=== PATIENT | female | born 1970 | race Caucasian/White ===

== ENCOUNTER 2020-08-30 11:08 | Emergency (ER) | payer MEDICAID, SELFPAY ==
[2020-08-30 11:23] VITALS: BP 148/71; PULSE 67; RESP 18; TEMP 36.6; O2SAT 98; BMI 37.1
--- NOTE | 2020-08-30 11:45 | ECG_ITS ---
Test Reason : SYNCOPE Blood Pressure : / mmHG Vent. Rate : 067 BPM Atrial Rate : 067 BPM P-R Int : 164 ms QRS Dur : 100 ms QT Int : 406 ms P-R-T Axes : 042 019 028 degrees QTc Int : 429 ms Normal sinus rhythm Normal ECG When compared with ECG of 26-FEB-2020 19:21, No significant change was found Referred By: Yuko Horan Electronically Signed By:Los Mora
--- NOTE | 2020-08-30 11:46 | CT_ITS ---
EXAMINATION: CT HEAD WITHOUT CONTRAST CT CERVICAL SPINE WITHOUT CONTRAST CLINICAL INFORMATION: Dizziness and syncope on with head injury/headache. COMPARISON: Cervical spine CT 12/26/2016. Head CT 08/24/2016. TECHNIQUE: CT of the head and cervical spine were performed without intravenous contrast. Multiplanar reformats were rendered and reviewed. This CT examination was performed using dose optimization techniques as appropriate, variously including the following: *Automated exposure control *Adjustment of mA and/or kV according to patient size (this includes techniques or standardized protocols for targeted exams where dose is matched to indication/reason for exam; i.e. extremities or head) *Use of iterative reconstruction technique DLP: 734 mGy-cm. FINDINGS: CT head: There is no intracranial hemorrhage, extra-axial collection, mass effect, or territorial infarction. The ventricles are normal in size and configuration without evidence of hydrocephalus. The calvarium is intact without fracture. The visualized paranasal sinuses and mastoid air cells are clear. CT cervical spine: There is reversal of the normal cervical lordosis but no traumatic listhesis is seen. The craniovertebral junction appears intact. There is no evidence of fracture. There is no significant narrowing of the spinal canal. There is advanced right-sided facet arthropathy at C2-C3. The extraspinal soft tissues are within normal limits. No consolidation is seen within the upper lungs. CT/CT cervical spine wo con IMPRESSION: CT head: - No acute intracranial abnormality. CT cervical spine: - No cervical spine fracture or traumatic malalignment. Advanced facet arthropathy on the right at C2-C3.
--- NOTE | 2020-08-30 11:46 | XR_ITS ---
EXAMINATION: XR chest 2V CLINICAL INFORMATION: Reason for Exam dizziness and syncopy on c head injury/GREEN COMPARISON: Prior study 08/24/2016. TECHNIQUE: XR chest 2V Lungs and Tosha: Both lungs are clear. Pleura: Normal. Costophrenic angles are sharp. No pneumothorax. Heart: The heart is normal in size. Mediastinum: The mediastinum is within normal limits.. Bones: Skeletal structures included are normal for patient's age. XR/XR chest 2V IMPRESSION: No radiographic evidence of acute infiltrates or failure.
--- NOTE | 2020-08-30 11:47 | XR_ITS ---
EXAMINATION: XR knee LT 4V CLINICAL INFORMATION: Reason for Exam pt c left knee pain s/p gadolinium without COMPARISON: None available at the time of this dictation. TECHNIQUE: frontal, lateral, tunnel and patella sunrise views FINDINGS: BONES: No fracture or dislocation is present. JOINTS: Narrowing of joint spaces and developed osteophytes from the edges of articular surfaces suggest degenerative osteoarthritis. SOFT TISSUE: Normal XR/XR knee LT 4V IMPRESSION: Mild to moderate degenerative osteoarthritis involving primarily the medial compartment. No joint effusion.
[2020-08-30 11:55] VITALS: BP 138/63; BP 152/78; PULSE 64; PULSE 66
[2020-08-30 11:56] VITALS: BP 133/67; PULSE 74
[2020-08-30 11:57] LABS: Basophils Absolute Auto 0.1 X10*3/uL (0.0-0.2); Basophils Percent Auto 0.8 % (0-2); Eosinophils Absolute Auto 0.4 X10*3/uL (0.0-0.4); Eosinophils Percent Auto 7.1 % (0-4); Hematocrit 41.5 % (37-47); Hemoglobin 13.6 g/dl (12.0-16.0); Imm Gran Abs Auto 0.01 X10*3/uL (0.00-0.03); Imm Gran Pct Auto 0.2 % (0.0-0.4); Lymphocytes Absolute Auto 1.9 X10*3/uL (1.2-4.9); Lymphocytes Percent Auto 32.7 % (20-40); MANUAL DIFF FLAG NO; Mean Corpuscular HGB Conc 32.8 g/dl (31.0-35.0); Mean Corpuscular Hemoglobin 30.9 pg (27.0-33.0); Mean Corpuscular Volume 94.3 fL (80-98); Mean Platelet Volume 9.7 fL (9.4-12.3); Monocytes Absolute Auto 0.5 X10*3/uL (0.1-1.2); Monocytes Percent Auto 7.8 % (2-11); Neutrophils Percent Auto 51.4 % (45-73); Platelet Count 289 X10*3/uL (160-400); Red Cell Distribution Width 12.9 % (11.0-16.0); White Blood Count 5.9 X10*3/uL (4.8-10.8)
[2020-08-30 12:00] VITALS: BP 133/67; PULSE 58; RESP 22; TEMP 36.6; O2SAT 99
[2020-08-30] MEDS: ondansetron HCL 4 MG/2 ML VIAL IVPUSH (12:02)
[2020-08-30] MEDS: 0.9 % Sodium Chloride 1,000 ML 999 ML IVCONT (12:02)
[2020-08-30] MEDS: oxyCODONE HCl Immed Release 5 MG TABLET PO (12:02)
[2020-08-30 12:04] LABS: Prothrombin Time 12.4 SEC (10.8-13.0)
[2020-08-30 12:10] LABS: D Dimer < 200 NG/ML
[2020-08-30 12:29] LABS: Alanine Aminotransferase 10 U/L (0-31); Albumin Level 3.9 g/dL (3.5-5.0); Alkaline Phosphatase 74 U/L (39-117); Anion Gap 11 (12-20); Aspartate Amino Transferase 12 U/L (5-31); Bilirubin Direct 0.2 mg/dL (0.0-0.5); Bilirubin Total 0.7 mg/dL (0.0-1.0); Blood Urea Nitrogen 15 mg/dL (9-16); Calcium 9.3 mg/dL (8.4-10.2); Carbon Dioxide 28 mmol/L (22-29); Chloride 103 mmol/L (96-108); Creatinine Clr Calc Pharmacy 95.5; Estimated Glomerular Filt Rate > 60; Glucose Random 76 mg/dL (60-115); Magnesium 1.7 mg/dL (1.6-2.6); Potassium 4.3 mmol/l (3.3-5.1); Sodium 138 mmol/L (135-145); Total Protein 6.9 g/dL (6.5-8.0)
--- NOTE | 2020-08-30 12:33 | ED.DIZZY ---
HPI - Dizziness General Chief Complaint: Syncope Stated Complaint: WEAKNESS Time Seen by Provider: 08/30/20 11:17 Source: patient Mode of arrival: ambulatory Limitations: no limitations History of Present Illness HPI Narrative: 49yoF c PMHx of anxiety, depression, fibromyalgia, arthritis, chronic back pain, neuropathy and IBS presenting to the ED with complaints of 2 syncopal episodes that occurred on with loss of consciousness and head injury along with injury to left knee. Reports she has had consistent dizziness worse with changing position usually when she stands up and starts to walk since and she has had a headache, neck pain and nausea since as well. Denies any fevers, chills, diaphoresis, chest pain, shortness of breath, focal weakness,, nasal congestion, ear discomfort, change in hearing, ringing in the ears, ear fullness, palpitations, hemoptysis, melena, change in medications, recent illness, recent trauma,, vision changes, difficulty speaking, difficulty swallowing, gait changes, facial numbness or any paresthesias, facial weakness, rectal bleeding or any other symptoms complaints or concerns at this time. Related Data Previous Rx's Medication Instructions Recorded oxycodone-acetaminophen [Percocet] 1 tab PO Q6H PRN #10 tab 08/30/20 Allergies Allergy/AdvReac Type Severity Reaction Status Date / Time amoxicillin [AMOXICILLIN] Allergy Unknown HIVES Unverified 05/29/20 18:05 codeine [Tylenol-Codeine] Allergy Unknown Verified 08/17/19 00:00 compazine Allergy Unknown Unverified 08/17/19 00:00 hydromorphone [From DILAUDID] Allergy Unknown VOMITING,DI Unverified 05/29/20 18:05 ZZY meperidine [Demerol] Allergy Unknown Verified 11/07/12 00:00 acetaminophen AdvReac Unknown VOMITING Unverified 05/29/20 18:05 [From Tylenol-Codeine] From COMPAZINE Allergy Unknown SEIZURE Uncoded 05/29/20 18:05 From DEMEROL Allergy Unknown RASH Uncoded 05/29/20 18:05 tylonol with codene Allergy Unknown Uncoded 11/07/12 00:00 From Tylenol-Codeine AdvReac Unknown VOMITING Uncoded 05/29/20 18:05 Review of Systems Review of Systems: Constitutional : No Fever, No Chills, No Night Sweats, No Fatigue, No Malaise ENT/Mouth : No Ear Pain, No Nasal Congestion, No Sinus Pain, No sore throat, No Rhinorrhea Eyes: No Eye Pain, No Swelling, No Redness, No Foreign Body, No Discharge, No Vision Changes Cardiovascular : No Chest Pain, No SOB, No Dyspnea on Exertion, No Orthopnea, No Palpitations Respiratory : No Cough, No Sputum, No Wheezing, No Dyspnea Gastrointestinal : + Nausea, No Vomiting, No Diarrhea, No Constipation, No abdominal Pain, No Hematochezia, No Melena Genitourinary : No Dysuria, No Urinary Frequency, No Urinary Incontinence, No Urgency, No Flank Pain Musculoskeletal : + joint pain, No Myalgias Skin : No lacerations Neuro : No Numbness, No Paresthesias, + Loss of Consciousness, + Dizziness, + Headache Yes all other systems are reviewed and are negative [facility] Past Medical History Attestation statement: The following information was validated with the patient. Medical History Arthritis delivery delivered Cholecystitis Fibromyalgia Neuropathy Social History Social History Smoking Status: Former smoker Use of substances other than those prescribed or required for medical reasons: No Advance Directives: No Advance Directives Information Provided: Yes Physical Exam Vital Signs: Vital Signs: Last Vital Signs Temp 97.6 F 08/30/20 14:00 Pulse 64 08/30/20 14:00 Resp 14 08/30/20 14:00 BP 125/62 08/30/20 14:00 Pulse Ox 98 08/30/20 14:00 Body Mass Index 37.1 Vital signs have been reviewed as normal and appeared to be correct. Blood pressure normal. Heart rate normal. Respiration rate normal. Temperature normal. Oxygen saturation normal. Appearance: Alert. Oriented X3. No acute distress. Head: Normal external exam. Normocephalic. Atraumatic. Able to rotate head bilaterally. Eyes: PERRLA. EOMI. No nystagmus noted. Conjunctiva and sclera normal. Eyelids normal. Corneal reflex normal. ENT: EAC normal. TM's Normal. Hearing normal. Pharynx normal. Uvula midline. tongue midline. Moist mucous membranes. No trismus noted. No drooling noted. No muffled voice noted. Neck: Normal inspection. Neck supple. FROM. No adenopathy. No meningeal signs. No neck mass noted. CVS: Normal heart rate and rhythm. Heart sound normal. No murmurs noted. Pulses normal throughout. Respiratory: No respiratory distress. Painless inspiration. Breath sounds normal. No wheezes/rales/rhonchi noted. Chest nontender. No accessory muscle usage noted or decreased air movement noted. Abdomen: Soft and nontender. Bowel sounds normal in all 4 quadrants. No distention noted. No organomegaly noted. No visible injury noted. Back: Full range of motion noted. No point tenderness. No step-offs or deformities noted. Patient has full range of motion. No rashes/lesions/induration/fluctuance or signs infection noted. No abrasions/lacerations/ecchymosis noted. Negative straight leg raise bilaterally. Skin: Skin warm and dry. Normal skin color. Normal skin turgor. No rashes/lesions/lacerations noted. Extremities: No lower extremity edema. Extremities exhibit normal range of motion. Left knee with mild soft tissue swelling and ecchymosis noted and tenderness to palpation although has full range of motion otherwise all other Extremities nontender. Able to shrug shoulders bilaterally and keep up against resistance. Neuro: Oriented X 3. No motor deficit. No sensory deficit. Reflexes normal. Moving all extremities. No focal motor deficits. Cranial nerves II-XI intact bilaterally. Facial strength normal. Normal cognition. Speech normal. Gait normal. Strength 5/5 throughout. No pronator drift. No tremor noted. No fasciculations noted. Muscle tone normal throughout. No asterixis noted. Tiifwm-ns-deap test normal. Heel to delacruz test normal. Tandem gait normal. Does not sway with eyes open. Romberg test negative. No rigidity noted. NIHSS score 0. Course Course Course Narrative: 11:46am - 49yoF c PMHx of anxiety, depression, fibromyalgia, arthritis, chronic back pain, neuropathy and IBS presenting to the ED c c/o 2 witnessed syncopal episodes that occurred on c LOC c persistent dizziness worse with walking, headache, neck pain, nausea, generalized weakness and left knee pain. Denies being on any blood thinners. - Concern for CVA vs SAH vs ACS vs Vertigo vs electrolyte abnormality - Plan: Labs, UA, SARS/flu/RSV swab, CT scan of brain/cervical spine, x-ray of left knee, CXR, EKG, Orthostatic vitals. Provide a Liter of IVF's, 5 mg of oxycodone, 4 mg of Zofran and re-evaluate Reevaluation(s) Reevaluation #1: - all labs within normal limits including troponin and a D-dimer. UA within normal limits no evidence of UTI. Chest x-ray within normal limits no acute processes noted. Normal limits no acute processes noted. X-ray of left knee revealed chronic changes no acute processes noted. EKG normal sinus rhythm no acute ischemic changes noted. Orthostatic vitals within normal limits patient denied any dizziness. I offer the patient admission for unknown cause of syncope and she declined at this time reports that she will come back if she starts to feel worse. Reports she feels better after the IV fluids. - will DC home with symptomatic treatment along with instructions return if any new or worsening symptoms to follow-up with PCP. Patient understands agrees the plan. Time: 14:37 [facility] - Dizziness Medical Records Attestation: I reviewed the patient's medical records. Lab Data Attestation: I reviewed the patient's lab results. Result diagrams: 08/30/20 11:49 08/30/20 11:49 Labs: Lab Results 08/30/20 08/30/20 08/30/20 Range/Units 11:49 11:49 11:49 WBC 5.9 (4.8-10.8) X10*3/uL RBC 4.40 (4.20-5.50) X10*6/uL Hgb 13.6 (12.0-16.0) g/dl Hct 41.5 (37-47) % MCV 94.3 (80-98) fL MCH 30.9 (27.0-33.0) pg MCHC 32.8 (31.0-35.0) g/dl RDW 12.9 (11.0-16.0) % Plt Count 289 (160-400) X10*3/uL MPV 9.7 (9.4-12.3) fL Immature Gran % (Auto) 0.2 (0.0-0.4) % Neut % (Auto) 51.4 (45-73) % Lymph % (Auto) 32.7 (20-40) % [place] % (Auto) 7.8 (2-11) % Eos % (Auto) 7.1 H (0-4) % Baso % (Auto) 0.8 (0-2) % Lymph # (Auto) 1.9 (1.2-4.9) X10*3/uL [place] # (Auto) 0.5 (0.1-1.2) X10*3/uL Eos # (Auto) 0.4 (0.0-0.4) X10*3/uL Baso # (Auto) 0.1 (0.0-0.2) X10*3/uL Abs Immat Gran (auto) 0.01 (0.00-0.03) X10*3/uL Absolute Neuts (auto) 3.0 (2.0-8.3) X10*3/uL Absolute Nucleated RBC 0.000 (0.0-0.012) X10*3/uL Nucleated RBC % (auto) 0.0 (0.0-0.2) /100WBC PT 12.4 (10.8-13.0) SEC INR 1.0 (0.9-1.1) D-Dimer < 200 NG/ML Sodium 138 (135-145) mmol/L Potassium 4.3 (3.3-5.1) mmol/l Chloride 103 (96-108) mmol/L Carbon Dioxide 28 (22-29) mmol/L Anion Gap 11 L (12-20) BUN 15 (9-16) mg/dL Creatinine 0.87 (0.5-1.4) mg/dL Estim Creat Clear Calc 95.5 Estimated GFR > 60 Random Glucose 76 (60-115) mg/dL Calcium 9.3 (8.4-10.2) mg/dL Magnesium 1.7 (1.6-2.6) mg/dL Total Bilirubin 0.7 (0.0-1.0) mg/dL Direct Bilirubin 0.2 (0.0-0.5) mg/dL AST 12 (5-31) U/L ALT 10 (0-31) U/L Alkaline Phosphatase 74 (39-117) U/L Troponin I High Sens (<3.5-17.0) ng/L B-Natriuretic Peptide (<100) pg/mL Total Protein 6.9 (6.5-8.0) g/dL Albumin 3.9 (3.5-5.0) g/dL Urine Color Urine Appearance Urine pH (5.0-8.0) Ur Specific [place] (1.005-1.025) Urine Protein (NEG-TRACE) MG/DL Urine Glucose (UA) (NEG) MG/DL Urine Ketones (NEG) MG/DL Urine Blood (NEG) Urine Nitrite (NEG) Ur Leukocyte Esterase (NEG) Urine RBC (0) /HPF Urine WBC (0-4) /HPF Ur Squamous Epith Cells /LPF Urine Bacteria /LPF Urine Opiates Screen (Not Detect) Ur Barbiturates Screen (Not Detect) Ur Phencyclidine Scrn (Not Detect) Ur Amphetamines Screen (Not Detect) U Benzodiazepines Scrn (Not Detect) Urine Cocaine Screen (Not Detect) U Marijuana (THC) Screen (Not Detect) Coronavirus (PCR) (Negative) Influenza Type A (PCR) (Negative) Influenza Type B (PCR) (Negative) RSV RNA Qual (PCR) (Negative) 08/30/20 08/30/20 08/30/20 Range/Units 11:49 11:50 12:23 WBC (4.8-10.8) X10*3/uL RBC (4.20-5.50) X10*6/uL Hgb (12.0-16.0) g/dl Hct (37-47) % MCV (80-98) fL MCH (27.0-33.0) pg MCHC (31.0-35.0) g/dl RDW (11.0-16.0) % Plt Count (160-400) X10*3/uL MPV (9.4-12.3) fL Immature Gran % (Auto) (0.0-0.4) % Neut % (Auto) (45-73) % Lymph % (Auto) (20-40) % [place] % (Auto) (2-11) % Eos % (Auto) (0-4) % Baso % (Auto) (0-2) % Lymph # (Auto) (1.2-4.9) X10*3/uL [place] # (Auto) (0.1-1.2) X10*3/uL Eos # (Auto) (0.0-0.4) X10*3/uL Baso # (Auto) (0.0-0.2) X10*3/uL Abs Immat Gran (auto) (0.00-0.03) X10*3/uL Absolute Neuts (auto) (2.0-8.3) X10*3/uL Absolute Nucleated RBC (0.0-0.012) X10*3/uL Nucleated RBC % (auto) (0.0-0.2) /100WBC PT (10.8-13.0) SEC INR (0.9-1.1) D-Dimer NG/ML Sodium (135-145) mmol/L Potassium (3.3-5.1) mmol/l Chloride (96-108) mmol/L Carbon Dioxide (22-29) mmol/L Anion Gap (12-20) BUN (9-16) mg/dL Creatinine (0.5-1.4) mg/dL Estim Creat Clear Calc Estimated GFR Random Glucose (60-115) mg/dL Calcium (8.4-10.2) mg/dL Magnesium (1.6-2.6) mg/dL Total Bilirubin (0.0-1.0) mg/dL Direct Bilirubin (0.0-0.5) mg/dL AST (5-31) U/L ALT (0-31) U/L Alkaline Phosphatase (39-117) U/L Troponin I High Sens < 3.5 (<3.5-17.0) ng/L B-Natriuretic Peptide 24 (<100) pg/mL Total Protein (6.5-8.0) g/dL Albumin (3.5-5.0) g/dL Urine Color YELLOW Urine Appearance CLEAR Urine pH 5.5 (5.0-8.0) Ur Specific [place] <= 1.005 (1.005-1.025) Urine Protein NEG (NEG-TRACE) MG/DL Urine Glucose (UA) NEG (NEG) MG/DL Urine Ketones NEG (NEG) MG/DL Urine Blood TRACE (NEG) Urine Nitrite NEG (NEG) Ur Leukocyte Esterase NEG (NEG) Urine RBC 0-2 (0) /HPF Urine WBC 0 (0-4) /HPF Ur Squamous Epith Cells TRACE /LPF Urine Bacteria NONE /LPF Urine Opiates Screen (Not Detect) Ur Barbiturates Screen (Not Detect) Ur Phencyclidine Scrn (Not Detect) Ur Amphetamines Screen (Not Detect) U Benzodiazepines Scrn (Not Detect) Urine Cocaine Screen (Not Detect) U Marijuana (THC) Screen (Not Detect) Coronavirus (PCR) NEGATIVE (Negative) Influenza Type A (PCR) NEGATIVE (Negative) Influenza Type B (PCR) NEGATIVE (Negative) RSV RNA Qual (PCR) NEGATIVE (Negative) 08/30/20 Range/Units 12:23 WBC (4.8-10.8) X10*3/uL RBC (4.20-5.50) X10*6/uL Hgb (12.0-16.0) g/dl Hct (37-47) % MCV (80-98) fL MCH (27.0-33.0) pg MCHC (31.0-35.0) g/dl RDW (11.0-16.0) % Plt Count (160-400) X10*3/uL MPV (9.4-12.3) fL Immature Gran % (Auto) (0.0-0.4) % Neut % (Auto) (45-73) % Lymph % (Auto) (20-40) % [place] % (Auto) (2-11) % Eos % (Auto) (0-4) % Baso % (Auto) (0-2) % Lymph # (Auto) (1.2-4.9) X10*3/uL [place] # (Auto) (0.1-1.2) X10*3/uL Eos # (Auto) (0.0-0.4) X10*3/uL Baso # (Auto) (0.0-0.2) X10*3/uL Abs Immat Gran (auto) (0.00-0.03) X10*3/uL Absolute Neuts (auto) (2.0-8.3) X10*3/uL Absolute Nucleated RBC (0.0-0.012) X10*3/uL Nucleated RBC % (auto) (0.0-0.2) /100WBC PT (10.8-13.0) SEC INR (0.9-1.1) D-Dimer NG/ML Sodium (135-145) mmol/L Potassium (3.3-5.1) mmol/l Chloride (96-108) mmol/L Carbon Dioxide (22-29) mmol/L Anion Gap (12-20) BUN (9-16) mg/dL Creatinine (0.5-1.4) mg/dL Estim Creat Clear Calc Estimated GFR Random Glucose (60-115) mg/dL Calcium (8.4-10.2) mg/dL Magnesium (1.6-2.6) mg/dL Total Bilirubin (0.0-1.0) mg/dL Direct Bilirubin (0.0-0.5) mg/dL AST (5-31) U/L ALT (0-31) U/L Alkaline Phosphatase (39-117) U/L Troponin I High Sens (<3.5-17.0) ng/L B-Natriuretic Peptide (<100) pg/mL Total Protein (6.5-8.0) g/dL Albumin (3.5-5.0) g/dL Urine Color Urine Appearance Urine pH (5.0-8.0) Ur Specific [place] (1.005-1.025) Urine Protein (NEG-TRACE) MG/DL Urine Glucose (UA) (NEG) MG/DL Urine Ketones (NEG) MG/DL Urine Blood (NEG) Urine Nitrite (NEG) Ur Leukocyte Esterase (NEG) Urine RBC (0) /HPF Urine WBC (0-4) /HPF Ur Squamous Epith Cells /LPF Urine Bacteria /LPF Urine Opiates Screen Not Detected (Not Detect) Ur Barbiturates Screen Not Detected (Not Detect) Ur Phencyclidine Scrn Not Detected (Not Detect) Ur Amphetamines Screen Not Detected (Not Detect) U Benzodiazepines Scrn Not Detected (Not Detect) Urine Cocaine Screen Not Detected (Not Detect) U Marijuana (THC) Screen POSITIVE H (Not Detect) Coronavirus (PCR) (Negative) Influenza Type A (PCR) (Negative) Influenza Type B (PCR) (Negative) RSV RNA Qual (PCR) (Negative) Imaging Data Chest x-ray: Attestation: I personally reviewed and interpreted this imaging study as follows: Radiologist's impression: IMPRESSION: No radiographic evidence of acute infiltrates or failure. Left knee x-ray: Attestation: I personally reviewed and interpreted this imaging study as follows: Radiologist's impression: IMPRESSION: Mild to moderate degenerative osteoarthritis involving primarily the medial compartment. No joint effusion. CT scan of brain and cervical spine: Attestation: I personally reviewed and interpreted this imaging study as follows: Radiologist's impression: IMPRESSION: CT head: - No acute intracranial abnormality. CT cervical spine: - No cervical spine fracture or traumatic malalignment. Advanced facet arthropathy on the right at C2-C3. ECG Data Attestation: I personally reviewed and interpreted this ECG as follows: ECG interpretation date: 08/30/20 ECG interpretation time: 11:25 Interpretation: Normal sinus rhythm with a ventricular rate of 67 and normal OH interval with normal QRS duration wound normal QT/QTC interval. No acute ischemic changes noted at this time. No prior EKG to compare to at this time. Discharge Plan Discharge Clinical Impression: Syncope, Head injury, Concussion, Left knee sprain Patient Disposition: Home, Self-Care Instructions: Knee Sprain (ED), Syncope (ED), Concussion (ED), Cervical Sprain (ED) Prescriptions: New oxycodone-acetaminophen [Percocet] 5-325 mg tablet 1 tab PO Q6H PRN (Reason: pain) Qty: 10 RF: 0 Referrals: Physician,None [Primary Care Provider] - 2 days (your pcp) Stand Alone Forms: Work/School Release Print Language: Ivorian
[2020-08-30 12:34] LABS: B Type Natriuretic Peptide 24 pg/mL (<100); Troponin-I High Sensitivity < 3.5 ng/L (<3.5-17.0)
[2020-08-30 12:47] LABS: Influenza A PCR NEGATIVE (Negative); Influenza B PCR NEGATIVE (Negative); Resp Syncy Virus RNA Qual PCR NEGATIVE (Negative); SARS COV2 PCR INHOUSE NEGATIVE (Negative)
--- NOTE | 2020-08-30 13:01 | PC.NURSE ---
pt reports feeling a little better after the pain medication, pain at 8/10, but still feeling a little dizzy, ns on the monitor
[2020-08-30 13:03] LABS: Glucose Urine UA NEG (NEG); Leukocyte Esterase Urine NEG (NEG); Nitrite Urine NEG (NEG); PH 5.5 (5.0-8.0); Specific Gravity - Urine <= 1.005 (1.005-1.025); Urine Blood TRACE (NEG); Urine Ketones NEG (NEG); Urine Protein NEG (NEG-TRACE)
[2020-08-30 13:11] LABS: Appearance Urine CLEAR; Color Urine YELLOW
[2020-08-30 13:20] LABS: RBC Urine 0-2 /HPF (0); Squamous Epithelial Cell Urine TRACE /LPF; WBC Urine 0 /HPF (0-4)
[2020-08-30 13:22] LABS: Amphetamine Screen Urine Not Detected (Not Detect); Barbiturates, Urine Not Detected (Not Detect); Benzodiazepines Screen Urine Not Detected (Not Detect); Cannabinoid Screen Urine POSITIVE (Not Detect); Opiate Screen Urine Not Detected (Not Detect); Phencyclidine Screen Urine Not Detected (Not Detect)
[2020-08-30 13:43] LABS: Cocaine Screen Urine Not Detected (Not Detect)
[2020-08-30 14:00] VITALS: BP 125/62; PULSE 64; RESP 14; TEMP 36.4; O2SAT 98
== END 2020-08-30 14:56 | disposition home or self-care (01) ==
PROVIDERS: Physician Assistant Medical; Emergency Provider Emergency Medicine
DX: S06.0X0A Concussion without loss of consciousness, initial encounter (principal); S83.92XA Sprain of unspecified site of left knee, initial encounter; R55 Syncope and collapse; R53.1 Weakness; F41.9 Anxiety disorder, unspecified; W01.0XXA Fall on same level from slipping, tripping and stumbling without subsequent striking against object, initial encounter; Y93.9 Activity, unspecified; Y92.9 Unspecified place or not applicable; Y99.9 Unspecified external cause status; Z79.899 Other long term (current) drug therapy
CPT/HCPCS: 0241U; 36415; 70450; 71046; 72125; 73564; 80048; 80076; 80307; 81001; 81003; 83735; 83880; 84484; 85025; 85379; 85610; 93005; 96361; 96374; 99285; J2405

== ENCOUNTER 2020-10-17 12:57 | Outpatient (REF) | payer OTHER, SELFPAY ==
--- NOTE | ~2020-10-17 | US_ITS ---
EXAMINATION: US VENOUS ULTRASOUND WITH DOPPLER LOWER EXTREMITY, LEFT CLINICAL INFORMATION: Left lower extremity pain. COMPARISON: None TECHNIQUE: Ultrasound of the deep veins is performed from the hip to the calf with compression sonography and color and pulse Doppler assessment. Spectral analysis with color-flow imaging is performed. FINDINGS: There is normal venous compression and respiratory variation and augmented flow. The visualized common femoral vein, superficial femoral vein, profunda femoral vein, popliteal vein, and the trifurcation region shows no evidence of deep venous thrombosis. There is no popliteal cyst. If the patient's symptoms persist, followup ultrasound in 5 days 7 days might be of value to exclude proximal propagation from a non-visualized calf vein. US/US venous duplex LE LT IMPRESSION: No evidence for deep venous thrombosis in the visualized veins of the left lower extremity.
== END 2020-10-17 12:58 | disposition home or self-care (01) ==
LOC: HO.HMGCX 12:57
PROVIDERS: PCP Internal Medicine; Visit Provider Nurse Practitioner Family
DX: M79.662 Pain in left lower leg (principal)
CPT/HCPCS: 93971

== ENCOUNTER 2020-10-24 17:49 | Emergency (ER) | payer OTHER, SELFPAY ==
--- NOTE | ~2020-10-24 | XR_ITS ---
EXAMINATION: XR LUMBOSACRAL SPINE CLINICAL INFORMATION: Pain. Sciatica COMPARISON: 08/24/2016 TECHNIQUE: Three views of the lumbosacral spine. FINDINGS: The vertebral bodies and posterior elements are normal. The disc spaces are preserved and the vertebral alignment is normal. The paraspinal soft tissues are normal. Surgical clips in the right upper quadrant likely from prior cholecystectomy. Pelvic clips noted as well. XR/XR lumbar spine 2-3V IMPRESSION: No acute bony abnormality. Not significantly changed from the prior study.
--- NOTE | ~2020-10-24 | US_ITS ---
EXAMINATION: US VENOUS ULTRASOUND WITH DOPPLER LOWER EXTREMITY, LEFT CLINICAL INFORMATION: Left leg pain and swelling with edema COMPARISON: DVT study 7 days ago on 10/17/2020 TECHNIQUE: Ultrasound of the deep veins is performed from the hip to the calf with compression sonography and color and pulse Doppler assessment. Spectral analysis with color-flow imaging is performed. FINDINGS: There is normal venous compression and respiratory variation and augmented flow. The visualized common femoral vein, superficial femoral vein, profunda femoral vein, popliteal vein, and the trifurcation region shows no evidence of deep venous thrombosis. There is no significant popliteal fossa cyst. The contralateral right common femoral vein appears normal. US/US venous duplex LE LT IMPRESSION: No DVT demonstrated in the left lower extremity.
--- NOTE | ~2020-10-24 | XR_ITS ---
EXAMINATION: LEFT KNEE AND LEFT HIP CLINICAL INFORMATION: Hip and knee pain COMPARISON: Left knee radiographs 08/30/2020 TECHNIQUE: 2 views pelvis with 2 additional views left hip, 4 views left knee FINDINGS: Pelvis and left hip: Surgical clips are present in the pelvis. No bony abnormality is seen. The hip joint appears unremarkable. Left knee: Some mild degenerative changes are present in the left knee with mild narrowing in the medial compartment with some associated osteophyte formation. Narrowing is also present at the patellofemoral compartment with some posterior osteophytes. No joint effusion is seen. There is been no interval change when compared to the prior study. XR/XR knee LT 4V IMPRESSION: Negative radiographs of the left hip Mild degenerative changes in the knee.
--- NOTE | ~2020-10-24 | XR_ITS ---
EXAMINATION: LEFT KNEE AND LEFT HIP CLINICAL INFORMATION: Hip and knee pain COMPARISON: Left knee radiographs 08/30/2020 TECHNIQUE: 2 views pelvis with 2 additional views left hip, 4 views left knee FINDINGS: Pelvis and left hip: Surgical clips are present in the pelvis. No bony abnormality is seen. The hip joint appears unremarkable. Left knee: Some mild degenerative changes are present in the left knee with mild narrowing in the medial compartment with some associated osteophyte formation. Narrowing is also present at the patellofemoral compartment with some posterior osteophytes. No joint effusion is seen. There is been no interval change when compared to the prior study. XR/XR hip LT min 2V IMPRESSION: Negative radiographs of the left hip Mild degenerative changes in the knee.
[2020-10-24 19:11] VITALS: BP 140/77; PULSE 74; RESP 18; TEMP 36.6; O2SAT 100; BMI 43.5
--- NOTE | 2020-10-24 21:54 | ED_ITS ---
HPI - Extremity Injury (Lower) General Chief Complaint: Extremity Injury, Lower Stated Complaint: leg pain Time Seen by Provider: 10/24/20 23:30 Source: patient Mode of arrival: ambulatory Limitations: no limitations History of Present Illness HPI Narrative: 50-year-old female with past medical history of chronic back pain, bulging cervical intervertebral disc disorder, anxiety, fibromyalgia, arthritis, fibromyalgia, IBS presents with several weeks of left knee pain. Her pain progressively increased had seen her primary care several times and given cyclobenzaprine with poor effect. She feels like the knee is swollen, that the leg is tight, and that she is also having a difficult time ambulating. She states her knee gave out twice over the past 24 hours. She does not report any fevers or chills, chest pain or pressure, chest pain on inspiration, palpitations, shortness of breath, abdominal pain, abdominal distention, dysuria, hematuria, weakness, lightheadedness, loss of sensation to the extremities, and indication of cauda equina. MD complaint: knee injury Onset (ago): week(s) (3) Type of Injury: unknown Severity: severe Severity scale (1-10): 10 Relieving factors: nothing Exacerbating factors: weight bearing and movement Associated symptoms: swelling and able to partially bear weight Other symptoms: none Treatments prior to arrival: cold therapy, NSAIDS and other (Elevation, muscle relaxers) Related Data Previous Rx's Medication Instructions Recorded oxycodone-acetaminophen [Percocet] 1 tab PO Q6H PRN #10 tab 08/30/20 cyclobenzaprine 10 mg tablet 10 mg PO BEDTIME PRN #10 tab 10/17/20 lidocaine 5 % topical patch 1 patch TOPICAL DAILY #15 ea 10/17/20 cyclobenzaprine 10 mg tablet 10 mg PO TID PRN #15 tab 10/20/20 tramadol 50 mg PO Q8H PRN #10 tab 10/24/20 tramadol 50 mg PO Q8H PRN #10 tab 10/24/20 Allergies Allergy/AdvReac Type Severity Reaction Status Date / Time amoxicillin [AMOXICILLIN] Allergy Unknown HIVES Verified 10/24/20 19:11 codeine [Tylenol-Codeine] Allergy Unknown Vomiting Verified 10/24/20 19:11 compazine Allergy Unknown Seizure Verified 10/24/20 19:11 hydromorphone [From DILAUDID] Allergy Unknown VOMITING,DI Verified 10/24/20 19:11 ZZY meperidine [Demerol] Allergy Unknown Rash Verified 10/24/20 19:11 Review of Systems Review of Systems: Constitutional: No Fever, No Chills ENT/Mouth: No Ear Pain, No Hoarseness, No sore throat Eyes: No Eye Pain, No Swelling, No Redness, No Foreign Body Cardiovascular: No Chest Pain, No SOB Respiratory: No Cough, No Dyspnea Gastrointestinal: No Nausea, No Vomiting, No Diarrhea, No abdominal Pain Genitourinary: No Dysuria, No Hematuria Musculoskeletal: positive left knee pain and left lower extremity swelling, No Myalgias, No Joint Swelling Skin: No Skin lacerations, No rash Neuro: No Weakness, No Numbness, No Paresthesias, No Loss of Consciousness, No Dizziness, No Headache Psych: No Anxiety/Panic, No Depression Heme/Lymph: no easy bruising, no Lymphadenopathy Endocrine: No Polyuria, No Polydipsia Yes all other systems are reviewed and are negative [facility] Past Medical History Attestation statement: The following information was validated with the patient. Source: old records reviewed Medical History Arthritis delivery delivered Cholecystitis Fibromyalgia Neuropathy Social History Social History Alcohol intake: unknown Smoking Status: Unknown if ever smoked Use of substances other than those prescribed or required for medical reasons: No Advance Directives: No Advance Directives Information Provided: Yes Physical Exam Vital Signs: Vital Signs: Last Vital Signs Temp 997.4 F H 10/24/20 21:58 Pulse 71 10/24/20 21:58 Resp 14 10/24/20 21:58 BP 129/80 10/24/20 21:58 Pulse Ox 100 10/24/20 21:58 Body Mass Index 43.5 Appearance: Alert. Oriented X3. No acute distress. Eyes: Pupils equal, round and reactive to light. ENT: Pharynx normal. Neck: Normal inspection. Neck supple. CVS: Normal heart rate and rhythm. Pulses normal. Respiratory: No respiratory distress. Breath sounds normal. Abdomen: Soft and nontender. Skin: Skin warm and dry. Normal skin color. Normal skin turgor. Extremities: Left lower extremity tender to palpation, no visible difference between size of left and right knee, no erythema or bruising noted. Neuro: No motor deficit. No sensory deficit. Course Course Course Narrative: 50-year-old female with past medical history of chronic back pain, bulging cervical intervertebral disc disorder, anxiety, fibromyalgia, arthritis, fibromyalgia, IBS presents with several weeks of left knee pain. She has been seen several times by her primary care physician, ultrasound study approximately 2 weeks ago was negative for DVT. While I do not appreciate any notable differences in size to bilateral lower extremities, patient is insistent that there is tightness and swelling to the left lower extremity which is greater than the right, new onset of sciatica, and that her knee gives out. Plan is to rule out DVT, will do three view x-rays, as she is complaining of sciatica to the left hip we will order hip x-ray and lumbar spine x-ray. Ultrasound negative for acute findings, x-rays are negative with the exception of finding degenerative joint disease in the left knee. Plan of care is to follow-up with orthopedics. It is noted that she gets regular prescriptions for oxycodone last being in August of 2020 from Orthopedics. At this time we will order tramadol. Patient verbalized understanding of and agrees to plan of care to discharge home. MDM - Extremity Injury (Lower) MDM Narrative Medical decision making narrative: DVT, effusion, arthritis Differential Diagnosis Differential diagnosis: Likely acute internal derangement of knee Medical Records Attestation: I reviewed the patient's medical records. Lab Data Attestation: I reviewed the patient's lab results. Imaging Data Venous US: Attestation: I personally reviewed and interpreted this imaging study as follows: Radiologist's impression: EXAMINATION: US VENOUS ULTRASOUND WITH DOPPLER LOWER EXTREMITY, LEFT CLINICAL INFORMATION: Left leg pain and swelling with edema COMPARISON: DVT study 7 days ago on 10/17/2020 TECHNIQUE: Ultrasound of the deep veins is performed from the hip to the calf with compression sonography and color and pulse Doppler assessment. Spectral analysis with color-flow imaging is performed. FINDINGS: There is normal venous compression and respiratory variation and augmented flow. The visualized common femoral vein, superficial femoral vein, profunda femoral vein, popliteal vein, and the trifurcation region shows no evidence of deep venous thrombosis. There is no significant popliteal fossa cyst. The contralateral right common femoral vein appears normal. US/US venous duplex LE LT IMPRESSION: No DVT demonstrated in the left lower extremity. Knee hip and lumbar spine x-ray: Attestation: I personally reviewed and interpreted this imaging study as follows: Radiologist's impression: TECHNIQUE: Three views of the lumbosacral spine. FINDINGS: The vertebral bodies and posterior elements are normal. The disc spaces are preserved and the vertebral alignment is normal. The paraspinal soft tissues are normal. Surgical clips in the right upper quadrant likely from prior cholecystectomy. Pelvic clips noted as well. XR/XR lumbar spine 2-3V IMPRESSION: No acute bony abnormality. Not significantly changed from the prior study. EXAMINATION: LEFT KNEE AND LEFT HIP CLINICAL INFORMATION: Hip and knee pain COMPARISON: Left knee radiographs 08/30/2020 TECHNIQUE: 2 views pelvis with 2 additional views left hip, 4 views left knee FINDINGS: Pelvis and left hip: Surgical clips are present in the pelvis. No bony abnormality is seen. The hip joint appears unremarkable. Left knee: Some mild degenerative changes are present in the left knee with mild narrowing in the medial compartment with some associated osteophyte formation. Narrowing is also present at the patellofemoral compartment with some posterior osteophytes. No joint effusion is seen. There is been no interval change when compared to the prior study. XR/XR knee LT 4V IMPRESSION: Negative radiographs of the left hip Mild degenerative changes in the knee. Discharge Plan Discharge Clinical Impression: Arthritis, Osteophyte of left knee Patient Disposition: Home, Self-Care Instructions: Arthritis (ED) Additional Instructions: You were evaluated for left knee pain. Venous duplex is negative for DVT, x- rays are negative for fractures or dislocation of the left knee, does show some osteophytes. X-rays of the lumbar spine and hip are negative for acute findings or fractures. You need to follow-up with orthopedics for further evaluation. Please call and make an appointment. We prescribed tramadol for pain management. Tramadol is a narcotic and has high risk for addiction and abuse. The drive or operate machinery while taking this medication. This medication has high risk for falls, delayed reaction time, and constipation. Use MiraLax and or Colace as needed to soften stools. Thank you for choosing this emergency department for evaluation. Please follow-up with primary care physician as needed. Return to the emergency d epartment for any new, concerning, or worsening symptoms. Prescriptions: New tramadol 50 mg tablet 50 mg PO Q8H PRN (Reason: pain) Qty: 10 RF: 0 tramadol 50 mg tablet 50 mg PO Q8H PRN (Reason: pain) Qty: 10 RF: 0 No Action cyclobenzaprine 10 mg tablet 10 mg PO BEDTIME PRN (Reason: muscle spasm) Qty: 10 RF: 0 lidocaine 5 % adhesive patch,medicated 1 patch topical DAILY Qty: 15 RF: 0 oxycodone-acetaminophen [Percocet] 5-325 mg tablet 1 tab PO Q6H PRN (Reason: pain) Qty: 10 RF: 0 cyclobenzaprine 10 mg tablet 10 mg PO TID PRN (Reason: muscle spasm) Qty: 15 RF: 0 Referrals: Red Alva MD [Physician] - 2 days (Left knee osteophytes and degeneration) Interventions: ED Discharge Assessment Last Done: 10/24/20 23:12 Discharge Date/Time: 10/24/20 23:37
[2020-10-24 21:58] VITALS: BP 129/80; PULSE 71; RESP 14; TEMP 536.3; TEMP 997.4; O2SAT 100
[2020-10-24] MEDS: traMADoL HCL 50 MG TABLET PO (23:09)
== END 2020-10-24 23:37 | disposition home or self-care (01) ==
PROVIDERS: Emergency Provider Emergency Medicine; PCP Internal Medicine
DX: M17.12 Unilateral primary osteoarthritis, left knee (principal); M25.762 Osteophyte, left knee; M25.562 Pain in left knee
CPT/HCPCS: 72100; 73502; 73564; 93971; 99284

== ENCOUNTER 2020-10-30 09:39 | Outpatient (RCR) | payer OTHER, SELFPAY ==
--- NOTE | 2020-10-30 19:56 | MHC.PT.EP ---
[facility] [place] [facility] [place] [facility] [place] [facility] [address] Misty Regan [address] [phone] F: [phone] F: [phone] F: [phone] F: [phone] Physical Therapy Plan of Care Date of Evaluation: 10/30/20 Date of Surgery: Diagnosis: Paraspinal muscle spasm. Assessment: Pt is a 50 y/o female referred to PT for eval and treat of paraspinal muscle spasm who presents with signs and Sx consistent with diagnoses as well as pelvic and L LE dysfunction resulting in decreased tolerance and ability for performing HH chores, standing and walking for duration, sitting for long duration, and disturbed sleep secondary to increased LE tissue tension, presence of lumbar paraspinal spasm with deep palpation, decreased posture, gait abnormalities, decreased hip strength and pain. Pt is deemed an appropriate candidate to receive skilled PT in order to address her physical limitations to improve her functional ability. Frequency and Duration: The patient will be seen 2 x / wk x 4 wks. Short Term Goals: in 1 week: initiate HEP with evidence of compliance. In 2 weeks: Assess length and intensity of treatment program after her orthopedic assessment for L knee pain. Nursing Home Goals: In 4 weeks: Pt will be able to tolerate her usual HH chores without limitations d/t back pain. In 4 weeks: I with HEP. Treatment Plan: Modalities to reduce pain, spasms and effusion. Manual therapy to restore motion and function. Therapeutic exercise to improve strength and flexibility. Neuromuscular re-education for posture and balance. Therapeutic activities to return to functional activities of daily living. Electronically signed by: Piyush Guajardo PT. Please sign and return to therapist. Thank you for your referral.
== END 2021-01-01 09:58 | disposition home or self-care (01) ==
LOC: HO.PTCHIC 09:39
PROVIDERS: PCP Internal Medicine; Visit Provider Nurse Practitioner Family
DX: M62.830 Muscle spasm of back (principal)
CPT/HCPCS: 97110; 97162

== ENCOUNTER → 2020-11-04 10:54 | Outpatient (BNVA) | payer OTHER, SELFPAY | PROVIDERS: PCP Internal Medicine; Visit Provider Physician Assistant | DX: Z13.89 Encounter for screening for other disorder (principal) | CPT/HCPCS: 99202 ==

== ENCOUNTER 2020-11-27 09:15 | Outpatient (REF) | payer OTHER, SELFPAY ==
[2020-11-27 11:12] LABS: MANUAL DIFF FLAG NO
[2020-11-27 11:22] LABS: Basophils Percent Auto 0.2 % (0-2); Eosinophils Percent Auto 0.3 % (0-4); Hematocrit 39.1 % (37-47); Imm Gran Abs Auto 0.04 X10*3/uL (0.00-0.03); Imm Gran Pct Auto 0.4 % (0.0-0.4); Lymphocytes Absolute Auto 2.2 X10*3/uL (1.2-4.9); Lymphocytes Percent Auto 19.6 % (20-40); Mean Corpuscular HGB Conc 33.2 g/dl (31.0-35.0); Mean Corpuscular Hemoglobin 31.3 pg (27.0-33.0); Mean Corpuscular Volume 94.2 fL (80-98); Mean Platelet Volume 9.8 fL (9.4-12.3); Monocytes Absolute Auto 0.7 X10*3/uL (0.1-1.2); Monocytes Percent Auto 6.5 % (2-11); Neutrophils Absolute Auto 8.2 X10*3/uL (2.0-8.3); Platelet Count 378 X10*3/uL (160-400); Red Blood Count 4.15 X10*6/uL (4.20-5.50); Red Cell Distribution Width 13.7 % (11.0-16.0); White Blood Count 11.2 X10*3/uL (4.8-10.8)
[2020-11-27 11:41] LABS: Estimated Average Glucose 91 mg/dL; Hemoglobin A1c % 4.8 %
[2020-11-27 11:58] LABS: Alanine Aminotransferase 12 U/L (0-31); Albumin Level 4.4 g/dL (3.5-5.0); Alkaline Phosphatase 79 U/L (39-117); Anion Gap 13 (12-20); Aspartate Amino Transferase 13 U/L (5-31); Bilirubin Total 0.6 mg/dL (0.0-1.0); Blood Urea Nitrogen 21 mg/dL (9-16); Calcium 9.7 mg/dL (8.4-10.2); Carbon Dioxide 26 mmol/L (22-29); Chloride 106 mmol/L (96-108); Cholesterol 226 mg/dL; Estimated Glomerular Filt Rate > 60; Glucose Fasting 87 mg/dL (60-99); HDL Cholesterol 74 mg/dL; LDL Cholesterol Calculated 130 mg/dl; Potassium 4.3 mmol/L (3.3-5.1); Sodium 141 mmol/L (135-145); Total Protein 7.5 g/dL (6.5-8.0); Triglycerides 110 mg/dL
[2020-11-27 12:01] LABS: TSH reflex Free T4 0.68 uIU/mL (0.32-4.0)
== END 2020-11-27 09:16 | disposition home or self-care (01) ==
LOC: HO.HMGCLDS 09:15
PROVIDERS: PCP Internal Medicine; Visit Provider Internal Medicine
DX: E66.01 Morbid (severe) obesity due to excess calories (principal); M62.838 Other muscle spasm; K21.9 Gastro-esophageal reflux disease without esophagitis; M54.5 Low back pain; Z91.09 Other allergy status, other than to drugs and biological substances; M54.16 Radiculopathy, lumbar region
CPT/HCPCS: 36415; 80053; 80061; 83036; 84443; 85025

== ENCOUNTER → 2021-01-01 15:01 | Outpatient (BNVA) | payer OTHER, SELFPAY | PROVIDERS: PCP Internal Medicine; Visit Provider Anesthesiology | DX: M79.7 Fibromyalgia (principal); M17.12 Unilateral primary osteoarthritis, left knee | CPT/HCPCS: 99202 ==

== ENCOUNTER 2021-01-08 09:30 | Outpatient (REF) | payer OTHER, SELFPAY ==
[2021-01-13 15:17] LABS: HPV mRNA E6/E7 rflx Not Detected (Not Detected)
== END 2021-01-08 09:31 | disposition home or self-care (01) ==
LOC: HO.LAB 09:30
PROVIDERS: PCP Internal Medicine; Visit Provider Obstetrics & Gynecology
DX: Z01.419 Encounter for gynecological examination (general) (routine) without abnormal findings (principal); Z11.51 Encounter for screening for human papillomavirus (HPV)
CPT/HCPCS: 87624; 88142

== ENCOUNTER → 2021-02-12 11:37 | Outpatient (BNVA) | payer OTHER, SELFPAY | PROVIDERS: PCP Internal Medicine; Referring Provider Internal Medicine; Visit Provider Nurse Practitioner Family ==

== ENCOUNTER 2021-02-19 07:32 | Outpatient (REF) | payer OTHER, SELFPAY ==
--- NOTE | ~2021-02-19 | MM_ITS ---
EXAMINATION: MM SCREENING DIGITAL BREAST TOMOSYNTHESIS, BILATERAL CLINICAL INFORMATION: Screening. Asymptomatic. The lifetime risk of breast cancer based on the Tyrer-Cuzick Model is 9.3%. COMPARISON: Mammography: June 06, 2017 and studies dating back to October 12, 2012 TECHNIQUE: Digital breast tomosynthesis is performed in both the craniocaudal and mediolateral oblique views along with computer-aided detection (CAD). Synthesized 2D images are generated from the tomosynthesis. FINDINGS: The breasts are almost entirely fatty (ACR BI-RADS breast composition Category a). There are no significant masses, abnormal calcifications, or other abnormalities. MM/MM tomosynthesis screening BI IMPRESSION: There are no significant changes from prior study. ASSESSMENT: BI-RADS 1: Negative RECOMMENDATION: Routine annual mammography screening. This patient's information was entered into a reminder system with a target due date for their next mammogram.
== END 2021-02-19 07:33 | disposition home or self-care (01) ==
LOC: HO.MAMMO 07:32
PROVIDERS: Visit Provider Obstetrics & Gynecology
DX: Z12.31 Encounter for screening mammogram for malignant neoplasm of breast (principal)
CPT/HCPCS: 77063; 77067

== ENCOUNTER 2021-03-23 08:49 | Day surgery (SDC) | payer OTHER, SELFPAY ==
[2021-03-17 14:48] VITALS: BMI 44.6
--- NOTE | 2021-03-20 08:55 | HO.ANESPROP2 ---
HPI - Anesthesia Eval Consult details Narrative: 50yo F for Colonoscopy PMFSH Active Problems Active Problems: All Active Problems (Updated 01/28/21 @ 13:21 by Juliet Torres MD) Encounter for general adult medical examination with abnormal findings (Acute) Well woman exam (Acute) Osteoarthritis of left knee (Acute) Fibromyalgia (Acute) Muscle spasm (Acute) Establishing care with new doctor, encounter for (Acute) Muscle spasms of both lower extremities (Acute) Chronic GERD (Acute) Lumbar pain (Acute) Environmental allergies (Acute) Left lumbar radiculitis (Acute) Morbid obesity (Acute) Degenerative disc disease (Acute) Sciatica (Acute) Osteoarthritis of left knee (Acute) Paraspinal muscle spasm (Acute) Pain of left calf (Acute) IBS (irritable bowel syndrome) (Acute) Depression (Acute) Asthma (Acute) Bulging of cervical intervertebral disc (Acute) Anxiety disorder (Acute) Chronic back pain (Acute) Neuropathy (Acute) Fibromyalgia (Acute) Cholecystitis (Acute) delivery delivered (Acute) Arthritis (Acute) Past Medical History Medical History Anxiety disorder Arthritis Asthma delivery delivered Cholecystitis Chronic back pain Chronic GERD Depression Fibromyalgia IBS (irritable bowel syndrome) Morbid obesity Neuropathy Osteoarthritis of left knee Family History Family History Maternal Grandmother Ovarian ca Surgical History Surgical History H/O knee surgery H/O oophorectomy Hx of section Social History Social History Alcohol intake: current Alcohol intake frequency: a few times a month Alcohol type: beer Patient Tobacco Use Status: Never used Tobacco Use of substances other than those prescribed or required for medical reasons: Yes Are you DNR?: No Advance Directives: No Advance Directives Information Provided: Yes Nutrition Risks: No Nutritional Risk Patient : No Meds Allergies Allergy/AdvReac Type Severity Reaction Status Date / Time amoxicillin [AMOXICILLIN] Allergy Unknown HIVES Verified 02/12/21 11:49 codeine [Tylenol-Codeine] Allergy Unknown Vomiting Verified 02/12/21 11:49 compazine Allergy Unknown Seizure Verified 02/12/21 11:49 hydromorphone [From DILAUDID] Allergy Unknown VOMITING,DI Verified 02/12/21 11:49 ZZY meperidine [Demerol] Allergy Unknown Rash Verified 02/12/21 11:49 Home Medications Medication Instructions Recorded Confirmed Last Taken Type fluticasone propionate INTRANASAL 11/26/20 01/28/21 Unknown History Ca [id number]-inos-silicon PO DAILY 01/28/21 01/28/21 Unknown History rhubarb root extract 4 mg tablet mg PO 02/12/21 Unknown History Exam Exam Date and Time: March 20, 2021 0855 Height,Weight and Vital Signs: Height 5 ft 6 in Weight 125.645 kg Pertinent Lab Results Pertinent Lab Results: Laboratory Tests 11/27/20 11/27/20 09:20 09:20 WBC 11.2 H Hgb 13.0 Hct 39.1 Plt Count 378 D Sodium 141 Potassium 4.3 Chloride 106 Carbon Dioxide 26 BUN 21 H Creatinine 0.91 Narrative Narrative: EKG 08/2020 Vent. Rate : 067 BPM Atrial Rate : 067 BPM P-R Int : 164 ms QRS Dur : 100 ms QT Int : 406 ms P-R-T Axes : 042 019 028 degrees QTc Int : 429 ms Normal sinus rhythm Normal ECG When compared with ECG of 26-FEB-2020 19:21, No significant change was found Assessment and Plan Assessment Anesthesia Assessment: Chart Reviewed
[2021-03-23 09:07] VITALS: BMI 42.9
[2021-03-23 09:22] VITALS: BP 131/61; PULSE 74; RESP 16; TEMP 36.8; O2SAT 96
[2021-03-23] MEDS: Lactated Ringers 1,000 ML 100 ML IVCONT (09:32)
--- NOTE | 2021-03-23 09:50 | HO.ANESPROP2 ---
REPLACED BY [facility] Active Problems Active Problems: All Active Problems (Updated 03/20/21 @ 08:57 by Cecile Jansen) IBS (irritable bowel syndrome) (Acute) Chronic GERD (Acute) Encounter for general adult medical examination with abnormal findings (Acute) Well woman exam (Acute) Osteoarthritis of left knee (Acute) Fibromyalgia (Acute) Muscle spasm (Acute) Establishing care with new doctor, encounter for (Acute) Muscle spasms of both lower extremities (Acute) Lumbar pain (Acute) Environmental allergies (Acute) Left lumbar radiculitis (Acute) Degenerative disc disease (Acute) Sciatica (Acute) Osteoarthritis of left knee (Acute) Paraspinal muscle spasm (Acute) Pain of left calf (Acute) Bulging of cervical intervertebral disc (Acute) Neuropathy (Acute) Fibromyalgia (Acute) Cholecystitis (Acute) delivery delivered (Acute) Arthritis (Acute) Past Medical History Medical History Anxiety disorder Arthritis Asthma delivery delivered Cholecystitis Chronic back pain Chronic GERD Depression Fibromyalgia IBS (irritable bowel syndrome) Morbid obesity Neuropathy Osteoarthritis of left knee Family History Family History Maternal Grandmother Ovarian ca Surgical History Surgical History H/O knee surgery H/O oophorectomy Hx of section Social History Social History Alcohol intake: current Alcohol intake frequency: a few times a month Alcohol type: beer Patient Tobacco Use Status: Never used Tobacco Use of substances other than those prescribed or required for medical reasons: Yes Are you DNR?: No Advance Directives: No Advance Directives Information Provided: Yes Nutrition Risks: No Nutritional Risk Patient : No Meds Allergies Allergy/AdvReac Type Severity Reaction Status Date / Time amoxicillin [AMOXICILLIN] Allergy Unknown HIVES Verified 02/12/21 11:49 codeine [Tylenol-Codeine] Allergy Unknown Vomiting Verified 02/12/21 11:49 compazine Allergy Unknown Seizure Verified 02/12/21 11:49 hydromorphone [From DILAUDID] Allergy Unknown VOMITING,DI Verified 02/12/21 11:49 ZZY meperidine [Demerol] Allergy Unknown Rash Verified 02/12/21 11:49 Active Medications: Current Medications Generic Name Dose Route Start Last Admin Trade Name Freq PRN Reason Stop Dose Admin Albuterol Sulfate 2.5 mg 03/23/21 09:00 Albuterol Sulfate (0.083%) 2.5 Mg/3 Ml Vial.Neb INHALE ONCE PRN Shortness of Breath/Wheezing Lactated Ringer's 1,000 mls @ 100 mls/hr 03/23/21 09:00 03/23/21 09:32 Lr IVCONT 100 mls/hr .Q10H JO Administration Home Medications Medication Instructions Recorded Confirmed Last Taken Type fluticasone propionate INTRANASAL 11/26/20 01/28/21 Unknown History Ca [id number]-inos-silicon PO DAILY 01/28/21 01/28/21 Unknown History rhubarb root extract 4 mg tablet mg PO 02/12/21 Unknown History Exam Exam Date and Time: March 23, 2021 0950 Height,Weight and Vital Signs: Height 5 ft 6 in Weight 120.656 kg Last Vital Signs Temp 98.2 F 03/23/21 09:22 Pulse 74 03/23/21 09:22 Resp 16 03/23/21 09:22 BP 131/61 03/23/21 09:22 Pulse Ox 96 03/23/21 09:22 Airway Mallampati Class: III TM Dist: >3cm Neck ROM: Full Heart: RRRrR Lungs: CTA
--- NOTE | 2021-03-23 09:54 | MHC.SHP ---
Pre-Procedural Eval Section A Date of Service: 03/23/21 The patient is an INPATIENT: No The History & Physical has been completed within 30 days and I have reviewed it.: No Section B Chief Complaint: Screening Details of Present Illness: colon cancer screening Present Medications: see Short Stay Collaborative assessment Medical History: Significant History (Arthritis delivery delivered Cholecystitis Fibromyalgia Fibromyalgia Neuropathy Osteoarthritis of left knee) History of Previous Operations: Relevant previous surgery/procedure and date(s) (H/O knee surgery H/O oophorectomy Hx of section) Allergies: Allergies Allergy/AdvReac Type Severity Reaction Status Date / Time amoxicillin [AMOXICILLIN] Allergy Unknown HIVES Verified 02/12/21 11:49 codeine [Tylenol-Codeine] Allergy Unknown Vomiting Verified 02/12/21 11:49 compazine Allergy Unknown Seizure Verified 02/12/21 11:49 hydromorphone [From DILAUDID] Allergy Unknown VOMITING,DI Verified 02/12/21 11:49 ZZY meperidine [Demerol] Allergy Unknown Rash Verified 02/12/21 11:49 Review of Systems Sugical H&P ROS: Negative: Constitution, Cardiovascular and Respiratory and Yes, Specify: Gastrointestinal (IBS with diarrhea and constipation) Exam Surgical H&P Exam: Normal: Heart, Normal: Lungs, Normal: Extremities and Normal: Abdomen Plan Diagnosis/Plan: Unchanged I have reviewed the history and physical and performed a pertinent physical examination on my patient. No changes have occurred unless specified.
[2021-03-23 10:52] VITALS: BP 133/79; PULSE 81; RESP 16; TEMP 36.1; O2SAT 97
[2021-03-23 11:07] VITALS: BP 141/76; PULSE 71; RESP 16; O2SAT 100
[2021-03-23 11:22] VITALS: BP 135/67; PULSE 70; RESP 16; TEMP 36.2; O2SAT 100
[2021-03-23] MEDS: ondansetron HCL 4 MG/2 ML VIAL IVPUSH (11:22)
--- NOTE | 2021-03-23 14:03 | HO.POSTANES ---
Post Anesthesia Evaluation Post Anesthesia Evaluation Vital Signs: Vital Signs Temp Pulse Resp BP Pulse Ox 03/23/21 11:22 97.2 F 70 16 135/67 100 03/23/21 11:07 71 16 141/76 H 100 03/23/21 10:52 97.0 F 81 16 133/79 97 03/23/21 09:22 98.2 F 74 16 131/61 96 Anesthesia: Monitored Mental Status: Awake Pain Control: Satisfactory Nausea/Vomiting: None Hydration: Adequate Anesthesia-Related Issues: No Anes. Related Issues
--- NOTE | 2021-03-23 17:22 | P.OP_ITS ---
Operative Note Operative Note Date of Service: 03/23/21 Narrative: Pre-op diagnosis: Colon cancer screening, IBS and diarrhea constipation Post-op diagnosis: other (Colon polyps, diverticulosis, hemorrhoids) Procedure: COLONOSCOPY TILL CECUM WITH BIOPSIES AND SNARE POLYPECTOMY Consent: Indications for the procedure and potential complications of bleeding, perforation, reaction to medications and missed diagnosis were discussed with the patient and informed consent was obtained. Instrument: Olympus PCF H 190 L variable stiffness pediatric colonoscope Monitoring: Vital signs and clinical assessment, intermittent blood pressure monitoring, continuous EKG monitoring, Pulse oximetry and Carbon Dioxide monitoring were done throughout the procedure. Colon withdrawl time was 30 minutes. Procedure: The patient was placed in the left lateral decubitis position and pre-procedure medications were administered. After a digital rectal examination of the ano-rectum, the video colonoscope was inserted into the rectum and advanced through the colon to the cecum. The colonoscope was slowly withdrawn in a retrograde panoramic fashion and the colon mucosa was carefully examined including a retroflexed view of the rectum. Findings and interventions are described below. Procedure Difficulty: Without difficulty Findings: Terminal Ileum: Distal 5-6 cm was examined and appeared normal Cecum: Normal Ascending Colon: A 9-10 mm sessile polyp removed with a cold snare Transverse Colon: Normal Descending Colon: Moderate diverticulosis Sigmoid Colon: Two 7-10 mm sessile polyps removed with a cold snare. A 12-15 mm sessile polyp removed with a hot snare. A 2 cms pedunculated polyp at 30 cms removed with a hot snare. Moderate diverticulosis Rectum: Normal Ano-rectum: Moderate internal hemorrhoids and perianal skin tags. Colon preparation: Good after some irrigation Impression and Post Procedure Diagnosis: Colonoscopy Findings: Five medium sized polyps removed Moderate diverticulosis seen in the left colon Moderate hemorrhoids on retroflexed exam. Plan: Await pathology results Patient has an appointment on 04/08/21 in the [facility] with Hallie Bullard FNP-BC. Repeat Colonoscopy interval based on path results - in 2 years if polyps are adenomatous and 10 years if polyps are hyperplastic. Above findings were reviewed with the patient and colon polyps and diverticulosis handouts were given in the discharge area Surgeon: Andrés Anton MD Anesthesia: MAC (Dr Johnson) Was an Small Package And Bundle Sorter Clerk used for this Procedure?: Yes Small Package And Bundle Sorter Clerk: Rene Valadez Estimated blood loss (mL): 0 Pathology: other (A- RANDOM COLON BXS R/O MICROSCOPIC COLITIS B- ASCENDING COLON POLYP C- SIGMOID COLON POLYPS D- SIGMOID COLON POLYP AT 30CM) Condition: stable Disposition: PACU
== END 2021-03-23 11:47 | disposition home or self-care (01) ==
PROVIDERS: PCP Internal Medicine; Visit Provider Internal Medicine Gastroenterology
PROC: 0DJD8ZZ Inspection of Lower Intestinal Tract, Via Natural or Artificial Opening Endoscopic (ICD-10-PCS; CPT 45378; principal; 2021-03-23 10:00)
DX: Z12.11 Encounter for screening for malignant neoplasm of colon (principal); D12.2 Benign neoplasm of ascending colon; D12.5 Benign neoplasm of sigmoid colon; K57.30 Diverticulosis of large intestine without perforation or abscess without bleeding; K64.8 Other hemorrhoids; K64.4 Residual hemorrhoidal skin tags; K21.9 Gastro-esophageal reflux disease without esophagitis; J45.909 Unspecified asthma, uncomplicated; K58.9 Irritable bowel syndrome, unspecified; E66.01 Morbid (severe) obesity due to excess calories; Z68.41 Body mass index [BMI] 40.0-44.9, adult; M79.7 Fibromyalgia; G62.9 Polyneuropathy, unspecified; Z79.899 Other long term (current) drug therapy; Z88.0 Allergy status to penicillin; Z88.8 Allergy status to other drugs, medicaments and biological substances
CPT/HCPCS: 45385; 45380; 88305; J2405

== ENCOUNTER → 2021-04-08 09:24 | Outpatient (BNVA) | payer OTHER, SELFPAY | PROVIDERS: PCP Internal Medicine; Visit Provider Nurse Practitioner Family ==

== ENCOUNTER 2021-05-26 13:28 | Outpatient (REF) | payer OTHER, SELFPAY ==
--- NOTE | ~2021-05-26 | XR_ITS ---
EXAMINATION: XR CERVICAL SPINE CLINICAL INFORMATION: Cervicalgia. COMPARISON: 03/15/2015. TECHNIQUE: Frontal, lateral, both oblique, open mouth and swimmer's view of the cervical spine were obtained. FINDINGS: The heights, alignments of the cervical vertebrae are well-maintained. Intervertebral disc heights are well-maintained. The posterior appendages are intact. No significant foraminal narrowing is noted on either side. The prespinal soft tissues are unremarkable. The C1-C2 alignment is intact. Both lung apices are clear. XR/XR cervical spine min 6V IMPRESSION: Unremarkable radiographic appearance of the cervical spine. No significant change.
== END 2021-05-26 13:29 | disposition home or self-care (01) ==
LOC: HO.XRAY 13:28
PROVIDERS: PCP Internal Medicine; Visit Provider Physician Assistant Medical
DX: M54.2 Cervicalgia (principal)
CPT/HCPCS: 72052

== ENCOUNTER 2021-07-13 13:19 | Emergency (ER) | payer OTHER, SELFPAY ==
--- NOTE | ~2021-07-13 | XR_ITS ---
EXAMINATION: XR LUMBOSACRAL SPINE CLINICAL INFORMATION: Fall with back pain COMPARISON: 10/24/2020 TECHNIQUE: Three views of the lumbosacral spine. FINDINGS: Right upper quadrant surgical clips. No fracture or subluxation. Vertebral body height and alignment maintained. Mild disc space narrowing at L2-L3 and L3-L4. Small multilevel endplate osteophytes throughout. Mild facet arthropathy. The sacroiliac joints are symmetric. The visualized sacrum is intact. XR/XR lumbar spine 2-3V IMPRESSION: No acute abnormality. Mild degenerative changes throughout the lumbar spine.
--- NOTE | ~2021-07-13 | CT_ITS ---
EXAMINATION: NONCONTRAST HEAD CT NONCONTRAST CERVICAL SPINE CT INDICATION INFORMATION: Fall with head injury COMPARISON: 08/30/2020 TECHNIQUE: Separate noncontrast CT examinations of the head and cervical spine were performed. Coronal and sagittal images were created for each examination at the technologist workstation. This CT examination was performed using dose optimization techniques as appropriate, variously including the following: *Automated exposure control *Adjustment of mA and/or kV according to patient size (this includes techniques or standardized protocols for targeted exams where dose is matched to indication/reason for exam; i.e. extremities or head) *Use of iterative reconstruction technique DLP: 1405 mGy-cm FINDINGS: Head: There is no evidence of acute intracranial hemorrhage or territorial infarction. No abnormal mass effect or midline shift is seen. [place] to white matter differentiation is well preserved. No extra-axial fluid collections are identified. No hydrocephalus. No significant volume loss. There is no abnormal attenuation within the brain parenchyma. No acute osseous or soft tissue abnormality. The mastoid air cells and visualized portions of the paranasal sinuses are well aerated. Cervical spine: Straightening of the normal cervical lordosis. There is otherwise anatomic alignment of the vertebral bodies and posterior elements. The atlantoaxial and atlantooccipital articulations are intact. Vertebral body heights are maintained. There is multilevel intervertebral disc space narrowing with endplate osteophyte formation and facet arthropathy. No evidence of acute fracture. No prevertebral soft tissue swelling. Visualized portions of the lung apices are unremarkable. The thyroid gland is unremarkable. CT/CT cervical spine wo con IMPRESSION: 1. No acute intracranial finding. 2. No fracture or malalignment of the cervical spine. Mild degenerative changes.
--- NOTE | ~2021-07-13 | XR_ITS ---
EXAMINATION: XR HIP, RIGHT CLINICAL INFORMATION: Fall with right hip pain COMPARISON: None TECHNIQUE: Two views of the right hip. Frontal view of the pelvis. FINDINGS: No fracture or dislocation. The hips are well aligned. Joint spaces are maintained. The pelvic rim is intact. The sacroiliac joints and pubic symphysis are intact. Radiopaque clips overlie the pelvis. Normal bowel gas pattern. XR/XR hip RT min 2V IMPRESSION: No fracture or malalignment.
--- NOTE | ~2021-07-13 | XR_ITS ---
EXAMINATION: XR ANKLE, LEFT CLINICAL INFORMATION: Fall with ankle pain COMPARISON: None TECHNIQUE: AP, lateral, and mortise views of the left ankle. FINDINGS: No fracture or dislocation. The ankle mortise is congruent. Mild degenerative changes along the ankle mortise with osteophytes noted. No ankle joint effusion. Lateral soft tissue swelling. XR/XR ankle LT 2V IMPRESSION: Lateral soft tissue swelling without acute osseous abnormality.
[2021-07-13 14:49] VITALS: BP 131/92; PULSE 74; RESP 18; TEMP 36.2; O2SAT 100; BMI 41.6
--- NOTE | 2021-07-13 15:51 | ED.FALL ---
HPI - Fall General Chief Complaint: Fall Stated Complaint: fall Time Seen by Provider: 07/13/21 15:49 Source: patient Mode of arrival: ambulatory Limitations: no limitations History of Present Illness HPI Narrative: 50-year-old female came in for evaluation of mechanical fall. fall happened 2 days ago, patient was walking in a dark place and had steps tear that she did not see forward hitting the left ankle, right hip, back pain, neck pain, head pain. Related Data Home Medications Medication Instructions Recorded Confirmed Ca gnbr-Y2-lvyamt-inos-silicon PO DAILY 01/28/21 05/29/21 [Bone Density Calcium + D] rhubarb root extract 4 mg tablet mg PO 02/12/21 05/29/21 (Estroven Complete Menopause Relief) calcium carbonate 500 mg calcium 500 mg PO DAILY 04/16/21 05/29/21 (1,250 mg) tablet (Calcium 500) polyethylene glycol 3350 17 g PO 04/16/21 05/29/21 gram/dose oral powder Previous Rx's Medication Instructions Recorded lidocaine 5 % topical patch 1 patch TOPICAL DAILY 30 Days #30 01/28/21 ea loratadine 10 mg tablet 10 mg PO DAILY 90 Days #90 tab 04/30/21 omeprazole 40 mg capsule,delayed 40 mg PO DAILY 90 Days #90 cap 04/30/21 release duloxetine 30 mg capsule,delayed 30 mg PO DAILY 90 Days #90 cap 05/29/21 release (Cymbalta) fluticasone propionate 50 1 spray INTRANASAL BID 30 Days #16 07/07/21 mcg/actuation nasal g spray,suspension (Flonase Allergy Relief) ibuprofen 600 mg tablet 600 mg PO TID PRN #20 tab 07/13/21 Allergies Allergy/AdvReac Type Severity Reaction Status Date / Time amoxicillin [AMOXICILLIN] Allergy Unknown HIVES Verified 05/29/21 09:28 codeine [Tylenol-Codeine] Allergy Unknown Vomiting Verified 05/29/21 09:28 compazine Allergy Unknown Seizure Verified 05/29/21 09:28 hydromorphone [From DILAUDID] Allergy Unknown VOMITING,DI Verified 05/29/21 09:28 ZZY meperidine [Demerol] Allergy Unknown Rash Verified 05/29/21 09:28 Review of Systems Review of Systems: all other systems are reviewed and are negative Constitutional: Reports as per HPI and Reports no additional constitutional complaints Eyes: Reports as per HPI and Reports no additional eye complaints Reports system reviewed and no additional complaints, except as documented Cardiovascular: Reports as per HPI and Reports no additional cardiovascular complaints Respiratory: Reports as per HPI and Reports no additional respiratory complaints Gastrointestinal: Reports as per HPI and Reports no additional gastrointestinal complaints Genitourinary: Reports no additional female genitourinary complaints Musculoskeletal: Reports no additional musculoskeletal complaints Skin/Breast: Reports system reviewed and no additional complaints, except as docu Psychiatric: Reports no additional psychiatric complaints Endocrine: Reports no additional endocrine complaints Hematologic/Lymphatic: Reports no additional hematologic/lymphatic complaints Allergic/Immunologic: Reports no additional allergic/immunologic complaints Reports system reviewed and no additional complaints, except as documented and Reports Abnormal speech present [facility] Past Medical History Medical History Anxiety disorder Arthritis Asthma delivery delivered Cholecystitis Chronic back pain Chronic GERD Depression Diverticulosis Fibromyalgia IBS (irritable bowel syndrome) Morbid obesity Neuropathy Osteoarthritis of left knee Tubular adenoma Surgical History H/O knee surgery H/O oophorectomy Hx of section Family History Family History Maternal Grandmother Ovarian ca Other Substance use disorder Social History Social History Housing: House Alcohol intake: current Alcohol intake frequency: a few times a month Alcohol type: beer Patient Tobacco Use Status: Former Tobacco user Quit Date: 2019 Tobacco use type: Cigarette Years Smoked: 15 years Advance Directives: No Advance Directives Information Provided: No Patient : No 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al status: unemployed Physical Exam Vital Signs: Vital Signs: Last Vital Signs Temp 97.1 F 07/13/21 14:49 Pulse 74 07/13/21 14:49 Resp 18 07/13/21 14:49 BP 131/92 H 07/13/21 14:49 Pulse Ox 100 07/13/21 14:49 Body Mass Index 41.6 vital signs have been reviewed as appeared to be correct. Blood pressure normal. Heart rate normal. Respiration rate normal. Temperature normal. Oxygen saturation normal. Appearance: Alert. Oriented X3. No acute distress. pain. GCS of 15 Head: Normal external exam. Normocephalic. Atraumatic. No Campbell signs noted. No raccoon eyes noted Eyes: PERRLA. EOMI. Conjunctiva and sclera normal. Eyelids normal. ENT: TM's Normal. Pharynx normal. Uvula midline. Moist mucous membranes. No trismus noted. No drooling noted. No muffled voice noted. Neck: Normal inspection. Neck supple. FROM. No adenopathy. Thyroid Normal. No meningeal signs. No neck mass noted. No midline step-off or deformity. CVS: Normal heart rate and rhythm. Heart sound normal. No murmurs noted. Pulses normal throughout. Respiratory: No respiratory distress. Painless inspiration. Breath sounds normal. No wheezes/rales/rhonchi noted. Chest nontender. No accessory muscle usage noted or decreased air movement noted. Abdomen: Soft and nontender. Bowel sounds normal in all 4 quadrants. No distention noted. No organomegaly noted. No visible injury noted. Back: No CVA tenderness. Full range of motion noted. Midline tenderness, no step-off, no deformity. Skin: Skin warm and dry. Normal skin color. Normal skin turgor. No rashes/lesions/lacerations noted. Extremities: left ankle swelling, ecchymosis, tenderness of the lateral malleolus, we are limited range of motion due to pain, also complaining of right hip tenderness, no deformity, no step-off, full range of motion with pain. Neuro: Oriented X 3. Cranial nerve exam: II-XII are grossly intact No motor deficit. No sensory deficit. Reflexes normal. Course Course Course Narrative: Status post mechanical fall with contusions. No apparent fractures or injuries and negative radiographic study, will reassure use NSAIDs if needed for pain. MDM - Fall Medical Records Attestation: I reviewed the patient's medical records. Lab Data Attestation: I reviewed the patient's lab results. Imaging Data Head/cervical spine CT: Radiologist's impression: 1. No acute intracranial finding. 2. No fracture or malalignment of the cervical spine. Mild degenerative changes. Right hip x-ray: Radiologist's impression: No fracture or malalignment. Lumbar spine x-ray.: Radiologist's impression: No acute abnormality. Mild degenerative change throughout the lumbar spine. Left ankle x-ray: Radiologist's impression: Lateral soft tissue swelling without acute osseous abnormality. Discharge Plan Discharge Clinical Impression: Closed head injury, Cervical sprain, Contusion of left ankle Patient Disposition: Home, Self-Care Instructions: Head Injury (ED), Contusion in Adults (ED) Prescriptions: New ibuprofen 600 mg tablet 600 mg PO TID PRN (Reason: pain) Qty: 20 RF: 0 No Action omeprazole 40 mg capsule,delayed release(DR/EC) 40 mg PO DAILY 90 Days Qty: 90 RF: 0 loratadine 10 mg tablet 10 mg PO DAILY 90 Days Qty: 90 RF: 0 fluticasone propionate [Flonase Allergy Relief] 50 mcg/actuation spray,suspension 1 spray intranasal BID 30 Days Qty: 16 RF: 0 Ca czid-K3-vgmrnv-inos-silicon PO DAILY RF: 0 lidocaine 5 % adhesive patch,medicated 1 patch topical DAILY 30 Days Qty: 30 RF: 0 duloxetine [Cymbalta] 30 mg capsule,delayed release(DR/EC) 30 mg PO DAILY 90 Days Qty: 90 RF: 1 polyethylene glycol 3350 17 gram/dose powder PO RF: 0 calcium carbonate [Calcium 500] 500 mg calcium (1,250 mg) tablet 500 mg PO DAILY RF: 0 Estroven Cmplt Menopause Rlf 4 mg tablet PO RF: 0 Referrals: Juliet oTrres MD [Primary Care Provider] - 2 days Stand Alone Forms: Work/School Release
== END 2021-07-13 17:21 | disposition home or self-care (01) ==
PROVIDERS: Emergency Provider Emergency Medicine; PCP Internal Medicine
DX: S13.4XXA Sprain of ligaments of cervical spine, initial encounter (principal); S90.02XA Contusion of left ankle, initial encounter; S09.90XA Unspecified injury of head, initial encounter; J45.909 Unspecified asthma, uncomplicated; W19.XXXA Unspecified fall, initial encounter; Y93.9 Activity, unspecified; Y92.9 Unspecified place or not applicable; Y99.9 Unspecified external cause status
CPT/HCPCS: 70450; 72100; 72125; 73502; 73600; 99283; 99284

== ENCOUNTER → 2021-07-28 09:31 | Outpatient (BNVA) | payer OTHER, SELFPAY | PROVIDERS: PCP Internal Medicine; Referring Provider Internal Medicine; Visit Provider Nurse Practitioner Family | DX: D12.6 Benign neoplasm of colon, unspecified (principal); K57.90 Diverticulosis of intestine, part unspecified, without perforation or abscess without bleeding; K58.1 Irritable bowel syndrome with constipation; K21.9 Gastro-esophageal reflux disease without esophagitis; E66.01 Morbid (severe) obesity due to excess calories; M79.7 Fibromyalgia; Z68.41 Body mass index [BMI] 40.0-44.9, adult; Z87.891 Personal history of nicotine dependence; Z88.6 Allergy status to analgesic agent; Z88.1 Allergy status to other antibiotic agents; Z88.0 Allergy status to penicillin; Z88.8 Allergy status to other drugs, medicaments and biological substances; Z79.899 Other long term (current) drug therapy | CPT/HCPCS: 99212 ==

== ENCOUNTER 2021-09-13 11:25 | Emergency (ER) | payer OTHER, SELFPAY ==
[2021-09-13 12:16] VITALS: BP 130/80; PULSE 87; RESP 20; TEMP 36.5; O2SAT 100; BMI 40.1
[2021-09-13 12:54] LABS: Appearance Urine CLEAR; Color Urine YELLOW; Glucose Urine UA NEG (NEG); Leukocyte Esterase Urine NEG (NEG); Nitrite Urine NEG (NEG); UACC Culture Trigger NO; Urine Blood TRACE (NEG); Urine Ketones NEG (NEG); Urine Protein NEG (NEG-TRACE)
[2021-09-13 13:09] LABS: WBC Urine 0 /HPF (0-4)
[2021-09-13 13:10] LABS: Bacteria Urine TRACE /LPF; Mucus Urine 2+ /LPF; Squamous Epithelial Cell Urine 2+ /LPF
--- NOTE | 2021-09-13 13:56 | ED_ITS ---
HPI - Female Genitourinary General Chief complaint: Urogenital-Female Stated complaint: ?uti Time Seen by Provider: 09/13/21 13:56 Related Data Home Medications Medication Instructions Recorded Confirmed Ca deof-L5-mwrmak-inos-silicon PO DAILY 01/28/21 07/21/21 [Bone Density Calcium + D] rhubarb root extract 4 mg tablet mg PO 02/12/21 07/21/21 (Estroven Complete Menopause Relief) polyethylene glycol 3350 17 g PO 04/16/21 07/21/21 gram/dose oral powder Previous Rx's Medication Instructions Recorded lidocaine 5 % topical patch 1 patch TOPICAL DAILY 30 Days #30 01/28/21 ea duloxetine 30 mg capsule,delayed 30 mg PO DAILY 90 Days #90 cap 05/29/21 release (Cymbalta) meloxicam 15 mg tablet 15 mg PO DAILY #14 tab 07/17/21 loratadine 10 mg tablet 10 mg PO DAILY 90 Days #90 tab 07/30/21 fluticasone propionate 50 1 spray INTRANASAL BID 30 Days #16 08/05/21 mcg/actuation nasal g spray,suspension (Flonase Allergy Relief) omeprazole 40 mg capsule,delayed 40 mg PO DAILY 90 Days #90 cap 08/05/21 release nitrofurantoin 100 mg PO Q12H 3 Days #6 cap 09/14/21 monohydrate/macrocrystals 100 mg capsule (Macrobid) Allergies Allergy/AdvReac Type Severity Reaction Status Date / Time amoxicillin [AMOXICILLIN] Allergy Unknown HIVES Verified 07/28/21 09:34 codeine [Tylenol-Codeine] Allergy Unknown Vomiting Verified 07/28/21 09:34 compazine Allergy Unknown Seizure Verified 07/28/21 09:34 hydromorphone [From DILAUDID] Allergy Unknown VOMITING,DI Verified 07/28/21 09:34 ZZY meperidine [Demerol] Allergy Unknown Rash Verified 07/28/21 09:34 PMFSH Past Medical History Medical History Anxiety disorder Arthritis Asthma delivery delivered Cholecystitis Chronic back pain Chronic GERD Depression Diverticulosis Fibromyalgia IBS (irritable bowel syndrome) Morbid obesity Neuropathy Osteoarthritis of left knee Tubular adenoma Surgical History H/O knee surgery H/O oophorectomy Hx of section Family History Family History Maternal Grandmother Ovarian ca Other Substance use disorder Social History Social History Housing: House Alcohol intake: current Alcohol intake frequency: a few times a month Alcohol type: beer Patient Tobacco Use Status: Former Tobacco user Quit Date: 2019 Tobacco use type: Cigarette Years Smoked: 15 years 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al status: unemployed Physical Exam Vital Signs: Vital Signs: Last Vital Signs Temp 97.7 F 09/13/21 12:16 Pulse 87 09/13/21 12:16 Resp 20 09/13/21 12:16 BP 130/80 09/13/21 12:16 Pulse Ox 100 09/13/21 12:16 BMI result Body Mass Index 40.1 MDM - Female Genitourinary Lab Data Labs: Lab Results 09/13/21 Range/Units 12:45 Urine Color YELLOW Urine Appearance CLEAR Urine pH 6.0 (5.0-8.0) Ur Specific [place] 1.010 (1.005-1.025) Urine Protein NEG (NEG-TRACE) MG/DL Urine Glucose (UA) NEG (NEG) MG/DL Urine Ketones NEG (NEG) MG/DL Urine Blood TRACE (NEG) Urine Nitrite NEG (NEG) Ur Leukocyte Esterase NEG (NEG) Urine RBC 1-4 (0) /HPF Urine WBC 0 (0-4) /HPF Ur Squamous Epith Cells 2+ /LPF Urine Bacteria TRACE /LPF Urine Mucus 2+ /LPF Discharge Plan Discharge Patient Disposition: Left Without Being Seen Interventions: LWBS Worksheet Last Done: 09/13/21 17:21 Discharge Date/Time: 09/13/21 17:22
== END 2021-09-13 17:22 | disposition left against medical advice (07) ==
PROVIDERS: Emergency Provider Emergency Medicine; PCP Internal Medicine
DX: R68.89 Other general symptoms and signs (principal)
CPT/HCPCS: 81001; 99282; 99283

== ENCOUNTER 2021-10-14 14:45 | Emergency (ER) | payer OTHER, SELFPAY ==
--- NOTE | ~2021-10-14 | XR_ITS ---
EXAMINATION: XR RIBS, RIGHT CLINICAL INFORMATION: Fall COMPARISON: Previous chest x-ray August 2020 TECHNIQUE: 3 views of the right ribs and one view of the chest were obtained. FINDINGS: Lungs are clear. No consolidation, pneumothorax, or pleural effusion. The cardiomediastinal silhouette and pulmonary vasculature are normal. There is a right anterior 10th rib fracture. XR/XR ribs RT min 3V w CXR1V IMPRESSION: No evidence for acute disease in the chest. Right anterior 10th rib fracture.
--- NOTE | ~2021-10-14 | CT_ITS ---
EXAMINATION: CT HEAD WITHOUT CONTRAST CT CERVICAL SPINE WITHOUT CONTRAST CLINICAL INFORMATION: Fall, injury and pain. COMPARISON: CT head and cervical spine dated from 07/13/2021. TECHNIQUE: Contiguous axial imaging was performed from the skull base to vertex without intravenous administration of contrast. Contiguous axial imaging was performed from the upper chest through the skull base without intravenous administration of contrast. Coronal and sagittal reformats were obtained at the acquisition workstation. This CT examination was performed using dose optimization techniques as appropriate, variously including the following: *Automated exposure control *Adjustment of mA and/or kV according to patient size (this includes techniques or standardized protocols for targeted exams where dose is matched to indication/reason for exam; i.e. extremities or head) *Use of iterative reconstruction technique DLP: 753 mGy-cm FINDINGS: Head: There is no evidence of acute intracranial hemorrhage or edematous territorial infarction. There is no abnormal attenuation within the brain parenchyma. Sorensen-white matter differentiation is preserved. The ventricles are normal in size and configuration. No evidence for obstructive hydrocephalus. No abnormal mass effect or midline shift. No extra-axial fluid collections. No acute soft tissue or osseous abnormalities. Mild degenerative changes of the left greater than right temporomandibular joints. The mastoid air cells and paranasal sinuses are clear. Cervical Spine: The atlantooccipital and atlantoaxial articulations remain well aligned. Straightening of the normal cervical lordosis. Otherwise, there is anatomic alignment of the vertebral bodies and posterior elements. No evidence of acute fracture or subluxation. There is mild multilevel cervical spondylosis with more pronounced facet arthropathy on the right at the level of C2-C3. There is no prevertebral soft tissue swelling. The thyroid gland and remaining cervical soft tissues are normal in appearance. The lung apices demonstrate no abnormalities. CT/CT cervical spine wo con IMPRESSION: No acute intracranial pathology. No acute cervical spinal fractures or malalignment.
--- NOTE | ~2021-10-14 | XR_ITS ---
EXAMINATION: XR LUMBOSACRAL SPINE CLINICAL INFORMATION: Fall COMPARISON: Previous x-ray most recent July 2021 TECHNIQUE: Three views of the lumbosacral spine. FINDINGS: There is curvature of the lumbar sacral spine to the left. Bone alignment is otherwise normal. No fracture or dislocation is seen. There is mild degenerative spondylosis at L2-L3 L3-L4 and L4-L5. There is mild degenerative disc disease at L4-L3-L4. There is mild facet arthritis of the lower lumbar spine. XR/XR lumbar spine 2-3V IMPRESSION: No fracture seen. Mild degenerative changes.
[2021-10-14 14:58] VITALS: BP 123/71; PULSE 70; RESP 16; TEMP 36.8; O2SAT 100; BMI 40.3
--- NOTE | 2021-10-14 15:50 | ED_ITS ---
HPI - Fall General Chief Complaint: Back Pain/Injury Stated Complaint: Fall/back pain Time Seen by Provider: 10/14/21 15:34 Source: patient Mode of arrival: ambulatory Limitations: no limitations History of Present Illness HPI Narrative: 51-year-old female with a past medical history of chronic back pain, bulging cervical intervertebral disc disorder, anxiety, fibromyalgia, arthritis, and IBS who is presenting to the ED with complaints of lower back pain and right-sided anterior/lateral ribcage pain after she had a mechanical fall yesterday where she slipped and fell on ice landing on her back and since then she has been having pain to her lower back and right anterior/lateral ribcage. Patient reports that she might have hit her head although she is completely unsure. Although she definitely denies losing consciousness. She denies being on any blood thinners. She reports that she does have some minor neck pain. Otherwise denies any other symptoms complaints or concerns at this time. complaint: fall Onset (ago): day(s) (Yesterday) Fall from: standing Fall witnessed: no Place fall occurred: street Loss of consciousness: none Prolonged down time: no Symptoms prior to fall: other (Rib cage pain and lower back pain) Context: tripped/slipped Location of injury: head, neck, chest (Right-sided ribs) and back Severity: moderate Quality: aching Associated symptoms (after fall): headache, neck pain, chest pain (Rib cage pain no chest pain) and other (Lower back pain) Related Data Home Medications Medication Instructions Recorded Confirmed Ca [id number]-matynn-inos-silicon PO DAILY 01/28/21 07/21/21 [Bone Density Calcium + D] rhubarb root extract 4 mg tablet mg PO 02/12/21 07/21/21 (Estroven Complete Menopause Relief) polyethylene glycol 3350 17 g PO 04/16/21 07/21/21 gram/dose oral powder Previous Rx's Medication Instructions Recorded lidocaine 5 % topical patch 1 patch TOPICAL DAILY 30 Days #30 01/28/21 ea duloxetine 30 mg capsule,delayed 30 mg PO DAILY 90 Days #90 cap 05/29/21 release (Cymbalta) meloxicam 15 mg tablet 15 mg PO DAILY #14 tab 07/17/21 loratadine 10 mg tablet 10 mg PO DAILY 90 Days #90 tab 11/18/21 fluticasone propionate 50 1 spray INTRANASAL BID 30 Days #16 08/05/21 mcg/actuation nasal g spray,suspension (Flonase Allergy Relief) omeprazole 40 mg capsule,delayed 40 mg PO DAILY 90 Days #90 cap 08/05/21 release nitrofurantoin 100 mg PO Q12H 3 Days #6 cap 09/14/21 monohydrate/macrocrystals 100 mg capsule (Macrobid) cyclobenzaprine 10 mg tablet 10 mg PO Q8H PRN #14 tab 10/14/21 naproxen 500 mg tablet 500 mg PO BID PRN #14 tab 10/14/21 oxycodone 5 mg tablet 5 mg PO Q6H PRN #14 tab 10/14/21 Allergies Allergy/AdvReac Type Severity Reaction Status Date / Time amoxicillin Allergy Unknown HIVES Verified 07/28/21 09:34 [AMOXICILLIN] codeine Allergy Unknown Vomiting Verified 07/28/21 09:34 [Tylenol-Codeine] compazine Allergy Unknown Seizure Verified 07/28/21 09:34 hydromorphone [From Allergy Unknown VOMITING,DI Verified 07/28/21 09:34 DILAUDID] ZZY meperidine [Demerol] Allergy Unknown Rash Verified 07/28/21 09:34 Review of Systems Verdana 4l Review of Systems: Verdana 4d Verdana 4d Constitutional : No Fever, No Chills ENT/Mouth : No Ear Pain, No Hoarseness, No sore throat Eyes: No Eye Pain, No Swelling, No Redness, No Foreign Body Cardiovascular : No Chest Pain, No SOB Respiratory : No Cough, No Dyspnea GastrointestinalGastrointestinal : No Nausea, No Vomiting, No Diarrhea, No abdominal Pain Genitourinary : No Dysuria, No Hematuria Musculoskeletal : Positive anterior/lateral right-sided ribcage pain, positive right lower back pain, positive neck pain, No joint pain, No Myalgias, No Joint Swelling Skin : No Skin lacerations, No rash Neuro : Positive head injury, positive intermittent headaches, No Weakness, No Numbness, No Paresthesias, No Loss of Consciousness, No Dizziness Psych : No Anxiety/Panic, No Depression Heme/Lymph: no easy bruising, no Lymphadenopathy Endocrine : No Polyuria, No Polydipsia Yes all other systems are reviewed and are negative [facility] Past Medical History Attestation statement: The following information was validated with the patient. Medical History Anxiety disorder Arthritis Asthma delivery delivered Cholecystitis Chronic back pain Chronic GERD Depression Diverticulosis Fibromyalgia IBS (irritable bowel syndrome) Morbid obesity Neuropathy Osteoarthritis of left knee Tubular adenoma Surgical History H/O knee surgery H/O oophorectomy Hx of section Family History Family History Maternal Grandmother Ovarian ca Other Substance use disorder Social History Social History Housing: House Alcohol intake: current Alcohol intake frequency: a few times a month Alcohol type: beer Patient Tobacco Use Status: Former Tobacco user Quit Date: 2019 Tobacco use type: Cigarette Years Smoked: 15 years Advance Directives: No Advance Directives Information Provided: No Patient : No 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al status: unemployed Physical Exam Verdana 4l Vital Signs: Verdana 4d Verdana 4d Vital Signs: Verdana 4d Verdana 4Bd Last Vital Signs Verdana 4d Ship Cleaner New 4d Ship Cleaner New 4d Temp 98.3 F 10/14/21 14:58 Ship Cleaner New 4d Pulse 70 10/14/21 14:58 Ship Cleaner New 4d Resp 16 10/14/21 14:58 BP 123/71 10/14/21 14:58 Pulse Ox 100 10/14/21 14:58 BMI result Body Mass Index 40.3 vital signs have been reviewed as normal and appeared to be correct. Blood pressure normal. Heart rate normal. Respiration rate normal. Temperature normal. Oxygen saturation normal. Appearance: Alert. Oriented X3. No acute distress. Head: Normal external exam. Normocephalic. Atraumatic. No Campbell signs noted. No raccoon eyes noted Eyes: PERRLA. EOMI. Conjunctiva and sclera normal. Eyelids normal. ENT: EAC normal. TM's Normal. No septal hematoma noted. No hemotympanum noted. Pharynx normal. Uvula midline. Moist mucous membranes. No trismus noted. No drooling noted. No muffled voice noted. Neck: Normal inspection. Neck supple. FROM. No adenopathy. Thyroid Normal. No meningeal signs. No neck mass noted. Patient mild tenderness palpation to bilateral paracervical musculature. No mid cervical tenderness step-offs or deformities noted. No step-offs or deformities noted. Patient neuro intact bilateral and distally on all 4 extremities. Reflexes intact bilaterally and distally and all 4 extremities. No obvious signs of trauma/ecchymosis/abrasions/lacerations or signs infection noted. No rashes noted. CVS: Normal heart rate and rhythm. Heart sound normal. No murmurs noted. Pulses normal throughout. Respiratory: No respiratory distress. Painless inspiration. Breath sounds normal. No wheezes/rales/rhonchi noted. Right lateral anterior lower ribcage pain. Not consistent with flail chest. No ecchymosis/abrasions/lacerations or signs of infection or obvious signs of trauma. Not consistent with flail chest. No crepitus is noted. No accessory muscle usage noted or decreased air movement noted. Abdomen: Soft and nontender. Bowel sounds normal in all 4 quadrants. No distention noted. No organomegaly noted. No visible injury noted. Back: No CVA tenderness. Full range of motion noted. No obvious deformities, or edema. Mild para-spinal muscular tenderness from lumbar region to coccyx. Full ROM in back and lower extremities. 5/5 strength hip extension/flexion, abduction, adduction. Mild Lumbar pain with hip flexion against resistance. Straight leg raise test negative on right; Straight leg raise test negative on left; Reflexes normal ankle and knee bilaterally; EHL motor strength normal bilaterally. No rashes/lesion/induration/fluctuance or signs infection noted. No signs of trauma. Skin: Skin warm and dry. Normal skin color. Normal skin turgor. No rashes/lesions/lacerations noted. Extremities: Extremities exhibit normal range of motion. Extremities nontender. Neuro: Oriented X 3. No motor deficit. No sensory deficit. Reflexes normal. Patient has a normal steady gait. Course Course Course Narrative: 16pm - 51-year-old female with a past medical history of chronic back pain, bulging cervical intervertebral disc disorder, anxiety, fibromyalgia, arthritis, and IBS who is presenting to the ED with complaints of lower back pain and right-sided anterior/lateral ribcage pain after she had a mechanical fall yesterday where she slipped and fell on ice landing on her back and since then she has been having pain to her lower back and right anterior/lateral ribcage. Patient reports that she might have hit her head although she is completely unsure. Although she definitely denies losing consciousness. She denies being on any blood thinners. She reports that she does have some minor neck pain. Otherwise denies any other symptoms complaints or concerns at this time. X-ray of lumbar spine revealed chronic changes no acute processes noted. X-ray of right ribcage revealed a right anterior 10th rib fracture otherwise no other acute processes. Reevaluation(s) Reevaluation #1: - CT scan of brain/cervical spine within normal limits no acute processes will DC home with symptomatic treatment instructions return if any new or worsening symptoms. Patient understands agrees with this plan. Time: 17:14 [facility] - Fall Medical Records Attestation: I reviewed the patient's medical records. Imaging Data CT scan of brain/cervical spine without contrast: Attestation: I personally reviewed and interpreted this imaging study as follows: Radiologist's impression: FINDINGS: Head: There is no evidence of acute intracranial hemorrhage or edematous territorial infarction. There is no abnormal attenuation within the brain parenchyma. Sorensen-white matter differentiation is preserved. The ventricles are normal in size and configuration. No evidence for obstructive hydrocephalus. No abnormal mass effect or midline shift. No extra-axial fluid collections. No acute soft tissue or osseous abnormalities. Mild degenerative changes of the left greater than right temporomandibular joints. The mastoid air cells and paranasal sinuses are clear. Cervical Spine: The atlantooccipital and atlantoaxial articulations remain well aligned. Straightening of the normal cervical lordosis. Otherwise, there is anatomic alignment of the vertebral bodies and posterior elements. No evidence of acute fracture or subluxation. There is mild multilevel cervical spondylosis with more pronounced facet arthropathy on the right at the level of C2-C3. There is no prevertebral soft tissue swelling. The thyroid gland and remaining cervical soft tissues are normal in appearance. The lung apices demonstrate no abnormalities. CT/CT cervical spine wo con IMPRESSION: No acute intracranial pathology. No acute cervical spinal fractures or malalignment. ? Right ribcage and lumbar spine x-rays: Attestation: I personally reviewed and interpreted this imaging study as follows: Radiologist's impression: FINDINGS: Lungs are clear. No consolidation, pneumothorax, or pleural effusion. The cardiomediastinal silhouette and pulmonary vasculature are normal. There is a right anterior 10th rib fracture. XR/XR ribs RT min 3V w CXR1V IMPRESSION: No evidence for acute disease in the chest. Right anterior 10th rib fracture. FINDINGS: There is curvature of the lumbar sacral spine to the left. Bone alignment is otherwise normal. No fracture or dislocation is seen. There is mild degenerative spondylosis at L2-L3 L3-L4 and L4-L5. There is mild degenerative disc disease at L4-L3-L4. There is mild facet arthritis of the lower lumbar spine. XR/XR lumbar spine 2-3V IMPRESSION: No fracture seen. Mild degenerative changes. Discharge Plan Discharge Clinical Impression: Fall, Lumbar spine strain, Fracture of rib, Head injury, Neck muscle strain Patient Disposition: Home, Self-Care Instructions: Rib Fracture (ED), Low Back Strain (ED) Prescriptions: New naproxen 500 mg tablet 500 mg PO BID PRN (Reason: pain) Qty: 14 0RF cyclobenzaprine 10 mg tablet 10 mg PO Q8H PRN (Reason: Muscle spasm) Qty: 14 0RF oxycodone 5 mg tablet 5 mg PO Q6H PRN (Reason: pain) Qty: 14 0RF Rx Instructions: Can be partially filled upon patient request No Action loratadine 10 mg tablet 10 mg PO DAILY 90 Days Qty: 90 0RF omeprazole 40 mg capsule,delayed release(DR/EC) 40 mg PO DAILY 90 Days Qty: 90 0RF fluticasone propionate [Flonase Allergy Relief] 50 mcg/actuation spray,suspension 1 spray intranasal BID 30 Days Qty: 16 2RF Rx Instructions: administer into each nostril nitrofurantoin monohyd/m-cryst [Macrobid] 100 mg capsule 100 mg PO Q12H 3 Days Qty: 6 0RF Rx Instructions: must administer with a meal/food Ca [id number]-wtders-inos-silicon PO DAILY 0RF lidocaine 5 % adhesive patch,medicated 1 patch topical DAILY 30 Days Qty: 30 0RF Rx Instructions: leave on most painful area for up to 12 hrs duloxetine [Cymbalta] 30 mg capsule,delayed release(DR/EC) 30 mg PO DAILY 90 Days Qty: 90 1RF polyethylene glycol 3350 17 gram/dose powder PO 0RF meloxicam 15 mg tablet 15 mg PO DAILY Qty: 14 0RF Estroven Cmplt Menopause Rlf 4 mg tablet PO 0RF Referrals: Juliet Torres MD [Primary Care Provider] - 2 days Stand Alone Forms: Work/School Release Print Language: Icelandic
[2021-10-14 17:15] VITALS: BP 140/67; PULSE 65; RESP 16; O2SAT 99
== END 2021-10-14 17:47 | disposition home or self-care (01) ==
PROVIDERS: Emergency Provider Emergency Medicine Emergency Medical Services; PCP Internal Medicine
DX: S22.32XA Fracture of one rib, left side, initial encounter for closed fracture (principal); S39.012A Strain of muscle, fascia and tendon of lower back, initial encounter; S16.1XXA Strain of muscle, fascia and tendon at neck level, initial encounter; M54.2 Cervicalgia; R07.81 Pleurodynia; W00.0XXA Fall on same level due to ice and snow, initial encounter; Y93.9 Activity, unspecified; Y92.9 Unspecified place or not applicable; Y99.9 Unspecified external cause status; Z79.899 Other long term (current) drug therapy
CPT/HCPCS: 70450; 71101; 72100; 72125; 99284

== ENCOUNTER 2021-11-24 10:28 | Outpatient (REF) | payer OTHER, SELFPAY ==
--- NOTE | ~2021-11-24 | XR_ITS ---
EXAMINATION: XR RIBS, RIGHT CLINICAL INFORMATION: Fracture COMPARISON: None TECHNIQUE: 3 views of the right ribs were obtained. Chest one view FINDINGS: Lungs are clear. No consolidation, pneumothorax, or pleural effusion. The cardiomediastinal silhouette and pulmonary vasculature are normal. Osseous structures are unremarkable. Ribs are intact. No fractures are identified. XR/XR ribs RT min 3V w CXR1V IMPRESSION: Unremarkable chest and right rib exam.
== END 2021-11-24 10:29 | disposition home or self-care (01) ==
LOC: HO.HMGCX 10:28
PROVIDERS: PCP Internal Medicine; Visit Provider Internal Medicine
DX: S22.31XA Fracture of one rib, right side, initial encounter for closed fracture (principal)
CPT/HCPCS: 71101

== ENCOUNTER 2021-11-27 12:58 | Outpatient (REF) | payer OTHER, SELFPAY ==
[2021-11-27 13:35] LABS: Binax Internal Control QC Valid; Binax Now Covid-19 Ag Negative (Negative); Binax Performed by: HO.BONILM
== END 2021-11-27 12:59 | disposition home or self-care (01) ==
LOC: HO.HMGCLDS 12:58
PROVIDERS: Visit Provider Physician Assistant Medical
DX: Z13.89 Encounter for screening for other disorder (principal)

== ENCOUNTER 2021-12-23 10:22 | Outpatient (REF) | payer OTHER, SELFPAY ==
[2021-12-23 12:14] LABS: Erythrocyte Sedimentation Rate 10 MM/HR (0-20)
[2021-12-23 12:36] LABS: Anion Gap 13 (12-20); Blood Urea Nitrogen 16 mg/dL (9-16); Calcium 10.4 mg/dL (8.4-10.2); Carbon Dioxide 25 mmol/L (22-29); Chloride 104 mmol/L (96-108); Estimated Glomerular Filt Rate > 60; Glucose Random 88 mg/dL (60-115); Potassium 4.8 mmol/L (3.3-5.1); Sodium 137 mmol/L (135-145)
[2021-12-23 13:01] LABS: Thyroid Stimulating Hormone 1.22 uIU/mL (0.32-4.0)
== END 2021-12-23 10:23 | disposition home or self-care (01) ==
LOC: HO.LAB 10:22
PROVIDERS: PCP Internal Medicine; Visit Provider Psychiatry & Neurology Neurology
DX: M79.7 Fibromyalgia (principal)
CPT/HCPCS: 36415; 80048; 82550; 84443; 85652

== ENCOUNTER 2022-01-01 13:18 | Outpatient (REF) | payer OTHER, SELFPAY ==
[2022-01-01 13:54] LABS: COVID-19 Test Positive (Negative)
== END 2022-01-01 13:19 | disposition home or self-care (01) ==
LOC: HO.LAB 13:18
PROVIDERS: Visit Provider Internal Medicine
DX: Z20.822 Contact with and (suspected) exposure to COVID-19 (principal)
CPT/HCPCS: 87635; C9803

== ENCOUNTER 2022-01-12 10:18 | Outpatient (REF) | payer OTHER, SELFPAY ==
[2022-01-12 11:52] LABS: Calcium 9.9 mg/dL (8.4-10.2)
== END 2022-01-12 10:19 | disposition home or self-care (01) ==
LOC: HO.HMGCLDS 10:18
PROVIDERS: PCP Internal Medicine; Visit Provider Internal Medicine
DX: E83.52 Hypercalcemia (principal)
CPT/HCPCS: 36415; 82310

== ENCOUNTER 2022-02-12 10:27 | Outpatient (REF) | payer OTHER, SELFPAY ==
--- NOTE | ~2022-02-12 | MM_ITS ---
EXAMINATION: BONE DENSITOMETRY CLINICAL INDICATION: Fracture of rib. COMPARISON: None (current study represents initial baseline exam). TECHNIQUE: Using a [employer] DXA System (software version: 13.1) manufactured by [employer], dual-energy x-ray absorptiometry was performed of the lumbar spine and left hip. The images are of good technical quality. Summary results are attached. FINDINGS: AP SPINE L1-L2 (excluding L3 and L4): The data of L1-L4 has been changed to exclude the L3 and L4 vertebral bodies, because degenerative changes at these levels may cause overestimation of lumbar spine density. BMD 1.011 g/cm2, Z-score -1.9, T-score -1.3, osteopenia. LEFT FEMUR, NECK: BMD 0.952 g/cm2, Z-score -0.5, T-score -0.6, normal. LEFT FEMUR, TOTAL: BMD 1.020 g/cm2, Z-score -0.2, T-score 0.1, normal. IDENTIFIED RISK FACTORS: Menopause, history of fracture (adult), left oophorectomy, recurrent falls. HISTORY OF FRACTURE: Ankle, rib. MEDICATIONS: Multivitamin, vitamin D. MM/XR DEXA axial skeleton IMPRESSION: 1. DIAGNOSIS: Osteopenia based on the lowest T-score value of -1.3 in the lumbar spine applying World Health Organization criteria. 2. 10-YEAR FRACTURE RISK PREDICTION, FRAX: Major osteoporotic fracture (clinical spine, forearm, hip or shoulder) 6.8%. Hip fracture 0.2%. 3. Treatment Recommendations: NOF guidelines recommend consideration for treatment in postmenopausal women and men age 50 and older presenting with the following: -A hip or vertebral (clinical or morphometric) fracture. -T-score less than or equal to -2.5 at the femoral neck or spine after appropriate evaluation to exclude secondary causes. -Low bone mass at the hip or spine and a 10-year fracture probability by FRAX of greater than or equal to 3% for hip fracture or greater than or equal to 20% for major osteoporotic fracture based on the [place] adapted WHO algorithm. 4. Other Recommendations: All treatment decisions require clinical judgment and consideration of individual patient factors, including patient preferences, comorbidities, previous drug use, risk factors not captured in the FRAX model (e.g. frailty, falls, vitamin D deficiency, increased bone turnover, interval significant decline in bone density) and possible under or overestimation of fracture risk by FRAX. Additional medical evaluation for secondary cause of low bone mineral density may be appropriate. FUTURE SCAN RECOMMENDATION: People with diagnosed cases of osteoporosis or at high risk for fracture should have regular bone mineral density tests. For patients eligible for Medicare, routine testing is allowed once every 2 years. The testing frequency can be increased to one year for patients who have rapidly progressing disease, those who are receiving or discontinuing medical therapy to restore bone mass, or have additional risk factors.
== END 2022-02-12 10:28 | disposition home or self-care (01) ==
LOC: HO.MAMMO 10:27
PROVIDERS: PCP Internal Medicine; Visit Provider Internal Medicine
DX: Z13.820 Encounter for screening for osteoporosis (principal); S82.891A Other fracture of right lower leg, initial encounter for closed fracture; S22.31XA Fracture of one rib, right side, initial encounter for closed fracture; Z78.0 Asymptomatic menopausal state
CPT/HCPCS: 77080

== ENCOUNTER 2022-02-22 09:51 | Outpatient (REF) | payer OTHER, SELFPAY ==
--- NOTE | ~2022-02-22 | MM_ITS ---
EXAMINATION: MM SCREENING DIGITAL BREAST TOMOSYNTHESIS, BILATERAL CLINICAL INFORMATION: Screening. Asymptomatic. The lifetime risk of breast cancer based on the Tyrer-Cuzick Model is 8%. COMPARISON: Mammography: 02/19/2021, 06/06/2017 TECHNIQUE: Digital breast tomosynthesis is performed in both the craniocaudal and mediolateral oblique views along with computer-aided detection (CAD). Synthesized 2D images are generated from the tomosynthesis. Additional right cleavage and bilateral MLO views are provided. FINDINGS: There are scattered areas of fibroglandular density (ACR BI-RADS breast composition Category b). Breast tissue composition borders on predominantly fatty. Background stromal and fibroglandular densities and small nodularity are stable. There is no significant mass or architectural abnormality or developing density. No abnormal calcifications. The axilla and skin contours are unremarkable. MM/MM tomosynthesis screening BI IMPRESSION: No mammographic evidence of malignancy. ASSESSMENT: BI-RADS 2: Benign RECOMMENDATION: Routine annual mammography screening. This patient's information was entered into a reminder system with a target due date for their next mammogram.
== END 2022-02-22 09:52 | disposition home or self-care (01) ==
LOC: HO.MAMMO 09:51
PROVIDERS: PCP Internal Medicine; Visit Provider Internal Medicine
DX: Z12.31 Encounter for screening mammogram for malignant neoplasm of breast (principal)
CPT/HCPCS: 77063; 77067

== ENCOUNTER 2022-06-28 13:21 | Outpatient (REF) | payer OTHER, SELFPAY ==
--- NOTE | ~2022-06-28 | XR_ITS ---
EXAMINATION: XR HAND, LEFT CLINICAL INFORMATION: Left hand pain after injury COMPARISON: None TECHNIQUE: PA, lateral, and oblique views of the left hand. FINDINGS: The bones and soft tissues are normal. No fracture. Alignment is anatomic. Joint spaces are maintained. No erosions or soft tissue calcifications. XR/XR hand LT min 3V IMPRESSION: Normal left hand.
--- NOTE | ~2022-06-28 | XR_ITS ---
EXAMINATION: XR KNEE, RIGHT CLINICAL INFORMATION: Sprain of right knee, unspecified site COMPARISON: None TECHNIQUE: Four views of the right knee. FINDINGS: No evidence for acute bony fracture or dislocation. There is mild narrowing in the medial joint space compartment with medial femoral condylar and the low-dose/lateral tibial plateau spurring. No osteochondral lesions. Patellar spurs are observed. Minimal suprapatellar effusion seen. XR/XR knee RT 4V IMPRESSION: No acute fracture or dislocation. Degenerative changes.
== END 2022-06-28 13:22 | disposition home or self-care (01) ==
LOC: HO.HMGCX 13:21
PROVIDERS: PCP Internal Medicine; Visit Provider Internal Medicine
DX: S63.92XA Sprain of unspecified part of left wrist and hand, initial encounter (principal); S83.91XA Sprain of unspecified site of right knee, initial encounter
CPT/HCPCS: 73130; 73564

== ENCOUNTER 2022-06-30 12:05 | Outpatient (REF) | payer OTHER, SELFPAY ==
--- NOTE | ~2022-06-30 | XR_ITS ---
EXAMINATION: XR CERVICAL SPINE CLINICAL INFORMATION: Cervical disc disease with pain. COMPARISON: CT cervical spine 10/14/2021. TECHNIQUE: 3 views of the cervical spine were obtained. FINDINGS: Unchanged mild reversal of the cervical lordosis. No acute compression deformities or subluxation. The atlantooccipital and atlantoaxial articulations are maintained. Mild multilevel disc space narrowing and facet arthropathy leading to mild neural foraminal encroachment on the oblique views at the level of the mid and lower cervical spine. No prevertebral soft tissue thickening. The imaged lung apices are clear. XR/XR cervical spine 4V IMPRESSION: 1. No acute compression deformities or subluxation. 2. Mild cervical spondylosis leading to mild neural foraminal encroachment at the level of the mid and lower cervical spine.
--- NOTE | ~2022-06-30 | XR_ITS ---
EXAMINATION: XR LUMBOSACRAL SPINE CLINICAL INFORMATION: Lumbar radiculopathy. COMPARISON: Radiograph of the lumbar spine dated from 10/14/2021. TECHNIQUE: Three views of the lumbosacral spine. FINDINGS: No evidence of acute compression deformities or malalignment. Similar degree of mild to moderate multilevel lower spondylosis with disc space narrowing and bilateral facet arthropathy, more apparent in the lower lumbar spine. SI joints are symmetric. Pelvic tubal ligation devices are again noted. Right upper quadrant cholecystectomy clips are seen. XR/XR lumbar spine 2-3V IMPRESSION: 1. No acute fractures or malalignment. 2. Mild to moderate lumbar spondylosis, similar to prior.
== END 2022-06-30 12:06 | disposition home or self-care (01) ==
LOC: HO.XRAY 12:05
PROVIDERS: PCP Internal Medicine; Visit Provider Psychiatry & Neurology Neurology
DX: M50.90 Cervical disc disorder, unspecified, unspecified cervical region (principal); M54.16 Radiculopathy, lumbar region
CPT/HCPCS: 72050; 72100

== ENCOUNTER 2022-07-18 13:11 | Emergency (ER) | payer OTHER, SELFPAY ==
--- NOTE | ~2022-07-18 | XR_ITS ---
EXAMINATION: XR RIBS, RIGHT CLINICAL INFORMATION: Rib pain COMPARISON: 07/18/2022 earlier film TECHNIQUE: Single view of the chest and 3 detailed views of the right ribs FINDINGS: Chest film shows no evidence for pneumothorax or effusion. The mediastinal contours are within normal limits. Detailed imaging of the ribs does not demonstrate evidence for fracture. XR/XR ribs RT min 3V w CXR1V IMPRESSION: No fracture is seen. No pneumothorax or effusion.
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
[2022-07-18 13:58] VITALS: BP 135/88; PULSE 93; RESP 18; TEMP 36.7; O2SAT 100; BMI 39.9
[2022-07-18] MEDS: traMADoL HCL 50 MG TABLET PO (17:01)
[2022-07-18] MEDS: Cyclobenzaprine HCl 10 MG TABLET PO (17:01)
[2022-07-18] MEDS: Acetaminophen 325 MG TABLET 975 MG PO (17:02)
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
== END 2022-07-18 18:46 | disposition home or self-care (01) ==
PROVIDERS: Emergency Provider Emergency Medicine; PCP Internal Medicine
DX: S89.91XA Unspecified injury of right lower leg, initial encounter (principal); S93.601A Unspecified sprain of right foot, initial encounter; S90.811A Abrasion, right foot, initial encounter; R51.9 Headache, unspecified; M54.2 Cervicalgia; R07.89 Other chest pain; M25.561 Pain in right knee; M79.641 Pain in right hand; M25.531 Pain in right wrist; V27 Motorcycle rider injured in collision with fixed or stationary object; Y93.9 Activity, unspecified; Y92.410 Unspecified street and highway as the place of occurrence of the external cause; Y99.9 Unspecified external cause status; Z79.899 Other long term (current) drug therapy; Z87.891 Personal history of nicotine dependence
CPT/HCPCS: 71045; 71101; 73110; 73130; 73560; 73590; 73620; 99283

== ENCOUNTER 2022-07-26 07:37 | Outpatient (REF) | payer OTHER, SELFPAY ==
--- NOTE | ~2022-07-26 | XR_ITS ---
EXAMINATION: XR KNEE AP STANDING CLINICAL INFORMATION: Pain COMPARISON: Previous right knee x-ray July 2022 TECHNIQUE: AP bilateral standing view of the knees and sunrise view of the right knee was obtained. FINDINGS: Bone alignment is normal. No fracture or dislocation. Arthritis at the bilateral medial femoral tibial joints with joint space narrowing and osteophyte formation. [place] view of the right knee is normal. Soft tissues are normal. XR/XR knee standing BI IMPRESSION: Bilateral arthritis.
--- NOTE | ~2022-07-26 | XR_ITS ---
EXAMINATION: XR KNEE AP STANDING CLINICAL INFORMATION: Pain COMPARISON: Previous right knee x-ray July 2022 TECHNIQUE: AP bilateral standing view of the knees and sunrise view of the right knee was obtained. FINDINGS: Bone alignment is normal. No fracture or dislocation. Arthritis at the bilateral medial femoral tibial joints with joint space narrowing and osteophyte formation. [place] view of the right knee is normal. Soft tissues are normal. XR/XR knee RT 1V IMPRESSION: Bilateral arthritis.
== END 2022-07-26 07:38 | disposition home or self-care (01) ==
LOC: HO.HOSX 07:37
PROVIDERS: Visit Provider Physician Assistant
DX: M17.11 Unilateral primary osteoarthritis, right knee (principal)
CPT/HCPCS: 20610; 73560; 73565; 99202; 99212; J1040

== ENCOUNTER 2022-10-11 12:29 | Emergency (ER) | payer OTHER, SELFPAY ==
--- NOTE | ~2022-10-11 | XR_ITS ---
EXAMINATION: XR KNEE, RIGHT CLINICAL INFORMATION: Right knee pain status post fall. COMPARISON: None TECHNIQUE: Four views of the right knee. FINDINGS: [id number] tricompartmental degenerative joint changes are seen most pronounced in the medial femoral-tibial and patellofemoral joint spaces. There is no acute fracture or dislocation. There is a trace suprapatellar joint effusion. The soft tissues are unremarkable. XR/XR knee RT 4V IMPRESSION: 1. Mild to moderate tricompartmental degenerative joint changes. No acute fracture. 2. Trace suprapatellar joint effusion.
[2022-10-11 12:56] VITALS: BP 128/76; PULSE 79; RESP 18; TEMP 36.7; O2SAT 96; BMI 40.5
--- NOTE | 2022-10-11 12:57 | ED_ITS ---
HPI - Extremity Injury (Lower) General Chief Complaint: Extremity Injury, Lower <Kaye Barragan NP - Last Filed: 10/11/22 12:58> Stated Complaint: fall r knee inj <Kaye Barragan NP - Last Filed: 10/11/22 12:58> Time Seen by Provider: 10/11/22 14:43 <Kaye Barragan NP - Last Filed: 10/11/22 12:58> Source: patient <ENMANUEL Lombardo - Last Filed: 10/11/22 17:46> Mode of arrival: ambulatory <ENMANUEL Lombardo - Last Filed: 10/11/22 17:46> Limitations: no limitations <ENMANUEL Lombardo Last Filed: 10/11/22 17:46> History of Present Illness HPI Narrative: 52-year-old female presents for fall and complained of right knee pain and decreased mobility due to right knee. Patient states yesterday while at a concert she felt left ankle pain which caused her to lean and fall unto her right knee. Patient denies hitting head or loss of consciousness. <ENMANUEL Lombardo - Last Filed: 10/11/22 17:46> Related Data Home Medications: Previous Rx's Medication Instructions Recorded lidocaine 5 % topical patch 1 patch topical DAILY 30 days #30 10/30/21 ea duloxetine 30 mg capsule,delayed 30 mg PO DAILY 90 days #90 caps 11/20/21 release (Cymbalta) albuterol sulfate 90 mcg/actuation 2 puff inhalation Q6H PRN 11/30/21 aerosol inhaler (ProAir HFA) shortness of breath or wheezing 90 days #8.5 grams cyclobenzaprine 10 mg tablet 10 mg PO BEDTIME #14 tabs 06/28/22 acetaminophen 500 mg tablet 1,000 mg PO QID PRN fever or pain 07/18/22 (Tylenol Extra Strength) #14 tabs cyclobenzaprine 10 mg tablet 10 mg PO Q8H #14 tabs 07/18/22 tramadol 50 mg tablet 50 mg PO Q8H PRN pain #14 tabs 07/18/22 meloxicam 15 mg tablet 15 mg PO DAILY #14 tabs 07/21/22 omeprazole 40 mg capsule,delayed 40 mg PO DAILY 90 days #90 caps 08/03/22 release fluticasone propionate 50 1 spray intranasal BID 30 days #16 10/11/22 mcg/actuation nasal grams spray,suspension (Flonase Allergy Relief) ibuprofen 400 mg tablet 400 mg PO Q6H PRN pain 7 days #28 10/11/22 tabs loratadine 10 mg tablet 10 mg PO DAILY 90 days #90 tabs 10/11/22 prednisone 20 mg tablet 40 mg PO DAILY 5 days #10 tabs 10/11/22 tolterodine 2 mg tablet (Detrol) 2 mg PO .q am 90 days #90 tabs 10/11/22 <Kaye Barragan NP - Last Filed: 10/11/22 12:58> Allergies/Adverse Reactions: Allergies Allergy/AdvReac Type Severity Reaction Status Date / Time amoxicillin [AMOXICILLIN] Allergy Unknown HIVES Verified 08/03/22 12:00 codeine [Tylenol-Codeine] Allergy Unknown Vomiting Verified 08/03/22 12:00 compazine Allergy Unknown Seizure Verified 08/03/22 12:00 hydromorphone [From DILAUDID] Allergy Unknown VOMITING,DI Verified 08/03/22 12:00 ZZY meperidine [Demerol] Allergy Unknown Rash Verified 08/03/22 12:00 naproxen AdvReac Unknown Verified 10/11/22 16:35 <Kaye Barragan NP - Last Filed: 10/11/22 12:58> Review of Systems Review of Systems: RIght knee pain <ENMANUEL Lombardo - Last Filed: 10/11/22 17:46> Yes all other systems are reviewed and are negative <ENMANUEL Lombardo - Last Filed: 10/11/22 17:46> PMFSH Past Medical History Medical History: Medical History Anxiety disorder Arthritis Asthma delivery delivered Cholecystitis Chronic back pain Chronic GERD Depression Diverticulosis Fibromyalgia IBS (irritable bowel syndrome) Morbid obesity Neuropathy Osteoarthritis of left knee Tubular adenoma <Kaye Barragan NP - Last Filed: 10/11/22 12:58> Surgical History: Surgical History H/O knee surgery H/O oophorectomy Hx of section <Kaye Barragan NP - Last Filed: 10/11/22 12:58> Family History Family History: Family History Maternal Grandmother Ovarian ca Other Substance use disorder <Kaye Barragan NP - Last Filed: 10/11/22 12:58> Social History Social History: Social History (Updated 07/26/22 @ 10:52 by JOSE Turcios) Housing: House Alcohol intake: current Alcohol intake frequency: a few times a month Alcohol type: beer Patient Tobacco Use Status: Former Tobacco user Quit Date: 2019 Tobacco use type: Cigarette Years Smoked: 15 years e-Cigarette/Vaping Use: Never Used Advance Directives: Yes Advance Directives Information Provided: Yes Advance Directives on File: No 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al status: unemployed 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 Cognitive needs: No Hearing needs: No Vision needs: No <Kaye Barragan NP - Last Filed: 10/11/22 12:58> Physical Exam Vital Signs: Vital Signs: Last Vital Signs Temp 98.1 F 10/11/22 12:56 Pulse 79 10/11/22 12:56 Resp 18 10/11/22 12:56 BP 128/76 10/11/22 12:56 Pulse Ox 96 10/11/22 12:56 O2 Del Method 10/11/22 12:56 BMI result Body Mass Index 40.5 <Kaye Barragan NP - Last Filed: 10/11/22 12:58> Vital Signs: Last Vital Signs Temp 98.1 F 10/11/22 12:56 Pulse 79 10/11/22 12:56 Resp 18 10/11/22 12:56 BP 128/76 10/11/22 12:56 Pulse Ox 96 10/11/22 12:56 O2 Del Method 10/11/22 12:56 BMI result Body Mass Index 40.5 <ENMANUEL Lombardo - Last Filed: 10/11/22 17:46> Const: General: cooperative, healthy appearing, comfortable, no acute distress, well developed, alert, awake and Physically active <ENMANUEL Lombardo - Last Filed: 10/11/22 17:46> Orientation/consciousness: oriented to place, oriented to time and patient oriented x3 <ENMANUEL Lombardo Last Filed: 10/11/22 17:46> HEENT: Head: Yes normal to inspection, Yes No palpable skull fracture present, Yes normocephalic, Yes atraumatic and No abrasion <ENMANUEL Lombardo Last Filed: 10/11/22 17:46> Ears: hearing grossly normal bilaterally, external ears normal, TM's normal bilaterally, EAC's normal, mastoids normal and no periauricular adenopathy <ENMANUEL Lombardo Last Filed: 10/11/22 17:46> General nose exam: Normal external nose present and Normal nares present <ENMANUEL Lombardo Last Filed: 10/11/22 17:46> Face and sinus: Yes normal facial exam and Yes sinuses nontender <ENMANUEL Lombardo Last Filed: 10/11/22 17:46> Eyes: General: appearance normal, both eyes and all related structures <ENMANUEL Lombarod Last Filed: 10/11/22 17:46> Neck: Neck: Yes normal visual inspection, Yes full ROM, Yes no lymphadenopathy, Yes no meningeal signs, Yes trachea midline, Yes supple, No anterior neck swelling and No tender <ENMANUEL Lombardo Last Filed: 10/11/22 17:46> Chest: Chest palpation & inspection: normal inspection of the chest and normal palpation of entire chest wall <ENMANUEL Lombardo Last Filed: 10/11/22 17:46> Resp: Effort & Inspection: normal respiratory effort and able to speak in complete sentences <ENMANUEL Lombardo Last Filed: 10/11/22 17:46> Auscultation: clear to auscultation bilaterally <ENMANUEL Lombardo Last Filed: 10/11/22 17:46> Cardio: Jugular venous distension: no JVD <ENMANUEL Lombardo Last Filed: 10/11/22 17:46> Heart sounds: S1 normal heart sound present and S2 normal heart sound present <ENMANUEL Lombardo Last Filed: 10/11/22 17:46> GI: Inspection: Yes normal to inspection and No abdominal wall ecchymosis <ENMANUEL Lombardo - Last Filed: 10/11/22 17:46> Palpation (GI): Soft to palpation, not firm, nontender, no guarding and not rigid <ENMANUEL Lombardo - Last Filed: 10/11/22 17:46> : General: No CVA tenderness and Yes no CVA tenderness <ENMANUEL Lombardo - Last Filed: 10/11/22 17:46> Back/Spine/Pelvis: Back: no CVA tenderness, No CVA tenderness and No back tend erness <ENMANUEL Lombadro - Last Filed: 10/11/22 17:46> Skin: General skin exam: no rashes or lesions noted and elasticity normal <ENMANUEL Lombardo - Last Filed: 10/11/22 17:46> Neuro: General: oriented to place, oriented to time, patient oriented x3, tone normal, moves all extremities, Normal light touch and pain sensation, no meningeal signs, no focal motor deficits, CN's II-XI intact bilaterally and normal sensation to monofilament <ENMANUEL Lombardo - Last Filed: 10/11/22 17:46> Extrem: Other: Left lower extremity normal and motor/neuro/vascular exam is intact <ENMANUEL Lombardo - Last Filed: 10/11/22 17:46> General: Yes normal to inspection and Yes full ROM <ENMANUEL Lombardo - Last Filed: 10/11/22 17:46> Knee images: 1. Positive for tenderness on palpation and on range of motion. Slight ecchymosis. Negative for crepitus or deformity. Negative for obvious swelling. Popliteal pulses intact. Motor exam of knee limited due to pain. Pedal pulses intact. Rest of extremity normal 2. Positive for tenderness on palpation and on range of motion. slight ecchymosis. Negative for crepitus or deformity. Negative for obvious swelling. Popliteal pulses intact. Motor exam of knee limited due to pain. Pedal pulses intact. Rest of extremity normal <Kaye Barragan NP - Last Filed: 10/11/22 12:58> Knee images: 1. Positive for tenderness on palpation and on range of motion. Slight ecchymosis. Negative for crepitus or deformity. Negative for obvious swelling. Popliteal pulses intact. Motor exam of knee limited due to pain. Pedal pulses intact. Rest of extremity normal 2. Positive for tenderness on palpation and on range of motion. slight ecchym osis. Negative for crepitus or deformity. Negative for obvious swelling. Popliteal pulses intact. Motor exam of knee limited due to pain. Pedal pulses intact. Rest of extremity normal <ENMANUEL Lombardo - Last Filed: 10/11/22 17:46> Psych: Appearance: grossly normal, well kempt and not disheveled <ENMANUEL Lombardo Last Filed: 10/11/22 17:46> Course Course Course Narrative: This is a rapid medical exam. Deferred additional HPI, ROS, PE to primary provider 52 yo female with history of fibromyalgia, OA, neuropathy here with right knee pain after a slip and fall. WIll check x-rays. VSS <Kaye Barragan NP - Last Filed: 10/11/22 12:58> Reevaluation(s) Reevaluation #1: Left lower extremity negative for any tenderness. Patient informed small fluid any may be due to arthritis or trauma which occurred yesterday which indicates she may need MRI machine is no ligamentous/meniscus tear in her knee. Guy bandage placed on knee with steroids ordered and pain meds. Patient given crutches. <ENMANUEL Lombardo - Last Filed: 10/11/22 17:46> Time: 16:10 <ENMANUEL Lombardo - Last Filed: 10/11/22 17:46> Medications Administered Discontinued Medications Generic Name Dose Route Start Last Admin Trade Name Freq PRN Reason Stop Dose Admin Ibuprofen 800 mg 10/11/22 15:43 10/11/22 15:53 Ibuprofen 800 Mg Tablet PO 10/11/22 15:44 800 mg ONCE ONE Administration <Kaye Barragan NP - Last Filed: 10/11/22 12:58> Medications Administered Discontinued Medications Generic Name Dose Route Start Last Admin Trade Name Freq PRN Reason Stop Dose Admin Ibuprofen 800 mg 10/11/22 15:43 10/11/22 15:53 Ibuprofen 800 Mg Tablet PO 10/11/22 15:44 800 mg ONCE ONE Administration <ENMANUEL Lombardo Last Filed: 10/11/22 17:46> Medical Decision Making Medical Decision Making [facility] Narrative: Right knee pain after fall. X-ray ordered normal. <ENMANUEL Lombardo - Last Filed: 10/11/22 17:46> Differential Diagnosis Differential Diagnoses: The differential diagnosis associated with the presentation includes (Fracture, dislocation) <ENMANUEL Lombardo - Last Filed: 10/11/22 17:46> Radiology Impression Discussion of test interpretation with radiology: I have reviewed the radiologist's reading. <ENMANUEL Lombardo - Last Filed: 10/11/22 17:46> Prescription Management I considered prescription management with: Pain Medication <ENMANUEL Lombardo - Last Filed: 10/11/22 17:46> Discharge Plan Discharge Clinical Impression: Knee sprain, Joint effusion <Kaye Barragan NP - Last Filed: 10/11/22 12:58> Patient Disposition: Home, Self-Care <Kaye Barragan NP - Last Filed: 10/11/22 12:58> Instructions: Knee Sprain (ED), Crutch Instructions (ED), How to Use an Elastic Bandage (ED), Swollen Knee Joint (ED), R.I.C.E. Treatment (ED) <Kaye Barragan NP - Last Filed: 10/11/22 12:58> Additional Instructions: You will be discharged with pain medication and steroids. You need to follow-up with primary care provider and orthopedics to see if he needs MRI to make sure there is no meniscus or ligament injury due to fall. Return to the ED for worsening pain, redness, swelling of lower extremity, bluish discoloration, red streaks, chest pain, shortness of breath, numbness/tingling of lower extremity, or any other concerning symptoms. <Kaye Barragan NP - Last Filed: 10/11/22 12:58> Prescriptions: New prednisone 20 mg tablet 40 mg PO DAILY 5 Days Qty: 10 0RF ibuprofen 400 mg tablet 400 mg PO Q6H PRN (Reason: pain) 7 Days Qty: 28 0RF No Action lidocaine 5 % adhesive patch,medicated 1 patch topical DAILY 30 Days Qty: 30 1RF Rx Instructions: leave on most painful area for up to 12 hrs duloxetine [Cymbalta] 30 mg capsule,delayed release(DR/EC) 30 mg PO DAILY 90 Days Qty: 90 1RF albuterol sulfate [ProAir HFA] 90 mcg/actuation HFA aerosol inhaler 2 puff inhalation Q6H PRN (Reason: shortness of breath or wheezing) 90 Days Qty: 8.5 0RF Rx Instructions: dispense which ever albuterol inhaler is covered under patients insurance omeprazole 40 mg capsule,delayed release(DR/EC) 40 mg PO DAILY 90 Days Qty: 90 0RF fluticasone propionate [Flonase Allergy Relief] 50 mcg/actuation spray,suspension 1 spray intranasal BID 30 Days Qty: 16 2RF Rx Instructions: administer into each nostril loratadine 10 mg tablet 10 mg PO DAILY 90 Days Qty: 90 0RF tolterodine [Detrol] 2 mg tablet 2 mg PO .q am 90 Days Qty: 90 0RF acetaminophen [Tylenol Extra Strength] 500 mg tablet 1,000 mg PO QID PRN (Reason: fever or pain) Qty: 14 0RF cyclobenzaprine 10 mg tablet 10 mg PO Q8H Qty: 14 0RF tramadol 50 mg tablet 50 mg PO Q8H PRN (Reason: pain) Qty: 14 0RF Rx Instructions: May partially fill upon patient request meloxicam 15 mg tablet 15 mg PO DAILY Qty: 14 0RF cyclobenzaprine 10 mg tablet 10 mg PO BEDTIME Qty: 14 0RF <Kaye Barragan NP - Last Filed: 10/11/22 12:58> Referrals: Juliet Torres MD [Primary Care Provider] - (Knee sprain with trace fluid. May need MRI to rule out tear) <Kaye Barragan NP - Last Filed: 10/11/22 12:58> Stand Alone Forms: Work/School Release <Kaye Barragan NP - Last Filed: 10/11/22 12:58> Interventions: ED Discharge Assessment Last Done: 10/11/22 16:36 <Kaye Barragan NP - Last Filed: 10/11/22 12:58> Discharge Date/Time: 10/11/22 16:38 <Kaye Barragan NP - Last Filed: 10/11/22 12:58> Print Language: Bengali <Kaye Barragan NP - Last Filed: 10/11/22 12:58>
[2022-10-11] MEDS: Ibuprofen 800 MG TABLET PO (15:53)
== END 2022-10-11 16:38 | disposition home or self-care (01) ==
PROVIDERS: Emergency Provider Student in an Organized Health Care Education/Training Program; PCP Internal Medicine
DX: S83.91XA Sprain of unspecified site of right knee, initial encounter (principal); X58.XXXA Exposure to other specified factors, initial encounter; Y93.9 Activity, unspecified; Y92.9 Unspecified place or not applicable; Y99.9 Unspecified external cause status
CPT/HCPCS: 73564; 99283

== ENCOUNTER → 2022-10-13 12:48 | Outpatient (BNVA) | payer OTHER, SELFPAY | PROVIDERS: PCP Internal Medicine; Visit Provider Physician Assistant | DX: M23.91 Unspecified internal derangement of right knee (principal); M17.11 Unilateral primary osteoarthritis, right knee | CPT/HCPCS: 99212 ==

== ENCOUNTER 2022-10-20 07:35 | Outpatient (REF) | payer OTHER, SELFPAY ==
--- NOTE | ~2022-10-20 | MR_ITS ---
EXAMINATION: MR KNEE WITHOUT CONTRAST, RIGHT CLINICAL INFORMATION: Primary osteoarthritis. COMPARISON: X-ray 10/11/2022 TECHNIQUE: MRI of the knee without contrast was performed using routine sequences on a high-field scanner. FINDINGS: MENISCI: Medial Meniscus: Complex irregular tearing involving the articular surfaces and free edge in the posterior horn. Underlying degeneration. Mild medial extrusion of the body, with degenerative signal. Lateral Meniscus: Intact LIGAMENTS: Cruciate: ACL is slightly bowed laterally, otherwise intact. Mild T2 signal in the PCL, probably mucoid degeneration. Collateral: There is a lobulated septated right T2/low T1 signal focus, overlying the MCL,at the level of the proximal tibia. This measures 2.9 x 1.4 x 2.6 cm (AP, transverse, craniocaudal). There appears to be extension of this focus along the deep surface of the MCL as well. Imaging findings are nonspecific. Differential consideration include complex ganglion cyst. The MCL otherwise appears intact. LCL complex is intact. EXTENSOR MECHANISM: Intact. Cystic focus overlying the patella measuring 0.5 x 3.6 x 2.9 cm, probable prepatellar bursitis. Anterior subcutaneous tenderness edema otherwise present. ARTICULAR CARTILAGE/BONE: Patellofemoral Compartment: Patchy foci of cartilage heterogeneity and fissuring in the patella. Foci of cartilage thinning and fissuring in the central and lateral trochlea. Marginal osteophytes. Medial Compartment: Marginal osteophytes. Nonuniform cartilage loss, including areas of high-grade/full-thickness cartilage loss in the weightbearing compartment. Subchondral tibial edema. Lateral Compartment: Marginal osteophytes. Mild cartilage thinning in the lateral aspect of the compartment. JOINT FLUID AND BURSAE: Small effusion. MR/MR knee RT wo con IMPRESSION: 1. Complex tear of the posterior horn of the medial meniscus. 2. Mucoid degeneration PCL. 3. Lobulated septated bright T2/low T1 signal focus overlying the MCL, measuring 2.9 x 1.4 x 2.6 cm. Imaging findings are nonspecific. Differential consideration include a complex ganglion cyst. Further characterization with MRI without and with contrast as clinically warranted. 4. Cystic focus overlying the patella measuring 0.5 x 3.6 x 2.9 cm, probable prepatellar bursitis. 5. Moderate patellofemoral and medial compartment arthritis. Mild lateral compartment arthritis. 6. Small effusion.
== END 2022-10-20 07:36 | disposition home or self-care (01) ==
LOC: HO.MRI 07:35
PROVIDERS: Visit Provider Physician Assistant
DX: M17.11 Unilateral primary osteoarthritis, right knee (principal); M23.91 Unspecified internal derangement of right knee
CPT/HCPCS: 73721

== ENCOUNTER → 2022-10-25 12:30 | Outpatient (BNVA) | payer OTHER, SELFPAY | PROVIDERS: PCP Internal Medicine; Visit Provider Orthopaedic Surgery | DX: M17.11 Unilateral primary osteoarthritis, right knee (principal); M23.91 Unspecified internal derangement of right knee | CPT/HCPCS: 99212; J1100 ==

== ENCOUNTER → 2022-11-22 12:33 | Outpatient (BNVA) | payer OTHER, SELFPAY | PROVIDERS: PCP Internal Medicine; Visit Provider Orthopaedic Surgery | DX: S83.411D Sprain of medial collateral ligament of right knee, subsequent encounter (principal); M17.11 Unilateral primary osteoarthritis, right knee; M23.91 Unspecified internal derangement of right knee | CPT/HCPCS: 99212 ==

== ENCOUNTER → 2022-12-20 12:43 | Outpatient (BNVA) | payer OTHER, SELFPAY | PROVIDERS: PCP Internal Medicine; Visit Provider Orthopaedic Surgery | DX: S83.411A Sprain of medial collateral ligament of right knee, initial encounter (principal); M17.11 Unilateral primary osteoarthritis, right knee; M23.91 Unspecified internal derangement of right knee | CPT/HCPCS: 20610; 99212; J1100 ==

== ENCOUNTER 2023-01-05 09:00 | Outpatient (RCR) | payer OTHER, SELFPAY ==
--- NOTE | 2022-11-12 12:43 | MHC.PT.EP ---
[facility] [place] Office [place] Office [place] Office [address] Misty Regan [address] [phone] F: [phone] F: [phone] F: [phone] F: [phone] Physical Therapy Plan of Care Date of Evaluation: Date of Surgery: Diagnosis: internal R knee derangement Assessment: Patient is a 52 year old R handed female who presents with s/s consistent with internal derangement of R knee. She does not work but likes to be active and be able to drive which she hasn't been able to do. Patient past medical history includes obesity, fibromyalgia, and history of OA/cortisone. Current impairments include pain, posture, ROM, strength, balance, activity tolerance and functional mobility. Functional limitations include decreased ability to walk, stand, negotiate stairs, drive and sleep. Patient is motivated with good rehab potential. Skilled PT will address impairments and functional limitations in order to achieve goals. Frequency and Duration: The patient will be seen 2x/week for 5 weeks Short Term Goals: I with HEP - 2 weeks AAROM flexion to 100 - 3 weeks quad set good - 3 weeks Amb with symmetrical gait - 3 weeks Detention Goals: LEFS 40/80 - 5 weeks AAROM flexion and ext 0-120 pain free - 5 weeks Strength 4/5 or better in knee and hip - 5 weeks Able to negotiate stairs with 1 hh assist - 5 weeks Treatment Plan: Modalities to reduce pain, spasms and effusion. Manual therapy to restore motion and function. Therapeutic exercise to improve strength and flexibility. Neuromuscular re-education for posture and balance. Therapeutic activities to return to functional activities of daily living. Electronically signed by: Dwayne Shaikh, PT Please sign and return to therapist. Thank you for your referral.
--- NOTE | 2023-02-21 09:12 | MHC.PT.DC ---
[facility] [place] Office [place] Office [place] Office [address] Misty Regan [address] [phone] F: [phone] F: [phone] F: [phone] F: [phone] Physical Therapy Discharge Report Diagnosis: internal R knee derangement Date of Surgery: Date of Evaluation: 11/12/22 Date of Discharge: 01/12/23 Treatments to Date: 9 Cancellations to Date: No Shows to Date: Discharge Status: Independent with HEP Discharge Summary: Pt elected to stop treatment at this time and discern next best steps. 01/05/23: pt progressing well with skilled PT. good response to stairs. limited currently by L UE paresthesias. 12/31/22: pt returns from trip feeling well without brace. good response to increased walking and weight bearing. we will continue to progress strength, strairs, functional activities as well as ROM. 12/20/22: AAROM flexion to 121 today. improved gait. pt to attempt amb without brace during trip. 12/17/22: improved gait pattern, use of cane PRN. we will continue to progress strength as tolerated. 12/15/22: AAROM flexion to 110. progressing well overall. improved strength and tolerance to ex. 12/08/22: pt progressing with AAROM flexion 107. strength improving as well. 12/03/22: pt has been feeling looser with less pain. improved AAROM. improved gait mechanics. progressed with shuttle today. no adverse reactions. 11/24/22: she had follow up and is going to wait for TKA until after trip to [place]. She will likely return for cortisone before trip. We will continue ROM and strength as tolerated. 11/16/22: pt still with significant pain limiting ability to fully perform each ex. if no progress next visit, we will send a note to ortho and await follow up (Tuesday). Patient is a 52 year old R handed female who presents with s/s consistent with internal derangement of R knee. She does not work but likes to be active and be able to drive which she hasn't been able to do. Patient past medical history includes obesity, fibromyalgia, and history of OA/cortisone. Current impairments include pain, posture, ROM, strength, balance, activity tolerance and functional mobility. Functional limitations include decreased ability to walk, stand, negotiate stairs, drive and sleep. Patient is motivated with good rehab potential. Skilled PT will address impairments and functional limitations in order to achieve goals. Electronically signed by: Dwayne Shaikh, PT Please sign and return to therapist. Thank you for your referral.
== END 2023-02-21 09:13 | disposition home or self-care (01) ==
LOC: HO.PTCHIC 09:00
PROVIDERS: PCP Internal Medicine; Visit Provider Physician Assistant
DX: M23.91 Unspecified internal derangement of right knee (principal)
CPT/HCPCS: 97110; 97163

== ENCOUNTER → 2023-01-06 12:19 | Outpatient (BNVA) | payer OTHER, SELFPAY | PROVIDERS: PCP Internal Medicine; Visit Provider Orthopaedic Surgery | DX: M17.11 Unilateral primary osteoarthritis, right knee (principal); M23.91 Unspecified internal derangement of right knee; S83.411D Sprain of medial collateral ligament of right knee, subsequent encounter | CPT/HCPCS: 99212 ==

== ENCOUNTER 2023-01-11 09:10 | Outpatient (REF) | payer OTHER, SELFPAY ==
[2023-01-11 11:14] LABS: MANUAL DIFF FLAG NO
[2023-01-11 11:37] LABS: Basophils Percent Auto 0.2 % (0-2); Eosinophils Percent Auto 0.1 % (0-4); Hemoglobin 13.2 g/dl (12.0-16.0); Imm Gran Abs Auto 0.03 X10*3/uL (0.00-0.03); Imm Gran Pct Auto 0.3 % (0.0-0.4); Lymphocytes Absolute Auto 2.5 X10*3/uL (1.2-4.9); Lymphocytes Percent Auto 24.9 % (20-40); Mean Corpuscular Hemoglobin 31.4 pg (27.0-33.0); Mean Platelet Volume 10.5 fL (9.4-12.3); Monocytes Absolute Auto 0.6 X10*3/uL (0.1-1.2); Monocytes Percent Auto 6.2 % (2-11); Neutrophils Percent Auto 68.3 % (45-73); Platelet Count 396 X10*3/uL (160-400); Red Blood Count 4.21 X10*6/uL (4.20-5.50); Red Cell Distribution Width 13.2 % (11.0-16.0); White Blood Count 10.2 X10*3/uL (4.8-10.8)
[2023-01-11 11:58] LABS: Alanine Aminotransferase 15 U/L (0-31); Albumin Level 4.2 g/dL (3.5-5.0); Alkaline Phosphatase 84 U/L (39-117); Anion Gap 14 (12-20); Aspartate Amino Transferase 17 U/L (5-31); Bilirubin Total 0.3 mg/dL (0.0-1.0); Blood Urea Nitrogen 17 mg/dL (9-16); Carbon Dioxide 25 mmol/L (22-29); Chloride 104 mmol/L (96-108); Cholesterol 236 mg/dL; Estimated Glomerular Filt Rate > 60; Glucose Fasting 97 mg/dL (60-99); HDL Cholesterol 68 mg/dL; LDL Cholesterol Calculated 144 mg/dl; Sodium 139 mmol/L (135-145); Total Protein 7.2 g/dL (6.5-8.0); Triglycerides 123 mg/dL
[2023-01-11 12:17] LABS: TSH reflex Free T4 1.18 uIU/mL (0.32-4.0)
== END 2023-01-11 09:11 | disposition home or self-care (01) ==
LOC: HO.HMGCLDS 09:10
PROVIDERS: PCP Internal Medicine; Visit Provider Internal Medicine
DX: E66.01 Morbid (severe) obesity due to excess calories (principal); F33.9 Major depressive disorder, recurrent, unspecified; K21.9 Gastro-esophageal reflux disease without esophagitis; K58.9 Irritable bowel syndrome, unspecified; M79.7 Fibromyalgia; N32.81 Overactive bladder; Z91.09 Other allergy status, other than to drugs and biological substances
CPT/HCPCS: 36415; 80053; 80061; 84443; 85025

== ENCOUNTER 2023-03-22 10:18 | Outpatient (AMB) | payer OTHER, SELFPAY ==
--- NOTE | 2023-03-22 10:25 | MHC.PC.OV ---
Vital Signs 03/22/23 10:26 Height 5 ft 6 in Weight 270 lb 8 oz BMI 43.7 BP 124/80 Blood Pressure Location Lt brachial Position Sitting Pulse 99 Pulse Source Pulse Oximeter Pulse Oximetry (%) 98 Oxygen Delivery Method Room Air Intake Visit Reasons: Unilateral primary osteoarthritis of right knee Allergies amoxicillin [AMOXICILLIN] Allergy (Unknown, Verified 03/22/23 10:25) HIVES codeine [Tylenol-Codeine] Allergy (Unknown, Verified 03/22/23 10:25) Vomiting compazine Allergy (Unknown, Verified 03/22/23 10:25) Seizure hydromorphone [From DILAUDID] Allergy (Unknown, Verified 03/22/23 10:25) VOMITING,DIZZY meperidine [Demerol] Allergy (Unknown, Verified 03/22/23 10:25) Rash naproxen Adverse Reaction (Verified 03/22/23 10:25) Unknown Medication List - Last Reconciled 03/22/23 by Juliet Torres MD albuterol sulfate 90 mcg/actuation (ProAir HFA) 2 puffs inhalation Q6H PRN 90 days celecoxib (Celebrex) 200 mg PO BID 30 days duloxetine (Cymbalta) 30 mg PO DAILY 90 days fluticasone propionate 50 mcg/actuation (Flonase Allergy Relief) 1 spray intranasal BID 90 days lidocaine 5% 1 patch topical DAILY 30 days loratadine 10 mg PO DAILY 90 days omeprazole 40 mg PO DAILY 90 days tolterodine (Detrol) 2 mg PO BID 90 days Tobacco use date assessed: 03/22/23 Dental Screening Dental Screen Date: 03/22/23 Did you have a dental visit in the last 12 months?: Yes Did you have a dental problem in the last 6 months where you did not have access to dental care?: No Was dental information given to patient?: No HPI Unilateral primary osteoarthritis of right knee HPI Details Preop evaluation for right knee replacement surgery EKG done today shows normal sinus rhythm 90 beats per minute no acute ST-T findings Labs were done January of this year reviewed, no anemia kidney functions are intact Medication list reviewed Review of system no indication of any infection Limited range of motion of both shoulders chronic limited range of motion of cervical spine also chronic Patient says that she was told it will be under epidural anesthesia. Patient is taking no blood thinners not even aspirin Patient is stable for knee replacement surgery right side. PFSH Medical History Anxiety disorder Arthritis Asthma delivery delivered Cholecystitis Chronic back pain Chronic GERD Depression Diverticulosis Fibromyalgia IBS (irritable bowel syndrome) Morbid obesity Neuropathy Osteoarthritis of left knee Tubular adenoma Surgical History H/O knee surgery H/O oophorectomy Hx of section Family History Maternal Grandmother Ovarian ca Other Substance use disorder Social History Housing: House Alcohol intake: current Alcohol intake frequency: a few times a month Alcohol type: beer Patient Tobacco Use Status: Former Tobacco user Quit Date: 2019 Tobacco use type: Cigarette Years Smoked: 15 years e-Cigarette/Vaping Use: Never Used 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al status: unemployed 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 How often do you have a drink containing alcohol?: Monthly or less 2. How many drinks containing alcohol do you have on a typical day when you are drinking?: 1 or 2 3. How often do you have six or more drinks on one occasion?: Never Total Score: 1 Score Reviewed/Action Taken: Yes Review of Systems Const Denies chills and Denies fever(s) ENT Denies epistaxis and Denies nasal discharge Card Denies chest pain Resp Denies chest congestion, Denies cough and Denies hemoptysis GI Denies diarrhea and Denies nausea Skin/Breast Denies rash Neuro Reports no additional complaints Psych Reports no additional complaints Endo Reports no additional complaints Physical exam (Primary Care) Vital Signs: Last Vital Signs Pulse 99 03/22/23 10:26 BP 124/80 03/22/23 10:26 Pulse Ox 98 03/22/23 10:26 Oxygen Delivery Method Room Air 03/22/23 10:26 BMI result Body Mass Index 43.7 Tobacco/Smoking Status: Tobacco use Status Tobacco use date assessed 03/22/23 03/22/23 10:29 Patient Tobacco Use Status Former Tobacco user 03/22/23 10:29 Tobacco use type Cigarette 03/22/23 10:29 e-Cigarette/Vaping Use Never Used 03/22/23 10:29 Thrive Assessment: Date of Thrive Assessment Date Thrive assessed 05/29/21 03/22/23 10:29 Const General: cooperative, comfortable and no acute distress Orientation/consciousness: patient oriented x3 HENMT Head: Yes normocephalic Eyes General: appearance normal, both eyes and all related structures Neck Other: Limited range of motion in extension Resp Effort & Inspection: normal respiratory effort, no cough and no stridor Cardio Other: Rhythm: regular rhythm Heart sounds: S1 normal heart sound present and S2 normal heart sound present Skin General skin exam: turgor normal Neuro General: patient oriented x3, tone normal and moves all extremities Extrem Other: Limited range of motion of shoulders left more than right Right lower extremity: no edema Left lower extremity: no edema Office Procedures EKG [id number], Complete Assessment and Plan Assessment & Plan (1) Pre-op evaluation: Code(s): Z01.818 - Encounter for other preprocedural examination Plan Preop evaluation for right knee replacement surgery EKG done today shows normal sinus rhythm 90 beats per minute no acute ST-T findings Labs were done January of this year reviewed, no anemia kidney functions are intact Medication list reviewed Review of system no indication of any infection Limited range of motion of both shoulders chronic limited range of motion of cervical spine also chronic Patient says that she was told it will be under epidural anesthesia. Patient is taking no blood thinners not even aspirin Patient is stable for knee replacement surgery right side. Orders: Orders AMB EKG-In Office Today Z01.818 - Encounter for other preprocedural examination Coding Level of Care Code Est Pt Level 4 (96530) Diagnoses Pre-op evaluation Z01.818 CPT Codes EKG - CPT: [id number], Complete ([id number])
[2023-03-22 10:26] VITALS: BP 124/80; PULSE 99; O2SAT 98; BMI 43.7
== END 2023-03-22 12:18 | disposition home or self-care (01) ==
PROVIDERS: Visit Provider Internal Medicine
DX: Z01.818 Encounter for other preprocedural examination (principal)
CPT/HCPCS: 93000; 99214

== ENCOUNTER 2023-03-22 11:06 | Outpatient (REF) | payer OTHER, SELFPAY ==
--- NOTE | ~2023-03-22 | MM_ITS ---
EXAMINATION: MM SCREENING DIGITAL BREAST TOMOSYNTHESIS, BILATERAL CLINICAL INFORMATION: Screening. Asymptomatic. The lifetime risk of breast cancer based on the Tyrer-Cuzick Model is 6.5%. COMPARISON: Mammography: This study is compared with prior exams dating back to 2020. TECHNIQUE: Digital breast tomosynthesis is performed in both the craniocaudal and mediolateral oblique views along with computer-aided detection (CAD). Synthesized 2D images are generated from the tomosynthesis. FINDINGS: The breasts are almost entirely fatty (ACR BI-RADS breast composition Category a). There are no significant masses, abnormal calcifications, or other abnormalities. MM/MM tomosynthesis screening BI IMPRESSION: No mammographic evidence of malignancy. ASSESSMENT: BI-RADS BI-RADS 1 - Negative RECOMMENDATION: Routine annual mammography screening. 1 year F/U This examination should not preclude the clinical evaluation of a suspicious palpable abnormality. This patient's information was entered into a reminder system with a target due date for their next mammogram.
== END 2023-03-22 11:07 | disposition home or self-care (01) ==
LOC: HO.MAMMO 11:06
PROVIDERS: PCP Internal Medicine; Visit Provider Internal Medicine
DX: Z12.31 Encounter for screening mammogram for malignant neoplasm of breast (principal)
CPT/HCPCS: 77063; 77067

== ENCOUNTER → 2023-03-22 11:30 | Outpatient (BNV) | payer OTHER, SELFPAY | PROVIDERS: PCP Internal Medicine; Visit Provider Radiology Diagnostic Radiology | DX: Z12.31 Encounter for screening mammogram for malignant neoplasm of breast (principal) | CPT/HCPCS: 77063; 77067 ==

== ENCOUNTER 2023-03-30 09:04 | Outpatient (AMB) | payer OTHER, SELFPAY ==
[2023-03-30 09:16] VITALS: BP 137/63; PULSE 77; BMI 44.3
--- NOTE | 2023-03-30 09:16 | A.OFFVIS_ITS ---
Intake Vital Signs 03/30/23 09:16 Height 5 ft 6 in Weight 274 lb 11.135 oz BMI 44.3 BP 137/63 Blood Pressure Location Lt brachial Position Sitting Pulse 77 Intake Visit Reasons: 1 year follow up Intake Note: Barbara presents in office as a est.patient for a 1year f/u for IBS PT CC: pt reports having no concerns pt denies any other GI Issues [employer] Officer Required: No Accompanied by: Self / Same As Patient Allergies codeine [Tylenol-Codeine] Allergy (Severe, Verified 04/13/23 06:26) Vomiting compazine Allergy (Severe, Verified 04/13/23 06:26) Seizure hydromorphone [From DILAUDID] Allergy (Severe, Verified 04/13/23 06:26) VOMITING,DIZZY meperidine [Demerol] Allergy (Severe, Verified 04/13/23 06:26) Rash amoxicillin [AMOXICILLIN] Allergy (Intermediate, Verified 04/13/23 06:26) HIVES, THRUSH naproxen Adverse Reaction (Intermediate, Verified 04/13/23 06:26) Family History of Kidney Disease HPI 1 year follow up HPI Details LAST VISIT: IBS (irritable bowel syndrome) IBS under control. Patient change her diet reports that her bowels have been better. Patient is moving her bowels without any issues. No diarrhea or constipation. Patient denies any bloating, abdominal pain or cramping. Chronic GERD Symptoms of acid reflux suppressed with omeprazole. Patient is trying to avoid dietary triggers and late night snacking. Stressed with patient the importance of staying upright for minimal 3 hours after meals. Continue omeprazole for now. I will see patient in 1 year, sooner on as needed basis. Patient is agreeable to this plan and verbalizes understanding of instructions. She was given the opportunity to ask questions all questions answered. TODAY'S VISIT Patient is here today for follow-up. Patient reports refills last time I have seen her she has been doing quite well. Occasional postprandial abdominal bloating. Occasional constipation with no bowel movement sometimes for 2-3 days. He reports occasional acid reflux without dyspepsia, dysphagia or odynophagia. Patient denies melena, hematochezia, unintentional weight loss or ribbon like stools. Patient otherwise reports to be feeling well. ? PFSH Medical History Anxiety disorder Arthritis Asthma delivery delivered Cholecystitis Chronic back pain Chronic GERD Depression Diverticulosis Fibromyalgia IBS (irritable bowel syndrome) Morbid obesity Neuropathy Numbness and tingling in left arm Osteoarthritis of left knee Tubular adenoma Surgical History H/O colonoscopy H/O knee surgery H/O oophorectomy Hx of section Family History Maternal Grandmother Ovarian ca Other Substance use disorder Social History Household Members: Spouse and Children Housing: House Are you a primary childcare teacher to a significant other at home: No Do you presently have visiting nurse or other home services: No Alcohol intake: current Alcohol intake frequency: holidays/special occasions only Alcohol type: beer Patient Tobacco Use Status: Former Tobacco user Quit Date: 2019 Tobacco use type: Cigarette Years Smoked: 15 years e-Cigarette/Vaping Use: Never Used Substance Use Type: Marijuana Advance Directives Date on File: 04/13/23 service: No 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al status: unemployed 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 Cognitive needs: No Hearing needs: No Vision needs: No Female Reproductive History Menstrual Age of Menarche: 12 Review of Systems Const Denies weight gain and Denies weight loss ENT Reports no additional complaints, Denies dysphagia and Denies odynophagia Card Reports no additional complaints Resp Reports no additional complaints GI Denies abdominal pain, Denies belching, Denies melena, Denies bloating, Reports constipation, Denies dysphagia, Denies excessive flatus, Denies dyspepsia, Reports heartburn, Denies diarrhea, Denies loose stools, Denies nausea, Denies odynophagia and Denies vomiting Reports no additional complaints Musc Reports no additional complaints Neuro Reports no additional complaints Psych Reports no additional complaints Endo Reports no additional complaints Physical Exam Vital Signs: Last Vital Signs Pulse 77 03/30/23 09:16 BP 137/63 03/30/23 09:16 BMI result Body Mass Index 44.3 Const General: healthy appearing, no acute distress and well developed Nutritional Appearance: obese Orientation/consciousness: patient oriented x3 HEENT Head: Yes normal to inspection, Yes normocephalic and Yes atraumatic Face and sinus: Yes normal facial exam Mouth: Normal oral and palatal mucosa present Throat: Yes posterior oropharynx normal, Yes tonsils normal and Yes uvula midline Eyes General: appearance normal, both eyes and all related structures Neck Neck: Yes normal visual inspection, Yes full ROM and Yes trachea midline Thyroid: Thyroid normal Resp Effort & Inspection: normal respiratory effort, able to speak in complete [place], no tracheal deviation and symmetric chest movement Auscultation: clear to auscultation bilaterally Cardio Rate: regular rate Heart sounds: S1 normal heart sound present and S2 normal heart sound present GI Inspection: Yes normal to inspection, No distended and Yes obesity Palpation (GI): Soft to palpation, not firm, nontender and No hepatosplenomegaly present Auscultation: normal bowel sounds General: Yes no CVA tenderness Back/Spine/Pelvis Back: no CVA tenderness Skin General skin exam: elasticity normal, turgor normal and dry skin Neuro General: patient oriented x3 Psych Appearance: grossly normal Mental Status: mental status grossly normal Speech and movement: Normal speech and movement present Assessment & Plan Assessment & Plan (1) Chronic GERD: Code(s): K21.9 - Gastro-esophageal reflux disease without esophagitis Plan: Will start patient on pantoprazole. Omeprazole was not very effective. Discussed with patient avoiding dietary triggers and late night snacking. Staying upright for minimum 3 hours after meals discussed with patient. (2) Constipation: Code(s): K59.00 - Constipation, unspecified Qualifiers: Constipation type: slow transit constipation Qualified Code(s): K59.01 - Slow transit constipation Plan: Patient can start taking Senokot and Colace. Patient was also encouraged to increase fluid intake and activity to promote better bowel motility. Patient is agreeable to this plan and verbalizes understanding of instructions. She was given the opportunity to ask questions and all questions answered. Thank you for allowing me to participate in her care Medications: New pantoprazole 20 mg PO DAILY 90 tabs 1RF docusate sodium 100 mg PO BEDTIME 90 caps 3RF K59.00 - Constipation, unspecified sennosides (Natural Senna Laxative) 17.2 mg (2 x 8.6 mg) PO BEDTIME 180 tabs 3RF constipation K59.00 - Constipation, unspecified Discontinued lidocaine 5% leave on most painful area for up to 12 hrs 1 patch topical DAILY 30 days 30 ea 1RF M54.16 - Radiculopathy, lumbar region, M54.5 - Low back pain duloxetine 30 mg PO DAILY 90 days 90 caps 1RF fluticasone propionate 50 mcg/actuation administer into each nostril 1 spray intranasal BID 90 days 16 grams 2RF Coding Level of Care Code Est Pt Level 3 (00406) Diagnoses Chronic GERD K21.9 Constipation K59.01 Constipation type: slow transit constipation Time Spent (min) 30 Comment 20 minutes spent with patient and additional 10 minutes spent reviewing her records
== END 2023-03-30 09:45 | disposition home or self-care (01) ==
PROVIDERS: PCP Internal Medicine; Visit Provider Nurse Practitioner Family
DX: K21.9 Gastro-esophageal reflux disease without esophagitis (principal); K59.01 Slow transit constipation
CPT/HCPCS: 99213

== ENCOUNTER → 2023-03-30 09:04 | Outpatient (BNVA) | payer OTHER, SELFPAY | PROVIDERS: PCP Internal Medicine; Visit Provider Nurse Practitioner Family | DX: K21.9 Gastro-esophageal reflux disease without esophagitis (principal); K59.01 Slow transit constipation | CPT/HCPCS: 99212 ==

== ENCOUNTER 2023-04-07 13:00 | Outpatient (AMB) | payer OTHER, SELFPAY ==
--- NOTE | 2023-04-07 13:02 | A.OFFVIS_ITS ---
Barbara has moderate arthritic changes on xray and cannot complete her ADLs without pain. She has failed NSAIDs and additional conservative treatment. TKA is indicated. Intake Vital Signs 04/07/23 13:05 Height 5 ft 6 in Weight 274 lb BMI 44.2 Intake Visit Reasons: Preop RT TKA 04/13/23 NE Intake Note: Barbara is a 52 year old female who presents today for a follow up of her right knee pre-op visit. Pain management agreement reviewed and signed. Allergies amoxicillin [AMOXICILLIN] Allergy (Unknown, Verified 04/07/23 13:04) HIVES codeine [Tylenol-Codeine] Allergy (Unknown, Verified 04/07/23 13:04) Vomiting compazine Allergy (Unknown, Verified 04/07/23 13:04) Seizure hydromorphone [From DILAUDID] Allergy (Unknown, Verified 04/07/23 13:04) VOMITING,DIZZY meperidine [Demerol] Allergy (Unknown, Verified 04/07/23 13:04) Rash naproxen Adverse Reaction (Verified 04/07/23 13:04) Unknown Medication List - Last Reconciled 04/07/23 by Selene Farris PA-C albuterol sulfate 90 mcg/actuation (ProAir HFA) 2 puffs inhalation Q6H PRN 90 days ascorbic acid (vitamin C) (Vitamin C) 500 mg PO DAILY celecoxib (Celebrex) 200 mg PO BID 30 days docusate sodium 100 mg PO BEDTIME duloxetine (Cymbalta) 60 mg PO DAILY fluticasone propionate 50 mcg/actuation (Flonase Allergy Relief) 2 sprays intranasal DAILY lidocaine 5% 1 patch topical DAILY PRN loratadine 10 mg PO DAILY 90 days multivitamin 1 tab PO DAILY pantoprazole 20 mg PO DAILY sennosides (Natural Senna Laxative) 17.2 mg (2 x 8.6 mg) PO BEDTIME tolterodine (Detrol) 2 mg PO BID 90 days HPI HPI Comments History of Present Illness Details Ms Harris presents to the office today for preop visit. She is scheduled for right total knee arthroplasty with Dr. Alva. She continues to have ongoing pain and difficulty with ambulation in the right knee, which is affecting her quality of life; therefore, she has elected to move forward with surgery. [facility] Medical History Anxiety disorder Arthritis Asthma delivery delivered Cholecystitis Chronic back pain Chronic GERD Depression Diverticulosis Fibromyalgia IBS (irritable bowel syndrome) Morbid obesity Neuropathy Numbness and tingling in left arm Osteoarthritis of left knee Tubular adenoma Surgical History H/O colonoscopy H/O knee surgery H/O oophorectomy Hx of section Family History Maternal Grandmother Ovarian ca Other Substance use disorder Social History Housing: House Are you a primary respiratory care specialist to a significant other at home: No Do you presently have visiting nurse or other home services: No Alcohol intake: current Alcohol intake frequency: holidays/special occasions only Alcohol type: beer Patient Tobacco Use Status: Former Tobacco user Quit Date: 2019 Tobacco use type: Cigarette Years Smoked: 15 years e-Cigarette/Vaping Use: Never Used 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al status: unemployed 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 Cognitive needs: No Hearing needs: No Vision needs: No Female Reproductive History Menstrual Age of Menarche: 12 Review of Systems Const All systems reviewed & are unremarkable except as noted in HPI and below Physical Exam Vital Signs: BMI result Body Mass Index 44.2 Const General: cooperative and no acute distress Orientation/consciousness: patient oriented x3 HEENT Head: Yes normal to inspection, Yes normocephalic and Yes atraumatic Eyes General: appearance normal, both eyes and all related structures Neck Neck: Yes normal visual inspection and Yes no lymphadenopathy Resp Effort & Inspection: normal respiratory effort and able to speak in complete sentences Cardio Rate: regular rate Peripheral pulses: Peripheral pulses 2+ throughout GI Inspection: Yes normal to inspection Palpation (GI): Soft to palpation Skin General skin exam: no rashes or lesions noted Neuro General: patient oriented x3 Extrem Other: Right knee skin intact, no abrasion, erythema or joint effusion. Significant tenderness over the patella along with bruising. She can fully extend the knee but does have pain with flexion. Able to initiate SLR.. Negative steinmans. No ligamentous laxity. NVI. Psych Appearance: grossly normal Mental Status: mental status grossly normal Results Reviewed Results Reviewed: XR knee RT 4V IMPRESSION: 1. Mild to moderate tricompartmental degenerative joint changes. No acute fracture. 2. Trace suprapatellar joint effusion. Assessment & Plan Assessment & Plan (1) Osteoarthritis of right knee: Code(s): M17.11 - Unilateral primary osteoarthritis, right knee Plan: I discussed in detail the procedure and what to expect pre and post operatively. We discussed the risks, benefits and alternatives to the surgery as well as the rehabilitation course. The risks; which include, but are not limited to infection, bleeding, nerve injury, ongoing pain, swelling, and stiffness, perioperative risk of injury to bones and soft tissues, and blood clots. I?ve answered all questions and with their understanding they have consented to move forward with Right total knee arthroplasty with Dr. Alva Codeine is ok, not able to take tolerate Tylenol with codeine No IV dilaudid due to seizure Celebrex and Asa ok to take Medications: Discontinued lidocaine 5% leave on most painful area for up to 12 hrs 1 patch topical DAILY 30 days 30 ea 1RF M54.16 - Radiculopathy, lumbar region, M54.5 - Low back pain duloxetine 30 mg PO DAILY 90 days 90 caps 1RF fluticasone propionate 50 mcg/actuation administer into each nostril 1 spray intranasal BID 90 days 16 grams 2RF Patient Instructions: Scribed for Selene Farris PA-C, by Gage Berman chief medical director, on 04/07/2023 at 1:00 PM EST. I, Selene Farris PA-C, have personally reviewed and agree with the information entered by the scribe. Coding Level of Care Code Est Pt Level 3 (32982) Diagnoses Osteoarthritis of right knee M17.11
[2023-04-07 13:05] VITALS: BMI 44.2
== END 2023-04-07 13:32 | disposition home or self-care (01) ==
PROVIDERS: Visit Provider Physician Assistant
DX: M17.11 Unilateral primary osteoarthritis, right knee (principal)
CPT/HCPCS: 99024

== ENCOUNTER → 2023-04-07 13:00 | Outpatient (BNVA) | payer OTHER, SELFPAY | PROVIDERS: Visit Provider Physician Assistant ==

== ENCOUNTER 2023-04-13 06:01 | Inpatient (IN) | payer OTHER, SELFPAY ==
[2023-04-07 12:14] VITALS: BP 133/82; PULSE 98; RESP 16; O2SAT 96; BMI 43.6
[2023-04-07 14:49] LABS: MRSA Nasal PCR NEGATIVE (Negative); SA Nasal PCR NEGATIVE (Negative)
[2023-04-13] VITALS (13 sets, daily range): BP systolic 101–138; BP diastolic 58–93; PULSE 80–91; RESP 14–18; TEMP 36.1–36.4; O2SAT 95–99; BMI 42.9; BMI 46.0
--- NOTE | ~2023-04-13 | XR_ITS ---
EXAMINATION: XR KNEE, RIGHT CLINICAL INFORMATION: The patient is status post total right knee arthroplasty. COMPARISON: None available. TECHNIQUE: Four views of the right knee. FINDINGS: The patient is status post right knee arthroplasty showing good anatomic alignment and no evidence for hardware malfunction. Mild to moderate intra-articular and anterior subcutaneous air is noted. The osseous structures are intact. Multiple anterior skin gertrudis are noted. XR/XR knee RT 2V IMPRESSION: Post surgical changes. No hardware abnormality. No acute fracture.
--- NOTE | 2023-04-13 06:43 | PC.NURSE ---
Preop Vancomycin dose verified by pharmacy and 2G IV brought down to preop by Davi from pharmacy.
[2023-04-13] MEDS: vancomycin/NS 2,000 MG/500 ML PLAST..BAG 250 MG IV ×2 (07:03→23:24)
[2023-04-13] MEDS: Lactated Ringers 1,000 ML 100 ML IVCONT ×3 (07:10→22:31)
--- NOTE | 2023-04-13 07:20 | P.CONAN_ITS ---
Documented by User: Cecile Jansen NP 04/07/23 12:40 HPI - Anesthesia Eval Consult details Narrative: 52yo F for Right Knee Replacement Total No recent illness No CP/SOB with water aerobics Asthma well controlled. Albuterol last used >1 year ago [facility] Active Problems Active Problems: All Active Problems (Updated 04/07/23 @ 11:58 by Bia Francois RN) Bulging of cervical intervertebral disc (Acute) Pain of left calf (Acute) Paraspinal muscle spasm (Acute) Osteoarthritis of left knee (Acute) Sciatica (Acute) Degenerative disc disease (Acute) Left lumbar radiculitis (Acute) Environmental allergies (Acute) Lumbar pain (Acute) Muscle spasms of both lower extremities (Acute) Establishing care with new doctor, encounter for (Acute) Muscle spasm (Acute) Fibromyalgia (Acute) Well woman exam (Acute) Encounter for general adult medical examination with abnormal findings (Acute) Neck Pain (Acute) Major depression, recurrent (Acute) High ankle sprain of left lower extremity (Acute) Numbness and tingling (Acute) Hospital discharge follow-up (Acute) Fall (Acute) Right buttock pain (Acute) Ecchymosis (Acute) Hospital discharge follow-up (Acute) Closed rib fracture (Acute) Pain management (Acute) Right rib fracture (Acute) Serum calcium elevated (Acute) Fracture of ankle, right, closed (Acute) Screening for alcohol problem (Acute) Radiculitis of left cervical region (Acute) Overactive bladder (Acute) Rash (Acute) Sprain of right knee (Acute) Sprain of left hand (Acute) Chest wall contusion (Acute) Osteoarthritis of right knee (Acute) Hematoma (Acute) Internal derangement of right knee (Acute) Sprain of medial collateral ligament of right knee (Acute) Morbid obesity due to excess calories (Acute) Pre-op evaluation (Acute) Diverticulosis (Acute) Tubular adenoma (Acute) IBS (irritable bowel syndrome) (Acute) Chronic GERD (Acute) Osteoarthritis of left knee (Acute) Neuropathy (Acute) Fibromyalgia (Acute) Cholecystitis (Acute) delivery delivered (Acute) Arthritis (Acute) Past Medical History Medical History Anxiety disorder Arthritis Asthma delivery delivered Cholecystitis Chronic back pain Chronic GERD Depression Diverticulosis Fibromyalgia IBS (irritable bowel syndrome) Morbid obesity Neuropathy Numbness and tingling in left arm Osteoarthritis of left knee Tubular adenoma Family History Family History Maternal Grandmother Ovarian ca Other Substance use disorder Family history of problems with anesthesia: Yes (Sister slow to wake) Surgical History Surgical History H/O colonoscopy H/O knee surgery H/O oophorectomy Hx of section History of Problems with Anesthesia: No Social History Social History Housing: House Are you a primary career development facilitator to a significant other at home: No Do you presently have visiting nurse or other home services: No Alcohol intake: current Alcohol intake frequency: holidays/special occasions only Alcohol type: beer Patient Tobacco Use Status: Former Tobacco user Quit Date: 2019 Tobacco use type: Cigarette Years Smoked: 15 years e-Cigarette/Vaping Use: Never Used Use of substances other than those prescribed or required for medical reasons: Yes Substance Use Frequency: Occasionally Have you been hit, kicked, punched, or otherwise hurt by someone within the past year? 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 Cognitive needs: No Hearing needs: No Vision needs: No Meds Allergies Allergy/AdvReac Type Severity Reaction Status Date / Time codeine [Tylenol-Codeine] Allergy Severe Vomiting Verified 04/13/23 06:26 compazine Allergy Severe Seizure Verified 04/13/23 06:26 hydromorphone [From DILAUDID] Allergy Severe VOMITING,DI Verified 04/13/23 06:26 ZZY meperidine [Demerol] Allergy Severe Rash Verified 04/13/23 06:26 amoxicillin [AMOXICILLIN] Allergy Intermediate HIVES, Verified 04/13/23 06:26 THRUSH naproxen AdvReac Intermediate Family Verified 04/13/23 06:26 History of Kidney Disease Home Medications Medication Instructions Recorded Confirmed Last Taken Type ascorbic acid (vitamin C) 500 mg 500 mg PO DAILY 04/07/23 04/13/23 03/30/23 History tablet (Vitamin C) duloxetine 30 mg capsule,delayed 60 mg PO DAILY 04/07/23 04/13/23 04/12/23 History release (Cymbalta) fluticasone propionate 50 2 spray intranasal DAILY 04/07/23 04/13/23 04/12/23 Hi story mcg/actuation nasal spray,suspension (Flonase Allergy Relief) lidocaine 5 % topical patch 1 patch topical DAILY PRN Pain 04/07/23 04/13/23 03/23/23 History multivitamin 1 tab PO DAILY 04/07/23 04/13/23 03/30/23 History omeprazole 40 mg capsule,delayed 40 mg PO DAILY 04/13/23 04/13/23 04/12/23 History release Exam Exam Date and Time: April 07, 2023 1233 Height,Weight and Vital Signs: Height 5 ft 6 in Weight 122.47 kg Last Vital Signs Pulse 98 04/07/23 12:14 Resp 16 04/07/23 12:14 BP 133/82 04/07/23 12:14 Pulse Ox 96 04/07/23 12:14 O2 Del Method Room Air 04/07/23 12:14 Airway Mallampati Class: II TM Dist: >3cm Neck ROM: Limited (turning to right is painful with pinched nerve) Heart: RRR Lungs: CTAB Assessment and Plan Assessment Anesthesia Assessment: Anesthesia Plan Discussed and PAT Visit Final Anesthetic Review Family History of Problems with Anesthesia: Yes (Sister slow to wake) History of Problems with Anesthesia: No Documented by User: Dian Delvalle DO 04/13/23 08:26 [facility] Past Medical History Medical History Anxiety disorder Arthritis Asthma delivery delivered Cholecystitis Chronic back pain Chronic GERD Depression Diverticulosis Fibromyalgia IBS (irritable bowel syndrome) Morbid obesity Neuropathy Numbness and tingling in left arm Osteoarthritis of left knee Tubular adenoma Family History Family History Maternal Grandmother Ovarian ca Other Substance use disorder Family history of problems with anesthesia: Yes (Sister slow to wake) Surgical History Surgical History H/O colonoscopy H/O knee surgery H/O oophorectomy Hx of section History of Problems with Anesthesia: No Social History Social History Housing: House Are you a primary career development facilitator to a significant other at home: No Do you presently have visiting nurse or other home services: No Alcohol intake: current Alcohol intake frequency: holidays/special occasions only Alcohol type: beer Patient Tobacco Use Status: Former Tobacco user Quit Date: 2019 Tobacco use type: Cigarette Years Smoked: 15 years e-Cigarette/Vaping Use: Never Used Use of substances other than those prescribed or required for medical reasons: Yes Substance Use Frequency: Occasionally Have you been hit, kicked, punched, or otherwise hurt by someone within the past year? 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 Cognitive needs: No Hearing needs: No Vision needs: No Meds Allergies Allergy/AdvReac Type Severity Reaction Status Date / Time codeine [Tylenol-Codeine] Allergy Severe Vomiting Verified 04/13/23 06:26 compazine Allergy Severe Seizure Verified 04/13/23 06:26 hydromorphone [From DILAUDID] Allergy Severe VOMITING,DI Verified 04/13/23 06:26 ZZY meperidine [Demerol] Allergy Severe Rash Verified 04/13/23 06:26 amoxicillin [AMOXICILLIN] Allergy Intermediate HIVES, Verified 04/13/23 06:26 THRUSH naproxen AdvReac Intermediate Family Verified 04/13/23 06:26 History of Kidney Disease Home Medications Medication Instructions Recorded Confirmed Last Taken Type ascorbic acid (vitamin C) 500 mg 500 mg PO DAILY 04/07/23 04/13/23 03/30/23 History tablet (Vitamin C) duloxetine 30 mg capsule,delayed 60 mg PO DAILY 04/07/23 04/13/23 04/12/23 History release (Cymbalta) fluticasone propionate 50 2 spray intranasal DAILY 04/07/23 04/13/23 04/12/23 History mcg/actuation nasal spray,suspension (Flonase Allergy Relief) lidocaine 5 % topical patch 1 patch topical DAILY PRN Pain 04/07/23 04/13/23 03/23/23 History multivitamin 1 tab PO DAILY 04/07/23 04/13/23 03/30/23 History omeprazole 40 mg capsule,delayed 40 mg PO DAILY 04/13/23 04/13/23 04/12/23 History release Exam Exam Date and Time: April 13, 2023 0720 Height,Weight and Vital Signs: Height 5 ft 6 in Weight 122.47 kg Last Vital Signs Pulse 98 04/07/23 12:14 Resp 16 04/07/23 12:14 BP 133/82 04/07/23 12:14 Pulse Ox 96 04/07/23 12:14 O2 Del Method Room Air 04/07/23 12:14 Vital Signs Pulse Rate 98 04/07/23 12:14 Respiratory Rate 16 04/07/23 12:14 Blood Pressure 133/82 04/07/23 12:14 Pulse Oximetry 96 04/07/23 12:14 Oxygen Delivery Method Room Air 04/07/23 12:14 Temperature 97.3 F 04/13/23 06:33 Pulse Rate 91 04/13/23 06:33 Respiratory Rate 16 04/13/23 06:33 Blood Pressure 136/93 H 04/13/23 06:33 Pulse Oximetry 99 04/13/23 06:33 Oxygen Delivery Method Room Air 04/13/23 06:33 Height 5 ft 6 in Weight 120.656 kg Airway Mallampati Class: II TM Dist: >3cm Neck ROM: Limited (turning to right is painful with pinched nerve) Loose/Missing/Broken Teeth: No Heart: S1S2 Assessment and Plan Assessment Anesthesia Assessment: Anesthesia Plan Discussed and Chart Reviewed Final Anesthetic Review Family History of Problems with Anesthesia: Yes (Sister slow to wake) History of Problems with Anesthesia: No NPO: Yes ASA Class: III Final Preanesthetic Review: No Changes in Pt Med Stat, Meds/Allgs Chart Reviewed, Consent Obtained/Reviewed and Anes Risks/Benef Reviewed Patient Risk: Intermediate Procedure Risk: Low Anesthetic Plan Anesthetic Plan: MAC:, Spinal, Regional Block (right saphenous block) and Agree w/ Assess. and Plan Disposition: Standard PACU
--- NOTE | 2023-04-13 07:34 | PHA.MEDREC ---
Pharmacy Consult ? Medication Reconciliation Pharmacy has reviewed the medication reconciliation done by RN.
--- NOTE | 2023-04-13 07:44 | MHC.SHP ---
Pre-Procedural Eval Section A Date of Service: 04/13/23 The patient is an INPATIENT: No Changes since office visit: No Cold of Flu in the past 2 weeks, No New Medical Problems, No Changes in Medication and No Patient answered all questions The History & Physical has been completed within 30 days and I have reviewed it.: Yes Section B Chief Complaint: S/P RTKA Allergies: Allergies Allergy/AdvReac Type Severity Reaction Status Date / Time codeine [Tylenol-Codeine] Allergy Severe Vomiting Verified 04/13/23 06:26 compazine Allergy Severe Seizure Verified 04/13/23 06:26 hydromorphone [From DILAUDID] Allergy Severe VOMITING,DI Verified 04/13/23 06:26 ZZY meperidine [Demerol] Allergy Severe Rash Verified 04/13/23 06:26 amoxicillin [AMOXICILLIN] Allergy Intermediate HIVES, Verified 04/13/23 06:26 THRUSH naproxen AdvReac Intermediate Family Verified 04/13/23 06:26 History of Kidney Disease Plan I have reviewed the history and physical and performed a pertinent physical examination on my patient. No changes have occurred unless specified. Time Spent With Patient Time: Total time managing care of this patient today ____ minutes.
--- NOTE | 2023-04-13 09:13 | PM.OP ---
Brief Operative Note Date of Service: 04/13/23 Pre-op diagnosis: right knee OA Post-op diagnosis: same Procedure: Right TKA Implants: Kelby Triathlon cruciate retaining press fit 12/15/12 Surgeon: Red Alva MD Anesthesia: regional and spinal Was an Production Or Plant Engineer used for this Procedure?: Yes Production Or Plant Engineer: Claudine Aldrich Estimated blood loss (mL): 10 Tourniquet time (min): 57 IV fluids (mL): 800 Pathology: other Condition: stable Disposition: PACU
[2023-04-13] MEDS: 0.9 % Sodium Chloride Flush 3 ML SYRINGE IVFLUSH ×2 (11:50→15:39)
[2023-04-13] MEDS: Omeprazole 40 MG CAPSULE.DR PO (11:52)
[2023-04-13] MEDS: Ascorbic Acid 500 MG TABLET PO (11:52)
[2023-04-13] MEDS: oxyCODONE HCl ER 10 MG TAB.ER.12H PO ×2 (11:52→20:33)
[2023-04-13] MEDS: Loratadine 10 MG TABLET PO (11:52)
[2023-04-13] MEDS: Celecoxib 200 MG CAPSULE PO ×2 (11:52→20:33)
[2023-04-13] MEDS: Multivitamin TABLET 1 TAB PO (11:52)
[2023-04-13] MEDS: DULoxetine HCl 60 MG CAPSULE.DR PO (11:53)
[2023-04-13] MEDS: oxyCODONE HCl Immed Release 5 MG TABLET PO (13:37)
[2023-04-13] MEDS: Ketorolac Tromethamine 15 MG/ML VIAL IVPUSH ×2 (15:35→20:31)
[2023-04-13] MEDS: Acetaminophen 1,000 MG/100 ML PIGGYBACK 400 MG IV ×2 (16:07→22:07)
[2023-04-13] MEDS: oxyCODONE HCl Immed Release 5 MG TABLET 10 MG PO ×2 (18:03→23:24)
[2023-04-13] MEDS: Sennosides 8.6 MG TABLET 17.2 MG PO (20:32)
[2023-04-13] MEDS: Docusate Sodium 100 MG CAPSULE PO (20:33)
[2023-04-14] MEDS: Acetaminophen 325 MG TABLET 650 MG PO (01:40)
[2023-04-14] MEDS: Ketorolac Tromethamine 15 MG/ML VIAL IVPUSH ×4 (02:30→19:21)
[2023-04-14 04:00] VITALS: BP 112/62; PULSE 91; RESP 18; TEMP 35.9; O2SAT 95
[2023-04-14] MEDS: Acetaminophen 1,000 MG/100 ML PIGGYBACK 400 MG IV (04:18)
[2023-04-14] MEDS: Omeprazole 40 MG CAPSULE.DR PO (05:47)
[2023-04-14] MEDS: oxyCODONE HCl Immed Release 5 MG TABLET 10 MG PO ×4 (06:31→22:47)
[2023-04-14 06:44] LABS: MANUAL DIFF FLAG NO
[2023-04-14 06:53] LABS: Basophils Percent Auto 0.4 % (0-2); Eosinophils Absolute Auto 0.2 X10*3/uL (0.0-0.4); Eosinophils Percent Auto 1.9 % (0-4); Hematocrit 30.8 % (37.0-47.0); Hemoglobin 10.2 g/dl (12.0-16.0); Imm Gran Abs Auto 0.03 X10*3/uL (0.00-0.03); Imm Gran Pct Auto 0.4 % (0.0-0.4); Lymphocytes Absolute Auto 1.6 X10*3/uL (1.2-4.9); Lymphocytes Percent Auto 19.6 % (20-40); Mean Corpuscular HGB Conc 33.1 g/dl (31.0-35.0); Mean Corpuscular Hemoglobin 31.7 pg (27.0-33.0); Mean Corpuscular Volume 95.7 fL (80.0-98.0); Mean Platelet Volume 10.3 fL (9.4-12.3); Monocytes Absolute Auto 0.5 X10*3/uL (0.1-1.2); Monocytes Percent Auto 6.6 % (2-11); Neutrophils Absolute Auto 5.7 x10*3/uL (2.0-8.3); Neutrophils Percent Auto 71.1 % (45-73); Platelet Count 241 X10*3/uL (160-400); Red Blood Count 3.22 X10*6/uL (4.20-5.50)
[2023-04-14 07:07] LABS: Anion Gap 14 (12-20); Blood Urea Nitrogen 24 mg/dL (9-16); Calcium 8.8 mg/dL (8.4-10.2); Carbon Dioxide 20 mmol/L (22-29); Chloride 107 mmol/L (96-108); Creatinine Clr Calc Pharmacy 109.2; Estimated Glomerular Filt Rate > 60; Glucose Fasting 93 mg/dL (60-99); Sodium 137 mmol/L (135-145)
[2023-04-14 07:09] VITALS: BP 126/60; PULSE 98; RESP 18; TEMP 36.6; O2SAT 96
[2023-04-14] MEDS: Loratadine 10 MG TABLET PO (07:47)
[2023-04-14] MEDS: Multivitamin TABLET 1 TAB PO (07:47)
[2023-04-14] MEDS: DULoxetine HCl 60 MG CAPSULE.DR PO (07:47)
[2023-04-14] MEDS: Celecoxib 200 MG CAPSULE PO ×2 (07:47→19:23)
[2023-04-14] MEDS: Ascorbic Acid 500 MG TABLET PO (07:48)
[2023-04-14] MEDS: Lactated Ringers 1,000 ML 100 ML IVCONT (07:52)
--- NOTE | 2023-04-14 09:16 | P.PNOP_ITS ---
Subjective Subjective Date of Service: 04/14/23 Interval history: POD 1 s/p rt TKA no overnight events resting in bed denies cp,sob,palptations Physical Exam Vital Signs: Vital Signs: Last Vital Signs Temp 97.9 F 04/14/23 07:09 Pulse 98 04/14/23 07:09 Resp 18 04/14/23 07:09 BP 126/60 04/14/23 07:09 Pulse Ox 96 04/14/23 07:09 O2 Del Method Room Air 04/14/23 07:09 BMI result Body Mass Index 46.0 Const: General: cooperative, healthy appearing and no acute distress Resp: Effort & Inspection: normal respiratory effort and able to speak in complete sentences Cardio: Rate: regular rate Peripheral pulses: Peripheral pulses 2+ throughout GI: Palpation (GI): Soft to palpation Skin: General skin exam: no rashes or lesions noted Extrem: Other: Right knee bandage clean dry and intact. Sherry intact. No erythema or joint effusion. Calf supple nontender. Neurovascularly intact. Procedures Date of Service Date of Service: 04/14/23 Progress Note: A&P Assessment and plan (1) History of total right knee replacement: Status: Acute Assessment and Plan: * Continue pain mgmnt * Begin lovenox for dvt ppx * begin PT for RT TKA * Dispo planning-Pending PT eval, pain mgmnt Time Spent With Patient Time: Total time managing care of this patient today ____ minutes. Quality Stroke Does the patient have a stroke diagnosis?: No VTE Prior VTE?: No VTE Risk Level:: Surgical - very high VTE Device Contraindication: N/A - Device Ordered VTE Drug Contraindication: N/A - Med Ordered
--- NOTE | 2023-04-14 09:37 | MHC.CM.PN ---
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
[2023-04-14] MEDS: Enoxaparin Sodium 40 MG/0.4 ML SYRINGE SUBCUT (09:51)
--- NOTE | 2023-04-14 11:47 | HO.POSTANES ---
Post Anesthesia Evaluation Post Anesthesia Evaluation Date of Service: 04/14/23 Vital Signs: Vital Signs Temp Pulse Resp BP Pulse Ox O2 Del Method 04/14/23 07:09 97.9 F 98 18 126/60 96 Room Air 04/14/23 04:00 96.7 F L 91 18 112/62 95 Room Air Anesthesia: Spinal and Nerve Block Mental Status: Awake Pain Control: Satisfactory Nausea/Vomiting: None Hydration: Adequate Anesthesia-Related Issues: No Anes. Related Issues
--- NOTE | 2023-04-14 12:42 | PM.IMHP ---
History of Present Illness Date of Service: 04/14/23 Chief Complaint: post knee surgery 52 year old female with OA, no chronic med issues and underwent elective knee surgery and is doing well post and look forward to going home later today. Has no acute complaint and pain is controlled Review of Systems Review of Systems: Gen: no fever Resp: no sob, no cough CV: no chest, no HARDIN, no leg edema GI: No n/v, no abd pain Neuro: No confusion PMFSH Medical History Anxiety disorder Arthritis Asthma delivery delivered Cholecystitis Chronic back pain Chronic GERD Depression Diverticulosis Fibromyalgia IBS (irritable bowel syndrome) Morbid obesity Neuropathy Numbness and tingling in left arm Osteoarthritis of left knee Tubular adenoma Family History Maternal Grandmother Ovarian ca Other Substance use disorder Surgical History H/O colonoscopy H/O knee surgery H/O oophorectomy Hx of section Social History Household Members: Spouse and Children Housing: House Are you a primary customer care voice consultant to a significant other at home: No Do you presently have visiting nurse or other home services: No Alcohol intake: current Alcohol intake frequency: holidays/special occasions only Alcohol type: beer Patient Tobacco Use Status: Former Tobacco user Quit Date: 2019 Tobacco use type: Cigarette Years Smoked: 15 years Smoked in Last 30 Days: No e-Cigarette/Vaping Use: Never Used Patient Interested in Nicotine Replacement: No Patient Given Instructions on How to Stop Smoking: No Use of substances other than those prescribed or required for medical reasons: Yes Substance Use Type: Marijuana Substance Use Type Other:: CBD oil Substance Use Frequency: Occasionally Last Used Substance: Just Prior to Admission Currently Displaying Signs/Symptoms of Drug Intoxication Withdrawal: No Any prior treatment program specific to substance use: No Have you been hit, kicked, punched, or otherwise hurt by someone within the past year? If so, by whom?: No Do you feel safe in your current relationship?: Yes Is there a partner from a previous relationship who is making you feel unsafe now?: No Are you made to feel afraid or neglected: No Are you DNR?: No Advance Directives: Yes Advance Directives Information Provided: No Advance Directives on File: Yes Advance Directives Date on File: 04/13/23 Do you have thoughts of harming others: None Do you have a plan to hurt others: No Plan Recently lost weight without trying: No Eating poorly because of decreased appetite: No Nutrition Risks: No Nutritional Risk Patient : No : No Poor oral hygiene: No service: No 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al status: unemployed 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 Cognitive needs: No Hearing needs: No Vision needs: No Meds Allergies Allergy/AdvReac Type Severity Reaction Status Date / Time codeine [Tylenol-Codeine] Allergy Severe Vomiting Verified 04/13/23 06:26 compazine Allergy Severe Seizure Verified 04/13/23 06:26 hydromorphone [From DILAUDID] Allergy Severe VOMITING,DI Verified 04/13/23 06:26 ZZY meperidine [Demerol] Allergy Severe Rash Verified 04/13/23 06:26 amoxicillin [AMOXICILLIN] Allergy Intermediate HIVES, Verified 04/13/23 06:26 THRUSH naproxen AdvReac Intermediate Family Verified 04/13/23 06:26 History of Kidney Disease Active Medications: Current Medications Acetaminophen (Acetaminophen 325 Mg Tablet) 650 mg PO Q6H PRN PRN Reason: Pain, Mild (Pain Scale 1-3) Last Admin: 04/14/23 01:40 Dose: 650 mg Albuterol Sulfate (Albuterol Sulfate 90 Mcg 8 Gm Inhaler) 2 puff INHALE Q6H PRN PRN Reason: shortness of breath or wheezing Ascorbic Acid (Ascorbic Acid 500 Mg Tablet) 500 mg PO DAILY [facility] Last Admin: 04/14/23 07:48 Dose: 500 mg Celecoxib (Celecoxib 200 Mg Capsule) 200 mg PO BID [facility] Last Admin: 04/14/23 07:47 Dose: 200 mg Docusate Sodium (Docusate Sodium 100 Mg Capsule) 100 mg PO BEDTIME [facility] Last Admin: 04/13/23 20:33 Dose: 100 mg Duloxetine HCl (Duloxetine Hcl 60 Mg Capsule.Dr) 60 mg PO DAILY [facility] Last Admin: 04/14/23 07:47 Dose: 60 mg Enoxaparin Sodium (Enoxaparin Sodium 40 Mg/0.4 Ml Syringe) 40 mg SUBCUT Q24H [facility] Last Admin: 04/14/23 09:51 Dose: 40 mg Fluticasone Propionate (Fluticasone Propionate Nasal 16 Gm Bagley) 2 spray NOSTRIL-B DAILY [facility] Last Admin: 04/14/23 10:25 Dose: Not Given Ketorolac Tromethamine (Ketorolac Tromethamine 15 Mg/Ml Vial) 15 mg IVPUSH Q6H [facility] Last Admin: 04/14/23 10:16 Dose: 15 mg Lidocaine (Lidocaine 4 % Patch Adh..Patch) 1 patch TRANSDERMA DAILY PRN PRN Reason: Pain Loratadine (Loratadine 10 Mg Tablet) 10 mg PO DAILY [facility] Last Admin: 04/14/23 07:47 Dose: 10 mg Multivitamins/Vitamin C (Multivitamin Tablet) 1 tab PO DAILY [facility] Last Admin: 04/14/23 07:47 Dose: 1 tab Pat Own Med( Tolterodine [Detrol] 2 Mg Tablet) 1 mg PO BID [facility] Last Admin: 04/14/23 07:48 Dose: 1 mg Omeprazole (Omeprazole 40 Mg Capsule.Dr) 40 mg PO DAILY@0630 [facility] Last Admin: 04/14/23 05:47 Dose: 40 mg Ondansetron HCl (Ondansetron Hcl 4 Mg/2 Ml Vial) 4 mg IVPUSH Q8H PRN PRN Reason: Nausea and Vomiting Oxycodone HCl (Oxycodone Hcl Er 10 Mg Tab.Er.12h) 10 mg PO BID [facility] Last Admin: 04/14/23 09:21 Dose: Not Given Oxycodone HCl (Oxycodone Hcl Immed Release 5 Mg Tablet) 10 mg PO Q4H PRN PRN Reason: Pain, Moderate(Pain Scale 4-6) Last Admin: 04/14/23 11:50 Dose: 10 mg Pharmacy Consult (Consult Rx Vancomycin Dosing) 1 each MISCELLANE DAILY PRN PRN Reason: Consult order Senna (Sennosides 8.6 Mg Tablet) 17.2 mg PO BEDTIME [facility] Last Admin: 04/13/23 20:32 Dose: 17.2 mg Sodium Chloride (0.9 % Sodium Chloride Flush 3 Ml Syringe) 3 ml IVFLUSH QSHIFT [facility] Last Admin: 04/14/23 07:55 Dose: Not Given Home Medications Medication Instructions Recorded Confirmed Last Taken Type ascorbic acid (vitamin C) 500 mg 500 mg PO DAILY 04/07/23 04/13/23 03/30/23 History tablet (Vitamin C) duloxetine 30 mg capsule,delayed 60 mg PO DAILY 04/07/23 04/13/23 04/12/23 History release (Cymbalta) fluticasone propionate 50 2 spray intranasal DAILY 04/07/23 04/13/23 04/12/23 History mcg/actuation nasal spray,suspension (Flonase Allergy Relief) lidocaine 5 % topical patch 1 patch topical DAILY PRN Pain 04/07/23 04/13/23 03/23/23 History multivitamin 1 tab PO DAILY 04/07/23 04/13/23 03/30/23 History omeprazole 40 mg capsule,delayed 40 mg PO DAILY 04/13/23 04/13/23 04/12/23 History release Physical Exam Vital Signs and Narrative: Vital Signs: Last Vital Signs Temp 97.9 F 04/14/23 07:09 Pulse 98 04/14/23 07:09 Resp 18 04/14/23 07:09 BP 126/60 04/14/23 07:09 Pulse Ox 96 04/14/23 07:09 O2 Del Method Room Air 04/14/23 07:09 BMI result Body Mass Index 46.0 Const: Other: General: AO X 3, no acute distress Resp: CTA bilateral CVS: S1,S2,RRR GI: +BS, NT, no distention Skin: No rash, dressing in place Neuro: motor grossly intact Psych: appropriate affect Results Labs 04/14/23 05:43 04/14/23 05:43 Labs: Laboratory Results - last 24 hr 04/14/23 04/14/23 05:43 05:43 MCV 95.7 MCH 31.7 MCHC 33.1 RDW 13.0 Plt Count 241 D MPV 10.3 Immature Gran % (Auto) 0.4 Neut % (Auto) 71.1 Lymph % (Auto) 19.6 L [place] % (Auto) 6.6 Eos % (Auto) 1.9 Baso % (Auto) 0.4 Lymph # (Auto) 1.6 [place] # (Auto) 0.5 Eos # (Auto) 0.2 Baso # (Auto) 0.0 Abs Immat Gran (auto) 0.03 Absolute Neuts (auto) 5.7 Absolute Nucleated RBC 0.000 Nucleated RBC % (auto) 0.0 Anion Gap 14 Estim Creat Clear Calc 109.2 Estimated GFR > 60 Fasting Glucose 93 Calcium 8.8 D Assessment and Plan (1) History of total right knee replacement: Status: Acute Plan 52 year old female with OA, no chronic med issues and underwent elective knee surgery and is doing well post and look forward to going home later today. Has no acute complaint and pain is controlle plan: continue current post op care, given no acute medical issues, i am singing off. Thanks Time Spent With Patient Time: Total time managing care of this patient today ____ minutes. Quality Stroke Does the patient have a stroke diagnosis?: No VTE Prior VTE?: No VTE Risk Level:: Surgical - very high VTE Device Contraindication: N/A - Device Ordered VTE Drug Contraindication: N/A - Med Ordered
--- NOTE | 2023-04-14 12:45 | P.DS_ITS ---
DS: Providers Provider Date of Service: 05/09/23 Date of admission: 04/13/23 06:01 Primary care physician: Juliet Torres MD Consults: 04/13/23 11:24 Consult to Hospitalist Routine Comment: Consulting Provider: Hospitalist Reason For Exam: Routine medical management DS: Diagnosis Discharge Diagnosis (1) History of total right knee replacement: Status: Acute DS: Summary Hospital Course Hospital Course: The patient underwent a successful Right total knee arthroplasty on, was transferred to PACU and then to the floor to recover. During their stay, their vitals were stable, afebrile at 97.8 . Labs were unremarkable, H/H 10.6/31.9 . POD 1 she was started on lovenox for DVT ppx, they also received Physical Therapy services twice a day. Physical therapy should include gait training, ROM to tolerance and quad strength. He is WBAT. Prior to discharge, her dressing was changed, incision clean dry and intact, new Aquacel dressing applied. The Aquacel dressing should remain intact and dry at all times. Any concerns with the dressing, please contact orthopedic office. No showering. The plan is to be discharged home with vna services Time Spent with Patient Time attestation: Total time managing care of this patient today ____ minutes. Discharge coordination time: Greater than 30 minutes Quality: Safe Use of Opioids Does Pt have an Active Cancer Diagnosis on the Problem List?: No Quality: Stroke Does the patient have a stroke diagnosis?: No Physical Exam Vital Signs: Vital Signs: Last Vital Signs Temp 97.9 F 04/14/23 07:09 Pulse 98 04/14/23 07:09 Resp 18 04/14/23 07:09 BP 126/60 04/14/23 07:09 Pulse Ox 96 04/14/23 07:09 O2 Del Method Room Air 04/14/23 07:09 BMI result Body Mass Index 46.0 DS: Data Data Completed and Pending Pending studies at discharge: Pending at discharge 04/13/23 09:10 Surgical [PTH] Routine Labs on day of discharge: Laboratory Results - last 24 hr 04/14/23 04/14/23 05:43 05:43 WBC 8.0 RBC 3.22 L D Hgb 10.2 L D Hct 30.8 L D MCV 95.7 MCH 31.7 MCHC 33.1 RDW 13.0 Plt Count 241 D MPV 10.3 Immature Gran % (Auto) 0.4 Neut % (Auto) 71.1 Lymph % (Auto) 19.6 L [place] % (Auto) 6.6 Eos % (Auto) 1.9 Baso % (Auto) 0.4 Lymph # (Auto) 1.6 [place] # (Auto) 0.5 Eos # (Auto) 0.2 Baso # (Auto) 0.0 Abs Immat Gran (auto) 0.03 Absolute Neuts (auto) 5.7 Absolute Nucleated RBC 0.000 Nucleated RBC % (auto) 0.0 Sodium 137 Potassium 4.0 Chloride 107 Carbon Dioxide 20 L Anion Gap 14 BUN 24 H Creatinine 0.83 Estim Creat Clear Calc 109.2 Estimated GFR > 60 Fasting Glucose 93 Calcium 8.8 D Discharge Plan Discharge Anticipated Discharge Date/Time: 04/15/23 09:34 Patient Disposition: Home Health Service Discharge Diagnosis: rt tka Referrals: Aleta CHAND [Outside] - 1 Week Claudine Aldrich PA-C [Physician Manager [employer]] - 2 Weeks (04/28/23 14:30 [facility] [place] [facility] Claudine Aldrich PA-C) Discharge Medications: New acetaminophen 325 mg Tablet 650 mg PO Q6H PRN (Reason: Pain, Mild (Pain Scale 1-3)) 30 Days Qty: 240 0RF enoxaparin 40 mg/0.4 mL Syringe 40 mg subcut Q24H 42 Days Qty: 16.8 0RF Continued albuterol sulfate [ProAir HFA] 90 mcg/actuation HFA aerosol inhaler 2 puff inhalation Q6H PRN (Reason: shortness of breath or wheezing) 90 Days Qty: 8.5 0RF Rx Instructions: dispense which ever albuterol inhaler is covered under patients insurance celecoxib [Celebrex] 200 mg capsule 200 mg PO BID 30 Days Qty: 60 3RF loratadine 10 mg tablet 10 mg PO DAILY 90 Days Qty: 90 0RF tolterodine [Detrol] 2 mg tablet 2 mg PO BID 90 Days Qty: 180 0RF lidocaine 5 % adhesive patch,medicated 1 patch topical DAILY PRN (Reason: Pain) Rx Instructions: leave on most painful area for up to 12 hrs fluticasone propionate [Flonase Allergy Relief] 50 mcg/actuation spray,suspension 2 spray intranasal DAILY Rx Instructions: administer into each nostril duloxetine [Cymbalta] 30 mg capsule,delayed release(DR/EC) 60 mg PO DAILY multivitamin Tablet 1 tab PO DAILY ascorbic acid (vitamin C) [Vitamin C] 500 mg Tablet 500 mg PO DAILY omeprazole 40 mg capsule,delayed release(DR/EC) 40 mg PO DAILY pantoprazole 20 mg tablet,delayed release (DR/EC) 20 mg PO DAILY Qty: 90 1RF docusate sodium 100 mg capsule 100 mg PO BEDTIME Qty: 90 3RF sennosides [Natural Senna Laxative] 8.6 mg tablet 17.2 mg PO BEDTIME Qty: 180 3RF No Action oxycodone 5 mg tablet 5 mg PO Q8H PRN (Reason: Pain, Moderate(Pain Scale 4-6)) 10 Days Qty: 30 0RF Rx Instructions: Partial Fill upon patient request. Discharge Orders: Discharge Order (Routine); Ordered 04/15/23 Ordered By: Selene Farris Diet: Regular diet Activity on Discharge: Use cane or walker Stand Alone Forms: Patient Portal Discharge page Care Plan Goals: Restore function of joint Health Concerns: none Plan of Treatment: Physical Therapy Pain management DVT prophylaxis Assessment: Physical Therapy for Total knee arthroplasty: WBAT, gait training, ROM 0-12, quad strength * Limit stair climbing * No showering, no tub bath-keep dressing clean, dry and intact * No driving x6 weeks * Continue lovenox once a day x 6 weeks * Follow up with [facility] Orthopedics in 2 weeks: Discharge Date/Time: 04/15/23 12:00
[2023-04-14] MEDS: 0.9 % Sodium Chloride Flush 3 ML SYRINGE IVFLUSH (14:52)
[2023-04-14 15:07] VITALS: BP 130/70; PULSE 86; RESP 18; TEMP 36.8; O2SAT 96
--- NOTE | 2023-04-14 15:57 | MHC.CM.PN ---
PLAN IS HOME TOMORROW (04/15/23) WITH [facility] IS ASKING FOR O.T. TO BE ADDED TO OPEN THE CARE. ORTHO TO BE MADE AWARE.
[2023-04-14] MEDS: Sennosides 8.6 MG TABLET 17.2 MG PO (19:22)
[2023-04-14] MEDS: oxyCODONE HCl ER 10 MG TAB.ER.12H PO (19:22)
[2023-04-14] MEDS: Docusate Sodium 100 MG CAPSULE PO (19:23)
[2023-04-14 19:30] VITALS: BP 127/70; PULSE 91; RESP 18; TEMP 36.6; O2SAT 99
[2023-04-15] MEDS: Acetaminophen 325 MG TABLET 650 MG PO (00:27)
[2023-04-15] MEDS: 0.9 % Sodium Chloride Flush 3 ML SYRINGE IVFLUSH ×2 (00:28→08:29)
[2023-04-15 03:05] VITALS: BP 129/62; PULSE 90; RESP 16; TEMP 36; O2SAT 93
[2023-04-15] MEDS: Ketorolac Tromethamine 15 MG/ML VIAL IVPUSH ×2 (03:06→08:27)
[2023-04-15] MEDS: Omeprazole 40 MG CAPSULE.DR PO (06:00)
[2023-04-15 06:55] LABS: MANUAL DIFF FLAG NO
[2023-04-15 06:58] LABS: Basophils Percent Auto 0.7 % (0-2); Eosinophils Absolute Auto 0.4 X10*3/uL (0.0-0.4); Eosinophils Percent Auto 6.8 % (0-4); Hematocrit 31.9 % (37.0-47.0); Hemoglobin 10.6 g/dl (12.0-16.0); Imm Gran Abs Auto 0.02 X10*3/uL (0.00-0.03); Imm Gran Pct Auto 0.3 % (0.0-0.4); Lymphocytes Absolute Auto 1.5 X10*3/uL (1.2-4.9); Lymphocytes Percent Auto 24.7 % (20-40); Mean Corpuscular HGB Conc 33.2 g/dl (31.0-35.0); Mean Corpuscular Volume 96.4 fL (80.0-98.0); Mean Platelet Volume 9.5 fL (9.4-12.3); Monocytes Absolute Auto 0.4 X10*3/uL (0.1-1.2); Neutrophils Absolute Auto 3.6 x10*3/uL (2.0-8.3); Neutrophils Percent Auto 60.5 % (45-73); Platelet Count 217 X10*3/uL (160-400); Red Blood Count 3.31 X10*6/uL (4.20-5.50); Red Cell Distribution Width 13.2 % (11.0-16.0)
[2023-04-15 07:23] LABS: Anion Gap 12 (12-20); Blood Urea Nitrogen 18 mg/dL (9-16); Calcium 8.9 mg/dL (8.4-10.2); Carbon Dioxide 24 mmol/L (22-29); Chloride 109 mmol/L (96-108); Creatinine Clr Calc Pharmacy 109.2; Estimated Glomerular Filt Rate > 60; Glucose Fasting 86 mg/dL (60-99); Potassium 4.2 mmol/L (3.3-5.1); Sodium 141 mmol/L (135-145)
[2023-04-15 07:29] VITALS: BP 151/76; PULSE 89; RESP 16; TEMP 36.6; O2SAT 95
[2023-04-15] MEDS: Ascorbic Acid 500 MG TABLET PO (08:26)
[2023-04-15] MEDS: oxyCODONE HCl ER 10 MG TAB.ER.12H PO (08:26)
[2023-04-15] MEDS: Multivitamin TABLET 1 TAB PO (08:26)
[2023-04-15] MEDS: DULoxetine HCl 60 MG CAPSULE.DR PO (08:26)
[2023-04-15] MEDS: Loratadine 10 MG TABLET PO (08:26)
[2023-04-15] MEDS: Enoxaparin Sodium 40 MG/0.4 ML SYRINGE SUBCUT (08:26)
[2023-04-15] MEDS: Fluticasone Propionate Nasal 16 GM SPRAY 2 SPRAY NOSTRIL-B (08:27)
[2023-04-15] MEDS: Celecoxib 200 MG CAPSULE PO (08:27)
[2023-04-15 09:25] VITALS: BP 151/76; PULSE 89; O2SAT 95
--- NOTE | 2023-04-15 09:48 | PM.DS ---
DS: Providers Provider Date of Service: 04/15/23 Date of admission: 04/13/23 06:01 Primary care physician: Juliet Torres MD Consults: 04/13/23 11:24 Consult to Hospitalist Routine Comment: Consulting Provider: Hospitalist Reason For Exam: Routine medical management DS: Diagnosis Discharge Diagnosis (1) History of total right knee replacement: Status: Acute DS: Summary Hospital Course Hospital Course: The patient underwent a successful Right total knee arthroplasty on, was transferred to PACU and then to the floor to recover. During their stay, their vitals were stable, afebrile at 97.8 . Labs were unremarkable, H/H 10.6/31.9 . POD 1 she was started on lovenox for DVT ppx, they also received Physical Therapy services twice a day. Physical therapy should include gait training, ROM to tolerance and quad strength. He is WBAT. Prior to discharge, her dressing was changed, incision clean dry and intact, new Aquacel dressing applied. The Aquacel dressing should remain intact and dry at all times. Any concerns with the dressing, please contact orthopedic office. No showering. The plan is to be discharged home with vna services Time Spent with Patient Time attestation: Total time managing care of this patient today ____ minutes. Discharge coordination time: Less than 30 minutes Quality: Safe Use of Opioids Does Pt have an Active Cancer Diagnosis on the Problem List?: No Quality: Stroke Does the patient have a stroke diagnosis?: No Physical Exam Vital Signs: Vital Signs: Last Vital Signs Temp 97.8 F 04/15/23 07:29 Pulse 89 04/15/23 09:25 Resp 16 04/15/23 07:29 BP 151/76 H 04/15/23 09:25 Pulse Ox 95 04/15/23 09:25 O2 Del Method Room Air 04/15/23 07:29 BMI result Body Mass Index 46.0 Const: General: cooperative, healthy appearing and no acute distress Resp: Effort & Inspection: normal respiratory effort and able to speak in complete sentences Cardio: Rate: regular rate Peripheral pulses: Peripheral pulses 2+ throughout GI: Palpation (GI): Soft to palpation Skin: General skin exam: no rashes or lesions noted Extrem: Other: Right knee incision clean dry and intact. Sherry intact. No erythema or joint effusion. Calf supple nontender. Neurovascularly intact. DS: Data Data Completed and Pending Pending studies at discharge: Pending at discharge 04/13/23 09:10 Surgical [PTH] Routine Labs on day of discharge: Laboratory Results - last 24 hr 04/15/23 04/15/23 06:45 06:45 WBC 6.0 RBC 3.31 L Hgb 10.6 L Hct 31.9 L MCV 96.4 MCH 32.0 MCHC 33.2 RDW 13.2 Plt Count 217 MPV 9.5 Immature Gran % (Auto) 0.3 Neut % (Auto) 60.5 Lymph % (Auto) 24.7 [place] % (Auto) 7.0 Eos % (Auto) 6.8 H Baso % (Auto) 0.7 Lymph # (Auto) 1.5 [place] # (Auto) 0.4 Eos # (Auto) 0.4 Baso # (Auto) 0.0 Abs Immat Gran (auto) 0.02 Absolute Neuts (auto) 3.6 Absolute Nucleated RBC 0.000 Nucleated RBC % (auto) 0.0 Sodium 141 Potassium 4.2 Chloride 109 H Carbon Dioxide 24 Anion Gap 12 BUN 18 H Creatinine 0.83 Estim Creat Clear Calc 109.2 Estimated GFR > 60 Fasting Glucose 86 Calcium 8.9 Discharge Plan Discharge Anticipated Discharge Date/Time: 04/15/23 09:34 Patient Disposition: Home Health Service Discharge Diagnosis: rt tka Referrals: Claudine Aldrich PA-C [Physician Improvement Specialist] - 2 Weeks (04/28/23 14:30 [facility] [place] [facility] Claudine Aldrich PA-C) Discharge Medications: New oxycodone 10 mg tablet 10 mg PO Q4H PRN (Reason: Pain, Moderate(Pain Scale 4-6)) 7 Days Qty: 42 0RF Rx Instructions: Partial Fill upon patient request. acetaminophen 325 mg Tablet 650 mg PO Q6H PRN (Reason: Pain, Mild (Pain Scale 1-3)) 30 Days Qty: 240 0RF enoxaparin 40 mg/0.4 mL Syringe 40 mg subcut Q24H 42 Days Qty: 16.8 0RF Continued albuterol sulfate [ProAir HFA] 90 mcg/actuation HFA aerosol inhaler 2 puff inhalation Q6H PRN (Reason: shortness of breath or wheezing) 90 Days Qty: 8.5 0RF Rx Instructions: dispense which ever albuterol inhaler is covered under patients insurance celecoxib [Celebrex] 200 mg capsule 200 mg PO BID 30 Days Qty: 60 3RF loratadine 10 mg tablet 10 mg PO DAILY 90 Days Qty: 90 0RF tolterodine [Detrol] 2 mg tablet 2 mg PO BID 90 Days Qty: 180 0RF lidocaine 5 % adhesive patch,medicated 1 patch topical DAILY PRN (Reason: Pain) Rx Instructions: leave on most painful area for up to 12 hrs fluticasone propionate [Flonase Allergy Relief] 50 mcg/actuation spray,suspension 2 spray intranasal DAILY Rx Instructions: administer into each nostril duloxetine [Cymbalta] 30 mg capsule,delayed release(DR/EC) 60 mg PO DAILY multivitamin Tablet 1 tab PO DAILY ascorbic acid (vitamin C) [Vitamin C] 500 mg Tablet 500 mg PO DAILY omeprazole 40 mg capsule,delayed release(DR/EC) 40 mg PO DAILY pantoprazole 20 mg tablet,delayed release (DR/EC) 20 mg PO DAILY Qty: 90 1RF docusate sodium 100 mg capsule 100 mg PO BEDTIME Qty: 90 3RF sennosides [Natural Senna Laxative] 8.6 mg tablet 17.2 mg PO BEDTIME Qty: 180 3RF Discharge Orders: Discharge Order (Routine); Ordered 04/15/23 Ordered By: Selene Farris Diet: Regular diet Activity on Discharge: Use cane or walker Stand Alone Forms: Patient Portal Discharge page Care Plan Goals: Restore function of joint Health Concerns: none Plan of Treatment: Physical Therapy Pain management DVT prophylaxis Assessment: Physical Therapy for Total knee arthroplasty: WBAT, gait training, ROM 0-12, quad strength Limit stair climbing No showering, no tub bath-keep dressing clean, dry and intact No driving x6 weeks Continue lovenox once a day x 6 weeks Follow up with [facility] [place] [facility] in 2 weeks:
--- NOTE | 2023-04-15 09:50 | W.MHC.F2F ---
Service Date Service Date: 04/15/23 Encounter Date of encounter: 04/15/23 Reasons for Services Signs and symptoms assessed: Right knee pain , swelling, diff with ambulation, weakness. Reason for physical therapy: home safety and mobility, restore joint function, gait/transfer training, ADL training and energy conservation Reason for occupational therapy: home safety and mobility, therapeutic exercises, restore joint function, gait/transfer training, ADL training and energy conservation Homebound: Leaving the home is medically contraindicated at this time without the asist of a device and/or another person due th the listed conditions above and below. Reason homebound: unsteady gait / fall risk, pain with ambulation, poor balance / fall risk and unable to drive Certification: Based on the above findings, I certify that this patient is confined to the home and needs intermittent retirement care, physical therapy and/or speech therapy, or continues to need occupational therapy. The patient is under my care, and I have initiated the establishment of the plan of care. The patient will be followed by a physician who will periodically review the plan of care. Time Spent With Patient Time: Total time managing care of this patient today ____ minutes.
--- NOTE | 2023-04-15 10:48 | MHC.CM.PN ---
HOME TODAY WITH [facility] RN AWARE OF PLAN.
--- NOTE | 2023-04-20 10:34 | P.OP_ITS ---
Operative Note Operative Note Date of Service: 04/13/23 Narrative: Date of Service: 04/13/23 Pre-op diagnosis: right knee OA Post-op diagnosis: same Procedure: Right TKA Implants: Artesian Triathlon cruciate retaining press fit 12/15/12 Surgeon: Red Alva MD Anesthesia: regional and spinal Was an Pay Station Collector used for this Procedure?: Yes Pay Station Collector: Claudine Aldrich Estimated blood loss (mL): 10 Tourniquet time (min): 57 IV fluids (mL): 800 Pathology: other Condition: stable Disposition: PACU Procedure in detail: The patient was brought to the operating room and prepped and draped in standard sterile fashion. A time-out was called to identify proper site proper procedure proper surgeon and IV antibiotics were administered. 1 g of IV tranexamic acid was administered. I began by making a midline incision to the retinaculum and performed a medial parapatellar arthrotomy. The patella was translated laterally and the knee was flexed up. There was medial comaprtment eburnation . I performed a small medial peel and resected the infrapatellar fat pad. Oakwood's line was then used to drill my intramedullary femoral guide and my distal femur cut of 10 mm was made in 5 degrees of valgus while protecting the soft tissues. I then measured a # 4 femur and placed my cutting guide and made my anterior posterior and chamfer cuts in 3deg ER while protecting the soft tissues at all times. Once I was satisfied with my cuts I turned my attention to the tibia. I removed the meniscus medially and laterally and , using an external cutting guide, in line with the tibial crest and the third ray, I made my distal tibial cut in 3 deg slope of while protecting the PCL the posterior soft tissues at all times. An extension block was used to confirm appropriate amount of bony resection. I then sized a #5 tibia and once I was satisfied that there was complete tibial coverage I placed my trial and with the trial femur in place took the knee through range of motion. I was satisfied with the extension and flexion as well as the stability and balance at 0, 30 and 90 degrees. I then turned my attention to the patella where I removed 1 cm from the undersurface of the patella and then trialed a32a patellar button. Again the knee was taken through range of motion I was satisfied with the tracking. I then returned to the femur and drilled my femoral lug holes and prepared the tibia. A femoral bone plug was placed and the knee was irrigated copiously. I then press fit the patella, tibia and femur in standard fashion. I trialed different inserts until I selected a #13 insert. The final insert was placed and a 3 minutes iodine soak with local TXA was performed. A Werewolf cautery wand was used to maintain hemostasis over the capsule and meniscal beds, the gutters and peripatellar soft tissues. The knee was then closed with a running Quill suture, a 3 0 Vicryl and gertrudis on the skin. Patient was then placed in sterile dressing and brought to recovery room in stable condition there were no known complications.
== END 2023-04-15 12:00 | disposition home health service (06) | DRG 326 ==
LOC: HO.SSSA 06:04 → HO.S3 10:38
PROVIDERS: Physician Assistant; Admitting Provider Orthopaedic Surgery; PCP Internal Medicine; Visit Provider Orthopaedic Surgery
PROC: 0SRC0JA Replacement of Right Knee Joint with Synthetic Substitute, Uncemented, Open Approach (ICD-10-PCS; CPT 27447; principal; 2023-04-13 07:30)
DX: M17.11 Unilateral primary osteoarthritis, right knee (principal); G89.18 Other acute postprocedural pain; M79.7 Fibromyalgia; Z87.891 Personal history of nicotine dependence; Z79.899 Other long term (current) drug therapy
CPT/HCPCS: 27447; 36415; 73560; 80048; 85025; 86850; 86900; 86901; 87640; 87641; 88305; 88311; 97110; 97116; 97162; C1776; J0131; J1100; J1650; J1885; J2250; J2371; J2405; J3010; J3370

== ENCOUNTER → 2023-04-13 06:01 | Outpatient (BNV) | payer OTHER, SELFPAY | PROVIDERS: Admitting Provider Orthopaedic Surgery; PCP Internal Medicine; Visit Provider Internal Medicine | DX: Z96.651 Presence of right artificial knee joint (principal); Z47.89 Encounter for other orthopedic aftercare | CPT/HCPCS: 99024; 99212 ==

== ENCOUNTER → 2023-04-13 06:01 | Outpatient (BNV) | payer OTHER, SELFPAY | PROVIDERS: Admitting Provider Orthopaedic Surgery; PCP Internal Medicine; Visit Provider Orthopaedic Surgery | DX: M17.11 Unilateral primary osteoarthritis, right knee (principal) | CPT/HCPCS: 27447; 99231; 99238; G0180 ==

== ENCOUNTER 2023-04-22 12:53 | Outpatient (AMB) | payer OTHER, SELFPAY ==
--- NOTE | 2023-04-22 13:02 | A.OFFVIS_ITS ---
Intake Intake Visit Reasons: OV-Bandage change S/P RTKA DOS 04/23/23 Intake Note: Barbara a 52 year old female who presents today for a post operative bandage change s/p right TKA on 04/13/23. Patient reports bandage is coming off. Allergies codeine [Tylenol-Codeine] Allergy (Severe, Verified 04/22/23 13:03) Vomiting compazine Allergy (Severe, Verified 04/22/23 13:03) Seizure hydromorphone [From DILAUDID] Allergy (Severe, Verified 04/22/23 13:03) VOMITING,DIZZY meperidine [Demerol] Allergy (Severe, Verified 04/22/23 13:03) Rash amoxicillin [AMOXICILLIN] Allergy (Intermediate, Verified 04/22/23 13:03) HIVES, THRUSH naproxen Adverse Reaction (Intermediate, Verified 04/22/23 13:03) Family History of Kidney Disease HPI OV-Bandage change S/P RTKA DOS 04/23/23 HPI Details 52-year-old female who presents in the office today for a bandage change; 9 days status post right total knee arthrplasty, which was performed on 04/13/[address] Alva. The patient reports the bandage is coming off. [facility] Medical History Anxiety disorder Arthritis Asthma delivery delivered Cholecystitis Chronic back pain Chronic GERD Depression Diverticulosis Fibromyalgia IBS (irritable bowel syndrome) Morbid obesity Neuropathy Numbness and tingling in left arm Osteoarthritis of left knee Tubular adenoma Surgical History H/O colonoscopy H/O knee surgery H/O oophorectomy Hx of section Family History (Reviewed 04/07/23 @ 13:05 by Ramonita Palomino [facility]) Maternal Grandmother Ovarian ca Other Substance use disorder Social History Household Members: Spouse and Children Housing: House Are you a primary career services director to a significant other at home: No Do you presently have visiting nurse or other home services: No Alcohol intake: current Alcohol intake frequency: holidays/special occasions only Alcohol type: beer Patient Tobacco Use Status: Former Tobacco user Quit Date: 2019 Tobacco use type: Cigarette Years Smoked: 15 years e-Cigarette/Vaping Use: Never Used Substance Use Type: Marijuana Advance Directives Date on File: 04/13/23 service: No 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al status: unemployed 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 Cognitive needs: No Hearing needs: No Vision needs: No Female Reproductive History Menstrual Age of Menarche: 12 Review of Systems Const All systems reviewed & are unremarkable except as noted in HPI and below Physical Exam Const General: cooperative, healthy appearing and no acute distress Resp Effort & Inspection: normal respiratory effort and able to speak in complete sentences Cardio Rate: regular rate Peripheral pulses: Peripheral pulses 2+ throughout GI Palpation (GI): Soft to palpation Skin Lesions: no lesions Rashes: no rashes Extrem Other: Right knee: Incision site is clean, dry, and intact. No surrounding erythema or drainage. No signs of infection. Sherry intact. NVI. Assessment & Plan Assessment & Plan (1) History of total right knee replacement: Code(s): Z96.651 - Presence of right artificial knee joint Plan Ms. Harris is a 52-year-old female who presents in the office today for a bandage change; 9 days status post right total knee arthrplasty, which was performed on 04/13/[address] Alva. The patient reports the bandage is coming off. Aquacell dressing change was performed while in the office today. She will follow up at her regularly scheduled appointment, or sooner if needed. Medications: Discontinued lidocaine 5% leave on most painful area for up to 12 hrs 1 patch topical DAILY 30 days 30 ea 1RF M54.16 - Radiculopathy, lumbar region, M54.5 - Low back pain duloxetine 30 mg PO DAILY 90 days 90 caps 1RF fluticasone propionate 50 mcg/actuation administer into each nostril 1 spray intranasal BID 90 days 16 grams 2RF Patient Instructions: Scribed for Claudine Aldrich PA-C by Linh Regan medical billing representative, on 04/22/2023 at 12:57 pm, EST. Coding Level of Care Code Global (79873) Diagnoses History of total right knee replacement Z96.651
== END 2023-04-22 14:23 | disposition home or self-care (01) ==
PROVIDERS: PCP Internal Medicine; Visit Provider Physician Assistant
DX: Z96.651 Presence of right artificial knee joint (principal)
CPT/HCPCS: 99024

== ENCOUNTER → 2023-04-22 12:53 | Outpatient (BNVA) | payer OTHER, SELFPAY | PROVIDERS: PCP Internal Medicine; Visit Provider Physician Assistant ==

== ENCOUNTER 2023-04-28 14:14 | Outpatient (AMB) | payer OTHER, SELFPAY ==
--- NOTE | 2023-04-28 14:27 | A.OFFVIS_ITS ---
Intake Intake Visit Reasons: PO- RT TKA 04/13/23 NE Intake Note: Barbara a 52 year old female who presents today for a post operative visit for her right TKA on 04/13/23. States she has stiffness and soreness. Also states yesterday while in P.T she felt a loud pop in knee. States pain worsen at night time. Allergies codeine [Tylenol-Codeine] Allergy (Severe, Verified 04/28/23 14:29) Vomiting compazine Allergy (Severe, Verified 04/28/23 14:29) Seizure hydromorphone [From DILAUDID] Allergy (Severe, Verified 04/28/23 14:29) VOMITING,DIZZY meperidine [Demerol] Allergy (Severe, Verified 04/28/23 14:29) Rash amoxicillin [AMOXICILLIN] Allergy (Intermediate, Verified 04/28/23 14:29) HIVES, THRUSH naproxen Adverse Reaction (Intermediate, Verified 04/28/23 14:29) Family History of Kidney Disease HPI PO- RT TKA 04/13/23 NE HPI Details 52-year-old female who presents in the office today 2 weeks status post right total knee arthroplasty, which was performed on 04/13/[address] Alva. The patient reports stiffness and soreness in the right knee. She claims yesterday at physical therapy she felt a loud pop in the knee. She states she has an increase in pain at night. [facility] Medical History Anxiety disorder Arthritis Asthma delivery delivered Cholecystitis Chronic back pain Chronic GERD Depression Diverticulosis Fibromyalgia IBS (irritable bowel syndrome) Morbid obesity Neuropathy Numbness and tingling in left arm Osteoarthritis of left knee Tubular adenoma Surgical History H/O colonoscopy H/O knee surgery H/O oophorectomy Hx of section Family History Maternal Grandmother Ovarian ca Other Substance use disorder Social History Household Members: Spouse and Children Housing: House Are you a primary career counselor to a significant other at home: No Do you presently have visiting nurse or other home services: No Alcohol intake: current Alcohol intake frequency: holidays/special occasions only Alcohol type: beer Patient Tobacco Use Status: Former Tobacco user Quit Date: 2019 Tobacco use type: Cigarette Years Smoked: 15 years e-Cigarette/Vaping Use: Never Used Substance Use Type: Marijuana Advance Directives Date on File: 04/13/23 service: No 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al status: unemployed 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 Cognitive needs: No Hearing needs: No Vision needs: No Female Reproductive History Menstrual Age of Menarche: 12 Review of Systems Const All systems reviewed & are unremarkable except as noted in HPI and below Physical Exam Const General: cooperative, healthy appearing and no acute distress Resp Effort & Inspection: normal respiratory effort and able to speak in complete sentences Cardio Rate: regular rate Peripheral pulses: Peripheral pulses 2+ throughout GI Palpation (GI): Soft to palpation Skin Lesions: no lesions Rashes: no rashes Extrem Other: Right knee: Incision site is clean, dry, and intact. Harris intact. ROM is 10- 100 degrees. Resolving ecchymosis proximal incision site. No palpable defect in the quad. Able to perform a straight leg raise without difficulty. Assessment & Plan Assessment & Plan (1) History of total right knee replacement: Code(s): Z96.651 - Presence of right artificial knee joint Plan Ms. Harris is a 52-year-old female who presents in the office today 2 weeks status post right total knee arthroplasty, which was performed on 04/13/[address] Alva. The patient reports stiffness and soreness in the right knee. She claims yesterday at physical therapy she felt a loud pop in the knee. She states she has an increase in pain at night. Harris were removed and steri-stripes were applied. Dr. Alva was available to see the patient while in the office today and a collaborative treatment plan was made. The patient reports a ripping sensation when getting off a low seated couch. She will transition to outpatient physical therapy. Follow up will be in [address] Alva in the office. Orders: Orders PT Evaluation and Treatment Today Z96.651 - Presence of right artificial knee joint Medications: Discontinued lidocaine 5% leave on most painful area for up to 12 hrs 1 patch topical DAILY 30 days 30 ea 1RF M54.16 - Radiculopathy, lumbar region, M54.5 - Low back pain duloxetine 30 mg PO DAILY 90 days 90 caps 1RF fluticasone propionate 50 mcg/actuation administer into each nostril 1 spray intranasal BID 90 days 16 grams 2RF Patient Instructions: Scribed for Claudine Aldrich PA-C by Linh Regan medical assisting program director, on 04/28/2023 at 2:16 pm, EST. Coding Level of Care Code Global (10405) Diagnoses History of total right knee replacement Z96.651
== END 2023-04-28 15:46 | disposition home or self-care (01) ==
PROVIDERS: PCP Internal Medicine; Visit Provider Physician Assistant
DX: Z96.651 Presence of right artificial knee joint (principal)
CPT/HCPCS: 99024

== ENCOUNTER → 2023-04-28 14:14 | Outpatient (BNVA) | payer OTHER, SELFPAY | PROVIDERS: PCP Internal Medicine; Visit Provider Physician Assistant | DX: Z96.651 Presence of right artificial knee joint (principal) ==

== ENCOUNTER 2023-05-05 14:20 | Outpatient (AMB) | payer OTHER, SELFPAY ==
--- NOTE | 2023-05-05 14:36 | MHC.OFFVIS ---
Intake Intake Visit Reasons: PO- RT TKA 04/13/23 NE Intake Note: Barbara is a 52 year old female who presents today for a post operative visit s/p right TKA on 04/13/23. Patient reports that she is doing well with no concerns. She just started physical therapy yesterday which is going well. She is requesting refill of her oxycodone Allergies codeine [Tylenol-Codeine] Allergy (Severe, Verified 05/05/23 14:52) Vomiting compazine Allergy (Severe, Verified 05/05/23 14:52) Seizure hydromorphone [From DILAUDID] Allergy (Severe, Verified 05/05/23 14:52) VOMITING,DIZZY meperidine [Demerol] Allergy (Severe, Verified 05/05/23 14:52) Rash amoxicillin [AMOXICILLIN] Allergy (Intermediate, Verified 05/05/23 14:52) HIVES, THRUSH naproxen Adverse Reaction (Intermediate, Verified 05/05/23 14:52) Family History of Kidney Disease HPI PO- RT TKA 04/13/23 NE HPI Details Barbara is a 52 year old woman who presents ~3 weeks S/P right TKA. She was last seen on 04/28/23 with complaints of worsening knee pain after feeling a painful popping sensation in her knee when at PT. She says she is doing well today, and her pain has improved. She has just started outpatient PT yesterday. [facility] Medical History Anxiety disorder Arthritis Asthma delivery delivered Cholecystitis Chronic back pain Chronic GERD Depression Diverticulosis Fibromyalgia IBS (irritable bowel syndrome) Morbid obesity Neuropathy Numbness and tingling in left arm Osteoarthritis of left knee Tubular adenoma Surgical History H/O colonoscopy H/O knee surgery H/O oophorectomy Hx of section Family History Maternal Grandmother Ovarian ca Other Substance use disorder Social History Household Members: Spouse and Children Housing: House Are you a primary restorative care technician to a significant other at home: No Do you presently have visiting nurse or other home services: No Alcohol intake: current Alcohol intake frequency: holidays/special occasions only Alcohol type: beer Patient Tobacco Use Status: Former Tobacco user Quit Date: 2019 Tobacco use type: Cigarette Years Smoked: 15 years e-Cigarette/Vaping Use: Never Used Substance Use Type: Marijuana Advance Directives Date on File: 04/13/23 service: No 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al status: unemployed 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 Cognitive needs: No Hearing needs: No Vision needs: No Female Reproductive History Menstrual Age of Menarche: 12 Review of Systems Const All systems reviewed & are unremarkable except as noted in HPI and below Physical Exam Const General: no acute distress, alert and awake Orientation/consciousness: patient oriented x3 HEENT Head: Yes normocephalic and Yes atraumatic Eyes EOM: EOMs intact bilaterally Resp Effort & Inspection: normal respiratory effort and able to speak in complete sentences Cardio Jugular venous distension: no JVD Skin General skin exam: turgor normal Rashes: no rashes Neuro General: patient oriented x3 Extrem Other: Right Knee: Incision C/D/I Full knee extension No palpable defect Psych Appearance: grossly normal Affect: normal affect Attitude: cooperative Results Reviewed Results Reviewed: I personally reviewed relevant radiographs. Right total knee arthroplasty in expected post operative position with no hardware complications or evidence of loosening Assessment & Plan Assessment & Plan (1) History of total right knee replacement: Code(s): Z96.651 - Presence of right artificial knee joint Plan: This is a 52 year old woman S/P right TKA, DOS: 04/13/23. She says she is doing Better than she was last week, and her pain has improved. She has transitioned to outpatient PT this week. I recommend she continue to work with PT on strengthening & ROM. She will follow up in 6 weeks Plan Scribed for Red Alva MD by Bill Brooks, director of graduate medical education, on 05/05/23 at 3:05 PM, EST. Medications: Discontinued lidocaine 5% leave on most painful area for up to 12 hrs 1 patch topical DAILY 30 days 30 ea 1RF M54.16 - Radiculopathy, lumbar region, M54.5 - Low back pain duloxetine 30 mg PO DAILY 90 days 90 caps 1RF fluticasone propionate 50 mcg/actuation administer into each nostril 1 spray intranasal BID 90 days 16 grams 2RF Coding Level of Care Code Global (90851) Diagnoses History of total right knee replacement Z96.651
== END 2023-05-05 15:11 | disposition home or self-care (01) ==
PROVIDERS: PCP Internal Medicine; Visit Provider Orthopaedic Surgery
DX: Z96.651 Presence of right artificial knee joint (principal)
CPT/HCPCS: 99024

== ENCOUNTER → 2023-05-05 14:20 | Outpatient (BNVA) | payer OTHER, SELFPAY | PROVIDERS: PCP Internal Medicine; Visit Provider Orthopaedic Surgery ==

== ENCOUNTER 2023-05-26 09:42 | Outpatient (AMB) | payer OTHER, SELFPAY ==
--- NOTE | 2023-05-26 09:46 | A.OFFVIS_ITS ---
Intake Intake Visit Reasons: PO- RT TKA 04/13/23 NE Intake Note: anthony is a 52 year old female who presents today for a post operative visit s/p right TKA on 04/13/23. Patient repots that she is doing well. She has improved ROM but still needs to work on strengthening. Allergies codeine [Tylenol-Codeine] Allergy (Severe, Verified 05/26/23 09:47) Vomiting compazine Allergy (Severe, Verified 05/26/23 09:47) Seizure hydromorphone [From DILAUDID] Allergy (Severe, Verified 05/26/23 09:47) VOMITING,DIZZY meperidine [Demerol] Allergy (Severe, Verified 05/26/23 09:47) Rash amoxicillin [AMOXICILLIN] Allergy (Intermediate, Verified 05/26/23 09:47) HIVES, THRUSH naproxen Adverse Reaction (Intermediate, Verified 05/26/23 09:47) Family History of Kidney Disease HPI PO- RT TKA 04/13/23 NE HPI Details 6 weeks s/p right TKA. Doing well. Minim al pain and no complaints. She wants to discuss her left knee. She has tried injection, PT, NSAIDs and activity modification for her left knee. She was seen in our office for both knees and elected to proceed with right TKA first. She states now that her left knee is limiting her ability to engage in daily activities. [facility] Medical History Numbness and tingling in left arm Diverticulosis Tubular adenoma Osteoarthritis of left knee Chronic GERD Morbid obesity IBS (irritable bowel syndrome) Depression Asthma Anxiety disorder Chronic back pain Neuropathy delivery delivered Cholecystitis Fibromyalgia Arthritis Surgical History H/O colonoscopy H/O knee surgery H/O oophorectomy Hx of section Family History Maternal Grandmother Ovarian ca Other Substance use disorder Social History Household Members: Spouse and Children Housing: House Are you a primary landcare officer to a significant other at home: No Do you presently have visiting nurse or other home services: No Alcohol intake: current Alcohol intake frequency: holidays/special occasions only Alcohol type: beer Patient Tobacco Use Status: Former Tobacco user Quit Date: 2019 Tobacco use type: Cigarette Years Smoked: 15 years e-Cigarette/Vaping Use: Never Used Substance Use Type: Marijuana Advance Directives Date on File: 04/13/23 service: No 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al status: unemployed 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 Varus alignement Results Reviewed Results Reviewed: I personally reviewed relevant radiographs. Right total knee arthroplasty in expected post operative position with no hardware complications or evidence of loosening Left knee severe varus pattern OA Assessment & Plan Assessment & Plan (1) History of total right knee replacement: Code(s): Z96.651 - Presence of right artificial knee joint Plan: Doing well Cont activity as tolerated. (2) Osteoarthritis of left knee: Code(s): M17.12 - Unilateral primary osteoarthritis, left knee Plan: Left knee OA that has not responded to conservative measures. Her QOL is diminished and she has tried injections, PT, NSAIDs and activity modification. Her radiographs show severe disease. I recommend left TKA. Her right TKA went well and she understands that the same risks exist. I discussed the risks benefits and alternatives including but not limited to the risk of pain, infection, stiffness, need for further surgery as well as potential medical complications such as blood clots, pulmonary embolism and cardiac complications. SHe will discuss with our navigator. Coding Level of Care Code Est Pt Level 4 (27765) Global (91124) Diagnoses History of total right knee replacement Z96.651 Osteoarthritis of left knee M17.12
== END 2023-05-26 10:00 | disposition home or self-care (01) ==
PROVIDERS: PCP Internal Medicine; Visit Provider Orthopaedic Surgery
DX: Z47.1 Aftercare following joint replacement surgery (principal); Z96.651 Presence of right artificial knee joint; M17.12 Unilateral primary osteoarthritis, left knee
CPT/HCPCS: 99024; 99214

== ENCOUNTER → 2023-05-26 09:42 | Outpatient (BNVA) | payer OTHER, SELFPAY | PROVIDERS: PCP Internal Medicine; Visit Provider Orthopaedic Surgery | DX: Z47.1 Aftercare following joint replacement surgery (principal); M17.12 Unilateral primary osteoarthritis, left knee; Z96.651 Presence of right artificial knee joint | CPT/HCPCS: 99212 ==

== ENCOUNTER 2023-06-24 11:00 | Outpatient (RCR) | payer OTHER, SELFPAY ==
--- NOTE | 2023-05-04 15:12 | MHC.PT.EP ---
[facility] [place] Office [place] Office [place] Office [address] Misty Regan [address] [phone] F: [phone] F: [phone] F: [phone] F: [phone] Physical Therapy Plan of Care Date of Evaluation: Date of Surgery: 04/13/2023 Diagnosis: This is a 52 yo female presenting to skilled PT with a script for R TKA. Assessment: This is a 52 yo female presenting to skilled PT with a script for R TKA. Patient reporting that she had surgery on 04/13/2023 at [facility] ortho. Her original injury occurred on September 2022 when she slipped on water and landed on her knee (she had prehab at this facility prior to surgery as well). She went home after surgery and had home PT for 2 weeks. Patient did well with home PT but did hear a loud pop and had pain at her last PT session when she went from sit<>stand from her sofa. She has seen [facility] ortho since then who thinks that the noise was internal stitches. Her steri strips are no longer present and gertrudis were removed. She is ambulating with a straight cane now (did not use this prior). Her L knee also bothers her and there is a plan for her to undergo L TKR as well. Pain comes and goes. Her pain is located at the medial and lateral joint line, patella, lateral quad and medial lower leg. Assessment reveals pain that ranges from up to a 10/10 at the worst. Patient demos decreased R knee ROM, strength of BLE, increased swelling and impaired gait and balance expected s/p R TKR. She is TTP at the medial and lateral joint line as well as adjacent to incision. Based on functional limitations, impaired QOL and pain tolerance patient is a good candidate for skilled PT 2x/wk for 4wk. Frequency and Duration: The patient will be seen 2x/wk for 4wks Short Term Goals: I in HEP Improve knee AROM by at least 10 degs flexion Tolerate 10 SLR's without cues and without fatigue, using good quad contraction Engine Designer Goals: Normalize gait without AD Demo reciprocal gait on stairs without compensatory movements Normalize knee AROM and strength Improve pain to no more than 3/10 at the worst Treatment Plan: Modalities to reduce pain, spasms and effusion. Manual therapy to restore motion and function. Therapeutic exercise to improve strength and flexibility. Neuromuscular re-education for posture and balance. Therapeutic activities to return to functional activities of daily living. Electronically signed by: Chana King PT Please sign and return to therapist. Thank you for your referral.
--- NOTE | 2023-06-24 11:43 | MHC.PT.DC ---
[facility] [place] Office [place] Office [place] Office [address] Misty Regan [address] [phone] F: [phone] F: [phone] F: [phone] F: [phone] Physical Therapy Discharge Report Diagnosis: This is a 52 yo female presenting to skilled PT with a script for R TKA. Date of Surgery: 04/13/2023 Date of Evaluation: 05/04/23 Date of Discharge: 06/24/23 Treatments to Date: 11 Cancellations to Date: 0 No Shows to Date: 0 Discharge Status: Achieved Goals Improved Function Independent with HEP Discharge Summary: Patient demos 0-126 AROM, grossly 4+/5 hip flexion, IR and ER, 4/5 hip abduction and adduction, 5/5 flexion and extension. She still feels functionally limited on the stairs but is actively working on this throughout her day. Her pain is better managed but can be present at night still. She reports good compliance with HEP and icing. She is I and ready/appropriate for DC. Electronically signed by: Chana King PT Please sign and return to therapist. Thank you for your referral.
== END 2023-06-24 12:43 | disposition home or self-care (01) ==
LOC: HO.PTCHIC 11:00
PROVIDERS: PCP Internal Medicine; Visit Provider Physician Assistant
DX: Z96.651 Presence of right artificial knee joint (principal)
CPT/HCPCS: 97110; 97140; 97162; 97530

== ENCOUNTER 2023-07-29 13:19 | Outpatient (AMB) | payer OTHER, SELFPAY ==
--- NOTE | 2023-07-29 14:12 | AM.OFFWIN_ITS ---
Intake Vital Signs 07/29/23 14:13 Height 5 ft 6 in Weight 285 lb BMI 46.0 BP 140/80 H Blood Pressure Location Rt brachial Position Sitting Pulse 96 Pulse Source Pulse Oximeter Temp 97.8 F Temp Source Temporal Artery Scan Pulse Oximetry (%) 98 Intake Visit Reasons: EST/bumps on top of RT Palm Intake Note: pt is here for c/o bumps on rt palm of hand Patient Tobacco Use Status: Former Tobacco user Quit Date: 2019 Allergies codeine [Tylenol-Codeine] Allergy (Severe, Verified 07/29/23 14:13) Vomiting compazine Allergy (Severe, Verified 07/29/23 14:13) Seizure hydromorphone [From DILAUDID] Allergy (Severe, Verified 07/29/23 14:13) VOMITING,DIZZY meperidine [Demerol] Allergy (Severe, Verified 07/29/23 14:13) Rash amoxicillin [AMOXICILLIN] Allergy (Intermediate, Verified 07/29/23 14:13) HIVES, THRUSH naproxen Adverse Reaction (Intermediate, Verified 07/29/23 14:13) Family History of Kidney Disease HPI HPI Comments History of Present Illness Details This is a 52-year-old female who presents to the office today for sick visit. Patient complaining of a bump on her right palm. She states she noticed this bump a few weeks ago. It has not been growing in size but it has not gone away. [facility] Medical History Numbness and tingling in left arm Diverticulosis Tubular adenoma Osteoarthritis of left knee Chronic GERD Morbid obesity IBS (irritable bowel syndrome) Depression Asthma Anxiety disorder Chronic back pain Neuropathy delivery delivered Cholecystitis Fibromyalgia Arthritis Surgical History H/O colonoscopy H/O knee surgery H/O oophorectomy Hx of section Family History Maternal Grandmother Ovarian ca Other Substance use disorder Social History Household Members: Spouse and Children Housing: House Are you a primary child care lead teacher to a significant other at home: No Do you presently have visiting nurse or other home services: No Alcohol intake: current Alcohol intake frequency: holidays/special occasions only Alcohol type: beer Patient Tobacco Use Status: Former Tobacco user Quit Date: 2019 Tobacco use type: Cigarette Years Smoked: 15 years e-Cigarette/Vaping Use: Never Used Substance Use Type: Marijuana Advance Directives Date on File: 04/13/23 service: No 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al status: unemployed 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 Cognitive needs: No Hearing needs: No Vision needs: No Female Reproductive History Menstrual Age of Menarche: 12 Review of Systems Const All systems reviewed & are unremarkable except as noted in HPI and below Reports no additional complaints Eyes Reports no additional complaints ENT Reports no additional complaints Card Reports no additional complaints Resp Reports no additional complaints GI Reports no additional complaints Reports no additional complaints Musc Reports no additional complaints Skin/Breast Reports system reviewed and no additional complaints, except as documented Neuro Reports no additional complaints Psych Reports no additional complaints Endo Reports no additional complaints Devan/Lymph Reports no additional complaints Aller/Immun Reports no additional complaints Physical Exam Vital Signs: Last Vital Signs Temp 97.8 F 07/29/23 14:13 Pulse 96 07/29/23 14:13 BP 140/80 H 07/29/23 14:13 Pulse Ox 98 07/29/23 14:13 BMI result Body Mass Index 46.0 Const Other: Vital signs reviewed. Constitutional: Non-toxic appearing. No acute distress. Well-developed and well-nourished. HEENT: Normocephalic and atraumatic. Skin: Warm and dry. No rashes or lesions noted. Neck: Full and painless range of motion. No cervical lymphadenopathy. Cardio: Regular rate. No lower extremity edema. No JVD. Pulmonary: No respiratory distress. No accessory muscle usage. Gastrointestinal: Soft, nontender, and nondistended in all 4 quadrants. Musculoskeletal: Normal range of motion in joints throughout the body. Small ganglion cyst noted on the right palm. Neuro: Alert and oriented x4. Cranial nerves 2-12 grossly intact. No focal deficits appreciated. Psych: Normal mood and affect. Assessment & Plan Assessment & Plan (1) Ganglion cyst of flexor tendon sheath of finger of right hand: Code(s): M67.441 - Ganglion, right hand Plan: This is a 52-year-old female presenting to the office complaining of a bump on her right hand. History and physical most consistent with a ganglion cyst of the right hand. Patient was reassured about the benign nature of the ganglion cyst. She was educated that there is not any specific treatment or intervention and she was told that surgical intervention is an option; however, there is a high risk of recurrence. Patient was advised that the cyst may resovle on its own. Patient can follow-up here for persistent or worsening symptoms. Patient verbalized understanding and is agreeable with the plan. Coding Level of Care Code Est Pt Level 3 (88080) Diagnoses Ganglion cyst of flexor tendon sheath of finger of right hand M67.441
[2023-07-29 14:13] VITALS: BP 140/80; PULSE 96; TEMP 36.6; O2SAT 98; BMI 46.0
== END 2023-07-29 14:37 | disposition home or self-care (01) ==
PROVIDERS: PCP Internal Medicine; Visit Provider Physician Assistant Medical
DX: M67.441 Ganglion, right hand (principal)
CPT/HCPCS: 99213

== ENCOUNTER 2023-08-01 11:00 | Outpatient (RCR) | payer OTHER, SELFPAY | END 2023-09-27 08:40 | disposition home or self-care (01) | LOC: HO.PTCHIC 11:00 | PROVIDERS: PCP Internal Medicine; Visit Provider Psychiatry & Neurology Neurology | DX: M54.12 Radiculopathy, cervical region (principal) | CPT/HCPCS: 97110; 97140; 97163 ==

== ENCOUNTER 2023-08-26 13:00 | Outpatient (AMB) | payer OTHER, SELFPAY ==
--- NOTE | 2023-08-26 12:28 | A.OFFPC_ITS ---
Vital Signs 08/26/23 12:29 Height 5 ft 6 in Weight 271 lb BMI 43.7 BP 118/70 Blood Pressure Location Lt brachial Position Sitting Pulse 95 Pulse Source Pulse Oximeter Pulse Oximetry (%) 99 Oxygen Delivery Method Room Air Intake Visit Reasons: Pre-Op LT TKA ~ Intake Note: pt is here today for pre-op TL TKA Allergies codeine [Tylenol-Codeine] Allergy (Severe, Verified 08/26/23 12:58) Vomiting compazine Allergy (Severe, Verified 08/26/23 12:58) Seizure hydromorphone [From DILAUDID] Allergy (Severe, Verified 08/26/23 12:58) VOMITING,DIZZY meperidine [Demerol] Allergy (Severe, Verified 08/26/23 12:58) Rash amoxicillin [AMOXICILLIN] Allergy (Intermediate, Verified 08/26/23 12:58) HIVES, THRUSH naproxen Adverse Reaction (Intermediate, Verified 08/26/23 12:58) Family History of Kidney Disease Medication List - Last Reconciled 08/26/23 by Juliet Torres MD acetaminophen 650 mg (2 x 325 mg) PO Q6H PRN albuterol sulfate 90 mcg/actuation (ProAir HFA) 2 puffs inhalation Q6H PRN 90 days ascorbic acid (vitamin C) (Vitamin C) 500 mg PO DAILY celecoxib 200 mg PO BID docusate sodium 100 mg PO BEDTIME duloxetine (Cymbalta) 60 mg PO DAILY enoxaparin 40 mg (0.4 mL) subcut Q24H 42 days fluticasone propionate 50 mcg/actuation 1 spray intranasal BID lidocaine 5% 1 patch topical DAILY PRN loratadine 10 mg PO DAILY 90 days multivitamin 1 tab PO DAILY omeprazole 40 mg PO DAILY pantoprazole 20 mg PO DAILY sennosides (Natural Senna Laxative) 17.2 mg (2 x 8.6 mg) PO BEDTIME tolterodine (Detrol) 2 mg PO BID 90 days Tobacco use date assessed: 08/26/23 Dental Screening Dental Screen Date: 08/26/23 Did you have a dental visit in the last 12 months?: No Did you have a dental problem in the last 6 months where you did not have access to dental care?: No Was dental information given to patient?: No HPI Pre-Op LT TKA ~ HPI Details Patient is a 52-year-old female is due regular follow-up appointment and Preop evaluation for left knee replacement surgery Patient have a history of depression, fibromyalgia, chronic neck pain, overactive bladder, GERD, allergies, chronic nasal congestion, constipation And morbid obesity. EKG done today shows normal sinus rhythm no acute findings Lab order placed Last set of labs April showed hemoglobin of 10.6 with microcytic indices We will be repeating CBC as well as iron studies Medication list reviewed Patient is stable for left knee replacement surgery provided her hemoglobin has improved Otherwise she will need a close eye on her hemoglobin during and after surgery Limited range of motion of both shoulders which is a chronic problem limited range of motion of cervical spine also chronic Patient says that she was told it will be under epidural anesthesia. Patient is taking no blood thinners not even aspirin PFSH Medical History Numbness and tingling in left arm Diverticulosis Tubular adenoma Osteoarthritis of left knee Chronic GERD Morbid obesity IBS (irritable bowel syndrome) Depression Asthma Anxiety disorder Chronic back pain Neuropathy delivery delivered Cholecystitis Fibromyalgia Arthritis Surgical History H/O colonoscopy H/O knee surgery H/O oophorectomy Hx of section Family History Maternal Grandmother Ovarian ca Other Substance use disorder Social History Household Members: Spouse and Children Housing: House Are you a primary respiratory care specialist to a significant other at home: No Do you presently have visiting nurse or other home services: No Alcohol intake: current Alcohol intake frequency: holidays/special occasions only Alcohol type: beer Patient Tobacco Use Status: Former Tobacco user Quit Date: 2019 Tobacco use type: Cigarette Years Smoked: 15 years e-Cigarette/Vaping Use: Never Used Substance Use Type: Marijuana Advance Directives Date on File: 04/13/23 service: No 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al status: unemployed 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 How often do you have a drink containing alcohol?: Monthly or less 2. How many drinks containing alcohol do you have on a typical day when you are drinking?: 1 or 2 3. How often do you have six or more drinks on one occasion?: Never Total Score: 1 Score Reviewed/Action Taken: Yes Review of Systems Const Denies chills and Denies fever(s) ENT Denies epistaxis and Denies nasal discharge Card Denies chest pain Resp Denies chest congestion, Denies cough and Denies hemoptysis GI Denies diarrhea and Denies nausea Skin/Breast Denies rash Neuro Reports no additional complaints Psych Reports no additional complaints Endo Reports no additional complaints Physical exam (Primary Care) Vital Signs: Last Vital Signs Pulse 95 08/26/23 12:29 BP 118/70 08/26/23 12:29 Pulse Ox 99 08/26/23 12:29 Oxygen Delivery Method Room Air 08/26/23 12:29 BMI result Body Mass Index 43.7 Tobacco/Smoking Status: Tobacco use Status Tobacco use date assessed 08/26/23 08/26/23 12:31 Patient Tobacco Use Status Former Tobacco user 08/26/23 12:31 Tobacco use type Cigarette 08/26/23 12:31 e-Cigarette/Vaping Use Never Used 08/26/23 12:31 Thrive Assessment: Date of Thrive Assessment Date Thrive assessed 04/14/23 08/26/23 12:31 Const General: cooperative, comfortable and no acute distress Orientation/consciousness: patient oriented x3 HENMT Head: Yes normocephalic Eyes General: appearance normal, both eyes and all related structures Neck Other: Limited range of motion in extension Resp Effort & Inspection: normal respiratory effort, no cough and no stridor Cardio Rhythm: regular rhythm Heart sounds: S1 normal heart sound present and S2 normal heart sound present Skin General skin exam: turgor normal Neuro General: patient oriented x3, tone normal and moves all extremities Extrem Other: Limited range of motion of shoulders left more than right Right lower extremity: no edema Left lower extremity: no edema Assessment and Plan Assessment & Plan (1) Pre-op evaluation: Code(s): Z01.818 - Encounter for other preprocedural examination (2) Osteoarthritis of left knee: Code(s): M17.12 - Unilateral primary osteoarthritis, left knee Qualifiers: Osteoarthritis type: primary Qualified Code(s): M17.12 - Unilateral primary osteoarthritis, left knee (3) Major depression, recurrent: Code(s): F33.9 - Major depressive disorder, recurrent, unspecified Qualifiers: Active/Remission status: in full remission Qualified Code(s): F33.42 - Major depressive disorder, recurrent, in full remission (4) Fibromyalgia: Code(s): M79.7 - Fibromyalgia (5) Environmental allergies: Code(s): Z91.09 - Other allergy status, other than to drugs and biological substances (6) Morbid obesity due to excess calories: Code(s): E66.01 - Morbid (severe) obesity due to excess calories (7) Chronic GERD: Code(s): K21.9 - Gastro-esophageal reflux disease without esophagitis (8) Neuropathy: Code(s): G62.9 - Polyneuropathy, unspecified (9) Anemia: Code(s): D64.9 - Anemia, unspecified Qualifiers: Anemia type: iron deficiency Iron deficiency anemia type: other iron deficiency Qualified Code(s): D50.8 - Other iron deficiency anemias (10) Fibromyalgia: Code(s): M79.7 - Fibromyalgia (11) IBS (irritable bowel syndrome): Code(s): K58.9 - Irritable bowel syndrome without diarrhea Qualifiers: Irritable bowel syndrome type: with constipation Qualified Code(s): K58.1 - Irritable bowel syndrome with constipation (12) Overactive bladder: Code(s): N32.81 - Overactive bladder Plan Patient is a 52-year-old female is due regular follow-up appointment and Preop evaluation for left knee replacement surgery Patient have a history of depression, fibromyalgia, chronic neck pain, overactive bladder, GERD, allergies, chronic nasal congestion, constipation And morbid obesity. EKG done today shows normal sinus rhythm no acute findings Lab order placed Last set of labs April showed hemoglobin of 10.6 with microcytic indices We will be repeating CBC as well as iron studies Medication list reviewed Patient is stable for left knee replacement surgery provided her hemoglobin has improved Otherwise she will need a close eye on her hemoglobin during and after surgery Limited range of motion of both shoulders which is a chronic problem limited range of motion of cervical spine also chronic Patient says that she was told it will be under epidural anesthesia. Patient is taking no blood thinners not even aspirin Orders: Orders Comprehensive Met. Panel Today D64.9 - Anemia, unspecified, E66.01 - Morbid (severe) obesity due to excess calories, F33.9 - Major depressive disorder, recurrent, unspecified, G62.9 - Polyneuropathy, unspecified, K21.9 - Gastro- esophageal reflux disease without esophagitis, M17.12 - Unilateral primary osteoarthritis, left knee, M79.7 - Fibromyalgia, Z01.818 - Encounter for other preprocedural examination, Z91.09 - Other allergy status, other than to drugs and biological substances Ferritin Today D64.9 - Anemia, unspecified, E66.01 - Morbid (severe) obesity due to excess calories, F33.9 - Major depressive disorder, recurrent, unspecified, G62.9 - Polyneuropathy, unspecified, K21.9 - Gastro-esophageal reflux disease without esophagitis, M17.12 - Unilateral primary osteoarthritis, left knee, M79.7 - Fibromyalgia, Z01.818 - Encounter for other preprocedural examination, Z91.09 - Other allergy status, other than to drugs and biological substances Vitamin B12 Today D64.9 - Anemia, unspecified, E66.01 - Morbid (severe) obesity due to excess calories, F33.9 - Major depressive disorder, recurrent, unspecified, G62.9 - Polyneuropathy, unspecified, K21.9 - Gastro-esophageal reflux disease without esophagitis, M17.12 - Unilateral primary osteoarthritis, left knee, M79.7 - Fibromyalgia, Z01.818 - Encounter for other preprocedural examination, Z91.09 - Other allergy status, other than to drugs and biological substances Folate Today D64.9 - Anemia, unspecified, E66.01 - Morbid (severe) obesity due to excess calories, F33.9 - Major depressive disorder, recurrent, unspecified, G62.9 - Polyneuropathy, unspecified, K21.9 - Gastro-esophageal reflux disease without esophagitis, M17.12 - Unilateral primary osteoarthritis, left knee, M79.7 - Fibromyalgia, Z01.818 - Encounter for other preprocedural examination, Z91.09 - Other allergy status, other than to drugs and biological substances Complete Blood Count Auto Diff Today D64.9 - Anemia, unspecified, E66.01 - Morbid (severe) obesity due to excess calories, F33.9 - Major depressive disorder, recurrent, unspecified, G62.9 - Polyneuropathy, unspecified, K21.9 - Gastro-esophageal reflux disease without esophagitis, M17.12 - Unilateral primary osteoarthritis, left knee, M79.7 - Fibromyalgia, Z01.818 - Encounter for other preprocedural examination, Z91.09 - Other allergy status, other than to drugs and biological substances IRON PROFILE Today D64.9 - Anemia, unspecified, E66.01 - Morbid (severe) obesity due to excess calories, F33.9 - Major depressive disorder, recurrent, unspecified, G62.9 - Polyneuropathy, unspecified, K21.9 - Gastro-esophageal reflux disease without esophagitis, M17.12 - Unilateral primary osteoarthritis, left knee, M79.7 - Fibromyalgia, Z01.818 - Encounter for other preprocedural examination, Z91.09 - Other allergy status, other than to drugs and biological substances AMB EKG-In Office Today Z13.6 - Encounter for screening for cardiovascular disorders Coding Level of Care Code Est Pt Level 4 (37490) Diagnoses Pre-op evaluation Z01.818 Primary osteoarthritis of left knee M17.12 Osteoarthritis type: primary Recurrent major depressive disorder, in full remission F33.42 Active/Remission status: in full remission Fibromyalgia M79.7 Environmental allergies Z91.09 Morbid obesity due to excess calories E66.01 Chronic GERD K21.9 Neuropathy G62.9 Other iron deficiency anemia D50.8 Anemia type: iron deficiency Iron deficiency anemia type: other iron deficiency Irritable bowel syndrome with constipation K58.1 Irritable bowel syndrome type: with constipation Overactive bladder N32.81
[2023-08-26 12:29] VITALS: BP 118/70; PULSE 95; O2SAT 99; BMI 43.7
--- NOTE | 2023-08-26 13:32 | MHC.PC.OV ---
Vital Signs 08/26/23 12:29 Height 5 ft 6 in Weight 271 lb BMI 43.7 BP 118/70 Blood Pressure Location Lt brachial Position Sitting Pulse 95 Pulse Source Pulse Oximeter Pulse Oximetry (%) 99 Oxygen Delivery Method Room Air Intake Visit Reasons: Pre-Op LT TKA ~ Allergies codeine [Tylenol-Codeine] Allergy (Severe, Verified 08/26/23 12:58) Vomiting compazine Allergy (Severe, Verified 08/26/23 12:58) Seizure hydromorphone [From DILAUDID] Allergy (Severe, Verified 08/26/23 12:58) VOMITING,DIZZY meperidine [Demerol] Allergy (Severe, Verified 08/26/23 12:58) Rash amoxicillin [AMOXICILLIN] Allergy (Intermediate, Verified 08/26/23 12:58) HIVES, THRUSH naproxen Adverse Reaction (Intermediate, Verified 08/26/23 12:58) Family History of Kidney Disease Medication List - Last Reconciled 08/26/23 by Juliet Torres MD acetaminophen 650 mg (2 x 325 mg) PO Q6H PRN albuterol sulfate 90 mcg/actuation (ProAir HFA) 2 puffs inhalation Q6H PRN 90 days ascorbic acid (vitamin C) (Vitamin C) 500 mg PO DAILY celecoxib 200 mg PO BID docusate sodium 100 mg PO BEDTIME duloxetine (Cymbalta) 60 mg PO DAILY enoxaparin 40 mg (0.4 mL) subcut Q24H 42 days fluticasone propionate 50 mcg/actuation 1 spray intranasal BID lidocaine 5% 1 patch topical DAILY PRN loratadine 10 mg PO DAILY 90 days multivitamin 1 tab PO DAILY omeprazole 40 mg PO DAILY pantoprazole 20 mg PO DAILY sennosides (Natural Senna Laxative) 17.2 mg (2 x 8.6 mg) PO BEDTIME tolterodine (Detrol) 2 mg PO BID 90 days Tobacco use date assessed: 08/26/23 [facility] Medical History Numbness and tingling in left arm Diverticulosis Tubular adenoma Osteoarthritis of left knee Chronic GERD Morbid obesity IBS (irritable bowel syndrome) Depression Asthma Anxiety disorder Chronic back pain Neuropathy delivery delivered Cholecystitis Fibromyalgia Arthritis Surgical History H/O colonoscopy H/O knee surgery H/O oophorectomy Hx of section Family History Maternal Grandmother Ovarian ca Other Substance use disorder Social History Household Members: Spouse and Children Housing: House Are you a primary lpn care manager to a significant other at home: No Do you presently have visiting nurse or other home services: No Alcohol intake: current Alcohol intake frequency: holidays/special occasions only Alcohol type: beer Patient Tobacco Use Status: Former Tobacco user Quit Date: 2019 Tobacco use type: Cigarette Years Smoked: 15 years e-Cigarette/Vaping Use: Never Used Substance Use Type: Marijuana Advance Directives Date on File: 04/13/23 service: No 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al status: unemployed 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 1. Little interest or pleasure in doing things: several days 2. Feeling down, depressed, or hopeless: several days 3. Trouble falling or staying asleep, or sleeping too much: nearly every day 4. Feeling tired or having little energy: nearly every day 5. Poor appetite or overeating: several days 6. Feeling bad about yourself - or that you are a failure or have let yourself or your family down: nearly every day 7. Trouble concentrating on things, such as reading the newspaper or watching television: more than half the days 8. Moving or speaking so slowly that other people could have noticed. Or the opposite - being so fidgety or restless that you have been moving around a lot more than usual: not at all 9. Thoughts that you would be better off or of hurting yourself in some way: not at all Total score: 14 35892 - PHQ-9 Billing: Yes Source: Developed by Drs. Joshua Munoz, Claudia Taylor, Kojo Frye and colleagues, with an educational jessica from [email or web address]. Thrive Questionnaire Date Thrive assessed: 12/15/23 I am a: Patient What is your living situation today?: I have a steady place to live Within the past 12 months, did the food you bought not last and you didn't have the money to get more?: Sometimes True Within the past 12 months, did you worry whether your food would run out before you got money to buy more?: Sometimes True Do you have trouble paying for medicines?: No Do you have trouble getting transportation to medical appointments?: No Do you have trouble paying your heating and electricity bill?: Yes Do you have trouble taking care of your child, family member or friend?: Yes Do you have trouble with day-to-day activities such as bathing, preparing meals, shopping, managing finances, etc.?: Yes Are you currently unemployed and looking for a job?: Yes Are you interested in more education?: No AUDIT C Alcohol Use Questionnaire (AUDIT-C) 1. How often do you have a drink containing alcohol?: Monthly or less 2. How many drinks containing alcohol do you have on a typical day when you are drinking?: 1 or 2 3. How often do you have six or more drinks on one occasion?: Never Total Score: 1 Score Reviewed/Action Taken: Yes MIKE-7 AMB Questionnaire MIKE-7 Date MIKE - 7 assessed: 08/26/23 Feeling nervous, anxious, or on edge: 3 = Nearly every day Not being able to stop or control worryin = More than half the days Worrying too much about different things: 2 = More than half the days Trouble relaxin = More than half the days Being so restless that it is hard to sit still: 1 = Several days Becoming easily annoyed or irritable: 3 = Nearly every day Feeling afraid as if something awful might happen: 2 = More than half the days Total MIKE-7 score (0-4 normal; 5-9 mild; 10-14 moderate; 15-21 severe): 15 Source: Developed by Drs. Joshua Munoz, Claudia Taylor, Kojo Frye and colleagues, with an educational jessica from [email or web address]. MIKE-7 Assessment Billing MIKE-7 Assessment Tool: MIKE-7 Assessment 69601 Physical exam (Primary Care) Vital Signs: Last Vital Signs Pulse 95 08/26/23 12:29 BP 118/70 08/26/23 12:29 Pulse Ox 99 08/26/23 12:29 Oxygen Delivery Method Room Air 08/26/23 12:29 BMI result Body Mass Index 43.7 Tobacco/Smoking Status: Tobacco use Status Tobacco use date assessed 08/26/23 08/26/23 13:34 Patient Tobacco Use Status Former Tobacco user 08/26/23 13:34 Tobacco use type Cigarette 08/26/23 13:34 e-Cigarette/Vaping Use Never Used 08/26/23 13:34 PHQ-9: PHQ-9 Score PHQ-9: Total score 14 08/26/23 13:37 Thrive Assessment: Date of Thrive Assessment Date Thrive assessed 08/26/23 08/26/23 13:34 Assessment and Plan Assessment & Plan (1) Pre-op evaluation: Code(s): Z01.818 - Encounter for other preprocedural examination (2) Osteoarthritis of left knee: Code(s): M17.12 - Unilateral primary osteoarthritis, left knee Qualifiers: Osteoarthritis type: primary Qualified Code(s): M17.12 - Unilateral primary osteoarthritis, left knee (3) Major depression, recurrent: Code(s): F33.9 - Major depressive disorder, recurrent, unspecified Qualifiers: Active/Remission status: in full remission Qualified Code(s): F33.42 - Major depressive disorder, recurrent, in full remission (4) Fibromyalgia: Code(s): M79.7 - Fibromyalgia (5) Environmental allergies: Code(s): Z91.09 - Other allergy status, other than to drugs and biological substances (6) Morbid obesity due to excess calories: Code(s): E66.01 - Morbid (severe) obesity due to excess calories (7) Chronic GERD: Code(s): K21.9 - Gastro-esophageal reflux disease without esophagitis (8) Neuropathy: Code(s): G62.9 - Polyneuropathy, unspecified (9) Anemia: Code(s): D64.9 - Anemia, unspecified Qualifiers: Anemia type: iron deficiency Iron deficiency anemia type: other iron deficiency Qualified Code(s): D50.8 - Other iron deficiency anemias (10) IBS (irritable bowel syndrome): Code(s): K58.9 - Irritable bowel syndrome without diarrhea Qualifiers: Irritable bowel syndrome type: with constipation Qualified Code(s): K58.1 - Irritable bowel syndrome with constipation (11) Overactive bladder: Code(s): N32.81 - Overactive bladder Orders: Orders Comprehensive Met. Panel Today D64.9 - Anemia, unspecified, E66.01 - Morbid (severe) obesity due to excess calories, F33.9 - Major depressive disorder, recurrent, unspecified, G62.9 - Polyneuropathy, unspecified, K21.9 - Gastro-esophageal reflux disease without esophagitis, M17.12 - Unilateral primary osteoarthritis, left knee, M79.7 - Fibromyalgia, Z01.818 - Encounter for other preprocedural examination, Z91.09 - Other allergy status, other than to drugs and biological substances Ferritin Today D64.9 - Anemia, unspecified, E66.01 - Morbid (severe) obesity due to excess calories, F33.9 - Major depressive disorder, recurrent, unspecified, G62.9 - Polyneuropathy, unspecified, K21.9 - Gastro-esophageal reflux disease without esophagitis, M17.12 - Unilateral primary osteoarthritis, left knee, M79.7 - Fibromyalgia, Z01.818 - Encounter for other preprocedural examination, Z91.09 - Other allergy status, other than to drugs and biological substances Vitamin B12 Today D64.9 - Anemia, unspecified, E66.01 - Morbid (severe) obesity due to excess calories, F33.9 - Major depressive disorder, recurrent, unspecified, G62.9 - Polyneuropathy, unspecified, K21.9 - Gastro-esophageal reflux disease without esophagitis, M17.12 - Unilateral primary osteoarthritis, left knee, M79.7 - Fibromyalgia, Z01.818 - Encounter for other preprocedural examination, Z91.09 - Other allergy status, other than to drugs and biological substances Folate Today D64.9 - Anemia, unspecified, E66.01 - Morbid (severe) obesity due to excess calories, F33.9 - Major depressive disorder, recurrent, unspecified, G62.9 - Polyneuropathy, unspecified, K21.9 - Gastro-esophageal reflux disease without esophagitis, M17.12 - Unilateral primary osteoarthritis, left knee, M79.7 - Fibromyalgia, Z01.818 - Encounter for other preprocedural examination, Z91.09 - Other allergy status, other than to drugs and biological substances Complete Blood Count Auto Diff Today D64.9 - Anemia, unspecified, E66.01 - Morbid (severe) obesity due to excess calories, F33.9 - Major depressive disorder, recurrent, unspecified, G62.9 - Polyneuropathy, unspecified, K21.9 - Gastro-esophageal reflux disease without esophagitis, M17.12 - Unilateral primary osteoarthritis, left knee, M79.7 - Fibromyalgia, Z01.818 - Encounter for other preprocedural examination, Z91.09 - Other allergy status, other than to drugs and biological substances IRON PROFILE Today D64.9 - Anemia, unspecified, E66.01 - Morbid (severe) obesity due to excess calories, F33.9 - Major depressive disorder, recurrent, unspecified, G62.9 - Polyneuropathy, unspecified, K21.9 - Gastro-esophageal reflux disease without esophagitis, M17.12 - Unilateral primary osteoarthritis, left knee, M79.7 - Fibromyalgia, Z01.818 - Encounter for other preprocedural examination, Z91.09 - Other allergy status, other than to drugs and biological substances AMB EKG-In Office Today Z13.6 - Encounter for screening for cardiovascular disorders Coding Diagnoses Pre-op evaluation Z01.818 Primary osteoarthritis of left knee M17.12 Osteoarthritis type: primary Recurrent major depressive disorder, in full remission F33.42 Active/Remission status: in full remission Fibromyalgia M79.7 Environmental allergies Z91.09 Morbid obesity due to excess calories E66.01 Chronic GERD K21.9 Neuropathy G62.9 Other iron deficiency anemia D50.8 Anemia type: iron deficiency Iron deficiency anemia type: other iron deficiency Irritable bowel syndrome with constipation K58.1 Irritable bowel syndrome type: with constipation Overactive bladder N32.81 Additional Codes MIKE-7 Assessment Billing - MIKE-7 Assessment Tool: MIKE-7 Assessment [id number] ([id number])
== END 2023-08-26 15:33 | disposition home or self-care (01) ==
PROVIDERS: PCP Internal Medicine; Visit Provider Internal Medicine
DX: M17.12 Unilateral primary osteoarthritis, left knee (principal); F33.42 Major depressive disorder, recurrent, in full remission; E66.01 Morbid (severe) obesity due to excess calories; Z68.41 Body mass index [BMI] 40.0-44.9, adult; K21.9 Gastro-esophageal reflux disease without esophagitis; Z01.818 Encounter for other preprocedural examination; M79.7 Fibromyalgia; Z91.09 Other allergy status, other than to drugs and biological substances; G62.9 Polyneuropathy, unspecified; D50.8 Other iron deficiency anemias; K58.1 Irritable bowel syndrome with constipation; N32.81 Overactive bladder
CPT/HCPCS: 99214

== ENCOUNTER 2023-08-26 13:23 | Outpatient (REF) | payer OTHER, SELFPAY ==
[2023-08-26 16:25] LABS: MANUAL DIFF FLAG NO
[2023-08-26 16:29] LABS: Basophils Absolute Auto 0.1 X10*3/uL (0.0-0.2); Basophils Percent Auto 1.2 % (0-2); Eosinophils Absolute Auto 0.7 X10*3/uL (0.0-0.4); Eosinophils Percent Auto 11.8 % (0-4); Hematocrit 37.3 % (37.0-47.0); Hemoglobin 12.5 g/dl (12.0-16.0); Imm Gran Abs Auto 0.02 X10*3/uL (0.00-0.03); Imm Gran Pct Auto 0.4 % (0.0-0.4); Lymphocytes Absolute Auto 1.9 X10*3/uL (1.2-4.9); Lymphocytes Percent Auto 33.2 % (20-40); Mean Corpuscular HGB Conc 33.5 g/dl (31.0-35.0); Mean Corpuscular Hemoglobin 30.9 pg (27.0-33.0); Mean Corpuscular Volume 92.1 fL (80.0-98.0); Mean Platelet Volume 10.1 fL (9.4-12.3); Monocytes Absolute Auto 0.4 X10*3/uL (0.1-1.2); Neutrophils Absolute Auto 2.6 x10*3/uL (2.0-8.3); Neutrophils Percent Auto 46.4 % (45-73); Platelet Count 375 X10*3/uL (160-400); Red Blood Count 4.05 X10*6/uL (4.20-5.50); Red Cell Distribution Width 12.8 % (11.0-16.0); White Blood Count 5.7 X10*3/uL (4.8-10.8)
[2023-08-26 16:46] LABS: Alanine Aminotransferase 10 U/L (0-31); Albumin Level 4.1 g/dL (3.5-5.0); Alkaline Phosphatase 77 U/L (39-117); Anion Gap 16 (12-20); Aspartate Amino Transferase 16 U/L (5-31); Bilirubin Total 0.5 mg/dL (0.0-1.0); Blood Urea Nitrogen 15 mg/dL (9-16); Calcium 9.8 mg/dL (8.4-10.2); Carbon Dioxide 24 mmol/L (22-29); Chloride 107 mmol/L (96-108); Estimated Glomerular Filt Rate 57; Glucose Random 64 mg/dL (60-115); Iron 122 mcg/dL (30-160); Percent Iron Saturation 47 % (15-50); Potassium 3.7 mmol/L (3.3-5.1); Sodium 143 mmol/L (135-145); Total Iron Binding Capacity 257 mcg/dL (228-428); Total Protein 7.2 g/dL (6.5-8.0); Unsaturated Iron Binding 135 ug/dL
[2023-08-26 17:04] LABS: Ferritin 84 ng/mL (10-250)
[2023-08-26 17:18] LABS: Folate 15.2 ng/mL (> or = 4.0); Vitamin B12 757 pg/mL (200-900)
== END 2023-08-26 13:24 | disposition home or self-care (01) ==
LOC: HO.HMGCLDS 13:23
PROVIDERS: PCP Internal Medicine; Visit Provider Internal Medicine
DX: M79.7 Fibromyalgia (principal)
CPT/HCPCS: 36415; 80053; 82607; 82728; 82746; 83540; 85025

== ENCOUNTER 2023-09-08 10:41 | Outpatient (REF) | payer OTHER, SELFPAY | END 2023-09-08 10:42 | disposition home or self-care (01) | LOC: HO.HOSX 10:41 | PROVIDERS: PCP Internal Medicine; Visit Provider Physician Assistant | DX: Z13.89 Encounter for screening for other disorder (principal) ==

== ENCOUNTER 2023-09-13 07:30 | Day surgery (SDC) | payer OTHER, SELFPAY ==
[2023-09-01 12:34] VITALS: BP 133/74; PULSE 92; RESP 18; O2SAT 97; BMI 43.6
--- NOTE | 2023-09-01 13:05 | P.CONAN_ITS ---
Documented by User: Cecile Jansen NP 09/01/23 13:18 HPI - Anesthesia Eval Consult details Narrative: 52yo F for Left Knee Replacement Total Medically optimized per PCP s/p right knee 04/2023 with spinal/block. No issues per pt. No recent illness No CP/SOB within limits of pain. Very minimal activity Gerd. Well controlled on ppi Asthma. Well controlled. Very rare albuterol PMFSH Active Problems Active Problems: All Active Problems (Updated 09/01/23 @ 12:50 by Felicia Raya RN) Anemia (Acute) History of total right knee replacement (Acute) Pre-op evaluation (Acute) Morbid obesity due to excess calories (Acute) Sprain of medial collateral ligament of right knee (Acute) Internal derangement of right knee (Acute) Hematoma (Acute) Osteoarthritis of right knee (Acute) Chest wall contusion (Acute) Sprain of left hand (Acute) Sprain of right knee (Acute) Rash (Acute) Overactive bladder (Acute) Radiculitis of left cervical region (Acute) Screening for alcohol problem (Acute) Fracture of ankle, right, closed (Acute) Serum calcium elevated (Acute) Right rib fracture (Acute) Pain management (Acute) Closed rib fracture (Acute) Hospital discharge follow-up (Acute) Ecchymosis (Acute) Right buttock pain (Acute) Fall (Acute) Hospital discharge follow-up (Acute) Numbness and tingling (Acute) High ankle sprain of left lower extremity (Acute) Major depression, recurrent (Acute) Neck Pain (Acute) Encounter for general adult medical examination with abnormal findings (Acute) Well woman exam (Acute) Fibromyalgia (Acute) Muscle spasm (Acute) Establishing care with new doctor, encounter for (Acute) Muscle spasms of both lower extremities (Acute) Lumbar pain (Acute) Environmental allergies (Acute) Left lumbar radiculitis (Acute) Degenerative disc disease (Acute) Sciatica (Acute) Osteoarthritis of left knee (Acute) Paraspinal muscle spasm (Acute) Pain of left calf (Acute) Bulging of cervical intervertebral disc (Acute) Diverticulosis (Acute) Tubular adenoma (Acute) IBS (irritable bowel syndrome) (Acute) Chronic GERD (Acute) Osteoarthritis of left knee (Acute) Neuropathy (Acute) Fibromyalgia (Acute) Cholecystitis (Acute) delivery delivered (Acute) Arthritis (Acute) Past Medical History Medical History (Updated 09/01/23 @ 12:50 by Felicia Raya RN) Arm numbness left Neck pain Concussion Numbness and tingling in left arm Diverticulosis Tubular adenoma Osteoarthritis of left knee Chronic GERD Morbid obesity IBS (irritable bowel syndrome) Depression Asthma Anxiety disorder Chronic back pain Neuropathy delivery delivered Cholecystitis Fibromyalgia Arthritis Family History Family History (Updated 09/01/23 @ 12:33 by Felicia Raya RN) Maternal Grandmother Ovarian ca Sister Slow to wake up after anesthesia Other Substance use disorder Family history of problems with anesthesia: Yes (Sister slow to wake) Surgical History Surgical History H/O colonoscopy H/O knee surgery H/O oophorectomy Hx of section History of Problems with Anesthesia: No Social History Social History Household Members: Spouse and Children Housing: House Are you a primary life care planner to a significant other at home: No Do you presently have visiting nurse or other home services: No Alcohol intake: current Alcohol intake frequency: holidays/special occasions only Alcohol type: beer Patient Tobacco Use Status: Former Tobacco user Quit Date: 2019 Tobacco use type: Cigarette Years Smoked: 15 years e-Cigarette/Vaping Use: Never Used Use of substances other than those prescribed or required for medical reasons: Yes Substance Use Type: Marijuana Substance Use Frequency: Occasionally Have you been hit, kicked, punched, or otherwise hurt by someone within the past year? 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 Cognitive needs: No Hearing needs: No Vision needs: No Meds Allergies Allergy/AdvReac Type Severity Reaction Status Date / Time codeine [Tylenol-Codeine] Allergy Severe Vomiting Verified 09/08/23 10:56 compazine Allergy Severe Seizure Verified 09/08/23 10:56 hydromorphone [From DILAUDID] Allergy Severe VOMITING,DI Verified 09/08/23 10:56 ZZY meperidine [Demerol] Allergy Severe Rash Verified 09/08/23 10:56 prednisone Allergy Severe skin Verified 09/08/23 10:56 blistering amoxicillin [AMOXICILLIN] Allergy Intermediate HIVES, Verified 09/08/23 10:56 THRUSH naproxen AdvReac Intermediate Family Verified 09/08/23 10:56 History of Kidney Disease Home Medications Medication Instructions Recorded Confirmed Last Taken Type ascorbic acid (vitamin C) 500 mg 500 mg PO DAILY 04/07/23 09/08/23 09/13/23 History tablet (Vitamin C) duloxetine 30 mg capsule,delayed 60 mg PO DAILY 04/07/23 09/08/23 09/13/23 History release (Cymbalta) amitriptyline 25 mg tablet 25 mg PO BEDTIME 09/01/23 09/08/23 09/12/23 History cyclobenzaprine 10 mg tablet 10 mg PO BEDTIME 09/01/23 09/08/23 09/12/23 History Exam Height,Weight and Vital Signs: Height 5 ft 6.5 in Weight 124.4 kg Last Vital Signs Pulse 92 09/01/23 12:34 Resp 18 09/01/23 12:34 BP 133/74 09/01/23 12:34 Pulse Ox 97 09/01/23 12:34 O2 Del Method Room Air 09/01/23 12:34 Pertinent Lab Results Pertinent Lab Results: Laboratory Tests 08/26/23 13:38 WBC 5.7 Hgb 12.5 Hct 37.3 Plt Count 375 D Sodium 143 Potassium 3.7 Chloride 107 Carbon Dioxide 24 BUN 15 Creatinine 1.02 Narrative Narrative: EKG 08/2023 NSR @ 99 Nonspecific T wave Airway Mallampati Class: II TM Dist: >3cm Neck ROM: Limited (turning to right is painful with pinched nerve) Partial: Upper (Doesn't wear) and Lower Loose/Missing/Broken Teeth: No Heart: RRR Lungs: CTAB Assessment and Plan Assessment Anesthesia Assessment: Anesthesia Plan Discussed and PAT Visit Final Anesthetic Review Family History of Problems with Anesthesia: Yes (Sister slow to wake) History of Problems with Anesthesia: No Documented by User: Alin Cifuenets MD 09/13/23 11:06 [facility] Past Medical History Medical History (Updated 09/01/23 @ 12:50 by Felicia Raya, RN) Arm numbness left Neck pain Concussion Numbness and tingling in left arm Diverticulosis Tubular adenoma Osteoarthritis of left knee Chronic GERD Morbid obesity IBS (irritable bowel syndrome) Depression Asthma Anxiety disorder Chronic back pain Neuropathy delivery delivered Cholecystitis Fibromyalgia Arthritis Family History Family History (Updated 09/01/23 @ 12:33 by Felicia Raya, CHELSEY) Maternal Grandmother Ovarian ca Sister Slow to wake up after anesthesia Other Substance use disorder Surgical History Surgical History H/O colonoscopy H/O knee surgery H/O oophorectomy Hx of section Social History Social History Household Members: Spouse and Children Housing: House Are you a primary life care planner to a significant other at home: No Do you presently have visiting nurse or other home services: No Alcohol intake: current Alcohol intake frequency: holidays/special occasions only Alcohol type: beer Patient Tobacco Use Status: Former Tobacco user Quit Date: 2019 Tobacco use type: Cigarette Years Smoked: 15 years e-Cigarette/Vaping Use: Never Used Use of substances other than those prescribed or required for medical reasons: Yes Substance Use Type: Marijuana Substance Use Frequency: Occasionally Have you been hit, kicked, punched, or otherwise hurt by someone within the past year? 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 Cognitive needs: No Hearing needs: No Vision needs: No Meds Allergies Allergy/AdvReac Type Severity Reaction Status Date / Time codeine [Tylenol-Codeine] Allergy Severe Vomiting Verified 09/08/23 10:56 compazine Allergy Severe Seizure Verified 09/08/23 10:56 hydromorphone [From DILAUDID] Allergy Severe VOMITING,DI Verified 09/08/23 10:56 ZZY meperidine [Demerol] Allergy Severe Rash Verified 09/08/23 10:56 prednisone Allergy Severe skin Verified 09/08/23 10:56 blistering amoxicillin [AMOXICILLIN] Allergy Intermediate HIVES, Verified 09/08/23 10:56 THRUSH naproxen AdvReac Intermediate Family Verified 09/08/23 10:56 History of Kidney Disease Home Medications Medication Instructions Recorded Confirmed Last Taken Type ascorbic acid (vitamin C) 500 mg 500 mg PO DAILY 04/07/23 09/08/23 09/13/23 History tablet (Vitamin C) duloxetine 30 mg capsule,delayed 60 mg PO DAILY 04/07/23 09/08/23 09/13/23 History release (Cymbalta) amitriptyline 25 mg tablet 25 mg PO BEDTIME 09/01/23 09/08/23 09/12/23 History cyclobenzaprine 10 mg tablet 10 mg PO BEDTIME 09/01/23 09/08/23 09/12/23 History Assessment and Plan Final Anesthetic Review NPO: Yes ASA Class: III Final Preanesthetic Review: No Changes in Pt Med Stat, Meds/Allgs Chart Reviewed, Consent Obtained/Reviewed and Anes Risks/Benef Reviewed Patient Risk: Intermediate Procedure Risk: Low Anesthetic Plan Anesthetic Plan: MAC:, Spinal and Regional Block Disposition: Inp. Admit - Standard Bed
[2023-09-01 16:29] LABS: MRSA Nasal PCR NEGATIVE (Negative); SA Nasal PCR NEGATIVE (Negative)
[2023-09-13] VITALS (18 sets, daily range): BP systolic 136–168; BP diastolic 78–99; PULSE 82–101; RESP 16–20; TEMP 36–36.8; O2SAT 95–100; BMI 44.6; BMI 48.2
[2023-09-13] MEDS: Lactated Ringers 1,000 ML 100 ML IVCONT ×2 (08:07→23:38)
--- NOTE | 2023-09-13 09:50 | MHC.SHP ---
Pre-Procedural Eval Section A Date of Service: 09/13/23 The patient is an INPATIENT: No Changes since office visit: No Cold of Flu in the past 2 weeks, No New Medical Problems, No Changes in Medication and No Patient answered all questions The History & Physical has been completed within 30 days and I have reviewed it.: Yes Section B Chief Complaint: Unilateral primary osteoarthritis, left knee Allergies: Allergies Allergy/AdvReac Type Severity Reaction Status Date / Time codeine [Tylenol-Codeine] Allergy Severe Vomiting Verified 09/08/23 10:56 compazine Allergy Severe Seizure Verified 09/08/23 10:56 hydromorphone [From DILAUDID] Allergy Severe VOMITING,DI Verified 09/08/23 10:56 ZZY meperidine [Demerol] Allergy Severe Rash Verified 09/08/23 10:56 prednisone Allergy Severe skin Verified 09/08/23 10:56 blistering amoxicillin [AMOXICILLIN] Allergy Intermediate HIVES, Verified 09/08/23 10:56 THRUSH naproxen AdvReac Intermediate Family Verified 09/08/23 10:56 History of Kidney Disease Plan I have reviewed the history and physical and performed a pertinent physical examination on my patient. No changes have occurred unless specified. Time Spent With Patient Time: Total time managing care of this patient today ____ minutes.
--- NOTE | 2023-09-13 09:56 | PC.NURSE ---
block at 0930 without problem pt tolerated well timeout complted
--- NOTE | 2023-09-13 10:10 | PM.EVENT ---
Event Note Date of Service: 09/13/23 Event Note: Patient has the following comorbidities that will meet admission requirements and require continued monitoring s/p LTKA Morbid obesity anemia Hx of poor pain control Fibromyalgia Time Spent With Patient Time: Total time managing care of this patient today ____ minutes.
--- NOTE | 2023-09-13 12:18 | PM.OP ---
Brief Operative Note Date of Service: 09/13/23 Pre-op diagnosis: left knee OA Post-op diagnosis: same Procedure: left TKA Implants: [place] Triathalon press fit cruciate retaining 12/14/09 Surgeon: Red Alva MD Anesthesia: regional and spinal Was an Computer Forensic Examiner used for this Procedure?: Yes Computer Forensic Examiner: Claudine Aldrich Estimated blood loss (mL): 100 Tourniquet time (min): 705 IV fluids (mL): 1,000 Pathology: other Condition: stable Disposition: PACU
[2023-09-13] MEDS: oxyCODONE HCl Immed Release 5 MG TABLET PO ×2 (12:50→12:58)
[2023-09-13] MEDS: fentaNYL citrate/PF 100 MCG/2 ML VIAL 50 MCG IVPUSH ×3 (13:00→13:50)
[2023-09-13] MEDS: Acetaminophen 1,000 MG/100 ML PIGGYBACK 400 MG IV (13:05)
[2023-09-13] MEDS: Ketorolac Tromethamine 30 MG/ML VIAL IVPUSH (13:11)
--- NOTE | 2023-09-13 14:26 | PHA.MEDREC ---
Pharmacy Consult ? Medication Reconciliation Pharmacy has completed the medication reconciliation. Med rec reviewed by nursing (Felicia).
--- NOTE | 2023-09-13 15:06 | P.CONIM_ITS ---
History of Present Illness Data of Consult Service Date: 09/13/23 Primary Care Provider: Juliet Torres MD [facility] Reason for consult: medical managemet A 52 years old lady with PMH of OA, Obesity, depression, Fibromyalgia among others who presents for elective Lt TKR under orthopedic surgery service. She has no acute complaints other than pain at the site of surgery. reports that all her medical problems under good control. No chest pain, palpitations, SOB, nausea, vomiting, diarrhea or urinary symptoms. Review of Systems Review of Systems: Yes all other systems are reviewed and are negative [facility] Medical History Arm numbness left Neck pain Concussion Numbness and tingling in left arm Diverticulosis Tubular adenoma Osteoarthritis of left knee Chronic GERD Morbid obesity IBS (irritable bowel syndrome) Depression Asthma Anxiety disorder Chronic back pain Neuropathy delivery delivered Cholecystitis Fibromyalgia Arthritis Family History Maternal Grandmother Ovarian ca Sister Slow to wake up after anesthesia Other Substance use disorder Surgical History H/O colonoscopy H/O knee surgery H/O oophorectomy Hx of section Social History Household Members: Spouse Housing: House Are you a primary pet care worker to a significant other at home: No Do you presently have visiting nurse or other home services: No Alcohol intake: current Alcohol intake frequency: holidays/special occasions only Alcohol type: beer Comment: COUNTS CORRECT Patient Tobacco Use Status: Former Tobacco user Quit Date: 2019 Tobacco use type: Cigarette Years Smoked: 15 years e-Cigarette/Vaping Use: Never Used Substance Use Type: Marijuana Advance Directives Date on File: 04/13/23 service: No 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al status: unemployed 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 Cognitive needs: No Hearing needs: No Vision needs: No Meds Allergies Allergy/AdvReac Type Severity Reaction Status Date / Time codeine [Tylenol-Codeine] Allergy Severe Vomiting Verified 09/08/23 10:56 compazine Allergy Severe Seizure Verified 09/08/23 10:56 hydromorphone [From DILAUDID] Allergy Severe VOMITING,DI Verified 09/08/23 10:56 ZZY meperidine [Demerol] Allergy Severe Rash Verified 09/08/23 10:56 prednisone Allergy Severe skin Verified 09/08/23 10:56 blistering amoxicillin [AMOXICILLIN] Allergy Intermediate HIVES, Verified 09/08/23 10:56 THRUSH naproxen AdvReac Intermediate Family Verified 09/08/23 10:56 History of Kidney Disease Active Medications: Current Medications Acetaminophen (Acetaminophen 325 Mg Tablet) 650 mg PO Q6H PRN PRN Reason: Pain, Mild (Pain Scale 1-3) Albuterol Sulfate (Albuterol Sulfate 90 Mcg 8 Gm Inhaler) 2 puff INHALE RQ6H PRN PRN Reason: shortness of breath or wheezing Amitriptyline HCl (Amitriptyline Hcl 25 Mg Tablet) 25 mg PO BEDTIME [facility] Ascorbic Acid (Ascorbic Acid 500 Mg Tablet) 500 mg PO DAILY [facility] Celecoxib (Celecoxib 200 Mg Capsule) 200 mg PO BID [facility] Cyclobenzaprine HCl (Cyclobenzaprine Hcl 10 Mg Tablet) 10 mg PO BEDTIME [facility] Docusate Sodium (Docusate Sodium 100 Mg Capsule) 100 mg PO BID [facility] Duloxetine HCl (Duloxetine Hcl 60 Mg Capsule.Dr) 60 mg PO DAILY [facility] Enoxaparin Sodium (Enoxaparin Sodium 40 Mg/0.4 Ml Syringe) 40 mg SUBCUT Q24H [facility] Fentanyl (Fentanyl Citrate/Pf 100 Mcg/2 Ml Vial) 50 mcg IVPUSH Q10M PRN; Protocol PRN Reason: Pain, Moderate(Pain Scale 4-6) Last Admin: 09/13/23 13:50 Dose: 50 mcg Fluticasone Propionate (Fluticasone Propionate Nasal 16 Gm [place]) 1 spray NOSTRIL-B BID [facility] Hydromorphone HCl (Hydromorphone Hcl 0.5 Mg/0.5 Ml Syringe) 0.25 mg IVPUSH Q5M PRN; Protocol PRN Reason: Pain, Severe (Pain Scale 7-10) Hydromorphone HCl (Hydromorphone Hcl 0.5 Mg/0.5 Ml Syringe) 0.25 mg IVPUSH Q4H PRN; Protocol PRN Reason: Pain, Severe (Pain Scale 7-10) Lactated Ringer's (Lr) 1,000 mls @ 100 mls/hr IVCONT .Q10H JO Last Infusion: 09/13/23 14:43 Dose: 0 mls/hr Cefazolin Sodium 3 gm/ Sodium (Chloride) 100 mls @ 0 mls/hr IV POSTOP ONE Stop: 09/13/23 14:49 Loratadine (Loratadine 10 Mg Tablet) 10 mg PO DAILY [facility] Omeprazole (Omeprazole 40 Mg Capsule.Dr) 40 mg PO DAILY@0630 [facility] Ondansetron HCl (Ondansetron Hcl 4 Mg/2 Ml Vial) 4 mg IVPUSH Q8H PRN PRN Reason: Nausea and Vomiting Oxycodone HCl (Oxycodone Hcl Immed Release 5 Mg Tablet) 10 mg PO Q4H PRN PRN Reason: Pain, Moderate(Pain Scale 4-6) Oxycodone HCl (Oxycodone Hcl Er 10 Mg Tab.Er.12h) 10 mg PO BID [facility] Sodium Chloride (0.9 % Sodium Chloride Flush 3 Ml Syringe) 3 ml IVFLUSH QSHIFT [facility] Tolterodine Tartrate (Tolterodine Tartrate [place] 2 Mg Cap.Er.24h) 2 mg PO BID [facility] Home Medications Medication Instructions Recorded Confirmed Last Taken Type ascorbic acid (vitamin C) 500 mg 500 mg PO DAILY 04/07/23 09/08/23 09/13/23 History tablet (Vitamin C) duloxetine 30 mg capsule,delayed 60 mg PO DAILY 04/07/23 09/08/23 09/13/23 Histo ry release (Cymbalta) amitriptyline 25 mg tablet 25 mg PO BEDTIME 09/01/23 09/08/23 09/12/23 History cyclobenzaprine 10 mg tablet 10 mg PO BEDTIME 09/01/23 09/08/23 09/12/23 History doxycycline hyclate 100 mg capsule 100 mg PO BID 09/13/23 09/13/23 Unknown History omeprazole 40 mg capsule,delayed 40 mg PO DAILY@0630 09/13/23 09/13/23 09/13/23 History release Physical Exam Vital Signs and Narrative: Vital Signs: Last Vital Signs Temp 96.8 F 09/13/23 14:45 Pulse 92 09/13/23 14:45 Resp 16 09/13/23 14:45 BP 141/87 H 09/13/23 14:45 Pulse Ox 99 09/13/23 14:45 O2 Del Method Room Air 09/13/23 14:45 BMI result Body Mass Index 44.6 Const: Other: Constitutional : Awake, interactive, obese Neck : Normal inspection, Supple Cardiovascular : RRR, no JVP, no lower extremity edema Respiratory : good bilateral air entry, no crackles, wheezes or rhonchi Gastrointestinal: soft, lax, Normal bowel sounds, Non tender Skin : Warm, Dry, Lt Knee in dressing Neurological : Alert & oriented x3, No focal deficit Assessment and Plan (1) Arthritis: Status: Acute Plan A 52 years old lady with PMH of OA, Obesity, depression, Fibromyalgia among others who presents for elective Lt TKR under orthopedic surgery service. Left knee TKR Orthopedic surgery following pain management Hx Depression Continue Amitriptyline and Cymbalta GERD Omerpazole Continue rest of her home medications. Thank you for the consult, will sign off. plz contact hospitalist team for any questions
[2023-09-13] MEDS: HYDROmorphone HCl 0.5 MG/0.5 ML SYRINGE 0.25 MG IVPUSH (15:46)
[2023-09-13] MEDS: 0.9 % Sodium Chloride Flush 3 ML SYRINGE IVFLUSH ×2 (15:47→23:37)
[2023-09-13] MEDS: ceFAZolin Sodium 3 GM in 0.9 % Sodium Chloride 100 ML IV (18:03)
[2023-09-13] MEDS: oxyCODONE HCl Immed Release 5 MG TABLET 10 MG PO ×2 (18:05→23:37)
[2023-09-13] MEDS: Tolterodine Tartrate LA 2 MG CAP.ER.24H PO (20:09)
[2023-09-13] MEDS: Celecoxib 200 MG CAPSULE PO (20:09)
[2023-09-13] MEDS: Docusate Sodium 100 MG CAPSULE PO (20:10)
[2023-09-13] MEDS: Amitriptyline HCl 25 MG TABLET PO (20:10)
[2023-09-13] MEDS: Cyclobenzaprine HCl 10 MG TABLET PO (20:10)
[2023-09-13] MEDS: oxyCODONE HCl ER 10 MG TAB.ER.12H PO (20:10)
[2023-09-13] MEDS: Fluticasone Propionate Nasal 16 GM SPRAY 1 SPRAY NOSTRIL-B (20:11)
[2023-09-14 03:44] VITALS: BP 133/73; PULSE 96; RESP 14; TEMP 36.1; O2SAT 97
[2023-09-14] MEDS: oxyCODONE HCl Immed Release 5 MG TABLET 10 MG PO ×4 (03:52→16:04)
[2023-09-14] MEDS: Omeprazole 40 MG CAPSULE.DR PO (06:16)
[2023-09-14] MEDS: Lactated Ringers 1,000 ML 100 ML IVCONT (06:18)
[2023-09-14 06:38] LABS: MANUAL DIFF FLAG NO
[2023-09-14 06:44] LABS: Basophils Percent Auto 0.6 % (0-2); Eosinophils Absolute Auto 0.5 X10*3/uL (0.0-0.4); Eosinophils Percent Auto 7.7 % (0-4); Hematocrit 31.7 % (37.0-47.0); Hemoglobin 10.5 g/dl (12.0-16.0); Imm Gran Abs Auto 0.02 X10*3/uL (0.00-0.03); Imm Gran Pct Auto 0.3 % (0.0-0.4); Lymphocytes Absolute Auto 1.5 X10*3/uL (1.2-4.9); Lymphocytes Percent Auto 22.2 % (20-40); Mean Corpuscular HGB Conc 33.1 g/dl (31.0-35.0); Mean Corpuscular Hemoglobin 31.3 pg (27.0-33.0); Mean Corpuscular Volume 94.6 fL (80.0-98.0); Mean Platelet Volume 9.7 fL (9.4-12.3); Monocytes Absolute Auto 0.5 X10*3/uL (0.1-1.2); Monocytes Percent Auto 7.2 % (2-11); Neutrophils Absolute Auto 4.1 x10*3/uL (2.0-8.3); Platelet Count 293 X10*3/uL (160-400); Red Blood Count 3.35 X10*6/uL (4.20-5.50); Red Cell Distribution Width 13.2 % (11.0-16.0); White Blood Count 6.6 X10*3/uL (4.8-10.8)
[2023-09-14 06:57] LABS: Anion Gap 8 (12-20); Blood Urea Nitrogen 20 mg/dL (9-16); Calcium 8.5 mg/dL (8.4-10.2); Carbon Dioxide 24 mmol/L (22-29); Chloride 107 mmol/L (96-108); Creatinine Clr Calc Pharmacy 108.1; Estimated Glomerular Filt Rate > 60; Glucose Fasting 98 mg/dL (60-99); Potassium 3.9 mmol/L (3.3-5.1); Sodium 135 mmol/L (135-145)
--- NOTE | 2023-09-14 07:23 | PM.PNORT ---
Subjective Subjective Date of Service: 09/14/23 Interval history: POD1 s/p LTKA Patient is resting in bed comfortably No overnight events Reports pain No additional complaints Physical Exam Vital Signs: Vital Signs: Last Vital Signs Temp 96.9 F 09/14/23 03:44 Pulse 96 09/14/23 03:44 Resp 14 09/14/23 03:44 BP 133/73 09/14/23 03:44 Pulse Ox 97 09/14/23 03:44 O2 Del Method Room Air 09/14/23 03:44 BMI result Body Mass Index 48.2 Const: General: cooperative, healthy appearing and no acute distress Resp: Effort & Inspection: normal respiratory effort and able to speak in complete sentences Cardio: Rate: regular rate Peripheral pulses: Peripheral pulses 2+ throughout GI: Palpation (GI): Soft to palpation Skin: Lesions: no lesions Rashes: no rashes Extrem: Other: left knee dressing is c/d/i. Able to dorsi/plantar flex. Calf is supple and nontender. Sensation intact. Pedal pulse intact. Procedures Date of Service Date of Service: 09/14/23 Progress Note: A&P Assessment and plan (1) Status post total knee replacement, left: Status: Acute Plan Continue pain mgmnt Begin Lovenox for dvt ppx begin PT for LTKA Dispo planning-Pending PT eval, pain mgmnt Patient will need continued admission for managment of uncontrolled pain, physical therapy for safe discharge home, obesity management with increased risk for DVT, fibromyalgia Time Spent With Patient Time: Total time managing care of this patient today ____ minutes. Quality Stroke Does the patient have a stroke diagnosis?: No VTE Prior VTE?: No VTE Risk Level:: Surgical - high VTE Device Contraindication: N/A - Device Ordered VTE Drug Contraindication: N/A - Med Ordered
[2023-09-14 07:31] VITALS: BP 150/69; PULSE 91; RESP 20; TEMP 36.2; O2SAT 100
[2023-09-14] MEDS: Ascorbic Acid 500 MG TABLET PO (07:39)
[2023-09-14] MEDS: DULoxetine HCl 60 MG CAPSULE.DR PO (07:39)
[2023-09-14] MEDS: Loratadine 10 MG TABLET PO (07:39)
[2023-09-14] MEDS: Celecoxib 200 MG CAPSULE PO (07:40)
[2023-09-14] MEDS: Docusate Sodium 100 MG CAPSULE PO ×2 (07:40→19:59)
[2023-09-14] MEDS: Fluticasone Propionate Nasal 16 GM SPRAY 1 SPRAY NOSTRIL-B (07:40)
[2023-09-14] MEDS: Tolterodine Tartrate LA 2 MG CAP.ER.24H PO ×2 (07:40→19:59)
--- NOTE | 2023-09-14 08:04 | HO.POSTANES ---
Post Anesthesia Evaluation Post Anesthesia Evaluation Date of Service: 09/14/23 Vital Signs: Vital Signs Temp Pulse Resp BP Pulse Ox O2 Del Method 09/14/23 07:31 97.1 F 91 20 150/69 H 100 Room Air 09/14/23 03:44 96.9 F 96 14 133/73 97 Room Air Anesthesia: Spinal and Nerve Block Mental Status: Awake Pain Control: Satisfactory Nausea/Vomiting: None Hydration: Adequate Anesthesia-Related Issues: No Anes. Related Issues
[2023-09-14] MEDS: oxyCODONE HCl ER 10 MG TAB.ER.12H PO (08:59)
[2023-09-14] MEDS: Enoxaparin Sodium 40 MG/0.4 ML SYRINGE SUBCUT (11:05)
[2023-09-14] MEDS: Acetaminophen 325 MG TABLET 650 MG PO (11:05)
--- NOTE | 2023-09-14 11:23 | MHC.CM.PN ---
CM MET WITH PT AT BEDSIDE. PT IS INDEPENDENT AT BASELINE. +HCP AT HOME PCP DR. BEDOYA DP: HOME WITH [facility] PRE-PLANNED. REFERRAL SENT. PT WILL BE ON LOVENOX WAS HER PREVIOUS SURGERY AND HER FRIEND WILL BE ADMINISTERING. [facility] WILL TRANSPORT HOME.
--- NOTE | 2023-09-14 14:13 | W.PM.OPN ---
Operative Note Operative Note Date of Service: 09/13/23 Narrative: Date of Service: 09/13/23 Pre-op diagnosis: left knee OA Post-op diagnosis: same Procedure: left TKA Implants: [place] Triathalon press fit cruciate retaining 12/14/09 Surgeon: Red Alva MD Anesthesia: regional and spinal Was an Utility Sales Representative used for this Procedure?: Yes Utility Sales Representative: Claudine Aldrich Estimated blood loss (mL): 100 Tourniquet time (min): 705 IV fluids (mL): 1,000 Pathology: other Condition: stable Disposition: PACU Procedure in detail: The patient was brought to the operating room and prepped and draped in standard sterile fashion. A time-out was called to identify proper site proper procedure proper surgeon and IV antibiotics were administered. 1 g of IV tranexamic acid was administered. I began by making a midline incision to the retinaculum and performed a medial parapatellar arthrotomy. The patella was translated laterally and the knee was flexed up. There was end stage medial and anterior compartment disease. I performed a small medial peel and resected the infrapatellar fat pad. [place]'s line was then used to drill my intramedullary femoral guide and my distal femur cut of 10 mm was made in 5 degrees of valgus while protecting the soft tissues. I then measured a #4 femur and placed my cutting guide and made my anterior posterior and chamfer cuts protecting the soft tissues at all times. Once I was satisfied with my cuts I turned my attention to the tibia. I removed the meniscus medially and laterally and , using an external cutting guide, in line with the tibial crest and the third ray, I made my distal tibial cut in 3 deg slope of while protecting the PCL and the posterior soft tissues at all times. An extension block was used to confirm appropriate amount of bony resection. I then sized a #4 tibia and once I was satisfied that there was complete tibial coverage I placed my trial and with the trial femur in place took the knee through range of motion. I was satisfied with the extension and flexion as well as the stability and balance at 0, 30 and 90 degrees. I then turned my attention to the patella where I removed 1 cm from the undersurface of the patella and then trialed a 32a patellar button. Again the knee was taken through range of motion I was satisfied with the tracking. I then returned to the femur and drilled my femoral lug holes and prepared the tibia. A femoral bone plug was placed and the knee was irrigated copiously. I then press fit the patella, tibia and femur in standard fashion. I trialed different inserts until I selected a #10 insert. The final insert was placed and I irrigated copiously and local TXA was performed. A Werewolf cautery wand was used to maintain hemostasis over the capsule and meniscal beds, the gutters and peripatellar soft tissues. The knee was then closed with a running Quill suture, a 3 0 Vicryl and gertrudis on the skin. Patient was then placed in sterile dressing and brought to recovery room in stable condition there were no known complications.
[2023-09-14 15:02] VITALS: BP 139/85; PULSE 101; RESP 18; TEMP 36.1; O2SAT 97
--- NOTE | 2023-09-14 18:34 | W.MHC.F2F ---
Service Date Service Date: 09/14/23 Encounter Date of encounter: 09/15/23 Reasons for Services Signs and symptoms assessed: s/p LTKA. Pt. is considered homebound due to recent surgery. Unable to drive, poor balance, poor gait mechanics. Reason for physical therapy: home safety and mobility, therapeutic exercises, restore joint function, gait/transfer training, assess need for DME and ADL training Homebound: Leaving the home is medically contraindicated at this time without the asist of a device and/or another person due th the listed conditions above and below. Reason homebound: unsteady gait / fall risk, leg weakness, pain with ambulation, pain with transfers, poor balance / fall risk and unable to drive Certification: Based on the above findings, I certify that this patient is confined to the home and needs intermittent chcf care, physical therapy and/or speech therapy, or continues to need occupational therapy. The patient is under my care, and I have initiated the establishment of the plan of care. The patient will be followed by a physician who will periodically review the plan of care. Time Spent With Patient Time: Total time managing care of this patient today ____ minutes.
--- NOTE | 2023-09-14 18:35 | PM.DS ---
DS: Providers Provider Date of Service: 09/15/23 Primary care physician: Juliet Torres MD Consults: 09/13/23 14:15 Consult to Hospitalist Routine Comment: Consulting Provider: Hospitalist Reason For Exam: routine medical management DS: Diagnosis Discharge Diagnosis (1) Status post total knee replacement, left: Status: Acute DS: Summary Hospital Course Hospital Course: The patient underwent a successful right total knee arthroplasty, they were transferred to PACU and then to the floor to recover. During their stay, their vitals were stable, afebrile at 97.8. Labs were unremarkable, H/H 9.7/28.6. POD 1 they were started on Aspirin 325mg po bid for DVT ppx, they also received Physical Therapy services twice a day. Prior to discharge, their dressing was clean dry and intact, and the plan was to be discharged home with VNA services. Time Attestation Discharge coordination time: Less than 30 minutes Quality: Safe Use of Opioids Does Pt have an Active Cancer Diagnosis on the Problem List?: No Quality: Stroke Does the patient have a stroke diagnosis?: No Physical Exam Vital Signs: Vital Signs: Last Vital Signs Temp 96.9 F 09/14/23 15:02 Pulse 101 H 09/14/23 15:02 Resp 18 09/14/23 15:02 BP 139/85 09/14/23 15:02 Pulse Ox 97 09/14/23 15:02 O2 Del Method Room Air 09/14/23 15:02 BMI result Body Mass Index 48.2 Const: General: cooperative, healthy appearing and no acute distress Resp: Effort & Inspection: normal respiratory effort and able to speak in complete sentences Cardio: Rate: regular rate Peripheral pulses: Peripheral pulses 2+ throughout GI: Palpation (GI): Soft to palpation Skin: Lesions: no lesions Rashes: no rashes Extrem: Other: left knee dressing is c/d/i. Able to dorsi/plantar flex. Calf is supple and nontender. Sensation intact. Pedal pulse intact. DS: Data Data Completed and Pending Completed studies during hospitalization [Text1]: Procedures Introduction of Anesthetic Agent into Peripheral Nerves and Plexi, Percutaneous Approach (04/13/23) Replacement of Right Knee Joint with Synthetic Substitute, Uncemented, Open Approach (04/13/23) Pending studies at discharge: Pending at discharge 01/02/24 11:56 Surgical [PTH] Routine Labs on day of discharge: Laboratory Results - last 24 hr 09/14/23 09/14/23 05:47 05:48 WBC 6.6 RBC 3.35 L Hgb 10.5 L Hct 31.7 L MCV 94.6 MCH 31.3 MCHC 33.1 RDW 13.2 Plt Count 293 MPV 9.7 Immature Gran % (Auto) 0.3 Neut % (Auto) 62.0 Lymph % (Auto) 22.2 [place] % (Auto) 7.2 Eos % (Auto) 7.7 H Baso % (Auto) 0.6 Lymph # (Auto) 1.5 [place] # (Auto) 0.5 Eos # (Auto) 0.5 H Baso # (Auto) 0.0 Abs Immat Gran (auto) 0.02 Absolute Neuts (auto) 4.1 Absolute Nucleated RBC 0.000 Nucleated RBC % (auto) 0.0 Sodium 135 Potassium 3.9 Chloride 107 Carbon Dioxide 24 Anion Gap 8 L BUN 20 H Creatinine 0.87 Estim Creat Clear Calc 108.1 Estimated GFR > 60 Fasting Glucose 98 Calcium 8.5 D Discharge Plan Discharge Patient Disposition: Home, Self-Care Referrals: Juliet Torres MD [Primary Care Provider] - 1 Week Discharge Medications: New celecoxib 200 mg Capsule 200 mg PO BID 30 Days Qty: 60 0RF enoxaparin 40 mg/0.4 mL Syringe 40 mg subcut Q24H 42 Days Qty: 16.8 0RF docusate sodium 100 mg Capsule 100 mg PO BID 30 Days Qty: 60 0RF oxycodone 10 mg tablet 10 mg PO Q4H PRN (Reason: pain (scale score 4-6)) 7 Days Qty: 42 0RF Rx Instructions: Partial Fill upon patient request. Continued albuterol sulfate [ProAir HFA] 90 mcg/actuation HFA aerosol inhaler 2 puff inhalation Q6H PRN (Reason: shortness of breath or wheezing) 90 Days Qty: 8.5 0RF Rx Instructions: dispense which ever albuterol inhaler is covered under patients insurance loratadine 10 mg tablet 10 mg PO DAILY 90 Days Qty: 90 0RF tolterodine [Detrol] 2 mg tablet 2 mg PO BID 90 Days Qty: 180 0RF fluticasone propionate 50 mcg/actuation spray,suspension 1 spray intranasal BID Qty: 48 1RF duloxetine [Cymbalta] 30 mg capsule,delayed release(DR/EC) 60 mg PO DAILY ascorbic acid (vitamin C) [Vitamin C] 500 mg Tablet 500 mg PO DAILY cyclobenzaprine 10 mg tablet 10 mg PO BEDTIME amitriptyline 25 mg tablet 25 mg PO BEDTIME omeprazole 40 mg capsule,delayed release(DR/EC) 40 mg PO DAILY@0630 doxycycline hyclate 100 mg capsule 100 mg PO BID Discontinued acetaminophen 325 mg tablet 650 mg PO Q6H PRN (Reason: for mild pain) Qty: 240 3RF celecoxib 200 mg capsule 200 mg PO BID Qty: 60 3RF Discharge Orders: Discharge Order (Routine); Ordered 09/15/23 Ordered By: Claudine Aldrich Activity on Discharge: Use cane or walker Activity Restrictions/Additional Instructions: Physical Therapy for ROM 0-120, quad strength, gait training. Use walker for ambulation Limit stair climbing, No shower, No tub bath, No driving Continue anticoagulant Keep Aquacel dressing clean, dry and intact. Follow up with orthopedics in 2 weeks
[2023-09-14] MEDS: Amitriptyline HCl 25 MG TABLET PO (19:59)
[2023-09-14] MEDS: Cyclobenzaprine HCl 10 MG TABLET PO (19:59)
[2023-09-14 20:00] VITALS: BP 144/68; PULSE 100; RESP 18; TEMP 36; O2SAT 98
[2023-09-15 03:46] VITALS: BP 135/72; PULSE 101; RESP 14; TEMP 36.1; O2SAT 95
[2023-09-15] MEDS: Omeprazole 40 MG CAPSULE.DR PO (05:23)
[2023-09-15 06:29] LABS: Anion Gap 12 (12-20); Blood Urea Nitrogen 17 mg/dL (9-16); Calcium 8.5 mg/dL (8.4-10.2); Carbon Dioxide 24 mmol/L (22-29); Chloride 107 mmol/L (96-108); Creatinine Clr Calc Pharmacy 114.8; Estimated Glomerular Filt Rate > 60; Glucose Fasting 96 mg/dL (60-99); Potassium 3.7 mmol/L (3.3-5.1); Sodium 139 mmol/L (135-145)
[2023-09-15 07:30] VITALS: BP 131/81; PULSE 97; RESP 18; TEMP 36.6; O2SAT 98
[2023-09-15] MEDS: Fluticasone Propionate Nasal 16 GM SPRAY 1 SPRAY NOSTRIL-B (07:45)
[2023-09-15] MEDS: Ascorbic Acid 500 MG TABLET PO (07:45)
[2023-09-15] MEDS: Loratadine 10 MG TABLET PO (07:45)
[2023-09-15] MEDS: DULoxetine HCl 60 MG CAPSULE.DR PO (07:46)
--- NOTE | 2023-09-15 08:46 | PM.PNORT ---
Subjective Subjective Date of Service: 09/15/23 Interval history: POD2 s/p LTKA Patient is resting in bed comfortably No overnight events Reports pain No additional complaints Physical Exam Vital Signs: Vital Signs: Last Vital Signs Temp 97.8 F 09/15/23 07:30 Pulse 97 09/15/23 07:30 Resp 18 09/15/23 07:30 BP 131/81 09/15/23 07:30 Pulse Ox 98 09/15/23 07:30 O2 Del Method Room Air 09/15/23 07:30 BMI result Body Mass Index 48.2 Const: General: cooperative, healthy appearing and no acute distress Resp: Effort & Inspection: normal respiratory effort and able to speak in complete sentences Cardio: Rate: regular rate Peripheral pulses: Peripheral pulses 2+ throughout GI: Palpation (GI): Soft to palpation Skin: Lesions: no lesions Rashes: no rashes Extrem: Other: left knee dressing is c/d/i. Able to dorsi/plantar flex. Calf is supple and nontender. Sensation intact. Pedal pulse intact. Procedures Date of Service Date of Service: 09/15/23 Progress Note: A&P Assessment and plan (1) Status post total knee replacement, left: Status: Acute Plan Continue pain mgmnt Continue Lovenox for dvt ppx Continue PT for LTKA Dispo planning-Pending PT eval, pain mgmnt Patient will need continued admission for managment of uncontrolled pain, physical therapy for safe discharge home, obesity management with increased risk for DVT, fibromyalgia Time Spent With Patient Time: Total time managing care of this patient today ____ minutes. Quality Stroke Does the patient have a stroke diagnosis?: No VTE Prior VTE?: No VTE Risk Level:: Surgical - high VTE Device Contraindication: N/A - Device Ordered VTE Drug Contraindication: N/A - Med Ordered
--- NOTE | 2023-09-15 12:11 | MHC.CM.PN ---
PT WILL DC HOME TODAY WITH [facility] SERVICES PER NOTES, PTS FRIEND WILL BE ADMINISTERING LOVENOX PT HAS PRIVATE TRANSPORT HOME
== END 2023-09-15 14:13 | disposition home health service (06) ==
LOC: HO.SSS 07:37 → HO.S3 14:17
PROVIDERS: Orthopaedic Surgery; Physician Assistant; Absent Provider Physician Assistant; PCP Internal Medicine; Visit Provider Physician Assistant
PROC: (CPT 27447; principal; 2023-09-13 09:40)
DX: M17.12 Unilateral primary osteoarthritis, left knee (principal); M25.562 Pain in left knee; G89.29 Other chronic pain; G62.9 Polyneuropathy, unspecified; M79.7 Fibromyalgia; M54.9 Dorsalgia, unspecified; J45.909 Unspecified asthma, uncomplicated; F32.A Depression, unspecified; E66.01 Morbid (severe) obesity due to excess calories; Z68.41 Body mass index [BMI] 40.0-44.9, adult; R20.0 Anesthesia of skin; Z79.51 Long term (current) use of inhaled steroids; Z79.899 Other long term (current) drug therapy; Z88.1 Allergy status to other antibiotic agents; Z88.5 Allergy status to narcotic agent; Z88.8 Allergy status to other drugs, medicaments and biological substances; Z98.890 Other specified postprocedural states; Z87.891 Personal history of nicotine dependence
CPT/HCPCS: 27447; 36415; 73560; 80048; 85025; 86850; 86900; 86901; 87640; 87641; 88305; 88311; 97110; 97116; 97161; 97530; 99024; C1776; J0131; J0690; J1170; J1650; J1885; J2704; J2795; J3010; J7120

== ENCOUNTER → 2023-09-13 07:30 | Outpatient (BNV) | payer OTHER, SELFPAY | PROVIDERS: Absent Provider Physician Assistant; PCP Internal Medicine; Visit Provider Student in an Organized Health Care Education/Training Program | DX: M17.12 Unilateral primary osteoarthritis, left knee (principal) | CPT/HCPCS: 99221 ==

== ENCOUNTER → 2023-09-13 07:30 | Outpatient (BNV) | payer OTHER, SELFPAY | PROVIDERS: Absent Provider Physician Assistant; PCP Internal Medicine; Visit Provider Physician Assistant | DX: Z96.652 Presence of left artificial knee joint (principal) | CPT/HCPCS: 27447; 99024 ==

== ENCOUNTER 2023-09-23 09:57 | Outpatient (AMB) | payer OTHER, SELFPAY ==
--- NOTE | 2023-09-23 10:03 | A.OFFPC_ITS ---
Vital Signs 09/23/23 10:04 Height 5 ft 6.5 in Weight 274 lb 6 oz BMI 43.6 BP 142/96 H Blood Pressure Location Rt brachial Position Sitting Pulse 118 H Pulse Source Pulse Oximeter Pulse Oximetry (%) 99 Oxygen Delivery Method Room Air Intake Visit Reasons: Post Op, left knee replacement Allergies codeine [Tylenol-Codeine] Allergy (Severe, Verified 09/23/23 10:04) Vomiting compazine Allergy (Severe, Verified 09/23/23 10:04) Seizure hydromorphone [From DILAUDID] Allergy (Severe, Verified 09/23/23 10:04) VOMITING,DIZZY meperidine [Demerol] Allergy (Severe, Verified 09/23/23 10:04) Rash prednisone Allergy (Severe, Verified 09/23/23 10:04) skin blistering amoxicillin [AMOXICILLIN] Allergy (Intermediate, Verified 09/23/23 10:04) HIVES, THRUSH naproxen Adverse Reaction (Intermediate, Verified 09/23/23 10:04) Family History of Kidney Disease Medication List - Last Reconciled 09/23/23 by Juliet Torres MD albuterol sulfate 90 mcg/actuation (ProAir HFA) 2 puffs inhalation Q6H PRN 90 days amitriptyline 25 mg PO BEDTIME ascorbic acid (vitamin C) (Vitamin C) 500 mg PO DAILY celecoxib 200 mg PO BID 30 days cyclobenzaprine 10 mg PO BEDTIME docusate sodium 100 mg PO BID 30 days doxycycline hyclate 100 mg PO BID duloxetine (Cymbalta) 60 mg PO DAILY enoxaparin 40 mg (0.4 mL) subcut Q24H 42 days fluticasone propionate 50 mcg/actuation 1 spray intranasal BID loratadine 10 mg PO DAILY 90 days omeprazole 40 mg PO DAILY@0630 oxycodone 10 mg PO Q6H PRN 7 days tolterodine (Detrol) 2 mg PO BID 90 days Tobacco use date assessed: 09/23/23 Dental Screening Dental Screen Date: 09/23/23 Did you have a dental visit in the last 12 months?: No Did you have a dental problem in the last 6 months where you did not have access to dental care?: No Was dental information given to patient?: Patient has dentist HPI Post Op, left knee replacement HPI Details Patient is a 53-year-old female with a history of depression came in today to be evaluated post off left knee replacement surgery few days ago early this month Patient is recovering from the surgery Currently she is on oxycodone 10 mg through orthopedic for pain management Last time she had labs her hemoglobin dropped to 9.7 It seems like iron-deficiency anemia post surgery I am starting her on iron supplement to be taken b.i.d. with vitamin-C, patient was instructed to avoid dairy products with iron She already have medication for constipation at home she will start taking that as well. Her blood pressure is slightly elevated today we will continue to monitor that. Patient is to repeat labs again in 4 weeks to monitor H&H She has a regular follow-up appointment in November. [facility] Medical History Arm numbness left Neck pain Concussion Numbness and tingling in left arm Diverticulosis Tubular adenoma Osteoarthritis of left knee Chronic GERD Morbid obesity IBS (irritable bowel syndrome) Depression Asthma Anxiety disorder Chronic back pain Neuropathy delivery delivered Cholecystitis Fibromyalgia Arthritis Surgical History H/O colonoscopy H/O knee surgery H/O oophorectomy Hx of section Family History Maternal Grandmother Ovarian ca Sister Slow to wake up after anesthesia Other Substance use disorder Social History Household Members: Spouse Housing: House Are you a primary manager progressive care to a significant other at home: No Do you presently have visiting nurse or other home services: No Alcohol intake: current Alcohol intake frequency: holidays/special occasions only Alcohol type: beer Comment: COUNTS CORRECT Patient Tobacco Use Status: Former Tobacco user Quit Date: 2019 Tobacco use type: Cigarette Years Smoked: 15 years e-Cigarette/Vaping Use: Never Used Substance Use Type: Marijuana Advance Directives Date on File: 04/13/23 service: No 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al status: unemployed 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 1. Little interest or pleasure in doing things: several days 2. Feeling down, depressed, or hopeless: several days 3. Trouble falling or staying asleep, or sleeping too much: more than half the days 4. Feeling tired or having little energy: more than half the days 5. Poor appetite or overeating: several days 6. Feeling bad about yourself - or that you are a failure or have let yourself or your family down: several days 7. Trouble concentrating on things, such as reading the newspaper or watching television: several days 8. Moving or speaking so slowly that other people could have noticed. Or the opposite - being so fidgety or restless that you have been moving around a lot more than usual: not at all 9. Thoughts that you would be better off or of hurting yourself in some way: not at all Total score: 9 Depression Screening Interpretation: Negative Depression Screening Done: Yes 38147 - PHQ-9 Billing: Yes Source: Developed by Drs. Joshua Munoz, Claudia Taylor, Kojo Frye and colleagues, with an educational jessica from [facility]. Thrive Questionnaire Date Thrive assessed: 09/23/23 I am a: Patient What is your living situation today?: I have a steady place to live Within the past 12 months, did the food you bought not last and you didn't have the money to get more?: Sometimes True Within the past 12 months, did you worry whether your food would run out before you got money to buy more?: Often true Do you have trouble paying for medicines?: No Do you have trouble getting transportation to medical appointments?: No Do you have trouble paying your heating and electricity bill?: Yes Do you have trouble taking care of your child, family member or friend?: No Do you have trouble with day-to-day activities such as bathing, preparing meals, shopping, managing finances, etc.?: Yes Are you currently unemployed and looking for a job?: Yes Are you interested in more education?: No Please select the resources that you would like help with: None Currently or been in a relationship where the following occur: no concerns reported AUDIT C Alcohol Use Questionnaire (AUDIT-C) 1. How often do you have a drink containing alcohol?: Monthly or less 2. How many drinks containing alcohol do you have on a typical day when you are drinking?: 1 or 2 3. How often do you have six or more drinks on one occasion?: Never Total Score: 1 Score Reviewed/Action Taken: Yes MIKE-7 AMB Questionnaire MIKE-7 Date MIKE - 7 assessed: 09/23/23 Feeling nervous, anxious, or on edge: 2 = More than half the days Not being able to stop or control worryin = More than half the days Worrying too much about different things: 3 = Nearly every day Trouble relaxin = Nearly every day Being so restless that it is hard to sit still: 2 = More than half the days Becoming easily annoyed or irritable: 2 = More than half the days Feeling afraid as if something awful might happen: 0 = Not at all Total MIKE-7 score (0-4 normal; 5-9 mild; 10-14 moderate; 15-21 severe): 14 Source: Developed by Drs. Joshua Munoz, Claudia Taylor, Kojo Frye and colleagues, with an educational jessica from [facility]. MIKE-7 Assessment Billing MIKE-7 Assessment Tool: MIKE-7 Assessment 93208 Review of Systems Const Denies chills and Denies fever(s) ENT Denies epistaxis and Denies nasal discharge Card Denies chest pain Resp Denies chest congestion, Denies cough and Denies hemoptysis GI Denies diarrhea and Denies nausea Skin/Breast Denies rash Neuro Reports no additional complaints Psych Reports no additional complaints Endo Reports no additional complaints Physical exam (Primary Care) Vital Signs: Last Vital Signs Pulse 118 H 09/23/23 10:04 BP 142/96 H 09/23/23 10:04 Pulse Ox 99 09/23/23 10:04 Oxygen Delivery Method Room Air 09/23/23 10:04 BMI result Body Mass Index 43.6 Tobacco/Smoking Status: Tobacco use Status Tobacco use date assessed 09/23/23 09/23/23 10:05 Patient Tobacco Use Status Former Tobacco user 09/23/23 10:05 Tobacco use type Cigarette 09/23/23 10:05 e-Cigarette/Vaping Use Never Used 09/23/23 10:05 PHQ-9: PHQ-9 Score PHQ-9: Total score 9 09/23/23 10:26 Depression Screening Interpretation: Negative Thrive Assessment: Date of Thrive Assessment Date Thrive assessed 09/23/23 09/23/23 10:19 Currently or been in a relationship where the following occur: no concerns reported Const General: cooperative, comfortable and no acute distress Orientation/consciousness: patient oriented x3 HENMT Head: Yes normocephalic Eyes General: appearance normal, both eyes and all related structures Neck Neck: Yes supple Resp Effort & Inspection: normal respiratory effort, no cough and no stridor Cardio Rhythm: regular rhythm Heart sounds: S1 normal heart sound present and S2 normal heart sound present Skin General skin exam: turgor normal Neuro General: patient oriented x3, tone normal and moves all extremities Extrem Other: Healing from left knee surgery using walker for ambulation Assessment and Plan Assessment & Plan (1) Iron deficiency anemia: Code(s): D50.9 - Iron deficiency anemia, unspecified Qualifiers: Iron deficiency anemia type: other iron deficiency Qualified Code(s): D50.8 - Other iron deficiency anemias (2) Status post total knee replacement, left: Code(s): Z96.652 - Presence of left artificial knee joint (3) Major depression, recurrent: Code(s): F33.9 - Major depressive disorder, recurrent, unspecified Qualifiers: Active/Remission status: in full remission Qualified Code(s): F33.42 - Major depressive disorder, recurrent, in full remission Plan Patient is a 53-year-old female with a history of depression came in today to be evaluated post off left knee replacement surgery few days ago early this month Patient is recovering from the surgery Currently she is on oxycodone 10 mg through orthopedic for pain management Last time she had labs her hemoglobin dropped to 9.7 It seems like iron-deficiency anemia post surgery I am starting her on iron supplement to be taken b.i.d. with vitamin-C, patient was instructed to avoid dairy products with iron She already have medication for constipation at home she will start taking that as well. Her blood pressure is slightly elevated today we will continue to monitor that. Patient is to repeat labs again in 4 weeks to monitor H&H She has a regular follow-up appointment in November. Orders: Orders Complete Blood Count Auto Diff 3 Weeks D50.9 - Iron deficiency anemia, unspeci fied, Z96.652 - Presence of left artificial knee joint Ferritin 3 Weeks D50.9 - Iron deficiency anemia, unspecified, Z96.652 - Presence of left artificial knee joint IRON PROFILE 3 Weeks D50.9 - Iron deficiency anemia, unspecified, Z96.652 - Presence of left artificial knee joint Medications: New ferrous sulfate 324 mg PO BID 180 tabs 0RF 90 days Coding Level of Care Code Est Pt Level 4 (41797) Diagnoses Other iron deficiency anemia D50.8 Iron deficiency anemia type: other iron deficiency Status post total knee replacement, left Z96.652 Recurrent major depressive disorder, in full remission F33.42 Active/Remission status: in full remission Additional Codes MIKE-7 Assessment Billing - MIKE-7 Assessment Tool: MIKE-7 Assessment 41702 ([id number])
[2023-09-23 10:04] VITALS: BP 142/96; PULSE 118; O2SAT 99; BMI 43.6
== END 2023-09-23 10:32 | disposition home or self-care (01) ==
PROVIDERS: PCP Internal Medicine; Visit Provider Internal Medicine
DX: F33.42 Major depressive disorder, recurrent, in full remission (principal); D50.8 Other iron deficiency anemias; Z96.652 Presence of left artificial knee joint
CPT/HCPCS: 99214

== ENCOUNTER 2023-09-29 12:48 | Outpatient (AMB) | payer OTHER, SELFPAY ==
[2023-09-29 13:02] VITALS: BMI 44.2
--- NOTE | 2023-09-29 13:02 | A.OFFVIS_ITS ---
Intake Vital Signs 09/29/23 13:02 Height 5 ft 6 in Weight 274 lb BMI 44.2 Intake Visit Reasons: PO- LT TKA 09/13/23 Intake Note: Barbara a 53 year old female presents today for a post operative left TKA on 09/13/23 NE. Patient reports extreme pain with getting up from a sitting position. States pain in her thigh muscle and was told by PT that she strained her thigh muscle. Complains of pain at the lateral aspect of lower leg and bruising in ankle area as well as tenderness. Allergies codeine [Tylenol-Codeine] Allergy (Severe, Verified 09/29/23 13:20) Vomiting compazine Allergy (Severe, Verified 09/29/23 13:20) Seizure hydromorphone [From DILAUDID] Allergy (Severe, Verified 09/29/23 13:20) VOMITING,DIZZY meperidine [Demerol] Allergy (Severe, Verified 09/29/23 13:20) Rash prednisone Allergy (Severe, Verified 09/29/23 13:20) skin blistering amoxicillin [AMOXICILLIN] Allergy (Intermediate, Verified 09/29/23 13:20) HIVES, THRUSH naproxen Adverse Reaction (Intermediate, Verified 09/29/23 13:20) Family History of Kidney Disease HPI PO- LT TKA 09/13/23 HPI Details 53-year-old female who returns to the [facility] today for post-op left TKA, 09/13/[address] Alva. She states she has chronic pain in the left knee with getting up from a sitting position as well as thigh muscles. She also c/o pain at the lateral aspect of her lower leg along with bruising and tenderness in her ankle. She has no other concerns today. [facility] Medical History Arm numbness left Neck pain Concussion Numbness and tingling in left arm Diverticulosis Tubular adenoma Osteoarthritis of left knee Chronic GERD Morbid obesity IBS (irritable bowel syndrome) Depression Asthma Anxiety disorder Chronic back pain Neuropathy delivery delivered Cholecystitis Fibromyalgia Arthritis Surgical History H/O colonoscopy H/O knee surgery H/O oophorectomy Hx of section Family History Maternal Grandmother Ovarian ca Sister Slow to wake up after anesthesia Other Substance use disorder Social History Household Members: Spouse Housing: House Are you a primary acute care nurse to a significant other at home: No Do you presently have visiting nurse or other home services: No Alcohol intake: current Alcohol intake frequency: holidays/special occasions only Alcohol type: beer Comment: COUNTS CORRECT Patient Tobacco Use Status: Former Tobacco user Quit Date: 2019 Tobacco use type: Cigarette Years Smoked: 15 years e-Cigarette/Vaping Use: Never Used Substance Use Type: Marijuana Advance Directives Date on File: 04/13/23 service: No 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al status: unemployed 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 No erythema or drain rom 0-95 degrees. Calf supple, nontender. NVI. Assessment & Plan Assessment & Plan (1) Status post total knee replacement, left: Code(s): Z96.652 - Presence of left artificial knee joint Plan Sherry removed, steri strips applied. She will begin to transition to Outpatient PT to continue working on Gait training, ROM and quad strength. No driving for another 4 weeks. She will require ppx abx for dental procedures. She will f/u in 4 weeks, sooner if needed. Orders: Orders PT Evaluation and Treatment Today Z96.652 - Presence of left artificial knee joint Medications: New cane quad cane 1 ea 0RF Z96.652 - Presence of left artificial knee joint Patient Instructions: Scribed for Selene Farris PA-C, by [employer], on 09/29/2023 at 1:00 PM EST. I, Selene Farris PA-C, have personally reviewed and agree with the information entered by the scribe. Coding Level of Care Code Global (12623) Diagnoses Status post total knee replacement, left Z96.652
== END 2023-09-29 13:34 | disposition home or self-care (01) ==
PROVIDERS: PCP Internal Medicine; Visit Provider Physician Assistant
DX: Z96.652 Presence of left artificial knee joint (principal)
CPT/HCPCS: 99024

== ENCOUNTER → 2023-09-29 12:48 | Outpatient (BNVA) | payer OTHER, SELFPAY | PROVIDERS: PCP Internal Medicine; Visit Provider Physician Assistant | DX: Z47.1 Aftercare following joint replacement surgery (principal); Z96.652 Presence of left artificial knee joint | CPT/HCPCS: 99212 ==

== ENCOUNTER 2023-10-03 17:52 | Outpatient (REF) | payer OTHER, SELFPAY | END 2023-10-03 17:53 | disposition home or self-care (01) | LOC: HO.MRI 17:52 | PROVIDERS: PCP Internal Medicine; Visit Provider Registered Nurse | DX: Z13.89 Encounter for screening for other disorder (principal) ==

== ENCOUNTER 2023-10-12 14:07 | Outpatient (REF) | payer OTHER, SELFPAY ==
[2023-10-12 16:09] LABS: MANUAL DIFF FLAG NO
[2023-10-12 16:17] LABS: Basophils Absolute Auto 0.1 X10*3/uL (0.0-0.2); Basophils Percent Auto 0.9 % (0-2); Eosinophils Absolute Auto 0.5 X10*3/uL (0.0-0.4); Eosinophils Percent Auto 8.6 % (0-4); Hemoglobin 11.2 g/dl (12.0-16.0); Imm Gran Abs Auto 0.01 X10*3/uL (0.00-0.03); Imm Gran Pct Auto 0.2 % (0.0-0.4); Lymphocytes Absolute Auto 1.3 X10*3/uL (1.2-4.9); Lymphocytes Percent Auto 21.7 % (20-40); Mean Corpuscular Hemoglobin 30.7 pg (27.0-33.0); Mean Corpuscular Volume 95.9 fL (80.0-98.0); Mean Platelet Volume 9.8 fL (9.4-12.3); Monocytes Absolute Auto 0.4 X10*3/uL (0.1-1.2); Monocytes Percent Auto 6.5 % (2-11); Neutrophils Absolute Auto 3.6 x10*3/uL (2.0-8.3); Neutrophils Percent Auto 62.1 % (45-73); Platelet Count 335 X10*3/uL (160-400); Red Blood Count 3.65 X10*6/uL (4.20-5.50); White Blood Count 5.8 X10*3/uL (4.8-10.8)
[2023-10-12 16:41] LABS: Iron 90 mcg/dL (30-160); Percent Iron Saturation 37 % (15-50); Total Iron Binding Capacity 245 mcg/dL (228-428); Unsaturated Iron Binding 155 ug/dL
[2023-10-12 16:48] LABS: Ferritin 181 ng/mL (10-250)
== END 2023-10-12 14:08 | disposition home or self-care (01) ==
LOC: HO.HMGCLDS 14:07
PROVIDERS: PCP Internal Medicine; Visit Provider Internal Medicine
DX: D50.9 Iron deficiency anemia, unspecified (principal); Z96.652 Presence of left artificial knee joint
CPT/HCPCS: 36415; 82728; 83540; 85025

== ENCOUNTER 2023-10-27 12:46 | Outpatient (AMB) | payer OTHER, SELFPAY ==
[2023-10-27 12:51] VITALS: BMI 44.2
--- NOTE | 2023-10-27 12:51 | A.OFFVIS_ITS ---
Intake Vital Signs 10/27/23 12:51 Height 5 ft 6 in Weight 274 lb BMI 44.2 Intake Visit Reasons: PO-LT TKA 09/13/23 Intake Note: Barbara a 53 year old female presents today for a post operative left TKA on 09/13/23 NE. States she feels like she still has a lot of fluid in her knee. States her pain is better than last visit. Allergies codeine [Tylenol-Codeine] Allergy (Severe, Verified 10/27/23 12:53) Vomiting compazine Allergy (Severe, Verified 10/27/23 12:53) Seizure hydromorphone [From DILAUDID] Allergy (Severe, Verified 10/27/23 12:53) VOMITING,DIZZY meperidine [Demerol] Allergy (Severe, Verified 10/27/23 12:53) Rash prednisone Allergy (Severe, Verified 10/27/23 12:53) skin blistering amoxicillin [AMOXICILLIN] Allergy (Intermediate, Verified 10/27/23 12:53) HIVES, THRUSH naproxen Adverse Reaction (Intermediate, Verified 10/27/23 12:53) Family History of Kidney Disease HPI PO-LT TKA 09/13/23 HPI Details 53-year-old female who [facility] for post-op left TKA, 09/13/[address] Alva. She states she has improvement in her pain since the last visit. She also feels like she has a lot of fluid in her knee. She is doing well otherwise and has no other concerns today. [facility] Medical History Arm numbness left Neck pain Concussion Numbness and tingling in left arm Diverticulosis Tubular adenoma Osteoarthritis of left knee Chronic GERD Morbid obesity IBS (irritable bowel syndrome) Depression Asthma Anxiety disorder Chronic back pain Neuropathy delivery delivered Cholecystitis Fibromyalgia Arthritis Surgical History H/O colonoscopy H/O knee surgery H/O oophorectomy Hx of section Family History Maternal Grandmother Ovarian ca Sister Slow to wake up after anesthesia Other Substance use disorder Social History Household Members: Spouse Housing: House Are you a primary wound care coordinator to a significant other at home: No Do you presently have visiting nurse or other home services: No Alcohol intake: current Alcohol intake frequency: holidays/special occasions only Alcohol type: beer Comment: COUNTS CORRECT Patient Tobacco Use Status: Former Tobacco user Quit Date: 2019 Tobacco use type: Cigarette Years Smoked: 15 years e-Cigarette/Vaping Use: Never Used Substance Use Type: Marijuana Advance Directives Date on File: 04/13/23 service: No 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al status: unemployed 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 No erythema or drainage. She does have trace effusion. No significant tenderness to palpation. ROM is -5 to 90 degrees. She is able to activate a SLR with weakness. Calf supple, nontender. NVI. Assessment & Plan Assessment & Plan (1) Status post total knee replacement, left: Code(s): Z96.652 - Presence of left artificial knee joint Plan She will continue working with physical therapy to improve her quad function. Since she complains of her leg giving out with walking, I recommended she use a walker when she is out of her house or when walking long distance. I would like to see improvement in the next several weeks. Her quad appears to be intact but she has difficulty with complete SLR. I would like to see her back in [address] Alva, sooner if needed. Orders: Orders PT Evaluation and Treatment 10/27/23 Z96.652 - Presence of left artificial knee joint Patient Instructions: Scribed for Selene Farris PA-C, by Gage Berman medical information specialist, on 10/27/2023 at 12:45 PM EST. ISelene PA-C, have personally reviewed and agree with the information entered by the scribe. Coding Level of Care Code Global (36922) Diagnoses Status post total knee replacement, left Z96.652
== END 2023-10-27 13:04 | disposition home or self-care (01) ==
PROVIDERS: PCP Internal Medicine; Visit Provider Physician Assistant
DX: Z96.652 Presence of left artificial knee joint (principal)
CPT/HCPCS: 99024

== ENCOUNTER → 2023-10-27 12:46 | Outpatient (BNVA) | payer OTHER, SELFPAY | PROVIDERS: PCP Internal Medicine; Visit Provider Physician Assistant | DX: Z47.1 Aftercare following joint replacement surgery (principal); Z96.652 Presence of left artificial knee joint | CPT/HCPCS: 99212 ==

== ENCOUNTER 2023-10-27 14:00 | Outpatient (RCR) | payer OTHER, SELFPAY ==
--- NOTE | 2023-10-04 13:53 | MHC.PT.EP ---
[facility] [place] Office [place] Office [place] Office [address] Misty Regan [address] [phone] F: [phone] F: [phone] F: [phone] F: [phone] Physical Therapy Plan of Care Date of Evaluation: 10/04/23 Date of Surgery: 09/13/2023 Diagnosis: This is a 52 yo female presenting to skilled PT with a script for L TKA. Assessment: This is a 52 yo female presenting to skilled PT with a script for L TKA. Patient reporting that she had surgery at [facility] ortho on 09/13/2023. She recently also underwent the R knee on 04/13/23 and came here for rehab as well. After the L side TKR she went home after surgery and had home PT for about 5 visits. A few steri strips are left and gertrudis were removed last . She is ambulating with a rolling walker (did not use this prior) but has a quad based cane at home to start using. Pain comes and goes but increases with sit<>stands and walking. Her pain is located at the lateral joint line, quad muscle and lateral lower leg. Her assists now with driving, LB dressing and household tasks. Assessment reveals pain that ranges from up to a 10/10 at the worst. Patient demos decreased L knee ROM, strength of BLE, increased swelling and impaired gait and balance expected s/p L TKR. She is TTP at the lateral joint line as well as adjacent to incision and quad muscles. Based on functional limitations, impaired QOL and pain tolerance patient is a good candidate for skilled PT 2x/wk for 4wk. Frequency and Duration: The patient will be seen 2x/wk for 4wks Short Term Goals: I in HEP Improve knee AROM by at least 10 degs flexion Tolerate 10 SLR's without cues and without fatigue, using good quad contraction Outpatient Psychiatrist Goals: Normalize gait without AD Demo reciprocal gait on stairs without compensatory movements Normalize knee AROM and strength Improve pain to no more than 3/10 at the worst Treatment Plan: Modalities to reduce pain, spasms and effusion. Manual therapy to restore motion and function. Therapeutic exercise to improve strength and flexibility. Neuromuscular re-education for posture and balance. Therapeutic activities to return to functional activities of daily living. Electronically signed by: Chana King PT Please sign and return to therapist. Thank you for your referral.
--- NOTE | 2023-11-07 11:56 | MHC.PT.DC ---
[facility] [place] Office [place] Office [place] Office [address] Donita Regan [address] [phone] F: [phone] F: [phone] F: [phone] F: [phone] Physical Therapy Discharge Report Diagnosis: This is a 52 yo female presenting to skilled PT with a script for L TKA. Date of Surgery: 09/13/2023 Date of Evaluation: 10/04/23 Date of Discharge: 11/07/23 Treatments to Date: 7 Cancellations to Date: 0 No Shows to Date: 0 Discharge Status: Physician Discontinued Tx Discharge Summary: Patient with new change of status, fall and possible quad tendon tear. Patient will be undergoing surgery this Tuesday11/11/23. Patient's chart to be DC'd and we will re-evaluate when medically ready. Electronically signed by: Chana King PT Please sign and return to therapist. Thank you for your referral.
== END 2023-11-07 11:56 | disposition home or self-care (01) ==
LOC: HO.PTCHIC 14:00
PROVIDERS: PCP Internal Medicine; Visit Provider Physician Assistant
DX: Z96.652 Presence of left artificial knee joint (principal)
CPT/HCPCS: 97110; 97140; 97162

== ENCOUNTER 2023-11-07 08:27 | Outpatient (REF) | payer OTHER, SELFPAY ==
--- NOTE | ~2023-11-07 | XR_ITS ---
EXAMINATION: XR KNEE, RIGHT XR KNEE, LEFT XR BILATERAL KNEE AP STANDING CLINICAL INFORMATION: Pain in unspecified knee. COMPARISON: Radiographs left knee 09/13/2023. Radiographs right knee 04/13/2023. MR right knee 10/20/2022. AP standing bilateral knees 07/26/2022. Right knee 10/11/2022. TECHNIQUE: AP standing, lateral and sunrise views of bilateral knees. FINDINGS: LEFT KNEE: Status post total knee arthroplasty. Persistent bajdhvjt-ip-clxjy joint effusion. Hardware appears intact. RIGHT KNEE: Status post right knee total arthroplasty. Hardware appears intact. Fayrm-sw-ititgvvc joint effusion. XR/XR knee RT 2V IMPRESSION: 1. Status post bilateral total knee arthroplasties. Hardware appears intact. 2. Bilateral joint effusions.
--- NOTE | ~2023-11-07 | XR_ITS ---
EXAMINATION: XR KNEE, RIGHT XR KNEE, LEFT XR BILATERAL KNEE AP STANDING CLINICAL INFORMATION: Pain in unspecified knee. COMPARISON: Radiographs left knee 09/13/2023. Radiographs right knee 04/13/2023. MR right knee 10/20/2022. AP standing bilateral knees 07/26/2022. Right knee 10/11/2022. TECHNIQUE: AP standing, lateral and sunrise views of bilateral knees. FINDINGS: LEFT KNEE: Status post total knee arthroplasty. Persistent zcwaptvs-fw-xpiqb joint effusion. Hardware appears intact. RIGHT KNEE: Status post right knee total arthroplasty. Hardware appears intact. Xosll-ry-djqbykkw joint effusion. XR/XR knee standing BI IMPRESSION: 1. Status post bilateral total knee arthroplasties. Hardware appears intact. 2. Bilateral joint effusions.
--- NOTE | ~2023-11-07 | XR_ITS ---
EXAMINATION: XR KNEE, RIGHT XR KNEE, LEFT XR BILATERAL KNEE AP STANDING CLINICAL INFORMATION: Pain in unspecified knee. COMPARISON: Radiographs left knee 09/13/2023. Radiographs right knee 04/13/2023. MR right knee 10/20/2022. AP standing bilateral knees 07/26/2022. Right knee 10/11/2022. TECHNIQUE: AP standing, lateral and sunrise views of bilateral knees. FINDINGS: LEFT KNEE: Status post total knee arthroplasty. Persistent lqrkyquc-of-ftvbu joint effusion. Hardware appears intact. RIGHT KNEE: Status post right knee total arthroplasty. Hardware appears intact. Ryeur-rb-baehhrxm joint effusion. XR/XR knee LT 2V IMPRESSION: 1. Status post bilateral total knee arthroplasties. Hardware appears intact. 2. Bilateral joint effusions.
== END 2023-11-07 08:28 | disposition home or self-care (01) ==
LOC: HO.HOSX 08:27
PROVIDERS: Visit Provider Orthopaedic Surgery
DX: Z96.652 Presence of left artificial knee joint (principal)
CPT/HCPCS: 73560; 73565; 99212

== ENCOUNTER 2023-11-07 10:10 | Outpatient (AMB) | payer OTHER, SELFPAY ==
--- NOTE | 2023-11-07 08:27 | MHC.OFFVIS ---
Intake Intake Visit Reasons: PO-LT TKA 09/13/23-LT TKA quad fxn check Intake Note: Barbara is a 53 year old female who presents to the office today for a PO-LT TKA 09/13/23- LT TKA quad fxn check. Pt states she is still in pain and states that it feels very stiff and there is more pain in the back of her leg. Allergies codeine [Tylenol-Codeine] Allergy (Severe, Verified 11/07/23 10:21) Vomiting compazine Allergy (Severe, Verified 11/07/23 10:21) Seizure hydromorphone [From DILAUDID] Allergy (Severe, Verified 11/07/23 10:21) VOMITING,DIZZY meperidine [Demerol] Allergy (Severe, Verified 11/07/23 10:21) Rash prednisone Allergy (Severe, Verified 11/07/23 10:21) skin blistering amoxicillin [AMOXICILLIN] Allergy (Intermediate, Verified 11/07/23 10:21) HIVES, THRUSH naproxen Adverse Reaction (Intermediate, Verified 11/07/23 10:21) Family History of Kidney Disease HPI PO-LT TKA 09/13/23-LT TKA quad fxn check HPI Details 6 weeks s/p left TKA She presents today with complaints of increased pain in the posterior of her leg, as well as increased stiffness in her knee. She reports standing from a seated position and felt a painful pop in her thigh, and is worried she strained a muscle. This occurred ~6 weeks ago She continues to attend PT and walks with a cane. [facility] Medical History Arm numbness left Neck pain Concussion Numbness and tingling in left arm Diverticulosis Tubular adenoma Osteoarthritis of left knee Chronic GERD Morbid obesity IBS (irritable bowel syndrome) Depression Asthma Anxiety disorder Chronic back pain Neuropathy delivery delivered Cholecystitis Fibromyalgia Arthritis Surgical History H/O colonoscopy H/O knee surgery H/O oophorectomy Hx of section Family History Maternal Grandmother Ovarian ca Sister Slow to wake up after anesthesia Other Substance use disorder Social History Household Members: Spouse Housing: House Are you a primary sub acute care nurse to a significant other at home: No Do you presently have visiting nurse or other home services: No Alcohol intake: current Alcohol intake frequency: holidays/special occasions only Alcohol type: beer Comment: COUNTS CORRECT Patient Tobacco Use Status: Former Tobacco user Quit Date: 2019 Tobacco use type: Cigarette Years Smoked: 15 years e-Cigarette/Vaping Use: Never Used Substance Use Type: Marijuana Advance Directives Date on File: 04/13/23 service: No 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al status: unemployed 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 Resp Other: No audible wheezing Effort & Inspection: normal respiratory effort and able to speak in complete sentences Cardio Other: Radial pulse palpable with no rythmic abnormalities Jugular venous distension: no JVD Back/Spine/Pelvis Cervical Spine: normal cervical lordosis Skin General skin exam: turgor normal Rashes: no rashes Neuro General: patient oriented x3 Extrem Other: left knee iwth 5 deg extension lag. palpable divot in quad with skin dimpling ttp with palpation of defect. lateral quad intact Psych Appearance: grossly normal Mental Status: mental status grossly normal Speech and movement: Normal speech and movement present Affect: normal affect Attitude: cooperative Results Reviewed Results Reviewed: I personally reviewed relevant radiographs. Bilateral total knee arthroplasty in expected post operative position with no hardware complications or evidence of loosening Assessment & Plan Assessment & Plan (1) Status post total knee replacement, left: Code(s): Z96.652 - Presence of left artificial knee joint Plan: 6 weeks s/p left TKA with quad weakness, ext lag and painful palpable divot in anteromedial quad. Likely partial quad tear vs partial internal dehiscence. I explained this to her and recommend exploration, possible repair of the quadriceps. I discussed the risks benefits and alternatives including but not limited to the risk of pain, infection, stiffness, need for further surgery as well as possibility that it is not repairable. I also reviewed potential medical complications such as blood clots, pulmonary embolism and cardiac complications. She expressed understanding adn we will proceed forward accordingly Plan Prepared for Red Alva MD by Bill Brooks, director medical safety, on 11/07/23 at 8:58 AM, EST. Orders: Orders XR knee LT 2V Today M25.569 - Pain in unspecified knee XR knee standing BI Today M25.569 - Pain in unspecified knee XR knee RT 2V Today M25.569 - Pain in unspecified knee Coding Level of Care Code Global (80259) Diagnoses Status post total knee replacement, left Z96.652
== END 2023-11-07 10:49 | disposition home or self-care (01) ==
PROVIDERS: PCP Internal Medicine; Visit Provider Orthopaedic Surgery
DX: Z96.652 Presence of left artificial knee joint (principal)
CPT/HCPCS: 99024

== ENCOUNTER 2023-11-11 10:30 | Day surgery (SDC) | payer OTHER, SELFPAY ==
--- NOTE | 2023-11-09 15:14 | P.CONAN_ITS ---
HPI - Anesthesia Eval Consult details Narrative: 53yo F for Knee Exploration,possible Quad Repair s/p L TKA 09/2023 with spinal and block PMFSH Active Problems Active Problems: All Active Problems (Updated 09/23/23 @ 10:29 by Juliet Torres MD) Iron deficiency anemia (Acute) Status post total knee replacement, left (Acute) Anemia (Acute) History of total right knee replacement (Acute) Pre-op evaluation (Acute) Morbid obesity due to excess calories (Acute) Sprain of medial collateral ligament of right knee (Acute) Internal derangement of right knee (Acute) Hematoma (Acute) Osteoarthritis of right knee (Acute) Chest wall contusion (Acute) Sprain of left hand (Acute) Sprain of right knee (Acute) Rash (Acute) Overactive bladder (Acute) Radiculitis of left cervical region (Acute) Screening for alcohol problem (Acute) Fracture of ankle, right, closed (Acute) Serum calcium elevated (Acute) Right rib fracture (Acute) Pain management (Acute) Closed rib fracture (Acute) Hospital discharge follow-up (Acute) Ecchymosis (Acute) Right buttock pain (Acute) Fall (Acute) Hospital discharge follow-up (Acute) Numbness and tingling (Acute) High ankle sprain of left lower extremity (Acute) Major depression, recurrent (Acute) Neck Pain (Acute) Encounter for general adult medical examination with abnormal findings (Acute) Well woman exam (Acute) Fibromyalgia (Acute) Muscle spasm (Acute) Establishing care with new doctor, encounter for (Acute) Muscle spasms of both lower extremities (Acute) Lumbar pain (Acute) Environmental allergies (Acute) Left lumbar radiculitis (Acute) Degenerative disc disease (Acute) Sciatica (Acute) Osteoarthritis of left knee (Acute) Paraspinal muscle spasm (Acute) Pain of left calf (Acute) Bulging of cervical intervertebral disc (Acute) Diverticulosis (Acute) Tubular adenoma (Acute) IBS (irritable bowel syndrome) (Acute) Chronic GERD (Acute) Osteoarthritis of left knee (Acute) Neuropathy (Acute) Fibromyalgia (Acute) Cholecystitis (Acute) delivery delivered (Acute) Past Medical History Medical History Arm numbness left Neck pain Concussion Numbness and tingling in left arm Diverticulosis Tubular adenoma Osteoarthritis of left knee Chronic GERD Morbid obesity IBS (irritable bowel syndrome) Depression Asthma Anxiety disorder Chronic back pain Neuropathy delivery delivered Cholecystitis Fibromyalgia Arthritis Family History Family History Maternal Grandmother Ovarian ca Sister Slow to wake up after anesthesia Other Substance use disorder Family history of problems with anesthesia: Yes (Sister slow to wake) Surgical History Surgical History H/O colonoscopy H/O knee surgery H/O oophorectomy Hx of section History of Problems with Anesthesia: No Social History Social History Household Members: Spouse Housing: House Are you a primary animal care service worker to a significant other at home: No Do you presently have visiting nurse or other home services: No Alcohol intake: current Alcohol intake frequency: holidays/special occasions only Alcohol type: beer Comment: COUNTS CORRECT Patient Tobacco Use Status: Former Tobacco user Quit Date: 4 years Tobacco use type: Cigarette Years Smoked: 15 years e-Cigarette/Vaping Use: Never Used Substance Use Type: Marijuana Advance Directives Date on File: 04/13/23 service: No 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al status: unemployed 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 Cognitive needs: No Hearing needs: No Vision needs: No Meds Allergies Allergy/AdvReac Type Severity Reaction Status Date / Time codeine [Tylenol-Codeine] Allergy Severe Vomiting Verified 11/07/23 10:21 compazine Allergy Severe Seizure Verified 11/07/23 10:21 hydromorphone [From DILAUDID] Allergy Severe VOMITING,DI Verified 11/07/23 10:21 ZZY meperidine [Demerol] Allergy Severe Rash Verified 11/07/23 10:21 prednisone Allergy Severe skin Verified 11/07/23 10:21 blistering amoxicillin [AMOXICILLIN] Allergy Intermediate HIVES, Verified 11/07/23 10:21 THRUSH naproxen AdvReac Intermediate Family Verified 11/07/23 10:21 History of Kidney Disease Home Medications Medication Instructions Recorded Confirmed Last Taken Type ascorbic acid (vitamin C) 500 mg 500 mg PO DAILY 04/07/23 09/23/23 09/13/23 History tablet (Vitamin C) duloxetine 30 mg capsule,delayed 60 mg PO DAILY 04/07/23 09/23/23 09/13/23 History release (Cymbalta) amitriptyline 25 mg tablet 25 mg PO BEDTIME 09/01/23 09/23/23 09/12/23 History cyclobenzaprine 10 mg tablet 10 mg PO BEDTIME 09/01/23 09/23/23 09/12/23 History doxycycline hyclate 100 mg capsule 100 mg PO BID 09/13/23 09/23/23 Unknown History Exam Pertinent Lab Results Pertinent Lab Results: Laboratory Tests 08/26/23 13:38 WBC 5.7 Hgb 12.5 Hct 37.3 Plt Count 375 D Sodium 143 Potassium 3.7 Chloride 107 Carbon Dioxide 24 BUN 15 Creatinine 1.02 Narrative Narrative: EKG 08/2023 NSR @ 99 Nonspecific T wave Assessment and Plan Assessment Anesthesia Assessment: Chart Reviewed Final Anesthetic Review Family History of Problems with Anesthesia: Yes (Sister slow to wake) History of Problems with Anesthesia: No
[2023-11-11] VITALS (8 sets, daily range): BP systolic 130–178; BP diastolic 72–95; PULSE 91–111; RESP 16–18; TEMP 36.1–36.6; O2SAT 97–99; BMI 43.0
[2023-11-11] MEDS: Lactated Ringers 1,000 ML 100 ML IVCONT (11:06)
[2023-11-11] MEDS: vancomycin/NS 2,000 MG/500 ML PLAST..BAG 250 MG IV (11:23)
--- NOTE | 2023-11-11 12:02 | MHC.SHP ---
Pre-Procedural Eval Section A - 24 Hr Update-Section A only Date of Service: 11/11/23 The patient is an INPATIENT: No Changes since office visit: No Cold of Flu in the past 2 weeks, No New Medical Problems, No Changes in Medication and No Patient answered all questions The patient has been examined within 24 hours of the surgical procedure. The History & Physical has been completed within 30 days and I have reviewed it.: Yes Section B - Complete if H&P > 30 days Chief Complaint: Presence of left artificial knee joint Allergies: Allergies Allergy/AdvReac Type Severity Reaction Status Date / Time codeine [Tylenol-Codeine] Allergy Severe Vomiting Verified 11/07/23 10:21 compazine Allergy Severe Seizure Verified 11/07/23 10:21 hydromorphone [From DILAUDID] Allergy Severe VOMITING,DI Verified 11/07/23 10:21 ZZY meperidine [Demerol] Allergy Severe Rash Verified 11/07/23 10:21 prednisone Allergy Severe skin Verified 11/07/23 10:21 blistering amoxicillin [AMOXICILLIN] Allergy Intermediate HIVES, Verified 11/07/23 10:21 THRUSH naproxen AdvReac Intermediate Family Verified 11/07/23 10:21 History of Kidney Disease Plan I have reviewed the history and physical and performed a pertinent physical examination on my patient. No changes have occurred unless specified. Time Spent With Patient Time: Total time managing care of this patient today ____ minutes.
--- NOTE | 2023-11-11 13:15 | PM.OP ---
Brief Operative Note Date of Service: 11/11/23 Pre-op diagnosis: quad tear, left Post-op diagnosis: other (Retinacular tear, left knee) Procedure: Repair left medial retinaculum Implants: none Surgeon: Red Alva MD Anesthesia: GETA and regional Was an Medical Billing Clerk used for this Procedure?: No Estimated blood loss (mL): 150 Pathology: none sent Condition: stable Disposition: PACU
[2023-11-11] MEDS: oxyCODONE HCl Immed Release 5 MG TABLET PO (13:46)
--- NOTE | 2023-12-11 19:12 | P.OP_ITS ---
Operative Note Operative Note Date of Service: 11/11/23 Narrative: Date of Service: 11/11/23 Pre-op diagnosis: quad tear, left Post-op diagnosis: other (Retinacular tear, left knee) Procedure: Repair left medial retinaculum Implants: none Surgeon: Red Alva MD Anesthesia: GETA and regional Was an Certified Novell Engineer used for this Procedure?: No Estimated blood loss (mL): 150 Pathology: none sent Condition: stable Disposition: PACU Procedure in detail: The patient was brought to the operating room and prepped and draped in standard sterile fashion. A time-out was called to identify proper site proper procedure proper surgeon and IV antibiotics were administered. I began by making a midline incision through the prior incision. The medial retinaculum had been torn with what was essentially an internal dehiscence. I removed all the retinacular suture and irrigated the knee copiously. There was no unusual fluid or evidence of infection. I then used a running Quill to close the medial retinaculum up into the quadriceps tendon. I then took the knee through a full ROM and the repair was stable. The subQ was then closed with a 3 0 Vicryl and gertrudis on the skin. Patient was then placed in sterile dressing and brought to recovery room in stable condition there were no known complications.
== END 2023-11-11 15:28 | disposition home or self-care (01) ==
PROVIDERS: PCP Internal Medicine; Visit Provider Orthopaedic Surgery
PROC: (CPT 27425; principal; 2023-11-11 12:00)
DX: S83.412A Sprain of medial collateral ligament of left knee, initial encounter (principal); M25.662 Stiffness of left knee, not elsewhere classified; M17.12 Unilateral primary osteoarthritis, left knee; Z96.652 Presence of left artificial knee joint; X50.1XXA Overexertion from prolonged static or awkward postures, initial encounter; Y93.89 Activity, other specified; Y92.9 Unspecified place or not applicable; Y99.9 Unspecified external cause status; Z99.89 Dependence on other enabling machines and devices; Z79.899 Other long term (current) drug therapy; Z88.1 Allergy status to other antibiotic agents; Z88.5 Allergy status to narcotic agent; Z88.8 Allergy status to other drugs, medicaments and biological substances; Z87.891 Personal history of nicotine dependence
CPT/HCPCS: 27425; J0131; J0665; J1100; J1596; J1885; J2250; J2405; J2704; J2795; J3010; J3370

== ENCOUNTER → 2023-11-11 10:30 | Outpatient (BNV) | payer OTHER, SELFPAY | PROVIDERS: PCP Internal Medicine; Visit Provider Orthopaedic Surgery | DX: S83.32XA Tear of articular cartilage of left knee, current, initial encounter (principal) | CPT/HCPCS: 27599 ==

== ENCOUNTER 2023-11-17 14:51 | Outpatient (AMB) | payer OTHER, SELFPAY ==
--- NOTE | 2023-11-17 15:06 | MHC.OFFVIS ---
Intake Intake Visit Reasons: PO LT knee exploration 11/11/23 NE Intake Note: Barbara is a 53 year old female who presents today for a post op appointment s/p LT knee exploration 11/11/23 NE. Patient reports her knee feels stronger, however she gets these flare ups of sharp pain at night. Allergies codeine [Tylenol-Codeine] Allergy (Severe, Verified 11/17/23 15:11) Vomiting compazine Allergy (Severe, Verified 11/17/23 15:11) Seizure hydromorphone [From DILAUDID] Allergy (Severe, Verified 11/17/23 15:11) VOMITING,DIZZY meperidine [Demerol] Allergy (Severe, Verified 11/17/23 15:11) Rash prednisone Allergy (Severe, Verified 11/17/23 15:11) skin blistering amoxicillin [AMOXICILLIN] Allergy (Intermediate, Verified 11/17/23 15:11) HIVES, THRUSH naproxen Adverse Reaction (Intermediate, Verified 11/17/23 15:11) Family History of Kidney Disease HPI PO LT knee exploration 11/11/23 NE HPI Details 53-year-old female who presents in the office today 6 days status post left knee medial retinaculum repair, which was performed on 11/11/[address] Alva. Patient reports her knee feels stronger, however, she reports a sharp pain at night. [facility] Medical History Arm numbness left Neck pain Concussion Numbness and tingling in left arm Diverticulosis Tubular adenoma Osteoarthritis of left knee Chronic GERD Morbid obesity IBS (irritable bowel syndrome) Depression Asthma Anxiety disorder Chronic back pain Neuropathy delivery delivered Cholecystitis Fibromyalgia Arthritis Surgical History H/O colonoscopy H/O knee surgery H/O oophorectomy Hx of section Family History Maternal Grandmother Ovarian ca Sister Slow to wake up after anesthesia Other Substance use disorder Social History Household Members: Spouse Housing: House Are you a primary hospice spiritual care coordinator to a significant other at home: No Do you presently have visiting nurse or other home services: No Alcohol intake: current Alcohol intake frequency: holidays/special occasions only Alcohol type: beer Comment: COUNTS CORRECT Patient Tobacco Use Status: Former Tobacco user Quit Date: 4 years Tobacco use type: Cigarette Years Smoked: 15 years e-Cigarette/Vaping Use: Never Used Substance Use Type: Marijuana Advance Directives Date on File: 04/13/23 service: No 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al status: unemployed 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 Cognitive needs: No Hearing needs: No Vision needs: No Female Reproductive History Menstrual Age of Menarche: 12 Review of Systems Const All systems reviewed & are unremarkable except as noted in HPI and below Physical Exam Const General: cooperative, healthy appearing and no acute distress Resp Effort & Inspection: normal respiratory effort and able to speak in complete sentences Cardio Rate: regular rate Peripheral pulses: Peripheral pulses 2+ throughout GI Palpation (GI): Soft to palpation Skin Lesions: no lesions Rashes: no rashes Extrem Other: Left knee: Incision site is clean, dry, and intact. Max intact. No surrounding erythema or drainage. No signs of infection. NVI. Assessment & Plan Assessment & Plan (1) S/P left knee arthroscopy: Comment: Left knee medial retinaculum repair, 11/11/2023 NE Code(s): Z98.890 - Other specified postprocedural states (2) Status post total knee replacement, left: Onset Date: ~09/13/23 Comment: Dr. Red Alva Code(s): Z96.652 - Presence of left artificial knee joint Plan Ms. Harris is a 53-year-old female who presents in the office today 6 days status post left knee medial retinaculum repair, which was performed on 11/11/[address] Alva. Patient reports her knee feels stronger, however, she reports a sharp pain at night. Case was discussed with Dr. Alva, who was available but did not see the patient. Max will remain in place for an additional week. A new Aquacel dressing was applied while in the office today. Physical therapy instructions to remain in the brace at all time. She may perform ROM from 0-45 degrees now with an increase of 15 degrees each week. Our office will reach out to physical therapy to have her begin outpatient physical therapy as soon as possible. Follow up will be next week for anticipated staple removal with Selene Farris PA-C, or sooner if needed. Patient Instructions: Scribed by Linh Regan nuclear medical technologist, for Claudine Aldrich PA-C on 11/17/2023 at 2:53 pm, EST. Coding Level of Care Code Global (05827) Diagnoses S/P left knee arthroscopy Z98.890 Status post total knee replacement, left Z96.652
== END 2023-11-17 15:42 | disposition home or self-care (01) ==
PROVIDERS: PCP Internal Medicine; Visit Provider Physician Assistant
DX: Z98.890 Other specified postprocedural states (principal); Z96.652 Presence of left artificial knee joint
CPT/HCPCS: 99024

== ENCOUNTER → 2023-11-17 14:51 | Outpatient (BNVA) | payer OTHER, SELFPAY | PROVIDERS: PCP Internal Medicine; Visit Provider Physician Assistant | DX: Z47.89 Encounter for other orthopedic aftercare (principal); Z96.652 Presence of left artificial knee joint; Z98.890 Other specified postprocedural states | CPT/HCPCS: 99212 ==

== ENCOUNTER 2023-11-24 13:42 | Outpatient (AMB) | payer OTHER, SELFPAY ==
--- NOTE | 2023-11-24 13:48 | A.OFFVIS_ITS ---
Intake Intake Visit Reasons: PO LT knee exploration 11/11/23 NE-staple removals Intake Note: Barbara a 53 year old female who presents today for a post operative left knee exploration on 11/11/23 NE. Patient reports that she continues to have pain with a pain level 8 out of 10. States her pain is usually worse at night. Allergies codeine [Tylenol-Codeine] Allergy (Severe, Verified 11/24/23 13:52) Vomiting compazine Allergy (Severe, Verified 11/24/23 13:52) Seizure hydromorphone [From DILAUDID] Allergy (Severe, Verified 11/24/23 13:52) VOMITING,DIZZY meperidine [Demerol] Allergy (Severe, Verified 11/24/23 13:52) Rash prednisone Allergy (Severe, Verified 11/24/23 13:52) skin blistering amoxicillin [AMOXICILLIN] Allergy (Intermediate, Verified 11/24/23 13:52) HIVES, THRUSH naproxen Adverse Reaction (Intermediate, Verified 11/24/23 13:52) Family History of Kidney Disease HPI PO LT knee exploration 11/11/23 NE-staple removals HPI Details 53-year-old female who returns to the [facility] today for post-op left knee exploration, 11/11/[address] Alva. She continues to have pain in her knee and rates the pain as 8 on the scale of 0-10. Her pain is aggravated at night. She has been working with physical therapy as instructed. She is doing well overall and has no other concerns today. [facility] Medical History Arm numbness left Neck pain Concussion Numbness and tingling in left arm Diverticulosis Tubular adenoma Osteoarthritis of left knee Chronic GERD Morbid obesity IBS (irritable bowel syndrome) Depression Asthma Anxiety disorder Chronic back pain Neuropathy delivery delivered Cholecystitis Fibromyalgia Arthritis Surgical History H/O colonoscopy H/O knee surgery H/O oophorectomy Hx of section Family History Maternal Grandmother Ovarian ca Sister Slow to wake up after anesthesia Other Substance use disorder Social History Household Members: Spouse Housing: House Are you a primary daycare assistant to a significant other at home: No Do you presently have visiting nurse or other home services: No Alcohol intake: current Alcohol intake frequency: holidays/special occasions only Alcohol type: beer Comment: COUNTS CORRECT Patient Tobacco Use Status: Former Tobacco user Quit Date: 4 years Tobacco use type: Cigarette Years Smoked: 15 years e-Cigarette/Vaping Use: Never Used Substance Use Type: Marijuana Advance Directives Date on File: 04/13/23 service: No 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al status: unemployed 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 No erythema, mild swelling. She is able to activate her quad and perform a SLR. Calf supple, nontender. NVI. Assessment & Plan Assessment & Plan (1) Status post total knee replacement, left: Onset Date: ~09/13/23 Comment: Dr. Red Alva Code(s): Z96.652 - Presence of left artificial knee joint (2) Traumatic medial retinacular tear of left knee: Code(s): S86.812A - Strain of other muscle(s) and tendon(s) at lower leg level, left leg, initial encounter Qualifiers: Encounter type: subsequent encounter Qualified Code(s): S86.812D - Strain of other muscle(s) and tendon(s) at lower leg level, left leg, subsequent encounter Plan Sherry removed today, steri strips applied. She will continue working on physical therapy to maintain her quad strength and also her ROM. She will continue using the brace which she can unlock every week. She will see me back in 2 weeks for a follow-up, sooner if needed. Medications: Changed From oxycodone Partial Fill upon patient request. 5 mg PO Q6H 7 days PRN 30 tabs 0RF pain To oxycodone Partial Fill upon patient request. 5 mg PO Q12H PRN 14 tabs 0RF pain 7 days Patient Instructions: Scribed for Selene Farris PA-C, by Gage Berman medical scientific liaison, on 11/24/2023 at 1:45 PM Selene MCCLURE PA-C, have personally reviewed and agree with the information entered by the scribe. Coding Level of Care Code Global (97620) Diagnoses Status post total knee replacement, left Z96.652 Traumatic medial retinacular tear of left knee, subsequent encounter S86.812D Encounter type: subsequent encounter
== END 2023-11-24 14:38 | disposition home or self-care (01) ==
PROVIDERS: PCP Internal Medicine; Visit Provider Physician Assistant
DX: Z96.652 Presence of left artificial knee joint (principal); S86.812D Strain of other muscle(s) and tendon(s) at lower leg level, left leg, subsequent encounter
CPT/HCPCS: 99024

== ENCOUNTER → 2023-11-24 13:42 | Outpatient (BNVA) | payer OTHER, SELFPAY | PROVIDERS: PCP Internal Medicine; Visit Provider Physician Assistant | DX: Z47.1 Aftercare following joint replacement surgery (principal); S86.812D Strain of other muscle(s) and tendon(s) at lower leg level, left leg, subsequent encounter; Z96.652 Presence of left artificial knee joint | CPT/HCPCS: 99212 ==

== ENCOUNTER 2023-12-08 13:00 | Outpatient (AMB) | payer OTHER, SELFPAY ==
[2023-12-08 13:04] VITALS: BMI 42.9
--- NOTE | 2023-12-08 13:04 | A.OFFVIS_ITS ---
Intake Vital Signs 12/08/23 13:04 Height 5 ft 7 in Weight 274 lb BMI 42.9 Intake Visit Reasons: PO LT knee exploration 11/11/23 NE Intake Note: Barbara a 53 year old female who presents today for a post operative left knee exploration on 11/11/23 NE. Patient reports she is continuing with P.T with improvement. Accompanied by: Self / Same As Patient Allergies codeine [Tylenol-Codeine] Allergy (Severe, Verified 11/24/23 13:52) Vomiting compazine Allergy (Severe, Verified 11/24/23 13:52) Seizure hydromorphone [From DILAUDID] Allergy (Severe, Verified 11/24/23 13:52) VOMITING,DIZZY meperidine [Demerol] Allergy (Severe, Verified 11/24/23 13:52) Rash prednisone Allergy (Severe, Verified 11/24/23 13:52) skin blistering amoxicillin [AMOXICILLIN] Allergy (Intermediate, Verified 11/24/23 13:52) HIVES, THRUSH naproxen Adverse Reaction (Intermediate, Verified 11/24/23 13:52) Family History of Kidney Disease HPI PO LT knee exploration 11/11/23 NE HPI Details 53-year-old female who returns to the [facility] today for post-op left knee exploration, 11/11/[address] Alva. She states she has improvement in her pain and is doing well overall. She is working on physical therapy with benefits. She has no concerns today. [facility] Medical History Arm numbness left Neck pain Concussion Numbness and tingling in left arm Diverticulosis Tubular adenoma Osteoarthritis of left knee Chronic GERD Morbid obesity IBS (irritable bowel syndrome) Depression Asthma Anxiety disorder Chronic back pain Neuropathy delivery delivered Cholecystitis Fibromyalgia Arthritis Surgical History H/O colonoscopy H/O knee surgery H/O oophorectomy Hx of section Family History Maternal Grandmother Ovarian ca Sister Slow to wake up after anesthesia Other Substance use disorder Social History Household Members: Spouse Housing: House Are you a primary progressive care unit registered nurse to a significant other at home: No Do you presently have visiting nurse or other home services: No Alcohol intake: current Alcohol intake frequency: holidays/special occasions only Alcohol type: beer Comment: COUNTS CORRECT Patient Tobacco Use Status: Former Tobacco user Quit Date: 4 years Tobacco use type: Cigarette Years Smoked: 15 years e-Cigarette/Vaping Use: Never Used Substance Use Type: Marijuana Advance Directives Date on File: 04/13/23 service: No 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al status: unemployed 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 No erythema, mild swelling. She is able to activate her quad and perform a SLR. Calf supple, nontender. NVI. Assessment & Plan Assessment & Plan (1) Status post total knee replacement, left: Onset Date: ~09/13/23 Comment: Dr. Red Alva Code(s): Z96.652 - Presence of left artificial knee joint (2) Traumatic medial retinacular tear of left knee: Code(s): S86.812A - Strain of other muscle(s) and tendon(s) at lower leg level, left leg, initial encounter Qualifiers: Encounter type: subsequent encounter Qualified Code(s): S86.812D - Strain of other muscle(s) and tendon(s) at lower leg level, left leg, subsequent encounter Plan Dr. Alva was available to see the patient with me today. She will continue working on physical therapy to improve her ROM and continue quad strength. She will continue using her brace with any type of activities where she is out of house or going up or down stairs. She will see me back in 4-6 weeks, sooner if needed. Patient Instructions: Scribed for Selene Farris PA-C, by Gage Berman medical specialist, on 12/08/2023 at 1:15 PM EST. Selene Gutiérrez PA-C, have personally reviewed and agree with the information entered by the scribe. Coding Level of Care Code Global (01942) Diagnoses Status post total knee replacement, left Z96.652 Traumatic medial retinacular tear of left knee, subsequent encounter S86.293B Encounter type: subsequent encounter
== END 2023-12-08 13:44 | disposition home or self-care (01) ==
PROVIDERS: PCP Internal Medicine; Visit Provider Physician Assistant
DX: Z96.652 Presence of left artificial knee joint (principal); S86.812D Strain of other muscle(s) and tendon(s) at lower leg level, left leg, subsequent encounter
CPT/HCPCS: 99024

== ENCOUNTER → 2023-12-08 13:00 | Outpatient (BNVA) | payer OTHER, SELFPAY | PROVIDERS: PCP Internal Medicine; Visit Provider Physician Assistant | DX: S86.812D Strain of other muscle(s) and tendon(s) at lower leg level, left leg, subsequent encounter (principal); Z96.652 Presence of left artificial knee joint | CPT/HCPCS: 99212 ==

== ENCOUNTER 2023-12-23 12:03 | Outpatient (AMB) | payer OTHER, SELFPAY ==
[2023-12-23 12:05] VITALS: BP 130/86; PULSE 110; O2SAT 99; BMI 43.5
--- NOTE | 2023-12-23 12:07 | A.OFFPC_ITS ---
Vital Signs 3 12/23/23 12:05 Height 5 ft 7 in Weight 278 lb BMI 43.5 BP 130/86 Blood Pressure Location Lt brachial Position Sitting Pulse 110 H Pulse Source Pulse Oximeter Pulse Oximetry (%) 99 Oxygen Delivery Method Room Air Intake Visit Reasons: 3 month follow up Medical Clinic Manager Required: No Allergies codeine [Tylenol-Codeine] Allergy (Severe, Verified 12/23/23 12:06) Vomiting compazine Allergy (Severe, Verified 12/23/23 12:06) Seizure hydromorphone [From DILAUDID] Allergy (Severe, Verified 12/23/23 12:06) VOMITING,DIZZY meperidine [Demerol] Allergy (Severe, Verified 12/23/23 12:06) Rash prednisone Allergy (Severe, Verified 12/23/23 12:06) skin blistering amoxicillin [AMOXICILLIN] Allergy (Intermediate, Verified 12/23/23 12:06) HIVES, THRUSH naproxen Adverse Reaction (Intermediate, Verified 12/23/23 12:06) Family History of Kidney Disease Medication List - Last Reconciled 12/23/23 by Juliet Torres MD albuterol sulfate 90 mcg/actuation (ProAir HFA) 2 puffs inhalation Q6H PRN 90 days amitriptyline 25 mg PO BEDTIME cane quad cane celecoxib 200 mg PO BID cyclobenzaprine 10 mg PO BEDTIME docusate sodium 100 mg PO BID 30 days duloxetine (Cymbalta) 60 mg PO DAILY ferrous sulfate 324 mg PO BID 90 days fluticasone propionate 50 mcg/actuation 1 spray intranasal BID loratadine 10 mg PO DAILY 90 days omeprazole 40 mg PO DAILY@0630 oxycodone 5 mg PO Q12H PRN 7 days tolterodine (Detrol) 2 mg PO BID 90 days Tobacco use date assessed: 09/23/23 Dental Screening Dental Screen Date: 09/23/23 HPI 3 month follow up 2 HPI0 Details Patient is a 53-year-old female who suffers from fibromyalgia, migraine, vertigo, lumbar radiculopathy, cervical disc disease, all treated by Neurology Dr. Campos Also suffers from mild depression and anxiety Mild anemia most likely secondary to hemorrhoids, also have allergies and chronic GERD Along with urine urgency. She uses cane for ambulation secondary to chronic vertigo also treated by Neurology Patient says that due to weakness in her left upper extremity she is not able to hold any job, and because of vertigo she can not even drive. Currently she is going through paperwork for disability through city attorney And would like this note faxed over, which we will Patient says that she has signed the concern forms already Disability forms that she brought in we are not able to fill as that need to be filled through providers who specialized in disability evaluation. Patient was notified. BMI is elevated at 43.5 patient is morbidly obese, trying to lose weight [facility] Medical History Arm numbness left Neck pain Concussion Numbness and tingling in left arm Diverticulosis Tubular adenoma Osteoarthritis of left knee Chronic GERD Morbid obesity IBS (irritable bowel syndrome) Depression Asthma Anxiety disorder Chronic back pain Neuropathy delivery delivered Cholecystitis Fibromyalgia Arthritis Surgical History H/O colonoscopy H/O knee surgery H/O oophorectomy Hx of section Family History Maternal Grandmother Ovarian ca Sister Slow to wake up after anesthesia Other Substance use disorder Social History Household Members: Spouse Housing: House Are you a primary child care attendant school to a significant other at home: No Do you presently have visiting nurse or other home services: No Alcohol intake: current Alcohol intake frequency: holidays/special occasions only Alcohol type: beer Comment: COUNTS CORRECT Patient Tobacco Use Status: Former Tobacco user Quit Date: 4 years Tobacco use type: Cigarette Years Smoked: 15 years e-Cigarette/Vaping Use: Never Used Substance Use Type: Marijuana Advance Directives Date on File: 04/13/23 service: No 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al status: unemployed 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 Joshua Munoz, Claudia Taylor, Kojo Frye and colleagues, with an educational jessica from [employer]. Review of Systems Const Denies chills and Denies fever(s) ENT Denies epistaxis and Denies nasal discharge Card Denies chest pain Resp Denies chest congestion, Denies cough and Denies hemoptysis GI Denies diarrhea and Denies nausea Skin/Breast Denies rash Neuro Reports no additional complaints Psych Reports no additional complaints Endo Reports no additional complaints Physical exam (Primary Care) Vital Signs: Last Vital Signs Pulse 110 H 12/23/23 12:05 BP 130/86 12/23/23 12:05 Pulse Ox 99 12/23/23 12:05 Oxygen Delivery Method Room Air 12/23/23 12:05 BMI result Body Mass Index 43.5 Tobacco/Smoking Status: Tobacco use Status Tobacco use date assessed 09/23/23 12/23/23 12:09 Patient Tobacco Use Status Former Tobacco user 12/23/23 12:09 Tobacco use type Cigarette 12/23/23 12:09 e-Cigarette/Vaping Use Never Used 12/23/23 12:09 Thrive Assessment: Date of Thrive Assessment Date Thrive assessed 09/23/23 12/23/23 12:09 Const General: cooperative, comfortable and no acute distress Orientation/consciousness: patient oriented x3 HENMT Head: Yes normocephalic Eyes General: appearance normal, both eyes and all related structures Neck Neck: Yes supple Resp Effort & Inspection: normal respiratory effort, no cough and no stridor Cardio Rhythm: regular rhythm Heart sounds: S1 normal heart sound present and S2 normal heart sound present Skin General skin exam: turgor normal Neuro Other: Failed tandem walk due to vertigo, Romberg intact, uses cane as ambulatory aid Hand java j2ee architect equal both side of body General: patient oriented x3, tone normal and moves all extremities Extrem Shoulder/upper arm images: 2 1. Pain with palpation, limited range of motion secondary to pain, neck is also limited range of motion Right lower extremity: no edema Left lower extremity: no edema Assessment and Plan Assessment & Plan (1) Anemia: Code(s): D64.9 - Anemia, unspecified Qualifiers: Anemia type: iron deficiency Iron deficiency anemia type: other iron deficiency Qualified Code(s): D50.8 - Other iron deficiency anemias (2) Fibromyalgia: Code(s): M79.7 - Fibromyalgia (3) Environmental allergies: Code(s): Z91.09 - Other allergy status, other than to drugs and biological substances (4) Morbid obesity due to excess calories: Code(s): E66.01 - Morbid (severe) obesity due to excess calories (5) Chronic GERD: Code(s): K21.9 - Gastro-esophageal reflux disease without esophagitis (6) Neuropathy: Code(s): G62.9 - Polyneuropathy, unspecified (7) Overactive bladder: Code(s): N32.81 - Overactive bladder (8) Depression with anxiety: Code(s): F41.8 - Other specified anxiety disorders (9) Migraine headache: Code(s): G43.909 - Migraine, unspecified, not intractable, without status migrainosus Qualifiers: Intractability: intractable Migraine type: unspecified Status migrainosus presence: without status migrainosus Qualified Code(s): G43.919 - Migraine, unspecified, intractable, without status migrainosus (10) Vertigo: Code(s): R42 - Dizziness and giddiness (11) Instability of left knee joint: Code(s): M25.362 - Other instability, left knee (12) Use of cane as ambulatory aid: Code(s): Z99.89 - Dependence on other enabling machines and devices Plan Patient is a 53-year-old female who suffers from fibromyalgia, migraine, vertigo, lumbar radiculopathy, cervical disc disease, all treated by Neurology Dr. Campos Also suffers from mild depression and anxiety Mild anemia most likely secondary to hemorrhoids, also have allergies and chronic GERD Along with urine urgency. She uses cane for ambulation secondary to chronic vertigo also treated by Neurology Patient says that due to weakness in her left upper extremity she is not able to hold any job, and because of vertigo she can not even drive. Currently she is going through paperwork for disability through city attorney And would like this note faxed over, which we will Patient says that she has signed the concern forms already Disability forms that she brought in we are not able to fill as that need to be filled through providers who specialized in disability evaluation. Patient was notified. BMI is elevated at 43.5 patient is morbidly obese, trying to lose weight Orders: Orders 2 Complete Blood Count Auto Diff Today D50.8 - Other iron deficiency anemias Ferritin Today D50.8 - Other iron deficiency anemias Coding Level of Care Code Est Pt Level 5 (60975) Diagnoses Other iron deficiency anemia D50.8 Anemia type: iron deficiency Iron deficiency anemia type: other iron deficiency Fibromyalgia M79.7 Environmental allergies Z91.09 Morbid obesity due to excess calories E66.01 Chronic GERD K21.9 Neuropathy G62.9 Overactive bladder N32.81 Depression with anxiety F41.8 Intractable migraine without status migrainosus, unspecified migraine type G43.919 Intractability: intractable Migraine type: unspecified Status migrainosus presence: without status migrainosus Vertigo R42 Instability of left knee joint M25.362 Use of cane as ambulatory aid Z99.89 Time Spent (min) 42 Comment Reviewing chart/Neurology notes/[id number]/charting/coordination of care
== END 2023-12-23 16:37 | disposition home or self-care (01) ==
PROVIDERS: PCP Internal Medicine; Visit Provider Internal Medicine
DX: D50.8 Other iron deficiency anemias (principal); E66.01 Morbid (severe) obesity due to excess calories; Z68.41 Body mass index [BMI] 40.0-44.9, adult; M79.7 Fibromyalgia; K21.9 Gastro-esophageal reflux disease without esophagitis; G62.9 Polyneuropathy, unspecified; N32.81 Overactive bladder; F41.8 Other specified anxiety disorders; G43.919 Migraine, unspecified, intractable, without status migrainosus; R42 Dizziness and giddiness; M25.362 Other instability, left knee; Z99.89 Dependence on other enabling machines and devices
CPT/HCPCS: 99215

== ENCOUNTER 2023-12-23 12:25 | Outpatient (REF) | payer OTHER, SELFPAY ==
[2023-12-23 13:37] LABS: MANUAL DIFF FLAG NO
[2023-12-23 13:54] LABS: Basophils Percent Auto 0.8 % (0-2); Eosinophils Absolute Auto 0.5 X10*3/uL (0.0-0.4); Eosinophils Percent Auto 10.9 % (0-4); Hematocrit 37.5 % (37.0-47.0); Hemoglobin 12.5 g/dl (12.0-16.0); Imm Gran Abs Auto 0.01 X10*3/uL (0.00-0.03); Imm Gran Pct Auto 0.2 % (0.0-0.4); Lymphocytes Absolute Auto 1.4 X10*3/uL (1.2-4.9); Lymphocytes Percent Auto 29.9 % (20-40); Mean Corpuscular HGB Conc 33.3 g/dl (31.0-35.0); Mean Corpuscular Hemoglobin 30.4 pg (27.0-33.0); Mean Corpuscular Volume 91.2 fL (80.0-98.0); Mean Platelet Volume 9.7 fL (9.4-12.3); Monocytes Absolute Auto 0.4 X10*3/uL (0.1-1.2); Monocytes Percent Auto 7.7 % (2-11); Neutrophils Absolute Auto 2.4 x10*3/uL (2.0-8.3); Neutrophils Percent Auto 50.5 % (45-73); Platelet Count 384 X10*3/uL (160-400); Red Blood Count 4.11 X10*6/uL (4.20-5.50); Red Cell Distribution Width 12.8 % (11.0-16.0); White Blood Count 4.8 X10*3/uL (4.8-10.8)
[2023-12-23 14:47] LABS: Ferritin 63 ng/mL (10-250)
== END 2023-12-23 12:26 | disposition home or self-care (01) ==
LOC: HO.HMGCLDS 12:25
PROVIDERS: PCP Internal Medicine; Visit Provider Internal Medicine
DX: D50.8 Other iron deficiency anemias (principal)
CPT/HCPCS: 36415; 82728; 85025

== ENCOUNTER 2024-01-16 10:29 | Outpatient (AMB) | payer OTHER, SELFPAY ==
--- NOTE | 2024-01-16 10:34 | MHC.OFFVIS ---
Vital Signs 01/16/24 10:35 Height 5 ft 7 in Weight 278 lb BMI 43.5 Intake Visit Reasons: PO-Lt knee quad repair s/p LT TKA Intake Note: Barbara is a 53 year old female who presents today for a post operative appointment s/p Left Knee Medial Retinaculum Repair 11/11/23. She continues to work with PT and wears her brace with ambulation of stairs and when out of the house. She is doing well, she has some pain with ambulation of stairs, and gait initiation. Continues to work with physical therapy who has been working on breakign up scar tissue. Allergies codeine [Tylenol-Codeine] Allergy (Severe, Verified 12/23/23 12:06) Vomiting compazine Allergy (Severe, Verified 12/23/23 12:06) Seizure hydromorphone [From DILAUDID] Allergy (Severe, Verified 12/23/23 12:06) VOMITING,DIZZY meperidine [Demerol] Allergy (Severe, Verified 12/23/23 12:06) Rash prednisone Allergy (Severe, Verified 12/23/23 12:06) skin blistering amoxicillin [AMOXICILLIN] Allergy (Intermediate, Verified 12/23/23 12:06) HIVES, THRUSH naproxen Adverse Reaction (Intermediate, Verified 12/23/23 12:06) Family History of Kidney Disease HPI HPI PO-Lt knee quad repair s/p LT TKA: Details: Barbara is a 53 year old female who presents today for a post operative appointment s/p Left Knee Medial Retinaculum Repair 11/11/23. She continues to work with PT and wears her brace with ambulation of stairs and when out of the house. She is doing well, she has some pain with ambulation of stairs, and gait initiation. Continues to work with physical therapy who has been working on breakign up scar tissue. [facility] Medical History Arm numbness left Neck pain Concussion Numbness and tingling in left arm Diverticulosis Tubular adenoma Osteoarthritis of left knee Chronic GERD Morbid obesity IBS (irritable bowel syndrome) Depression Asthma Anxiety disorder Chronic back pain Neuropathy delivery delivered Cholecystitis Fibromyalgia Arthritis Surgical History H/O colonoscopy H/O knee surgery H/O oophorectomy Hx of section Family History Maternal Grandmother Ovarian ca Sister Slow to wake up after anesthesia Other Substance use disorder Social History Household Members: Spouse Housing: House Are you a primary healthcare representative to a significant other at home: No Do you presently have visiting nurse or other home services: No Alcohol intake: current Alcohol intake frequency: holidays/special occasions only Alcohol type: beer Comment: COUNTS CORRECT Patient Tobacco Use Status: Former Tobacco user Quit Date: 4 years Tobacco use type: Cigarette Years Smoked: 15 years e-Cigarette/Vaping Use: Never Used Substance Use Type: Marijuana Advance Directives Date on File: 04/13/23 service: No 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al status: unemployed 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 Cognitive needs: No Hearing needs: No Vision needs: No Female Reproductive History Menstrual Age of Menarche: 12 Physical Exam Vital Signs: BMI result Body Mass Index 43.5 Extrem Other: 0-120 inc c/d/i no palpable defect left retinaculum/left quad Assessment & Plan Assessment & Plan (1) Traumatic medial retinacular tear of left knee: Code(s): S86.812A - Strain of other muscle(s) and tendon(s) at lower leg level, left leg, initial encounter Category: Medical Qualifiers: Encounter type: subsequent encounter Qualified Code(s): S86.812D - Strain of other muscle(s) and tendon(s) at lower leg level, left leg, subsequent encounter Plan: 53-year-old woman now 2 months status post retinacular repair left knee. Overall she is doing well. She still has some weakness but has full extension and can bend to approximately 120 degrees at this point. I recommend she continue strengthening and physical therapy. She can follow up in 6-9 months unless problems occur and then she may follow up at any time. Coding Level of Care Code Global (80835) Diagnoses Traumatic medial retinacular tear of left knee, subsequent encounter S86.812D Encounter type: subsequent encounter
[2024-01-16 10:35] VITALS: BMI 43.5
== END 2024-01-16 11:06 | disposition home or self-care (01) ==
PROVIDERS: PCP Internal Medicine; Visit Provider Orthopaedic Surgery
DX: S86.812D Strain of other muscle(s) and tendon(s) at lower leg level, left leg, subsequent encounter (principal)
CPT/HCPCS: 99024

== ENCOUNTER → 2024-01-16 10:29 | Outpatient (BNVA) | payer OTHER, SELFPAY | PROVIDERS: PCP Internal Medicine; Visit Provider Orthopaedic Surgery | DX: S86.812D Strain of other muscle(s) and tendon(s) at lower leg level, left leg, subsequent encounter (principal); X58.XXXD Exposure to other specified factors, subsequent encounter; Z96.652 Presence of left artificial knee joint | CPT/HCPCS: 99212 ==

== ENCOUNTER 2024-01-20 10:31 | Outpatient (REF) | payer OTHER, SELFPAY ==
--- NOTE | ~2024-01-20 | XR_ITS ---
EXAMINATION: XR CERVICAL SPINE CLINICAL INFORMATION: Radiculopathy cervical region. COMPARISON: 06/30/2022 TECHNIQUE: 6 views of the cervical spine, inclusive of flexion and extension views, were obtained. FINDINGS: Limited visualization of C6 and C7 due to overlying bone and soft tissue structures. Multilevel cervical spondylosis with [id number] loss of disc space height and hypertrophic change at C5-C6. Redemonstration of reversal of the normal cervical lordosis. Mild dextroscoliosis of the cervical spine. Facet hypertrophy with neural foraminal encroachment on the left at C5-C6. XR/XR cervical spine min 6V IMPRESSION: Multilevel cervical spondylosis most notable at C5-C6.
== END 2024-01-20 10:32 | disposition home or self-care (01) ==
LOC: HO.XRAY 10:31
PROVIDERS: PCP Internal Medicine; Referring Provider Psychiatry & Neurology Neurology; Visit Provider Nurse Practitioner Family
DX: M54.12 Radiculopathy, cervical region (principal); G44.86 Cervicogenic headache; M47.812 Spondylosis without myelopathy or radiculopathy, cervical region
CPT/HCPCS: 72052; 99202

== ENCOUNTER 2024-01-20 10:31 | Outpatient (AMB) | payer OTHER, SELFPAY ==
--- NOTE | 2024-01-20 10:35 | A.OFFVIS_ITS ---
Vital Signs 3 01/20/24 11:14 Height 5 ft 7 in Weight 274 lb BMI 42.9 BP 141/73 H Blood Pressure Location Rt brachial Position Sitting Pulse 94 Pulse Source Pulse Oximeter Pulse Oximetry (%) 96 Oxygen Delivery Method Room Air Intake Visit Reasons: CHRONIC NECK PAIN AND HEADACHE Intake Note: Pain today 01/19 Belt Changer Required: No Accompanied by: Spouse Allergies codeine [Tylenol-Codeine] Allergy (Severe, Verified 01/20/24 10:41) Vomiting compazine Allergy (Severe, Verified 01/20/24 10:41) Seizure hydromorphone [From DILAUDID] Allergy (Severe, Verified 01/20/24 10:41) VOMITING,DIZZY meperidine [Demerol] Allergy (Severe, Verified 01/20/24 10:41) Rash prednisone Allergy (Severe, Verified 01/20/24 10:41) skin blistering amoxicillin [AMOXICILLIN] Allergy (Intermediate, Verified 01/20/24 10:41) HIVES, THRUSH naproxen Adverse Reaction (Intermediate, Verified 01/20/24 10:41) Family History of Kidney Disease HPI HPI CHRONIC NECK PAIN AND HEADACHE: Details: Patient is a pleasant 53 years old female with prior history of chronic cervicogenic headaches, fibromyalgia, cervical degenerative disc disease, history of concussion, arthritis, anxiety and most recently onset of vertigo, presents today for initial evaluation of chronic neck pain with left sided radiculopathy. She was referred to us by her Neurologist, Dr. Campos. Most recent cervical MRI was completed in October and noted below. Patient reports axial cervical spine pain which radiates to her left shoulder and left upper arm with associated numbness, tingling and weakness. She also reports cervicogenic headaches on the right. Patient has tried to manage her symptoms with amitriptyline, cyclobenzaprine, Celebrex, duloxetine and also has been taking oxycodone for tendon repair after left TKR. Patient reports dizziness and imbalances episodes due to vertigo. EMR review noted for ER visit in 2020 due to mechanical fall with contusions with no apparent fractures or injuries and negative radiographic study. Denies previous spine surgery but reports remote injections over 15 years ago with various results. Denies any fever, chills, shortness of breaths, gait imbalances, bladder or bowel dysfunction or saddle anesthesia. Oswestry Neck Disability Score=40 (completely disabled) Location: Neck and chronic migraines Duration: Chronic pain >5 years Characteristics of symptom or complaint: Throbbing, sharp, tingling, tiring, freezing, burning, stabbing, numbness Aggravating or associated factors: Any movement, weather changes, cold, stress Relieving factors: Rest, oxycodone, NSAIDs, muscle relaxants, heat, activity modifications Treatment: PT, chiropractor, TENS, injections 15 years ago in [facility] Medical History Arm numbness left Neck pain Concussion Numbness and tingling in left arm Diverticulosis Tubular adenoma Osteoarthritis of left knee Chronic GERD Morbid obesity IBS (irritable bowel syndrome) Depression Asthma Anxiety disorder Chronic back pain Neuropathy delivery delivered Cholecystitis Fibromyalgia Arthritis Surgical History H/O colonoscopy H/O knee surgery H/O oophorectomy Hx of section Family History Maternal Grandmother Ovarian ca Sister Slow to wake up after anesthesia Other Substance use disorder Social History Household Members: Spouse Housing: House Are you a primary wound care technician to a significant other at home: No Do you presently have visiting nurse or other home services: No Alcohol intake: current Alcohol intake frequency: holidays/special occasions only Alcohol type: beer Comment: COUNTS CORRECT Patient Tobacco Use Status: Former Tobacco user Quit Date: 4 years Tobacco use type: Cigarette Years Smoked: 15 years e-Cigarette/Vaping Use: Never Used Substance Use Type: Marijuana Advance Directives Date on File: 04/13/23 service: No 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al status: unemployed 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 No acute distress. Alert and oriented. Mood and affect appropriate. Follows and participates in conversation appropriately. Respiratory effort is unlabored. No cough. Able to transition from sit to stand unassisted. Ambulates with bilaterally normal heel strike and toe off. HEENT Head: Yes normal to inspection, Yes No palpable skull fracture present, Yes normocephalic, Yes atraumatic, Yes occipital foramen tenderness (mild TTP ), No palpable skull fracture, No Temporal artery tenderness present and No periorbital ecchymosis Neck Other: Patient with decreased cervical ROM in all planes, especially with left lateral rotation. Reports increased pain with cervical extension and flexion. Spurling compression test equivocal. Pain is unchanged by Spurling maneuver with retraction. Elvey's tension test positive on the left, with radiation of pain from neck to wrist. Lhermitte's test was negative. DTR intact, +2 and symmetrical. Patient demonstrated 5/5 right 4/5 left motor strength of bilateral upper extremities. 2 + radial pulses. Significant tightness throughout left upper trapezius as well as TTP throughout bilateral upper trapezius and rhomboid muscles. No paravertebral tenderness over facet joints bilaterally. Multiple taut bands palpated throughout bilateral upper trapezius muscles. Neck: Yes no lymphadenopathy, Yes supple, No anterior neck swelling, No torticollis, Yes no JVD and Yes prominent dorsocervical fat pad Back/Spine/Pelvis Cervical Spine: No collar present, cervical muscular tenderness, pain with cervical ROM, No Cervical spine scars present, cervical spasm, No Cervical spine tenderness and No step off deformity Thoracic/Lumbar Spine: thoracic and lumbar spine normal to inspection, Lasegue's sign negative, straight leg raise negative bilaterally, pain with thoraco- lumbar ROM, paraspinal muscle tenderness, thoraco-lumbar ROM limited, No thoracic spinal tenderness and lumbar spinal tenderness at L4 and at L5 Results Reviewed Results Reviewed: Assessment & Plan Assessment & Plan (1) Degenerative disc disease: Category: Medical (2) Radiculitis of left cervical region: Code(s): M54.12 - Radiculopathy, cervical region Category: Medical (3) Cervicogenic headache: Code(s): G44.86 - Cervicogenic headache Category: Medical (4) Cervical spondylosis: Code(s): M47.812 - Spondylosis without myelopathy or radiculopathy, cervical region Category: Medical (5) Vertigo: Code(s): R42 - Dizziness and giddiness Category: Medical Plan Cervical spine imaging to assess degree of degenerative changes, any subluxation, listhesis, compression fractures or pars defects. Script provided for Vestibular PT for vertigo episodes. Schedule Left C5-C6 TFESI with local, fluoroscopy and oral Ativan for left sided cervical radicular symptoms. Expectations, risks and benefits were reviewed. Patient is aware she will be contacted to schedule this procedure. For axial cervical pain, we will tentatively plan for Right C3-C4-C5 MBB/Right Occipital Nerve Block with local and fluoroscopy. All questions and concerns have been answered and patient agreed with the plan. Follow up after injections and sooner as needed. Orders: Orders 2 XR cervical spine min 6V 01/20/24 G44.86 - Cervicogenic headache, M47.812 - Spondylosis without myelopathy or radiculopathy, cervical region, M54.12 - Radiculopathy, cervical region PT Evaluation and Treatment 01/20/24 R42 - Dizziness and giddiness Coding Level of Care Code New Pt Level 4 (29903) Diagnoses Degenerative disc disease Radiculitis of left cervical region M54.12 Cervicogenic headache G44.86 Cervical spondylosis M47.812 Vertigo R42
[2024-01-20 11:14] VITALS: BP 141/73; PULSE 94; O2SAT 96; BMI 42.9
== END 2024-01-20 12:06 | disposition home or self-care (01) ==
PROVIDERS: PCP Internal Medicine; Referring Provider Psychiatry & Neurology Neurology; Visit Provider Nurse Practitioner Family
DX: M54.12 Radiculopathy, cervical region (principal); G44.86 Cervicogenic headache; M47.812 Spondylosis without myelopathy or radiculopathy, cervical region; R42 Dizziness and giddiness
CPT/HCPCS: 99204

== ENCOUNTER 2024-01-26 11:00 | Outpatient (RCR) | payer OTHER, SELFPAY ==
--- NOTE | 2023-11-24 08:57 | MHC.PT.EP ---
[facility] [place] [facility] [place] [facility] [place] [facility] [address] Misty Regan [address] [phone] F: [phone] F: [phone] F: [phone] F: [phone] Physical Therapy Plan of Care Date of Evaluation: 11/24/23 Date of Surgery: 10/13/23 TKR, 11/11/23 retinaculum Diagnosis: This is a 53 yo female presenting to skilled PT with a script for s/p repair L medial retinaculum 11/11/23 s/p L TKA on 09/13/23. Assessment: This is a 53 yo female presenting to skilled PT with a script for s/p repair L medial retinaculum (11/11/23) s/p L TKA on 09/13/23. Pain is at the quad and patella tendon now, achy, sharp and stabbing. She also reports wound from hyacinth bandage, reports ortho does not know about this but will tell them today, she has been using Aquaphor on this. She is in a DonJoy locked in extension now, walking with a FWW. Eval from L TKA: Patient reporting that she had surgery at [facility] ortho on 09/13/2023. She recently also underwent the R knee on 04/13/23 and came here for rehab as well. After the L side TKR she went home after surgery and had home PT for about 5 visits. A few steri strips are left and gertrudis were removed last . She is ambulating with a rolling walker (did not use this prior) but has a quad based cane at home to start using. Pain comes and goes but increases with sit<>stands and walking. Her pain is located at the lateral joint line, quad muscle and lateral lower leg. Her assists now with driving, LB dressing and household tasks. Assessment reveals pain that ranges from up to a 7/10 at the worst. Patient demos decreased L knee ROM, strength LLE and quad, impaired skin healing and swelling, and impaired posture with forward head and rounded shoulders with decreased gait pattern and balance. Based on functional limitations, impaired QOL and pain tolerance patient is a good candidate for skilled PT 2x/wk for 5wks Frequency and Duration: The patient will be seen 2x/wk for 5wks Short Term Goals: I in HEP Improve knee AROM by at least 10 degs flexion Tolerate 10 SLR's without cues and without fatigue, using good quad contraction Ends Breakage Clerk Goals: Normalize gait without AD Demo reciprocal gait on stairs without compensatory movements Normalize knee AROM and strength Improve pain to no more than 3/10 at the worst Treatment Plan: Modalities to reduce pain, spasms and effusion. Manual therapy to restore motion and function. Therapeutic exercise to improve strength and flexibility. Neuromuscular re-education for posture and balance. Therapeutic activities to return to functional activities of daily living. Electronically signed by: Chana King PT Please sign and return to therapist. Thank you for your referral.
--- NOTE | 2024-01-27 09:37 | MHC.PT.DC ---
[facility] [place] [facility] [place] [facility] [place] [facility] [address] Misty Regan [address] [phone] F: [phone] F: [phone] F: [phone] F: [phone] Physical Therapy Discharge Report Diagnosis: This is a 53 yo female presenting to skilled PT with a script for s/p repair L medial retinaculum 11/11/23 s/p L TKA on 09/13/23. Date of Surgery: 10/13/23 TKR, 11/11/23 retinaculum Date of Evaluation: 11/24/23 Date of Discharge: 01/27/24 Treatments to Date: 12 Cancellations to Date: 0 No Shows to Date: 0 Discharge Status: Achieved Goals Improved Function Independent with HEP Discharge Summary: Patient has come to a sporadic 12 sessions of PT after TKR and then retinaculum repair. She demos good I in her HEP, good gait pattern with and without the cane and good ROM/strength. She is appropriate for DC at this time. DC to HEP. Electronically signed by: Chana Knig, PT Please sign and return to therapist. Thank you for your referral.
== END 2024-01-27 09:37 | disposition home or self-care (01) ==
LOC: HO.PTCHIC 11:00
PROVIDERS: PCP Internal Medicine; Visit Provider Physician Assistant
DX: S86.812D Strain of other muscle(s) and tendon(s) at lower leg level, left leg, subsequent encounter (principal); Z96.652 Presence of left artificial knee joint
CPT/HCPCS: 97110; 97140; 97162; 97530

== ENCOUNTER 2024-02-02 06:09 | Outpatient (REF) | payer OTHER, SELFPAY ==
--- NOTE | ~2024-02-02 | FL_ITS ---
EXAMINATION: XR FLUOROSCOPY WITH IMAGES CLINICAL INFORMATION: Radiculopathy, cervical. COMPARISON: None available. TECHNIQUE: Fluoroscopy Supervised By: Dr. Alin Cifuentes. Fluoroscopy Time: 0.1 minute. Cumulative Dose: 1.75 mGy. DAP: 0.53828 Gycm2. Images: 2. FINDINGS: Intraoperative fluoroscopy and spot films were performed during a procedure in the OR. Single needle present with contrast injection which appears to be in the cervical epidural space. Exact level cannot be ascertained secondary to marked coning of the images. Please see Dr. Alin Cifuentes's report for complete details. FL/FL guidance in treatment room IMPRESSION: Intraoperative fluoroscopy and spot films were obtained. Please see Dr. Alin Cifuentes's report for complete details.
== END 2024-02-02 06:10 | disposition home or self-care (01) ==
LOC: CF 06:09
PROVIDERS: Visit Provider Internal Medicine
DX: M47.22 Other spondylosis with radiculopathy, cervical region (principal)
CPT/HCPCS: 62321; J1100; Q9967

== ENCOUNTER 2024-02-02 08:40 | Outpatient (AMB) | payer OTHER, SELFPAY ==
[2024-02-02 09:31] VITALS: BP 140/90; PULSE 96; RESP 18; O2SAT 99; BMI 42.9
--- NOTE | 2024-02-02 09:31 | A.OFFVIS_ITS ---
Vital Signs 02/02/24 09:31 02/02/24 09:32 Height 5 ft 7 in Weight 274 lb BMI 42.9 BP 140/90 H 138/66 Blood Pressure Location Lt brachial Lt brachial Position Sitting Sitting Respiration 18 18 Pulse 96 83 Pulse Source Pulse Oximeter Pulse Oximeter Pulse Oximetry (%) 99 97 Oxygen Delivery Method Room Air Room Air Comment Pre-Op Post-Op Intake Visit Reasons: Left C5-C6 Interlaminar Allergies codeine [Tylenol-Codeine] Allergy (Severe, Verified 01/20/24 10:41) Vomiting compazine Allergy (Severe, Verified 01/20/24 10:41) Seizure hydromorphone [From DILAUDID] Allergy (Severe, Verified 01/20/24 10:41) VOMITING,DIZZY meperidine [Demerol] Allergy (Severe, Verified 01/20/24 10:41) Rash prednisone Allergy (Severe, Verified 01/20/24 10:41) skin blistering amoxicillin [AMOXICILLIN] Allergy (Intermediate, Verified 01/20/24 10:41) HIVES, THRUSH naproxen Adverse Reaction (Intermediate, Verified 01/20/24 10:41) Family History of Kidney Disease HPI HPI Left C5-C6 Interlaminar: Details: Patient presents for scheduled procedure. Denies any recent cough, cold, infection, fever or other significant changes in medical history since last office visit. [facility] Medical History Arm numbness left Neck pain Concussion Numbness and tingling in left arm Diverticulosis Tubular adenoma Osteoarthritis of left knee Chronic GERD Morbid obesity IBS (irritable bowel syndrome) Depression Asthma Anxiety disorder Chronic back pain Neuropathy delivery delivered Cholecystitis Fibromyalgia Arthritis Surgical History H/O colonoscopy H/O knee surgery H/O oophorectomy Hx of section Family History Maternal Grandmother Ovarian ca Sister Slow to wake up after anesthesia Other Substance use disorder Social History Household Members: Spouse Housing: House Are you a primary adult live in caregiver to a significant other at home: No Do you presently have visiting nurse or other home services: No Alcohol intake: current Alcohol intake frequency: holidays/special occasions only Alcohol type: beer Comment: COUNTS CORRECT Patient Tobacco Use Status: Former Tobacco user Quit Date: 4 years Tobacco use type: Cigarette Years Smoked: 15 years e-Cigarette/Vaping Use: Never Used Substance Use Type: Marijuana Advance Directives Date on File: 04/13/23 service: No 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al status: unemployed 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 The patient was placed in the prone position. The anatomic area was widely prepped with chloraprep and draped in sterile fashion. Fluoroscopic guidance was used to identify the desired interlaminar space and for needle placement. Subcutaneous 0.5% lidocaine was used to anesthetize the skin overlying the target. A 20-gauge Mathur needle was advanced to the epidural space using loss of resistance to contrast technique under fluoroscopic AP and contralateral oblique views. There was no evidence of heme or CSF and no paresthesias were elicited with needle placement. Confirmation of epidural needle placement was performed with 1cc of omnipaque 180. Next 3 ml 0.5% lidocaine mixed with 10 mg dexamethasone was administered epidurally with no pain elicited on injection. The needle tract tubing was then cleared with 1 ml of 0.5% lidocaine. The needle was removed, skin cleansed and a sterile bandage was applied. The patient tolerated the procedure well and no complications were encountered. Following the procedure the patient's vital signs were stable. The patient was discharged home in good condition with post-procedural instructions. Time Out: Immediately prior to the procedure, the following was verbally confirmed that there is a signed consent form and that the correct patient, planned procedure, site and side are consistent with documentation and that necessary equipment and/or blood products are available prior to the start of the case. Complications: none EBL: <5 cc Coding 76977 - Cervical Epidural/Interlaminar with fluoroscopy Procedure code (CPT) selection complete Assessment & Plan Assessment & Plan (1) Cervical spondylosis: Code(s): M47.812 - Spondylosis without myelopathy or radiculopathy, cervical region Category: Medical Plan Patient is status post left parasagittal C7-T1 interlaminar LUISA. Patient tolerated procedure well and was discharged home in stable condition with discharge instructions. All questions were answered. We will follow-up via telephone or in clinic to assess response to therapy. A follow-up appointment was made during today's visit. Orders: Orders FL guidance in treatment room Today M54.12 - Radiculopathy, cervical region Coding Level of Care Code Procedure Only Diagnoses Cervical spondylosis M47.812 CPT Codes Coding - Joint 10: 81273 - Cervical Epidural/Interlaminar with fluoroscopy ([id number])
[2024-02-02 09:32] VITALS: BP 138/66; PULSE 83; RESP 18; O2SAT 97
== END 2024-02-02 09:48 | disposition home or self-care (01) ==
PROVIDERS: PCP Internal Medicine; Visit Provider Internal Medicine
DX: M47.812 Spondylosis without myelopathy or radiculopathy, cervical region (principal)
CPT/HCPCS: 62321

== ENCOUNTER 2024-02-10 10:43 | Outpatient (AMB) | payer OTHER, SELFPAY ==
[2024-02-10 10:44] VITALS: BP 142/76; PULSE 95; O2SAT 98; BMI 43.9
--- NOTE | 2024-02-10 10:44 | MHC.PC.OV ---
Vital Signs 02/10/24 10:44 Height 5 ft 7 in Weight 280 lb 2 oz BMI 43.9 BP 142/76 H Blood Pressure Location Rt brachial Position Sitting Pulse 95 Pulse Source Pulse Oximeter Pulse Oximetry (%) 98 Oxygen Delivery Method Room Air Intake Visit Reasons: Anxiety Allergies codeine [Tylenol-Codeine] Allergy (Severe, Verified 02/10/24 10:50) Vomiting compazine Allergy (Severe, Verified 02/10/24 10:50) Seizure hydromorphone [From DILAUDID] Allergy (Severe, Verified 02/10/24 10:50) VOMITING,DIZZY meperidine [Demerol] Allergy (Severe, Verified 02/10/24 10:50) Rash prednisone Allergy (Severe, Verified 02/10/24 10:50) skin blistering amoxicillin [AMOXICILLIN] Allergy (Intermediate, Verified 02/10/24 10:50) HIVES, THRUSH naproxen Adverse Reaction (Intermediate, Verified 02/10/24 10:50) Family History of Kidney Disease Medication List - Last Reconciled 02/10/24 by Juliet Torres MD albuterol sulfate 90 mcg/actuation (ProAir HFA) 2 puffs inhalation Q6H PRN 90 days amitriptyline 25 mg PO BEDTIME cane quad cane celecoxib 200 mg PO BID cyclobenzaprine 10 mg PO BEDTIME docusate sodium 100 mg PO BID 30 days duloxetine (Cymbalta) 60 mg PO DAILY ferrous sulfate 324 mg PO BID 90 days fluticasone propionate 50 mcg/actuation 1 spray intranasal BID loratadine 10 mg PO DAILY 90 days omeprazole 40 mg PO DAILY@0630 tolterodine (Detrol) 2 mg PO BID 90 days Tobacco use date assessed: 02/10/24 Dental Screening Dental Screen Date: 02/10/24 Did you have a dental visit in the last 12 months?: Yes Did you have a dental problem in the last 6 months where you did not have access to dental care?: No Was dental information given to patient?: Patient has dentist HPI Anxiety HPI Details Patient came in today to talk about anxiety She is feeling overwhelmed because of finances She says that her landlord who is also her [id number] is forcing her to increase the rent And patient can not afford that. She is also going through court hearings trying to get disability approved Patient says that at times it is difficult for her to go on She is requesting help with that Patient is already on Cymbalta I see for pain management She is looking for something to be taken as needed She is requesting a script for lorazepam She says that she will only take it if she is feeling overwhelmed. Patient was notified that this medication is Habit forming and may cause Psychological dependence, It can cause drowsiness, dizziness, cognitive impairment , slowing of reflexes along with some other side effect . Due to controlled nature of this medication , it will require close monitoring , she does not drive Patient agrees. I have sent 30 tablets of lorazepam We will see how long it takes for patient to use the script and we will follow up accordingly [facility] Medical History Arm numbness left Neck pain Concussion Numbness and tingling in left arm Diverticulosis Tubular adenoma Osteoarthritis of left knee Chronic GERD Morbid obesity IBS (irritable bowel syndrome) Depression Asthma Anxiety disorder Chronic back pain Neuropathy delivery delivered Cholecystitis Fibromyalgia Arthritis Surgical History H/O colonoscopy H/O knee surgery H/O oophorectomy Hx of section Family History Maternal Grandmother Ovarian ca Sister Slow to wake up after anesthesia Other Substance use disorder Social History Household Members: Spouse Housing: House Are you a primary personal carer to a significant other at home: No Do you presently have visiting nurse or other home services: No Alcohol intake: current Alcohol intake frequency: holidays/special occasions only Alcohol type: beer Comment: COUNTS CORRECT Patient Tobacco Use Status: Former Tobacco user Tobacco use type: Cigarette Years Smoked: 15 years e-Cigarette/Vaping Use: Never Used Substance Use Type: Marijuana Advance Directives Date on File: 04/13/23 service: No 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al status: unemployed 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 1. Little interest or pleasure in doing things: more than half the days 2. Feeling down, depressed, or hopeless: more than half the days 3. Trouble falling or staying asleep, or sleeping too much: more than half the days 4. Feeling tired or having little energy: nearly every day 5. Poor appetite or overeating: more than half the days 6. Feeling bad about yourself - or that you are a failure or have let yourself or your family down: nearly every day 7. Trouble concentrating on things, such as reading the newspaper or watching television: more than half the days 8. Moving or speaking so slowly that other people could have noticed. Or the opposite - being so fidgety or restless that you have been moving around a lot more than usual: more than half the days 9. Thoughts that you would be better off or of hurting yourself in some way: not at all Total score: 18 Depression Screening Interpretation: Positive Depression Screening Follow-up: Existing condition and In treatment Depression Screening Done: Yes 56377 - PHQ-9 Billing: Yes Source: Developed by Drs. Joshua Munoz, Claudia Taylor, Kojo Frye and colleagues, with an educational jessica from [employer]. Thrive Questionnaire Date Thrive assessed: 02/10/24 I am a: Patient What is your living situation today?: I have a steady place to live Within the past 12 months, did the food you bought not last and you didn't have the money to get more?: Often true Within the past 12 months, did you worry whether your food would run out before you got money to buy more?: Often true Do you have trouble paying for medicines?: Yes Do you have trouble getting transportation to medical appointments?: No Do you have trouble paying your heating and electricity bill?: Yes Do you have trouble taking care of your child, family member or friend?: I choose not to answer this question Do you have trouble with day-to-day activities such as bathing, preparing meals, shopping, managing finances, etc.?: Yes Are you currently unemployed and looking for a job?: Yes Are you interested in more education?: No Please select the resources that you would like help with: None Currently or been in a relationship where the following occur: no concerns reported THRIVE Score: 3 AUDIT C Alcohol Use Questionnaire (AUDIT-C) 1. How often do you have a drink containing alcohol?: Monthly or less 2. How many drinks containing alcohol do you have on a typical day when you are drinking?: 1 or 2 3. How often do you have six or more drinks on one occasion?: Never Total Score: 1 Score Reviewed/Action Taken: Yes MIKE-7 AMB Questionnaire MIKE-7 Date MIKE - 7 assessed: 02/10/24 Feeling nervous, anxious, or on edge: 3 = Nearly every day Not being able to stop or control worryin = Nearly every day Worrying too much about different things: 3 = Nearly every day Trouble relaxin = Nearly every day Being so restless that it is hard to sit still: 2 = More than half the days Becoming easily annoyed or irritable: 3 = Nearly every day Feeling afraid as if something awful might happen: 3 = Nearly every day Total MIKE-7 score (0-4 normal; 5-9 mild; 10-14 moderate; 15-21 severe): 20 Source: Developed by Drs. Joshua Munoz, Claudia Taylor, Kojo Frye and colleagues, with an educational jessica from [employer]. MIKE-7 Assessment Billing MIKE-7 Assessment Tool: MIKE-7 Assessment 52091 Review of Systems Const Denies chills and Denies fever(s) ENT Denies epistaxis and Denies nasal discharge Card Denies chest pain Resp Denies chest congestion, Denies cough and Denies hemoptysis GI Denies diarrhea and Denies nausea Skin/Breast Denies rash Neuro Reports no additional complaints Psych Reports no additional complaints Endo Reports no additional complaints Physical exam (Primary Care) Vital Signs: Last Vital Signs Pulse 95 02/10/24 10:44 BP 142/76 H 02/10/24 10:44 Pulse Ox 98 02/10/24 10:44 Oxygen Delivery Method Room Air 02/10/24 10:44 BMI result Body Mass Index 43.9 Tobacco/Smoking Status: Tobacco use Status Tobacco use date assessed 02/10/24 02/10/24 10:51 Patient Tobacco Use Status Former Tobacco user 02/10/24 10:47 Tobacco use type Cigarette 02/10/24 10:47 e-Cigarette/Vaping Use Never Used 02/10/24 10:47 Depression Screening Interpretation: Positive Depression Screening Follow-up: Existing condition and In treatment Thrive Assessment: Date of Thrive Assessment Date Thrive assessed 09/23/23 02/10/24 10:47 Currently or been in a relationship where the following occur: no concerns reported Const General: cooperative, comfortable and no acute distress Orientation/consciousness: patient oriented x3 HENMT Head: Yes normocephalic Eyes General: appearance normal, both eyes and all related structures Neck Neck: Yes supple Resp Effort & Inspection: normal respiratory effort, no cough and no stridor Cardio Rhythm: regular rhythm Heart sounds: S1 normal heart sound present and S2 normal heart sound present Skin General skin exam: turgor normal Neuro General: patient oriented x3, tone normal and moves all extremities Extrem Right lower extremity: no edema Left lower extremity: no edema Assessment and Plan Assessment & Plan (1) Anxiety, generalized: Code(s): F41.1 - Generalized anxiety disorder (2) Stress at home: Code(s): F43.9 - Reaction to severe stress, unspecified (3) Financial difficulties: Code(s): Z59.9 - Problem related to housing and economic circumstances, unspecified Plan Patient came in today to talk about anxiety She is feeling overwhelmed because of finances She says that her landlord who is also her [id number] is forcing her to increase the rent And patient can not afford that. She is also going through court hearings trying to get disability approved Patient says that at times it is difficult for her to go on She is requesting help with that Patient is already on Cymbalta I see for pain management She is looking for something to be taken as needed She is requesting a script for lorazepam She says that she will only take it if she is feeling overwhelmed. Patient was notified that this medication is Habit forming and may cause Psychological dependence, It can cause drowsiness, dizziness, cognitive impairment , slowing of reflexes along with some other side effect . Due to controlled nature of this medication , it will require close monitoring , she does not drive Patient agrees. I have sent 30 tablets of lorazepam We will see how long it takes for patient to use the script and we will follow up accordingly Medications: New lorazepam 0.5 mg PO DAILY PRN 30 tabs 0RF anxiety Coding Level of Care Code Est Pt Level 3 (16923) Diagnoses Anxiety, generalized F41.1 Stress at home F43.9 Financial difficulties Z59.9 Additional Codes MIKE-7 Assessment Billing - MIKE-7 Assessment Tool: MIKE-7 Assessment 23851 ([id number])
== END 2024-02-10 11:50 | disposition home or self-care (01) ==
PROVIDERS: PCP Internal Medicine; Visit Provider Internal Medicine
DX: F41.1 Generalized anxiety disorder (principal); F43.9 Reaction to severe stress, unspecified; Z59.9 Problem related to housing and economic circumstances, unspecified
CPT/HCPCS: 99213

== ENCOUNTER 2024-02-20 10:33 | Outpatient (AMB) | payer OTHER, SELFPAY ==
--- NOTE | 2024-02-20 10:48 | HO.SPINEOV ---
Intake Visit Reasons: cervical radiculopathy Intake Note: Ms. Harris is here today c/o neck pain MRI done at [facility]. Oliver Filter Operator Required: No Allergies codeine [Tylenol-Codeine] Allergy (Severe, Verified 02/10/24 10:50) Vomiting compazine Allergy (Severe, Verified 02/10/24 10:50) Seizure hydromorphone [From DILAUDID] Allergy (Severe, Verified 02/10/24 10:50) VOMITING,DIZZY meperidine [Demerol] Allergy (Severe, Verified 02/10/24 10:50) Rash prednisone Allergy (Severe, Verified 02/10/24 10:50) skin blistering amoxicillin [AMOXICILLIN] Allergy (Intermediate, Verified 02/10/24 10:50) HIVES, THRUSH naproxen Adverse Reaction (Intermediate, Verified 02/10/24 10:50) Family History of Kidney Disease Assessment & Plan Assessment & Plan (1) Neck Pain: Code(s): M54.2 - Cervicalgia Category: Medical Plan Dear Zeina, Thank you for referring Barbara to our office today. She has a pleasant 53-year-old female who comes in today with a chief complaint of neck pain, migraines, numbness of her entire left arm (intermittent), and numbness of her right hand (intermittent). She is wearing a soft cervical neck brace which he states her primary care physician gave to her for ?comfort.? She reports she is currently followed by Dr. Campos in Neurology for her fibromyalgia. Her symptoms are very vague, and are waxing/waning per report. When asked what makes her symptoms worse she says: ?everything. ? When asked what makes her symptoms better she states: ?I took some narcotic pain medication left over from a knee surgery and that is the only thing that has made it better.? Of note, she is followed by our colleagues in pain management who referred her to our office after she reported continued pain despite recent left parasagittal C7-T1 interlaminar LUISA. She has been to physical therapy in the past (3 years ago) at [facility] in [place]. She states that this was modestly helpful at relieving her symptoms. She does state that her left arm numbness does seem to get worse at night when lying down. She is unable to identify any other specific exacerbating factors. PMH: Osteoarthritis, osteopenia, irritable bowel syndrome, fibromyalgia, depression, asthma, anxiety, gerd. History of left and right total knee arthroscopy in 2022 and 2023. Social hx: The patient does not smoke, reports no substance use. Medications: Celebrex, amitriptyline, Cymbalta, cyclobenzaprine, loratadine, omeprazole, albuterol, docusate, ferrous sulfate, loratadine, detrol. Allergies: NKDA. Physical exam: The patient has 5/5 strength in her upper and lower extremities on strength testing. She has no significant sensational deficits. Her reflexes are 1+ hypoactive in her right patella, but 2+ elsewhere. She is able to ambulate well and rises from a seated position without difficulty. (-) Dhillon's, (-) Tinel's at wrist, (-) clonus, (-) Lhermitte's, (-) Spurling's. Imaging review: MRI of the cervical spine completed at [facility] shows some cervical kyphosis occurring around C4-5, with subsequent loss of cervical lordosis. This is very mild in nature. There is some mild osteoarthritis noted in the cervical spine that I would attribute to normal spondylosis. There is no significant central canal or foraminal impingement. I also reviewed her cervical spine x-rays completed here at [facility] which show no acute instability. Impression: Barbara is a pleasant 53-year-old female who comes in today with a chief complaint of neck pain, migraines, left arm numbness, and right hand numbness. She is followed by Neurology and last saw them 1 month ago. She is also followed by pain management who attempted cortisone injections in the cervical spine, which provided little to no relief. There is no clear cervical spine pathology to explain her symptoms. She does not have any operable pathology noted on imaging review. I will be sending her for an EMG of her upper extremities to determine what, if any, neuropathology is causing her bilateral UE numbness. If this is unremarkable, and she continues to experience pain, I would encourage her to follow-up with pain management and discuss chronic pain control via implantable devices or medications. Additionally, she would greatly benefit from lifestyle changes such as regular exercise and dietary restrictions. This will aide in her halfway cervicalgia resolution. Thank you for allowing us to care for your patient. The total time spent with this visit with this patient was 45 minutes reviewing history, physical exam, MRI imaging review, and implementation of treatment plan or further diagnostic testing Jesús lOiveros MD,PhD [facility] Coding Level of Care Code Global (50257) Diagnoses Neck Pain M54.2
== END 2024-02-20 11:35 | disposition home or self-care (01) ==
PROVIDERS: PCP Internal Medicine; Referring Provider Nurse Practitioner Family; Visit Provider Physician Assistant
DX: M54.2 Cervicalgia (principal)
CPT/HCPCS: 99204

== ENCOUNTER → 2024-02-20 10:33 | Outpatient (BNVA) | payer OTHER, SELFPAY | PROVIDERS: PCP Internal Medicine; Visit Provider Physician Assistant | DX: Z01.419 Encounter for gynecological examination (general) (routine) without abnormal findings (principal); M54.2 Cervicalgia | CPT/HCPCS: 99202; 99396 ==

== ENCOUNTER 2024-02-20 12:43 | Outpatient (AMB) | payer OTHER, SELFPAY ==
--- NOTE | 2024-02-20 12:46 | A.OFFVIS_ITS ---
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 Required: No Information Interpreted: non-clinical & clinical Promotions Coordinator: Promotions Coordinator Present (Aidyn) Allergies codeine [Tylenol-Codeine] Allergy (Severe, Verified 02/20/24 12:49) Vomiting compazine Allergy (Severe, Verified 02/20/24 12:49) Seizure hydromorphone [From DILAUDID] Allergy (Severe, Verified 02/20/24 12:49) VOMITING,DIZZY meperidine [Demerol] Allergy (Severe, Verified 02/20/24 12:49) Rash prednisone Allergy (Severe, Verified 02/20/24 12:49) skin blistering amoxicillin [AMOXICILLIN] Allergy (Intermediate, Verified 02/20/24 12:49) HIVES, THRUSH naproxen Adverse Reaction (Intermediate, Verified 02/20/24 12:49) Family History of Kidney Disease Is last menstrual period known: No Post menopausal: Yes Patient : No HPI Comments Details: Presenting for annual exam. No complaints. Last Pap/HPV was negative in 12/31 Last Mammogram was BI-RADS 1 in 04/03 Last Colonoscopy was in 04/01, the recommendation was to repeat in 2 years [facility] Medical History Neck Pain Arm numbness left Neck pain Concussion Numbness and tingling in left arm Diverticulosis Tubular adenoma Osteoarthritis of left knee Chronic GERD Morbid obesity IBS (irritable bowel syndrome) Depression Asthma Anxiety disorder Chronic back pain Neuropathy delivery delivered Cholecystitis Fibromyalgia Arthritis Surgical History H/O colonoscopy H/O knee surgery H/O oophorectomy Hx of section Family History Maternal Grandmother Ovarian ca Sister Slow to wake up after anesthesia Other Substance use disorder Social History Household Members: Spouse Housing: House Are you a primary hospice care transitions coordinator to a significant other at home: No Do you presently have visiting nurse or other home services: No Alcohol intake: current Alcohol intake frequency: holidays/special occasions only Alcohol type: beer Comment: COUNTS CORRECT Patient Tobacco Use Status: Former Tobacco user Tobacco use type: Cigarette Years Smoked: 15 years e-Cigarette/Vaping Use: Never Used Substance Use Type: Marijuana Advance Directives Date on File: 04/13/23 Patient : No service: No 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al status: unemployed 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 Cognitive needs: No Hearing needs: No Vision needs: No Female Reproductive History Menstrual Age of Menarche: 12 control method: none Total pregnancies: 5 Full term: 2 Number of Living Children: 2 Ab spontaneous: 3 Date of last pap smear: 01/09/21 (negative) Date of Mammogram: 03/22/23 Review of Systems Const All systems reviewed & are unremarkable except as noted in HPI and below Card Reports as per HPI Resp Reports as per HPI GI Reports as per HPI and Reports no additional complaints Reports as per HPI Physical Exam Vital Signs: BMI result Body Mass Index 43.4 Const General: cooperative, healthy appearing and comfortable Chest Chest palpation & inspection: normal inspection of the chest and normal palpation of entire chest wall Breast/axilla inspection: normal inspection of the breasts and normal inspection of the axillae Breast/axilla palpation: normal palpation of the breasts, normal palpation of th e axillae and no axillary lymphadenopathy Resp Effort & Inspection: normal respiratory effort Auscultation: clear to auscultation bilaterally Percussion: percussion normal Cardio Palpation: normal PMI Rate: regular rate Rhythm: regular rhythm Heart sounds: no murmurs and no rubs Peripheral pulses: Peripheral pulses 2+ throughout GI Inspection: Yes normal to inspection Palpation (GI): Soft to palpation, nontender, no guarding, not rigid and No hepatosplenomegaly present Percussion: Yes normal to percussion Auscultation: normal bowel sounds Rectal Exam - Female: deferred General: Yes bladder normal to palpation External Female Exam: No lesion Speculum Exam - Vagina: normal appearance of the vagina, normal palpation, normal vaginal discharge and not erythematous Speculum Exam - Cervix: normal appearance of the cervix and normal palpation Bimanual exam- vagina & uterus: normal bimanual exam, normal palpation, uterine size normal, bladder normal to palpation, consistency normal and normal palpation Bimanual Exam- Adnexa, other: normal adnexae, no masses, no tenderness and Other (Left adnexa surgically absent) Assessment & Plan Assessment & Plan (1) Well woman exam: Code(s): Z01.419 - Encounter for gynecological examination (general) (routine) without abnormal findings Category: Medical Plan: Co testing not indicated this year. Counseled the patient about the recommended dietary allowance of 1200 mg of Calcium & 600 IU of vitamin D. Instructions given the patient to schedule next screening Mammogram, ordered. The patient was referred to GI for screening colonoscopy . The patient was instructed to perform monthly self-breast exams and schedule annual exam in a year. All questions answered and the patient verbalized understanding. Orders: Orders MM tomosynthesis screening BI Today Z12.31 - Encounter for screening mammogram for malignant neoplasm of breast Referrals Gastroenterology Referral Z12.11 - Encounter for screening for malignant neoplasm of colon Coding Level of Care Code Est Pt Prev Care 40-64y(42101) Diagnoses Well woman exam Z01.419
[2024-02-20 12:48] VITALS: BP 120/90; BMI 43.4
== END 2024-02-20 13:09 | disposition home or self-care (01) ==
PROVIDERS: PCP Internal Medicine; Visit Provider Obstetrics & Gynecology
DX: Z01.419 Encounter for gynecological examination (general) (routine) without abnormal findings (principal)
CPT/HCPCS: 99396

== ENCOUNTER 2024-03-01 11:14 | Outpatient (AMB) | payer OTHER, SELFPAY ==
[2024-03-01 11:19] VITALS: BP 143/87; PULSE 99; O2SAT 97; BMI 43.4
--- NOTE | 2024-03-01 11:19 | A.OFFVIS_ITS ---
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 Chief Required: No Accompanied by: Self / Same As Patient Allergies codeine [Tylenol-Codeine] Allergy (Severe, Verified 03/01/24 11:20) Vomiting compazine Allergy (Severe, Verified 03/01/24 11:20) Seizure hydromorphone [From DILAUDID] Allergy (Severe, Verified 03/01/24 11:20) VOMITING,DIZZY meperidine [Demerol] Allergy (Severe, Verified 03/01/24 11:20) Rash prednisone Allergy (Severe, Verified 03/01/24 11:20) skin blistering amoxicillin [AMOXICILLIN] Allergy (Intermediate, Verified 03/01/24 11:20) HIVES, THRUSH naproxen Adverse Reaction (Intermediate, Verified 03/01/24 11:20) Family History of Kidney Disease HPI Comments Details: Patient is one month status post left parasagittal C7-T1 interlaminar LUISA on 02/02/[address] Cifuentes. Patient reports 40% pain relief since procedure with mild relief in her daily activities, functioning but not sleep. She continues to endorse bilateral hand numbness with tingling especially when she is sleeping, neck pain with radiation into her right occipital region on the right. She was evaluated by [facility] on 02/20/24 and was deemed non-surgical per patient's current symptoms, exam and imaging review. She was recommended to complete EMG studies which patient reports were done by her Neurologist Dr. Campos on 02/23/24. EMG report is not available for review today. Patient reports, her neurologist told her no pinched nerve and continue with injections. We will send request for EMG report. In meantime, patient is interested to address her cervicogenic headache with right sided neck pain with cervical medial branch blocks and occipital nerve block on the right. Patient is also awaiting to start Vestibular PT for vertigo episodes. Denies any recent cough, cold, infection, fever, any significant changes in her medical history, medications or recent hospitalizations. Past Procedures: 02/02/24: Left parasagittal C7-T1 interlaminar LUISA-40% pain relief PRIOR: Patient is a pleasant 53 years old female with prior history of chronic cervicogenic headaches, fibromyalgia, cervical degenerative disc disease, history of concussion, arthritis, anxiety and most recently onset of vertigo, presents today for initial evaluation of chronic neck pain with left sided radiculopathy. She was referred to us by her Neurologist, Dr. Campos. Most recent cervical MRI was completed in October and noted below. Patient reports axial cervical spine pain which radiates to her left shoulder and left upper arm with associated numbness, tingling and weakness. She also reports cervicogenic headaches on the right. Patient has tried to manage her symptoms with amitriptyline, cyclobenzaprine, Celebrex, duloxetine and also has been taking oxycodone for tendon repair after left TKR. Patient reports dizziness and imbalances episodes due to vertigo. EMR review noted for ER visit in 2020 due to mechanical fall with contusions with no apparent fractures or injuries and negative radiographic study. Denies previous spine surgery but reports remote injections over 15 years ago with various results. Denies any fever, chills, shortness of breaths, gait imbalances, bladder or bowel dysfunction or saddle anesthesia. Oswestry Neck Disability Score=40 (completely disabled) Location: Neck and chronic migraines Duration: Chronic pain >5 years Characteristics of symptom or complaint: Throbbing, sharp, tingling, tiring, freezing, burning, stabbing, numbness Aggravating or associated factors: Any movement, weather changes, cold, stress Relieving factors: Rest, oxycodone, NSAIDs, muscle relaxants, heat, activity modifications Treatment: PT, chiropractor, TENS, injections 15 years ago in [facility] Medical History Neck Pain Arm numbness left Neck pain Concussion Numbness and tingling in left arm Diverticulosis Tubular adenoma Osteoarthritis of left knee Chronic GERD Morbid obesity IBS (irritable bowel syndrome) Depression Asthma Anxiety disorder Chronic back pain Neuropathy delivery delivered Cholecystitis Fibromyalgia Arthritis Surgical History H/O colonoscopy H/O knee surgery H/O oophorectomy Hx of section Family History Maternal Grandmother Ovarian ca Sister Slow to wake up after anesthesia Other Substance use disorder Social History Household Members: Spouse Housing: House Are you a primary in home caregiver to a significant other at home: No Do you presently have visiting nurse or other home services: No Alcohol intake: current Alcohol intake frequency: holidays/special occasions only Alcohol type: beer Comment: COUNTS CORRECT Patient Tobacco Use Status: Former Tobacco user Tobacco use type: Cigarette Years Smoked: 15 years e-Cigarette/Vaping Use: Never Used Substance Use Type: Marijuana Advance Directives Date on File: 04/13/23 service: No 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al status: unemployed 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 No acute distress. Alert and oriented. Mood and affect appropriate. Follows and participates in conversation appropriately. Respiratory effort is unlabored. No cough. Able to transition from sit to stand unassisted. Ambulates with bilaterally normal heel strike and toe off. HEENT Head: Yes normal to inspection, Yes No palpable skull fracture present, Yes normocephalic, Yes atraumatic, Yes occipital foramen tenderness (mild TTP ), No palpable skull fracture, No Temporal artery tenderness present and No periorbital ecchymosis Neck Other: Patient with decreased cervical ROM in all planes, especially with lateral rotations bilaterally. Reports increased pain with cervical extension. Spurling compression test is negative. Pain is unchanged by Spurling maneuver with retraction. Elvey's tension test positive on the left, with radiation of pain from neck to wrist. Lhermitte's test was negative. DTR intact, +2 and symmetrical. Patient demonstrated 5/5 motor strength of bilateral upper extremities. 2 + radial pulses. Multiple fibromyalgia tender points upper and lower extremities. Neck: Yes normal visual inspection, Yes no lymphadenopathy, Yes supple, No anterior neck swelling, No torticollis, Yes no JVD and Yes prominent dorsocervical fat pad Back/Spine/Pelvis Cervical Spine: cervical muscular tenderness, pain with cervical ROM, No Cervical spine scars present, cervical spasm and No Cervical spine tenderness Thoracic/Lumbar Spine: thoracic and lumbar spine normal to inspection, pain with thoraco-lumbar ROM, paraspinal muscle tenderness, thoraco-lumbar ROM limited, No thoracic spinal tenderness and lumbar spinal tenderness at L4 and at L5 Extrem General: Yes capillary refill normal, Yes no clubbing, cyanosis or edema and Yes no calf tenderness Results Reviewed Results Reviewed: Assessment & Plan Assessment & Plan (1) Degenerative disc disease: Category: Medical (2) Radiculitis of left cervical region: Code(s): M54.12 - Radiculopathy, cervical region Category: Medical (3) Cervicogenic headache: Code(s): G44.86 - Cervicogenic headache Category: Medical (4) Cervical spondylosis: Code(s): M47.812 - Spondylosis without myelopathy or radiculopathy, cervical region Category: Medical (5) Vertigo: Code(s): R42 - Dizziness and giddiness Category: Medical (6) Bilateral arm numbness and tingling while sleeping: Code(s): R20.0 - Anesthesia of skin; R20.2 - Paresthesia of skin Category: Medical Plan Patient is status post left C7-T1 epidural steroidal injection with partial pain relief and minimal improvement in her functioning but not sleep. She reports recently undergoing EMG studies with her neurologist, we will send request for official EMG reports to Dr. Campos's office. For ongoing axial cervical pain with cervicogenic headaches, we will proceed with Right C3-C4-C5 MBB/Right Occipital Nerve Blocks with local and fluoroscopy as previously planned. Expectations, risks and benefits were reviewed. Patient is aware she will be contacted to schedule this procedure. Proceed with Vestibular PT for vertigo episodes, script provided at previous visit. Patient encouraged to continue daily physical activity, exercise, adequate hydration, good posture, well-balanced diet, consider intermittent fasting or Mediterranean diet, and weight optimization. All questions and concerns have been answered and patient agreed with the plan. Follow up after injections and sooner as needed. Coding Level of Care Code Est Pt Level 4 (94960) Diagnoses Degenerative disc disease Radiculitis of left cervical region M54.12 Cervicogenic headache G44.86 Cervical spondylosis M47.812 Vertigo R42 Bilateral arm numbness and tingling while sleeping R20.0; R20.2
== END 2024-03-01 11:31 | disposition home or self-care (01) ==
PROVIDERS: PCP Internal Medicine; Visit Provider Nurse Practitioner Family
DX: M54.12 Radiculopathy, cervical region (principal); G44.86 Cervicogenic headache; M47.812 Spondylosis without myelopathy or radiculopathy, cervical region; R42 Dizziness and giddiness; R20.0 Anesthesia of skin; R20.2 Paresthesia of skin
CPT/HCPCS: 99214

== ENCOUNTER → 2024-03-01 11:14 | Outpatient (BNVA) | payer OTHER, SELFPAY | PROVIDERS: PCP Internal Medicine; Visit Provider Nurse Practitioner Family | DX: M54.12 Radiculopathy, cervical region (principal); M47.812 Spondylosis without myelopathy or radiculopathy, cervical region; G44.86 Cervicogenic headache; R42 Dizziness and giddiness; R20.0 Anesthesia of skin; R20.2 Paresthesia of skin | CPT/HCPCS: 99212 ==

== ENCOUNTER 2024-03-09 11:17 | Emergency (ER) | payer OTHER, SELFPAY ==
--- NOTE | ~2024-03-09 | XR_ITS ---
EXAMINATION: XR SHOULDER, LEFT CLINICAL INFORMATION: Fall. Pain. COMPARISON: Previous x-ray March 2015 TECHNIQUE: Three views of the left shoulder. FINDINGS: The bones and soft tissues are normal. No fracture. Glenohumeral and acromioclavicular alignment is anatomic with normal joint space. No abnormal soft tissue calcifications. XR/XR shoulder LT min 2V IMPRESSION: Normal left shoulder.
--- NOTE | ~2024-03-09 | CT_ITS ---
EXAMINATION: CT HEAD WITHOUT CONTRAST CLINICAL INFORMATION: Fall. Head injury. Headache. COMPARISON: Previous head CT most recent October 2021 TECHNIQUE: Contiguous axial imaging was performed from the skull base to vertex without intravenous administration of contrast. This CT examination was performed using dose optimization techniques as appropriate, variously including the following: *Automated exposure control *Adjustment of mA and/or kV according to patient size (this includes techniques or standardized protocols for targeted exams where dose is matched to indication/reason for exam; i.e. extremities or head) *Use of iterative reconstruction technique DLP: 785 mGy-cm FINDINGS: There is no evidence for an extra-axial collection. There is no evidence for intra-or extra-axial hemorrhage. The ventricles and extra-axial CSF spaces are appropriate. Sorensen-white matter differentiation is normal. No mass, mass effect or infarct is seen. No skull fracture. Degenerative changes at the left temporomandibular joint. Clear paranasal sinuses mastoid air cells and middle ears. CT/CT head/brain wo IV con IMPRESSION: No acute intracranial pathology.
--- NOTE | ~2024-03-09 | CT_ITS ---
EXAMINATION: CT CERVICAL SPINE WITHOUT CONTRAST CLINICAL INFORMATION: Fall COMPARISON: Previous cervical spine x-ray 01/20/2024 TECHNIQUE: Axial images through the cervical spine. Sagittal and coronal reconstructions. This CT examination was performed using dose optimization techniques as appropriate, variously including the following: *Automated exposure control *Adjustment of mA and/or kV according to patient size (this includes techniques or standardized protocols for targeted exams where dose is matched to indication/reason for exam; i.e. extremities or head) *Use of iterative reconstruction technique DLP: 692 mGy-cm FINDINGS: Bone alignment is normal. No fracture or dislocation. Mild degenerative spondylosis and degenerative disc disease at C5-C6 and C6-C7. Mild degenerative changes at the C1 dens articulation. Prevertebral soft tissues are normal. Visualized lung apices are clear. CT/CT cervical spine wo IV con IMPRESSION: Degenerative changes. No fracture or dislocation. Fleischner guidelines were followed.
--- NOTE | 2024-03-09 11:31 | ED_ITS ---
HPI - Fall General Chief Complaint: Fall Stated Complaint: fall Time Seen by Provider: 03/09/24 11:31 Source: patient Mode of arrival: ambulatory Limitations: no limitations History of Present Illness HPI Narrative: patient is a 53-year-old presents emergency department for evaluation. She reports a mechanical trip and fall outside 4 days ago where she landed supine. It is unclear whether she struck her head but she did hear a snap . She admits to having frequent intermittent headache so she has a history of migraines, acute on chronic diffuse neck pain and low onset left shoulder pain since the fall. She reports a history of severe arthritis to his cervical spine, is following with the pain management Clinic through [facility] and has had cortisone injections. She contact the pain management today and she was advised to come to the emergency department for evaluation. She denies dizziness, lightheadedness, vision changes, numbness or tingling of the extremities, bladder bowel dysfunction, saddle paresthesias. She has been ambulatory with a steady gait since the fall denies any confusion. Migraines have been resolved with use of amitriptyline night. She has trialed Flexeril 10 mg twice daily and reports very minimal improvement in her and left shoulder pain. Related Data Home Medications ?Medication ?Instructions ?Recorded ?Confirmed duloxetine 30 mg capsule,delayed 60 mg PO DAILY 04/07/23 02/10/24 release (Cymbalta) amitriptyline 25 mg tablet 25 mg PO BEDTIME 09/01/23 02/10/24 cyclobenzaprine 10 mg tablet 10 mg PO BEDTIME 09/01/23 02/10/24 Previous Rx's ?Medication ?Instructions ?Recorded albuterol sulfate 90 mcg/actuation 2 puff inhalation Q6H PRN 12/21/22 aerosol inhaler (ProAir HFA) shortness of breath or wheezing 90 days #8.5 grams docusate sodium 100 mg capsule 100 mg PO BID 30 days #60 caps 09/15/23 cane #1 ea 12/28/23 omeprazole 40 mg capsule,delayed 40 mg PO DAILY@0630 #90 caps 01/09/24 release loratadine 10 mg tablet 10 mg PO DAILY 90 days #90 tabs 01/10/24 tolterodine 2 mg tablet (Detrol) 2 mg PO BID 90 days #180 tabs 01/10/24 celecoxib 200 mg capsule 200 mg PO BID #60 caps 01/27/24 lorazepam 0.5 mg tablet 0.5 mg PO DAILY PRN anxiety #30 02/10/24 tabs doxycycline hyclate 100 mg capsule 100 mg PO DAILY 1 day #1 cap 02/15/24 fluticasone propionate 50 1 spray intranasal BID #48 grams 03/06/24 mcg/actuation nasal spray,suspension oxycodone 5 mg tablet 5 mg PO Q6H PRN pain #10 tabs 03/09/24 Allergies Allergy/AdvReac Type Severity Reaction Status Date / Time codeine [Tylenol-Codeine] Allergy Severe Vomiting Verified 03/09/24 11:38 compazine Allergy Severe Seizure Verified 03/09/24 11:38 hydromorphone [From DILAUDID] Allergy Severe VOMITING,DI Verified 03/09/24 11:38 ZZY meperidine [Demerol] Allergy Severe Rash Verified 03/09/24 11:38 prednisone Allergy Severe skin Verified 03/09/24 11:38 blistering amoxicillin [AMOXICILLIN] Allergy Intermediate HIVES, Verified 03/09/24 11:38 THRUSH naproxen AdvReac Intermediate Family Verified 03/09/24 11:38 History of Kidney Disease PMFSH Past Medical History Medical History Neck Pain Arm numbness left Neck pain Concussion Numbness and tingling in left arm Diverticulosis Tubular adenoma Osteoarthritis of left knee Chronic GERD Morbid obesity IBS (irritable bowel syndrome) Depression Asthma Anxiety disorder Chronic back pain Neuropathy delivery delivered Cholecystitis Fibromyalgia Arthritis Surgical History H/O colonoscopy H/O knee surgery H/O oophorectomy Hx of section Family History Family History Maternal Grandmother Ovarian ca Sister Slow to wake up after anesthesia Other Substance use disorder Social History Social History Household Members: Spouse Housing: House Are you a primary technical healthcare consultant to a significant other at home: No Do you presently have visiting nurse or other home services: No Alcohol intake: current Alcohol intake frequency: holidays/special occasions only Alcohol type: beer Comment: COUNTS CORRECT Patient Tobacco Use Status: Former Tobacco user Tobacco use type: Cigarette Years Smoked: 15 years e-Cigarette/Vaping Use: Never Used Substance Use Type: Marijuana Advance Directives: Yes Advance Directives on File: Yes Advance Directives Date on File: 04/13/23 Do you have a plan to hurt others: No Plan service: No 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al status: unemployed 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 XR shoulder evidence of acute fracture dislocation consistent with sprain/contusion. She reports significant improvement with oxycodone. I discussed with patient will send a very short prescription to the pharmacy but recommend that she follow-up closely with her pain management / PCP outpatient for further management should her symptoms persist for longer asked her this acute injury. She verbalized understanding. She has ambulatory with a steady gait. Has no focal deficits at this time. Medications Administered Discontinued Medications Generic Name Dose Route Start Last Admin Trade Name Freq PRN Reason Stop Dose Admin Oxycodone HCl 5 mg 03/09/24 11:40 03/09/24 11:46 Oxycodone Hcl Immed Release 5 Mg Tablet PO 03/09/24 11:41 5 mg ONCE ONE Administration Medical Decision Making Medical Decision Making MDM Narrative: patient is a 53-year-old female with past medical history of cervical spondylosis status post left parasagittal C7-T1 interlaminar LUISA on 02/02/[address] Cifuentes evaluated at [facility] spine center 03/01/2024 and deemed nonsurgical, reportedly has had EMG completed and was told by Neurology Dr. Campos there was no pinched nerve and she should continue with injections. 03/01/24 had right C3-C4-C5 MBB /right occipital nerve blocks. She presents to the emergency department for evaluation after mechanical fall as per HPI, has no focal neurological deficits on examination. Decreased range of motion to the left shoulder particularly with overhead extension. Extremities are neurovascularly intact distally. Does not have exam findings concerning for cauda equina syndrome. Given her history of underlying cervical spine disease will obtain CT for further evaluation, evaluate for fracture subluxation. She is tried muscle relaxants as far without improvement pain, will trial analgesics with opioid management Differential Diagnosis Differential Diagnoses: The differential diagnosis associated with the presentation includes ( Fracture, subluxation, ICH, SDH, pink session, shoulder sprain, rotator cuff injury, acute fracture) Admission/Observation Consideration of admission/observation: Escalation of care including admission/observation considered Independent Interpretation I performed an independent interpretation of an: Plain X-Ray ( No acute fracture of the shoulder) Radiology Impression Discussion of test interpretation with radiology: I have reviewed the radiologist's reading. Radiologist Impression: CT/CT head/brain wo IV con IMPRESSION: No acute intracranial pathology. FINDINGS: Bone alignment is normal. No fracture or dislocation. Mild degenerative spondylosis and degenerative disc disease at C5-C6 and C6-C7. Mild degenerative changes at the C1 dens articulation. Prevertebral soft tissues are normal. Visualized lung apices are clear. CT/CT cervical spine wo IV con IMPRESSION: Degenerative changes. No fracture or dislocation. XR/XR shoulder LT min 2V IMPRESSION: Normal left shoulder. External Record Review External record reviewed: Outpatient record Discharge Plan Discharge Clinical Impression: Cervical spondylosis, Fall Instructions: Chronic Neck Pain (DC) Additional Instructions: You can take ibuprofen 200 mg, 3 tablets (600mg) every 6-8 hours as needed for pain, in addition to Tylenol 500 mg, 2 tablets (1,000mg) every 4-6 hours as needed for pain, but not to exceed 3 doses daily (3,000mg).? For pain that is unrelieved by ibuprofen /acetaminophen a short prescription for oxycodone was sent to your pharmacy. This is a narcotic medication. It can be addictive. It may make you drowsy. Do not drive, drink alcohol, or work while taking this medication. please follow-up closely with pain management and your primary care provider for persistent symptoms. You may return back to emergency department any new or worsening symptoms or concerns Prescriptions: New oxycodone 5 mg tablet 5 mg PO Q6H PRN (Reason: pain) Qty: 10 0RF Rx Instructions: Partial Fill upon patient request. No Action albuterol sulfate [ProAir HFA] 90 mcg/actuation HFA aerosol inhaler 2 puff inhalation Q6H PRN (Reason: shortness of breath or wheezing) 90 Days Qty: 8.5 0RF Rx Instructions: dispense which ever albuterol inhaler is covered under patients insurance (DME) cane Device See Rx Instructions .MEDSUPPLY Qty: 1 0RF Rx Instructions: quad cane omeprazole 40 mg capsule,delayed release(DR/EC) 40 mg PO DAILY@0630 Qty: 90 0RF tolterodine [Detrol] 2 mg tablet 2 mg PO BID 90 Days Qty: 180 0RF loratadine 10 mg tablet 10 mg PO DAILY 90 Days Qty: 90 0RF celecoxib 200 mg capsule 200 mg PO BID Qty: 60 0RF doxycycline hyclate 100 mg capsule 100 mg PO DAILY 1 Days Qty: 1 3RF Rx Instructions: one tab 1 hr prior to dental appt fluticasone propionate 50 mcg/actuation spray,suspension 1 spray intranasal BID Qty: 48 0RF duloxetine [Cymbalta] 30 mg capsule,delayed release(DR/EC) 60 mg PO DAILY cyclobenzaprine 10 mg tablet 10 mg PO BEDTIME amitriptyline 25 mg tablet 25 mg PO BEDTIME docusate sodium 100 mg Capsule 100 mg PO BID 30 Days Qty: 60 0RF lorazepam 0.5 mg tablet 0.5 mg PO DAILY PRN (Reason: anxiety) Qty: 30 0RF Referrals: Juliet Torres MD [Primary Care Provider] - Print Language: [place]
[2024-03-09 11:35] VITALS: BP 154/78; PULSE 100; RESP 16; TEMP 36.6; O2SAT 96; BMI 44.5
[2024-03-09] MEDS: oxyCODONE HCl Immed Release 5 MG TABLET PO (11:46)
[2024-03-09 13:24] VITALS: BP 149/82; PULSE 83; RESP 17; TEMP 36.6; O2SAT 100
[2024-03-09 15:15] VITALS: BP 150/83; PULSE 83; RESP 16; TEMP 36.6; O2SAT 98
== END 2024-03-09 15:20 | disposition home or self-care (01) ==
PROVIDERS: Emergency Provider Emergency Medicine; PCP Internal Medicine
DX: M47.892 Other spondylosis, cervical region (principal); R51.9 Headache, unspecified; M54.2 Cervicalgia; M25.512 Pain in left shoulder
CPT/HCPCS: 70450; 72125; 73030; 99283

== ENCOUNTER 2024-03-22 06:17 | Outpatient (REF) | payer OTHER, SELFPAY | END 2024-03-22 06:18 | disposition home or self-care (01) | LOC: CF 06:17 | PROVIDERS: Visit Provider Internal Medicine | DX: Z13.89 Encounter for screening for other disorder (principal) ==

== ENCOUNTER 2024-03-30 07:49 | Outpatient (RCR) | payer OTHER, SELFPAY ==
[2024-03-30 07:56] VITALS: BP 128/68
--- NOTE | 2024-03-30 08:58 | MHC.PT.DC ---
[facility] [place] Office [place] Office [place] Office [address] Misty Regan [address] [phone] F: [phone] F: [phone] F: [phone] F: [phone] Physical Therapy Discharge Report Diagnosis: BPPV dizziness and giddiness Date of Surgery: Date of Evaluation: 03/30/24 Date of Discharge: Treatments to Date: 1 Cancellations to Date: 0 No Shows to Date: 0 Discharge Status: Discharge Summary: 53 y/o female referred to PT with dizziness and giddiness and BPPV. She reports chronic neck pain that limits ADL s and functional mobility, difficulty with prolonged walking, reports getting lightheaded and hot when ambulating in grocery stores. Examination shows normal oculomotor tests, negative VBI test, good static balance with eyes open and closed, 20/24 DGI (impairments with slow gait speed, no significant change in velocity with gait speed change, use of rail on stairs), and negative for BPPV in all test positions. Pt sx may be cervical in nature. At this time, she declines PT for neck pain as she has had PT several times and will be having injection soon. PT not indicated at this time and she will f/u with regardin cervical issues Electronically signed by: Please sign and return to therapist. Thank you for your referral.
--- NOTE | 2024-03-30 08:58 | MHC.PT.DC ---
[facility] [place] Office [place] Office [place] Office [address] Misty Regan [address] [phone] F: [phone] F: [phone] F: [phone] F: [phone] Physical Therapy Discharge Report Diagnosis: BPPV dizziness and giddiness Date of Surgery: Date of Evaluation: 03/30/24 Date of Discharge: 03/30/24 Treatments to Date: 1 Cancellations to Date: 0 No Shows to Date: 0 Discharge Status: Recommend MD Follow-up Discharge Summary: 53 y/o female referred to PT with dizziness and giddiness and BPPV. She reports chronic neck pain that limits ADL s and functional mobility, difficulty with prolonged walking, reports getting lightheaded and hot when ambulating in grocery stores. Examination shows normal oculomotor tests, negative VBI test, good static balance with eyes open and closed, 20/24 DGI (impairments with slow gait speed, no significant change in velocity with gait speed change, use of rail on stairs), and negative for BPPV in all test positions. Pt sx may be cervical in nature. At this time, she declines PT for neck pain as she has had PT several times and will be having injection soon. PT not indicated at this time and she will f/u with MD regardin cervical issues Electronically signed by: Please sign and return to therapist. Thank you for your referral.
== END 2024-03-30 08:58 | disposition home or self-care (01) ==
LOC: HO.PTCHIC 07:49
PROVIDERS: PCP Internal Medicine; Visit Provider Nurse Practitioner Family
DX: R42 Dizziness and giddiness (principal); H81.13 Benign paroxysmal vertigo, bilateral
CPT/HCPCS: 97161

== ENCOUNTER 2024-04-09 10:13 | Outpatient (REF) | payer OTHER, SELFPAY ==
--- NOTE | ~2024-04-09 | MM_ITS ---
EXAMINATION: MM SCREENING DIGITAL BREAST TOMOSYNTHESIS, BILATERAL CLINICAL INFORMATION: Screening. Asymptomatic. COMPARISON: Mammography: This study is compared with prior exams dating back to 2020. TECHNIQUE: Digital breast tomosynthesis is performed in both the craniocaudal and mediolateral oblique views along with computer-aided detection (CAD). Synthesized 2D images are generated from the tomosynthesis. FINDINGS: The breasts are almost entirely fatty (ACR BI-RADS breast composition Category a). There are no significant masses, abnormal calcifications, or other abnormalities. MM/MM tomosynthesis screening BI IMPRESSION: No mammographic evidence of malignancy. ASSESSMENT: BI-RADS BI-RADS 1 - Negative RECOMMENDATION: Routine annual mammography screening. 1 year F/U This examination should not preclude the clinical evaluation of a suspicious palpable abnormality. This patient's information was entered into a reminder system with a target due date for their next mammogram.
== END 2024-04-09 10:14 | disposition home or self-care (01) ==
LOC: HO.MAMMO 10:13
PROVIDERS: PCP Internal Medicine; Visit Provider Internal Medicine
DX: Z12.31 Encounter for screening mammogram for malignant neoplasm of breast (principal)
CPT/HCPCS: 77063; 77067

== ENCOUNTER → 2024-04-09 10:15 | Outpatient (BNV) | payer OTHER, SELFPAY | PROVIDERS: PCP Internal Medicine; Visit Provider Radiology Diagnostic Radiology | DX: Z12.31 Encounter for screening mammogram for malignant neoplasm of breast (principal) | CPT/HCPCS: 77063; 77067 ==

== ENCOUNTER 2024-04-12 06:28 | Outpatient (REF) | payer OTHER, SELFPAY ==
--- NOTE | ~2024-04-12 | FL_ITS ---
EXAMINATION: XR FLUOROSCOPY WITH IMAGES CLINICAL INFORMATION: Spondylosis without myelopathy or radiculopathy, cervical region COMPARISON: CT cervical spine 03/09/2024 TECHNIQUE: Fluoroscopy provided to: Dr. Cifuentes Fluoroscopy time: 0.1 minutes DAP: 0.0118 mGycm2 Images: 2 FINDINGS: Coned-down spot AP and lateral upper cervical spine images demonstrate [address] right C2, C3, and C4 nerve root sheaths, with subsequent contrast injection. FL/FL guidance in treatment room IMPRESSION: Fluoroscopic guidance. Please refer to the full operative report for details. Electronically signed by: Lavon Tejeda MD 06/07/2024 02:16 PM EDT
== END 2024-04-12 06:29 | disposition home or self-care (01) ==
LOC: CF 06:28
PROVIDERS: Visit Provider Internal Medicine
DX: M47.812 Spondylosis without myelopathy or radiculopathy, cervical region (principal)
CPT/HCPCS: 64490; 64491; J2795; Q9967

== ENCOUNTER 2024-04-12 13:01 | Outpatient (AMB) | payer OTHER, SELFPAY ==
[2024-04-12 13:10] VITALS: BP 166/81; PULSE 92; RESP 18; O2SAT 98
[2024-04-12 13:39] VITALS: BP 163/95; PULSE 85; RESP 18; O2SAT 99
--- NOTE | 2024-04-12 13:39 | MHC.OFFVIS ---
Vital Signs 04/12/24 13:10 04/12/24 13:39 BP 166/81 H 163/95 H Blood Pressure Location Lt brachial Rt brachial Position Sitting Sitting Respiration 18 18 Pulse 92 85 Pulse Source Pulse Oximeter Pulse Oximeter Pulse Oximetry (%) 98 99 Oxygen Delivery Method Room Air Room Air Comment Pre-op Post-op Intake Visit Reasons: Right Dx C3-C4-C5 MBB Allergies codeine [Tylenol-Codeine] Allergy (Severe, Verified 03/09/24 11:38) Vomiting compazine Allergy (Severe, Verified 03/09/24 11:38) Seizure hydromorphone [From DILAUDID] Allergy (Severe, Verified 03/09/24 11:38) VOMITING,DIZZY meperidine [Demerol] Allergy (Severe, Verified 03/09/24 11:38) Rash prednisone Allergy (Severe, Verified 03/09/24 11:38) skin blistering amoxicillin [AMOXICILLIN] Allergy (Intermediate, Verified 03/09/24 11:38) HIVES, THRUSH naproxen Adverse Reaction (Intermediate, Verified 03/09/24 11:38) Family History of Kidney Disease HPI HPI Right Dx C3-C4-C5 MBB: Details: Patient presents for scheduled procedure. Denies any recent cough, cold, infection, fever or other significant changes in medical history since last office visit. FORMERLY [facility], [facility] Medical History Neck Pain Arm numbness left Neck pain Concussion Numbness and tingling in left arm Diverticulosis Tubular adenoma Osteoarthritis of left knee Chronic GERD Morbid obesity IBS (irritable bowel syndrome) Depression Asthma Anxiety disorder Chronic back pain Neuropathy delivery delivered Cholecystitis Fibromyalgia Arthritis Surgical History H/O colonoscopy H/O knee surgery H/O oophorectomy Hx of section Family History Maternal Grandmother Ovarian ca Sister Slow to wake up after anesthesia Other Substance use disorder Social History Household Members: Spouse Housing: House Are you a primary health care legal assistant to a significant other at home: No Do you presently have visiting nurse or other home services: No Alcohol intake: current Alcohol intake frequency: holidays/special occasions only Alcohol type: beer Comment: COUNTS CORRECT Patient Tobacco Use Status: Former Tobacco user Tobacco use type: Cigarette Years Smoked: 15 years e-Cigarette/Vaping Use: Never Used Substance Use Type: Marijuana Advance Directives Date on File: 04/13/23 service: No 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al status: unemployed 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 The patient was placed in a lateral position. The respective cervical area was prepped with chloraprep and draped in sterile fashion. The skin over the target medial branch nerves was anesthetized with 0.5% lidocaine. A 25 gauge 1.5 inch needle was inserted into the target medial branch nerve under fluoroscopic guidance. No paresthesias were elicited with needle placement and aspiration was negative for blood and CSF. Next, 0.2cc of omnipaque 180 was injected to verify positioning. Next 0.5 ml 0.5% ropivicaine was injected (0.5 cc total per level). The identical procedure was performed at the remaining levels. The skin was cleansed and a sterile bandage was applied. Following the procedure the patient's vital signs were stable. The patient tolerated the procedure well and no complications were encountered. Following the procedure the patient's vital signs were stable. The patient was discharged home in good condition with post-procedural instructions. Time Out: Immediately prior to the procedure, the following was verbally confirmed that there is a signed consent form and that the correct patient, planned procedure, site and side are consistent with documentation and that necessary equipment and/or blood products are available prior to the start of the case. Complications: none EBL: <5 cc 00815 - with Fluoroscopy 27990 - second level, with Fluoroscopy Procedure code (CPT) selection complete Assessment & Plan Assessment & Plan (1) Cervical spondylosis: Code(s): M47.812 - Spondylosis without myelopathy or radiculopathy, cervical region Category: Medical Plan Patient is status post right C3, C4, C5 medial branch blocks. Patient tolerated procedure well and was discharged home in stable condition with discharge instructions. All questions were answered. We will follow-up via telephone or in clinic to assess response to therapy. A follow-up appointment was made during today's visit. Orders: Orders FL guidance in treatment room Today M47.812 - Spondylosis without myelopathy or radiculopathy, cervical region Coding Level of Care Code Procedure Only Diagnoses Cervical spondylosis M47.812 CPT Codes Facet Injection Cervical/Thoracic - CPT: 30227 - with Fluoroscopy ([id number]) Facet Injection Cervical/Thoracic - CPT: 98478 - second level, with Fluoroscopy ([id number])
== END 2024-04-12 13:36 | disposition home or self-care (01) ==
LOC: HO.PMCPRC 13:01
PROVIDERS: PCP Internal Medicine; Visit Provider Internal Medicine
DX: M47.812 Spondylosis without myelopathy or radiculopathy, cervical region (principal)
CPT/HCPCS: 64490; 64491

== ENCOUNTER 2024-04-20 10:31 | Outpatient (AMB) | payer OTHER, SELFPAY ==
[2024-04-20 10:36] VITALS: BP 137/76; PULSE 87; O2SAT 98; BMI 44.5
--- NOTE | 2024-04-20 10:36 | A.OFFVIS_ITS ---
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 Required: No Accompanied by: Self / Same As Patient Allergies codeine [Tylenol-Codeine] Allergy (Severe, Verified 04/20/24 10:37) Vomiting compazine Allergy (Severe, Verified 04/20/24 10:37) Seizure hydromorphone [From DILAUDID] Allergy (Severe, Verified 04/20/24 10:37) VOMITING,DIZZY meperidine [Demerol] Allergy (Severe, Verified 04/20/24 10:37) Rash prednisone Allergy (Severe, Verified 04/20/24 10:37) skin blistering amoxicillin [AMOXICILLIN] Allergy (Intermediate, Verified 04/20/24 10:37) HIVES, THRUSH naproxen Adverse Reaction (Intermediate, Verified 04/20/24 10:37) Family History of Kidney Disease Medication List - Last Reconciled 04/20/24 by MOSES Brody albuterol sulfate 90 mcg/actuation (ProAir HFA) 2 puffs inhalation Q6H PRN 90 days amitriptyline 25 mg PO BEDTIME cane quad cane celecoxib 200 mg PO BID cyclobenzaprine 10 mg PO BID PRN doxycycline hyclate 100 mg PO DAILY 1 day duloxetine (Cymbalta) 60 mg PO DAILY fluticasone propionate 50 mcg/actuation 1 spray intranasal BID loratadine 10 mg PO DAILY 90 days lorazepam 0.5 mg PO DAILY PRN omeprazole 40 mg PO DAILY@0630 tolterodine (Detrol) 2 mg PO BID 90 days HPI Comments Details: Patient presents today for follow up to assess response to Diagnostic Right C3-C4-C5 MBB on 04/12/[address] Cifuentes. Patient reports ongoing 100% pain relief since procedure for right sided neck pain this partial improvement in her daily functioning, range of motion and sleep. Patient continues to endorse significant left-sided neck pain with radicular symptoms, axial pain is worse today than radicular symptoms. She had minimal pain relief with left C7-T1 LUISA in January and was also evaluated by [facility] on 02/20/24 and deemed non-surgical per patient's current symptoms, exam and imaging review. She was recommended to complete EMG studies which patient reports were done by her Neurologist Dr. Campos on 02/23/24. EMG report is not available for review today. Patient reports, her neurologist told her no pinched nerve and continue with injections. We have pending request for EMG report. Patient is interested to undergo cervical medial branch blocks on the left to address facetogenic pain. Denies any recent cough, cold, infection, fever, any significant changes in her medical history, medications or recent hospitalizations. Past Procedures: 02/02/24: Left parasagittal C7-T1 interlaminar LUISA-40% pain relief PRIOR: Patient is a pleasant 53 years old female with prior history of chronic cervicogenic headaches, fibromyalgia, cervical degenerative disc disease, history of concussion, arthritis, anxiety and most recently onset of vertigo, presents today for initial evaluation of chronic neck pain with left sided radiculopathy. She was referred to us by her Neurologist, Dr. Campos. Most recent cervical MRI was completed in October and noted below. Patient reports axial cervical spine pain which radiates to her left shoulder and left upper arm with associated numbness, tingling and weakness. She also reports cervicogenic headaches on the right. Patient has tried to manage her symptoms with amitriptyline, cyclobenzaprine, Celebrex, duloxetine and also has been taking oxycodone for tendon repair after left TKR. Patient reports dizziness and imbalances episodes due to vertigo. EMR review noted for ER visit in 2020 due to mechanical fall with contusions with no apparent fractures or injuries and negative radiographic study. Denies previous spine surgery but reports remote injections over 15 years ago with various results. Denies any fever, chills, shortness of breaths, gait imbalances, bladder or bowel dysfunction or saddle anesthesia. Oswestry Neck Disability Score=40 (completely disabled) Location: Neck and chronic migraines Duration: Chronic pain >5 years Characteristics of symptom or complaint: Throbbing, sharp, tingling, tiring, freezing, burning, stabbing, numbness Aggravating or associated factors: Any movement, weather changes, cold, stress Relieving factors: Rest, oxycodone, NSAIDs, muscle relaxants, heat, activity modifications Treatment: PT, chiropractor, TENS, injections 15 years ago in [facility] Medical History Neck Pain Arm numbness left Neck pain Concussion Numbness and tingling in left arm Diverticulosis Tubular adenoma Osteoarthritis of left knee Chronic GERD Morbid obesity IBS (irritable bowel syndrome) Depression Asthma Anxiety disorder Chronic back pain Neuropathy delivery delivered Cholecystitis Fibromyalgia Arthritis Surgical History H/O colonoscopy H/O knee surgery H/O oophorectomy Hx of section Family History Maternal Grandmother Ovarian ca Sister Slow to wake up after anesthesia Other Substance use disorder Social History Household Members: Spouse Housing: House Are you a primary insurance healthcare representative to a significant other at home: No Do you presently have visiting nurse or other home services: No Alcohol intake: current Alcohol intake frequency: holidays/special occasions only Alcohol type: beer Comment: COUNTS CORRECT Patient Tobacco Use Status: Former Tobacco user Tobacco use type: Cigarette Years Smoked: 15 years e-Cigarette/Vaping Use: Never Used Substance Use Type: Marijuana Advance Directives Date on File: 04/13/23 service: No 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al status: unemployed 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 Alert and oriented. Mood and affect appropriate. Follows and participates in conversation appropriately. Respiratory effort is unlabored. No cough. Able to transition from sit to stand unassisted. Ambulates with bilaterally normal heel strike and toe off. HEENT Head: Yes normal to inspection, Yes No palpable skull fracture present, Yes normocephalic, Yes atraumatic, Yes occipital foramen tenderness (mild TTP ), No palpable skull fracture, No Temporal artery tenderness present and No periorbital ecchymosis Neck Other: Patient with decreased cervical ROM in all planes, especially with lateral rotations on the left. Reports increased pain with cervical extension. Spurling compression test is negative. Pain is unchanged by Spurling maneuver with retraction. Elvey's tension test is negative. Lhermitte's test was negative. DTR intact, +2 and symmetrical. Patient demonstrated 5/5 motor strength of bilateral upper extremities. 2 + radial pulses. Multiple fibromyalgia tender points upper and lower extremities. Neck: Yes normal visual inspection, Yes no lymphadenopathy, Yes supple, No anterior neck swelling, No torticollis, Yes no JVD and Yes prominent dorsocervical fat pad Back/Spine/Pelvis Cervical Spine: cervical muscular tenderness, pain with cervical ROM, No Cervical spine scars present, cervical spasm and No Cervical spine tenderness Thoracic/Lumbar Spine: thoracic and lumbar spine normal to inspection, pain with thoraco-lumbar ROM, paraspinal muscle tenderness, thoraco-lumbar ROM limited, No thoracic spinal tenderness and lumbar spinal tenderness at L4 and at L5 Results Reviewed Results Reviewed: Assessment & Plan Assessment & Plan (1) Radiculitis of left cervical region: Code(s): M54.12 - Radiculopathy, cervical region Category: Medical (2) Cervicogenic headache: Code(s): G44.86 - Cervicogenic headache Category: Medical (3) Cervical spondylosis: Code(s): M47.812 - Spondylosis without myelopathy or radiculopathy, cervical region Category: Medical (4) Fibromyalgia: Code(s): M79.7 - Fibromyalgia Category: Medical (5) Muscle spasm: Code(s): M62.838 - Other muscle spasm Category: Medical Plan Patient is status post diagnostic right-sided cervical medial branch blocks with ongoing 100% pain relief and partial improvement in her functioning but not sleep due to left sided neck pain. For ongoing axial cervical pain on left side with cervicogenic headaches, we will proceed with Left C3-C4-C5 MBB with local and fluoroscopy. Expectations, risks and benefits were reviewed. Patient is aware she will be contacted to schedule this procedure. Patient encouraged to continue daily physical activity, exercise, adequate hydration, good posture, well-balanced diet, consider intermittent fasting or Mediterranean diet, and weight optimization. All questions and concerns have been answered and patient agreed with the plan. Follow up after injections and sooner as needed. Coding Level of Care Code Est Pt Level 4 (86703) Diagnoses Radiculitis of left cervical region M54.12 Cervicogenic headache G44.86 Cervical spondylosis M47.812 Fibromyalgia M79.7 Muscle spasm M62.838
== END 2024-04-20 10:53 | disposition home or self-care (01) ==
PROVIDERS: PCP Internal Medicine; Visit Provider Nurse Practitioner Family
DX: M54.12 Radiculopathy, cervical region (principal); G44.86 Cervicogenic headache; M47.812 Spondylosis without myelopathy or radiculopathy, cervical region; M79.7 Fibromyalgia; M62.838 Other muscle spasm
CPT/HCPCS: 99214

== ENCOUNTER → 2024-04-20 10:31 | Outpatient (BNVA) | payer OTHER, SELFPAY | PROVIDERS: PCP Internal Medicine; Visit Provider Nurse Practitioner Family | DX: M47.22 Other spondylosis with radiculopathy, cervical region (principal); G44.86 Cervicogenic headache; M79.7 Fibromyalgia; M62.838 Other muscle spasm | CPT/HCPCS: 99212 ==

== ENCOUNTER 2024-04-30 15:23 | Emergency (ER) | payer OTHER, SELFPAY ==
[2024-04-30 16:28] VITALS: BP 162/85; PULSE 90; RESP 18; O2SAT 100; BMI 45.2
--- NOTE | 2024-04-30 16:29 | ED_ITS ---
HPI - Neck Pain/Injury General Chief Complaint: General Medical Stated Complaint: L Shoulder Neck Pain Time Seen by Provider: 04/30/24 16:54 Source: patient, RN notes reviewed and old records reviewed Mode of arrival: ambulatory Limitations: no limitations History of Present Illness ED Provider: Batool Oneill PA-C HPI Narrative: 53-year-old female with a past medical history vertigo, migraines, anemia, osteoarthritis, cervical spondylosis followed by pain management, presenting to the ED complaining of acute on chronic left-sided neck pain radiating to left shoulder with associated numbness/tingling. Reports pain has been worsening over the past 3 days. Denies injury/trauma or fall. Admits went to pain management however they could not schedule her so was instructed to come to the ED. Currently takes Flexeril, Celebrex, and had steroid injections with some relief. Denies chest pain/shortness of breath, fever MD complaint: neck pain Radiation: left shoulder and left upper extremity Related Data Home Medications ?Medication ?Instructions ?Recorded ?Confirmed duloxetine 30 mg capsule,delayed 60 mg PO DAILY 04/07/23 02/10/24 release (Cymbalta) amitriptyline 25 mg tablet 25 mg PO BEDTIME 09/01/23 02/10/24 cyclobenzaprine 10 mg tablet 10 mg PO BID PRN 04/20/24 Previous Rx's ?Medication ?Instructions ?Recorded albuterol sulfate 90 mcg/actuation 2 puff inhalation Q6H PRN 12/21/22 aerosol inhaler (ProAir HFA) shortness of breath or wheezing 90 days #8.5 grams cane #1 ea 12/28/23 loratadine 10 mg tablet 10 mg PO DAILY 90 days #90 tabs 01/10/24 doxycycline hyclate 100 mg capsule 100 mg PO DAILY 1 day #1 cap 02/15/24 fluticasone propionate 50 1 spray intranasal BID #48 grams 03/06/24 mcg/actuation nasal spray,suspension celecoxib 200 mg capsule 200 mg PO BID #60 caps 03/30/24 lorazepam 0.5 mg tablet 0.5 mg PO DAILY PRN anxiety #30 03/30/24 tabs tolterodine 2 mg tablet (Detrol) 2 mg PO BID 90 days #180 tabs 04/09/24 omeprazole 40 mg capsule,delayed 40 mg PO DAILY@0630 #90 caps 04/11/24 release morphine 15 mg immediate release 15 mg PO Q6H PRN pain (scale score 04/30/24 tablet 7-10) 3 days #9 tabs Allergies Allergy/AdvReac Type Severity Reaction Status Date / Time codeine [Tylenol-Codeine] Allergy Severe Vomiting Verified 04/30/24 16:31 compazine Allergy Severe Seizure Verified 04/30/24 16:31 hydromorphone [From DILAUDID] Allergy Severe VOMITING,DI Verified 04/30/24 16:31 ZZY meperidine [Demerol] Allergy Severe Rash Verified 04/30/24 16:31 prednisone Allergy Severe skin Verified 04/30/24 16:31 blistering amoxicillin [AMOXICILLIN] Allergy Intermediate HIVES, Verified 04/30/24 16:31 THRUSH naproxen AdvReac Intermediate Family Verified 04/30/24 16:31 History of Kidney Disease Review of Systems Review of Systems: Constitutional: No Fever, No Chills ENT/Mouth: No Ear Pain, No Nasal Congestion, No sore throat, No Rhinorrhea, No Swallowing Difficulty Cardiovascular: No Chest Pain, No SOB Respiratory: No Cough, No Sputum, No Wheezing Gastrointestinal: No Nausea, No Vomiting, No Diarrhea, No Constipation, No Abdominal pain Genitourinary: No Dysuria, No Urinary Incontinence/retention, No Urgency, No Flank Pain Musculoskeletal: + joint pain, + Myalgias , No Joint Swelling Skin: No Skin Lesions, No rash Neuro: + Weakness due to pain left arm/shoulder, + Numbness, + Paresthesias Yes all other systems are reviewed and are negative Constitutional: Constitutional: Reports as per [facility] Past Medical History Attestation statement: The following information was validated with the patient. Source: old records reviewed Medical History Neck Pain Arm numbness left Neck pain Concussion Numbness and tingling in left arm Diverticulosis Tubular adenoma Osteoarthritis of left knee Chronic GERD Morbid obesity IBS (irritable bowel syndrome) Depression Asthma Anxiety disorder Chronic back pain Neuropathy delivery delivered Cholecystitis Fibromyalgia Arthritis Surgical History H/O colonoscopy H/O knee surgery H/O oophorectomy Hx of section Family History Family History Maternal Grandmother Ovarian ca Sister Slow to wake up after anesthesia Other Substance use disorder Social History Social History Household Members: Spouse Housing: House Are you a primary floor care specialist to a significant other at home: No Do you presently have visiting nurse or other home services: No Alcohol intake: current Alcohol intake frequency: holidays/special occasions only Alcohol type: beer Comment: COUNTS CORRECT Patient Tobacco Use Status: Former Tobacco user Tobacco use type: Cigarette Years Smoked: 15 years e-Cigarette/Vaping Use: Never Used Substance Use Type: Marijuana Advance Directives: Yes Advance Directives on File: Yes Advance Directives Date on File: 04/13/23 service: No 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al status: unemployed 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 Cognitive needs: No Hearing needs: No Vision needs: No Physical Exam Vital Signs: Vital Signs: Last Vital Signs Temp 97.8 F 04/30/24 18:30 Pulse 81 04/30/24 18:30 Resp 16 04/30/24 18:30 BP 155/80 H 04/30/24 18:30 Pulse Ox 100 04/30/24 18:30 O2 Del Method Room Air 04/30/24 18:30 BMI result Body Mass Index 45.2 Const: General: cooperative, healthy appearing, no acute distress, alert and awake Orientation/consciousness: patient oriented x3 Limitations: no limitations HEENT: Head: Yes normal to inspection and Yes atraumatic Ears: hearing grossly normal bilaterally General nose exam: Normal external nose present Face and sinus: Yes normal facial exam Eyes: General: appearance normal, both eyes and all related structures EOM: EOMs intact bilaterally Neck: Other: + left-sided cervical paraspinal and tra pezius muscle reproducible tenderness. No deformity Neck: Yes normal visual inspection, No full ROM (Limited ROM due to pain to the left side) and Yes no meningeal signs Resp: Effort & Inspection: normal respiratory effort and no respiratory distress Auscultation: clear to auscultation bilaterally Cardio: Rate: regular rate Heart sounds: S1 normal heart sound present and S2 normal heart sound present GI: Inspection: Yes normal to inspection Palpation (GI): Soft to palpation, nontender, no guarding and not rigid : General: Yes no CVA tenderness Back/Spine/Pelvis: Other: No midline cervical/thoracic/lumbar spinous tenderness/step-off or deformity Back: no CVA tenderness Cervical Spine: normal cervical lordosis Skin: Rashes: no rashes Wounds: no wounds Neuro: General: patient oriented x3, gait normal, tone normal, moves all extremities, no meningeal signs and no focal motor deficits Cranial nerves: Yes CN's II-XII intact bilaterally Gait exam (Neuro): Normal gait present Motor exam (neuro): 5/5 motor strength present throughout Extrem: General: Yes normal to inspection Course Course Course Narrative: This is a Rapid Medical Examination (RME) performed by Dash Cueva PA-C in triage. Full HPI, ROS, assessment and treatment plan per primary provider in the Main ED. 53 yo female with fibromyalgia, chronic neck pain followed by pain management here presents to the ER for evaluation of severe left sided neck pain since 5am today. Last injection was a few weeks ago on the right side. Awaiting insurance authorization for left sided injection. Pain is in the posterior neck and radiates down the left arm and causes numbness. Taking muscle relaxers and cymbalta, celebrex with no relief. She states Pain Management told her to come to the ER. Plan: treat pain in [facility] Medications Administered Discontinued Medications Generic Name Dose Route Start Last Admin Trade Name Freq PRN Reason Stop Dose Admin Morphine Sulfate 15 mg 04/30/24 17:55 04/30/24 18:04 Morphine Sulfate Immed Release 15 Mg Tablet PO 04/30/24 17:56 15 mg ONCE ONE Administration Medical Decision Making Medical Decision Making [facility] Narrative: 53-year-old female with a past medical history vertigo, migraines, anemia, osteoarthritis, cervical spondylosis followed by pain management, presenting to the ED complaining of acute on chronic left-sided neck pain radiating to left shoulder with associated numbness/tingling. On exam vital signs stable, NAD, nontoxic appearing, physical exam as noted above without midline spinous tenderness. No focal deficits. No appreciable weakness. Concern for acute on chronic MSK pain/strain vs cervical spondylosis. Low suspicion for fracture, cord compression, ACS Plan: Pain control Please refer to course for remaining clinical decision making, interpretation of labs/imaging results, and discussions with consultants and/or family members. Differential Diagnosis Differential Diagnoses: The differential diagnosis associated with the presentation includes As above Admission/Observation Consideration of admission/observation: Escalation of care including admission/observation considered Lab Data MDM Lab Attestation statement: I reviewed the patient's lab results. Radiology Impression Discussion of test interpretation with radiology: I have reviewed the radiologist's reading. External Record Review External record reviewed: Inpatient record, Office record, Outpatient record, Prior outpatient labs, Prior outpatient radiology, Primary care record and Outside ED record Tests considered The following testing was considered but not selected: As above Prescription Management I considered prescription management with: Pain Medication Discharge Plan Discharge Clinical Impression: Chronic neck pain Patient Disposition: Home, Self-Care Instructions: Chronic Neck Pain (DC) Additional Instructions: Continue taking previously prescribed medications In addition morphine as an opiate pain medication, take only when pain is severe for the next 3 days. If symptoms persist or worsen, your weakness, headache, vision loss return to the ED Follow-up with neurology and pain management Prescriptions: New morphine 15 mg tablet 15 mg PO Q6H PRN (Reason: pain (scale score 7-10)) 3 Days Qty: 9 0RF Rx Instructions: Partial Fill upon patient request. No Action albuterol sulfate [ProAir HFA] 90 mcg/actuation HFA aerosol inhaler 2 puff inhalation Q6H PRN (Reason: shortness of breath or wheezing) 90 Days Qty: 8.5 0RF Rx Instructions: dispense which ever albuterol inhaler is covered under patients insurance (DME) cane Device See Rx Instructions .MEDSUPPLY Qty: 1 0RF Rx Instructions: quad cane loratadine 10 mg tablet 10 mg PO DAILY 90 Days Qty: 90 0RF doxycycline hyclate 100 mg capsule 100 mg PO DAILY 1 Days Qty: 1 3RF Rx Instructions: one tab 1 hr prior to dental appt fluticasone propionate 50 mcg/actuation spray,suspension 1 spray intranasal BID Qty: 48 0RF celecoxib 200 mg capsule 200 mg PO BID Qty: 60 0RF lorazepam 0.5 mg tablet 0.5 mg PO DAILY PRN (Reason: anxiety) Qty: 30 0RF tolterodine [Detrol] 2 mg tablet 2 mg PO BID 90 Days Qty: 180 0RF omeprazole 40 mg capsule,delayed release(DR/EC) 40 mg PO DAILY@0630 Qty: 90 0RF duloxetine [Cymbalta] 30 mg capsule,delayed release(DR/EC) 60 mg PO DAILY amitriptyline 25 mg tablet 25 mg PO BEDTIME cyclobenzaprine 10 mg tablet 10 mg PO BID PRN Referrals: [facility] Pain Management [Provider Group] [facility] Neuro/Sleep [Provider Group] Juliet Torres MD [Primary Care Provider] - Interventions: ED Discharge Assessment Last Done: 04/30/24 18:38 Print Language: Polish
[2024-04-30] MEDS: Morphine Sulfate Immed Release 15 MG TABLET PO (18:04)
[2024-04-30 18:30] VITALS: BP 155/80; PULSE 81; RESP 16; TEMP 36.6; O2SAT 100
[2024-04-30 18:38] VITALS: BP 155/80; PULSE 81; RESP 16; TEMP 36.6; O2SAT 100
== END 2024-04-30 18:42 | disposition home or self-care (01) ==
PROVIDERS: Emergency Provider Internal Medicine; PCP Internal Medicine
DX: G89.29 Other chronic pain (principal); M54.2 Cervicalgia
CPT/HCPCS: 99283

== ENCOUNTER 2024-05-10 11:09 | Outpatient (AMB) | payer OTHER, SELFPAY ==
--- NOTE | 2024-05-10 11:12 | A.OFFVIS_ITS ---
Vital Signs 3 05/10/24 11:16 Height 5 ft 7 in Weight 280 lb 4 oz BMI 43.9 BP 133/73 Blood Pressure Location Rt brachial Position Sitting Pulse 91 Pulse Source Pulse Oximeter Pulse Oximetry (%) 98 Oxygen Delivery Method Room Air Intake Visit Reasons: F/U Neck pain Intake Note: Pain today 5.5 Broadcast Operations Engineer Required: No Accompanied by: Self / Same As Patient Allergies codeine [Tylenol-Codeine] Allergy (Severe, Verified 05/10/24 11:17) Vomiting compazine Allergy (Severe, Verified 05/10/24 11:17) Seizure hydromorphone [From DILAUDID] Allergy (Severe, Verified 05/10/24 11:17) VOMITING,DIZZY meperidine [Demerol] Allergy (Severe, Verified 05/10/24 11:17) Rash prednisone Allergy (Severe, Verified 05/10/24 11:17) skin blistering amoxicillin [AMOXICILLIN] Allergy (Intermediate, Verified 05/10/24 11:17) HIVES, THRUSH naproxen Adverse Reaction (Intermediate, Verified 05/10/24 11:17) Family History of Kidney Disease HPI Comments Details: Patient presents today for follow up for worsening chronic neck pain. She reports pain was so debilitating that she went to ER on 04/30/24 and was treated with Morphine with partial and temporary relief. She continues to take Celebrex, Tylenol, duloxetine, and cyclobenzaprine was continued pain in her posterior neck with axial rotation and extension. She denies any significant left-sided radiculitis today. Patient had significant pain relief his right- sided diagnostic medial branch blocks and was scheduled to undergo left side diagnostic medial branch blocks. Unfortunately this was denied by her insurance and she would like to appeal this today. I will resubmit request for left- sided diagnostic medial branch blocks as patient continues to have bilateral axial cervical pain and would like to potentially undergo stimulative or ablative treatment options for more sustained neck pain relief. Pain affects her daily functioning, mood, sleep, and social interactions. Denies any recent cough, cold, infection, fever, or any other significant changes in her medical history, medications or recent hospitalizations. Past Procedures: 04/12/24: Diagnostic Right C3-C4-C5 MBB-100% pain relief for 2 weeks 02/02/24: Left parasagittal C7-T1 interlaminar LUISA-40% pain relief PRIOR: Patient is a pleasant 53 years old female with prior history of chronic cervicogenic headaches, fibromyalgia, cervical degenerative disc disease, history of concussion, arthritis, anxiety and most recently onset of vertigo, presents today for initial evaluation of chronic neck pain with left sided radiculopathy. She was referred to us by her Neurologist, Dr. Campos. Most recent cervical MRI was completed in October and noted below. Patient reports axial cervical spine pain which radiates to her left shoulder and left upper arm with associated numbness, tingling and weakness. She also reports cervicogenic headaches on the right. Patient has tried to manage her symptoms with amitriptyline, cyclobenzaprine, Celebrex, duloxetine and also has been taking oxycodone for tendon repair after left TKR. Patient reports dizziness and imbalances episodes due to vertigo. EMR review noted for ER visit in 2020 due to mechanical fall with contusions with no apparent fractures or injuries and negative radiographic study. Denies previous spine surgery but reports remote injections over 15 years ago with various results. Denies any fever, chills, shortness of breaths, gait imbalances, bladder or bowel dysfunction or saddle anesthesia. Oswestry Neck Disability Score=40 (completely disabled) Location: Neck and chronic migraines Duration: Chronic pain >5 years Characteristics of symptom or complaint: Throbbing, sharp, tingling, tiring, freezing, burning, stabbing, numbness Aggravating or associated factors: Any movement, weather changes, cold, stress Relieving factors: Rest, oxycodone, NSAIDs, muscle relaxants, heat, activity modifications Treatment: PT, chiropractor, TENS, injections 15 years ago in [facility] Medical History Neck Pain Arm numbness left Neck pain Concussion Numbness and tingling in left arm Diverticulosis Tubular adenoma Osteoarthritis of left knee Chronic GERD Morbid obesity IBS (irritable bowel syndrome) Depression Asthma Anxiety disorder Chronic back pain Neuropathy delivery delivered Cholecystitis Fibromyalgia Arthritis Surgical History H/O colonoscopy H/O knee surgery H/O oophorectomy Hx of section Family History Maternal Grandmother Ovarian ca Sister Slow to wake up after anesthesia Other Substance use disorder Social History Household Members: Spouse Housing: House Are you a primary client care representative to a significant other at home: No Do you presently have visiting nurse or other home services: No Alcohol intake: current Alcohol intake frequency: holidays/special occasions only Alcohol type: beer Comment: COUNTS CORRECT Patient Tobacco Use Status: Former Tobacco user Tobacco use type: Cigarette Years Smoked: 15 years e-Cigarette/Vaping Use: Never Used Substance Use Type: Marijuana Advance Directives Date on File: 04/13/23 service: No 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al status: unemployed 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 Alert and oriented. Mood and affect appropriate. Follows and participates in conversation appropriately. Respiratory effort is unlabored. No cough. Able to transition from sit to stand unassisted. Ambulates with bilaterally normal heel strike and toe off. Non-antalgic gait. HEENT Head: Yes normal to inspection, Yes No palpable skull fracture present, Yes normocephalic, Yes atraumatic, Yes occipital foramen tenderness (mild TTP ), No palpable skull fracture, No Temporal artery tenderness present and No periorbital ecchymosis Neck Other: Patient with decreased cervical ROM in all planes, especially with lateral rotations, left>right. Reports increased pain with cervical extension. Spurling compression test is negative. Elvey's tension test is negative. Lhermitte's test was negative. DTR intact, +2 and symmetrical, no clonus. Patient demonstrated 5/5 motor strength of bilateral upper extremities. 2 + radial pulses. Neck: Yes normal visual inspection, Yes no lymphadenopathy, Yes supple, No anterior neck swelling, No torticollis, Yes no JVD and Yes prominent dorsocervical fat pad Back/Spine/Pelvis Cervical Spine: loss of normal cervical lordosis, cervical muscular tenderness, pain with cervical ROM, No Cervical spine scars present, cervical spasm, No Cervical spine tenderness and No step off deformity Thoracic/Lumbar Spine: thoracic and lumbar spine normal to inspection, pain with thoraco-lumbar ROM, paraspinal muscle tenderness, thoraco-lumbar ROM limited, No thoracic spinal tenderness and lumbar spinal tenderness at L4 and at L5 Extrem General: Yes capillary refill normal, Yes no clubbing, cyanosis or edema and Yes no calf tenderness Results Reviewed Results Reviewed: CT CERVICAL SPINE WITHOUT CONTRAST 03/09/24 CLINICAL INFORMATION: Fall COMPARISON: Previous cervical spine x-ray 01/20/2024 FINDINGS: Bone alignment is normal. No fracture or dislocation. Mild degenerative spondylosis and degenerative disc disease at C5-C6 and C6-C7. Mild degenerative changes at the C1 dens articulation. Prevertebral soft tissues are normal. Visualized lung apices are clear. IMPRESSION: Degenerative changes. No fracture or dislocation. Assessment & Plan Assessment & Plan (1) Cervicogenic headache: Code(s): G44.86 - Cervicogenic headache Category: Medical (2) Cervical spondylosis: Code(s): M47.812 - Spondylosis without myelopathy or radiculopathy, cervical region Category: Medical (3) Muscle spasm: Code(s): M62.838 - Other muscle spasm Category: Medical Plan Will resubmit request for Left Diagnostic C3-C4-C5 MBB with local and fluoroscopy for persistent axial cervical spine pain. Patient had 100% pain relief for 2 weeks following right sided cervical MBB. Her chronic neck pain has been resistant to conservative treatments. Expectations, risks and benefits were reviewed. Patient is aware she will be contacted to schedule this procedure. Patient encouraged to continue daily physical activity, exercise, adequate hydration, good posture, well-balanced diet, consider intermittent fasting or Mediterranean diet, and weight optimization. Short script provided for Vicodin for severe neck pain only while patient is awaiting for injections. Side effects and precautions reviewed with patient. Patient has Narcan at home. All questions and concerns have been answered and patient agreed with the plan. Follow up after injections and sooner as needed. Medications: New 2 hydrocodone-acetaminophen 5-325 mg Partial Fill upon patient request. 1 tab PO Q8H 5 days PRN 14 tabs 0RF pain G44.86 - Cervicogenic headache, M47.812 - Spondylosis without myelopathy or radiculopathy, cervical region Discontinued 2 morphine Partial Fill upon patient request. Discontinued Reason: Patient no longer taking 15 mg PO Q6H 3 days PRN 9 tabs 0RF pain (scale score 7-10) Coding Level of Care Code Est Pt Level 4 (42022) Diagnoses Cervicogenic headache G44.86 Cervical spondylosis M47.812 Muscle spasm M62.838
[2024-05-10 11:16] VITALS: BP 133/73; PULSE 91; O2SAT 98; BMI 43.9
== END 2024-05-10 11:43 | disposition home or self-care (01) ==
PROVIDERS: PCP Internal Medicine; Visit Provider Nurse Practitioner Family
DX: G44.86 Cervicogenic headache (principal); M47.812 Spondylosis without myelopathy or radiculopathy, cervical region; M62.838 Other muscle spasm
CPT/HCPCS: 99214

== ENCOUNTER → 2024-05-10 11:09 | Outpatient (BNVA) | payer OTHER, SELFPAY | PROVIDERS: PCP Internal Medicine; Visit Provider Nurse Practitioner Family | DX: G44.86 Cervicogenic headache (principal); M47.812 Spondylosis without myelopathy or radiculopathy, cervical region; M62.838 Other muscle spasm | CPT/HCPCS: 99212 ==

== ENCOUNTER 2024-06-01 09:29 | Outpatient (AMB) | payer OTHER, SELFPAY ==
--- NOTE | 2024-06-01 09:33 | MHC.PC.OV ---
Vital Signs 06/01/24 09:34 BP 132/76 Blood Pressure Location Rt brachial Position Sitting Pulse 102 H Pulse Source Pulse Oximeter Pulse Oximetry (%) 97 Oxygen Delivery Method Room Air Intake Visit Reasons: anxiety Allergies codeine [Tylenol-Codeine] Allergy (Severe, Verified 06/01/24 09:34) Vomiting compazine Allergy (Severe, Verified 06/01/24 09:34) Seizure hydromorphone [From DILAUDID] Allergy (Severe, Verified 06/01/24 09:34) VOMITING,DIZZY meperidine [Demerol] Allergy (Severe, Verified 06/01/24 09:34) Rash prednisone Allergy (Severe, Verified 06/01/24 09:34) skin blistering amoxicillin [AMOXICILLIN] Allergy (Intermediate, Verified 06/01/24 09:34) HIVES, THRUSH naproxen Adverse Reaction (Intermediate, Verified 06/01/24 09:34) Family History of Kidney Disease Medication List - Last Reconciled 06/01/24 by Juliet Torres MD amitriptyline 25 mg PO BEDTIME cane quad cane celecoxib 200 mg PO BID cyclobenzaprine 10 mg PO BID PRN doxycycline hyclate 100 mg PO DAILY 1 day duloxetine (Cymbalta) 60 mg PO DAILY fluticasone propionate 50 mcg/actuation 1 spray intranasal BID hydrocodone-acetaminophen 5-325 mg 1 tab PO Q8H PRN 5 days loratadine 10 mg PO DAILY 90 days lorazepam 0.5 mg PO DAILY PRN omeprazole 40 mg PO DAILY@0630 tolterodine (Detrol) 2 mg PO BID 90 days Ventolin HFA 90 mcg/actuation (albuterol sulfate) 2 puffs inhalation Q6H PRN 90 days NS Tobacco use date assessed: 06/01/24 Dental Screening Dental Screen Date: 06/01/24 Did you have a dental visit in the last 12 months?: Yes Did you have a dental problem in the last 6 months where you did not have access to dental care?: No Was dental information given to patient?: Patient has dentist HPI anxiety HPI Details Patient is a 53-year-old female who suffers from fibromyalgia, migraine, vertigo, lumbar radiculopathy, cervical disc disease Also suffers from mild depression and anxiety, chronic GERD, stress incontinence Patient was seeing Dr. Campos for the management of fibromyalgia, migraine vertigo and lumbar radiculopathy Now she is seeing supervisor painting department Muscle relaxers that she is taking b.i.d. and Cymbalta is through PCP office Mild anemia most likely secondary to hemorrhoids, also have allergies and chronic GERD Along with urine urgency. She uses cane for ambulation secondary to chronic vertigo Left cervical radiculopathy is treated by the pain management Patient had a cortisone injection, and is in process getting further nerve blocks She is morbidly obese trying to lose weight, we will book appointment for dietary instructions Anxiety and depression: Stable patient is taking lorazepam as needed Migraine stable with amitriptyline at bedtime She is also on Celebrex for arthritic pain I see that she was also given narcotic medication by the supervisor painting department GERD is stable with omeprazole PFSH Medical History Neck Pain Arm numbness left Neck pain Concussion Numbness and tingling in left arm Diverticulosis Tubular adenoma Osteoarthritis of left knee Chronic GERD Morbid obesity IBS (irritable bowel syndrome) Depression Asthma Anxiety disorder Chronic back pain Neuropathy delivery delivered Cholecystitis Fibromyalgia Arthritis Surgical History H/O colonoscopy H/O knee surgery H/O oophorectomy Hx of section Family History Maternal Grandmother Ovarian ca Sister Slow to wake up after anesthesia Other Substance use disorder Social History Household Members: Spouse Housing: House Are you a primary adult care provider to a significant other at home: No Do you presently have visiting nurse or other home services: No Alcohol intake: current Alcohol intake frequency: holidays/special occasions only Alcohol type: beer Comment: COUNTS CORRECT Patient Tobacco Use Status: Former Tobacco user Tobacco use type: Cigarette Years Smoked: 15 years e-Cigarette/Vaping Use: Never Used Substance Use Type: Marijuana Advance Directives Date on File: 04/13/23 service: No 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al status: unemployed 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 1. Little interest or pleasure in doing things: more than half the days 2. Feeling down, depressed, or hopeless: more than half the days 3. Trouble falling or staying asleep, or sleeping too much: more than half the days 4. Feeling tired or having little energy: more than half the days 5. Poor appetite or overeating: nearly every day 6. Feeling bad about yourself - or that you are a failure or have let yourself or your family down: nearly every day 7. Trouble concentrating on things, such as reading the newspaper or watching television: more than half the days 8. Moving or speaking so slowly that other people could have noticed. Or the opposite - being so fidgety or restless that you have been moving around a lot more than usual: not at all 9. Thoughts that you would be better off or of hurting yourself in some way: not at all Total score: 16 Depression Screening Interpretation: Positive Depression Screening Follow-up: Existing condition and In treatment Depression Screening Done: Yes 78001 - PHQ-9 Billing: Yes Source: Developed by Drs. Joshua Munoz, Claudia Taylor, Kojo Frye and colleagues, with an educational jessica from [employer]. Thrive Questionnaire Date Thrive assessed: 06/01/24 I am a: Patient What is your living situation today?: I choose not to answer this question Within the past 12 months, did the food you bought not last and you didn't have the money to get more?: Sometimes True Within the past 12 months, did you worry whether your food would run out before you got money to buy more?: Sometimes True Do you have trouble paying for medicines?: Yes Do you have trouble getting transportation to medical appointments?: No Do you have trouble paying your heating and electricity bill?: Yes Do you have trouble taking care of your child, family member or friend?: I choose not to answer this question Do you have trouble with day-to-day activities such as bathing, preparing meals, shopping, managing finances, etc.?: Yes Are you interested in more education?: No Please select the resources that you would like help with: None Currently or been in a relationship where the following occur: No concerns reported THRIVE Score: 3 AUDIT C Alcohol Use Questionnaire (AUDIT-C) 1. How often do you have a drink containing alcohol?: 2-4 times a month 2. How many drinks containing alcohol do you have on a typical day when you are drinking?: 5 or 6 3. How often do you have six or more drinks on one occasion?: Never Total Score: 4 Score Reviewed/Action Taken: Yes MIKE-7 AMB Questionnaire MIKE-7 Date MIKE - 7 assessed: 06/01/24 Feeling nervous, anxious, or on edge: 1 = Several days Not being able to stop or control worryin = Several days Worrying too much about different things: 1 = Several days Trouble relaxin = Several days Being so restless that it is hard to sit still: 1 = Several days Becoming easily annoyed or irritable: 1 = Several days Feeling afraid as if something awful might happen: 3 = Nearly every day Total MIKE-7 score (0-4 normal; 5-9 mild; 10-14 moderate; 15-21 severe): 9 Source: Developed by Drs. Joshua Munoz, Claudia Taylor, Kojo Frye and colleagues, with an educational jessica from [employer]. MIKE-7 Assessment Billing MIKE-7 Assessment Tool: MIKE-7 Assessment 14334 Review of Systems Const Denies chills and Denies fever(s) ENT Denies epistaxis and Denies nasal discharge Card Denies chest pain Resp Denies chest congestion, Denies cough and Denies hemoptysis GI Denies diarrhea and Denies nausea Skin/Breast Denies rash Neuro Reports no additional complaints Psych Reports no additional complaints Endo Reports no additional complaints Physical exam (Primary Care) Vital Signs: Last Vital Signs Pulse 102 H 06/01/24 09:34 BP 132/76 06/01/24 09:34 Pulse Ox 97 06/01/24 09:34 Oxygen Delivery Method Room Air 06/01/24 09:34 Tobacco/Smoking Status: Tobacco use Status Tobacco use date assessed 06/01/24 06/01/24 09:40 Patient Tobacco Use Status Former Tobacco user 06/01/24 09:40 Tobacco use type Cigarette 06/01/24 09:40 e-Cigarette/Vaping Use Never Used 06/01/24 09:40 PHQ-9: PHQ-9 Score PHQ-9: Total score 16 06/01/24 13:37 Depression Screening Interpretation: Positive Depression Screening Follow-up: Existing condition and In treatment Thrive Assessment: Date of Thrive Assessment Date Thrive assessed 06/01/24 06/01/24 09:40 Currently or been in a relationship where the following occur: No concerns reported Const General: cooperative, comfortable and no acute distress Orientation/consciousness: patient oriented x3 HENMT Head: Yes normocephalic Eyes General: appearance normal, both eyes and all related structures Neck Neck: Yes supple Resp Effort & Inspection: normal respiratory effort, no cough and no stridor Cardio Rhythm: regular rhythm Heart sounds: S1 normal heart sound present and S2 normal heart sound present Skin General skin exam: turgor normal Neuro General: patient oriented x3, tone normal and moves all extremities Extrem Right lower extremity: no edema Left lower extremity: no edema Assessment and Plan Assessment & Plan (1) Fibromyalgia: Code(s): M79.7 - Fibromyalgia (2) Major depression, recurrent: Code(s): F33.9 - Major depressive disorder, recurrent, unspecified Qualifiers: Active/Remission status: in full remission Qualified Code(s): F33.42 - Major depressive disorder, recurrent, in full remission (3) Morbid obesity due to excess calories: Code(s): E66.01 - Morbid (severe) obesity due to excess calories (4) Migraine headache: Code(s): G43.909 - Migraine, unspecified, not intractable, without status migrainosus Qualifiers: Intractability: intractable Migraine type: unspecified Status migrainosus presence: without status migrainosus Qualified Code(s): G43.919 - Migraine, unspecified, intractable, without status migrainosus (5) Chronic GERD: Code(s): K21.9 - Gastro-esophageal reflux disease without esophagitis (6) Stress incontinence: Code(s): N39.3 - Stress incontinence (female) (male) (7) Radiculitis of left cervical region: Code(s): M54.12 - Radiculopathy, cervical region (8) Overactive bladder: Code(s): N32.81 - Overactive bladder (9) Neuropathy: Code(s): G62.9 - Polyneuropathy, unspecified (10) Anemia: Code(s): D64.9 - Anemia, unspecified Qualifiers: Anemia type: iron deficiency Iron deficiency anemia type: other iron deficiency Qualified Code(s): D50.8 - Other iron deficiency anemias (11) Environmental allergies: Code(s): Z91.09 - Other allergy status, other than to drugs and biological substances (12) Instability of left knee joint: Code(s): M25.362 - Other instability, left knee (13) Use of cane as ambulatory aid: Code(s): Z99.89 - Dependence on other enabling machines and devices (14) Muscle spasm: Code(s): M62.838 - Other muscle spasm Plan Patient is a 53-year-old female who suffers from fibromyalgia, migraine, vertigo, lumbar radiculopathy, cervical disc disease Also suffers from mild depression and anxiety, chronic GERD, stress incontinence Patient was seeing Dr. Campos for the management of fibromyalgia, migraine vertigo and lumbar radiculopathy Now she is seeing supervisor painting department Muscle relaxers that she is taking b.i.d. and Cymbalta is through PCP office Mild anemia most likely secondary to hemorrhoids, also have allergies and chronic GERD Along with urine urgency. She uses cane for ambulation secondary to chronic vertigo Left cervical radiculopathy is treated by the pain management Patient had a cortisone injection, and is in process getting further nerve blocks She is morbidly obese trying to lose weight, we will book appointment for dietary instructions Anxiety and depression: Stable patient is taking lorazepam as needed Migraine stable with amitriptyline at bedtime She is also on Celebrex for arthritic pain I see that she was also given narcotic medication by the supervisor painting department GERD is stable with omeprazole 45 spent care of this patient, going over the chart, [id number] and coordination of care Orders: Orders Comprehensive Met. Panel Today E66.09 - Other obesity due to excess calories, M54.16 - Radiculopathy, lumbar region, M79.7 - Fibromyalgia, Z91.09 - Other allergy status, other than to drugs and biological substances LDL Cholesterol Direct Today E66.09 - Other obesity due to excess calories, M54.16 - Radiculopathy, lumbar region, M79.7 - Fibromyalgia, Z91.09 - Other allergy status, other than to drugs and biological substances Complete Blood Count Auto Diff Today E66.09 - Other obesity due to excess calories, M54.16 - Radiculopathy, lumbar region, M79.7 - Fibromyalgia, Z91.09 - Other allergy status, other than to drugs and biological substances TSH reflex Free T4 Today E66.09 - Other obesity due to excess calories, M54.16 - Radiculopathy, lumbar region, M79.7 - Fibromyalgia, Z91.09 - Other allergy status, other than to drugs and biological substances Coding Level of Care Code Est Pt Level 5 (60371) Complex EM visit Add On G2211 Diagnoses Fibromyalgia M79.7 Recurrent major depressive disorder, in full remission F33.42 Active/Remission status: in full remission Morbid obesity due to excess calories E66.01 Intractable migraine without status migrainosus, unspecified migraine type G43.919 Intractability: intractable Migraine type: unspecified Status migrainosus presence: without status migrainosus Chronic GERD K21.9 Stress incontinence N39.3 Radiculitis of left cervical region M54.12 Overactive bladder N32.81 Neuropathy G62.9 Other iron deficiency anemia D50.8 Anemia type: iron deficiency Iron deficiency anemia type: other iron deficiency Environmental allergies Z91.09 Instability of left knee joint M25.362 Use of cane as ambulatory aid Z99.89 Muscle spasm M62.838 Additional Codes MIKE-7 Assessment Billing - MIKE-7 Assessment Tool: MIKE-7 Assessment 23539 ([id number])
[2024-06-01 09:34] VITALS: BP 132/76; PULSE 102; O2SAT 97
== END 2024-06-01 09:55 | disposition home or self-care (01) ==
PROVIDERS: PCP Internal Medicine; Visit Provider Internal Medicine
DX: G43.919 Migraine, unspecified, intractable, without status migrainosus (principal); E66.01 Morbid (severe) obesity due to excess calories; F33.42 Major depressive disorder, recurrent, in full remission; M79.7 Fibromyalgia; K21.9 Gastro-esophageal reflux disease without esophagitis; N39.3 Stress incontinence (female) (male); M54.12 Radiculopathy, cervical region; N32.81 Overactive bladder; G62.9 Polyneuropathy, unspecified; D50.8 Other iron deficiency anemias; Z91.09 Other allergy status, other than to drugs and biological substances; M25.362 Other instability, left knee

== ENCOUNTER → 2024-06-01 09:29 | Outpatient (BNVA) | payer OTHER, SELFPAY | PROVIDERS: PCP Internal Medicine; Visit Provider Internal Medicine | DX: M79.7 Fibromyalgia (principal); F33.42 Major depressive disorder, recurrent, in full remission; E66.01 Morbid (severe) obesity due to excess calories; G43.919 Migraine, unspecified, intractable, without status migrainosus; K21.9 Gastro-esophageal reflux disease without esophagitis; N39.3 Stress incontinence (female) (male); M54.12 Radiculopathy, cervical region; N32.81 Overactive bladder; G62.9 Polyneuropathy, unspecified; D50.8 Other iron deficiency anemias; M25.561 Pain in right knee; M62.838 Other muscle spasm; Z91.09 Other allergy status, other than to drugs and biological substances; Z99.89 Dependence on other enabling machines and devices | CPT/HCPCS: 96127; 99212 ==

== ENCOUNTER 2024-06-01 09:56 | Outpatient (REF) | payer OTHER, SELFPAY ==
[2024-06-01 13:31] LABS: MANUAL DIFF FLAG NO
[2024-06-01 13:36] LABS: Basophils Absolute Auto 0.1 X10*3/uL (0.0-0.2); Basophils Percent Auto 1.1 % (0-2); Eosinophils Absolute Auto 0.7 X10*3/uL (0.0-0.4); Eosinophils Percent Auto 10.2 % (0-4); Hematocrit 39.3 % (37.0-47.0); Imm Gran Abs Auto 0.01 X10*3/uL (0.00-0.03); Imm Gran Pct Auto 0.2 % (0.0-0.4); Lymphocytes Absolute Auto 1.5 X10*3/uL (1.2-4.9); Lymphocytes Percent Auto 22.4 % (20-40); Mean Corpuscular HGB Conc 33.1 g/dl (31.0-35.0); Mean Corpuscular Hemoglobin 30.7 pg (27.0-33.0); Mean Corpuscular Volume 92.9 fL (80.0-98.0); Mean Platelet Volume 9.9 fL (9.4-12.3); Monocytes Absolute Auto 0.4 X10*3/uL (0.1-1.2); Monocytes Percent Auto 6.4 % (2-11); Neutrophils Absolute Auto 3.9 x10*3/uL (2.0-8.3); Neutrophils Percent Auto 59.7 % (45-73); Platelet Count 353 X10*3/uL (160-400); Red Blood Count 4.23 X10*6/uL (4.20-5.50); Red Cell Distribution Width 13.4 % (11.0-16.0); White Blood Count 6.6 X10*3/uL (4.8-10.8)
[2024-06-01 14:10] LABS: Alanine Aminotransferase 13 U/L (0-31); Alkaline Phosphatase 84 U/L (39-117); Anion Gap 11 (12-20); Aspartate Amino Transferase 16 U/L (5-31); Bilirubin Total 0.4 mg/dL (0.0-1.0); Blood Urea Nitrogen 20 mg/dL (9-16); Calcium 9.8 mg/dL (8.4-10.2); Carbon Dioxide 27 mmol/L (22-29); Chloride 106 mmol/L (96-108); Estimated Glomerular Filt Rate 49; Glucose Random 71 mg/dL (60-115); Potassium 3.7 mmol/L (3.3-5.1); Sodium 140 mmol/L (135-145); Total Protein 7.6 g/dL (6.5-8.0)
[2024-06-01 14:11] LABS: TSH reflex Free T4 2.23 uIU/mL (0.32-4.0)
[2024-06-03 08:43] LABS: LDL Cholesterol Direct 177 mg/dL (<100)
== END 2024-06-01 09:57 | disposition home or self-care (01) ==
LOC: HO.HMGCLDS 09:56
PROVIDERS: PCP Internal Medicine; Visit Provider Internal Medicine
DX: M79.7 Fibromyalgia (principal); M54.16 Radiculopathy, lumbar region; Z91.09 Other allergy status, other than to drugs and biological substances; E66.09 Other obesity due to excess calories
CPT/HCPCS: 36415; 80053; 83721; 84443; 85025

== ENCOUNTER 2024-07-17 06:13 | Outpatient (REF) | payer OTHER, SELFPAY | END 2024-07-17 06:14 | disposition home or self-care (01) | LOC: CF 06:13 | PROVIDERS: Visit Provider Anesthesiology | DX: M47.812 Spondylosis without myelopathy or radiculopathy, cervical region (principal); M62.838 Other muscle spasm; G44.86 Cervicogenic headache | CPT/HCPCS: 64490; 64491; J2003; J2795; Q9967 ==

== ENCOUNTER 2024-07-17 09:31 | Outpatient (AMB) | payer OTHER, SELFPAY ==
--- NOTE | 2024-07-17 09:31 | A.OFFVIS_ITS ---
Vital Signs 07/17/24 10:32 07/17/24 10:32 Height 5 ft 7 in 5 ft 7 in Weight 280 lb 280 lb BMI 43.8 43.8 BP 142/70 H 140/66 H Blood Pressure Location Lt brachial Lt brachial Position Sitting Sitting Respiration 17 16 Pulse 101 H 87 Pulse Source Pulse Oximeter Pulse Oximeter Pulse Oximetry (%) 99 98 Oxygen Delivery Method Room Air Room Air Comment pre-op post-op Intake Visit Reasons: LEFT DIAGNOSTIC C3, C4, C5 MBB Allergies codeine [Tylenol-Codeine] Allergy (Severe, Verified 07/17/24 10:33) Vomiting compazine Allergy (Severe, Verified 07/17/24 10:33) Seizure hydromorphone [From DILAUDID] Allergy (Severe, Verified 07/17/24 10:33) VOMITING,DIZZY meperidine [Demerol] Allergy (Severe, Verified 07/17/24 10:33) Rash prednisone Allergy (Severe, Verified 07/17/24 10:33) skin blistering amoxicillin [AMOXICILLIN] Allergy (Intermediate, Verified 07/17/24 10:33) HIVES, THRUSH naproxen Adverse Reaction (Intermediate, Verified 07/17/24 10:33) [facility] History of Kidney Disease [facility] Medical History Neck Pain Arm numbness left Neck pain Concussion Numbness and tingling in left arm Diverticulosis Tubular adenoma Osteoarthritis of left knee Chronic GERD Morbid obesity IBS (irritable bowel syndrome) Depression Asthma Anxiety disorder Chronic back pain Neuropathy delivery delivered Cholecystitis Fibromyalgia Arthritis Surgical History H/O colonoscopy H/O knee surgery H/O oophorectomy Hx of section Family History Maternal Grandmother Ovarian ca Sister Slow to wake up after anesthesia Other Substance use disorder Social History Household Members: Spouse Housing: House Are you a primary manager critical care unit to a significant other at home: No Do you presently have visiting nurse or other home services: No Alcohol intake: current Alcohol intake frequency: holidays/special occasions only Alcohol type: beer Comment: COUNTS CORRECT Patient Tobacco Use Status: Former Tobacco user Tobacco use type: Cigarette Years Smoked: 15 years e-Cigarette/Vaping Use: Never Used Substance Use Type: Marijuana Advance Directives Date on File: 04/13/23 service: No 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al status: unemployed 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 Cognitive needs: No Hearing needs: No Vision needs: No Female Reproductive History Menstrual Age of Menarche: 12 Physical Exam Vital Signs: Last Vital Signs Pulse 87 07/17/24 10:32 Resp 16 07/17/24 10:32 BP 140/66 H 07/17/24 10:32 Pulse Ox 98 07/17/24 10:32 Oxygen Delivery Method Room Air 07/17/24 10:32 BMI result Body Mass Index 43.8 Assessment & Plan Assessment & Plan (1) Cervicogenic headache: Code(s): G44.86 - Cervicogenic headache Category: Medical (2) Cervical spondylosis: Code(s): M47.812 - Spondylosis without myelopathy or radiculopathy, cervical region Category: Medical (3) Muscle spasm: Code(s): M62.838 - Other muscle spasm Category: Medical Plan Left Diagnostic C3-C4-C5 MBB. Informed consent was obtained before the procedure were risks benefits and alternatives were carefully explained to the patient. All questions were answered to patient's satisfaction. Patient came to the operating room and positioned prone on the operating table. The posterior neck and upper back were prepped with ChloraPrep and draped with sterile utility towels. C-arm was brought over the operating field and sq picture of patient's cervical spine was demonstrated on the screen. Lateral masses of C3-C4 and C5 vertebras were chosen as the target of the injections. The waistline of all the lateral masses were chosen as the end point of the needle advancement. After that projection of the point of interest to the skin was injected with small amount of lidocaine 2% mixed with Decadron 0.5% one-to-one. After that 3 22 gauge draining 1/2 inch long spinal needles were driven to were the point of interest in tunnel vision fashion. When needle gently contacted the bones injection of the contrast was performed. At C5 positioned contrast demonstrated intravascular spread. The needle was repositioned. At the rest of the positions there were no intravascular spread. After that injection of the diagnostic medication comprising of ropivacaine 0.5% no more than 1 mL was injected into each needle positioned. Upon completion of the injections the needles were withdrawn and sterile band that was applied. The patient tolerated procedure well although she was slightly dizzy in the recovery room. However she recovered quickly and went home without immediate complications. Orders: Orders FL guidance in treatment room Today M47.812 - Spondylosis without myelopathy or radiculopathy, cervical region Coding Level of Care Code Procedure Only Diagnoses Cervicogenic headache G44.86 Cervical spondylosis M47.812 Muscle spasm M62.838
[2024-07-17 10:32] VITALS: BP 140/66; BP 142/70; PULSE 101; PULSE 87; RESP 16; RESP 17; O2SAT 98; O2SAT 99; BMI 43.8
== END 2024-07-17 10:30 | disposition home or self-care (01) ==
LOC: HO.PMCPRC 09:31
PROVIDERS: PCP Internal Medicine; Visit Provider Anesthesiology
DX: G44.86 Cervicogenic headache (principal); M47.812 Spondylosis without myelopathy or radiculopathy, cervical region; M62.838 Other muscle spasm
CPT/HCPCS: 64490; 64491

== ENCOUNTER 2024-07-24 09:13 | Outpatient (AMB) | payer OTHER, SELFPAY ==
--- NOTE | 2024-07-24 09:24 | A.OFFVIS_ITS ---
Vital Signs 3 07/24/24 09:27 Height 5 ft 7 in Weight 269 lb BMI 42.1 BP 151/75 H Blood Pressure Location Lt brachial Position Sitting Pulse 89 Pulse Source Pulse Oximeter Pulse Oximetry (%) 98 Oxygen Delivery Method Room Air Intake Visit Reasons: LEFT DIAGNOSTIC C3, C4, C5 MBB Intake Note: Pain today 03/21 Shot Polisher And Inspector Required: No Accompanied by: Self / Same As Patient Allergies codeine [Tylenol-Codeine] Allergy (Severe, Verified 07/24/24 09:27) Vomiting compazine Allergy (Severe, Verified 07/24/24 09:27) Seizure hydromorphone [From DILAUDID] Allergy (Severe, Verified 07/24/24 09:27) VOMITING,DIZZY meperidine [Demerol] Allergy (Severe, Verified 07/24/24 09:27) Rash prednisone Allergy (Severe, Verified 07/24/24 09:27) skin blistering amoxicillin [AMOXICILLIN] Allergy (Intermediate, Verified 07/24/24 09:27) HIVES, THRUSH naproxen Adverse Reaction (Intermediate, Verified 07/24/24 09:27) Family History of Kidney Disease HPI Comments Details: Patient presents today to assess response to Left Diagnostic C3-C4-C5 MBB on 07/17/[address] Rodriguez. Patient reports 70-75 % pain relief for 6 hours since procedure with partial improvement in her neck pain, range of motion, ADLs, and sleep. She continues to endorse bilateral axial neck symptoms, worse with extension and lateral rotations. Patient is interested to repeat diagnostic cervical medial branch block injections in order to establish reproducible response to the treatment for potential RFA procedure. We also reviewed therapeutic injections and Sprint PNS trial as back up options. Denies any recent cough, cold, infection, fever, or any other significant changes in her medical history, medications or recent hospitalizations. Past Procedures: 07/17/24: Diagnostic Left C3-C4-C5 MBB -70-75% pain relief for 6 hours 04/12/24: Diagnostic Right C3-C4-C5 MBB-100% pain relief for 2 weeks 02/02/24: Left parasagittal C7-T1 interlaminar LUISA-40% pain relief PRIOR: Patient is a pleasant 53 years old female with prior history of chronic cervicogenic headaches, fibromyalgia, cervical degenerative disc disease, history of concussion, arthritis, anxiety and most recently onset of vertigo, presents today for initial evaluation of chronic neck pain with left sided radiculopathy. She was referred to us by her Neurologist, Dr. Campos. Most recent cervical MRI was completed in October and noted below. Patient reports axial cervical spine pain which radiates to her left shoulder and left upper arm with associated numbness, tingling and weakness. She also reports cervicogenic headaches on the right. Patient has tried to manage her symptoms with amitriptyline, cyclobenzaprine, Celebrex, duloxetine and also has been taking oxycodone for tendon repair after left TKR. Patient reports dizziness and imbalances episodes due to vertigo. EMR review noted for ER visit in 2020 due to mechanical fall with contusions with no apparent fractures or injuries and negative radiographic study. Denies previous spine surgery but reports remote injections over 15 years ago with various results. Denies any fever, chills, shortness of breaths, gait imbalances, bladder or bowel dysfunction or saddle anesthesia. Oswestry Neck Disability Score=40 (completely disabled) Location: Neck and chronic migraines Duration: Chronic pain >5 years Characteristics of symptom or complaint: Throbbing, sharp, tingling, tiring, freezing, burning, stabbing, numbness Aggravating or associated factors: Any movement, weather changes, cold, stress Relieving factors: Rest, oxycodone, NSAIDs, muscle relaxants, heat, activity modifications Treatment: PT, chiropractor, TENS, injections 15 years ago in [facility] Medical History Neck Pain Arm numbness left Neck pain Concussion Numbness and tingling in left arm Diverticulosis Tubular adenoma Osteoarthritis of left knee Chronic GERD Morbid obesity IBS (irritable bowel syndrome) Depression Asthma Anxiety disorder Chronic back pain Neuropathy delivery delivered Cholecystitis Fibromyalgia Arthritis Surgical History H/O colonoscopy H/O knee surgery H/O oophorectomy Hx of section Family History Maternal Grandmother Ovarian ca Sister Slow to wake up after anesthesia Other Substance use disorder Social History Household Members: Spouse Housing: House Are you a primary rn long term care to a significant other at home: No Do you presently have visiting nurse or other home services: No Alcohol intake: current Alcohol intake frequency: holidays/special occasions only Alcohol type: beer Comment: COUNTS CORRECT Patient Tobacco Use Status: Former Tobacco user Tobacco use type: Cigarette Years Smoked: 15 years e-Cigarette/Vaping Use: Never Used Substance Use Type: Marijuana Advance Directives Date on File: 04/13/23 service: No 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al status: unemployed 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 Alert and oriented. Mood and affect appropriate. Follows and participates in conversation appropriately. Respiratory effort is unlabored. No cough. Able to transition from sit to stand unassisted. Ambulates with bilaterally normal heel strike and toe off. Non-antalgic gait. Neck Other: Limited cervical ROM in all planes, especially with lateral rotations, left>right. Reports increased pain with cervical extension. Spurling compression test is negative. Elvey's tension test is negative. Lhermitte's test was negative. DTR intact, +2 and symmetrical, no clonus. Patient demonstrated 5/5 motor strength of bilateral upper extremities. 2 + radial pulses. Neck: Yes normal visual inspection, Yes no lymphadenopathy, Yes supple, No anterior neck swelling, Yes no JVD and Yes prominent dorsocervical fat pad Back/Spine/Pelvis Cervical Spine: loss of normal cervical lordosis, cervical muscular tenderness, pain with cervical ROM, No Cervical spine scars present, No Cervical spine tenderness and No step off deformity Thoracic/Lumbar Spine: thoracic and lumbar spine normal to inspection, pain with thoraco-lumbar ROM, paraspinal muscle tenderness, thoraco-lumbar ROM limited, No thoracic spinal tenderness and lumbar spinal tenderness at L4 and at L5 Results Reviewed Results Reviewed: CT CERVICAL SPINE WITHOUT CONTRAST 03/09/24 CLINICAL INFORMATION: Fall COMPARISON: Previous cervical spine x-ray 01/20/2024 FINDINGS: Bone alignment is normal. No fracture or dislocation. Mild degenerative spondylosis and degenerative disc disease at C5-C6 and C6-C7. Mild degenerative changes at the C1 dens articulation. Prevertebral soft tissues are normal. Visualized lung apices are clear. IMPRESSION: Degenerative changes. No fracture or dislocation. Assessment & Plan Assessment & Plan (1) Cervicogenic headache: Code(s): G44.86 - Cervicogenic headache Category: Medical (2) Cervical spondylosis: Code(s): M47.812 - Spondylosis without myelopathy or radiculopathy, cervical region Category: Medical (3) Muscle spasm: Code(s): M62.838 - Other muscle spasm Category: Medical Plan Schedule repeat Bilateral Diagnostic C3-C4-C5 MBB with local and fluoroscopy for persistent axial cervical spine pain for potential cervical medial branch RFA. Patient had 100% pain relief for 2 weeks for right side and 70-75% for 6 hours for left side following initial diagnostic cervical MBB. Her chronic neck pain has been resistant to conservative treatments. Expectations, risks and benefits were reviewed. Patient is aware she will be contacted to schedule this procedure. Patient encouraged to continue daily physical activity, exercise, adequate hydration, good posture, well-balanced diet, consider intermittent fasting or Mediterranean diet, and weight optimization. All questions and concerns have been answered and patient agreed with the plan. Follow up after injections and sooner as needed. Coding Level of Care Code Est Pt Level 3 (96434) Complex EM visit Add On G2211 Diagnoses Cervicogenic headache G44.86 Cervical spondylosis M47.812 Muscle spasm M62.838
[2024-07-24 09:27] VITALS: BP 151/75; PULSE 89; O2SAT 98; BMI 42.1
== END 2024-07-24 09:35 | disposition home or self-care (01) ==
PROVIDERS: PCP Internal Medicine; Visit Provider Nurse Practitioner Family
DX: G44.86 Cervicogenic headache (principal); M47.812 Spondylosis without myelopathy or radiculopathy, cervical region; M62.838 Other muscle spasm
CPT/HCPCS: 99213; G2211

== ENCOUNTER → 2024-07-24 09:13 | Outpatient (BNVA) | payer OTHER, SELFPAY | PROVIDERS: PCP Internal Medicine; Visit Provider Nurse Practitioner Family | DX: M47.812 Spondylosis without myelopathy or radiculopathy, cervical region (principal); G44.86 Cervicogenic headache; M62.838 Other muscle spasm | CPT/HCPCS: 99212 ==

== ENCOUNTER → 2024-08-02 12:18 | Outpatient (BNVA) | payer OTHER, SELFPAY | PROVIDERS: PCP Internal Medicine ==

== ENCOUNTER 2024-08-16 08:48 | Outpatient (AMB) | payer OTHER, SELFPAY ==
--- NOTE | 2024-08-16 09:03 | MHC.PC.OV ---
Intake Visit Reasons: Discuss Sleep Study Allergies codeine [Tylenol-Codeine] Allergy (Severe, Verified 08/16/24 09:03) Vomiting compazine Allergy (Severe, Verified 08/16/24 09:03) Seizure hydromorphone [From DILAUDID] Allergy (Severe, Verified 08/16/24 09:03) VOMITING,DIZZY meperidine [Demerol] Allergy (Severe, Verified 08/16/24 09:03) Rash prednisone Allergy (Severe, Verified 08/16/24 09:03) skin blistering amoxicillin [AMOXICILLIN] Allergy (Intermediate, Verified 08/16/24 09:03) HIVES, THRUSH naproxen Adverse Reaction (Intermediate, Verified 08/16/24 09:03) Family History of Kidney Disease Tobacco use date assessed: 08/16/24 Dental Screening Dental Screen Date: 08/16/24 Did you have a dental visit in the last 12 months?: Yes Did you have a dental problem in the last 6 months where you did not have access to dental care?: No Was dental information given to patient?: Patient has dentist HPI Discuss Sleep Study HPI Details Chief Complaint The patient reports difficulty with sleep, citing frequent awakenings and feeling tired during the day. Assessment and Plan 53-year-old female with a history of anxiety and chronic neck pain, presenting with sleep disturbances and insomnia. The patient reports difficulty initiating and maintaining sleep, with frequent awakenings throughout the night often due to discomfort or needing to reposition. She denies snoring or gasping for air, although she wakes up with a dry mouth, suggesting probable mouth breathing. Allergic rhinitis and occasional nasal congestion are present but not persistent every night. Current medication regime includes amitriptyline, cyclobenzaprine, lorazepam (as needed due to limited supply), loratadine, and a nasal spray for allergies. Potential obstructive sleep apnea is considered due to reported symptoms and dry mouth, leading to a decision to conduct a sleep study. Anxiety may also be contributing to the disturbed sleep pattern. 1. Anxiety She would like continue lorazepam as needed for anxiety, with a new prescription provided. Psychological factors of anxiety are likely contributing to sleep disruption, indicating the need for ongoing monitoring and possibly adjusting anxiolytic treatment depending on future evaluations. 2. Insomnia Ordered a sleep study to evaluate for obstructive sleep apnea, given the patient's symptoms of awakening with a dry mouth and reported fatigue. The study will involve home-based equipment to assess the quality of sleep. Continuing current medications amitriptyline and cyclobenzaprine, and exploring the need for better sleep hygiene practices upon results of the sleep study. 3. Allergic Rhinitis Continued use of nasal spray and loratadine is warranted, addressing intermittent nasal congestion. Adjustments may be required depending on future evaluation of nasal symptoms contributing to sleep issues. 4. Chronic Neck Pain Due to denied injections by pain management, prescribed Percocet for temporary use at bedtime to alleviate neck pain contributing to sleep disturbances. Emphasized this is not a long-term solution, pending pain management re-evaluation. Problem List - Insomnia - Anxiety - Allergic Rhinitis - Chronic Neck Pain Patient Instructions - Undergo the sleep study as scheduled to assess for sleep apnea. - Continue current medications: amitriptyline, cyclobenzaprine, lorazepam (as needed), loratadine, and nasal spray. - Use Percocet sparingly and only as prescribed for neck pain relief until further management strategies are decided. - Maintain awareness of sleep hygiene and anxiety triggers, adjusting lifestyle factors to improve sleep quality. - Attend follow-up appointments to review sleep study results and adjust treatment plans accordingly. [facility] Medical History Neck Pain Arm numbness left Neck pain Concussion Numbness and tingling in left arm Diverticulosis Tubular adenoma Osteoarthritis of left knee Chronic GERD Morbid obesity IBS (irritable bowel syndrome) Depression Asthma Anxiety disorder Chronic back pain Neuropathy delivery delivered Cholecystitis Fibromyalgia Arthritis Surgical History H/O colonoscopy H/O knee surgery H/O oophorectomy Hx of section Family History Maternal Grandmother Ovarian ca Sister Slow to wake up after anesthesia Other Substance use disorder Social History Household Members: Spouse Housing: House Are you a primary healthcare administration intern to a significant other at home: No Do you presently have visiting nurse or other home services: No Alcohol intake: current Alcohol intake frequency: holidays/special occasions only Alcohol type: beer Comment: COUNTS CORRECT Patient Tobacco Use Status: Former Tobacco user Tobacco use type: Cigarette Years Smoked: 15 years e-Cigarette/Vaping Use: Never Used Substance Use Type: Marijuana Advance Directives Date on File: 04/13/23 service: No 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al status: unemployed 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 Cognitive needs: No Hearing needs: No Vision needs: No Female Reproductive History Menstrual Age of Menarche: 12 Questionnaire Thrive Questionnaire Date Thrive assessed: 08/16/24 I am a: Patient What is your living situation today?: I choose not to answer this question Within the past 12 months, did the food you bought not last and you didn't have the money to get more?: Sometimes True Within the past 12 months, did you worry whether your food would run out before you got money to buy more?: Sometimes True Do you have trouble paying for medicines?: Yes Do you have trouble getting transportation to medical appointments?: No Do you have trouble paying your heating and electricity bill?: Yes Do you have trouble taking care of your child, family member or friend?: I choose not to answer this question Do you have trouble with day-to-day activities such as bathing, preparing meals, shopping, managing finances, etc.?: Yes Are you currently unemployed and looking for a job?: No Are you interested in more education?: No Please select the resources that you would like help with: None Currently or been in a relationship where the following occur: No concerns reported THRIVE Score: 3 AUDIT C Alcohol Use Questionnaire (AUDIT-C) 1. How often do you have a drink containing alcohol?: 2-4 times a month 2. How many drinks containing alcohol do you have on a typical day when you are drinking?: 5 or 6 3. How often do you have six or more drinks on one occasion?: Never Total Score: 4 Score Reviewed/Action Taken: Yes MIKE-7 AMB Questionnaire MIKE-7 Date MIKE - 7 assessed: 06/01/24 Source: Developed by Drs. Joshua Munoz, Claudia Taylor, Kojo Frye and colleagues, with an educational jessica from [employer]. Review of Systems Const Denies chills and Denies fever(s) ENT Denies epistaxis and Denies nasal discharge Card Denies chest pain Resp Denies chest congestion, Denies cough and Denies hemoptysis GI Denies diarrhea and Denies nausea Skin/Breast Denies rash Neuro Reports no additional complaints Psych Reports no additional complaints Endo Reports no additional complaints Physical exam (Primary Care) Tobacco/Smoking Status: Tobacco use Status Tobacco use date assessed 08/16/24 08/16/24 09:07 Patient Tobacco Use Status Former Tobacco user 08/16/24 09:07 Tobacco use type Cigarette 08/16/24 09:07 e-Cigarette/Vaping Use Never Used 08/16/24 09:07 Thrive Assessment: Date of Thrive Assessment Date Thrive assessed 08/16/24 08/16/24 09:07 Currently or been in a relationship where the following occur: No concerns reported Telehealth Telehealth Telehealth Platform: [employer] Location of provider rendering services: practice address Location of patient: address on file Patient Identification confirmed using: Name, : Yes Telehealth method: voice only Patient verbally consented to treatment: Yes Patient verbally consented to billing insurance company: Yes Patient informed of any privacy concerns related to visit: Yes Minutes spent on Phone/Video with Pt.: 16 Coding Level of Care Code Tele Est Pt Level 3 (01080) Complex EM visit Add On G2211 Diagnoses Sleep disorder G47.9 Daytime somnolence R40.0 Anxiety, generalized F41.1 Cervical spondylosis M47.812 Assessment & Plan Assessment & Plan (1) Sleep disorder: Code(s): G47.9 - Sleep disorder, unspecified Category: Medical (2) Daytime somnolence: Code(s): R40.0 - Somnolence Category: Medical (3) Anxiety, generalized: Code(s): F41.1 - Generalized anxiety disorder Category: Medical (4) Cervical spondylosis: Code(s): M47.812 - Spondylosis without myelopathy or radiculopathy, cervical region Category: Medical Plan Chief Complaint The patient reports difficulty with sleep, citing frequent awakenings and feeling tired during the day. Assessment and Plan 53-year-old female with a history of anxiety and chronic neck pain, presenting with sleep disturbances and insomnia. The patient reports difficulty initiating and maintaining sleep, with frequent awakenings throughout the night often due to discomfort or needing to reposition. She denies snoring or gasping for air, although she wakes up with a dry mouth, suggesting probable mouth breathing. Allergic rhinitis and occasional nasal congestion are present but not persistent every night. Current medication regime includes amitriptyline, cyclobenzaprine, lorazepam (as needed due to limited supply), loratadine, and a nasal spray for allergies. Potential obstructive sleep apnea is considered due to reported symptoms and dry mouth, leading to a decision to conduct a sleep study. Anxiety may also be contributing to the disturbed sleep pattern. 1. Anxiety She would like continue lorazepam as needed for anxiety, with a new prescription provided. Psychological factors of anxiety are likely contributing to sleep disruption, indicating the need for ongoing monitoring and possibly adjusting anxiolytic treatment depending on future evaluations. 2. Insomnia Ordered a sleep study to evaluate for obstructive sleep apnea, given the patient's symptoms of awakening with a dry mouth and reported fatigue. The study will involve home-based equipment to assess the quality of sleep. Continuing current medications amitriptyline and cyclobenzaprine, and exploring the need for better sleep hygiene practices upon results of the sleep study. 3. Allergic Rhinitis Continued use of nasal spray and loratadine is warranted, addressing intermittent nasal congestion. Adjustments may be required depending on future evaluation of nasal symptoms contributing to sleep issues. 4. Chronic Neck Pain Due to denied injections by pain management, prescribed Percocet for temporary use at bedtime to alleviate neck pain contributing to sleep disturbances. Emphasized this is not a long-term solution, pending pain management re-evaluation. Problem List - Insomnia - Anxiety - Allergic Rhinitis - Chronic Neck Pain Patient Instructions - Undergo the sleep study as scheduled to assess for sleep apnea. - Continue current medications: amitriptyline, cyclobenzaprine, lorazepam (as needed), loratadine, and nasal spray. - Use Percocet sparingly and only as prescribed for neck pain relief until further management strategies are decided. - Maintain awareness of sleep hygiene and anxiety triggers, adjusting lifestyle factors to improve sleep quality. - Attend follow-up appointments to review sleep study results and adjust treatment plans accordingly. Orders: Orders RT home sleep study 08/16/24 F41.1 - Generalized anxiety disorder, G47.9 - Sleep disorder, unspecified, M47.812 - Spondylosis without myelopathy or radiculopathy, cervical region, R40.0 - Somnolence Medications: Changed From hydrocodone-acetaminophen 5-325 mg Partial Fill upon patient request. 1 tab PO Q8H 5 days PRN 14 tabs 0RF pain G44.86 - Cervicogenic headache, M47.812 - Spondylosis without myelopathy or radiculopathy, cervical region To hydrocodone-acetaminophen 5-325 mg Partial Fill upon patient request. 1 tab PO .qhs PRN 30 tabs 0RF pain 30 days G44.86 - Cervicogenic headache, M47.812 - Spondylosis without myelopathy or radiculopathy, cervical region Refilled lorazepam 0.5 mg PO DAILY PRN 30 tabs 0RF anxiety
== END 2024-08-16 11:26 | disposition home or self-care (01) ==
LOC: HO.HMCC 08:48
PROVIDERS: PCP Internal Medicine; Visit Provider Internal Medicine
DX: G47.9 Sleep disorder, unspecified (principal); R40.0 Somnolence; F41.1 Generalized anxiety disorder; M47.812 Spondylosis without myelopathy or radiculopathy, cervical region

== ENCOUNTER 2024-08-22 15:24 | Outpatient (AMB) | payer OTHER, SELFPAY ==
--- NOTE | 2024-08-22 15:36 | MHC.OFFVIS ---
Vital Signs 08/22/24 15:37 Height 5 ft 7 in Weight 282 lb 10.122 oz BMI 44.3 BP 128/78 Blood Pressure Location Lt brachial Position Sitting Pulse 76 Pulse Source Pulse Oximeter Pulse Oximetry (%) 99 Oxygen Delivery Method Room Air Intake Visit Reasons: Chichester scrn Intake Note: ESTABLISHED PATIENT Barbara presents in office today for a scheduled colo consult Meds and Allergies reviewed? Y No recent or relevant surgeries? Prior hx of colo 2020 w/ RM Any significant concerns or new changes? Pt does report sharp abd pains intermittently which are shortly followed by BMs involving loose stools. Pt has recently seen directory operator which has been helping. Pharmacy verified? [facility] Dr. Espinoza Card Grinder Helper Required: No Allergies codeine [Tylenol-Codeine] Allergy (Severe, Verified 08/22/24 15:37) Vomiting compazine Allergy (Severe, Verified 08/22/24 15:37) Seizure hydromorphone [From DILAUDID] Allergy (Severe, Verified 08/22/24 15:37) VOMITING,DIZZY meperidine [Demerol] Allergy (Severe, Verified 08/22/24 15:37) Rash prednisone Allergy (Severe, Verified 08/22/24 15:37) skin blistering amoxicillin [AMOXICILLIN] Allergy (Intermediate, Verified 08/22/24 15:37) HIVES, THRUSH naproxen Adverse Reaction (Intermediate, Verified 08/22/24 15:37) Family History of Kidney Disease HPI HPI Chichester scrn: Details: LAST VISIT: Chronic GERD Will start patient on pantoprazole. Omeprazole was not very effective. Discussed with patient avoiding dietary triggers and late night snacking. Staying upright for minimum 3 hours after meals discussed with patient. Constipation Patient can start taking Senokot and Colace. Patient was also encouraged to increase fluid intake and activity to promote better bowel motility. Patient is agreeable to this plan and verbalizes understanding of instructions. She was given the opportunity to ask questions and all questions answered. ? Thank you for allowing me to participate in her care Plan Medications New pantoprazole 20 mg PO DAILY 90 tabs 1RF docusate sodium 100 mg PO BEDTIME 90 caps 3RF K59.00 - Constipation, unspecified sennosides (Natural Senna Laxative) 17.2 mg (2 x 8.6 mg) PO BEDTIME 180 tabs 3RF constipation K59.00 - Constipation, unspecified Discontinued lidocaine 5% leave on most painful area for up to 12 hrs 1 patch topical DAILY 30 days 30 ea 1RF M54.16 - Radiculopathy, lumbar region, M54.5 - Low back pain duloxetine 30 mg PO DAILY 90 days 90 caps 1RF fluticasone propionate 50 mcg/actuation administer into each nostril 1 spray intranasal BID 90 days 16 grams 2RF TODAY'S VISIT Patient is here today for follow-up. Patient reports that she has been doing better lately. Patient seen directory operator and has changed her diet. Patient is eating healthier avoiding fast food, high in fat or greasy. Patient definitely is feeling better. Able to move her bowels better. Patient denies melena, hematochezia, unintentional weight loss or ribbon like stools. Patient denies any dyspepsia, dysphagia or odynophagia. Patient denies any issues with anesthesia in the past. No history of sleep apnea, however she will be sent for sleep study in September. Patient is not on any anticoagulation medication. Patient had colonoscopy in 2020 tubular adenoma found and recommendation was made for patient to return in 2 years. Patient is overdue for colonoscopy patient missed couple appointments in the past. [facility] Medical History Neck Pain Arm numbness left Neck pain Concussion Numbness and tingling in left arm Diverticulosis Tubular adenoma Osteoarthritis of left knee Chronic GERD Morbid obesity IBS (irritable bowel syndrome) Depression Asthma Anxiety disorder Chronic back pain Neuropathy delivery delivered Cholecystitis Fibromyalgia Arthritis Surgical History H/O colonoscopy H/O knee surgery H/O oophorectomy Hx of section Family History Maternal Grandmother Ovarian ca Sister Slow to wake up after anesthesia Other Substance use disorder Social History Household Members: Spouse Housing: House Are you a primary health care marketing manager to a significant other at home: No Do you presently have visiting nurse or other home services: No Alcohol intake: current Alcohol intake frequency: holidays/special occasions only Alcohol type: beer Comment: COUNTS CORRECT Patient Tobacco Use Status: Former Tobacco user Tobacco use type: Cigarette Years Smoked: 15 years e-Cigarette/Vaping Use: Never Used Substance Use Type: Marijuana Advance Directives Date on File: 04/13/23 service: No 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al status: unemployed 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 Cognitive needs: No Hearing needs: No Vision needs: No Female Reproductive History Menstrual Age of Menarche: 12 Review of Systems Const Denies weight gain and Denies weight loss ENT Reports no additional complaints, Denies dysphagia and Denies odynophagia Card Reports no additional complaints Resp Reports no additional complaints GI Reports abdominal pain (Occasional cramping before bowel movements), Denies belching, Denies melena, Denies bloating, Denies change in bowel habits, Denies dysphagia, Denies excessive flatus, Denies dyspepsia, Denies heartburn, Denies diarrhea, Denies loose stools, Denies nausea, Denies odynophagia and Denies vomiting Reports no additional complaints Musc Reports no additional complaints Neuro Reports no additional complaints Psych Reports no additional complaints Endo Reports no additional complaints Physical Exam Vital Signs: Last Vital Signs Pulse 76 08/22/24 15:37 BP 128/78 08/22/24 15:37 Pulse Ox 99 08/22/24 15:37 Oxygen Delivery Method Room Air 08/22/24 15:37 BMI result Body Mass Index 44.3 Const General: healthy appearing and no acute distress Nutritional Appearance: obese Orientation/consciousness: patient oriented x3 Resp Effort & Inspection: normal respiratory effort, able to speak in complete sentences, no tracheal deviation and symmetric chest movement Auscultation: clear to auscultation bilaterally Cardio Rate: regular rate GI Inspection: Yes normal to inspection, No distended and Yes obesity Palpation (GI): Soft to palpation, not firm, nontender and No hepatosplenomegaly present Auscultation: normal bowel sounds General: Yes no CVA tenderness Back/Spine/Pelvis Back: no CVA tenderness Skin General skin exam: elasticity normal, turgor normal and dry skin Neuro General: patient oriented x3 Psych Appearance: grossly normal Mental Status: mental status grossly normal Assessment & Plan Assessment & Plan (1) Diverticulosis: Code(s): K57.90 - Diverticulosis of intestine, part unspecified, without perforation or abscess without bleeding Category: Medical (2) Tubular adenoma: Code(s): D36.9 - Benign neoplasm, unspecified site Category: Medical (3) IBS (irritable bowel syndrome): Code(s): K58.9 - Irritable bowel syndrome, unspecified Category: Medical Qualifiers: Irritable bowel syndrome type: with constipation Qualified Code(s): K58.1 - Irritable bowel syndrome with constipation (4) Chronic GERD: Code(s): K21.9 - Gastro-esophageal reflux disease without esophagitis Category: Medical Plan Patient will continue follow-up with her directory operator. Patient was encouraged to lose weight. Increase fluid intake and activity to promote better bowel motility. No issues with anesthesia in the past. No history of sleep apnea, however patient is going for sleep study next month. Message sent to surgical schedulers to book procedure. Patient is not on any anticoagulation medication. Stressed the importance of good bowel prep and clear liquid diet. What to do before and after the procedure discussed with patient. Denies any cardiac or respiratory symptoms. I will see her after the procedure, sooner on as needed basis. Medications: New polyethylene glycol 3350 (Miralax) As directed by gastroenterology department at [facility] 238 grams PO ONCE 238 grams 0RF Z12.11 - Encounter for screening for malignant neoplasm of colon bisacodyl (Dulcolax (bisacodyl)) take 4 tabs at noon the day before your colonoscopy 20 mg (4 x 5 mg) PO ONCE 1 day 4 tabs 0RF Z12.11 - Encounter for screening for malignant neoplasm of colon Coding Level of Care Code Est Pt Level 3 (82152) Diagnoses Diverticulosis K57.90 Tubular adenoma D36.9 Irritable bowel syndrome with constipation K58.1 Irritable bowel syndrome type: with constipation Chronic GERD K21.9 Time Spent (min) 30 Comment 20 minutes spent with patient and additional 10 minutes spent reviewing her records
[2024-08-22 15:37] VITALS: BP 128/78; PULSE 76; O2SAT 99; BMI 44.3
== END 2024-08-22 17:00 ==
PROVIDERS: PCP Internal Medicine; Visit Provider Nurse Practitioner Family
DX: K57.90 Diverticulosis of intestine, part unspecified, without perforation or abscess without bleeding (principal); D36.9 Benign neoplasm, unspecified site; K58.1 Irritable bowel syndrome with constipation; K21.9 Gastro-esophageal reflux disease without esophagitis
CPT/HCPCS: 99213

== ENCOUNTER → 2024-08-22 15:24 | Outpatient (BNVA) | payer OTHER, SELFPAY | PROVIDERS: PCP Internal Medicine; Visit Provider Nurse Practitioner Family | DX: K21.9 Gastro-esophageal reflux disease without esophagitis (principal); K57.90 Diverticulosis of intestine, part unspecified, without perforation or abscess without bleeding; K58.1 Irritable bowel syndrome with constipation; D36.9 Benign neoplasm, unspecified site; Z79.899 Other long term (current) drug therapy | CPT/HCPCS: 99212 ==

== ENCOUNTER 2024-09-10 10:28 | Outpatient (AMB) | payer OTHER, SELFPAY ==
--- NOTE | 2024-09-10 10:31 | A.OFFVIS_ITS ---
Vital Signs 09/10/24 10:40 Height 5 ft 7 in Weight 279 lb 2 oz BMI 43.7 BP 132/68 Blood Pressure Location Rt brachial Position Sitting Pulse 82 Pulse Source Pulse Oximeter Pulse Oximetry (%) 97 Oxygen Delivery Method Room Air Intake Visit Reasons: Back pain Intake Note: Pain today 12/20 Benefit Director Required: No Accompanied by: Self / Same As Patient Allergies codeine [Tylenol-Codeine] Allergy (Severe, Verified 09/10/24 10:41) Vomiting compazine Allergy (Severe, Verified 09/10/24 10:41) Seizure hydromorphone [From DILAUDID] Allergy (Severe, Verified 09/10/24 10:41) VOMITING,DIZZY meperidine [Demerol] Allergy (Severe, Verified 09/10/24 10:41) Rash prednisone Allergy (Severe, Verified 09/10/24 10:41) skin blistering amoxicillin [AMOXICILLIN] Allergy (Intermediate, Verified 09/10/24 10:41) HIVES, THRUSH naproxen Adverse Reaction (Intermediate, Verified 09/10/24 10:41) Family History of Kidney Disease HPI Comments Details: Patient presents today to discuss chronic low back pain. She was previously seen in our office for neck pain. She sees Dr. Campos for chronic back pain and neuropathy. Denies any recent trauma, injury or falls. Back is axial and also radiates to upper sacral areas and into left lower anterior leg and foot. Her SLR testing was negative today however she has significant exacerbation of pain with flexion and bending forward, indicating a discogenic source. Left sided radiculopathy has been chronic issue for her and she has been managing this with Neurology medically. Patient has also completed multiple courses of formal physical therapy for low back, knees and hip pain generators in the past 2-3 years with partial improvement. Pain increases with movements, mobility, sleep and social activities. She reports no relief with gabapentin or Lyrica and is currently taking amitriptyline and duloxetine. She is awaiting repeat diagnostic cervical medial branch block injections for potential RFA procedure. Denies any recent cough, cold, infection, fever, bladder or bowel dysfunction, saddle anesthesia, or any ignificant changes in her medical history, medications or recent hospitalizations. Past Procedures: 07/17/24: Diagnostic Left C3-C4-C5 MBB -70-75% pain relief for 6 hours 04/12/24: Diagnostic Right C3-C4-C5 MBB-100% pain relief for 2 weeks 02/02/24: Left parasagittal C7-T1 interlaminar LUISA-40% pain relief PRIOR: Patient is a pleasant 53 years old female with prior history of chronic cervicogenic headaches, fibromyalgia, cervical degenerative disc disease, history of concussion, arthritis, anxiety and most recently onset of vertigo, presents today for initial evaluation of chronic neck pain with left sided radiculopathy. She was referred to us by her Neurologist, Dr. Campos. Most recent cervical MRI was completed in October and noted below. Patient reports axial cervical spine pain which radiates to her left shoulder and left upper arm with associated numbness, tingling and weakness. She also reports cervicogenic headaches on the right. Patient has tried to manage her symptoms with amitriptyline, cyclobenzaprine, Celebrex, duloxetine and also has been taking oxycodone for tendon repair after left TKR. Patient reports dizziness and imbalances episodes due to vertigo. EMR review noted for ER visit in 2020 due to mechanical fall with contusions with no apparent fractures or injuries and negative radiographic study. Denies previous spine surgery but reports remote injections over 15 years ago with various results. Denies any fever, chills, shortness of breaths, gait imbalances, bladder or bowel dysfunction or saddle a nesthesia. Oswestry Neck Disability Score=40 (completely disabled) Location: Neck and chronic migraines Duration: Chronic pain >5 years Characteristics of symptom or complaint: Throbbing, sharp, tingling, tiring, freezing, burning, stabbing, numbness Aggravating or associated factors: Any movement, weather changes, cold, stress Relieving factors: Rest, oxycodone, NSAIDs, muscle relaxants, heat, activity modifications Treatment: PT, chiropractor, TENS, injections 15 years ago in [facility] Medical History Neck Pain Arm numbness left Neck pain Concussion Numbness and tingling in left arm Diverticulosis Tubular adenoma Osteoarthritis of left knee Chronic GERD Morbid obesity IBS (irritable bowel syndrome) Depression Asthma Anxiety disorder Chronic back pain Neuropathy delivery delivered Cholecystitis Fibromyalgia Arthritis Surgical History H/O colonoscopy H/O knee surgery H/O oophorectomy Hx of section Family History Maternal Grandmother Ovarian ca Sister Slow to wake up after anesthesia Other Substance use disorder Social History Household Members: Spouse Housing: House Are you a primary small animal caretaker to a significant other at home: No Do you presently have visiting nurse or other home services: No Alcohol intake: current Alcohol intake frequency: holidays/special occasions only Alcohol type: beer Comment: COUNTS CORRECT Patient Tobacco Use Status: Former Tobacco user Tobacco use type: Cigarette Years Smoked: 15 years e-Cigarette/Vaping Use: Never Used Substance Use Type: Marijuana Advance Directives Date on File: 04/13/23 service: No 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al status: unemployed 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 Alert and oriented. Mood and affect appropriate. Follows and participates in conversation appropriately. Respiratory effort is unlabored. No cough. Able to transition from sit to stand unassisted. Ambulates with bilaterally normal heel strike and toe off. Non-antalgic gait. General: Yes no CVA tenderness Back/Spine/Pelvis Other: Limited lumbar ROM due to pain. Lumbar flexion and bending forward reproduces moderate pain. Lumbar extension is intact and causes mild pain. Facet loading is positive bilaterally. Back: no CVA tenderness Cervical Spine: loss of normal cervical lordosis, cervical muscular tenderness, pain with cervical ROM, No Cervical spine scars present and No Cervical spine tenderness Thoracic/Lumbar Spine: thoracic and lumbar spine normal to inspection, No Thoracic/lumbar spine scar(s), Lasegue's sign negative, straight leg raise negative bilaterally, pain with thoraco-lumbar ROM, paraspinal muscle tenderness, thoraco-lumbar ROM limited, No thoracic spinal tenderness and lumbar spinal tenderness at L4 and at L5 Pelvis: buttock tenderness (upper) bilaterally Sacroiliac joints: bilaterally (Yan's reproduces lateral hip but not back pain) tender to palpation Extrem General: Yes capillary refill normal, Yes no clubbing, cyanosis or edema and Yes no calf tenderness Results Reviewed Results Reviewed: XR LUMBOSACRAL SPINE 06/30/22 CLINICAL INFORMATION: Lumbar radiculopathy. COMPARISON: Radiograph of the lumbar spine dated from 10/14/2021. TECHNIQUE: Three views of the lumbosacral spine. FINDINGS: No evidence of acute compression deformities or malalignment. Similar degree of mild to moderate multilevel lower spondylosis with disc space narrowing and bilateral facet arthropathy, more apparent in the lower lumbar spine. SI joints are symmetric. Pelvic tubal ligation devices are again noted. Right upper quadrant cholecystectomy clips are seen. IMPRESSION: 1. No acute fractures or malalignment. 2. Mild to moderate lumbar spondylosis, similar to prior. Assessment & Plan Assessment & Plan (1) Left lumbar radiculitis: Code(s): M54.16 - Radiculopathy, lumbar region Category: Medical (2) Vertebrogenic low back pain: Code(s): M54.51 - Vertebrogenic low back pain Category: Medical (3) Degenerative disc disease: Category: Medical (4) Lumbosacral spondylosis: Code(s): M47.817 - Spondylosis without myelopathy or radiculopathy, lumbosacral region Category: Medical Plan MRI of the lumbar spine to assess for neural integrity and compression. Back pain has been resistant to conservative treatments, including PT, home exercises, NSAIDS, opioid medication, heat therapy, rest. Patient will return to the clinic to discuss results of the MRI findings when it is done and consider interventional therapy as indicated. Patient is encouraged to continue HEP and stretching exercises, walking, adequate hydration, weight loss, and good posture. All questions and concerns have been answered and patient agree with the treatment plan. Follow up for MRI results and sooner as needed. Orders: Orders MR lumbar spine wo con Today M54.16 - Radiculopathy, lumbar region, M54.51 - Vertebrogenic low back pain Coding Level of Care Code Est Pt Level 4 (46691) Complex EM visit Add On G2211 Diagnoses Left lumbar radiculitis M54.16 Vertebrogenic low back pain M54.51 Degenerative disc disease Lumbosacral spondylosis M47.817
[2024-09-10 10:40] VITALS: BP 132/68; PULSE 82; O2SAT 97; BMI 43.7
== END 2024-09-10 10:51 | disposition home or self-care (01) ==
PROVIDERS: PCP Internal Medicine; Visit Provider Nurse Practitioner Family
DX: M54.16 Radiculopathy, lumbar region (principal); M54.51 Vertebrogenic low back pain; M47.817 Spondylosis without myelopathy or radiculopathy, lumbosacral region
CPT/HCPCS: 99214; G2211

== ENCOUNTER → 2024-09-10 10:28 | Outpatient (BNVA) | payer OTHER, SELFPAY | PROVIDERS: PCP Internal Medicine; Visit Provider Nurse Practitioner Family | DX: M54.16 Radiculopathy, lumbar region (principal); M54.51 Vertebrogenic low back pain; M47.817 Spondylosis without myelopathy or radiculopathy, lumbosacral region | CPT/HCPCS: 99212 ==

== ENCOUNTER → 2024-09-26 09:54 | Outpatient (REF) | payer OTHER, SELFPAY | LOC: HO.SL 09:54 | PROVIDERS: PCP Internal Medicine; Visit Provider Internal Medicine | DX: R40.0 Somnolence (principal); G47.9 Sleep disorder, unspecified; F41.1 Generalized anxiety disorder; M47.812 Spondylosis without myelopathy or radiculopathy, cervical region; R06.83 Snoring | CPT/HCPCS: 95806 ==

== ENCOUNTER → 2024-09-26 10:15 | Outpatient (BNV) | payer OTHER, SELFPAY | PROVIDERS: PCP Internal Medicine; Visit Provider Internal Medicine | DX: R06.83 Snoring (principal) | CPT/HCPCS: 95806 ==

== ENCOUNTER 2024-09-28 14:06 | Outpatient (AMB) | payer OTHER, SELFPAY ==
[2024-09-28 14:06] VITALS: BMI 42.6
--- NOTE | 2024-09-28 14:06 | A.OFFVIS_ITS ---
Vital Signs 3 09/28/24 14:06 Height 5 ft 7 in Weight 272 lb BMI 42.6 Intake Visit Reasons: MRI FOLLOW UP Intake Note: Pain today 01/19 Extractor Operator Solvent Process Required: No Accompanied by: Self / Same As Patient Allergies codeine [Tylenol-Codeine] Allergy (Severe, Verified 09/28/24 14:07) Vomiting compazine Allergy (Severe, Verified 09/28/24 14:07) Seizure hydromorphone [From DILAUDID] Allergy (Severe, Verified 09/28/24 14:07) VOMITING,DIZZY meperidine [Demerol] Allergy (Severe, Verified 09/28/24 14:07) Rash prednisone Allergy (Severe, Verified 09/28/24 14:07) skin blistering amoxicillin [AMOXICILLIN] Allergy (Intermediate, Verified 09/28/24 14:07) HIVES, THRUSH naproxen Adverse Reaction (Intermediate, Verified 09/28/24 14:07) Family History of Kidney Disease HPI Comments Details: Patient presents today via telehealth encounter to discuss recent lumbar spine MRI results. She continues to endorse lower back pain with radiation into her lower extremities, more posteriorly and laterally and into her feet, worse on the left. She reports bilateral hip pain without groin pain. She rates back pain at 5/10 with daily activities and walking. Patient also reports repeat diagnostic cervical medial branch blocks were not approved per insurance to do 2 injection session to confirm source of pain. We will proceed with bilateral cervical medial branch RFA. She had positive response to diagnostic cervical medial branch blocks. Denies any recent cough, cold, infection, fever, weakness, foot drop, bladder or bowel dysfunction, saddle anesthesia or other significant changes in medical history since last office visit. PRIOR: Patient presents today to discuss chronic low back pain. She was previously seen in our office for neck pain. She sees Dr. Campos for chronic back pain and neuropathy. Denies any recent trauma, injury or falls. Back is axial and also radiates to upper sacral areas and into left lower anterior leg and foot. Her SLR testing was negative today however she has significant exacerbation of pain with flexion and bending forward, indicating a discogenic source. Left sided radiculopathy has been chronic issue for her and she has been managing this with Neurology medically. Patient has also completed multiple courses of formal physical therapy for low back, knees and hip pain generators in the past 2-3 years with partial improvement. Pain increases with movements, mobility, sleep and social activities. She reports no relief with gabapentin or Lyrica and is currently taking amitriptyline and duloxetine. She is awaiting repeat diagnostic cervical medial branch block injections for potential RFA procedure. Denies any recent cough, cold, infection, fever, bladder or bowel dysfunction, saddle anesthesia, or any ignificant changes in her medical history, medications or recent hospitalizations. Past Procedures: 07/17/24: Diagnostic Left C3-C4-C5 MBB -70-75% pain relief for 6 hours 04/12/24: Diagnostic Right C3-C4-C5 MBB-100% pain relief for 2 weeks 02/02/24: Left parasagittal C7-T1 interlaminar LUISA-40% pain relief PRIOR: Patient is a pleasant 53 years old female with prior history of chronic cervicogenic headaches, fibromyalgia, cervical degenerative disc disease, history of concussion, arthritis, anxiety and most recently onset of vertigo, presents today for initial evaluation of chronic neck pain with left sided radiculopathy. She was referred to us by her Neurologist, Dr. Campos. Most recent cervical MRI was completed in October and noted below. Patient reports axial cervical spine pain which radiates to her left shoulder and left upper arm with associated numbness, tingling and weakness. She also reports cervicogenic headaches on the right. Patient has tried to manage her symptoms with amitriptyline, cyclobenzaprine, Celebrex, duloxetine and also has been taking oxycodone for tendon repair after left TKR. Patient reports dizziness and imbalances episodes due to vertigo. EMR review noted for ER visit in 2020 due to mechanical fall with contusions with no apparent fractures or injuries and negative radiographic study. Denies previous spine surgery but reports remote injections over 15 years ago with various results. Denies any fever, chills, shortness of breaths, gait imbalances, bladder or bowel dysfunction or saddle anesthesia. Oswestry Neck Disability Score=40 (completely disabled) Location: Neck and chronic migraines Duration: Chronic pain >5 years Characteristics of symptom or complaint: Throbbing, sharp, tingling, tiring, freezing, burning, stabbing, numbness Aggravating or associated factors: Any movement, weather changes, cold, stress Relieving factors: Rest, oxycodone, NSAIDs, muscle relaxants, heat, activity modifications Treatment: PT, chiropractor, TENS, injections [address] [facility] Medical History Neck Pain Arm numbness left Neck pain Concussion Numbness and tingling in left arm Diverticulosis Tubular adenoma Osteoarthritis of left knee Chronic GERD Morbid obesity IBS (irritable bowel syndrome) Depression Asthma Anxiety disorder Chronic back pain Neuropathy delivery delivered Cholecystitis Fibromyalgia Arthritis Surgical History H/O colonoscopy H/O knee surgery H/O oophorectomy Hx of section Family History Maternal Grandmother Ovarian ca Sister Slow to wake up after anesthesia Other Substance use disorder Social History Household Members: Spouse Housing: House Are you a primary home health care coordinator to a significant other at home: No Do you presently have visiting nurse or other home services: No Alcohol intake: current Alcohol intake frequency: holidays/special occasions only Alcohol type: beer Comment: COUNTS CORRECT Patient Tobacco Use Status: Former Tobacco user Tobacco use type: Cigarette Years Smoked: 15 years e-Cigarette/Vaping Use: Never Used Substance Use Type: Marijuana Advance Directives Date on File: 04/13/23 service: No 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al status: unemployed 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 Cognitive needs: No Hearing needs: No Vision needs: No Female Reproductive History Menstrual Age of Menarche: 12 Review of Systems Const All systems reviewed & are unremarkable except as noted in HPI and below Physical Exam Vital Signs: BMI result Body Mass Index 42.6 Telehealth Telehealth Telehealth Platform: Telephone Location of provider rendering services: practice address Location of patient: address on file Patient Identification confirmed using: Name, : Yes Telehealth method: voice only Patient verbally consented to treatment: Yes Patient verbally consented to billing insurance company: Yes Patient informed of any privacy concerns related to visit: Yes Minutes spent on Phone/Video with Pt.: 16 Results Reviewed Results Reviewed: MR SPINE LUMBAR without CONTRAST 09/20/24 at [facility] INDICATION: Radiculopathy, lumbar region. Vertebrogenic lower back pain. Left knee down to foot numbness and cold for four years. TECHNIQUE: Unenhanced multiplanar, multisequence MR imaging of the lumbar spine. COMPARISON: XR lumbar spine 06/30/2022 (report only; imaging unavailable). FINDINGS: There is normal alignment of the lumbar vertebral bodies. The vertebral bodies are of normal height. Mixed endplate Modic type changes L3-L4. Endplate irregularity with marginal osteophyte formation and moderate loss of intervertebral disc space height at this level. Lumbar facet arthrosis. Conus and cauda equina of normal appearance. The conus tip L1-L2. Examination through the L1-L2 and L2-L3 intervertebral levels without central stenosis or significant foraminal narrowing. Examination through the L3-L4 intervertebral level revealing facet arthrosis and prominence of ligamentum flavum. Small posterior disc osteophyte. Mild associated central stenosis. Bilateral lateral recess encroachment. No significant RIGHT foraminal narrowing. Moderate LEFT foraminal narrowing. Examination through the L4-L5 intervertebral level revealing mild facet arthrosis and prominence of ligamentum flavum. Small posterior disc osteophyte. There is no significant central stenosis. Mild bilateral lateral recess encroachment. Mild RIGHT foraminal narrowing. No significant LEFT foraminal narrowing. Examination through the L5-S1 intervertebral level revealing facet arthrosis, RIGHT greater than LEFT. Fluid within the RIGHT facet. There is no significant central stenosis or foraminal narrowing. IMPRESSION: Spondylotic changes and facet arthrosis. No findings of fracture or listhesis. L3-L4 facet arthrosis and prominence of ligamentum flavum. Small posterior disc osteophyte. Mild associated central stenosis. Bilateral lateral recess encroachment. No significant RIGHT foraminal narrowing. Moderate LEFT foraminal narrowing. L4-L5 mild facet arthrosis and prominence of ligamentum flavum. Small posterior disc osteophyte. There is no significant central stenosis. Mild bilateral lateral recess encroachment. Mild RIGHT foraminal narrowing. No significant LEFT foraminal narrowing. L5-S1 facet arthrosis, RIGHT greater than LEFT. Fluid within the RIGHT facet. There is no significant central stenosis or foraminal narrowing. Assessment & Plan Assessment & Plan (1) Bilateral hip pain: Code(s): M25.551 - Pain in right hip; M25.552 - Pain in left hip Category: Medical (2) Venous insufficiency: Code(s): I87.2 - Venous insufficiency (chronic) (peripheral) Category: Medical (3) Neuropathy: Code(s): G62.9 - Polyneuropathy, unspecified Category: Medical (4) Cervicogenic headache: Code(s): G44.86 - Cervicogenic headache Category: Medical (5) Cervical spondylosis: Code(s): M47.812 - Spondylosis without myelopathy or radiculopathy, cervical region Category: Medical (6) Muscle spasm: Code(s): M62.838 - Other muscle spasm Category: Medical (7) Degenerative disc disease: Category: Medical (8) Lumbosacral spondylosis: Code(s): M47.817 - Spondylosis without myelopathy or radiculopathy, lumbosacral region Category: Medical Plan Schedule Bilateral C3-C4-C5 medial branch RFA with sedation and fluoroscopy for persistent axial cervical spine pain. Patient had 100% pain relief for 2 weeks for right side and 70-75% for 6 hours for left side following initial diagnostic cervical MBB. Her chronic neck pain has been resistant to conservative treatments. Expectations, risks and benefits were reviewed. Patient is aware she will be contacted to schedule this procedure. Lumbar spine MRI results were discussed with patient today. Mild associated central and neuroforaminal stenosis that does explain patient's bilateral lower extremity pain, worse on the left with cool and numbness sensations. She sees Neurology for chronic low back pain and neuropathy and underwent EMG of lower extremities in July 2024 with normal EMG testing. We will proceed with Vascular evaluation for venous insufficiency. We will check hip xray to evaluate on lateral hip pain without groin pain. If normal, will proceed with bilateral diagnostic L3-L4 DR L5 MBB with local and fluoroscopy to address axial low back pain. All questions and concerns have been answered and patient agreed with the plan. Follow up for xray results/after RFA and sooner as needed. I hereby testify that I spent 16 minutes in conversation with this patient as well as with planning and coordinating care for this patient and organizing this note. Orders: Orders 2 XR hip BI w PEL 1V Today M25.551 - Pain in right hip, M25.552 - Pain in left hip Referrals 2 Vascular Surgery Referral G62.9 - Polyneuropathy, unspecified, I87.2 - Venous insufficiency (chronic) (peripheral) Coding Level of Care Code Tele Est Pt Level 4 (23800) Complex EM visit Add On G2211 Diagnoses Bilateral hip pain M25.551; M25.552 Venous insufficiency I87.2 Neuropathy G62.9 Cervicogenic headache G44.86 Cervical spondylosis M47.812 Muscle spasm M62.838 Degenerative disc disease Lumbosacral spondylosis M47.817
--- NOTE | 2024-09-28 14:17 | A.OFFVIS_ITS ---
Vital Signs 09/28/24 14:06 09/28/24 14:22 Height 5 ft 7 in Weight 272 lb BMI 42.6 42.6 Intake Visit Reasons: MRI FOLLOW UP Allergies codeine [Tylenol-Codeine] Allergy (Severe, Verified 09/28/24 14:07) Vomiting compazine Allergy (Severe, Verified 09/28/24 14:07) Seizure hydromorphone [From DILAUDID] Allergy (Severe, Verified 09/28/24 14:07) VOMITING,DIZZY meperidine [Demerol] Allergy (Severe, Verified 09/28/24 14:07) Rash prednisone Allergy (Severe, Verified 09/28/24 14:07) skin blistering amoxicillin [AMOXICILLIN] Allergy (Intermediate, Verified 09/28/24 14:07) HIVES, THRUSH naproxen Adverse Reaction (Intermediate, Verified 09/28/24 14:07) Family History of Kidney Disease PFSH Medical History Neck Pain Arm numbness left Neck pain Concussion Numbness and tingling in left arm Diverticulosis Tubular adenoma Osteoarthritis of left knee Chronic GERD Morbid obesity IBS (irritable bowel syndrome) Depression Asthma Anxiety disorder Chronic back pain Neuropathy delivery delivered Cholecystitis Fibromyalgia Arthritis Surgical History H/O colonoscopy H/O knee surgery H/O oophorectomy Hx of section Family History Maternal Grandmother Ovarian ca Sister Slow to wake up after anesthesia Other Substance use disorder Social History Household Members: Spouse Housing: House Are you a primary career professional to a significant other at home: No Do you presently have visiting nurse or other home services: No Alcohol intake: current Alcohol intake frequency: holidays/special occasions only Alcohol type: beer Comment: COUNTS CORRECT Patient Tobacco Use Status: Former Tobacco user Tobacco use type: Cigarette Years Smoked: 15 years e-Cigarette/Vaping Use: Never Used Substance Use Type: Marijuana Advance Directives Date on File: 04/13/23 service: No 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al status: unemployed 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
== END 2024-09-28 14:23 | disposition home or self-care (01) ==
LOC: HO.PMC 14:06
PROVIDERS: PCP Internal Medicine; Visit Provider Nurse Practitioner Family
DX: M25.551 Pain in right hip (principal); M25.552 Pain in left hip; I87.2 Venous insufficiency (chronic) (peripheral); G62.9 Polyneuropathy, unspecified; G44.86 Cervicogenic headache; M47.812 Spondylosis without myelopathy or radiculopathy, cervical region; M62.838 Other muscle spasm; M47.817 Spondylosis without myelopathy or radiculopathy, lumbosacral region
CPT/HCPCS: 99214; G2211

== ENCOUNTER → 2024-09-28 14:06 | Outpatient (BNVA) | payer OTHER, SELFPAY | PROVIDERS: PCP Internal Medicine; Visit Provider Nurse Practitioner Family ==

== ENCOUNTER 2024-10-05 13:57 | Emergency (ER) | payer OTHER, SELFPAY ==
--- NOTE | ~2024-10-05 | CT_ITS ---
CLINICAL HISTORY: Left abdominal pain CT ABDOMEN AND PELVIS WITH CONTRAST Comparison: CT - ABD PELVIS WO CONT [id number] - 06/06/12 00:00 EDT Findings: Mild atelectasis and/or scarring in the right middle and lower lobes. No consolidation or pleural effusion. No hydronephrosis, perinephric edema or urolithiasis. No peripancreatic edema or fluid collection. Several tiny hepatic hypodensities are too small to accurately characterize. Adrenal glands, spleen and abdominal aorta unremarkable. Cholecystectomy. No bowel obstruction, pneumoperitoneum, or pneumatosis. Wall thickening and paracolic edema in the distal transverse proximal descending colon. No free or loculated fluid collection. The appendix is identified. No acute appendicitis. Few sigmoid diverticula with no acute diverticulitis. CT appearance of the uterus unremarkable. No urinary bladder wall thickening or adjacent fat stranding. No acute fracture. Moderate disc space narrowing, vacuum disc and endplate osteophytes L3-4. IMPRESSION: 1. Nonspecific colitis in the distal transverse and proximal descending colon. No bowel perforation or ischemia. 2. No bowel obstruction or ascites. 3. No obstructive or acute inflammatory changes in the genitourinary tract. This document has been electronically signed by: Prachi Dunlap DO on 10/05/2024 21:09:12
[2024-10-05 14:51] VITALS: BP 130/89; PULSE 107; RESP 16; TEMP 36.1; O2SAT 95; BMI 42.8
--- NOTE | 2024-10-05 14:54 | ED_ITS ---
HPI - General Adult General Chief complaint: Abdominal Pain Stated complaint: stomach pain, diharea Time Seen by Provider: 10/05/24 18:13 Source: patient, RN notes reviewed and old records reviewed Mode of arrival: ambulatory Limitations: no limitations History of Present Illness ED Provider: Keith HPI narrative: 54-year-old female past medical history significant for obesity, IBS, anxiety, vertigo iron-deficiency anemia, overactive bladder, diverticulosis presents for evaluation of left-sided abdominal pain. Patient reports that her pain started 2-1/2 days ago. She has associated nausea vomiting and diarrhea. She initially felt better yesterday but then today was unable to tolerate any water. She has not take any medications for her IBS. She follows with GI, Hallie Chacon who recommended the patient presents to the ER if she was unable to tolerate water The patient reports 8/10 pain. Denies any black or bloody stool. She reports vomiting that was mostly bile She reports though she was diagnosed with IBS she does not take any medication for it Related Data Home Medications ?Medication ?Instructions ?Recorded ?Confirmed cyclobenzaprine 10 mg tablet 10 mg PO BID PRN 04/20/24 06/01/24 amitriptyline 50 mg tablet mg PO 07/24/24 duloxetine 60 mg capsule,delayed mg PO 07/24/24 release Previous Rx's ?Medication ?Instructions ?Recorded cane #1 ea 12/28/23 Ventolin HFA 90 mcg/actuation 2 puff inhalation Q6H PRN 05/14/24 aerosol inhaler (albuterol sulfate) shortness of breath or wheezing 90 days #8 grams celecoxib 200 mg capsule 200 mg PO BID #60 caps 07/04/24 tolterodine 2 mg tablet (Detrol) 2 mg PO BID 90 days #180 tabs 07/11/24 hydrocodone 5 mg-acetaminophen 325 1 tab PO .qhs PRN pain 30 days #30 08/16/24 mg tablet tabs lorazepam 0.5 mg tablet 0.5 mg PO DAILY PRN anxiety #30 08/16/24 tabs bisacodyl 5 mg tablet,delayed 20 mg (4 x 5 mg) PO ONCE 1 day #4 08/22/24 release (Dulcolax (bisacodyl)) tabs polyethylene glycol 3350 17 238 g PO ONCE #238 grams 08/22/24 gram/dose oral powder (Miralax) fluticasone propionate 50 1 spray intranasal BID #48 grams 09/13/24 mcg/actuation nasal spray,suspension loratadine 10 mg tablet 10 mg PO DAILY 90 days #90 tabs 09/27/24 omeprazole 40 mg capsule,delayed 40 mg PO DAILY@0630 #90 caps 10/03/24 release ciprofloxacin HCl 500 mg tablet 500 mg PO Q12H #14 tabs 10/05/24 metronidazole 500 mg tablet 500 mg PO Q12H #14 tabs 10/05/24 Allergies Allergy/AdvReac Type Severity Reaction Status Date / Time codeine [Tylenol-Codeine] Allergy Severe Vomiting Verified 10/05/24 14:55 compazine Allergy Severe Seizure Verified 10/05/24 14:55 hydromorphone [From DILAUDID] Allergy Severe VOMITING,DI Verified 10/05/24 14:55 ZZY meperidine [Demerol] Allergy Severe Rash Verified 10/05/24 14:55 prednisone Allergy Severe skin Verified 10/05/24 14:55 blistering amoxicillin [AMOXICILLIN] Allergy Intermediate HIVES, Verified 10/05/24 14:55 THRUSH naproxen AdvReac Intermediate Family Verified 10/05/24 14:55 History of Kidney Disease Review of Systems 2 Constitutional: Constitutional: Denies body ache(s), Denies chills and Denies fever(s) ENT: Denies vertigo and Denies dizziness Cardiovascular: Cardiovascular: Denies chest pain and Denies dyspnea Respiratory: Respiratory: Denies cough and Denies dyspnea Gastrointestinal: Gastrointestinal: Reports abdominal pain, Denies hematochezia, Reports diarrhea, Reports nausea and Reports vomiting Musculoskeletal: Musculoskeletal: Denies back pain Integumentary/Breasts: Skin/Breast: Denies rash Neurologic: Denies vertigo and Denies dizziness PMFSH Past Medical History Medical History Neck Pain Arm numbness left Neck pain Concussion Numbness and tingling in left arm Diverticulosis Tubular adenoma Osteoarthritis of left knee Chronic GERD Morbid obesity IBS (irritable bowel syndrome) Depression Asthma Anxiety disorder Chronic back pain Neuropathy delivery delivered Cholecystitis Fibromyalgia Arthritis Surgical History H/O colonoscopy H/O knee surgery H/O oophorectomy Hx of section Family History Family History Maternal Grandmother Ovarian ca Sister Slow to wake up after anesthesia Other Substance use disorder Social History Social History Household Members: Spouse Housing: House Are you a primary certified social workers in health care to a significant other at home: No Do you presently have visiting nurse or other home services: No Alcohol intake: current Alcohol intake frequency: holidays/special occasions only Alcohol type: beer Comment: COUNTS CORRECT Patient Tobacco Use Status: Former Tobacco user Tobacco use type: Cigarette Years Smoked: 15 years Smoked in Last 30 Days: No e-Cigarette/Vaping Use: Never Used Use of substances other than those prescribed or required for medical reasons: No Substance Use Type: Marijuana Advance Directives: Yes Advance Directives on File: Yes Advance Directives Date on File: 04/13/23 Do you have a plan to hurt others: No Plan service: No 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al status: unemployed 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 Cognitive needs: No Hearing needs: No Vision needs: No Physical Exam ED Vital Signs: Vital Signs - 24 hr 10/05/24 14:51 10/05/24 18:35 10/05/24 21:19 Temperature 97 F 98.7 F 98.0 F Pulse Rate 107 H 99 107 H Respiratory Rate 16 20 20 Blood Pressure 130/89 138/74 116/58 L Pulse Oximetry 95 99 95 Oxygen Delivery Method Room Air Room Air Room Air BMI result Body Mass Index 42.8 Const General: healthy appearing, comfortable, no acute distress, alert and awake Nutritional Appearance: well nourished Orientation/consciousness: patient oriented x3 HENMT Head: Yes normocephalic and Yes atraumatic Eyes Eyelids: Yes eyelids normal Conjunctivae: conjunctivae normal Sclerae: sclerae normal Corneas: corneas normal Pupils: Equal, round and reactive pupils present EOM: EOMs intact bilaterally Neck Neck: Yes full ROM Resp Effort & Inspection: normal respiratory effort, able to speak in complete sentences and not labored Cardio Rate: regular rate Rhythm: regular rhythm GI Other: There is no rebound tenderness the patient has guarding to palpation in the left upper and lower abdomen Inspection: No distended Palpation (GI): Soft to palpation, not firm, Tenderness to palpation present (GI) in the LLQ and in the LUQ, Guarding due to palpation present (GI) and not rigid Auscultation: normoactive bowel sounds Skin General skin exam: elasticity normal Neuro General: patient oriented x3 Cranial nerves: Yes Equal, round and reactive pupils present and Yes Bilaterally intact EOM present Cognition (Neuro): normal cognition Extrem Other: Moving all extremities well without any obvious deformities Course Course Course Narrative: This is a rapid medical exam performed by Denis Muniz NP: Additional HPI, ROS, PE not included below will be deferred to primary provider. Patient is a 54-year-old female with history of IBS, migraines, anemia, obesity, GERD, fibromyalgia stating that on 5am Wed woke with stabbing LUQ pain, 7am developed diarrhea, then small amount of vomiting. Also feels lightheaded. Referred by PCP. States stool has been becoming more solid. Plan: labs, UA Reevaluation(s) Reevaluation #1: Patient's CT scan shows nonspecific colitis, no evidence of diverticulitis. We will treat with ciprofloxacin and Flagyl. I discussed the risks of both these medications including tendinitis and wounds of alcohol while using this. She is stable for discharge. Time: 21:54 Medications Administered Discontinued Medications Generic Name Dose Route Start Last Admin Trade Name Shonda PRN Reason Stop Dose Admin Sodium Chloride 1,000 mls @ 999 mls/hr 10/05/24 18:30 10/05/24 20:07 Ns IV 10/05/24 19:30 Infused .Q1H1M JO Infusion Iohexol 100 ml 10/05/24 19:39 10/05/24 19:41 Iohexol 350 Mg/Ml 100 Ml Infus..Btl IV 10/05/24 19:40 100 ml ONCE ONE Administration Ondansetron HCl 4 mg 10/05/24 18:22 10/05/24 18:44 Ondansetron Hcl 4 Mg/2 Ml Vial IVPUSH 10/05/24 18:23 4 mg ONCE ONE Administration Pantoprazole Sodium 40 mg 10/05/24 18:22 10/05/24 18:44 Pantoprazole Sodium 40 Mg/10 Ml Vial IVPUSH 10/05/24 18:23 40 mg ONCE ONE Administration Medical Decision Making Medical Decision Making MDM Narrative: 54-year-old female with past medical history as documented above presents for evaluation abdominal pain. Her labs were reviewed and relatively unremarkable. There is no leukocytosis or anemia. The patient does have a slight left shift which could be reactive to her vomiting could be due to some infectious process. She was have a mild elevation of AST and ALT which may be related to a viral etiology. Given her abdominal tenderness on exam we will get a CT scan of the abdomen pelvis to evaluate for diverticulitis Differential Diagnosis Differential Diagnoses: The differential diagnosis associated with the presentation includes Neuro virus Vital virus Colitis Diverticulitis IBS flare Lab Data [facility] Lab Attestation statement: I reviewed the patient's lab results. As above 10/05/24 15:18 10/05/24 15:18 Labs: Lab Results 10/05/24 Range/Units 15:18 WBC 10.7 (4.8-10.8) X10*3/uL RBC 4.37 (4.20-5.50) X10*6/uL Hgb 13.3 (12.0-16.0) g/dl Hct 39.7 (37.0-47.0) % MCV 90.8 (80.0-98.0) fL MCH 30.4 (27.0-33.0) pg MCHC 33.5 (31.0-35.0) g/dl RDW 13.4 (11.0-16.0) % Plt Count 323 (160-400) X10*3/uL MPV 9.7 (9.4-12.3) fL Immature Gran % (Auto) 0.4 (0.0-0.4) % Neut % (Auto) 78.1 H (45-73) % Lymph % (Auto) 12.5 L (20-40) % Bucks % (Auto) 6.8 (2-11) % Eos % (Auto) 1.8 (0-4) % Baso % (Auto) 0.4 (0-2) % Lymph # (Auto) 1.3 (1.2-4.9) X10*3/uL [place] # (Auto) 0.7 (0.1-1.2) X10*3/uL Eos # (Auto) 0.2 (0.0-0.4) X10*3/uL Baso # (Auto) 0.0 (0.0-0.2) X10*3/uL Abs Immat Gran (auto) 0.04 H (0.00-0.03) X10*3/uL Absolute Neuts (auto) 8.3 (2.0-8.3) x10*3/uL Absolute Nucleated RBC 0.000 (0.0-0.012) X10*3/uL Nucleated RBC % (auto) 0.0 (0.0-0.2) /100WBC PT 12.3 (10.9-12.4) SEC INR 1.1 (0.9-1.1) Sodium 137 (135-145) mmol/L Potassium 4.3 (3.3-5.1) mmol/L Chloride 103 (96-108) mmol/L Carbon Dioxide 26 (22-29) mmol/L Anion Gap 12 (12-20) BUN 14 (9-16) mg/dL Creatinine 1.01 (0.5-1.4) mg/dL Estim Creat Clear Calc 87.0 Estimated GFR 57 Random Glucose 97 (60-115) mg/dL Calcium 9.8 (8.4-10.2) mg/dL Magnesium 1.8 (1.6-2.6) mg/dL Total Bilirubin 0.5 (0.0-1.0) mg/dL AST 41 H (5-31) U/L ALT 66 H (0-31) U/L Alkaline Phosphatase 95 (39-117) U/L Total Protein 8.1 H (6.5-8.0) g/dL Albumin 4.0 (3.5-5.0) g/dL Lipase 7 L (8-78) U/L Urine Color Yellow Urine Appearance Clear Urine pH 5.5 (5.0-9.0) Ur Specific [place] 1.010 (1.005-1.025) Urine Protein Negative (Neg-Trace) mg/dL Urine Glucose (UA) Negative (Negative) mg/dL Urine Ketones Negative (Negative) mg/dL Urine Blood Negative (Negative) Urine Nitrite Negative (Negative) Ur Leukocyte Esterase Negative (Negative) Influenza Type A (PCR) NEGATIVE (Negative) Influenza Type B (PCR) NEGATIVE (Negative) RSV RNA Qual (PCR) NEGATIVE (Negative) SARS-CoV-2 RNA (RT-PCR) NEGATIVE (Negative) Discharge Plan Discharge Clinical Impression: Colitis Patient Disposition: Home, Self-Care Instructions: Colitis (ED) Additional Instructions: Take both metronidazole and ciprofloxacin as prescribed, twice daily for 1 week. I recommend a liquid diet for the next 2 days and advance as tolerated. Follow up with your primary doctor, return for new or worsening symptoms As discussed, you should not drink alcohol while taking metronidazole and avoid excessive activity while taking ciprofloxacin Prescriptions: New ciprofloxacin HCl 500 mg tablet 500 mg PO Q12H Qty: 14 0RF metronidazole 500 mg tablet 500 mg PO Q12H Qty: 14 0RF No Action (DME) cane Device See Rx Instructions .MEDSUPPLY Qty: 1 0RF Rx Instructions: quad cane albuterol sulfate [Ventolin HFA] 90 mcg/actuation HFA aerosol inhaler 2 puff inhalation Q6H PRN (Reason: shortness of breath or wheezing) 90 Days Qty: 8 0RF celecoxib 200 mg capsule 200 mg PO BID Qty: 60 3RF tolterodine [Detrol] 2 mg tablet 2 mg PO BID 90 Days Qty: 180 0RF fluticasone propionate 50 mcg/actuation spray,suspension 1 spray intranasal BID Qty: 48 0RF loratadine 10 mg tablet 10 mg PO DAILY 90 Days Qty: 90 0RF omeprazole 40 mg capsule,delayed release(DR/EC) 40 mg PO DAILY@0630 Qty: 90 0RF cyclobenzaprine 10 mg tablet 10 mg PO BID PRN hydrocodone-acetaminophen 5-325 mg tablet 1 tab PO .qhs PRN (Reason: pain) 30 Days Qty: 30 0RF Rx Instructions: Partial Fill upon patient request. lorazepam 0.5 mg tablet 0.5 mg PO DAILY PRN (Reason: anxiety) Qty: 30 0RF bisacodyl [Dulcolax (bisacodyl)] 5 mg tablet,delayed release (DR/EC) 20 mg PO ONCE 1 Days Qty: 4 0RF Rx Instructions: take 4 tabs at noon the day before your colonoscopy polyethylene glycol 3350 [Miralax] 17 gram/dose powder 238 g PO ONCE Qty: 238 0RF Rx Instructions: As directed by gastroenterology department at [facility] duloxetine 60 mg capsule,delayed release(DR/EC) PO amitriptyline 50 mg tablet PO Print Language: Divehi
[2024-10-05 15:26] LABS: MANUAL DIFF FLAG NO
[2024-10-05 15:28] LABS: Appearance Urine Clear; Basophils Percent Auto 0.4 % (0-2); Color Urine Yellow; Eosinophils Absolute Auto 0.2 X10*3/uL (0.0-0.4); Eosinophils Percent Auto 1.8 % (0-4); Glucose Urine UA Negative (Negative); Hematocrit 39.7 % (37.0-47.0); Hemoglobin 13.3 g/dl (12.0-16.0); Imm Gran Abs Auto 0.04 X10*3/uL (0.00-0.03); Imm Gran Pct Auto 0.4 % (0.0-0.4); Leukocyte Esterase Urine Negative (Negative); Lymphocytes Absolute Auto 1.3 X10*3/uL (1.2-4.9); Lymphocytes Percent Auto 12.5 % (20-40); Mean Corpuscular HGB Conc 33.5 g/dl (31.0-35.0); Mean Corpuscular Hemoglobin 30.4 pg (27.0-33.0); Mean Corpuscular Volume 90.8 fL (80.0-98.0); Mean Platelet Volume 9.7 fL (9.4-12.3); Monocytes Absolute Auto 0.7 X10*3/uL (0.1-1.2); Monocytes Percent Auto 6.8 % (2-11); Neutrophils Absolute Auto 8.3 x10*3/uL (2.0-8.3); Neutrophils Percent Auto 78.1 % (45-73); Nitrite Urine Negative (Negative); PH 5.5 (5.0-9.0); Platelet Count 323 X10*3/uL (160-400); Red Blood Count 4.37 X10*6/uL (4.20-5.50); Red Cell Distribution Width 13.4 % (11.0-16.0); Urine Blood Negative (Negative); Urine Ketones Negative (Negative); Urine Protein Negative (Neg-Trace); White Blood Count 10.7 X10*3/uL (4.8-10.8)
[2024-10-05 15:33] LABS: INTERNATIONAL NORM RATIO 1.1 (0.9-1.1); Prothrombin Time 12.3 SEC (10.9-12.4)
[2024-10-05 15:44] LABS: Alanine Aminotransferase 66 U/L (0-31); Alkaline Phosphatase 95 U/L (39-117); Anion Gap 12 (12-20); Aspartate Amino Transferase 41 U/L (5-31); Bilirubin Total 0.5 mg/dL (0.0-1.0); Blood Urea Nitrogen 14 mg/dL (9-16); Calcium 9.8 mg/dL (8.4-10.2); Carbon Dioxide 26 mmol/L (22-29); Chloride 103 mmol/L (96-108); Estimated Glomerular Filt Rate 57; Glucose Random 97 mg/dL (60-115); Lipase 7 U/L (8-78); Magnesium 1.8 mg/dL (1.6-2.6); Potassium 4.3 mmol/L (3.3-5.1); Sodium 137 mmol/L (135-145); Total Protein 8.1 g/dL (6.5-8.0)
[2024-10-05 16:04] LABS: Influenza A PCR NEGATIVE (Negative); Influenza B PCR NEGATIVE (Negative); Resp Syncy Virus RNA Qual PCR NEGATIVE (Negative); SARS COV2 PCR INHOUSE NEGATIVE (Negative)
[2024-10-05 18:35] VITALS: BP 138/74; PULSE 99; RESP 20; TEMP 37.1; O2SAT 99
[2024-10-05] MEDS: Pantoprazole Sodium 40 MG/10 ML VIAL IVPUSH (18:44)
[2024-10-05] MEDS: 0.9 % Sodium Chloride 1,000 ML 999 ML IV (18:44)
[2024-10-05] MEDS: ondansetron HCL 4 MG/2 ML VIAL IVPUSH (18:44)
[2024-10-05] MEDS: iohexoL 350 MG/ML 100 ML INFUS..BTL IV (19:41)
[2024-10-05 21:19] VITALS: BP 116/58; PULSE 107; RESP 20; TEMP 36.7; O2SAT 95
[2024-10-05] MEDS: metroNIDAZOLE 500 MG TABLET PO (22:02)
[2024-10-05 22:05] VITALS: BP 116/58; PULSE 107; RESP 20; TEMP 36.6; O2SAT 95
== END 2024-10-05 22:06 | disposition home or self-care (01) ==
PROVIDERS: Registered Nurse Emergency; Emergency Provider Emergency Medicine Emergency Medical Services; PCP Internal Medicine
DX: K52.9 Noninfective gastroenteritis and colitis, unspecified (principal); R10.2 Pelvic and perineal pain; R11.2 Nausea with vomiting, unspecified; Z79.899 Other long term (current) drug therapy; Z03.818 Encounter for observation for suspected exposure to other biological agents ruled out
CPT/HCPCS: 0241U; 36415; 74177; 80053; 81003; 83690; 83735; 85025; 85610; 96361; 96374; 96375; 99284; J2405; J2470; Q9967

== ENCOUNTER → 2024-10-05 18:21 | Outpatient (BNV) | payer OTHER, SELFPAY | PROVIDERS: Emergency Provider Emergency Medicine Emergency Medical Services; PCP Internal Medicine; Visit Provider Radiology Diagnostic Radiology | DX: R10.32 Left lower quadrant pain (principal) | CPT/HCPCS: 74177 ==

== ENCOUNTER 2024-10-09 13:25 | Outpatient (REF) | payer OTHER, SELFPAY ==
--- NOTE | ~2024-10-09 | XR_ITS ---
CLINICAL HISTORY: M25.551 - Pain in right hip Pelvis and bilateral hips two views Comparison: CT 10/05/2024 Findings: No acute fracture or dislocation identified. No acute focal bony abnormality. Surgical clip midline pelvis. Impression: No acute bony abnormality This document has been electronically signed by: Reymundo Sawant MD on 10/10/2024 19:09:25
== END 2024-10-09 13:26 | disposition home or self-care (01) ==
LOC: HO.XRAY 13:25
PROVIDERS: Absent Provider Nurse Practitioner Family; PCP Internal Medicine; Visit Provider Nurse Practitioner Family
DX: K57.90 Diverticulosis of intestine, part unspecified, without perforation or abscess without bleeding (principal); K58.1 Irritable bowel syndrome with constipation; K21.9 Gastro-esophageal reflux disease without esophagitis; R11.2 Nausea with vomiting, unspecified; K59.1 Functional diarrhea; M25.551 Pain in right hip; M25.552 Pain in left hip
CPT/HCPCS: 73521; 99212

== ENCOUNTER 2024-10-09 13:25 | Outpatient (AMB) | payer OTHER, SELFPAY ==
--- NOTE | 2024-10-09 13:28 | MHC.OFFVIS ---
Vital Signs 10/09/24 13:32 Height 5 ft 7 in Weight 273 lb 5.971 oz BMI 42.8 BP 115/72 Blood Pressure Location Lt brachial Position Sitting Intake Visit Reasons: Seen in ER x3 days ago. Colitis. Intake Note: Barbara presents in the office as a ED follow up for Colitis. CC: She states that she is on a liquid diet because she is unable to eat. Food goes right through her. She is having a possible flare up due to the colitis - she was not sure what it was but she woke up with pains in her left side and then she was having non stop diarrhea for 36 hours. She had contacted Jd and he told her that if she was unable to tolerate water to go to the ED. She had a PCP appt and they told her to go to the ER because she was unable to keep things down and she ended up there all day and was told she has Colitis. Still having cramping, pains, nausea, diarrhea. Weaving Teacher Required: No Allergies codeine [Tylenol-Codeine] Allergy (Severe, Verified 10/09/24 13:28) Vomiting compazine Allergy (Severe, Verified 10/09/24 13:28) Seizure hydromorphone [From DILAUDID] Allergy (Severe, Verified 10/09/24 13:28) VOMITING,DIZZY meperidine [Demerol] Allergy (Severe, Verified 10/09/24 13:28) Rash prednisone Allergy (Severe, Verified 10/09/24 13:28) skin blistering amoxicillin [AMOXICILLIN] Allergy (Intermediate, Verified 10/09/24 13:28) HIVES, THRUSH naproxen Adverse Reaction (Intermediate, Verified 10/09/24 13:28) Family History of Kidney Disease HPI HPI Seen in ER x3 days ago. Colitis.: Details: LAST VISIT Diverticulosis Tubular adenoma IBS (irritable bowel syndrome) Chronic GERD Plan Patient will continue follow-up with her internet ecommerce specialist. Patient was encouraged to lose weight. Increase fluid intake and activity to promote better bowel motility. No issues with anesthesia in the past. No history of sleep apnea, however patient is going for sleep study next month. Message sent to surgical schedulers to book procedure. Patient is not on any anticoagulation medication. Stressed the importance of good bowel prep and clear liquid diet. What to do before and after the procedure discussed with patient. Denies any cardiac or respiratory symptoms. I will see her after the procedure, sooner on as needed basis. Medications New polyethylene glycol 3350 (Miralax) As directed by gastroenterology department at [facility] 238 grams PO ONCE 238 grams 0RF Z12.11 bisacodyl (Dulcolax (bisacodyl)) take 4 tabs at noon the day before your colonoscopy 20 mg (4 x 5 mg) PO ONCE 1 day 4 tabs 0RF Z12.11 ED VISIT 10/05/2024 HPI narrative: 54-year-old female past medical history significant for obesity, IBS, anxiety, vertigo iron-deficiency anemia, overactive bladder, diverticulosis presents for evaluation of left-sided abdominal pain. Patient reports that her pain started 2-1/2 days ago. She has associated nausea vomiting and diarrhea. She initially felt better yesterday but then today was unable to tolerate any water. She has not take any medications for her IBS. She follows with GI, Hallie Chacon who recommended the patient presents to the ER if she was unable to tolerate water The patient reports 8/10 pain. Denies any black or bloody stool. She reports vomiting that was mostly bile She reports though she was diagnosed with IBS she does not take any medication for it CT OF ABDOMEN AND PELVIS FROM ED VISIT 10/05/2024 IMPRESSION: 1. Nonspecific colitis in the distal transverse and proximal descending colon. No bowel perforation or ischemia. 2. No bowel obstruction or ascites. 3. No obstructive or acute inflammatory changes in the genitourinary tract. TODAY'S VISIT Patient is here today follow-up ED visit 4 days ago. Patient was in contact with our office about her symptoms. Diarrhea and nausea and vomiting. Patient was unable to hold her fluids and was told to go to ED. Patient reports that she had diarrhea left upper and left upper quadrant pain and abdominal bloating. Patient denies any melena or hematochezia. Denies any mucus in her stools. No fever or chills. CT scan showed nonspecific colitis in the distal transverse and proximal descending colon without any bowel perforation or ischemia. Patient was placed on antibiotics for week and sent home. No leukocytosis. Patient reports today that she has been feeling little better. The antibiotics are helping still has left lumbar pain. Occasional loose stools, however no vomiting. Occasional nausea, however patient reports that she is only eating crackers and jimy sarthak. Is afraid to eat anything else can her vomiting. Patient is waiting to be scheduled for colonoscopy. Last colonoscopy was done in 2020 moderate diverticulosis found. [facility] Medical History Neck Pain Arm numbness left Neck pain Concussion Numbness and tingling in left arm Diverticulosis Tubular adenoma Osteoarthritis of left knee Chronic GERD Morbid obesity IBS (irritable bowel syndrome) Depression Asthma Anxiety disorder Chronic back pain Neuropathy delivery delivered Cholecystitis Fibromyalgia Arthritis Surgical History History of esophagogastroduodenoscopy (EGD) H/O colonoscopy H/O knee surgery H/O oophorectomy Hx of section Family History Maternal Grandmother Ovarian ca Sister Slow to wake up after anesthesia Other Substance use disorder Social History Household Members: Spouse Housing: House Are you a primary health care specialist to a significant other at home: No Do you presently have visiting nurse or other home services: No Alcohol intake: current Alcohol intake frequency: holidays/special occasions only Alcohol type: beer Comment: COUNTS CORRECT Patient Tobacco Use Status: Former Tobacco user Tobacco use type: Cigarette Years Smoked: 15 years e-Cigarette/Vaping Use: Never Used Substance Use Type: Marijuana Advance Directives Date on File: 04/13/23 service: No 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al status: unemployed 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 Cognitive needs: No Hearing needs: No Vision needs: No Female Reproductive History Menstrual Age of Menarche: 12 Review of Systems Const Denies weight gain and Denies weight loss ENT Reports no additional complaints, Denies dysphagia and Denies odynophagia Card Reports no additional complaints Resp Reports no additional complaints GI Reports abdominal pain (LLQ), Denies belching, Denies melena, Reports bloating, Denies change in bowel habits, Denies dysphagia, Denies excessive flatus, Denies dyspepsia, Denies heartburn, Denies diarrhea, Reports loose stools, Reports nausea, Denies odynophagia and Denies vomiting Musc Reports no additional complaints Neuro Reports no additional complaints Psych Reports no additional complaints Endo Reports no additional complaints Physical Exam Vital Signs: Last Vital Signs BP 115/72 10/09/24 13:32 BMI result Body Mass Index 42.8 Const General: healthy appearing and no acute distress Nutritional Appearance: obese Orientation/consciousness: patient oriented x3 Resp Effort & Inspection: normal respiratory effort, able to speak in complete sentences, no tracheal deviation and symmetric chest movement Auscultation: clear to auscultation bilaterally Cardio Rate: regular rate GI Inspection: Yes normal to inspection, No distended and Yes obesity Palpation (GI): Soft to palpation, not firm, nontender and No hepatosplenomegaly present Auscultation: normal bowel sounds General: Yes no CVA tenderness Back/Spine/Pelvis Back: no CVA tenderness Skin General skin exam: elasticity normal, turgor normal and dry skin Neuro General: patient oriented x3 Psych Appearance: grossly normal Mental Status: mental status grossly normal Assessment & Plan Assessment & Plan (1) Diverticulosis: Code(s): K57.90 - Diverticulosis of intestine, part unspecified, without perforation or abscess without bleeding Category: Medical (2) Tubular adenoma: Code(s): D36.9 - Benign neoplasm, unspecified site Category: Medical (3) IBS (irritable bowel syndrome): Code(s): K58.9 - Irritable bowel syndrome, unspecified Category: Medical Qualifiers: Irritable bowel syndrome type: with constipation Qualified Code(s): K58.1 - Irritable bowel syndrome with constipation (4) Chronic GERD: Code(s): K21.9 - Gastro-esophageal reflux disease without esophagitis Category: Medical (5) Colitis: Code(s): K52.9 - Noninfective gastroenteritis and colitis, unspecified (6) Nausea & vomiting: Code(s): R11.2 - Nausea with vomiting, unspecified Qualifiers: Vomiting type: unspecified Qualified Code(s): R11.2 - Nausea with vomiting, unspecified (7) Diarrhea: Code(s): R19.7 - Diarrhea, unspecified Qualifiers: Diarrhea type: functional diarrhea Qualified Code(s): K59.1 - Functional diarrhea Plan History of IBS most likely functional diarrhea and now patient is on antibiotic. Unspecific colitis/diverticulitis most likely from frequent diarrhea and inability to empty her bowels well. Patient has moderate diverticulosis in the left side of her colon. Patient will finish all of her antibiotics. She can advance her diet. Will send her script for Citrucel and she can take it 1-2 daily. Patient continues to have nausea, will send her script for Reglan. Patient is to call our office in a couple of weeks if her symptoms will continue or get worse she is to go back to emergency room for further workup. Patient had no leukocytosis when in the ED. continue omeprazole. Avoid dietary triggers and late night snacking. Staying upright for minimum 3 hours after meals discussed with patient. patient will return in 2 months. Patient is due to go for colonoscopy we will schedule when able. She is agreeable to this plan and verbalizes understanding of instructions. She was given the opportunity to ask questions and all questions answered. Thank you for allowing me to participate in her care Medications: New metoclopramide HCl (Reglan) 5 mg PO Q8-10H 30 tabs 0RF K31.84 - Gastroparesis methylcellulose (laxative) (Citrucel) take it with full glass of water 500 mg PO DAILY 90 tabs 2RF K59.00 - Constipation, unspecified Coding Level of Care Code Est Pt Level 4 (84457) Complex EM visit Add On G2211 Diagnoses Diverticulosis K57.90 Tubular adenoma D36.9 Irritable bowel syndrome with constipation K58.1 Irritable bowel syndrome type: with constipation Chronic GERD K21.9 Colitis K52.9 Nausea and vomiting, unspecified vomiting type R11.2 Vomiting type: unspecified Functional diarrhea K59.1 Diarrhea type: functional diarrhea Time Spent (min) 40 Comment 25 minutes spent with patient and additional 15 minutes spent reviewing her records
[2024-10-09 13:32] VITALS: BP 115/72; BMI 42.8
--- OUTSIDE RECORDS SUMMARY | 2024-10-09 14:25 | XMS_ITS | Encounter Summary ---
Author Organization [facility] Address [address] [place] [address] Care Team Providers Care Cold Mill Operator Name Role Phone Sierra Edge MD Primary Care Provider Unavailable Cody Murcia MD Primary Care Provider Juliet Hoffman MD Primary Care Provider Unavailabl e Encounter Details Date Type Department Care Team Description 04/25/2014 Pt. Non Urgent Medic al Question Adult Medicine [address] [address] Sierra Edge MD Social History Tobacco Use Types Packs/Day Years Used Date Smoking Tobacco: Former Cigarettes Q uit: 04/07/2008 Alcohol Use Standard Drinks/Week Comments Yes 0 (1 standard drink = 0.6 oz pur e alcohol) 1-2 drinks per mo Sex Assigned at Date Recorded Not on file Job Start Date Occupation Industry Not on file Not on file Not on file documented as of this encounter Progress Notes * Suki Posey M.A. - 04/25/2014 1:19 PM EDTFrom: Barbara Harris To: Sierra Edge MD Sent: 04/25/2014 11:53 AM EDT Subject: Handicap Plaque I have had a handicap plaque for the last [address] use to fill out the paper but since he has kicked me back to dr akers i want to know since it is about to run out and i need it renewed is this something dr akers will do or what can i do for this documented in this encounter Plan of Treatment Not on file documented as of this encounter Visit Diagnoses Not on filedocumented in this encounter Care Teams Cold Mill Operator Relationship Specialty Start Date End Date Sierra Edge MD PCP - General Internal Medicine 01/11/1308/12/15 Cody Murcia MD PCP - General Internal Medicine 08/13/15 05/19/21 Juliet Torres MD PCP - General Internal Medicine 06/18/21 documented as of this encounter
--- OUTSIDE RECORDS SUMMARY | 2024-10-09 14:25 | XMS_ITS | Encounter Summary ---
Author Organization [facility] Address [address] [place] [address] Care Team Providers Care Manager Risk Management Name Role Phone Juliet Torres MD Primary Care Provider Unavaillucien e Encounter Details Date Type Department Care Team Description 05/20/2021 Pt. Non Urgent Medic al Question [facility] Medical [facility] [address] [place] [address] [place] [phone] Pierre Ghotra MD Social History Tobacco Use Types Packs/Day Years Used Date Smoking Tobacco: Unknown Smokeless Tobacco: Never Alcohol Use Standard Drinks/Week Comments Never 0 (1 standard drink = 0.6 oz pur e alcohol) 1-2 drinks per mo Sex Assigned at Date Recorded Not on file Job Start Date Occupation Industry Not on file Not on file Not on file COVID-19 Exposure Response Date Recorded In the last month, have you been in contact with someone who was confirmed or suspected to have Coronavirus / COVID-19? No / Unsure 05/20/2021 1:38 PM EDT documented as of this encounter Miscellaneous Notes * Telephone Encounter - Amrit Hewitt - 05/21/2021 7:47 AM EDTFrom: Barbara Harris To: Cain Ghotra Sent: 05/20/2021 3:19 PM EDT Subject: Aspirin I just saw in the after notes that it says 2 more weeks on 81 mg aspirin my script ran out yesterday do I need a refill or should I buy OTC. Thank you documented in this encounter Plan of Treatment Not on file documented as of this encounter Visit Diagnoses Not on filedocumented in this encounter Care Teams Manager Risk Management Relationship Specialty Start Date End Date Juliet Torres MD PCP - General Internal Medicine 06/18/21 documented as of this encounter
--- OUTSIDE RECORDS SUMMARY | 2024-10-09 14:25 | XMS_ITS | Encounter Summary ---
Author Organization [facility] Address [address] [place] [address] Care Team Providers Care Bricklayer Paving Brick Name Role Phone Sierra Edge MD Primary Care Provider Unavailable Cody Murcia MD Primary Care Provider Juliet Hoffman MD Primary Care Provider Unavailabl e Reason for Visit * Reason Comments E-prescribe Rx Request Encounter Details Date Type Department Care Team Description 02/03/2014 Refill Adult Medicine [address] [address] Karissa Mckeon PA-C E-prescribe Rx Request Social History Tobacco Use Types Packs/Day Years Used Date Smoking Tobacco: Former Cigarettes Q uit: 04/07/2008 Alcohol Use Standard Drinks/Week Comments Yes 0 (1 standard drink = 0.6 oz pur e alcohol) 1-2 drinks per mo Sex Assigned at Date Recorded Not on file Job Start Date Occupation Industry Not on file Not on file Not on file documented as of this encounter Miscellaneous Notes * Telephone Encounter - Suki Posey M.A. - 02/05/2014 11:05 AM EDT Pt is scheduled with dr akers today can be addressed at that time lorazepam (ATIVAN) 0.5 MG tablet 30 Tab 0 02/01/2014 03/03/2014 Sig - Route: Take 1 Tab by mouth daily as needed for Anxiety. - Oral Class: Print Reason for Refusal: Refill not appropriate. Reason for Refusal Comment: needs office visit, prior contract violation. didnt f/u as I requested Refused By: Karissa Mckeon PA-C * Telephone Encounter - Nisreen Grant - 02/05/2014 10:21 AM EDT Patient would like script to be: E-PRESCRIBED/FAXED TO PHARMACY WHEN WAS THE PATIENT'S LAST APPOINTMENT IN ADULT MEDICINE? 12/27/13 WHEN WAS THE LAST TIME THE PATIENT SAW THEIR PCP? Same as above Does patient have an upcoming appointment? Yes 02/05/14 (THE MEDICATION REQUESTED IS ON THE MED LIST ABOVE) All of the medications requested were on the CURRENT MEDS list Did you check the Pharmacy information above?: YES Patient wants: 30 -day supply Is this a mail order prescription request ? NO Patients current insurance carrier is: Payor: [employer] FFS Plan: FFS HMO $0 [id number] Product Type: MEDICAID RISK documented in this encounter Plan of Treatment Not on file documented as of this encounter Visit Diagnoses Not on filedocumented in this encounter Care Teams Bricklayer Paving Brick Relationship Specialty Start Date End Date Sierra Edge MD PCP - General Internal Medicine 01/11/1308/12/15 Cody Murcia MD PCP - General Internal Medicine 08/13/15 05/19/21 Juliet Torres MD PCP - General Internal Medicine 06/18/21 documented as of this encounter
--- OUTSIDE RECORDS SUMMARY | 2024-10-09 14:25 | XMS_ITS | Encounter Summary ---
Author Organization [facility] Address [address] [place] [address] Care Team Providers Care Retail Performance Coach Name Role Phone Rafaela-Shruthi Valencia MD Primary Care Provider Unavailable Jesika Kim MD Primary Care Provider UnavailSierra Haider MD Primary Care Provider Unavailable Cody Murcia MD Primary Care Provider Juliet Hoffman MD Primary Care Provider Unavailabl e Encounter Details Date Type Department Care Team Description 04/20/2010 Night Triage Doc Medical Records [address] [place] [address] Abstract, Provider Social History Tobacco Use Types Packs/Day Years Used Date Smoking Tobacco: Former Cigarettes Q uit: 04/07/2008 Alcohol Use Standard Drinks/Week Comments Yes 0 (1 standard drink = 0.6 oz pur e alcohol) socially Sex Assigned at Date Recorded Not on file Job Start Date Occupation Industry Not on file Not on file Not on file documented as of this encounter Plan of Treatment Not on file documented as of this encounter Visit Diagnoses Not on filedocumented in this encounter Care Teams Retail Performance Coach Relationship Specialty Start Date End Date Shruthi Flores MD PCP - General 04/19/0601/09 Jesika Kim MD PCP - General Family Practice 01/10/13 01/10/13 Sierra Edge MD PCP - General Internal Medicine 01/11/1308/12/15 Cody Murcia MD PCP - General Internal Medicine 08/13/15 05/19/21 Juliet Torres MD PCP - General Internal Medicine 06/18/21 documented as of this encounter
--- OUTSIDE RECORDS SUMMARY | 2024-10-09 14:25 | XMS_ITS | Encounter Summary ---
Author Organization [facility] Address [address] [place] [address] Care Team Providers Care Paper Bags Sewing Machine Operator Name Role Phone Sierra dEge MD Primary Care Provider Unavailable Cody Murcia MD Primary Care Provider Juliet Hoffman MD Primary Care Provider Unavailabl e Encounter Details Date Type Department Care Team Description 01/17/2014 Director Of Manufacturing Operations Report Medical Records [address] [place] [address] Michi Campos MD Social History Tobacco Use Types Packs/Day [...] on filedocumented in this encounter Care Teams Paper Bags Sewing Machine Operator Relationship Specialty Start Date End Date Sierra Edge MD PCP - General Internal Medicine 01/11/1308/12/15 Cody Murcia MD PCP - General Internal Medicine 08/13/15 05/19/21 Juliet Torres MD PCP - General Internal Medicine 06/18/21 documented as of this encounter
--- OUTSIDE RECORDS SUMMARY | 2024-10-09 14:25 | XMS_ITS | Encounter Summary ---
Author Organization [facility] Address [address] [place] [address] Care Team Providers Care Assistant Spa Director Name Role Phone Sierra Edge MD Primary Care Provider Unavailable Cody Murcia MD Primary Care Provider Juliet Hoffman MD Primary Care Provider Unavailabl e Encounter Details Date Type Department Care Team Description 06/18/2014 Pt. Non Urgent Medic al Question Adult Medicine [address] [address] Sierra Edge MD Social History Tobacco Use [...] Progress Notes * Suki Posey M.A. - 06/18/2014 1:14 PM EDTFrom: Barbara Harris To: Sierra Edge MD Sent: 06/18/2014 12:55 PM EDT Subject: handicap plaque I just wanted to let you know i received my plaque yesterday thank you documented in this encounter Plan of Treatment Not on file documented as of this encounter Visit Diagnoses Not on filedocumented in this encounter Care Teams Assistant Spa Director Relationship Specialty Start Date End Date Sierra Edge MD PCP - General Internal Medicine 01/11/1308/12/15 Cody Murcia MD PCP - General Internal Medicine 08/13/15 05/19/21 Juliet Torres MD PCP - General Internal Medicine 06/18/21 documented as of this encounter
--- OUTSIDE RECORDS SUMMARY | 2024-10-09 14:25 | XMS_ITS | Encounter Summary ---
Author Organization [facility] Address [facility] [place] [address] Care Team Providers Care Alteration Inspector Name Role Phone Juliet Torres MD Primary Care Provider Unavailabl e Encounter Details Date Type Department Care Team Description 12/01/2023 Release of Information Medical Records [address] [place] [id number] Abstract, Provider Social History Tobacco Use Types Packs/Day Years Used Date Smoking Tobacco: Former Smokeless Tobacco: Never Alcohol Use Standard Drinks/Week [...] on filedocumented in this encounter Care Teams Alteration Inspector Relationship Specialty Start Date End Date Juliet Torres MD PCP - General Internal Medicine 06/18/21 documented as of this encounter
--- OUTSIDE RECORDS SUMMARY | 2024-10-09 14:25 | XMS_ITS | Encounter Summary ---
Author Organization [facility] Address [address] [place] [address] Care Team Providers Care Hris Analyst Name Role Phone Juliet Torres MD Primary Care Provider Unavailabl e Encounter Details Date Type Department Care Team Description 07/02/2021 [facility] Records [facility] Medical [facility] [address] [place] [address] [place] [phone] Pierre Ghotra MD Social History Tobacco [...] have Coronavirus / COVID-19? No / Unsure 06/23/2021 1:18 PM EDT documented as of this encounter Plan of Treatment Not on file documented as of this encounter Visit Diagnoses Not on filedocumented in this encounter Care Teams Hris Analyst Relationship Specialty Start Date End Date Juliet Torres MD PCP - General Internal Medicine 06/18/21 documented as of this encounter
--- OUTSIDE RECORDS SUMMARY | 2024-10-09 14:25 | XMS_ITS | Clinical Summary ---
Author Organization [facility] Address [address] [place] [address] Care Team Providers Care Double Cutter Name Role Phone Juliet Torres MD Primary Care Provider Unavailabl e Allergies Active Allergy Reactions Severity Noted Date Comments Amoxicillin Trihydrate 01/20/2007 SORES IN MOUTH Benzyl Pzb-Hmamurrvajnciexi-Eykjtni in 01/20/2007 PRE-SEIZURE Meperidine Hcl Itching/Pruritus 01/20/2007 Hydromorphone Hcl Nausea and Vomiting 3 Tylenol With Codeine Nausea and Vomiting 2012 Medications Medication Sig Dispensed Refills Start Date End Date Status fluticasone 50 MCG/ACT nasal spray USE TWO SPRAY IN EACH NOSTRIL EVERY DAY 1 Bottle 3 05/29/2015 Active omeprazole (PRILOSEC OTC) 20 MG tablet Take 2 Tabs by mouth daily. 60 Tab 5 07/24/2015 Active ALBUTEROL SULFATE (PROAIR HFA) 108 (90 BASE) MCG/ACT Aero Soln Inhale 2 Puffs into the lungs every 4 hours as needed for Cough or Wheezing. 1 Inhaler 3 07/24/2015 Active loratadine (CLARITIN) 10 MG tablet Take 1 Tab by mouth daily. 30 Tab 3 07/24/2015 Active omeprazole (PRILOSEC) 40 MG capsule Take 40 mg by mouth Once. 0 04/30/2021 Active duloxetine (CYMBALTA) 30 MG capsule Take 30 mg by mouth once. 0 05/29/2021 Active FIBER OR Take 2 Capsules by mouth daily. 0 Active Black Lvhlql-ZgjRqamakf-El gnol (Estroven Menopause Relief) Cap Take 1 capsule by mouth daily. 0 Active CALCIUM OR Take 2 Tablets by mouth daily. 0 Active meloxicam (MOBIC) 15 MG tabletIndications:Pa in and swelling of left ankle,Inversion sprain of left ankle, initial encounter Take 1 tablet by mouth daily as needed for Pain (Take with food.) for up to 60 days. 30 tablet 1 08/07/2021 Active Active Problems Problem Noted Date Fibromyalgia 01/12/2013 left knee pain 03/04/2007 Overview: documented DJD of the Xray. Irritable bowel syndrome 07/06/2006 GERD - negative EGD 200807/06/2006 Overview: Normal upper GI endoscopy on PPI treatment 04/07/2009. Asthma 07/06/2006 ALLERGIC RHINITIS 07/06/2006 LUMBAGO- DJD- sees [facility] pain mgmt 07/06 DEPRESSION 07/06/2006 Immunizations Name Administration Dates Next Due Influenza (> 6 Months) 07/10/2013 Pneumoccoccal(Adult) Polysaccharide PPSV23 11/22 Tdap 08/21/2009 Family History Medical History Relation Name Comments Arthritis Maternal Grandmother CA Ovarian Maternal Grandmother Arthritis Mother OA CA Breast Negative Hx Relation Name Status Comments Maternal Grandmother Mother Social History Tobacco Use Types Packs/Day Years Used Date Smoking Tobacco: Former Smokeless Tobacco: Never Tobacco Cessation:Counseling Given: No Alcohol Use Standard Drinks/Week Comments Never 0 (1 standard drink = 0.6 oz pur e alcohol) 1-2 drinks per mo Sex Assigned at Date Recorded Not on file Job Start Date Occupation Industry Not on file Not on file Not on file Last Filed Vital Signs Vital Sign Reading Time Taken Comments Blood Pressure 122/72 06/23/2021 1:29 PM EDT Pulse 92 06/23/2021 1:29 PM EDT Temperature 36.4 ??C (97.6 ??F) 06/23/2021 1:29 PM ED T Respiratory Rate 15 07/24/2015 2:17 PM EST Oxygen Saturation 99% 11/13/2013 10:20 AM EST Inhaled Oxygen Concentration - - Weight 121.1 kg (267 lb) 09/07/2021 1:43 PM EST Height 167.6 cm (5' 6 ) 09/07/2021 1:43 PM EST Body Mass Index 43.09 09/07/2021 1:43 PM EST Plan of Treatment Health Maintenance Due Date Last Done Comments Covid-19 Vaccine (#1) 03/23/1971 HEPATITIS C SCREENING 1988 MAMMOGRAM 07/25/2015 07/25/2014, 09/13 (External Completion) CERVICAL CANCER SCREENING 09/13/20152012 (External Completion), 08/11/2010, 2008, Additional history exists BASELINE HEALTH EXAM 40-64 06/10/2016 06/10/2014, CHOLESTEROL SCREENING 06/10/2019 06/10/2014, 010 DTAP/TDAP/TD (2 - Td or Tdap) 08/21/2019 08/21/2009 COLON CANCER SCREENING 2020 SHINGLES VACCINE (1 of 2) 2020 INFLUENZA (#1) 2024 07/10/2013 BMI CHECK/ADVISE 09/12/2024 06/23/2021, 08/2021, 03/28/2015, Additional history exists DEPRESSION SCREENING/FOLLOWUP 09/12/2024, 07/24/2015, 11/22/2013, Additional history exists SOCIAL NEEDS SCREENING 09/12/2024 PNEUMOCOCCAL VACCINE FOR HIG H RISK PATIENTS (#2) 2035 11/22/2013 Care Teams Double Cutter Relationship Specialty Start Date End Date Juliet Torres MD PCP - General Internal Medicine 06/18/21
--- OUTSIDE RECORDS SUMMARY | 2024-10-09 14:25 | XMS_ITS | Encounter Summary ---
Author Organization [facility] Address [address] [place] [address] Care Team Providers Care Drill Press Operator Name Role Phone Sierra Edge MD Primary Care Provider Unavailable Cody Murcia MD Primary Care Provider Juliet Hoffman MD Primary Care Provider Unavailabl e Encounter Details Date Type Department Care Team Description 06/17/2014 Pt. Non Urgent Medic al Question Adult Medicine [address] [address] Sierra Edge MD Social History Tobacco Use [...] Progress Notes * Suki Posey M.A. - 06/17/2014 1:49 PM EDTFrom: Barbara Harris To: Sierra Edge MD Sent: 06/17/2014 1:42 PM EDT Subject: handicap placque / pain in right foot I am writing again to ask about the renewal of my handicap plaque , i brought in the paperwork backin april and i just want to know if it was filled out and sent in to the registry as i have not yet received it. I did send a message last week but i did not hear back from anyone last week so i am writing again so if someone could please get back to me. Also i am still having pain in my right foot the has been some tingling and burning as well , i still can't put a shoe on my foot due to the swelling and pain. documented in this encounter Plan of Treatment Not on file documented as of this encounter Visit Diagnoses Not on filedocumented in this encounter Care Teams Drill Press Operator Relationship Specialty Start Date End Date Sierra Edge MD PCP - General Internal Medicine 01/11/1308/12/15 Cody Murcia MD PCP - General Internal Medicine 08/13/15 05/19/21 Juliet Torres MD PCP - General Internal Medicine 06/18/21 documented as of this encounter
--- OUTSIDE RECORDS SUMMARY | 2024-10-09 14:26 | XMS_ITS | Encounter Summary ---
Author Organization [facility] Address [address] [place] [address] Care Team Providers Care Specialized Language Instructor Name Role Phone Rafaela-Shruthi Valencia MD Primary Care Provider Unavailable Jesika Kim MD Primary Care Provider UnavailSierra Haider MD Primary Care Provider Unavailable Cody Murcia MD Primary Care Provider Juliet Hoffman MD Primary Care Provider Unavailabl e Encounter Details Date Type Department Care Team Description 09/15/2011 Hospital Medical Records [address] [place] [address] Felicia Alberto Social History Tobacco Use Types Packs/Day Years [...] on filedocumented in this encounter Care Teams Specialized Language Instructor Relationship Specialty Start Date End Date Shruthi Flores MD PCP - General 04/19/0601/09 Jesika Kim MD PCP - General Family Practice 01/10/13 01/10/13 Sierra Edge MD PCP - General Internal Medicine 01/11/1308/12/15 Cody Murcia MD PCP - General Internal Medicine 08/13/15 05/19/21 Juliet Torres MD PCP - General Internal Medicine 06/18/21 documented as of this encounter
--- OUTSIDE RECORDS SUMMARY | 2024-10-09 14:26 | XMS_ITS | Encounter Summary ---
Author Organization [facility] Address [address] [place] [address] Care Team Providers Care Economic Research Assistant Name Role Phone Sierra Edge MD Primary Care Provider Unavailable Cody Murcia MD Primary Care Provider Juliet Hoffman MD Primary Care Provider Unavailabl e Encounter Details Date Type Department Care Team Description 07/22/2014 Fretted Instrument Inspector Report Medical Records [address] [place] [address] Michi Campos MD Social History Tobacco Use [...] on filedocumented in this encounter Care Teams Economic Research Assistant Relationship Specialty Start Date End Date Sierra Edge MD PCP - General Internal Medicine 01/11/1308/12/15 Cody Murcia MD PCP - General Internal Medicine 08/13/15 05/19/21 Juliet Torres MD PCP - General Internal Medicine 06/18/21 documented as of this encounter
--- OUTSIDE RECORDS SUMMARY | 2024-10-09 14:26 | XMS_ITS | Encounter Summary ---
Author Organization [facility] Address [address] [place] [address] Care Team Providers Care Leadite Heater Name Role Phone Sierra Edge MD Primary Care Provider Unavailable Cody Murcia MD Primary Care Provider Juliet Hoffman MD Primary Care Provider Unavailabl e Encounter Details Date Type Department Care Team Description 05/09/2013 Business Planner Report Medical Records [address] [place] [address] Michi Campos MD Social History Tobacco Use [...] on filedocumented in this encounter Care Teams Leadite Heater Relationship Specialty Start Date End Date Sierra Edge MD PCP - General Internal Medicine 01/11/1308/12/15 Cody Murcia MD PCP - General Internal Medicine 08/13/15 05/19/21 Juliet Torres MD PCP - General Internal Medicine 06/18/21 documented as of this encounter
--- OUTSIDE RECORDS SUMMARY | 2024-10-09 14:26 | XMS_ITS | Encounter Summary ---
Author Organization [facility] Address [address] [place] [address] Care Team Providers Care Terrazzo Polisher Helper Name Role Phone Sierra Edge MD Primary Care Provider Unavailable Cody Murcia MD Primary Care Provider Juliet Hoffman MD Primary Care Provider Unavailabl e Reason for Visit * Reason Onset Date Comments PT-1 06/13/2015 Encounter Details Date Type Department Care Team Description 06/13/2015 Telephone Adult Medicine - [address] [address] Sierra Edge MD PT-1 Social History Tobacco Use Types Packs/Day Years [...] encounter Miscellaneous Notes * Telephone Encounter - Cecile Weiss - 06/18/2015 9:01 AM EDT This patient has [facility] health[facility], nop PT-1 form should be completed by [facility] office, there are directions in the smart text at the top to instruct patients with [facility] to call the [facility] line to obtain a PT-1: Local # for [facility] PT-1 request: [phone] (Juana Gamino) Toll free #: * Telephone Encounter - Rosa Taylor - 06/17/2015 11:02 AM EDT LMOVM for pt to call back and confirm PT 1 * Telephone Encounter - Maddie Carbajal M.A. - 06/17/2015 10:51 AM EDT Went to submit online- there is no info regarding what this is for. Specialty? Phone #? Dr? Name ofplace? Please gather info. thanks * Telephone Encounter - Rosa Taylor - 06/16/2015 4:52 PM EDT [id number] * Telephone Encounter - Maddie Carbajal M.A. - 06/16/2015 4:38 PM EDT MH # needs to begin with a 1 * Telephone Encounter - Bee Castro - 06/13/2015 12:22 PM EDT Effective 09/09/14 ALL [facility] patients requesting a PT1 form be completed must call this direct line or the 800# on their insurance card. [facility] will no longer be completing these forms, [facility] staff will. Member Services at [facility] will give the patient a dedicated PT1 form telephone #. All other [facility] products proceed as usual. Patients [facility] Pt. demographics and [facility] Ins information verified YES Is this a NEW request or a Renewal? renewal Name of treating facility: [facility] Mailing address: [address] [place] [id number] Is the mailing address accurate? YES. If no, update all screens in Registration Has [facility] Insurance coverage been verified? YES Name (first & last) of treating provider Unknown to [facility] Reason the patient is seeing the above provider: unknown to [facility] Address[facility]zip [facility] [address] Phone # of treating provider n/a What specialty is this provider? n/a How often they see them 1 visits per week, 4visits per month How long will they require these services 52 weeks, 12 Months When is the visit scheduled? unknown Medical reason why they are unable to use public transportation: Patient Active Problem List Diagnosis Code ??? IRRITABLE BOWEL SYNDROME K58.9 ??? GERD - negative EGD 2009 R12 ??? ASTHMA - mild intermitt, not on controller meds J45.909 ??? ALLERGIC RHINITIS J30.9 ??? LUMBAGO- DJD- sees [facility] pain mgmt M54.5 ??? DEPRESSION F32.9 ??? left knee pain M25.569 ??? Fibromyalgia M79.7 Do they need a wheelchair van: NO Do they need an escort to accompany them? NO Will they have an alternative pick-up address? NO Does the patient have a service animal? NO PT DOES NOT NEED RELEASE OF INFORMATION SIGNED documented in this encounter Plan of Treatment Not on file documented as of this encounter Visit Diagnoses Not on filedocumented in this encounter Care Teams Terrazzo Polisher Helper Relationship Specialty Start Date End Date Sierra Edge MD PCP - General Internal Medicine 01/11/1308/12/15 Cody Murcia MD PCP - General Internal Medicine 08/13/15 05/19/21 Juliet Torres MD PCP - General Internal Medicine 06/18/21 documented as of this encounter
--- OUTSIDE RECORDS SUMMARY | 2024-10-09 14:26 | XMS_ITS | Encounter Summary ---
Author Organization [facility] Address [address] [place] [address] Care Team Providers Care Correctional Facility Nurse Name Role Phone Sierra Edge MD Primary Care Provider Unavailable Cody Murcia MD Primary Care Provider Juliet Hoffman MD Primary Care Provider Unavailabl e Encounter Details Date Type Department Care Team Description 11/21/2014 Outpatient Physical Therapist Assistant Report Medical Records [address] [place] [address] Mateo Zeng Social History Tobacco Use Types Packs/Day Years [...] on filedocumented in this encounter Care Teams Correctional Facility Nurse Relationship Specialty Start Date End Date Sierra Edge MD PCP - General Internal Medicine 01/11/1308/12/15 Cody Murcia MD PCP - General Internal Medicine 08/13/15 05/19/21 Juliet Torres MD PCP - General Internal Medicine 06/18/21 documented as of this encounter
--- OUTSIDE RECORDS SUMMARY | 2024-10-09 14:26 | XMS_ITS | Encounter Summary ---
Author Organization [facility] Address [address] [place] [address] Care Team Providers Care Billing Representative Name Role Phone Sierra Edge MD Primary Care Provider Unavailable Cody Murcia MD Primary Care Provider Juliet Hoffman MD Primary Care Provider Unavailabl e Encounter Details Date Type Department Care Team Description 08/06/2015 [facility] Medical Records [address] [place] [address] Anya Luque PA-C Social History Tobacco Use Types Packs/Day Years [...] on filedocumented in this encounter Care Teams Billing Representative Relationship Specialty Start Date End Date Sierra Edge MD PCP - General Internal Medicine 01/11/1308/12/15 Cody Murcia MD PCP - General Internal Medicine 08/13/15 05/19/21 Juliet Torres MD PCP - General Internal Medicine 06/18/21 documented as of this encounter
--- OUTSIDE RECORDS SUMMARY | 2024-10-09 14:26 | XMS_ITS | Encounter Summary ---
Author Organization [facility] Address [address] [place] [address] Care Team Providers Care Dev Manager Name Role Phone Sierra Edge MD Primary Care Provider Unavailable Cody Murcia MD Primary Care Provider Juliet Hoffman MD Primary Care Provider Unavailabl e Encounter Details Date Type Department Care Team Description 06/25/2015 Vending Machine Repairer Report Medical Records [address] [place] [address] Michi Campos MD Social History Tobacco Use [...] on filedocumented in this encounter Care Teams Dev Manager Relationship Specialty Start Date End Date Sierra Edge MD PCP - General Internal Medicine 01/11/1308/12/15 Cody Murcia MD PCP - General Internal Medicine 08/13/15 05/19/21 Juliet Torres MD PCP - General Internal Medicine 06/18/21 documented as of this encounter
--- OUTSIDE RECORDS SUMMARY | 2024-10-09 14:26 | XMS_ITS | Encounter Summary ---
Author Organization [facility] Address [address] [place] [address] Care Team Providers Care Bale Opener Name Role Phone Sierra Edge MD Primary Care Provider Unavailable Cody Murcia MD Primary Care Provider Juliet Hoffman MD Primary Care Provider Unavailabl e Encounter Details Date Type Department Care Team Description 02/05/2014 Solar Installer Pv Report Medical Records [address] [place] [address] Michi Campos MD Social History Tobacco Use [...] on filedocumented in this encounter Care Teams Bale Opener Relationship Specialty Start Date End Date Sierra Edge MD PCP - General Internal Medicine 01/11/1308/12/15 Cody Murcia MD PCP - General Internal Medicine 08/13/15 05/19/21 Juliet Torres MD PCP - General Internal Medicine 06/18/21 documented as of this encounter
--- OUTSIDE RECORDS SUMMARY | 2024-10-09 14:26 | XMS_ITS | Encounter Summary ---
Author Organization [facility] Address [address] [place] [address] Care Team Providers Care Associate Director Of Biostatistics Name Role Phone Sierra Edge MD Primary Care Provider Unavailable Cody Murcia MD Primary Care Provider Juliet Hoffman MD Primary Care Provider Unavailabl e Encounter Details Date Type Department Care Team Description 03/31/2015 Business Support Professional Report Medical Records [address] [place] [address] Michi Campos MD Social History Tobacco Use [...] on filedocumented in this encounter Care Teams Associate Director Of Biostatistics Relationship Specialty Start Date End Date Sierra Edge MD PCP - General Internal Medicine 01/11/1308/12/15 Cody Murcia MD PCP - General Internal Medicine 08/13/15 05/19/21 Juliet Torres MD PCP - General Internal Medicine 06/18/21 documented as of this encounter
--- OUTSIDE RECORDS SUMMARY | 2024-10-09 14:26 | XMS_ITS | Encounter Summary ---
Author Organization [facility] Address [address] [place] [address] Care Team Providers Care Transmission Assembler Name Role Phone Sierra Edge MD Primary Care Provider Unavailable Cody Murcia MD Primary Care Provider Juliet Hoffman MD Primary Care Provider Unavailabl e Encounter Details Date Type Department Care Team Description 04/10/2014 Grinder And Plater Report Medical Records [address] [place] [address] Michi Campos MD Social History Tobacco Use [...] on filedocumented in this encounter Care Teams Transmission Assembler Relationship Specialty Start Date End Date Sierra Edge MD PCP - General Internal Medicine 01/11/1308/12/15 Cody Murcia MD PCP - General Internal Medicine 08/13/15 05/19/21 Juliet Torres MD PCP - General Internal Medicine 06/18/21 documented as of this encounter
--- OUTSIDE RECORDS SUMMARY | 2024-10-09 14:26 | XMS_ITS | Encounter Summary ---
Author Organization [facility] Address [address] [place] [address] Care Team Providers Care Painter And Decorator Apprentice Name Role Phone Sierra Edge MD Primary Care Provider Unavailable Cody Murcia MD Primary Care Provider Juliet Hoffman MD Primary Care Provider Unavailabl e Encounter Details Date Type Department Care Team Description 11/06/2013 Metal Base Blocker Report Medical Records [address] [place] [address] Michi Campos MD Social History Tobacco Use [...] on filedocumented in this encounter Care Teams Painter And Decorator Apprentice Relationship Specialty Start Date End Date Sierra Edge MD PCP - General Internal Medicine 01/11/1308/12/15 Cody Murcia MD PCP - General Internal Medicine 08/13/15 05/19/21 Juliet Torres MD PCP - General Internal Medicine 06/18/21 documented as of this encounter
--- OUTSIDE RECORDS SUMMARY | 2024-10-09 14:26 | XMS_ITS | Encounter Summary ---
Author Organization [facility] Address [address] [place] [address] Care Team Providers Care Stone Repairer Name Role Phone Sierra Edge MD Primary Care Provider Unavailable Cody Murcia MD Primary Care Provider Juliet Hoffman MD Primary Care Provider Unavailabl e Encounter Details Date Type Department Care Team Description 08/23/2014 Head Filter Tank Tender Helper Report Medical Records [address] [place] [address] Mateo Zeng Social History Tobacco Use Types [...] on filedocumented in this encounter Care Teams Stone Repairer Relationship Specialty Start Date End Date Sierra Edge MD PCP - General Internal Medicine 01/11/1308/12/15 Cody Murcia MD PCP - General Internal Medicine 08/13/15 05/19/21 Juliet Torres MD PCP - General Internal Medicine 06/18/21 documented as of this encounter
--- OUTSIDE RECORDS SUMMARY | 2024-10-09 14:26 | XMS_ITS | Encounter Summary ---
Author Organization [facility] Address [address] [place] [address] Care Team Providers Care Steel Post Installer Name Role Phone Sierra Edge MD Primary Care Provider Unavailable Cody Murcia MD Primary Care Provider Juliet Hoffman MD Primary Care Provider Unavailabl e Encounter Details Date Type Department Care Team Description 04/26/2013 Plant Control Operator Report Medical Records [address] [place] [address] Valerie Riggins NP Social History Tobacco Use Types Packs/Day Years [...] on filedocumented in this encounter Care Teams Steel Post Installer Relationship Specialty Start Date End Date Sierra Edge MD PCP - General Internal Medicine 01/11/1308/12/15 Cody Murcia MD PCP - General Internal Medicine 08/13/15 05/19/21 Juliet Torres MD PCP - General Internal Medicine 06/18/21 documented as of this encounter
--- OUTSIDE RECORDS SUMMARY | 2024-10-09 14:26 | XMS_ITS | Encounter Summary ---
Author Organization [facility] Address [address] [place] [address] Care Team Providers Care Vendor Manager Name Role Phone Sierra Edge MD Primary Care Provider Unavailable Cody Murcia MD Primary Care Provider Juliet Hoffman MD Primary Care Provider Unavailabl e Encounter Details Date Type Department Care Team Description 08/07/2013 Dermatologist And Dermatopathologist Report Medical Records [address] [place] [address] Michi Campos MD Social History Tobacco Use [...] on filedocumented in this encounter Care Teams Vendor Manager Relationship Specialty Start Date End Date Sierra Edge MD PCP - General Internal Medicine 01/11/1308/12/15 Cody Murcia MD PCP - General Internal Medicine 08/13/15 05/19/21 Juliet Torres MD PCP - General Internal Medicine 06/18/21 documented as of this encounter
--- OUTSIDE RECORDS SUMMARY | 2024-10-09 14:26 | XMS_ITS | Encounter Summary ---
Author Organization [facility] Address [address] [place] [address] Care Team Providers Care Community Health Nurse Staff Name Role Phone Sierra Edge MD Primary Care Provider Unavailable Cody Murcia MD Primary Care Provider Juliet Hoffman MD Primary Care Provider Unavailabl e Encounter Details Date Type Department Care Team Description 12/24/2014 Pt. Non Urgent Medic al Question Adult Medicine - [address] [address] Sierra Edge MD Social History Tobacco Use [...] as of this encounter Progress Notes * Shanae Montemayor L.P.N. - 12/24/2014 3:36 PM EDTFrom: Barbara Harris To: Sierra Edge MD Sent: 12/24/2014 3:21 PM EDT Subject: help I need to set up an appointment to have a sit down and talk with her about some issues i am having with some of my healthcare and pain management and things of that nature. thank you/ [phone] documented in this encounter Plan of Treatment Not on file documented as of this encounter Visit Diagnoses Not on filedocumented in this encounter Care Teams Community Health Nurse Staff Relationship Specialty Start Date End Date Sierra Edge MD PCP - General Internal Medicine 01/11/1308/12/15 Cody Murcia MD PCP - General Internal Medicine 08/13/15 05/19/21 Juliet Torres MD PCP - General Internal Medicine 06/18/21 documented as of this encounter
--- OUTSIDE RECORDS SUMMARY | 2024-10-09 14:26 | XMS_ITS | Encounter Summary ---
Author Organization [facility] Address [address] [place] [address] Care Team Providers Care Grant Manager Name Role Phone Sierra Edge MD Primary Care Provider Unavailable Cody Murcia MD Primary Care Provider Juliet Hoffman MD Primary Care Provider Unavailabl e Encounter Details Date Type Department Care Team Description 12/24/2013 Pt. Non Urgent Medic al Question Adult Medicine [address] [address] Sierra Edge MD Social History Tobacco Use [...] as of this encounter Progress Notes * Catina Grullon M.A. - 12/24/2013 4:20 PM EDTFrom: RAFAEL HUFF To: Sierra Edge MD Sent: TueDec 24, 2013 12:28 PM Subject: panic and anxiety attacks I am sending this email as i dont have many minutes left on my phone , i have been going through alot of stressful times as of late and i have suffered some mild panic attacks but my anxiety is through the roof , i have alot of financial concerns right now and i am having some major issues with my teenage daughter its to the point i dont know how much more i can take i can't sleep even on the sleeping medicine my mind never stops i cry all the time i have not been able to see my therapist in a few weeks do to the financial issues which has left me without a car everyone keeps telling me to calm down and relax but i can't so i dont know what else i can do if there is anything you can suggesti would appreciate it. thank you in advance Rafael Huff documented in this encounter Plan of Treatment Not on file documented as of this encounter Visit Diagnoses Not on filedocumented in this encounter Care Teams Grant Manager Relationship Specialty Start Date End Date Sierra Edge MD PCP - General Internal Medicine 01/11/1308/12/15 Cody Murcia MD PCP - General Internal Medicine 08/13/15 05/19/21 Juliet Torres MD PCP - General Internal Medicine 06/18/21 documented as of this encounter
--- OUTSIDE RECORDS SUMMARY | 2024-10-09 14:26 | XMS_ITS | Encounter Summary ---
Author Organization [facility] Address [address] [place] [address] Care Team Providers Care Catalogue Maker Name Role Phone Sierra Edge MD Primary Care Provider Unavailable Cody Murcia MD Primary Care Provider Juliet Hoffman MD Primary Care Provider Unavailabl e Reason for Visit * Reason Onset Date Comments Form 12/25/2013 pt 1 form Encounter Details Date Type Department Care Team Description 12/25/2013 Telephone Adult Medicine [address] [address] Sierra Edge MD Form (pt 1 form) Social History Tobacco Use Types Packs/Day Years [...] encounter Miscellaneous Notes * Telephone Encounter - Krista Blair M.A. - 12/25/2013 4:37 PM EDT Pt 1 form to be submitted online . Patient will be notified if denied. * Telephone Encounter - Nayeli Hendrix - 12/25/2013 2:33 PM EDT Patients [place] [facility] Pt. demographics and [facility] Ins information verified YES Mailing address if different from home address NO Name of treating provider Sierra Edge Address/zip for treating provider [address] [place] [id number] Phone # of treating provider [phone] What specialty is this provider? Internal Medicine For what reason do they see this provider(s) Routine health care How often they see them 1 visits per week, 4 visits per month How long will they require these services 52 weeks, 12 Months When is the visit scheduled? 12-28-13 Medical reason why they are unable to use public transportation: Patient Active Problem List Diagnosis Code ??? IRRITABLE BOWEL SYNDROME 564.1 ??? GERD - negative EGD 2009 787.1 ??? ASTHMA - mild intermitt, not on controller meds 493.90 ??? ALLERGIC RHINITIS 477.9 ??? LUMBAGO- DJD- sees [facility] pain mgmt 724.2 ??? DEPRESSION 311 ??? left knee pain 719.46 ??? Fibromyalgia 729.1 Do they need a wheelchair van: NO Do they need an escort to accompany them? NO Will they have an alternative pick-up address? NO PT DOES NOT NEED RELEASE OF INFORMATION SIGNED documented in this encounter Plan of Treatment Not on file documented as of this encounter Visit Diagnoses Not on filedocumented in this encounter Care Teams Catalogue Maker Relationship Specialty Start Date End Date Sierra Edge MD PCP - General Internal Medicine 01/11/1308/12/15 Cody Murcia MD PCP - General Internal Medicine 08/13/15 05/19/21 Juliet Torres MD PCP - General Internal Medicine 06/18/21 documented as of this encounter
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
== END 2024-10-09 13:58 | disposition home or self-care (01) ==
PROVIDERS: PCP Internal Medicine; Visit Provider Nurse Practitioner Family
DX: K57.90 Diverticulosis of intestine, part unspecified, without perforation or abscess without bleeding (principal); D36.9 Benign neoplasm, unspecified site; K58.1 Irritable bowel syndrome with constipation; K21.9 Gastro-esophageal reflux disease without esophagitis; K52.9 Noninfective gastroenteritis and colitis, unspecified; R11.2 Nausea with vomiting, unspecified; K59.1 Functional diarrhea
CPT/HCPCS: 99214; G2211

== ENCOUNTER → 2024-10-09 14:04 | Outpatient (BNV) | payer OTHER, SELFPAY | PROVIDERS: Absent Provider Nurse Practitioner Family; PCP Internal Medicine; Visit Provider Radiology Diagnostic Radiology | DX: M25.551 Pain in right hip (principal) | CPT/HCPCS: 73521 ==

== ENCOUNTER → 2024-10-18 13:29 | Outpatient (AMB) | payer OTHER, SELFPAY ==
--- NOTE | 2024-10-18 13:30 | A.OFFVIS_ITS ---
Vital Signs 10/18/24 13:30 Height 5 ft 7 in Weight 272 lb BMI 42.6 Intake Visit Reasons: ULTRASOUND TECHNOL/Pain Aly referral for Intake Note: ULTRASOUND TECHNOL/ for LE coldness, Left worse than Right LE, started worsening 2 yrs ago, Left LE from the knee down coldness and numbness. Pt states she has been seen by neuro & Pain aly. Pt states she also gets pain in the area of coldness. Imaging Account Manager Required: No Accompanied by: Spouse Allergies codeine [Tylenol-Codeine] Allergy (Severe, Verified 10/18/24 13:34) Vomiting compazine Allergy (Severe, Verified 10/18/24 13:34) Seizure hydromorphone [From DILAUDID] Allergy (Severe, Verified 10/18/24 13:34) VOMITING,DIZZY meperidine [Demerol] Allergy (Severe, Verified 10/18/24 13:34) Rash prednisone Allergy (Severe, Verified 10/18/24 13:34) skin blistering amoxicillin [AMOXICILLIN] Allergy (Intermediate, Verified 10/18/24 13:34) HIVES, THRUSH naproxen Adverse Reaction (Intermediate, Verified 10/18/24 13:34) Family History of Kidney Disease HPI HPI ULTRASOUND TECHNOL/Pain Aly referral for : Details: Barbara, a pleasant 54-year-old female patient, is presenting today on a referral from pain management for concerns for possible venous insufficiency. She has seen multiple providers about concerns of left more than right freezing cold foot that has now progressing up her leg on the lateral aspect to her knee. She states this has been going on for approximately 10 years now. She now states that her right foot has been getting the same sensation for the last approximately 2 years. She states she has not get the sensation up her leg like she does with her left. She states she does get some heaviness in her feet but not in her legs. She states it usually takes a long time for the sensation to go away in her feet and for her feet to feel warm again. She does state that she thinks it is worse in the wintertime. She can not state times where it happens more than others, like after walking, resting, or any physical activity. She denies any discoloration of her feet. There is no history of blood clots or PE. There was no family history of any blood clotting disorders. She states her mother did have COPD and congestive heart failure but no other significant heart history. She is a former smoker but is not a diabetic. She states she does get the heaviness and coldness in her feet when she is walking or standing for longer periods of time. [facility] Medical History Neck Pain Arm numbness left Neck pain Concussion Numbness and tingling in left arm Diverticulosis Tubular adenoma Osteoarthritis of left knee Chronic GERD Morbid obesity IBS (irritable bowel syndrome) Depression Asthma Anxiety disorder Chronic back pain Neuropathy delivery delivered Cholecystitis Fibromyalgia Arthritis Surgical History History of esophagogastroduodenoscopy (EGD) H/O colonoscopy H/O knee surgery H/O oophorectomy Hx of section Family History Maternal Grandmother Ovarian ca Sister Slow to wake up after anesthesia Other Substance use disorder Social History Household Members: Spouse Housing: House Are you a primary urgent care physician assistant to a significant other at home: No Do you presently have visiting nurse or other home services: No Alcohol intake: current Alcohol intake frequency: holidays/special occasions only Alcohol type: beer Comment: COUNTS CORRECT Patient Tobacco Use Status: Former Tobacco user Tobacco use type: Cigarette Years Smoked: 15 years e-Cigarette/Vaping Use: Never Used Substance Use Type: Marijuana Advance Directives Date on File: 04/13/23 service: No 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al status: unemployed 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 Cognitive needs: No Hearing needs: No Vision needs: No Female Reproductive History Menstrual Age of Menarche: 12 Review of Systems Const Reports as per HPI and Denies weakness ENT Reports Normal hearing present and Denies dizziness Card Reports as per HPI, Denies chest pain, Denies chest pain at rest, Denies chest pain with activity, Denies dyspnea and Denies dyspnea on exertion Resp Reports as per HPI, Denies cough, Denies dyspnea and Denies dyspnea on exertion GI Reports as per HPI, Denies abdominal pain, Denies nausea and Denies vomiting Musc Denies numbness Skin/Breast Reports as per HPI, Denies erythema and Denies wounds Neuro Reports Normal hearing present, Denies dizziness, Denies numbness, Denies Sensory deficit (Neuro) and Denies weakness Psych Reports no additional complaints Endo Reports no additional complaints Physical Exam Vital Signs: BMI result Body Mass Index 42.6 Const General: healthy appearing and no acute distress Orientation/consciousness: patient oriented x3 HEENT Head: Yes normal to inspection Ears: hearing grossly normal bilaterally Mouth: Normal oral and palatal mucosa present Resp Effort & Inspection: normal respiratory effort and able to speak in complete sentences Auscultation: clear to auscultation bilaterally Cardio Jugular venous distension: no JVD Rate: regular rate Rhythm: regular rhythm Heart sounds: S1 normal heart sound present and S2 normal heart sound present Bruits: no abdominal aortic bruits, no carotid bruits, no femoral bruits and no renal bruits Peripheral pulses: Peripheral pulses 2+ throughout GI Inspection: Yes normal to inspection Palpation (GI): No Abdominal aortic bruit present Skin General skin exam: no rashes or lesions noted Wounds: no wounds Hair: normal Neuro General: patient oriented x3 Cranial nerves: Yes Normal hearing present Cognition (Neuro): normal cognition Gait exam (Neuro): Normal gait present Motor exam (neuro): 5/5 motor strength present throughout Sensory Exam: No Sensory deficit (Neuro) Extrem Other: Left lower extremity: Foot is cold from mid foot to the toes. Faint but palpable DP pulses. Cap refill >5 seconds. Slight discoloration of the toes. Trace peripheral edema noted. Right lower extremity: Tips of toes cold. Faint but palpable DP pulses. Cap refill appx 3 seconds. Trace peripheral edema noted. General: Yes normal to inspection, Yes full ROM, Yes capillary refill normal and Yes normal gait Assessment & Plan Assessment & Plan (1) Peripheral artery disease: Code(s): I73.9 - Peripheral vascular disease, unspecified Category: Medical Plan: Barbara is presenting today for concerns cold left foot that has been going on for 10 years progressing up to the knee and also now her right foot for the last 2 years. She has seen multiple doctors for this and was referred to us from pain management for vascular assessment. Due to the symptoms and the physical exam findings, we will be ordering an arterial duplex ultrasound with ABIs. She also has a history of smoking, which puts her at risk for peripheral artery disease. She was able to ask questions about the testing as well as what the testing can mean if there was anything found in the ultrasound. I was able to answer all her questions. We will have her follow up after the ultrasound. Thank you for allowing us to participate in the patient's care. If there are any questions or concerns, please do not hesitate to reach out to us. Orders: Orders US arterial duplex LE 1 Week I73.9 - Peripheral vascular disease, unspecifi ed Coding Level of Care Code New Pt Level 4 (67428) Diagnoses Peripheral artery disease I73.9
== END | disposition home or self-care (01) ==
PROVIDERS: PCP Internal Medicine; Visit Provider Surgery Vascular Surgery
CPT/HCPCS: 99204

== ENCOUNTER → 2024-10-18 13:29 | Outpatient (BNVA) | payer OTHER, SELFPAY | PROVIDERS: PCP Internal Medicine; Visit Provider Surgery Vascular Surgery | DX: I73.9 Peripheral vascular disease, unspecified (principal); Z87.891 Personal history of nicotine dependence | CPT/HCPCS: 99202 ==

== ENCOUNTER 2024-10-26 13:14 | Outpatient (AMB) | payer OTHER, SELFPAY ==
[2024-10-26 13:20] VITALS: BP 122/76; PULSE 107; O2SAT 97; BMI 43.6
--- NOTE | 2024-10-26 13:20 | MHC.PC.OV ---
Vital Signs 10/26/24 13:20 Height 5 ft 7 in Weight 278 lb 6 oz BMI 43.6 BP 122/76 Blood Pressure Location Lt brachial Position Sitting Pulse 107 H Pulse Source Pulse Oximeter Pulse Oximetry (%) 97 Oxygen Delivery Method Room Air Intake Visit Reasons: ED F/U Allergies codeine [Tylenol-Codeine] Allergy (Severe, Verified 10/26/24 13:22) Vomiting compazine Allergy (Severe, Verified 10/26/24 13:22) Seizure hydromorphone [From DILAUDID] Allergy (Severe, Verified 10/26/24 13:22) VOMITING,DIZZY meperidine [Demerol] Allergy (Severe, Verified 10/26/24 13:22) Rash prednisone Allergy (Severe, Verified 10/26/24 13:22) skin blistering amoxicillin [AMOXICILLIN] Allergy (Intermediate, Verified 10/26/24 13:22) HIVES, THRUSH naproxen Adverse Reaction (Intermediate, Verified 10/26/24 13:22) Family History of Kidney Disease Medication List - Last Reconciled 10/26/24 by Juliet Torres MD amitriptyline mg PO cane quad cane celecoxib 200 mg PO BID cyclobenzaprine 10 mg PO BID PRN duloxetine mg PO fluticasone propionate 50 mcg/actuation 1 spray intranasal BID hydrocodone-acetaminophen 5-325 mg 1 tab PO .qhs PRN 30 days loratadine 10 mg PO DAILY 90 days lorazepam 0.5 mg PO DAILY PRN methylcellulose (laxative) (Citrucel) 500 mg PO DAILY metoclopramide HCl (Reglan) 5 mg PO Q8-10H omeprazole 40 mg PO DAILY@0630 tolterodine (Detrol) 2 mg PO BID 90 days Ventolin HFA 90 mcg/actuation (albuterol sulfate) 2 puffs inhalation Q6H PRN 90 days NS Tobacco use date assessed: 10/26/24 Dental Screening Dental Screen Date: 10/26/24 Did you have a dental visit in the last 12 months?: Yes Did you have a dental problem in the last 6 months where you did not have access to dental care?: No Was dental information given to patient?: Patient has dentist HPI ED F/U HPI Details 54-year-old female past medical history significant for obesity, IBS, anxiety, vertigo iron-deficiency anemia, overactive bladder, diverticulosis presented to [facility] on 05 of October for evaluation of left-sided abdominal pain. Pain started 3 days prior to arrival with associated nausea vomiting and diarrhea Patient is established with gastroenterology [facility] Her abdominal exam in emergency room revealed no rebound tenderness patient was having guarding to palpation left upper and lower abdomen CT scan of abdomen shows nonspecific colitis, no evidence of diverticulitis. Patient was treated with Cipro and Flagyl In emergency room her GFR was 57 which has improved from 49 May of last year Her liver enzymes were slightly elevated at 41 AST and 66 ALT, they were normal in May of last year, lipase level was 7 After evaluation patient was discharged home - Colitis: Currently under dietary management with low-FODMAP, gluten-free, and dairy-free diet following recommendations from the accounts payable processor, feeling much better No more abdominal pain back to baseline - Dermatitis: Present on the nose, being managed with a topical ointment and stronger medication pending from the pharmacy. Pulmonology Technician follow-up scheduled in two weeks. - Chronic neck pain Pain: Scheduled for radiofrequency ablation on the left side on November 16. Patient is requesting few tablets of Percocet which I have sent for her - Anxiety: Occasionally managed with lorazepam, reported well-controlled at present. - Vascular Issues: Scheduled for a vascular ultrasound due to symptoms of cold sensitivity suggesting potential peripheral vascular involvement. Problem List - s/p Colitis - Dermatitis of the nose - Anxiety - Chronic Pain - Peripheral Vascular Disease Patient Instructions - Continue medication as previously prescribed. - Attend the scheduled follow-up appointment with the truck dock material mover in two weeks. - Prepare for the radiofrequency ablation procedure scheduled for November 16, with understanding it will be conducted on the left side. - Adhere to the prescribed dietary modifications including gluten-free, dairy-free, and low-FODMAP diet. - Utilize lorazepam as needed for anxiety; limit usage to episodes of high anxiety. - be aware of the side effects of Percocet do not drive or work with machine while taking this medication for pain Review of Systems - General: No fever no chills - Neurological: No headaches no dizziness - Ear nose throat: No sore throat no hearing difficulty no ear pain - Cardiovascular: No syncope, no chest pain, no palpitations - Gastrointestinal: No nausea vomiting or diarrhea - Endocrine: No polyuria polydipsia no heat intolerance - Genitourinary: No dysuria , no blood in urine Physical Exam General: No acute distress HEENT: Rash on nose covered with Band-Aid Neck: Supple Respiratory system: Able to talk in full sentences, no audible wheeze cardiovascular: S1-S2 regular in rate and rhythm Gastrointestinal: No pain Extremities: No new findings PURCHASING BUYER: Alert awake oriented x3 motor sensory intact Skin: Normal turgor PFSH Medical History Neck Pain Arm numbness left Neck pain Concussion Numbness and tingling in left arm Diverticulosis Tubular adenoma Osteoarthritis of left knee Chronic GERD Morbid obesity IBS (irritable bowel syndrome) Depression Asthma Anxiety disorder Chronic back pain Neuropathy delivery delivered Cholecystitis Fibromyalgia Arthritis Surgical History History of esophagogastroduodenoscopy (EGD) H/O colonoscopy H/O knee surgery H/O oophorectomy Hx of section Family History Maternal Grandmother Ovarian ca Sister Slow to wake up after anesthesia Other Substance use disorder Social History Household Members: Spouse Housing: House Are you a primary progressive care manager to a significant other at home: No Do you presently have visiting nurse or other home services: No Alcohol intake: current Alcohol intake frequency: holidays/special occasions only Alcohol type: beer Comment: COUNTS CORRECT Patient Tobacco Use Status: Former Tobacco user Tobacco use type: Cigarette Years Smoked: 15 years e-Cigarette/Vaping Use: Never Used Substance Use Type: Marijuana Advance Directives Date on File: 04/13/23 service: No 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al status: unemployed 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 1. Little interest or pleasure in doing things: not at all 2. Feeling down, depressed, or hopeless: not at all 3. Trouble falling or staying asleep, or sleeping too much: not at all 4. Feeling tired or having little energy: not at all 5. Poor appetite or overeating: not at all 6. Feeling bad about yourself - or that you are a failure or have let yourself or your family down: not at all 7. Trouble concentrating on things, such as reading the newspaper or watching television: not at all 8. Moving or speaking so slowly that other people could have noticed. Or the opposite - being so fidgety or restless that you have been moving around a lot more than usual: not at all 9. Thoughts that you would be better off or of hurting yourself in some way: not at all Total score: 0 Depression Screening Interpretation: Negative Depression Screening Done: Yes 50873 - PHQ-9 Billing: Yes Source: Developed by Drs. Joshua Munoz, Claudia Taylor, Kojo Frye and colleagues, with an educational jessica from [employer]. Thrive Questionnaire Date Thrive assessed: 10/26/24 I am a: Patient What is your living situation today?: I choose not to answer this question Within the past 12 months, did the food you bought not last and you didn't have the money to get more?: Often true Within the past 12 months, did you worry whether your food would run out before you got money to buy more?: Often true Do you have trouble paying for medicines?: No Do you have trouble getting transportation to medical appointments?: No Do you have trouble paying your heating and electricity bill?: Yes Do you have trouble taking care of your child, family member or friend?: I choose not to answer this question Do you have trouble with day-to-day activities such as bathing, preparing meals, shopping, managing finances, etc.?: Yes Are you currently unemployed and looking for a job?: I choose not to answer this question Are you interested in more education?: No Please select the resources that you would like help with: None Currently or been in a relationship where the following occur: No concerns reported THRIVE Score: 3 AUDIT C Alcohol Use Questionnaire (AUDIT-C) 1. How often do you have a drink containing alcohol?: 2-4 times a month 2. How many drinks containing alcohol do you have on a typical day when you are drinking?: 5 or 6 3. How often do you have six or more drinks on one occasion?: Never Total Score: 4 Score Reviewed/Action Taken: Yes MIKE-7 AMB Questionnaire MIKE-7 Date MIKE - 7 assessed: 10/26/24 Feeling nervous, anxious, or on edge: 0 = Not at all Not being able to stop or control worryin = Not at all Worrying too much about different things: 0 = Not at all Trouble relaxin = Not at all Being so restless that it is hard to sit still: 0 = Not at all Becoming easily annoyed or irritable: 0 = Not at all Feeling afraid as if something awful might happen: 0 = Not at all Total MIKE-7 score (0-4 normal; 5-9 mild; 10-14 moderate; 15-21 severe): 0 Source: Developed by Drs. Joshua Munoz, Claudia Taylor, Kojo Frye and colleagues, with an educational jessica from [employer]. MIKE-7 Assessment Billing MIKE-7 Assessment Tool: MIKE-7 Assessment 75794 Physical exam (Primary Care) Vital Signs: Last Vital Signs Pulse 107 H 10/26/24 13:20 BP 122/76 10/26/24 13:20 Pulse Ox 97 10/26/24 13:20 Oxygen Delivery Method Room Air 10/26/24 13:20 BMI result Body Mass Index 43.6 Tobacco/Smoking Status: Tobacco use Status Tobacco use date assessed 10/26/24 10/26/24 13:24 Patient Tobacco Use Status Former Tobacco user 10/26/24 13:24 Tobacco use type Cigarette 10/26/24 13:24 e-Cigarette/Vaping Use Never Used 10/26/24 13:24 PHQ-9: PHQ-9 Score PHQ-9: Total score 0 10/26/24 13:34 Depression Screening Interpretation: Negative Thrive Assessment: Date of Thrive Assessment Date Thrive assessed 10/26/24 10/26/24 13:24 Currently or been in a relationship where the following occur: No concerns reported Coding Level of Care Code Est Pt Level 5 (66703) Diagnoses Colitis K52.9 Cervicogenic headache G44.86 Anxiety, generalized F41.1 Intractable migraine without status migrainosus, unspecified migraine type G43.919 Intractability: intractable Migraine type: unspecified Status migrainosus presence: without status migrainosus Muscle spasm M62.838 Peripheral artery disease I73.9 Venous insufficiency I87.2 Cervical spondylosis M47.812 Pain management R52 Additional Codes MIKE-7 Assessment Billing - MIKE-7 Assessment Tool: MIKE-7 Assessment 20684 ([id number]) PHQ-9 - 02096 - PHQ-9 Billing: Yes ([id number]) Assessment & Plan Assessment & Plan (1) Colitis: Code(s): K52.9 - Noninfective gastroenteritis and colitis, unspecified Category: Medical (2) Cervicogenic headache: Code(s): G44.86 - Cervicogenic headache Category: Medical (3) Anxiety, generalized: Code(s): F41.1 - Generalized anxiety disorder Category: Medical (4) Migraine headache: Code(s): G43.909 - Migraine, unspecified, not intractable, without status migrainosus Category: Medical Qualifiers: Intractability: intractable Migraine type: unspecified Status migrainosus presence: without status migrainosus Qualified Code(s): G43.919 - Migraine, unspecified, intractable, without status migrainosus (5) Muscle spasm: Code(s): M62.838 - Other muscle spasm Category: Medical (6) Peripheral artery disease: Code(s): I73.9 - Peripheral vascular disease, unspecified Category: Medical (7) Venous insufficiency: Code(s): I87.2 - Venous insufficiency (chronic) (peripheral) Category: Medical (8) Cervical spondylosis: Code(s): M47.812 - Spondylosis without myelopathy or radiculopathy, cervical region Category: Medical (9) Pain management: Code(s): R52 - Pain, unspecified Category: Medical Plan 54-year-old female past medical history significant for obesity, IBS, anxiety, vertigo iron-deficiency anemia, overactive bladder, diverticulosis presented to [facility] on 05 of October for evaluation of left-sided abdominal pain. Pain started 3 days prior to arrival with associated nausea vomiting and diarrhea Patient is established with gastroenterology [facility] Her abdominal exam in emergency room revealed no rebound tenderness patient was having guarding to palpation left upper and lower abdomen CT scan of abdomen shows nonspecific colitis, no evidence of diverticulitis. Patient was treated with Cipro and Flagyl In emergency room her GFR was 57 which has improved from May of last year Her liver enzymes were slightly elevated at 41 AST and 66 ALT, they were normal in May of last year, lipase level was 7 After evaluation patient was discharged home - Colitis: Currently under dietary management with low-FODMAP, gluten-free, and dairy-free diet following recommendations from the accounts payable processor, feeling much better No more abdominal pain back to baseline - Dermatitis: Present on the nose, being managed with a topical ointment and stronger medication pending from the pharmacy. Pulmonology Technician follow-up scheduled in two weeks. - Chronic neck pain Pain: Scheduled for radiofrequency ablation on the left side on November 16. Patient is requesting few tablets of Percocet which I have sent for her - Anxiety: Occasionally managed with lorazepam, reported well-controlled at present. - Vascular Issues: Scheduled for a vascular ultrasound due to symptoms of cold sensitivity suggesting potential peripheral vascular involvement. Problem List - s/p Colitis - Dermatitis of the nose - Anxiety - Chronic Pain - Peripheral Vascular Disease - allergies Patient Instructions - Continue medication as previously prescribed. - Attend the scheduled follow-up appointment with the truck dock material mover in two weeks. - Prepare for the radiofrequency ablation procedure scheduled for November 16, with understanding it will be conducted on the left side. - Adhere to the prescribed dietary modifications including gluten-free, dairy-free, and low-FODMAP diet. - Utilize lorazepam as needed for anxiety; limit usage to episodes of high anxiety. - be aware of the side effects of Percocet do not drive or work with machine while taking this medication for pain 40 minute appointment, going over hospital notes [id number] with the patient, documentation, coordination care Medications: Refilled hydrocodone-acetaminophen 5-325 mg Partial Fill upon patient request. 1 tab PO .qhs PRN 30 tabs 0RF pain 30 days G44.86 - Cervicogenic headache, M47.812 - Spondylosis without myelopathy or radiculopathy, cervical region
== END 2024-10-26 13:40 | disposition home or self-care (01) ==
PROVIDERS: PCP Internal Medicine; Visit Provider Internal Medicine
DX: I73.9 Peripheral vascular disease, unspecified (principal); K52.9 Noninfective gastroenteritis and colitis, unspecified; G44.86 Cervicogenic headache; F41.1 Generalized anxiety disorder; G43.919 Migraine, unspecified, intractable, without status migrainosus; M62.838 Other muscle spasm; I87.2 Venous insufficiency (chronic) (peripheral); M47.812 Spondylosis without myelopathy or radiculopathy, cervical region; R52 Pain, unspecified

== ENCOUNTER → 2024-10-26 13:14 | Outpatient (BNVA) | payer OTHER, SELFPAY | PROVIDERS: PCP Internal Medicine; Visit Provider Internal Medicine | DX: K52.9 Noninfective gastroenteritis and colitis, unspecified (principal); F41.1 Generalized anxiety disorder; G43.909 Migraine, unspecified, not intractable, without status migrainosus; M62.838 Other muscle spasm; I73.9 Peripheral vascular disease, unspecified; I87.2 Venous insufficiency (chronic) (peripheral); M47.812 Spondylosis without myelopathy or radiculopathy, cervical region; R52 Pain, unspecified | CPT/HCPCS: 96127; 99212 ==

== ENCOUNTER 2024-11-07 14:51 | Outpatient (REF) | payer OTHER, SELFPAY ==
--- NOTE | ~2024-11-07 | US_ITS ---
EXAMINATION: US NONINVASIVE ASSESSMENT OF THE BOTH LOWER EXTREMITY WITH ARTERIAL DUPLEX AND ANKLE BRACHIAL INDICES (ABIS) CLINICAL INFORMATION: Peripheral vascular disease, unspecified. COMPARISON: None available. TECHNIQUE: Duplex Doppler techniques with waveform analysis and measurement of velocities in the common femoral, profunda femoris, superficial femoral, popliteal and tibial arteries were performed. In addition, ankle pulse volume recordings, ankle pressure measurements and ankle brachial indices were obtained of the both lower extremity arterial system. The study was performed only at rest. FINDINGS: NONINVASIVE ASSESSMENT OF THE ARTERIES OF BILATERAL LOWER EXTREMITIES WITH ABIs: RIGHT LEG: Ankle-brachial index: 1.05. Ankle PVR: Abnormal waveforms. LEFT LEG: Ankle-brachial index: 1.0. Left ankle PVR: Abnormal waveforms. HOLLY Reference: 0.9 - 1.4 = normal - no significant arterial disease 0.7 - 0.89 = mild peripheral arterial disease 0.51 - 0.69 = moderate peripheral arterial disease 0.50 = severe peripheral arterial disease RIGHT LOWER EXTREMITY DUPLEX ULTRASOUND: Common femoral artery: 63 cm/s. Triphasic waveforms. Spectral broadening. Profunda femoris artery: 50 cm/s. Monophasic waveforms. Superficial femoral artery (proximal): 87 cm/s. Triphasic waveforms. Superficial femoral artery (mid): 76 cm/s. Triphasic waveform. Superficial femoral artery (distal): 56 cm/s. Triphasic waveform. Popliteal artery: 50 cm/s Triphasic waveforms. Posterior tibial artery: 53 cm/s Triphasic waveforms. Anterior tibialis artery: 55 cm/s. Triphasic waveforms. Dorsalis pedis artery: 74 cm/s. Biphasic waveforms. Spectral broadening. LEFT LOWER EXTREMITY DUPLEX ULTRASOUND: Common femoral artery: 84 cm/s. Triphasic waveform. Spectral broadening. Profunda femoris artery: 58 cm/s. Biphasic waveform. Spectral broadening. Superficial femoral artery (proximal): 101 cm/s. Triphasic waveform. Superficial femoral artery (mid): 93 cm/s. Triphasic waveforms. Superficial femoral artery (distal): 74 cm/s. Triphasic waveform. Popliteal artery: 48 cm/s Triphasic waveforms. Posterior tibial artery: 50 cm/s Triphasic waveform. Anterior tibialis artery: 38 cm/s. Triphasic waveform. Spectral broadening. Dorsalis pedis artery: 30 cm/s. Biphasic waveform. Spectral broadening. US/US arterial duplex BI w/ HOLLY IMPRESSION: Disease right femoral profunda artery and to a lesser extent left femoral profunda artery. Disease right and left dorsalis base artery. Electronically signed by: Cody Hernandez MD 11/08/2024 08:01 AM RENNY HARRELL
== END 2024-11-07 14:52 | disposition home or self-care (01) ==
LOC: HO.US 14:51
PROVIDERS: PCP Internal Medicine; Visit Provider Physician Assistant Surgical
DX: I73.9 Peripheral vascular disease, unspecified (principal)
CPT/HCPCS: 93922; 93925

== ENCOUNTER → 2024-11-07 14:52 | Outpatient (BNV) | payer OTHER, SELFPAY | PROVIDERS: PCP Internal Medicine; Visit Provider Radiology Diagnostic Radiology | DX: I73.9 Peripheral vascular disease, unspecified (principal) | CPT/HCPCS: 93922; 93925 ==

== ENCOUNTER 2024-11-15 09:56 | Outpatient (AMB) | payer OTHER, SELFPAY ==
--- NOTE | 2024-11-15 09:57 | MHC.OFFVIS ---
Vital Signs 11/15/24 09:59 Height 5 ft 7 in Weight 278 lb BMI 43.5 Intake Visit Reasons: follow up s/p Arterial US 11/07/24 Intake Note: follow up Arterial US 11/07/24. Pt states Left LE from the knee down through the toes get very cold and painful starting over 2 yrs ago. Accompanied by: Spouse Allergies codeine [Tylenol-Codeine] Allergy (Severe, Verified 11/15/24 10:01) Vomiting compazine Allergy (Severe, Verified 11/15/24 10:01) Seizure hydromorphone [From DILAUDID] Allergy (Severe, Verified 11/15/24 10:01) VOMITING,DIZZY meperidine [Demerol] Allergy (Severe, Verified 11/15/24 10:01) Rash prednisone Allergy (Severe, Verified 11/15/24 10:01) skin blistering amoxicillin [AMOXICILLIN] Allergy (Intermediate, Verified 11/15/24 10:01) HIVES, THRUSH naproxen Adverse Reaction (Intermediate, Verified 11/15/24 10:01) Family History of Kidney Disease HPI HPI follow up s/p Arterial US 11/07/24: Details: Barbara is presenting today for a follow up to bilateral lower extremity arterial duplex with ABIs, performed on 11/07/2024. She does continue to endorse cool feelings in her left lower extremity more than her right. She has been seen by multiple providers including pain management, Orthopedics, and Neurology. She is a former smoker and not a diabetic. She states the symptoms have not been worsening but they are not better. She has no new concerns today. [facility] Medical History Arm numbness left Neck pain Concussion Numbness and tingling in left arm Diverticulosis Tubular adenoma Osteoarthritis of left knee Chronic GERD Morbid obesity IBS (irritable bowel syndrome) Depression Asthma Anxiety disorder Chronic back pain Neuropathy Cholecystitis Fibromyalgia Arthritis Surgical History Hx of knee surgery History of total left knee replacement History of esophagogastroduodenoscopy (EGD) H/O colonoscopy H/O knee surgery H/O oophorectomy Hx of section Family History Maternal Grandmother Ovarian ca Sister Slow to wake up after anesthesia Other Substance use disorder Social History Household Members: Spouse Housing: House Are you a primary personal care attendant to a significant other at home: No Do you presently have visiting nurse or other home services: No Alcohol intake: current Alcohol intake frequency: holidays/special occasions only Alcohol type: beer Comment: COUNTS CORRECT Patient Tobacco Use Status: Former Tobacco user Tobacco use type: Cigarette Years Smoked: 15 years e-Cigarette/Vaping Use: Never Used Substance Use Type: Marijuana Advance Directives Date on File: 04/13/23 service: No 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al status: unemployed 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 Cognitive needs: No Hearing needs: No Vision needs: No Female Reproductive History Menstrual Age of Menarche: 12 Review of Systems Const Reports as per HPI and Denies weakness ENT Reports Normal hearing present and Denies dizziness Card Reports as per HPI, Denies chest pain, Denies chest pain at rest, Denies chest pain with activity, Denies dyspnea and Denies dyspnea on exertion Resp Reports as per HPI, Denies cough, Denies dyspnea and Denies dyspnea on exertion GI Reports as per HPI, Denies abdominal pain, Denies nausea and Denies vomiting Musc Denies numbness Skin/Breast Reports as per HPI, Denies erythema and Denies wounds Neuro Reports Normal hearing present, Denies dizziness, Denies numbness, Denies Sensory deficit (Neuro) and Denies weakness Psych Reports no additional complaints Endo Reports no additional complaints Physical Exam Vital Signs: BMI result Body Mass Index 43.5 Const General: healthy appearing and no acute distress Orientation/consciousness: patient oriented x3 HEENT Head: Yes normal to inspection Ears: hearing grossly normal bilaterally Mouth: Normal oral and palatal mucosa present Resp Effort & Inspection: normal respiratory effort and able to speak in complete sentences Auscultation: clear to auscultation bilaterally Cardio Jugular venous distension: no JVD Rate: regular rate Rhythm: regular rhythm Heart sounds: S1 normal heart sound present and S2 normal heart sound present Bruits: no abdominal aortic bruits, no carotid bruits, no femoral bruits and no renal bruits Peripheral pulses: Peripheral pulses 2+ throughout GI Inspection: Yes normal to inspection Palpation (GI): No Abdominal aortic bruit present Skin General skin exam: no rashes or lesions noted Wounds: no wounds Hair: normal Neuro General: patient oriented x3 Cranial nerves: Yes Normal hearing present Cognition (Neuro): normal cognition Gait exam (Neuro): Normal gait present Motor exam (neuro): 5/5 motor strength present throughout Sensory Exam: No Sensory deficit (Neuro) Extrem Other: Left lower extremity: Foot is cold from mid foot to the toes. Faint but palpable DP pulses. Cap refill proximally for seconds. Slight discoloration of the toes. Trace peripheral edema noted. Right lower extremity: Tips of toes cold. Faint but palpable DP pulses. Cap refill appx 3 seconds. Trace peripheral edema noted. General: Yes normal to inspection, Yes full ROM, Yes capillary refill normal and Yes normal gait Results Reviewed Results Reviewed: Bilateral lower extremity duplex ultrasound with ABIs: Right HOLLY: 1.05 Left HOLLY: 1.0. Impression: dx right femoral profunda artery and to a lesser extent left femoral profunda artery. Dx right and left dorsalis base artery. Assessment & Plan Assessment & Plan (1) Peripheral artery disease: Code(s): I73.9 - Peripheral vascular disease, unspecified Category: Medical Plan: Barbara is presenting today for a follow up to bilateral lower extremity arterial duplex US with ABIs, performed on 11/07/24. Her ABIs are within normal limit and there was limited dx noted in bilateral profundas. We discussed that this likely not the cause of her cool feet. We discussed to reach out to her PCP for an additional referrals/testing; unfortunately, she has been to Neuro, pain mgte, and Ortho. We discussed to continue with a healthy, well balanced diet and physical activity. We discussed that if she gets any claudication issues, to reach back out to our office. Thank you for allowing us to participate in the patient's care. If there are any questions or concerns, please do not hesitate to reach out to us. Coding Level of Care Code Est Pt Level 4 (18676) Diagnoses Peripheral artery disease I73.9 Comment Review of arterial duplex US
[2024-11-15 09:59] VITALS: BMI 43.5
--- OUTSIDE RECORDS SUMMARY | 2024-11-15 11:34 | XMS_ITS | Encounter Summary ---
Author Organization [facility] Address [address] [place] [address] Care Team Providers Care Office Worker Name Role Phone Sierra Edge MD Primary Care Provider Unavailable Cody Murcia MD Primary Care Provider Juliet Hoffman MD Primary Care Provider Unavailabl e Encounter Details Date Type Department Care Team Description 11/12/2013 Pt. Non Urgent Medic al Question Adult Medicine [address] [address] Sierra Edge MD Social History Tobacco Use [...] Progress Notes * Suki Posey M.A. - 11/12/2013 7:43 AM ESTFrom: RAFAEL HOFFMANN To: Sierra Edge MD Sent: TueNov 12, 2013 12:50 AM Subject: cough i have had a cough for quite a few days and i have been taking cough medicine and using my inhaler and ever since yesterday my throat has started to hurt as well and now i have pain on my rib cage onthe left side front and also in the back it is very difficult to to do much as i cough even if its a small one i am in severe pain in my side i am sure i just pulled a muscle but i need to do something i woke up this morning and coughed for an hour straight and coughed up alot of mucus and when i blew my nose this morning blood came out so i was wondering if you had any other suggestions i am taking robitussin dm thank you documented in this encounter Plan of Treatment Not on file documented as of this encounter Visit Diagnoses Not on filedocumented in this encounter Care Teams Office Worker Relationship Specialty Start Date End Date Sierra Edge MD PCP - General Internal Medicine 01/11/1308/12/15 Cody Murcia MD PCP - General Internal Medicine 08/13/15 05/19/21 Juliet Torres MD PCP - General Internal Medicine 06/18/21 documented as of this encounter
--- OUTSIDE RECORDS SUMMARY | 2024-11-15 11:34 | XMS_ITS | Clinical Summary ---
Author Organization [facility] Address [address] [place] [address] Care Team Providers Care Mold Presser Name Role Phone Juliet Torres MD Primary Care Provider Unavailabl e Allergies Active Allergy Reactions Severity Noted Date Comments Amoxicillin Trihydrate 01/20/2007 SORES IN MOUTH Benzyl Sww-Uctskchxkkemrhby-Djxydzv in 01/20/2007 PRE-SEIZURE Meperidine Hcl Itching/Pruritus 01/20/2007 [...] Capsules by mouth daily. 0 Active Black Sbcijd-VvaEuxvusz-Fq gnol (Estroven Menopause Relief) Cap Take 1 [...] RISK PATIENTS (#2) 2035 11/22/2013 Care Teams Mold Presser Relationship Specialty Start Date End Date Juliet Torres MD PCP - General Internal Medicine 06/18/21
--- OUTSIDE RECORDS SUMMARY | 2024-11-15 11:34 | XMS_ITS | Encounter Summary ---
Author Organization [facility] Address [address] [place] [address] Care Team Providers Care Culture Manager Name Role Phone Sierra Edge MD Primary Care Provider Unavailable Cody Murcia MD Primary Care Provider Juliet Hoffman MD Primary Care Provider Unavailabl e Encounter Details Date Type Department Care Team Description 06/17/2014 Pt. Non Urgent Medic al Question Adult Medicine [address] [address] Sierra Edge MD Social History Tobacco Use [...] on filedocumented in this encounter Care Teams Culture Manager Relationship Specialty Start Date End Date Sierra Edge MD PCP - General Internal Medicine 01/11/1308/12/15 Cody Murcia MD PCP - General Internal Medicine 08/13/15 05/19/21 Juliet Torres MD PCP - General Internal Medicine 06/18/21 documented as of this encounter
--- OUTSIDE RECORDS SUMMARY | 2024-11-15 11:34 | XMS_ITS | Encounter Summary ---
Author Organization [facility] Address [address] [place] [address] Care Team Providers Care Winch Derrick Operator Name Role Phone Juliet Torres MD Primary Care Provider Unavailabl e Encounter Details Date Type Department Care Team Description 07/02/2021 [facility] Records [facility] Medical [facility] [address] [place] [address] [place] [phone] Pierre Ghotra MD Social History Tobacco [...] on filedocumented in this encounter Care Teams Winch Derrick Operator Relationship Specialty Start Date End Date Juliet Torres MD PCP - General Internal Medicine 06/18/21 documented as of this encounter
--- OUTSIDE RECORDS SUMMARY | 2024-11-15 11:34 | XMS_ITS | Encounter Summary ---
Author Organization [facility] Address [address] [place] [address] Care Team Providers Care Deckhand Shrimp Boat Name Role Phone Sierra Edge MD Primary Care Provider Unavailable Cody Murcia MD Primary Care Provider Juliet Hoffman MD Primary Care Provider Unavailabl e Encounter Details Date Type Department Care Team Description 04/15/2014 Pt. Non Urgent Medic al Question Adult Medicine [address] [address] Sierra Edge MD Social History Tobacco Use [...] as of this encounter Progress Notes * Patria Yun - 04/15/2014 1:40 PM EDTFrom: Barbara Harris To: Sierra Edge MD Sent: 04/15/2014 1:34 PM EDT Subject: Pt 1 I just spoke with [facility] and i have an appointment on April 25 but i will need transportation for this appointment so if you could send in a Pt 1 form so i could book a ride for that day i would appreciate it. Thank you documented in this encounter Plan of Treatment Not on file documented as of this encounter Visit Diagnoses Not on filedocumented in this encounter Care Teams Deckhand Shrimp Boat Relationship Specialty Start Date End Date Sierra Edge MD PCP - General Internal Medicine 01/11/1308/12/15 Cody Murcia MD PCP - General Internal Medicine 08/13/15 05/19/21 Juliet Torres MD PCP - General Internal Medicine 06/18/21 documented as of this encounter
--- OUTSIDE RECORDS SUMMARY | 2024-11-15 11:34 | XMS_ITS | Encounter Summary ---
Author Organization [facility] Address [address] [place] [address] Care Team Providers Care Molded Goods Inspector Trimmer Name Role Phone Sierra Edge MD Primary Care Provider Unavailable Cody Murcia MD Primary Care Provider Juliet Hoffman MD Primary Care Provider Unavailabl e Encounter Details Date Type Department Care Team Description 03/31/2015 Hitch Technician Report Medical Records [address] [place] [address] Michi Campos MD Social History Tobacco Use [...] on filedocumented in this encounter Care Teams Molded Goods Inspector Trimmer Relationship Specialty Start Date End Date Sierra Edge MD PCP - General Internal Medicine 01/11/1308/12/15 Cody Murcia MD PCP - General Internal Medicine 08/13/15 05/19/21 Juliet Torres MD PCP - General Internal Medicine 06/18/21 documented as of this encounter
--- OUTSIDE RECORDS SUMMARY | 2024-11-15 11:34 | XMS_ITS | Encounter Summary ---
Author Organization [facility] Address [address] [place] [address] Care Team Providers Care Web Marketing Assistant Name Role Phone Sierra Edge MD Primary Care Provider Unavailable Cody Murcia MD Primary Care Provider Juliet Hoffman MD Primary Care Provider Unavailabl e Reason for Visit * Reason Onset Date Comments Form 12/25/2013 pt 1 form Encounter Details Date Type Department Care Team Description 12/25/2013 Telephone Adult Medicine [address] [address] Sierra Edge MD Form (pt 1 form) [...] Hendrix - 12/25/2013 2:33 PM EDT Patients [place] [facility] Pt. demographics and [facility] Ins information verified YES Mailing address if different from home address NO Name of treating provider Sierra Edge Address/zip for treating provider [address] [place] [address] Phone # of treating provider [phone] What specialty is this provider? Internal Medicine [...] on filedocumented in this encounter Care Teams Web Marketing Assistant Relationship Specialty Start Date End Date Sierra Edge MD PCP - General Internal Medicine 01/11/1308/12/15 Cody Murcia MD PCP - General Internal Medicine 08/13/15 05/19/21 Juliet Torres MD PCP - General Internal Medicine 06/18/21 documented as of this encounter
--- OUTSIDE RECORDS SUMMARY | 2024-11-15 11:34 | XMS_ITS | Encounter Summary ---
Author Organization [facility] Address [address] [place] [address] Care Team Providers Care Director Of Retail Merchandising Name Role Phone Sierra Edge MD Primary Care Provider Unavailable Cody Murcia MD Primary Care Provider Juliet Hoffman MD Primary Care Provider Unavailabl e Encounter Details Date Type Department Care Team Description 06/13/2014 Transfer Records Medical Records [address] [place] [address] Abstract, Provider Social History Tobacco Use Types [...] on filedocumented in this encounter Care Teams Director Of Retail Merchandising Relationship Specialty Start Date End Date Sierra Edge MD PCP - General Internal Medicine 01/11/1308/12/15 Cody Murcia MD PCP - General Internal Medicine 08/13/15 05/19/21 Juliet Torres MD PCP - General Internal Medicine 06/18/21 documented as of this encounter
--- OUTSIDE RECORDS SUMMARY | 2024-11-15 11:34 | XMS_ITS | Encounter Summary ---
Author Organization [facility] Address [address] [place] [address] Care Team Providers Care Tool Machine Shop Supervisor Name Role Phone Sierra Edge MD Primary Care Provider Unavailable Cody Murcia MD Primary Care Provider Juliet Hoffman MD Primary Care Provider Unavailabl e Encounter Details Date Type Department Care Team Description 02/05/2014 Relations Manager Report Medical Records [address] [place] [address] Michi Campos MD Social History Tobacco Use [...] on filedocumented in this encounter Care Teams Tool Machine Shop Supervisor Relationship Specialty Start Date End Date Sierra Edge MD PCP - General Internal Medicine 01/11/1308/12/15 Cody Murcia MD PCP - General Internal Medicine 08/13/15 05/19/21 Juliet Torres MD PCP - General Internal Medicine 06/18/21 documented as of this encounter
--- OUTSIDE RECORDS SUMMARY | 2024-11-15 11:34 | XMS_ITS | Encounter Summary ---
Author Organization [facility] Address [address] [place] [address] Care Team Providers Care Water Mechanic Name Role Phone Cody Murcia MD Primary Care Provider Juliet Hoffman MD Primary Care Provider Bhavani falcon Encounter Details Date Type Department Care Team Description 08/13/2015 Cranberry Bog Supervisor Report Medical Records [address] [place] [address] Latrice Perez MD [address] [place] [address] [address] [place] [phone] Social History Tobacco Use Types Packs/Day Years [...] on filedocumented in this encounter Care Teams Water Mechanic Relationship Specialty Start Date End Date Cody Murcia MD PCP - General Internal Medicine 08/13/15 05/19/21 Juliet Torres MD PCP - General Internal Medicine 06/18/21 documented as of this encounter
--- OUTSIDE RECORDS SUMMARY | 2024-11-15 11:34 | XMS_ITS | Encounter Summary ---
Author Organization [facility] Address [address] [place] [address] Care Team Providers Care Rental Management Trainee Name Role Phone Sierra Edge MD Primary Care Provider Unavailable Cody Murcia MD Primary Care Provider Juliet Hoffman MD Primary Care Provider Unavailabl e Encounter Details Date Type Department Care Team Description 04/25/2014 Pt. Non Urgent Medic al Question Adult Medicine [address] [address] Sierra Edge MD Social History Tobacco Use [...] on filedocumented in this encounter Care Teams Rental Management Trainee Relationship Specialty Start Date End Date Sierra Edge MD PCP - General Internal Medicine 01/11/1308/12/15 Cody Murcia MD PCP - General Internal Medicine 08/13/15 05/19/21 Juliet Torres MD PCP - General Internal Medicine 06/18/21 documented as of this encounter
--- OUTSIDE RECORDS SUMMARY | 2024-11-15 11:34 | XMS_ITS | Encounter Summary ---
Author Organization [facility] Address [address] [place] [address] Care Team Providers Care Blocker And Polisher Gold Wheel Name Role Phone Sierra Edge MD Primary Care Provider Unavailable Cody Murcia MD Primary Care Provider Juliet Hoffman MD Primary Care Provider Unavailabl e Encounter Details Date Type Department Care Team Description 06/25/2015 Frog Or Oyster Farmworker Report Medical Records [address] [place] [address] Michi Campos MD Social History Tobacco Use [...] on filedocumented in this encounter Care Teams Blocker And Polisher Gold Wheel Relationship Specialty Start Date End Date Sierra Edge MD PCP - General Internal Medicine 01/11/1308/12/15 Cody Murcia MD PCP - General Internal Medicine 08/13/15 05/19/21 Juliet Torres MD PCP - General Internal Medicine 06/18/21 documented as of this encounter
--- OUTSIDE RECORDS SUMMARY | 2024-11-15 11:34 | XMS_ITS | Encounter Summary ---
Author Organization [facility] Address [employer] [place] [address] Care Team Providers Care Electric Powerline Examiner Name Role Phone Juliet Torres MD Primary Care Provider Unavailabl e Encounter Details Date Type Department Care Team Description 12/01/2023 Release of Information Medical Records [address] [place] [address] Abstract, Provider Social History Tobacco Use Types [...] on filedocumented in this encounter Care Teams Electric Powerline Examiner Relationship Specialty Start Date End Date Juliet Torres MD PCP - General Internal Medicine 06/18/21 documented as of this encounter
--- OUTSIDE RECORDS SUMMARY | 2024-11-15 11:34 | XMS_ITS | Encounter Summary ---
Author Organization [facility] Address [address] [place] [address] Care Team Providers Care Electronic Drafter Name Role Phone Sierra Edge MD Primary Care Provider Unavailable Cody Murcia MD Primary Care Provider Juliet Hoffman MD Primary Care Provider Unavailabl e Reason for Visit * Reason Onset Date Comments PT-1 06/26/2014 Encounter Details Date Type Department Care Team Description 06/26/2014 Telephone Adult Medicine [address] [address] Sierra Edge MD PT-1 Social History Tobacco [...] encounter Miscellaneous Notes * Telephone Encounter - Fatuma Bailey - 06/26/2014 12:40 PM EDT Patients [place] [facility] Pt. demographics and [place] [facility] [place] information verified YES Is this a NEW request or a Renewal? new Mailing address: [address] [place] [address] Is the mailing address accurate? YES. If no, update all screens in Registration Has [place] [facility] Insurance coverage been verified? YES Name (first & last) of treating provider Dr Varela Reason the patient is seeing the above provider: foot pain Address/zip for treating provider [address] [place], [place] Phone # of treating provider [phone] What specialty is this provider? podiatry How often they see them 1 visits per week, 4visits per month How long will they require these services 52 weeks, 12 Months When is the visit scheduled? 07/24/2014 Medical reason why they are unable to [...] on filedocumented in this encounter Care Teams Electronic Drafter Relationship Specialty Start Date End Date Sierra Edge MD PCP - General Internal Medicine 01/11/1308/12/15 Cody Murcia MD PCP - General Internal Medicine 08/13/15 05/19/21 Juliet Torres MD PCP - General Internal Medicine 06/18/21 documented as of this encounter
--- OUTSIDE RECORDS SUMMARY | 2024-11-15 11:34 | XMS_ITS | Encounter Summary ---
Author Organization [facility] Address [facility] [place] [address] Care Team Providers Care Food Analyst Name Role Phone Juliet Torres MD Primary Care Provider Unavailabl e Encounter Details Date Type Department Care Team Description 07/28/2021 Admissions Manager Rn Report Medical Records [address] [place] [address] Abstract, Provider Social History Tobacco Use Types [...] on filedocumented in this encounter Care Teams Food Analyst Relationship Specialty Start Date End Date Juliet Torres MD PCP - General Internal Medicine 06/18/21 documented as of this encounter
--- OUTSIDE RECORDS SUMMARY | 2024-11-15 11:34 | XMS_ITS | Encounter Summary ---
Author Organization [facility] Address [address] [place] [address] Care Team Providers Care Cnc Mill Operator Name Role Phone Juliet Torres MD Primary Care Provider Unavaillucien e Encounter Details Date Type Department Care Team Description 05/20/2021 Pt. Non Urgent Medic al Question [facility] Medical [facility] [address] [place] [address] [place] [phone] Pierre Ghotra MD Social History Tobacco [...] on filedocumented in this encounter Care Teams Cnc Mill Operator Relationship Specialty Start Date End Date Juliet Torres MD PCP - General Internal Medicine 06/18/21 documented as of this encounter
--- OUTSIDE RECORDS SUMMARY | 2024-11-15 11:35 | XMS_ITS | Encounter Summary ---
Author Organization [facility] Address [address] [place] [address] Care Team Providers Care Vector Control Assistant Name Role Phone Sierra Edge MD Primary Care Provider Unavailable Cody Murcia MD Primary Care Provider Juliet Hoffman MD Primary Care Provider Unavailabl e Encounter Details Date Type Department Care Team Description 05/09/2013 Alley Tender Report Medical Records [address] [place] [address] Michi Campos MD Social History Tobacco Use [...] on filedocumented in this encounter Care Teams Vector Control Assistant Relationship Specialty Start Date End Date Sierra Edge MD PCP - General Internal Medicine 01/11/1308/12/15 Cody Murcia MD PCP - General Internal Medicine 08/13/15 05/19/21 Juliet Torres MD PCP - General Internal Medicine 06/18/21 documented as of this encounter
--- OUTSIDE RECORDS SUMMARY | 2024-11-15 11:35 | XMS_ITS | Encounter Summary ---
Author Organization [facility] Address [address] [place] [address] Care Team Providers Care Swahili Teacher Name Role Phone Sierra Edge MD Primary Care Provider Unavailable Cody Murcia MD Primary Care Provider Juliet Hoffman MD Primary Care Provider Unavailabl e Encounter Details Date Type Department Care Team Description 07/22/2014 Local Driver Report Medical Records [address] [place] [address] Michi Campos MD Social History Tobacco Use [...] on filedocumented in this encounter Care Teams Swahili Teacher Relationship Specialty Start Date End Date Sierra Edge MD PCP - General Internal Medicine 01/11/1308/12/15 Cody Murcia MD PCP - General Internal Medicine 08/13/15 05/19/21 Juliet Torres MD PCP - General Internal Medicine 06/18/21 documented as of this encounter
--- OUTSIDE RECORDS SUMMARY | 2024-11-15 11:35 | XMS_ITS | Encounter Summary ---
Author Organization [facility] Address [address] [place] [address] Care Team Providers Care Floral Designer Salesperson Name Role Phone Sierra Edge MD Primary Care Provider Unavailable Cody Murcia MD Primary Care Provider Juliet Hoffman MD Primary Care Provider Unavailabl e Encounter Details Date Type Department Care Team Description 10/10/2014 Rfid Engineer Report Medical Records [address] [place] [address] Michi Campos MD Social History Tobacco Use [...] on filedocumented in this encounter Care Teams Floral Designer Salesperson Relationship Specialty Start Date End Date Sierra Edge MD PCP - General Internal Medicine 01/11/1308/12/15 Cody Murcia MD PCP - General Internal Medicine 08/13/15 05/19/21 Juliet Torres MD PCP - General Internal Medicine 06/18/21 documented as of this encounter
--- OUTSIDE RECORDS SUMMARY | 2024-11-15 11:35 | XMS_ITS | Encounter Summary ---
Author Organization [facility] Address [address] [place] [address] Care Team Providers Care Case Maker Name Role Phone Shruthi Flores MD Primary Care Provider Unavailable Jesika Kim MD Primary Care Provider Sierra Al MD Primary Care Provider Unavailable Cody Murcia MD Primary Care Provider Juliet Hoffman MD Primary Care Provider Unavaillucien e Encounter Details Date Type Department Care Team Description 04/16/2011 Release of Information Medical Records [address] [place] [address] Abstract, Provider Social History Tobacco Use Types [...] on filedocumented in this encounter Care Teams Case Maker Relationship Specialty Start Date End Date Shruthi Flores MD PCP - General 04/19/0601/09 Jesika Kim MD PCP - General Family Practice 01/10/13 01/10/13 Sierra Edge MD PCP - General Internal Medicine 01/11/1308/12/15 Cody Murcia MD PCP - General Internal Medicine 08/13/15 05/19/21 Juliet Torres MD PCP - General Internal Medicine 06/18/21 documented as of this encounter
--- OUTSIDE RECORDS SUMMARY | 2024-11-15 11:35 | XMS_ITS | Encounter Summary ---
Author Organization [facility] Address [address] [place] [address] Care Team Providers Care Net Mobile Developer Name Role Phone Sierra Edge MD Primary Care Provider Unavailable Cody Murcia MD Primary Care Provider Juliet Hoffman MD Primary Care Provider Unavailabl e Encounter Details Date Type Department Care Team Description 04/26/2013 Case Specialist Report Medical Records [address] [place] [address] Valerie Riggins NP Social History Tobacco Use [...] on filedocumented in this encounter Care Teams Net Mobile Developer Relationship Specialty Start Date End Date Sierra Edge MD PCP - General Internal Medicine 01/11/1308/12/15 Cody Murcia MD PCP - General Internal Medicine 08/13/15 05/19/21 Juliet Torres MD PCP - General Internal Medicine 06/18/21 documented as of this encounter
--- OUTSIDE RECORDS SUMMARY | 2024-11-15 11:35 | XMS_ITS | Encounter Summary ---
Author Organization [facility] Address [address] [place] [address] Care Team Providers Care Bank Operations Officer Name Role Phone Sierra Edge MD Primary Care Provider Unavailable Coyd Murcia MD Primary Care Provider Juliet Hoffman MD Primary Care Provider Unavailabl e Encounter Details Date Type Department Care Team Description 12/24/2014 Pt. Non Urgent Medic al Question Adult Medicine - [address] [address] Sierra Edge MD Social History Tobacco Use [...] and things of that nature. thank you/ [phone] documented in this encounter Plan of Treatment Not on file documented as of this encounter Visit Diagnoses Not on filedocumented in this encounter Care Teams Bank Operations Officer Relationship Specialty Start Date End Date Sierra Edge MD PCP - General Internal Medicine 01/11/1308/12/15 Cody Murcia MD PCP - General Internal Medicine 08/13/15 05/19/21 Juliet Torres MD PCP - General Internal Medicine 06/18/21 documented as of this encounter
--- OUTSIDE RECORDS SUMMARY | 2024-11-15 11:35 | XMS_ITS | Encounter Summary ---
Author Organization [facility] Address [address] [place] [address] Care Team Providers Care Complaint Manager Name Role Phone Sierra Edge MD Primary Care Provider Unavailable Cody Murcia MD Primary Care Provider Juliet Hoffman MD Primary Care Provider Unavailabl e Encounter Details Date Type Department Care Team Description 01/21/2015 Quarry Supervisor Report Medical Records [address] [place] [address] Michi Campos MD Social History Tobacco Use [...] on filedocumented in this encounter Care Teams Complaint Manager Relationship Specialty Start Date End Date Sierra Edge MD PCP - General Internal Medicine 01/11/1308/12/15 Cody Murcia MD PCP - General Internal Medicine 08/13/15 05/19/21 Juliet Torres MD PCP - General Internal Medicine 06/18/21 documented as of this encounter
--- OUTSIDE RECORDS SUMMARY | 2024-11-15 11:35 | XMS_ITS | Encounter Summary ---
Author Organization [facility] Address [address] [place] [address] Care Team Providers Care Pay Station Department Manager Name Role Phone Sierra Edge MD Primary Care Provider Unavailable Cody Murcia MD Primary Care Provider Juliet Hoffman MD Primary Care Provider Unavailabl e Encounter Details Date Type Department Care Team Description 11/21/2014 Flatwork Finisher Report Medical Records [address] [place] [address] Mateo Zeng Social History Tobacco Use Types [...] on filedocumented in this encounter Care Teams Pay Station Department Manager Relationship Specialty Start Date End Date Sierra Edge MD PCP - General Internal Medicine 01/11/1308/12/15 Cody Murcia MD PCP - General Internal Medicine 08/13/15 05/19/21 Juliet Torres MD PCP - General Internal Medicine 06/18/21 documented as of this encounter
== END 2024-11-15 10:10 | disposition home or self-care (01) ==
PROVIDERS: PCP Internal Medicine; Visit Provider Physician Assistant Surgical
DX: I73.9 Peripheral vascular disease, unspecified (principal)
CPT/HCPCS: 99214

== ENCOUNTER → 2024-11-15 09:56 | Outpatient (BNVA) | payer OTHER, SELFPAY | PROVIDERS: PCP Internal Medicine; Visit Provider Physician Assistant Surgical | DX: I73.9 Peripheral vascular disease, unspecified (principal) | CPT/HCPCS: 99212 ==

== ENCOUNTER 2024-11-19 10:19 | Outpatient (AMB) | payer OTHER, SELFPAY ==
--- NOTE | 2024-11-19 10:20 | A.OFFVIS_ITS ---
Vital Signs 3 11/19/24 10:26 11/19/24 10:26 Height 5 ft 7 in Weight 278 lb BMI 43.5 BP 187/84 H 140/72 H Blood Pressure Location Lt brachial Lt brachial Position Sitting Sitting Pulse 102 H Pulse Source Pulse Oximeter Pulse Oximetry (%) 96 Oxygen Delivery Method Room Air Comment bp recheck manual Intake Visit Reasons: Discuss Alternate Options Intake Note: Pain today 12/20 Certified Medicine Aide Required: No Accompanied by: Spouse Allergies codeine [Tylenol-Codeine] Allergy (Severe, Verified 11/19/24 10:) Vomiting compazine Allergy (Severe, Verified 11/19/24 10:) Seizure hydromorphone [From DILAUDID] Allergy (Severe, Verified 11/19/24:) VOMITING,DIZZY meperidine [Demerol] Allergy (Severe, Verified 11/19/24:) Rash prednisone Allergy (Severe, Verified 11/19/24 10:) skin blistering amoxicillin [AMOXICILLIN] Allergy (Intermediate, Verified 11/19/24:) HIVES, THRUSH naproxen Adverse Reaction (Intermediate, Verified 11/19/24 10:) Family History of Kidney Disease Medication List - Last Reconciled 11/19/24 by MOSES Brody amitriptyline 50 mg PO BEDTIME cane quad cane celecoxib 200 mg PO BID cyclobenzaprine 10 mg PO BID PRN duloxetine 60 mg PO DAILY fluticasone propionate 50 mcg/actuation 1 spray intranasal BID hydrocodone-acetaminophen 5-325 mg 1 tab PO .qhs PRN 30 days loratadine 10 mg PO DAILY 90 days lorazepam 0.5 mg PO DAILY PRN methylcellulose (laxative) (Citrucel) 500 mg PO DAILY metoclopramide HCl (Reglan) 5 mg PO Q8-10H omeprazole 40 mg PO DAILY@0630 tolterodine (Detrol) 2 mg PO BID 90 days Ventolin HFA 90 mcg/actuation (albuterol sulfate) 2 puffs inhalation Q6H PRN 90 days NS HPI Comments Details: Patient presents today for follow up for chronic neck pain. Patient was scheduled to undergo left C3-C4 C5 medial branch radiofrequency ablation on 11/16/24 but decided to cancel procedure due to concerns for potential side effects and risks with procedure. She is accompanied by her and presents today to discuss alternative options for chronic neck and low back pain. Patient reports she continues to loose weight by avoiding sugars, carbs and increase daily physical activity. She is interested in repeating physical therapy and establish home exercise program for current pain generators. Denies any recent cough, cold, infection, fever or any significant changes in medical history since last office visit. Denies any changes to medications, medical history or recent hospitalizations. PRIOR: Patient presents today via telehealth encounter to discuss recent lumbar spine MRI results. She continues to endorse lower back pain with radiation into her lower extremities, more posteriorly and laterally and into her feet, worse on the left. She reports bilateral hip pain without groin pain. She rates back pain at 5/10 with daily activities and walking. Patient also reports repeat diagnostic cervical medial branch blocks were not approved per insurance to do 2 injection session to confirm source of pain. We will proceed with bilateral cervical medial branch RFA. She had positive response to diagnostic cervical medial branch blocks. Denies any recent cough, cold, infection, fever, weakness, foot drop, bladder or bowel dysfunction, saddle anesthesia or other significant changes in medical history since last office visit. PRIOR: Patient presents today to discuss chronic low back pain. She was previously seen in our office for neck pain. She sees Dr. Campos for chronic back pain and neuropathy. Denies any recent trauma, injury or falls. Back is axial and also radiates to upper sacral areas and into left lower anterior leg and foot. Her SLR testing was negative today however she has significant exacerbation of pain with flexion and bending forward, indicating a discogenic source. Left sided radiculopathy has been chronic issue for her and she has been managing this with Neurology medically. Patient has also completed multiple courses of formal physical therapy for low back, knees and hip pain generators in the past 2-3 years with partial improvement. Pain increases with movements, mobility, sleep and social activities. She reports no relief with gabapentin or Lyrica and is currently taking amitriptyline and duloxetine. She is awaiting repeat diagnostic cervical medial branch block injections for potential RFA procedure. Denies any recent cough, cold, infection, fever, bladder or bowel dysfunction, saddle anesthesia, or any ignificant changes in her medical history, medications or recent hospitalizations. Past Procedures: 07/17/24: Diagnostic Left C3-C4-C5 MBB -70-75% pain relief for 6 hours 08/01/24: Diagnostic Right C3-C4-C5 MBB-100% pain relief for 2 weeks 02/02/24: Left parasagittal C7-T1 interlaminar LUISA-40% pain relief PRIOR: Patient is a pleasant 53 years old female with prior history of chronic cervicogenic headaches, fibromyalgia, cervical degenerative disc disease, history of concussion, arthritis, anxiety and most recently onset of vertigo, presents today for initial evaluation of chronic neck pain with left sided radiculopathy. She was referred to us by her Neurologist, Dr. Campos. Most recent cervical MRI was completed in October and noted below. Patient reports axial cervical spine pain which radiates to her left shoulder and left upper arm with associated numbness, tingling and weakness. She also reports cervicogenic headaches on the right. Patient has tried to manage her symptoms with amitriptyline, cyclobenzaprine, Celebrex, duloxetine and also has been taking oxycodone for tendon repair after left TKR. Patient reports dizziness and imbalances episodes due to vertigo. EMR review noted for ER visit in 2020 due to mechanical fall with contusions with no apparent fractures or injuries and negative radiographic study. Denies previous spine surgery but reports remote injections over 15 years ago with various results. Denies any fever, chills, shortness of breaths, gait imbalances, bladder or bowel dysfunction or saddle anesthesia. Oswestry Neck Disability Score=40 (completely disabled) Location: Neck and chronic migraines Duration: Chronic pain >5 years Characteristics of symptom or complaint: Throbbing, sharp, tingling, tiring, freezing, burning, stabbing, numbness Aggravating or associated factors: Any movement, weather changes, cold, stress Relieving factors: Rest, oxycodone, NSAIDs, muscle relaxants, heat, activity modifications Treatment: PT, chiropractor, TENS, injections 15 years ago in [facility] Medical History Arm numbness left Neck pain Concussion Numbness and tingling in left arm Diverticulosis Tubular adenoma Osteoarthritis of left knee Chronic GERD Morbid obesity IBS (irritable bowel syndrome) Depression Asthma Anxiety disorder Chronic back pain Neuropathy Cholecystitis Fibromyalgia Arthritis Surgical History Hx of knee surgery History of total left knee replacement History of esophagogastroduodenoscopy (EGD) H/O colonoscopy H/O knee surgery H/O oophorectomy Hx of section Family History Maternal Grandmother Ovarian ca Sister Slow to wake up after anesthesia Other Substance use disorder Social History Household Members: Spouse Housing: House Are you a primary rn coronary care unit to a significant other at home: No Do you presently have visiting nurse or other home services: No Alcohol intake: current Alcohol intake frequency: holidays/special occasions only Alcohol type: beer Comment: COUNTS CORRECT Patient Tobacco Use Status: Former Tobacco user Tobacco use type: Cigarette Years Smoked: 15 years e-Cigarette/Vaping Use: Never Used Substance Use Type: Marijuana Advance Directives Date on File: 04/13/23 service: No 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al status: unemployed 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 No acute distress. Alert and oriented. Mood and affect appropriate. Follows and participates in conversation appropriately. Respiratory effort is unlabored. No cough. Able to transition from sit to stand unassisted. Ambulates with bilaterally normal heel strike and toe off. Non-antalgic gait. Neck Other: Limited cervical ROM in all planes, especially with lateral rotations, left>right. Reports increased pain with cervical extension. Spurling compression test is negative. Elvey's tension test is negative. Lhermitte's test was negative. DTR intact, +2 and symmetrical, no clonus. Patient demonstrated 5/5 motor strength of bilateral upper extremities. 2 + radial pulses. Neck: Yes normal visual inspection, Yes full ROM, Yes no lymphadenopathy, Yes supple, No anterior neck swelling, No torticollis, Yes no JVD, No prominent supraclavicular fat pad and Yes prominent dorsocervical fat pad General: Yes no CVA tenderness Back/Spine/Pelvis Other: Limited lumbar ROM due to pain. Lumbar flexion and bending forward reproduces mild to moderate pain. Lumbar extension is intact and causes mild pain. Facet loading is positive bilaterally. Back: no CVA tenderness Cervical Spine: loss of normal cervical lordosis, cervical muscular tenderness, pain with cervical ROM, No Cervical spine scars present and No Cervical spine tenderness Thoracic/Lumbar Spine: thoracic and lumbar spine normal to inspection, No Thoracic/lumbar spine scar(s), Lasegue's sign negative, straight leg raise negative bilaterally, pain with thoraco-lumbar ROM, paraspinal muscle tenderness, thoraco-lumbar ROM limited, No thoracic spinal tenderness and lumbar spinal tenderness at L4 and at L5 Pelvis: buttock tenderness (upper) bilaterally Sacroiliac joints: bilaterally (Yan's reproduces lateral hip but not back pain) tender to palpation Extrem General: Yes capillary refill normal, Yes no clubbing, cyanosis or edema and Yes no calf tenderness Results Reviewed Results Reviewed: MR SPINE LUMBAR without CONTRAST 09/20/24 at [facility] INDICATION: Radiculopathy, lumbar region. Vertebrogenic lower back pain. Left knee down to foot numbness and cold for four years. TECHNIQUE: Unenhanced multiplanar, multisequence MR imaging of the lumbar spine. COMPARISON: XR lumbar spine 06/30/2022 (report only; imaging unavailable). FINDINGS: There is normal alignment of the lumbar vertebral bodies. The vertebral bodies are of normal height. Mixed endplate Modic type changes L3-L4. Endplate irregularity with marginal osteophyte formation and moderate loss of intervertebral disc space height at this level. Lumbar facet arthrosis. Conus and cauda equina of normal appearance. The conus tip L1-L2. Examination through the L1-L2 and L2-L3 intervertebral levels without central stenosis or significant foraminal narrowing. Examination through the L3-L4 intervertebral level revealing facet arthrosis and prominence of ligamentum flavum. Small posterior disc osteophyte. Mild associated central stenosis. Bilateral lateral recess encroachment. No significant RIGHT foraminal narrowing. Moderate LEFT foraminal narrowing. Examination through the L4-L5 intervertebral level revealing mild facet arthrosis and prominence of ligamentum flavum. Small posterior disc osteophyte. There is no significant central stenosis. Mild bilateral lateral recess encroachment. Mild RIGHT foraminal narrowing. No significant LEFT foraminal narrowing. Examination through the L5-S1 intervertebral level revealing facet arthrosis, RIGHT greater than LEFT. Fluid within the RIGHT facet. There is no significant central stenosis or foraminal narrowing. IMPRESSION: Spondylotic changes and facet arthrosis. No findings of fracture or listhesis. L3-L4 facet arthrosis and prominence of ligamentum flavum. Small posterior disc osteophyte. Mild associated central stenosis. Bilateral lateral recess encroachment. No significant RIGHT foraminal narrowing. Moderate LEFT foraminal narrowing. L4-L5 mild facet arthrosis and prominence of ligamentum flavum. Small posterior disc osteophyte. There is no significant central stenosis. Mild bilateral lateral recess encroachment. Mild RIGHT foraminal narrowing. No significant LEFT foraminal narrowing. L5-S1 facet arthrosis, RIGHT greater than LEFT. Fluid within the RIGHT facet. There is no significant central stenosis or foraminal narrowing. CT CERVICAL SPINE WITHOUT CONTRAST 03/09/24 CLINICAL INFORMATION: Fall COMPARISON: Previous cervical spine x-ray 01/20/2024 FINDINGS: Bone alignment is normal. No fracture or dislocation. Mild degenerative spondylosis and degenerative disc disease at C5-C6 and C6-C7. Mild degenerative changes at the C1 dens articulation. Prevertebral soft tissues are normal. Visualized lung apices are clear. IMPRESSION: Degenerative changes. No fracture or dislocation. XR CERVICAL SPINE 01/20/24 CLINICAL INFORMATION: Radiculopathy cervical region. COMPARISON: 06/30/2022 TECHNIQUE: 6 views of the cervical spine, inclusive of flexion and extension views, were obtained. FINDINGS: Limited visualization of C6 and C7 due to overlying bone and soft tissue structures. Multilevel cervical spondylosis with [id number] loss of disc space height and hypertrophic change at C5-C6. Redemonstration of reversal of the normal cervical lordosis. Mild dextroscoliosis of the cervical spine. Facet hypertrophy with neural foraminal encroachment on the left at C5-C6. IMPRESSION: Multilevel cervical spondylosis most notable at C5-C6. Assessment & Plan Assessment & Plan (1) Degenerative disc disease: Category: Medical (2) Lumbar pain: Code(s): M54.5 - Low back pain Category: Medical (3) Neck Pain: Code(s): M54.2 - Cervicalgia Category: Medical (4) Cervicogenic headache: Code(s): G44.86 - Cervicogenic headache Category: Medical (5) Cervical spondylosis: Code(s): M47.812 - Spondylosis without myelopathy or radiculopathy, cervical region Category: Medical Plan Patient will proceed with formal PT for chronic neck and low back pain and establish independence with HEP. Script provided today. We also reviewed acupuncture therapy, weight optimization, daily physical activity, adequate hydration, sleep hygiene, and good posture. Patient has paused interventional treatments for axial neck pain due to potential side effects and risks with cervical medial branch RFA. We also reviewed neuromodulation with SCS trial vs implants. Patient and family are hesitant towards temporary or permanent implants. All questions and concerns have been answered and patient agreed with the plan. Follow up as needed. Orders: Orders 2 PT Evaluation and Treatment Today G44.86 - Cervicogenic headache, M47.812 - Spondylosis without myelopathy or radiculopathy, cervical region, M54.2 - Cervicalgia, M54.5 - Low back pain Coding Level of Care Code Est Pt Level 3 (53836) Complex EM visit Add On G2211 Diagnoses Degenerative disc disease Lumbar pain M54.5 Neck Pain M54.2 Cervicogenic headache G44.86 Cervical spondylosis M47.812
[2024-11-19 10:26] VITALS: BP 140/72; BP 187/84; PULSE 102; O2SAT 96; BMI 43.5
--- OUTSIDE RECORDS SUMMARY | 2024-11-19 11:35 | XMS_ITS | Encounter Summary ---
Author Organization [facility] Address [address] [place] [address] Care Team Providers Care Finding Fastener Name Role Phone Rafaela-Shruthi Valencia MD Primary Care Provider Unavailable Jesika Kim MD Primary Care Provider UnavailSierra Haider MD Primary Care Provider Unavailable Cody Murcia MD Primary Care Provider Juliet Hoffman MD Primary Care Provider Unavailabl e Encounter Details Date Type Department Care Team Description 04/20/2010 Night Triage Doc Medical Records [address] [place] [address] Abstract, Provider Social History Tobacco Use Types [...] on filedocumented in this encounter Care Teams Finding Fastener Relationship Specialty Start Date End Date Shruthi Flores MD PCP - General 04/19/0601/09 Jesika Kim MD PCP - General Family Practice 01/10/13 01/10/13 Sierra Edge MD PCP - General Internal Medicine 01/11/1308/12/15 Cody Murcia MD PCP - General Internal Medicine 08/13/15 05/19/21 Juliet Torres MD PCP - General Internal Medicine 06/18/21 documented as of this encounter
--- OUTSIDE RECORDS SUMMARY | 2024-11-19 11:35 | XMS_ITS | Encounter Summary ---
Author Organization [facility] Address [address] [place] [address] Care Team Providers Care Assembler Flexible Leads Name Role Phone Sierra Edge MD Primary Care Provider Unavailable Cody Murcia MD Primary Care Provider Juliet Hoffman MD Primary Care Provider Unavailabl e Encounter Details Date Type Department Care Team Description 04/15/2014 Pt. Non Urgent Medic al Question Adult Medicine [address] [address] Sierra Edge MD Social History Tobacco Use [...] Subject: Pt 1 I just spoke with [facility] and i have an [...] on filedocumented in this encounter Care Teams Assembler Flexible Leads Relationship Specialty Start Date End Date Sierra Edge MD PCP - General Internal Medicine 01/11/1308/12/15 Cody Murcia MD PCP - General Internal Medicine 08/13/15 05/19/21 Juliet Torres MD PCP - General Internal Medicine 06/18/21 documented as of this encounter
--- OUTSIDE RECORDS SUMMARY | 2024-11-19 11:36 | XMS_ITS | Encounter Summary ---
Author Organization [facility] Address [address] [place] [address] Care Team Providers Care Masonry Contractor Name Role Phone Sierra Edge MD Primary Care Provider Unavailable Cody Murcia MD Primary Care Provider Juliet Hoffman MD Primary Care Provider Unavailabl e Encounter Details Date Type Department Care Team Description 01/17/2014 Market Research Analyst Report Medical Records [address] [place] [address] Michi Campos MD Social History Tobacco Use [...] on filedocumented in this encounter Care Teams Masonry Contractor Relationship Specialty Start Date End Date Sierra Edge MD PCP - General Internal Medicine 01/11/1308/12/15 Cody Murcia MD PCP - General Internal Medicine 08/13/15 05/19/21 Juliet Torres MD PCP - General Internal Medicine 06/18/21 documented as of this encounter
--- OUTSIDE RECORDS SUMMARY | 2024-11-19 11:36 | XMS_ITS | Encounter Summary ---
Author Organization [facility] Address [address] [place] [address] Care Team Providers Care Signs And Displays Salesperson Name Role Phone Sierra Edge MD Primary Care Provider Unavailable Cody Murcia MD Primary Care Provider Juliet Hoffman MD Primary Care Provider Unavailabl e Encounter Details Date Type Department Care Team Description 04/26/2013 Traveling Sales Representative Report Medical Records [address] [place] [address] Valerie Riggins NP Social History Tobacco Use [...] on filedocumented in this encounter Care Teams Signs And Displays Salesperson Relationship Specialty Start Date End Date Sierra Edge MD PCP - General Internal Medicine 01/11/1308/12/15 Cody Murcia MD PCP - General Internal Medicine 08/13/15 05/19/21 Juliet Torres MD PCP - General Internal Medicine 06/18/21 documented as of this encounter
--- OUTSIDE RECORDS SUMMARY | 2024-11-19 11:36 | XMS_ITS | Encounter Summary ---
Author Organization [facility] Address [address] [place] [address] Care Team Providers Care Weed Sprayer Name Role Phone Sierra Edge MD Primary Care Provider Unavailable Cody Murcia MD Primary Care Provider Juliet Hoffman MD Primary Care Provider Unavailabl e Encounter Details Date Type Department Care Team Description 08/23/2014 Grader Operator Report Medical Records [address] [place] [id number] Mateo Zeng Social History Tobacco Use Types [...] on filedocumented in this encounter Care Teams Weed Sprayer Relationship Specialty Start Date End Date Sierra Edge MD PCP - General Internal Medicine 01/11/1308/12/15 Cody Murcia MD PCP - General Internal Medicine 08/13/15 05/19/21 Juliet Torres MD PCP - General Internal Medicine 06/18/21 documented as of this encounter
--- OUTSIDE RECORDS SUMMARY | 2024-11-19 11:36 | XMS_ITS | Encounter Summary ---
Author Organization [facility] Address [address] [place] [address] Care Team Providers Care Sales Representative Meats Name Role Phone Sierra Edge MD Primary Care Provider Unavailable Cody Murcia MD Primary Care Provider Juliet Hoffman MD Primary Care Provider Unavailabl e Encounter Details Date Type Department Care Team Description 03/31/2015 Cotton Washer Report Medical Records [address] [place] [address] Michi Campos MD Social History Tobacco Use [...] on filedocumented in this encounter Care Teams Sales Representative Meats Relationship Specialty Start Date End Date Sierra Edge MD PCP - General Internal Medicine 01/11/1308/12/15 Cody Murcia MD PCP - General Internal Medicine 08/13/15 05/19/21 Juliet Torres MD PCP - General Internal Medicine 06/18/21 documented as of this encounter
--- OUTSIDE RECORDS SUMMARY | 2024-11-19 11:36 | XMS_ITS | Encounter Summary ---
Author Organization [facility] Address [address] [place] [address] Care Team Providers Care Unemployment Specialist Name Role Phone Juliet Torres MD Primary Care Provider Unavailabl e Encounter Details Date Type Department Care Team Description 07/02/2021 Old Records [facility] Medical [facility] [address] [place] [address] [place] [id number] Pierre Ghotra MD Social History Tobacco [...] on filedocumented in this encounter Care Teams Unemployment Specialist Relationship Specialty Start Date End Date Juliet Torres MD PCP - General Internal Medicine 06/18/21 documented as of this encounter
--- OUTSIDE RECORDS SUMMARY | 2024-11-19 11:36 | XMS_ITS | Encounter Summary ---
Author Organization [facility] Address [address] [place] [address] Care Team Providers Care Boiling Tub Operator Name Role Phone Sierra Edge MD Primary Care Provider Unavailable Cody Murcia MD Primary Care Provider Juliet Hoffman MD Primary Care Provider Unavailabl e Encounter Details Date Type Department Care Team Description 06/18/2014 Pt. Non Urgent Medic al Question Adult Medicine [address] [address] Sierra Edge MD Social History Tobacco Use [...] on filedocumented in this encounter Care Teams Boiling Tub Operator Relationship Specialty Start Date End Date Sierra Edge MD PCP - General Internal Medicine 01/11/1308/12/15 Cody Murcia MD PCP - General Internal Medicine 08/13/15 05/19/21 Juliet Torres MD PCP - General Internal Medicine 06/18/21 documented as of this encounter
--- OUTSIDE RECORDS SUMMARY | 2024-11-19 11:36 | XMS_ITS | Encounter Summary ---
Author Organization [facility] Address [address] [place] [address] Care Team Providers Care Manual Lathe Machinist Name Role Phone Sierra Edge MD Primary Care Provider Unavailable Cody Murcia MD Primary Care Provider Juliet Hoffman MD Primary Care Provider Unavailabl e Encounter Details Date Type Department Care Team Description 06/13/2014 Transfer Records Medical Records [address] [place] [address] Abstract, Provider Social History Tobacco Use Types [...] on filedocumented in this encounter Care Teams Manual Lathe Machinist Relationship Specialty Start Date End Date Sierra Edge MD PCP - General Internal Medicine 01/11/1308/12/15 Cody Murcia MD PCP - General Internal Medicine 08/13/15 05/19/21 Juliet Torres MD PCP - General Internal Medicine 06/18/21 documented as of this encounter
--- OUTSIDE RECORDS SUMMARY | 2024-11-19 11:36 | XMS_ITS | Encounter Summary ---
Author Organization [facility] Address [address] [place] [address] Care Team Providers Care Pigment And Lacquer Mixer Name Role Phone Sierra Edge MD Primary Care Provider Unavailable Cody Murcia MD Primary Care Provider Juliet Hoffman MD Primary Care Provider Unavailabl e Encounter Details Date Type Department Care Team Description 07/22/2014 Salesperson Men'S Furnishings Report Medical Records [address] [place] [address] Michi Campos MD Social History Tobacco Use [...] on filedocumented in this encounter Care Teams Pigment And Lacquer Mixer Relationship Specialty Start Date End Date Sierra Edge MD PCP - General Internal Medicine 01/11/1308/12/15 Cody Murcia MD PCP - General Internal Medicine 08/13/15 05/19/21 Juliet Torres MD PCP - General Internal Medicine 06/18/21 documented as of this encounter
--- OUTSIDE RECORDS SUMMARY | 2024-11-19 11:36 | XMS_ITS | Encounter Summary ---
Author Organization [facility] Address [address] [place] [address] Care Team Providers Care Front Desk Admin Name Role Phone Sierra Edge MD Primary Care Provider Unavailable Cody Murcia MD Primary Care Provider Juliet Hoffman MD Primary Care Provider Unavailabl e Encounter Details Date Type Department Care Team Description 10/04/2014 Release of Information Medical Records [address] [place] [id number] Abstract, Provider Social History Tobacco Use Types [...] on filedocumented in this encounter Care Teams Front Desk Admin Relationship Specialty Start Date End Date Sierra Edge MD PCP - General Internal Medicine 01/11/1308/12/15 Cody Murcia MD PCP - General Internal Medicine 08/13/15 05/19/21 Juliet Torres MD PCP - General Internal Medicine 06/18/21 documented as of this encounter
--- OUTSIDE RECORDS SUMMARY | 2024-11-19 11:36 | XMS_ITS | Encounter Summary ---
Author Organization [facility] Address [address] [place] [address] Care Team Providers Care Dry House Wheeler Name Role Phone Cody Murcia MD Primary Care Provider Juliet Hoffman MD Primary Care Provider Bhavani falcon Encounter Details Date Type Department Care Team Description 08/13/2015 Health Care Facility Administrator Report Medical Records [address] [place] [address] Latrice Perez MD [address] [place] [address] [address] [place] [address] Social History Tobacco Use Types [...] on filedocumented in this encounter Care Teams Dry House Wheeler Relationship Specialty Start Date End Date Cody Murcia MD PCP - General Internal Medicine 08/13/15 05/19/21 Juliet Torres MD PCP - General Internal Medicine 06/18/21 documented as of this encounter
--- OUTSIDE RECORDS SUMMARY | 2024-11-19 11:36 | XMS_ITS | Encounter Summary ---
Author Organization [facility] Address [address] [place] [address] Care Team Providers Care Axle Turner Name Role Phone Rafaela-Shruthi Valencia MD Primary Care Provider Unavailable Jesika Kim MD Primary Care Provider UnavailSierra Haider MD Primary Care Provider Unavailable Cody Murcia MD Primary Care Provider Juliet Hoffman MD Primary Care Provider Unavailabl e Encounter Details Date Type Department Care Team Description 09/15/2011 Hospital Medical Records [address] [place] [address] Felicia Alberto Social History Tobacco Use Types [...] on filedocumented in this encounter Care Teams Axle Turner Relationship Specialty Start Date End Date Shruthi Flores MD PCP - General 04/19/0601/09 Jesika Kim MD PCP - General Family Practice 01/10/13 01/10/13 Sierra Edge MD PCP - General Internal Medicine 01/11/1308/12/15 Cody Murcia MD PCP - General Internal Medicine 08/13/15 05/19/21 Juliet Torres MD PCP - General Internal Medicine 06/18/21 documented as of this encounter
--- OUTSIDE RECORDS SUMMARY | 2024-11-19 11:36 | XMS_ITS | Clinical Summary ---
Author Organization [facility] Address [address] [place] [address] Care Team Providers Care Marine Driller Name Role Phone Juliet Torres MD Primary Care Provider Unavailabl e Allergies Active Allergy Reactions Severity Noted Date Comments Amoxicillin Trihydrate 01/20/2007 SORES IN MOUTH Benzyl Ehr-Zamlggujjnwthsfg-Bajebre in 01/20/2007 PRE-SEIZURE Meperidine Hcl Itching/Pruritus 01/20/2007 [...] Capsules by mouth daily. 0 Active Black Vqgkaf-DfkTuolxxl-Xr gnol (Estroven Menopause Relief) Cap Take 1 [...] RISK PATIENTS (#2) 2035 11/22/2013 Care Teams Marine Driller Relationship Specialty Start Date End Date Juliet Torres MD PCP - General Internal Medicine 06/18/21
--- OUTSIDE RECORDS SUMMARY | 2024-11-19 11:36 | XMS_ITS | Encounter Summary ---
Author Organization [facility] Address [address] [place] [address] Care Team Providers Care Supervisor Policy Change Clerks Name Role Phone Sierra Edge MD Primary Care Provider Unavailable Cody Murcia MD Primary Care Provider Juliet Hoffman MD Primary Care Provider Unavailabl e Encounter Details Date Type Department Care Team Description 08/06/2015 [facility] Medical Records [address] [place] [address] Anya Luque PA-C Social History Tobacco Use [...] on filedocumented in this encounter Care Teams Supervisor Policy Change Clerks Relationship Specialty Start Date End Date Sierra Edge MD PCP - General Internal Medicine 01/11/1308/12/15 Cody Murcia MD PCP - General Internal Medicine 08/13/15 05/19/21 Juliet Torres MD PCP - General Internal Medicine 06/18/21 documented as of this encounter
--- OUTSIDE RECORDS SUMMARY | 2024-11-19 11:36 | XMS_ITS | Encounter Summary ---
Author Organization [facility] Address [address] [place] [address] Care Team Providers Care Entry Operator Name Role Phone Sierra Edge MD Primary Care Provider Unavailable Cody Murcia MD Primary Care Provider Juliet Hoffman MD Primary Care Provider Unavailabl e Encounter Details Date Type Department Care Team Description 05/15/2013 Transfer Records Medical Records [address] [place] [address] Abstract, Provider Social History Tobacco Use Types [...] on filedocumented in this encounter Care Teams Entry Operator Relationship Specialty Start Date End Date Sierra Edge MD PCP - General Internal Medicine 01/11/1308/12/15 Cody Murcia MD PCP - General Internal Medicine 08/13/15 05/19/21 Juliet Torres MD PCP - General Internal Medicine 06/18/21 documented as of this encounter
--- OUTSIDE RECORDS SUMMARY | 2024-11-19 11:36 | XMS_ITS | Encounter Summary ---
Author Organization [facility] Address [address] [place] [address] Care Team Providers Care Outpatient Clerk Name Role Phone Sierra Edge MD Primary Care Provider Unavailable Cody Murcia MD Primary Care Provider Juliet Hoffman MD Primary Care Provider Unavailabl e Encounter Details Date Type Department Care Team Description 11/21/2014 Sales Representative Uniforms Report Medical Records [address] [place] [id number] Mateo Zeng Social History Tobacco Use Types [...] on filedocumented in this encounter Care Teams Outpatient Clerk Relationship Specialty Start Date End Date Sierra Edge MD PCP - General Internal Medicine 01/11/1308/12/15 Cody Murcia MD PCP - General Internal Medicine 08/13/15 05/19/21 Juliet Torres MD PCP - General Internal Medicine 06/18/21 documented as of this encounter
--- OUTSIDE RECORDS SUMMARY | 2024-11-19 11:36 | XMS_ITS | Encounter Summary ---
Author Organization [facility] Address [address] [place] [address] Care Team Providers Care Dance Director Name Role Phone Sierra Edge MD Primary Care Provider Unavailable Cody Murcia MD Primary Care Provider Juliet Hoffman MD Primary Care Provider Unavailabl e Reason for Visit * Reason Onset Date Comments Form 12/25/2013 pt 1 form Encounter Details Date Type Department Care Team Description 12/25/2013 Telephone Adult Medicine [address] [address] Sierra Edge MD Form (pt 1 form) [...] Hendrix - 12/25/2013 2:33 PM EDT Patients [place] [facility] Pt. demographics and [place] [facility] Ins information verified YES Mailing address if different from home address NO Name of treating provider Sierra Edge Address/zip for treating provider [address] [place] [address] Phone # of treating provider [phone] What specialty is this provider? Internal Medicine [...] on filedocumented in this encounter Care Teams Dance Director Relationship Specialty Start Date End Date Sierra Edge MD PCP - General Internal Medicine 01/11/1308/12/15 Cody Murcia MD PCP - General Internal Medicine 08/13/15 05/19/21 Juliet Torres MD PCP - General Internal Medicine 06/18/21 documented as of this encounter
--- OUTSIDE RECORDS SUMMARY | 2024-11-19 11:36 | XMS_ITS | Encounter Summary ---
Author Organization [facility] Address [address] [place] [address] Care Team Providers Care Slip Mixer Name Role Phone Sierra Edge MD Primary Care Provider Unavailable Cody Murcia MD Primary Care Provider Juliet Hoffman MD Primary Care Provider Unavailabl e Encounter Details Date Type Department Care Team Description 12/24/2014 Pt. Non Urgent Medic al Question Adult Medicine - [address] [address] Sierra Edge MD Social History Tobacco Use [...] and things of that nature. thank you/ [phone] documented in this encounter Plan of Treatment Not on file documented as of this encounter Visit Diagnoses Not on filedocumented in this encounter Care Teams Slip Mixer Relationship Specialty Start Date End Date Sierra Edge MD PCP - General Internal Medicine 01/11/1308/12/15 Cody Murcia MD PCP - General Internal Medicine 08/13/15 05/19/21 Juliet Torres MD PCP - General Internal Medicine 06/18/21 documented as of this encounter
== END 2024-11-19 10:54 | disposition home or self-care (01) ==
PROVIDERS: PCP Internal Medicine; Visit Provider Nurse Practitioner Family
DX: M54.50 Low back pain, unspecified (principal); M54.2 Cervicalgia; G44.86 Cervicogenic headache; M47.812 Spondylosis without myelopathy or radiculopathy, cervical region
CPT/HCPCS: 99213; G2211

== ENCOUNTER → 2024-11-19 10:19 | Outpatient (BNVA) | payer OTHER, SELFPAY | PROVIDERS: PCP Internal Medicine; Visit Provider Nurse Practitioner Family | DX: M54.59 Other low back pain (principal); M54.2 Cervicalgia; M47.812 Spondylosis without myelopathy or radiculopathy, cervical region; G44.86 Cervicogenic headache | CPT/HCPCS: 99212 ==

== ENCOUNTER 2024-12-07 08:11 | Outpatient (AMB) | payer OTHER, SELFPAY ==
[2024-12-07 08:14] VITALS: BP 140/88; PULSE 92; O2SAT 97; BMI 43.8
--- NOTE | 2024-12-07 08:14 | A.OFFPC_ITS ---
Vital Signs 12/07/24 08:14 Height 5 ft 7 in Weight 280 lb BMI 43.8 BP 140/88 H Blood Pressure Location Lt brachial Position Sitting Pulse 92 Pulse Source Pulse Oximeter Pulse Oximetry (%) 97 Oxygen Delivery Method Room Air Intake Visit Reasons: Discuss New Pain Management Senior Bi Developer Required: No Accompanied by: Self / Same As Patient Allergies codeine [Tylenol-Codeine] Allergy (Severe, Verified 12/07/24 08:18) Vomiting compazine Allergy (Severe, Verified 12/07/24 08:18) Seizure hydromorphone [From DILAUDID] Allergy (Severe, Verified 12/07/24 08:18) VOMITING,DIZZY meperidine [Demerol] Allergy (Severe, Verified 12/07/24 08:18) Rash prednisone Allergy (Severe, Verified 12/07/24 08:18) skin blistering amoxicillin [AMOXICILLIN] Allergy (Intermediate, Verified 12/07/24 08:18) HIVES, THRUSH naproxen Adverse Reaction (Intermediate, Verified 12/07/24 08:18) Family History of Kidney Disease Medication List - Last Reconciled 12/07/24 by Juliet Torres MD amitriptyline 50 mg PO BEDTIME cane quad cane celecoxib 200 mg PO BID cyclobenzaprine 10 mg PO BID PRN duloxetine 60 mg PO DAILY fluticasone propionate 50 mcg/actuation 1 spray intranasal BID hydrocodone-acetaminophen 5-325 mg 1 tab PO .qhs PRN 30 days loratadine 10 mg PO DAILY 90 days lorazepam 0.5 mg PO DAILY PRN omeprazole 40 mg PO DAILY@0630 tolterodine (Detrol) 2 mg PO BID 90 days Ventolin HFA 90 mcg/actuation (albuterol sulfate) 2 puffs inhalation Q6H PRN 90 days NS Tobacco use date assessed: 10/26/24 Dental Screening Dental Screen Date: 10/26/24 HPI Discuss New Pain Management HPI Details History - The patient is a 54-year-old female wi th a history of anxiety, cervical headache, chronic pain syndrome, elevated blood pressure reading, morbid obesity, allergies, chronic GERD, stress incontinence, mild asthma presenting with chronic pain and cervical radiculitis. Causing tingling both arms and hands - She has a significant history of cervi fred radiculitis and fibromyalgia, accompanied by headaches and pain exacerbated by certain movements and postures. Patient has been seeing Dr. Campos neurology And then was referred to pain management from their office - Chronic pain management previously inv olved medications prescribed by a neurologist, including Celebrex, amitriptyline, and cyclobenzaprine, duloxetine and Celebrex without significant symptom relief. - The patient reports ineffectiveness of current medication regimen, including pain persistence despite using medications. - Discussion included the exploration of acupuncture as an alternative therapy for her pain, given past family successes and existing support with current treatment constraints. - The patient is addressing cervical rad iculitis exacerbation following an injection and is managing her condition with attention to postural modifications. - Currently following an adjusted diet p juliette and reports ongoing challenges with weight loss despite dietary compliance. Pain management [facility] recommended procedure with minimal risk of paralysis which patient does not want to take Lorazepam and Percocet refill was provided Patient is aware of side effects and that she will need a follow-up appointment for the refill She is taking both medications only as needed Neck x-ray done 2023 showed Multilevel cervical spondylosis most notable at C5-C6. 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 - Explore acupuncture therapy at [facility] for pain management. - Maintain proper posture, especially wh ile using a computer, to reduce nerve pressure. - Utilize appropriate neck support devic es such as a special neck pillow for bedtime. - Monitor medication usage, particularly Celebrex, to minimize cardiovascular risks. - follow-up 3 months Review of Systems General: No fever no chills neurological: no dizziness ear nose throat: No sore throat no hearing difficulty no ear pain cardiovascular: No syncope, no chest pain, no palpitations gastrointestinal: No nausea vomiting or diarrhea endocrine: No polyuria polydipsia no heat intolerance genitourinary: No dysuria skin: No new complaints Physical Exam general: No acute distress HEENT: No acute findings neck: Supple, but exam bypassed due to cervical radiculitis respiratory system: Able to talk in full sentences, no audible wheeze no stridor cardiovascular: S1-S2 regular in rate and rhythm gastrointestinal: No pain extremities: No new findings REMOTE SENSING RESEARCH SCIENTIST: Alert awake oriented x3 motor sensory intact skin: Normal turgor PFSH Medical History Arm numbness left Neck pain Concussion Numbness and tingling in left arm Diverticulosis Tubular adenoma Osteoarthritis of left knee Chronic GERD Morbid obesity IBS (irritable bowel syndrome) Depression Asthma Anxiety disorder Chronic back pain Neuropathy Cholecystitis Fibromyalgia Arthritis Surgical History Hx of knee surgery History of total left knee replacement History of esophagogastroduodenoscopy (EGD) H/O colonoscopy H/O knee surgery H/O oophorectomy Hx of section Family History Maternal Grandmother Ovarian ca Sister Slow to wake up after anesthesia Other Substance use disorder Social History Household Members: Spouse Housing: House Are you a primary pediatric care coordinator to a significant other at home: No Do you presently have visiting nurse or other home services: No Alcohol intake: current Alcohol intake frequency: holidays/special occasions only Alcohol type: beer Comment: COUNTS CORRECT Patient Tobacco Use Status: Former Tobacco user Tobacco use type: Cigarette Years Smoked: 15 years e-Cigarette/Vaping Use: Never Used Substance Use Type: Marijuana Advance Directives Date on File: 04/13/23 service: No 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al status: unemployed 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 1. Little interest or pleasure in doing things: several days 2. Feeling down, depressed, or hopeless: several days 3. Trouble falling or staying asleep, or sleeping too much: nearly every day 4. Feeling tired or having little energy: more than half the days 5. Poor appetite or overeating: several days 6. Feeling bad about yourself - or that you are a failure or have let yourself or your family down: more than half the days 7. Trouble concentrating on things, such as reading the newspaper or watching television: several days 8. Moving or speaking so slowly that other people could have noticed. Or the opposite - being so fidgety or restless that you have been moving around a lot more than usual: not at all 9. Thoughts that you would be better off or of hurting yourself in some way: not at all Total score: 11 Depression Screening Interpretation: Positive Depression Screening Follow-up: Existing condition and In treatment Depression Screening Done: Yes 93476 - PHQ-9 Billing: Yes Source: Developed by Drs. Joshua Munoz, Claudia Taylor, Kojo Frye and colleagues, with an educational jessica from [employer]. Thrive Questionnaire Date Thrive assessed: 12/07/24 I am a: Patient What is your living situation today?: I choose not to answer this question Within the past 12 months, did the food you bought not last and you didn't have the money to get more?: Often true Within the past 12 months, did you worry whether your food would run out before you got money to buy more?: Often true Do you have trouble paying for medicines?: No Do you have trouble getting transportation to medical appointments?: No Do you have trouble paying your heating and electricity bill?: Yes Do you have trouble taking care of your child, family member or friend?: I choose not to answer this question Do you have trouble with day-to-day activities such as bathing, preparing meals, shopping, managing finances, etc.?: Yes Are you currently unemployed and looking for a job?: I choose not to answer this question Are you interested in more education?: No Please select the resources that you would like help with: None THRIVE Score: 3 MIKE-7 AMB Questionnaire MIKE-7 Date MIKE - 7 assessed: 10/26/24 Source: Developed by Drs. Joshua Munoz, Claudia Taylor, Kojo Frye and colleagues, with an educational jessica from [employer]. Physical exam (Primary Care) Vital Signs: Last Vital Signs Pulse 92 12/07/24 08:14 BP 140/88 H 12/07/24 08:14 Pulse Ox 97 12/07/24 08:14 Oxygen Delivery Method Room Air 12/07/24 08:14 BMI result Body Mass Index 43.8 Tobacco/Smoking Status: Tobacco use Status Tobacco use date assessed 10/26/24 12/07/24 08:22 Patient Tobacco Use Status Former Tobacco user 12/07/24 08:22 Tobacco use type Cigarette 12/07/24 08:22 e-Cigarette/Vaping Use Never Used 12/07/24 08:22 PHQ-9: PHQ-9 Score PHQ-9: Total score 11 12/07/24 08:55 Depression Screening Interpretation: Positive Depression Screening Follow-up: Existing condition and In treatment Thrive Assessment: Date of Thrive Assessment Date Thrive assessed 12/07/24 12/07/24 08:22 Coding Level of Care Code Est Pt Level 5 (17170) Diagnoses Radiculitis of left cervical region M54.12 Degeneration of intervertebral disc at C5-C6 level M50.322 Mid-cervical spinal level: C5-C6 Spinal region: mid-cervical Lumbar pain M54.5 Neck Pain M54.2 Cervicogenic headache G44.86 Cervical spondylosis M47.812 Anxiety, generalized F41.1 Intractable migraine without status migrainosus, unspecified migraine type G43.919 Intractability: intractable Migraine type: unspecified Status migrainosus presence: without status migrainosus Muscle spasm M62.838 Pain management R52 Recurrent major depressive disorder, in full remission F33.42 Active/Remission status: in full remission Additional Codes PHQ-9 - 63975 - PHQ-9 Billing: Yes ([id number]) Time Spent (min) 40 Comment Reviewing chart, specialist notes, [id number], coordination of care Assessment & Plan Assessment & Plan (1) Radiculitis of left cervical region: Code(s): M54.12 - Radiculopathy, cervical region Category: Medical (2) Degenerative disc disease: Category: Medical Qualifiers: Mid-cervical spinal level: C5-C6 Spinal region: mid-cervical Qualified Code(s): M50.322 - Other cervical disc degeneration at C5-C6 level (3) Lumbar pain: Code(s): M54.5 - Low back pain Category: Medical (4) Neck Pain: Code(s): M54.2 - Cervicalgia Category: Medical (5) Cervicogenic headache: Code(s): G44.86 - Cervicogenic headache Category: Medical (6) Cervical spondylosis: Code(s): M47.812 - Spondylosis without myelopathy or radiculopathy, cervical region Category: Medical (7) Anxiety, generalized: Code(s): F41.1 - Generalized anxiety disorder Category: Medical (8) Migraine headache: Code(s): G43.909 - Migraine, unspecified, not intractable, without status migrainosus Category: Medical Qualifiers: Intractability: intractable Migraine type: unspecified Status migrainosus presence: without status migrainosus Qualified Code(s): G43.919 - Migraine, unspecified, intractable, without status migrainosus (9) Muscle spasm: Code(s): M62.838 - Other muscle spasm Category: Medical (10) Pain management: Code(s): R52 - Pain, unspecified Category: Medical (11) Major depression, recurrent: Code(s): F33.9 - Major depressive disorder, recurrent, unspecified Category: Medical Qualifiers: Active/Remission status: in full remission Qualified Code(s): F33.42 - Major depressive disorder, recurrent, in full remission Plan History - The patient is a 54-year-old female with a history of anxiety, cervical headache, chronic pain syndrome, elevated blood pressure reading, morbid obesity, allergies, chronic GERD, stress incontinence, mild asthma presenting with chronic pain and cervical radiculitis. Causing tingling both arms and hands - She has a significant history of cervical radiculitis and fibromyalgia, accompanied by headaches and pain exacerbated by certain movements and postures. Patient has been seeing Dr. Campos neurology And then was referred to pain management from their office - Chronic pain management previously involved medications prescribed by a neurologist, including Celebrex, amitriptyline, and cyclobenzaprine, duloxetine and Celebrex without significant symptom relief. - The patient reports ineffectiveness of current medication regimen, including pain persistence despite using medications. - Discussion included the exploration of acupuncture as an alternative therapy for her pain, given past family successes and existing support with current treatment constraints. - The patient is addressing cervical radiculitis exacerbation following an injec tion and is managing her condition with attention to postural modifications. - Currently following an adjusted diet plan and reports ongoing challenges with weight loss despite dietary compliance. Pain management [facility] recommended procedure with minimal risk of paralysis which patient does not want to take Lorazepam and Percocet refill was provided Patient is aware of side effects and that she will need a follow-up appointment for the refill She is taking both medications only as needed Neck x-ray done 2023 showed Multilevel cervical spondylosis most notable at C5-C6. 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 - Explore acupuncture therapy at recommended clinics for pain management. - Maintain proper posture, especially while using a computer, to reduce nerve pressure. - Utilize appropriate neck support devices such as a special neck pillow for bedtime. - Monitor medication usage, particularly Celebrex, to minimize cardiovascular risks. - follow-up 3 months Orders: Referrals Acupuncture Referral M54.12 - Radiculopathy, cervical region Medications: Changed From celecoxib 200 mg PO BID 60 caps 0RF To celecoxib 200 mg PO ONCE 90 caps 0RF Refilled lorazepam 0.5 mg PO DAILY PRN 30 tabs 0RF anxiety hydrocodone-acetaminophen 5-325 mg Partial Fill upon patient request. 1 tab PO .qhs PRN 30 tabs 0RF pain 30 days G44.86 - Cervicogenic headache, M47.812 - Spondylosis without myelopathy or radiculopathy, cervical region
== END 2024-12-07 08:39 | disposition home or self-care (01) ==
LOC: HO.HMCC 08:12
PROVIDERS: PCP Internal Medicine; Visit Provider Internal Medicine
DX: M54.12 Radiculopathy, cervical region (principal); F33.42 Major depressive disorder, recurrent, in full remission; M50.322 Other cervical disc degeneration at C5-C6 level; M54.50 Low back pain, unspecified; M54.2 Cervicalgia; G44.86 Cervicogenic headache; M47.812 Spondylosis without myelopathy or radiculopathy, cervical region; F41.1 Generalized anxiety disorder; G43.919 Migraine, unspecified, intractable, without status migrainosus; M62.838 Other muscle spasm; R52 Pain, unspecified

== ENCOUNTER → 2024-12-07 08:11 | Outpatient (BNVA) | payer OTHER, SELFPAY | PROVIDERS: PCP Internal Medicine; Visit Provider Internal Medicine | DX: F41.9 Anxiety disorder, unspecified (principal); G89.4 Chronic pain syndrome; E66.01 Morbid (severe) obesity due to excess calories; K21.9 Gastro-esophageal reflux disease without esophagitis; N39.3 Stress incontinence (female) (male); J45.909 Unspecified asthma, uncomplicated; M50.322 Other cervical disc degeneration at C5-C6 level; M54.50 Low back pain, unspecified; G44.86 Cervicogenic headache; M47.22 Other spondylosis with radiculopathy, cervical region; F41.1 Generalized anxiety disorder; G43.919 Migraine, unspecified, intractable, without status migrainosus; M62.838 Other muscle spasm; F33.42 Major depressive disorder, recurrent, in full remission | CPT/HCPCS: 96127; 99212 ==

== ENCOUNTER 2025-01-09 14:05 | Outpatient (AMB) | payer OTHER, SELFPAY ==
[2025-01-09 14:08] VITALS: BP 116/72; PULSE 102; O2SAT 96; BMI 43.8
--- NOTE | 2025-01-09 14:08 | MHC.OFFVIS ---
Vital Signs 01/09/25 14:08 Height 5 ft 7 in Weight 280 lb BMI 43.8 BP 116/72 Blood Pressure Location Rt brachial Position Sitting Pulse 102 H Pulse Source Pulse Oximeter Pulse Oximetry (%) 96 Oxygen Delivery Method Room Air Intake Visit Reasons: 2m f/u Intake Note: ESTABLISHED PATIENT for GERD + IBS mgmt. Chief Complaint; Pt denies any GI sx or concerns at this time. Pt acknowledges that she is due for colo and is agreeable to have discussion today. Pt reports having less abd pain recently and no reflux with PPI tx. No additional concerns at this time. Catheter Finisher And Inspector Required: No Accompanied by: Self / Same As Patient Allergies codeine [Tylenol-Codeine] Allergy (Severe, Verified 01/09/25 14:08) Vomiting compazine Allergy (Severe, Verified 01/09/25 14:08) Seizure hydromorphone [From DILAUDID] Allergy (Severe, Verified 01/09/25 14:08) VOMITING,DIZZY meperidine [Demerol] Allergy (Severe, Verified 01/09/25 14:08) Rash prednisone Allergy (Severe, Verified 01/09/25 14:08) skin blistering amoxicillin [AMOXICILLIN] Allergy (Intermediate, Verified 01/09/25 14:08) HIVES, THRUSH naproxen Adverse Reaction (Intermediate, Verified 01/09/25 14:08) Family History of Kidney Disease HPI HPI 2m f/u: Details: LAST VISIT Diverticulosis Tubular adenoma IBS (irritable bowel syndrome) Chronic GERD Colitis Nausea & vomiting Diarrhea Plan History of IBS most likely functional diarrhea and now patient is on antibiotic. Unspecific colitis/diverticulitis most likely from frequent diarrhea and inability to empty her bowels well. Patient has moderate diverticulosis in the left side of her colon. Patient will finish all of her antibiotics. She can advance her diet. Will send her script for Citrucel and she can take it 1-2 daily. Patient continues to have nausea, will send her script for Reglan. Patient is to call our office in a couple of weeks if her symptoms will continue or get worse she is to go back to emergency room for further workup. Patient had no leukocytosis when in the ED. continue omeprazole. Avoid dietary triggers and late night snacking. Staying upright for minimum 3 hours after meals discussed with patient. patient will return in 2 months. Patient is due to go for colonoscopy we will schedule when able. She is agreeable to this plan and verbalizes understanding of instructions. She was given the opportunity to ask questions and all questions answered. ? Thank you for allowing me to participate in her care Medications New metoclopramide HCl (Reglan) 5 mg PO Q8-10H 30 tabs 0RF K31.84 methylcellulose (laxative) (Citrucel) take it with full glass of water 500 mg PO DAILY 90 tabs 2RF K59.00 TODAY'S VISIT Patient is here today for follow-up and to discuss going for colonoscopy. Patient denies to GI symptoms today. Patient reports that she changed her diet since last visit. Following low FODMAP diet and has been feeling well. Patient is avoiding lactose and gluten. Has not eat too many carbs, completely avoids sugar. Patient lost about 13 lb so far. Patient denies any dyspepsia, dysphagia or odynophagia. Denies any melena, hematochezia, unintentional weight loss or ribbon like stools. Patient reports to be feeling well. Continues to take omeprazole daily. Reports that she is moving her bowels without any issues. Denies any issues with anesthesia in the past. Patient is overdue to go for colonoscopy. Patient is not on any anticoagulation therapy. Denies any respiratory or cardiac symptoms. [facility] Medical History Arm numbness left Neck pain Concussion Numbness and tingling in left arm Diverticulosis Tubular adenoma Osteoarthritis of left knee Chronic GERD Morbid obesity IBS (irritable bowel syndrome) Depression Asthma Anxiety disorder Chronic back pain Neuropathy Cholecystitis Fibromyalgia Arthritis Surgical History Hx of knee surgery History of total left knee replacement History of esophagogastroduodenoscopy (EGD) H/O colonoscopy H/O knee surgery H/O oophorectomy Hx of section Family History Maternal Grandmother Ovarian ca Sister Slow to wake up after anesthesia Other Substance use disorder Social History Household Members: Spouse Housing: House Are you a primary managed care analyst to a significant other at home: No Do you presently have visiting nurse or other home services: No Alcohol intake: current Alcohol intake frequency: holidays/special occasions only Alcohol type: beer Comment: COUNTS CORRECT Patient Tobacco Use Status: Former Tobacco user Tobacco use type: Cigarette Years Smoked: 15 years e-Cigarette/Vaping Use: Never Used Substance Use Type: Marijuana Advance Directives Date on File: 04/13/23 service: No 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al status: unemployed 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 Cognitive needs: No Hearing needs: No Vision needs: No Female Reproductive History Menstrual Age of Menarche: 12 Review of Systems Const Denies weight gain and Denies weight loss ENT Reports no additional complaints, Denies dysphagia and Denies odynophagia Card Reports no additional complaints Resp Reports no additional complaints GI Reports abdominal pain (LLQ), Denies belching, Denies melena, Reports bloating, Denies change in bowel habits, Denies dysphagia, Denies excessive flatus, Denies dyspepsia, Denies heartburn, Denies diarrhea, Reports loose stools, Reports nausea, Denies odynophagia and Denies vomiting Reports no additional complaints Musc Reports no additional complaints Neuro Reports no additional complaints Psych Reports no additional complaints Endo Reports no additional complaints Physical Exam Vital Signs: Last Vital Signs Pulse 102 H 01/09/25 14:08 BP 116/72 01/09/25 14:08 Pulse Ox 96 01/09/25 14:08 Oxygen Delivery Method Room Air 01/09/25 14:08 BMI result Body Mass Index 43.8 Const General: healthy appearing and no acute distress Nutritional Appearance: obese Orientation/consciousness: patient oriented x3 Resp Effort & Inspection: normal respiratory effort, able to speak in complete sentences, no tracheal deviation and symmetric chest movement Auscultation: clear to auscultation bilaterally Cardio Rate: regular rate GI Inspection: Yes normal to inspection, No distended and Yes obesity Palpation (GI): Soft to palpation, not firm, nontender and No hepatosplenomegaly present Auscultation: normal bowel sounds General: Yes no CVA tenderness Back/Spine/Pelvis Back: no CVA tenderness Skin General skin exam: elasticity normal, turgor normal and dry skin Neuro General: patient oriented x3 Psych Appearance: grossly normal Mental Status: mental status grossly normal Assessment & Plan Assessment & Plan (1) Diverticulosis: Code(s): K57.90 - Diverticulosis of intestine, part unspecified, without perforation or abscess without bleeding Category: Medical (2) Tubular adenoma: Code(s): D36.9 - Benign neoplasm, unspecified site Category: Medical (3) IBS (irritable bowel syndrome): Code(s): K58.9 - Irritable bowel syndrome, unspecified Category: Medical Qualifiers: Irritable bowel syndrome type: with constipation Qualified Code(s): K58.1 - Irritable bowel syndrome with constipation (4) Chronic GERD: Code(s): K21.9 - Gastro-esophageal reflux disease without esophagitis Category: Medical (5) Colitis: Code(s): K52.9 - Noninfective gastroenteritis and colitis, unspecified (6) Screen for colon cancer: Code(s): Z12.11 - Encounter for screening for malignant neoplasm of colon Plan Continue current PPI treatment. Continue avoiding dietary triggers. Patient is doing very well following GERD and low FODMAP diet. Patient is avoiding lactose and gluten. So far lost 13 lb. She is overdue to go for colonoscopy. No issues with anesthesia in the past. No history of sleep apnea. Not on any anticoagulation medication patient denies any cardiac or respiratory symptoms. What to expect before during and after procedure discussed with patient. Stressed the importance of good bowel prep and clear liquid diet day before procedure. Patient will follow up after the procedure, sooner on as needed basis. Patient is agreeable to this plan and verbalizes understanding of instructions. She was given the opportunity to ask questions and all questions answered. Thank you for allowing me to participate in her care Coding Level of Care Code Est Pt Level 4 (95349) Complex EM visit Add On G2211 Diagnoses Diverticulosis K57.90 Tubular adenoma D36.9 Irritable bowel syndrome with constipation K58.1 Irritable bowel syndrome type: with constipation Chronic GERD K21.9 Colitis K52.9 Screen for colon cancer Z12.11 Time Spent (min) 35 Comment 25 minutes spent with patient and additional 10 minutes spent reviewing her records
--- OUTSIDE RECORDS SUMMARY | 2025-01-09 15:18 | XMS_ITS | Encounter Summary ---
Author Organization [facility] Address [address] [place] [address] Care Team Providers Care Bowling Ball Molder Name Role Phone Sierra Edge MD Primary Care Provider Unavailable Cody Murcia MD Primary Care Provider Juliet Hoffman MD Primary Care Provider Unavailabl e Reason for Visit * Reason Onset Date Comments PT-1 06/26/2014 Encounter Details Date Type Department Care Team Description 06/26/2014 Telephone Adult Medicine [address] [address] Sierra Edge MD PT-1 Social History Tobacco [...] Bailey - 06/26/2014 12:40 PM EDT Patients [place] [facility] Pt. demographics and [place] [facility] Ins information verified YES Is this a NEW request or a Renewal? new Mailing address: [address] [place] [address] Is the mailing address accurate? YES. If no, update all screens in Registration Has [place] [facility] Insurance coverage been verified? YES Name (first & last) of treating provider Dr Varela Reason the patient is seeing the above provider: foot pain Address/zip for treating provider [address] [place], [place] Phone # of treating provider [phone] What specialty is this provider? podiatry How [...] on filedocumented in this encounter Care Teams Bowling Ball Molder Relationship Specialty Start Date End Date Sierra Edge MD PCP - General Internal Medicine 01/11/1308/12/15 Cody Murcia MD PCP - General Internal Medicine 08/13/15 05/19/21 Juliet Torres MD PCP - General Internal Medicine 06/18/21 documented as of this encounter
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
--- OUTSIDE RECORDS SUMMARY | 2025-01-09 15:18 | XMS_ITS | Encounter Summary ---
Author Organization [facility] Address [address] [place] [address] Care Team Providers Care Clinical Nurse Occupational Medicine Name Role Phone Sierra Edge MD Primary Care Provider Unavailable Cody Murcia MD Primary Care Provider Juliet Hoffman MD Primary Care Provider Unavailabl e Encounter Details Date Type Department Care Team Description 06/13/2014 Transfer Records Medical Records [address] [place] [address] Abstract, Provider Social History Tobacco Use Types [...] on filedocumented in this encounter Care Teams Clinical Nurse Occupational Medicine Relationship Specialty Start Date End Date Sierra Edge MD PCP - General Internal Medicine 01/11/1308/12/15 Cody Murica MD PCP - General Internal Medicine 08/13/15 05/19/21 Juliet Torres MD PCP - General Internal Medicine 06/18/21 documented as of this encounter
--- OUTSIDE RECORDS SUMMARY | 2025-01-09 15:18 | XMS_ITS | Encounter Summary ---
Author Organization [facility] Address [address] [place] [address] Care Team Providers Care Delinquent Notice Machine Operator Name Role Phone Rafaela-Shruthi Valencia MD Primary Care Provider Unavailable Jesika Kim MD Primary Care Provider UnavailSierra Haider MD Primary Care Provider Unavailable Cody Murcia MD Primary Care Provider Juliet Hoffman MD Primary Care Provider Unavailabl e Encounter Details Date Type Department Care Team Description 09/15/2011 Hospital Medical Records [address] [place] [address] Felicia Alberto Social History Tobacco Use Types [...] on filedocumented in this encounter Care Teams Delinquent Notice Machine Operator Relationship Specialty Start Date End Date Shruthi Flores MD PCP - General 04/19/0601/09 Jesika Kim MD PCP - General Family Practice 01/10/13 01/10/13 Sierra Edge MD PCP - General Internal Medicine 01/11/1308/12/15 Cody Murcia MD PCP - General Internal Medicine 08/13/15 05/19/21 Juliet Torres MD PCP - General Internal Medicine 06/18/21 documented as of this encounter
--- OUTSIDE RECORDS SUMMARY | 2025-01-09 15:18 | XMS_ITS | Encounter Summary ---
Author Organization [facility] Address [address] [place] [address] Care Team Providers Care Sales & Service Associate Name Role Phone Sierra Edge MD Primary Care Provider Unavailable Cody Murcia MD Primary Care Provider Juliet Hoffman MD Primary Care Provider Unavailabl e Encounter Details Date Type Department Care Team Description 10/10/2014 First Responder Report Medical Records [address] [place] [address] Michi Campos MD Social History Tobacco Use [...] filedocumented in this encounter Care Teams Sales & Service Associate Relationship Specialty Start Date End Date Sierra Edge MD PCP - General Internal Medicine 01/11/1308/12/15 Cody Murcia MD PCP - General Internal Medicine 08/13/15 05/19/21 Juliet Torres MD PCP - General Internal Medicine 06/18/21 documented as of this encounter
--- OUTSIDE RECORDS SUMMARY | 2025-01-09 15:18 | XMS_ITS | Encounter Summary ---
Author Organization [facility] Address [address] [place] [address] Care Team Providers Care Fire Apparatus Sprinkler Inspector Name Role Phone Sierra Edge MD Primary Care Provider Unavailable Cody Murcia MD Primary Care Provider Juliet Hoffman MD Primary Care Provider Unavailabl e Encounter Details Date Type Department Care Team Description 05/29/2015 Pt. Non Urgent Medic al Question Adult Medicine - [address] [address] Sierra Edge MD Social History Tobacco Use [...] as of this encounter Progress Notes * Earnest Borja M.A. - 05/29/2015 1:49 PM EDTFrom: Barbara Harris To: Sierra Edge MD Sent: 05/29/2015 1:21 PM EDT Subject: medication I am sending this because i need a refill on my nasal spray also because my therapist wanted me to ask for an increase in my prozac to 50 mg instead of 40 mg if you would like to verify with her , her name is Brit Kendall at [facility] her number is [phone]. thank you for your help in both of these matters. documented in this encounter Plan of Treatment Not on file documented as of this encounter Visit Diagnoses Not on filedocumented in this encounter Care Teams Fire Apparatus Sprinkler Inspector Relationship Specialty Start Date End Date Sierra Edge MD PCP - General Internal Medicine 01/11/1308/12/15 Cody Murica MD PCP - General Internal Medicine 08/13/15 05/19/21 Juliet Torres MD PCP - General Internal Medicine 06/18/21 documented as of this encounter
--- OUTSIDE RECORDS SUMMARY | 2025-01-09 15:18 | XMS_ITS | Encounter Summary ---
Author Organization [facility] Address [address] [place] [address] Care Team Providers Care Video Game Technician Name Role Phone Sierra Edge MD Primary Care Provider Unavailable Cody Murcia MD Primary Care Provider Juliet Hoffman MD Primary Care Provider Unavailabl e Encounter Details Date Type Department Care Team Description 01/17/2014 International Marketing Specialist Report Medical Records [address] [place] [address] Michi Campos MD Social History Tobacco Use [...] on filedocumented in this encounter Care Teams Video Game Technician Relationship Specialty Start Date End Date Sierra Edge MD PCP - General Internal Medicine 01/11/1308/12/15 Cody Murcia MD PCP - General Internal Medicine 08/13/15 05/19/21 Juliet Torres MD PCP - General Internal Medicine 06/18/21 documented as of this encounter
--- OUTSIDE RECORDS SUMMARY | 2025-01-09 15:18 | XMS_ITS | Encounter Summary ---
Author Organization [facility] Address [address] [place] [address] Care Team Providers Care Nutritionist Public Health Name Role Phone Sierra Edge MD Primary Care Provider Unavailable Cody Murcia MD Primary Care Provider Juliet Hoffman MD Primary Care Provider Unavailabl e Encounter Details Date Type Department Care Team Description 04/25/2014 Pt. Non Urgent Medic al Question Adult Medicine [address] [address] Sierra Edge MD Social History Tobacco Use [...] on filedocumented in this encounter Care Teams Nutritionist Public Health Relationship Specialty Start Date End Date Sierra Edge MD PCP - General Internal Medicine 01/11/1308/12/15 Cody Murcia MD PCP - General Internal Medicine 08/13/15 05/19/21 Juliet Torres MD PCP - General Internal Medicine 06/18/21 documented as of this encounter
--- OUTSIDE RECORDS SUMMARY | 2025-01-09 15:18 | XMS_ITS | Clinical Summary ---
Author Organization [facility] Address [address] [place] [address] Care Team Providers Care Canvass Manager Name Role Phone Juliet Torres MD Primary Care Provider Unavailabl e Allergies Active Allergy Reactions Severity Noted Date Comments Amoxicillin Trihydrate 01/20/2007 SORES IN MOUTH Benzyl Gzz-Flirznegancqgqph-Kwahbqh in 01/20/2007 PRE-SEIZURE Meperidine Hcl Itching/Pruritus 01/20/2007 [...] Capsules by mouth daily. 0 Active Black Lstirj-KfnSdjpnxy-Mf gnol (Estroven Menopause Relief) Cap Take 1 [...] 2020 SHINGLES VACCINE (1 of 2) 2020 BMI CHECK/ADVISE 09/12/2024 06/23/2021, 08/2021, 03/28/2015, Additional history exists DEPRESSION SCREENING/FOLLOWUP 09/12/2024, 07/24/2015, 11/22/2013, Additional history exists SOCIAL NEEDS SCREENING 09/12/2024 INFLUENZA (Season Ended) 2025 07/10/2013 PNEUMOCOCCAL VACCINE FOR HIG H RISK PATIENTS (#2) 2035 11/22/2013 Care Teams Canvass Manager Relationship Specialty Start Date End Date Juliet Torres MD PCP - General Internal Medicine 06/18/21
--- OUTSIDE RECORDS SUMMARY | 2025-01-09 15:18 | XMS_ITS | Encounter Summary ---
Author Organization [facility] Address [address] [place] [address] Care Team Providers Care Electrician Shop Name Role Phone Sierra Edge MD Primary Care Provider Unavailable Cody Murcia MD Primary Care Provider Juliet Hoffman MD Primary Care Provider Unavailabl e Encounter Details Date Type Department Care Team Description 08/07/2013 German Instructor Report Medical Records [address] [place] [address] Michi Campos MD Social History Tobacco Use [...] on filedocumented in this encounter Care Teams Electrician Shop Relationship Specialty Start Date End Date Sierra Edge MD PCP - General Internal Medicine 01/11/1308/12/15 Cody Murcia MD PCP - General Internal Medicine 08/13/15 05/19/21 Juliet Torres MD PCP - General Internal Medicine 06/18/21 documented as of this encounter
--- OUTSIDE RECORDS SUMMARY | 2025-01-09 15:18 | XMS_ITS | Encounter Summary ---
Author Organization [facility] Address [address] [place] [address] Care Team Providers Care Director Strategic Planning Name Role Phone Shruthi Flores MD Primary Care Provider Unavailable Jesika Kim MD Primary Care Provider Sierra Al MD Primary Care Provider Unavailable Cody Murcia MD Primary Care Provider Juliet Hoffman MD Primary Care Provider Unavailabl e Encounter Details Date Type Department Care Team Description 04/16/2011 Release of Information Medical Records [address] [place] [id number] Abstract, Provider Social History Tobacco Use Types [...] filedocumented in this encounter Care Teams Director Strategic Planning Relationship Specialty Start Date End Date Shruthi Flores MD PCP - General 04/19/0601/09 Jesika Kim MD PCP - General Family Practice 01/10/13 01/10/13 Sierra Edge MD PCP - General Internal Medicine 01/11/1308/12/15 Cody Murcia MD PCP - General Internal Medicine 08/13/15 05/19/21 Juliet Torres MD PCP - General Internal Medicine 06/18/21 documented as of this encounter
--- OUTSIDE RECORDS SUMMARY | 2025-01-09 15:18 | XMS_ITS | Encounter Summary ---
Author Organization [facility] Address [address] [place] [address] Care Team Providers Care Combat Systems Officer Name Role Phone Sierra Edge MD Primary Care Provider Unavailable Cody Murcia MD Primary Care Provider Juliet Hoffman MD Primary Care Provider Unavailabl e Encounter Details Date Type Department Care Team Description 04/26/2013 Market Gardener Report Medical Records [address] [place] [address] Valerie Riggins NP Social History Tobacco Use [...] on filedocumented in this encounter Care Teams Combat Systems Officer Relationship Specialty Start Date End Date Sierra Edge MD PCP - General Internal Medicine 01/11/1308/12/15 Cody Murcia MD PCP - General Internal Medicine 08/13/15 05/19/21 Juliet Torres MD PCP - General Internal Medicine 06/18/21 documented as of this encounter
--- OUTSIDE RECORDS SUMMARY | 2025-01-09 15:18 | XMS_ITS | Encounter Summary ---
Author Organization [facility] Address [address] [place] [address] Care Team Providers Care Garde Manger Name Role Phone Sierra Edge MD Primary Care Provider Unavailable Cody Murcia MD Primary Care Provider Juliet Hoffman MD Primary Care Provider Unavailabl e Reason for Visit * Reason Comments E-prescribe Rx Request Encounter Details Date Type Department Care Team Description 02/03/2014 Refill Adult Medicine [address] [address] Karissa Mckeon PA-C E-prescribe Rx Request Social [...] NO Patients current insurance carrier is: Payor: [employer] FFS Plan: FFS HMO $0 [place] [id number] Product Type: MEDICAID RISK documented in this encounter Plan of Treatment Not on file documented as of this encounter Visit Diagnoses Not on filedocumented in this encounter Care Teams Garde Manger Relationship Specialty Start Date End Date Sierra Edge MD PCP - General Internal Medicine 01/11/1308/12/15 Cody Murcia MD PCP - General Internal Medicine 08/13/15 05/19/21 Juliet Torres MD PCP - General Internal Medicine 06/18/21 documented as of this encounter
--- OUTSIDE RECORDS SUMMARY | 2025-01-09 15:18 | XMS_ITS | Encounter Summary ---
Author Organization [facility] Address [address] [place] [address] Care Team Providers Care In Shop Service Technician Name Role Phone Sierra Edge MD Primary Care Provider Unavailable Cody Murcia MD Primary Care Provider Juliet Hoffman MD Primary Care Provider Unavailabl e Encounter Details Date Type Department Care Team Description 11/21/2014 Braider Tender Report Medical Records [address] [place] [address] Mateo Zeng Social History Tobacco Use Types [...] on filedocumented in this encounter Care Teams In Shop Service Technician Relationship Specialty Start Date End Date Sierra Edge MD PCP - General Internal Medicine 01/11/1308/12/15 Cody Murcia MD PCP - General Internal Medicine 08/13/15 05/19/21 Juliet Torres MD PCP - General Internal Medicine 06/18/21 documented as of this encounter
--- OUTSIDE RECORDS SUMMARY | 2025-01-09 15:18 | XMS_ITS | Encounter Summary ---
Author Organization [facility] Address [address] [place] [address] Care Team Providers Care Community Development Coordinator Name Role Phone Sierra Edge MD Primary Care Provider Unavailable Cody Murcia MD Primary Care Provider Juliet Hoffman MD Primary Care Provider Unavailabl e Encounter Details Date Type Department Care Team Description 04/15/2014 Pt. Non Urgent Medic al Question Adult Medicine [address] [address] Sierra Edge MD Social History Tobacco Use [...] Subject: Pt 1 I just spoke with [facility] and i have an [...] filedocumented in this encounter Care Teams Community Development Coordinator Relationship Specialty Start Date End Date Sierra Edge MD PCP - General Internal Medicine 01/11/1308/12/15 Cody Murcia MD PCP - General Internal Medicine 08/13/15 05/19/21 Juliet Torres MD PCP - General Internal Medicine 06/18/21 documented as of this encounter
--- OUTSIDE RECORDS SUMMARY | 2025-01-09 15:18 | XMS_ITS | Encounter Summary ---
Author Organization [facility] Address [address] [place] [address] Care Team Providers Care Kids Club Attendant Name Role Phone Rafaela-Shruthi Valencia MD Primary Care Provider Unavailable Jesika Kim MD Primary Care Provider Unavaillucien e Sierra Edge MD Primary Care Provider Unavailable Cody Murcia MD Primary Care Provider Juliet Hoffman MD Primary Care Provider Unavailabl e Encounter Details Date Type Department Care Team Description 04/20/2010 Night Triage Doc Medical Records [address] [place] [address] Abstract, Provider Social History Tobacco Use Types [...] on filedocumented in this encounter Care Teams Kids Club Attendant Relationship Specialty Start Date End Date Shruthi Flores MD PCP - General 04/19/0601/09 Jesika Kim MD PCP - General Family Practice 01/10/13 01/10/13 Sierra Edge MD PCP - General Internal Medicine 01/11/1308/12/15 Cody Murcia MD PCP - General Internal Medicine 08/13/15 05/19/21 Juliet Torres MD PCP - General Internal Medicine 06/18/21 documented as of this encounter
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
--- OUTSIDE RECORDS SUMMARY | 2025-01-09 15:18 | XMS_ITS | Encounter Summary ---
Author Organization [facility] Address [address] [place] [address] Care Team Providers Care Sales Enablement Consultant Name Role Phone Sierra Edge MD Primary Care Provider Unavailable Cody Murcia MD Primary Care Provider Juliet Hoffman MD Primary Care Provider Unavailabl e Encounter Details Date Type Department Care Team Description 02/05/2014 Investigation Division Lieutenant Report Medical Records [address] [place] [address] Michi Campos MD Social History Tobacco Use [...] filedocumented in this encounter Care Teams Sales Enablement Consultant Relationship Specialty Start Date End Date Sierra Edge MD PCP - General Internal Medicine 01/11/1308/12/15 Cody Murcia MD PCP - General Internal Medicine 08/13/15 05/19/21 Juliet Torres MD PCP - General Internal Medicine 06/18/21 documented as of this encounter
--- OUTSIDE RECORDS SUMMARY | 2025-01-09 15:18 | XMS_ITS | Encounter Summary ---
Author Organization [facility] Address [address] [place] [address] Care Team Providers Care Payroll Analyst Name Role Phone Sierra Edge MD Primary Care Provider Unavailable Cody Murcia MD Primary Care Provider Juliet Hoffman MD Primary Care Provider Unavailabl e Encounter Details Date Type Department Care Team Description 08/23/2014 Wine Steward Report Medical Records [address] [place] [address] Mateo Zeng Social History Tobacco Use Types [...] on filedocumented in this encounter Care Teams Payroll Analyst Relationship Specialty Start Date End Date Sierra Edge MD PCP - General Internal Medicine 01/11/1308/12/15 Cody Murcia MD PCP - General Internal Medicine 08/13/15 05/19/21 Juliet Torres MD PCP - General Internal Medicine 06/18/21 documented as of this encounter
--- OUTSIDE RECORDS SUMMARY | 2025-01-09 15:18 | XMS_ITS | Encounter Summary ---
Author Organization [facility] Address [address] [place] [address] Care Team Providers Care Boat Driver Name Role Phone Sierra Edge MD Primary Care Provider Unavailable Cody Murcia MD Primary Care Provider Juliet Hoffman MD Primary Care Provider Unavailabl e Encounter Details Date Type Department Care Team Description 08/06/2015 [facility] Medical Records [address] [place] [address] Anya Luque PA-C Social History Tobacco Use [...] on filedocumented in this encounter Care Teams Boat Driver Relationship Specialty Start Date End Date Sierra Edge MD PCP - General Internal Medicine 01/11/1308/12/15 Cody Murcia MD PCP - General Internal Medicine 08/13/15 05/19/21 Juliet Torres MD PCP - General Internal Medicine 06/18/21 documented as of this encounter
--- OUTSIDE RECORDS SUMMARY | 2025-01-09 15:18 | XMS_ITS | Encounter Summary ---
Author Organization [facility] Address [address] [place] [address] Care Team Providers Care Rock Wool Applicator Name Role Phone Sierra Edge MD Primary Care Provider Unavailable Cody Murcia MD Primary Care Provider Juliet Hoffman MD Primary Care Provider Unavailabl e Encounter Details Date Type Department Care Team Description 11/12/2013 Pt. Non Urgent Medic al Question Adult Medicine [address] [address] Sierra Edge MD Social History Tobacco Use [...] on filedocumented in this encounter Care Teams Rock Wool Applicator Relationship Specialty Start Date End Date Sierra Edge MD PCP - General Internal Medicine 01/11/1308/12/15 Cody Murcia MD PCP - General Internal Medicine 08/13/15 05/19/21 Juliet Torres MD PCP - General Internal Medicine 06/18/21 documented as of this encounter
--- OUTSIDE RECORDS SUMMARY | 2025-01-09 15:18 | XMS_ITS | Encounter Summary ---
Author Organization [facility] Address [address] [place] [address] Care Team Providers Care Human Resources Leader Name Role Phone Sierra Edge MD Primary Care Provider Unavailable Cody Murcia MD Primary Care Provider Juliet Hoffman MD Primary Care Provider Unavailabl e Encounter Details Date Type Department Care Team Description 04/10/2014 Sales Effectiveness Manager Report Medical Records [address] [place] [address] Michi Campos MD Social History Tobacco Use [...] on filedocumented in this encounter Care Teams Human Resources Leader Relationship Specialty Start Date End Date Sierra Edge MD PCP - General Internal Medicine 01/11/1308/12/15 Cody Murcia MD PCP - General Internal Medicine 08/13/15 05/19/21 Juliet Torres MD PCP - General Internal Medicine 06/18/21 documented as of this encounter
== END 2025-01-09 14:41 | disposition home or self-care (01) ==
LOC: HO.HGI 14:05
PROVIDERS: PCP Internal Medicine; Visit Provider Nurse Practitioner Family
DX: K57.90 Diverticulosis of intestine, part unspecified, without perforation or abscess without bleeding (principal); Z86.0101 Personal history of adenomatous and serrated colon polyps; K58.1 Irritable bowel syndrome with constipation; K21.9 Gastro-esophageal reflux disease without esophagitis; Z12.11 Encounter for screening for malignant neoplasm of colon
CPT/HCPCS: 99214; G2211

== ENCOUNTER → 2025-01-09 14:05 | Outpatient (BNVA) | payer OTHER, SELFPAY | PROVIDERS: PCP Internal Medicine; Visit Provider Nurse Practitioner Family | DX: Z12.11 Encounter for screening for malignant neoplasm of colon (principal); K57.90 Diverticulosis of intestine, part unspecified, without perforation or abscess without bleeding; K58.1 Irritable bowel syndrome with constipation; K21.9 Gastro-esophageal reflux disease without esophagitis; K52.9 Noninfective gastroenteritis and colitis, unspecified; D36.9 Benign neoplasm, unspecified site | CPT/HCPCS: 99212 ==

== ENCOUNTER 2025-03-27 11:36 | Outpatient (REF) | payer OTHER, SELFPAY ==
[2025-03-27 13:43] LABS: MANUAL DIFF FLAG NO
[2025-03-27 13:55] LABS: Hematocrit 37.5 % (37.0-47.0); Hemoglobin 12.7 g/dl (12.0-16.0); Imm Gran Abs Auto 0.01 X10*3/uL (0.00-0.03); Imm Gran Pct Auto 0.2 % (0.0-0.4); Lymphocytes Absolute Auto 1.2 X10*3/uL (1.2-4.9); Mean Corpuscular HGB Conc 33.9 g/dl (31.0-35.0); Mean Corpuscular Hemoglobin 31.1 pg (27.0-33.0); Mean Corpuscular Volume 91.9 fL (80.0-98.0); NRBC Abs Auto 0.000 X10*3/uL (0.0-0.012); NRBC Pct Auto 0.0 /100WBC (0.0-0.2); Platelet Count 326 X10*3/uL (160-400); Red Blood Count 4.08 X10*6/uL (4.20-5.50); White Blood Count 5.3 X10*3/uL (4.8-10.8)
[2025-03-27 15:06] LABS: Alanine Aminotransferase 14 U/L (0-31); Albumin Level 4.0 g/dL (3.5-5.0); Alkaline Phosphatase 83 U/L (39-117); Anion Gap 10 (12-20); Aspartate Amino Transferase 20 U/L (5-31); Blood Urea Nitrogen 22 mg/dL (9-16); Calcium 9.1 mg/dL (8.4-10.2); Carbon Dioxide 26 mmol/L (22-29); Chloride 104 mmol/L (96-108); Estimated Glomerular Filt Rate 53; Potassium 4.4 mmol/L (3.3-5.1); Sodium 136 mmol/L (135-145); Total Protein 7.1 g/dL (6.5-8.0)
[2025-03-27 15:07] LABS: Vitamin B12 522 pg/mL (200-900)
[2025-04-02 08:09] LABS: Vitamin D 25-OH, D2 <4; Vitamin D 25-OH, D3 41
[2025-04-02 08:11] LABS: Vitamin D 25-OH, Total 41
== END 2025-03-27 11:37 | disposition home or self-care (01) ==
LOC: HO.HMGCLDS 11:36
PROVIDERS: PCP Internal Medicine; Visit Provider Internal Medicine
DX: M79.7 Fibromyalgia (principal); F41.1 Generalized anxiety disorder; D17.21 Benign lipomatous neoplasm of skin and subcutaneous tissue of right arm; N32.81 Overactive bladder; K21.9 Gastro-esophageal reflux disease without esophagitis; M47.817 Spondylosis without myelopathy or radiculopathy, lumbosacral region; M47.812 Spondylosis without myelopathy or radiculopathy, cervical region; G43.919 Migraine, unspecified, intractable, without status migrainosus; K58.1 Irritable bowel syndrome with constipation; F33.42 Major depressive disorder, recurrent, in full remission; E66.01 Morbid (severe) obesity due to excess calories; Z68.41 Body mass index [BMI] 40.0-44.9, adult; E78.9 Disorder of lipoprotein metabolism, unspecified; Z91.09 Other allergy status, other than to drugs and biological substances; Z79.899 Other long term (current) drug therapy
CPT/HCPCS: 36415; 80053; 82306; 82607; 83721; 84443; 85025; 99212

== ENCOUNTER 2025-03-27 11:36 | Outpatient (AMB) | payer OTHER, SELFPAY ==
[2025-03-27 11:38] VITALS: BP 132/82; PULSE 91; O2SAT 98; BMI 42.6
--- NOTE | 2025-03-27 11:38 | A.OFFPC_ITS ---
Vital Signs 03/27/25 11:38 Height 5 ft 7 in Weight 272 lb BMI 42.6 BP 132/82 Blood Pressure Location Lt brachial Position Sitting Pulse 91 Pulse Source Pulse Oximeter Pulse Oximetry (%) 98 Oxygen Delivery Method Room Air Intake Visit Reasons: 3m follow up Cabinet Professional Required: No Accompanied by: Self / Same As Patient Allergies codeine (Tylenol-Codeine) Allergy (Severe, Verified 03/27/25 11:39) Vomiting compazine Allergy (Severe, Verified 03/27/25 11:39) Seizure hydromorphone (From DILAUDID) Allergy (Severe, Verified 03/27/25 11:39) VOMITING,DIZZY meperidine (Demerol) Allergy (Severe, Verified 03/27/25 11:39) Rash prednisone Allergy (Severe, Verified 03/27/25 11:39) skin blistering amoxicillin (AMOXICILLIN) Allergy (Intermediate, Verified 03/27/25 11:39) HIVES, THRUSH naproxen Adverse Reaction (Intermediate, Verified 03/27/25 11:39) Family History of Kidney Disease Medication List - Last Reconciled 03/27/25 by Juliet Torres MD cane quad cane celecoxib 200 mg PO DAILY cyclobenzaprine 10 mg PO BID PRN duloxetine 60 mg PO DAILY fluticasone propionate 50 mcg/actuation 1 spray intranasal BID hydrocodone-acetaminophen 5-325 mg 1 tab PO .qhs PRN 30 days loratadine 10 mg PO DAILY 90 days lorazepam 0.5 mg PO DAILY PRN omeprazole 40 mg PO DAILY@0630 tolterodine (Detrol) 2 mg PO BID 90 days Ventolin HFA 90 mcg/actuation (albuterol sulfate) 2 puffs inhalation Q6H PRN 90 days NS Tobacco use date assessed: 10/26/24 Dental Screening Dental Screen Date: 10/26/24 HPI 3m follow up HPI Details History - The patient is a 54-year-old female pr esenting with concerns regarding medication management, recent lab results, and general health. - She reports occasional use of Percocet for severe neck and back pain due to joint issues, now managed more effectively with acupuncture. - She has a history of slightly compromi sed kidney function, which has shown improvement over the past year. - The patient experienced elevated liver enzymes associated with a past episode of diverticulitis, resulting in dietary changes including reduced gluten, dairy, and sugar intake. - High cholesterol noted last year (LDL was 177), with dietary adjustments made to address this issue. - Discussed difficulties with sleeping, which have significantly improved, alongside overall health improvements attributed to moving to a less stressful living environment. - She also notes historical issues with migraines, which have almost completely resolved. - Reports a history of fibromyalgia, wit h recent observation of a bump on the right elbow, noticed yesterday. Medical History: - Fibromyalgia - Chronic neck and back pain - Compromised kidney function (improved) - Diverticulitis (past) - High cholesterol (past) - Sleep disturbances (improved) - Migraines (historically present, impro edith) Social History: - Recently relocated to [place]; reports the move has reduced stress and improved overall well-being. - Lives with ; no longer cohabita ting with daughter or nephew, which has simplified household dynamics. - works in [employer], and comm [place] is manageable. - Successfully managing diet to be glute n-free, dairy-reduced, and sugar-free, aiding in weight management and overall health. Medications - Celebrex for joint pain management - Cyclobenzaprine - Duloxetine 60 mg - Loratadine - Omeprazole - Lorazepam, 1 tablet daily as needed fo r anxiety - Percocet, used occasionally for severe neck and back pain - Nasal spray, unspecified use Problem List - Fibromyalgia - Chronic neck and back pain - High cholesterol - Compromised kidney function - History of diverticulitis - generalized anxiety - allergies - chronic GERD - urine incontinence - skin lipoma right elbow Diagnostic results - Labs: Previous CBC within normal limit s; slightly compromised kidney function (previously 49, now improved to 57 eGFR); elevated liver enzymes compared to the previous year; high LDL cholesterol last year (177). Patient Instructions - Continue current medications as discus sed. - Maintain dietary changes to manage cho lesterol. - If experiencing severe pain or issues, consider tramadol as an alternative to Percocet, or continue occasional use of Percocet as needed. For back and joint pains - Schedule and complete labs as planned to monitor kidney function and cholesterol levels. - refill on lorazepam 30 tablets sent as well - follow-up 3 months Review of Systems General: No fever no chills neurological: No headaches no dizziness ear nose throat: No sore throat no hearing difficulty no ear pain cardiovascular: No syncope, no chest pain, no palpitations gastrointestinal: No nausea vomiting or diarrhea endocrine: No polyuria polydipsia no heat intolerance genitourinary: No dysuria skin: No new complaints Physical Exam general: No acute distress HEENT: No acute findings neck: Supple, occasional neck pain respiratory system: Able to talk in full sentences, no audible wheeze no stridor cardiovascular: S1-S2 RRR, blood pressure 132/82 gastrointestinal: No pain, IBS stable extremities: Lipoma felt lateral aspect of right elbow, elbow has full range of motion no pain MOLDING TECHNICIAN: Alert awake oriented x3 motor sensory intact skin: Normal turgor, occasional itching PFSH Medical History Arm numbness left Neck pain Concussion Numbness and tingling in left arm Diverticulosis Tubular adenoma Osteoarthritis of left knee Chronic GERD Morbid obesity IBS (irritable bowel syndrome) Depression Asthma Anxiety disorder Chronic back pain Neuropathy Cholecystitis Fibromyalgia Arthritis Surgical History Hx of knee surgery History of total left knee replacement History of esophagogastroduodenoscopy (EGD) H/O colonoscopy H/O knee surgery H/O oophorectomy Hx of section Family History Maternal Grandmother Ovarian ca Sister Slow to wake up after anesthesia Other Substance use disorder Social History Household Members: Spouse Housing: House Are you a primary resident care coordinator to a significant other at home: No Do you presently have visiting nurse or other home services: No Alcohol intake: current Alcohol intake frequency: holidays/special occasions only Alcohol type: beer Comment: COUNTS CORRECT Patient Tobacco Use Status: Former Tobacco user Tobacco use type: Cigarette Years Smoked: 15 years e-Cigarette/Vaping Use: Never Used Substance Use Type: Marijuana Advance Directives Date on File: 04/13/23 service: No 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al status: unemployed 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 Cognitive needs: No Hearing needs: No Vision needs: No Female Reproductive History Menstrual Age of Menarche: 12 Questionnaire Thrive Questionnaire Date Thrive assessed: 03/27/25 I am a: Patient What is your living situation today?: I choose not to answer this question Within the past 12 months, did the food you bought not last and you didn't have the money to get more?: Often true Within the past 12 months, did you worry whether your food would run out before you got money to buy more?: Often true Do you have trouble paying for medicines?: No Do you have trouble getting transportation to medical appointments?: No Do you have trouble paying your heating and electricity bill?: Yes Do you have trouble taking care of your child, family member or friend?: I choose not to answer this question Do you have trouble with day-to-day activities such as bathing, preparing meals, shopping, managing finances, etc.?: Yes Are you currently unemployed and looking for a job?: I choose not to answer this question Are you interested in more education?: No Please select the resources that you would like help with: None THRIVE Score: 3 MIKE-7 AMB Questionnaire MIKE-7 Date MIKE - 7 assessed: 10/26/24 Source: Developed by Drs. Joshua Munoz, Claudia Taylor, Kojo Frye and colleagues, with an educational jessica from [employer]. Physical exam (Primary Care) Vital Signs: Last Vital Signs Pulse 91 03/27/25 11:38 BP 132/82 03/27/25 11:38 Pulse Ox 98 03/27/25 11:38 Oxygen Delivery Method Room Air 03/27/25 11:38 BMI result Body Mass Index 42.6 Tobacco/Smoking Status: Tobacco use Status Tobacco use date assessed 10/26/24 03/27/25 11:44 Patient Tobacco Use Status Former Tobacco user 03/27/25 11:44 Tobacco use type Cigarette 03/27/25 11:44 e-Cigarette/Vaping Use Never Used 03/27/25 11:44 Thrive Assessment: Date of Thrive Assessment Date Thrive assessed 03/27/25 03/27/25 11:44 Coding Level of Care Code Est Pt Level 5 (93549) Diagnoses Fibromyalgia M79.7 Anxiety, generalized F41.1 Lipoma of right upper extremity D17.21 Laterality: right Overactive bladder N32.81 Environmental allergies Z91.09 Chronic GERD K21.9 Spondylosis of lumbosacral region without myelopathy or radiculopathy M47.817 Spinal osteoarthritis complication: without myelopathy or radiculopathy Cervical spondylosis M47.812 Intractable migraine without status migrainosus, unspecified migraine type G43.919 Intractability: intractable Migraine type: unspecified Status migrainosus presence: without status migrainosus Irritable bowel syndrome with constipation K58.1 Irritable bowel syndrome type: with constipation Morbid obesity due to excess calories E66.01 Recurrent major depressive disorder, in full remission F33.42 Active/Remission status: in full remission Lipid disorder E78.9 Time Spent (min) 40 Comment Reviewing chart/labs/skwe-ml-ixlq/coordination of care Assessment & Plan Assessment & Plan (1) Fibromyalgia: Code(s): M79.7 - Fibromyalgia Category: Medical (2) Anxiety, generalized: Code(s): F41.1 - Generalized anxiety disorder Category: Medical (3) Lipoma of arm: Code(s): D17.20 - Benign lipomatous neoplasm of skin and subcutaneous tissue of unspecified limb Category: Medical Qualifiers: Laterality: right Qualified Code(s): D17.21 - Benign lipomatous neoplasm of skin and subcutaneous tissue of right arm (4) Overactive bladder: Code(s): N32.81 - Overactive bladder Category: Medical (5) Environmental allergies: Code(s): Z91.09 - Other allergy status, other than to drugs and biological substances Category: Medical (6) Chronic GERD: Code(s): K21.9 - Gastro-esophageal reflux disease without esophagitis Category: Medical (7) Lumbosacral spondylosis: Code(s): M47.817 - Spondylosis without myelopathy or radiculopathy, lumbosacral region Category: Medical Qualifiers: Spinal osteoarthritis complication: without myelopathy or radiculopathy Qualified Code(s): M47.817 - Spondylosis without myelopathy or radiculopathy, lumbosacral region (8) Cervical spondylosis: Code(s): M47.812 - Spondylosis without myelopathy or radiculopathy, cervical region Category: Medical (9) Migraine headache: Code(s): G43.909 - Migraine, unspecified, not intractable, without status migrainosus Category: Medical Qualifiers: Intractability: intractable Migraine type: unspecified Status migrainosus presence: without status migrainosus Qualified Code(s): G43.919 - Migraine, unspecified, intractable, without status migrainosus (10) IBS (irritable bowel syndrome): Code(s): K58.9 - Irritable bowel syndrome, unspecified Category: Medical Qualifiers: Irritable bowel syndrome type: with constipation Qualified Code(s): K58.1 - Irritable bowel syndrome with constipation (11) Morbid obesity due to excess calories: Code(s): E66.01 - Morbid (severe) obesity due to excess calories Category: Medical (12) Major depression, recurrent: Code(s): F33.9 - Major depressive disorder, recurrent, unspecified Category: Medical Qualifiers: Active/Remission status: in full remission Qualified Code(s): F33.42 - Major depressive disorder, recurrent, in full remission (13) Lipid disorder: Code(s): E78.9 - Disorder of lipoprotein metabolism, unspecified Category: Medical Plan History - The patient is a 54-year-old female presenting with concerns regarding medication management, recent lab results, and general health. - She reports occasional use of Percocet for severe neck and back pain due to joint issues, now managed more effectively with acupuncture. - She has a history of slightly compromised kidney function, which has shown improvement over the past year. - The patient experienced elevated liver enzymes associated with a past episode of diverticulitis, resulting in dietary changes including reduced gluten, dairy, and sugar intake. - High cholesterol noted last year (LDL was 177), with dietary adjustments made to address this issue. - Discussed difficulties with sleeping, which have significantly improved, alongside overall health improvements attributed to moving to a less stressful living environment. - She also notes historical issues with migraines, which have almost completely resolved. - Reports a history of fibromyalgia, with recent observation of a bump on the right elbow, noticed yesterday. Medical History: - Fibromyalgia - Chronic neck and back pain - Compromised kidney function (improved) - Diverticulitis (past) - High cholesterol (past) - Sleep disturbances (improved) - Migraines (historically present, improved) Social History: - Recently relocated to [place]; reports the move has reduced stress and improved overall well-being. - Lives with ; no longer cohabitating with daughter or nephew, which has simplified household dynamics. - works in [employer], and commute is manageable. - Successfully managing diet to be gluten-free, dairy-reduced, and sugar-free, aiding in weight management and overall health. Medications - Celebrex for joint pain management - Cyclobenzaprine - Duloxetine 60 mg - Loratadine - Omeprazole - Lorazepam, 1 tablet daily as needed for anxiety - Percocet, used occasionally for severe neck and back pain - Nasal spray, unspecified use Problem List - Fibromyalgia - Chronic neck and back pain - High cholesterol - Compromised kidney function - History of diverticulitis - generalized anxiety - allergies - chronic GERD - urine incontinence - skin lipoma right elbow Diagnostic results - Labs: Previous CBC within normal limits; slightly compromised kidney function (previously 49, now improved to 57 eGFR); elevated liver enzymes compared to the previous year; high LDL cholesterol last year (177). Patient Instructions - Continue current medications as discussed. - Maintain dietary changes to manage cholesterol. - If experiencing severe pain or issues, consider tramadol as an alternative to Percocet, or continue occasional use of Percocet as needed. For back and joint pains - Schedule and complete labs as planned to monitor kidney function and c holesterol levels. - refill on lorazepam 30 tablets sent as well - follow-up 3 months Orders: Orders Complete Blood Count Auto Diff Today E66.01 - Morbid (severe) obesity due to excess calories, E78.9 - Disorder of lipoprotein metabolism, unspecified, F33.42 - Major depressive disorder, recurrent, in full remission, F41.1 - Generalized anxiety disorder, G43.919 - Migraine, unspecified, intractable, without status migrainosus, K21.9 - Gastro-esophageal reflux disease without esophagitis, K58.1 - Irritable bowel syndrome with constipation, M47.812 - Spondylosis without myelopathy or radiculopathy, cervical region, M47.817 - Spondylosis without myelopathy or radiculopathy, lumbosacral region, M79.7 - Fibromyalgia, N32.81 - Overactive bladder, Z91.09 - Other allergy status, other than to drugs and biological substances Comprehensive Met. Panel Today E66.01 - Morbid (severe) obesity due to excess calories, E78.9 - Disorder of lipoprotein metabolism, unspecified, F33.42 - Major depressive disorder, recurrent, in full remission, F41.1 - Generalized anx iety disorder, G43.919 - Migraine, unspecified, intractable, without status migrainosus, K21.9 - Gastro-esophageal reflux disease without esophagitis, K58.1 - Irritable bowel syndrome with constipation, M47.812 - Spondylosis without myelopathy or radiculopathy, cervical region, M47.817 - Spondylosis without myelopathy or radiculopathy, lumbosacral region, M79.7 - Fibromyalgia, N32.81 - Overactive bladder, Z91.09 - Other allergy status, other than to drugs and biological substances LDL Cholesterol Direct Today E66.01 - Morbid (severe) obesity due to excess calories, E78.9 - Disorder of lipoprotein metabolism, unspecified, F33.42 - Major depressive disorder, recurrent, in full remission, F41.1 - Generalized anxiety disorder, G43.919 - Migraine, unspecified, intractable, without status migrainosus, K21.9 - Gastro-esophageal reflux disease without esophagitis, K58.1 - Irritable bowel syndrome with constipation, M47.812 - Spondylosis without myelopathy or radiculopathy, cervical region, M47.817 - Spondylosis without myelopathy or radiculopathy, lumbosacral region, M79.7 - Fibromyalgia, N32.81 - Overactive bladder, Z91.09 - Other allergy status, other than to drugs and biological substances Vitamin D 25-OH (D2 and D3) Today E66.01 - Morbid (severe) obesity due to excess calories, E78.9 - Disorder of lipoprotein metabolism, unspecified, F33.42 - Major depressive disorder, recurrent, in full remission, F41.1 - Generalized anxiety disorder, G43.919 - Migraine, unspecified, intractable, without status migrainosus, K21.9 - Gastro-esophageal reflux disease without esophagitis, K58.1 - Irritable bowel syndrome with constipation, M47.812 - Spondylosis without myelopathy or radiculopathy, cervical region, M47.817 - Spondylosis without myelopathy or radiculopathy, lumbosacral region, M79.7 - Fibromyalgia, N32.81 - Overactive bladder, Z91.09 - Other allergy status, other than to drugs and biological substances Vitamin B12 Today E66.01 - Morbid (severe) obesity due to excess calories, E78.9 - Disorder of lipoprotein metabolism, unspecified, F33.42 - Major depressive disorder, recurrent, in full remission, F41.1 - Generalized anxiety disorder, G43.919 - Migraine, unspecified, intractable, without status migrainosus, K21.9 - Gastro-esophageal reflux disease without esophagitis, K58.1 - Irritable bowel syndrome with constipation, M47.812 - Spondylosis without myelopathy or radiculopathy, cervical region, M47.817 - Spondylosis without myelopathy or radiculopathy, lumbosacral region, M79.7 - Fibromyalgia, N32.81 - Overactive bladder, Z91.09 - Other allergy status, other than to drugs and biological substances TSH reflex Free T4 Today E66.01 - Morbid (severe) obesity due to excess calories, E78.9 - Disorder of lipoprotein metabolism, unspecified, F33.42 - Major depressive disorder, recurrent, in full remission, F41.1 - Generalized anxiety disorder, G43.919 - Migraine, unspecified, intractable, without status migrainosus, K21.9 - Gastro-esophageal reflux disease without esophagitis, K58.1 - Irritable bowel syndrome with constipation, M47.812 - Spondylosis without myelopathy or radiculopathy, cervical region, M47.817 - Spondylosis without myelopathy or radiculopathy, lumbosacral region, M79.7 - Fibromyalgia, N32.81 - Overactive bladder, Z91.09 - Other allergy status, other than to drugs and biological substances Medications: Refilled hydrocodone-acetaminophen 5-325 mg Partial Fill upon patient request. 1 tab PO .qhs PRN 30 tabs 0RF pain 30 days G44.86 - Cervicogenic headache, M47.812 - Spondylosis without myelopathy or radiculopathy, cervical region lorazepam 0.5 mg PO DAILY PRN 30 tabs 0RF anxiety
== END 2025-03-27 12:02 | disposition home or self-care (01) ==
PROVIDERS: PCP Internal Medicine; Visit Provider Internal Medicine
DX: M79.7 Fibromyalgia (principal); F41.1 Generalized anxiety disorder; E66.01 Morbid (severe) obesity due to excess calories; Z68.41 Body mass index [BMI] 40.0-44.9, adult; D17.21 Benign lipomatous neoplasm of skin and subcutaneous tissue of right arm; N32.81 Overactive bladder; Z91.09 Other allergy status, other than to drugs and biological substances; K21.9 Gastro-esophageal reflux disease without esophagitis; M47.817 Spondylosis without myelopathy or radiculopathy, lumbosacral region; M47.812 Spondylosis without myelopathy or radiculopathy, cervical region; G43.919 Migraine, unspecified, intractable, without status migrainosus; K58.1 Irritable bowel syndrome with constipation

== ENCOUNTER 2025-05-22 08:28 | Outpatient (REF) | payer OTHER, SELFPAY | END 2025-05-22 08:29 | disposition home or self-care (01) | LOC: HO.HOSX 08:28 | PROVIDERS: Visit Provider Physician Assistant | DX: Z13.89 Encounter for screening for other disorder (principal) ==

== ENCOUNTER 2025-07-19 08:14 | Outpatient (REF) | payer OTHER, SELFPAY ==
--- OUTSIDE RECORDS SUMMARY | 2025-07-19 08:23 | XMS_ITS | Encounter Summary ---
Author Organization [facility] Address [facility] [place] [address] Care Team Providers Care Waxer Floor Name Role Phone Juliet Torres MD Primary Care Provider Unavailabl e Encounter Details Date Type Department Care Team Description 12/01/2023 Release of Information Medical Records [address] [place] [id number] Abstract, Provider Social History Tobacco Use Types [...] on filedocumented in this encounter Care Teams Waxer Floor Relationship Specialty Start Date End Date Juliet Torres MD PCP - General Internal Medicine 06/18/21 documented as of this encounter
--- OUTSIDE RECORDS SUMMARY | 2025-07-19 08:23 | XMS_ITS | Encounter Summary ---
Author Organization [facility] Address [address] [place] [address] Care Team Providers Care Workforce Analyst Name Role Phone Sierra Edge MD Primary Care Provider Unavailable Cody Murcia MD Primary Care Provider Juliet Hoffman MD Primary Care Provider Unavailabl e Encounter Details Date Type Department Care Team Description 04/15/2014 Pt. Non Urgent Medic al Question Adult Medicine [address] [address] Sierra Edge MD Social History Tobacco Use [...] Subject: Pt 1 I just spoke with [facility] and i have an [...] on filedocumented in this encounter Care Teams Workforce Analyst Relationship Specialty Start Date End Date Sierra Edge MD PCP - General Internal Medicine 01/11/1308/12/15 Cody Murcia MD PCP - General Internal Medicine 08/13/15 05/19/21 Juliet Torres MD PCP - General Internal Medicine 06/18/21 documented as of this encounter
--- OUTSIDE RECORDS SUMMARY | 2025-07-19 08:24 | XMS_ITS | Clinical Summary ---
Author Organization [facility] Address [address] [place] [address] Care Team Providers Care Window Glazier Helper Name Role Phone Juliet Torres MD Primary Care Provider Unavailabl e Allergies Active Allergy Reactions Severity Noted Date Comments Amoxicillin Trihydrate 01/20/2007 SORES IN MOUTH Benzyl Enc-Tfiurrbsyfneqjkt-Bnzizuc in 01/20/2007 PRE-SEIZURE Meperidine Hcl Itching/Pruritus 01/20/2007 [...] Capsules by mouth daily. 0 Active Black Sbylve-YzlImwvntr-Ch gnol (Estroven Menopause Relief) Cap Take 1 [...] 92 06/23/2021 1:29 PM EDT Temperature 36.4 C (97.6 F) 06/23/2021 1:29 PM EDT Respiratory Rate 15 07/24/2015 2:17 PM EST [...] history exists SOCIAL NEEDS SCREENING 09/12/2024 INFLUENZA (#1) 2025 07/10/2013 PNEUMOCOCCAL VACCINE FOR HIG H RISK PATIENTS (#2) 2035 11/22/2013 Care Teams Window Glazier Helper Relationship Specialty Start Date End Date Juliet Torres MD PCP - General Internal Medicine 06/18/21
--- OUTSIDE RECORDS SUMMARY | 2025-07-19 08:25 | XMS_ITS | Encounter Summary ---
Author Organization [facility] Address [address] [place] [address] Care Team Providers Care Disk Recoater Name Role Phone Sierra Edge MD Primary Care Provider Unavailable Cody Murcia MD Primary Care Provider Juliet Hoffman MD Primary Care Provider Unavailabl e Encounter Details Date Type Department Care Team Description 04/25/2014 Pt. Non Urgent Medic al Question Adult Medicine [address] [address] Sierra Edge MD Social History Tobacco Use [...] on filedocumented in this encounter Care Teams Disk Recoater Relationship Specialty Start Date End Date Sierra Edge MD PCP - General Internal Medicine 01/11/1308/12/15 Cody Murcia MD PCP - General Internal Medicine 08/13/15 05/19/21 Juliet Torres MD PCP - General Internal Medicine 06/18/21 documented as of this encounter
--- OUTSIDE RECORDS SUMMARY | 2025-07-19 08:25 | XMS_ITS | Encounter Summary ---
Author Organization [facility] Address [address] [place] [address] Care Team Providers Care Depot Manager Name Role Phone Sierra Edge MD Primary Care Provider Unavailable Cody Murcia MD Primary Care Provider Juliet Hoffman MD Primary Care Provider Unavailabl e Encounter Details Date Type Department Care Team Description 06/13/2014 Transfer Records Medical Records [address] [place] [address] Abstract, Provider Social History Tobacco Use Types [...] on filedocumented in this encounter Care Teams Depot Manager Relationship Specialty Start Date End Date Sierra Edge MD PCP - General Internal Medicine 01/11/1308/12/15 Cody Murcia MD PCP - General Internal Medicine 08/13/15 05/19/21 Juliet Torres MD PCP - General Internal Medicine 06/18/21 documented as of this encounter
--- OUTSIDE RECORDS SUMMARY | 2025-07-19 08:25 | XMS_ITS | Encounter Summary ---
Author Organization [facility] Address [address] [place] [address] Care Team Providers Care Rn Complex Care Name Role Phone Sierra Edge MD Primary Care Provider Unavailable Cody Murcia MD Primary Care Provider Juliet Hoffman MD Primary Care Provider Unavailabl e Encounter Details Date Type Department Care Team Description 06/17/2014 Pt. Non Urgent Medic al Question Adult Medicine [address] [address] Sierra Edge MD Social History Tobacco Use [...] on filedocumented in this encounter Care Teams Rn Complex Care Relationship Specialty Start Date End Date Sierra Edge MD PCP - General Internal Medicine 01/11/1308/12/15 Cody Murcia MD PCP - General Internal Medicine 08/13/15 05/19/21 Juliet Torres MD PCP - General Internal Medicine 06/18/21 documented as of this encounter
--- OUTSIDE RECORDS SUMMARY | 2025-07-19 08:25 | XMS_ITS | Encounter Summary ---
Author Organization [facility] Address [address] [place] [address] Care Team Providers Care Hotel Maintenance Worker Name Role Phone Juliet Torres MD Primary Care Provider Unavaillucien e Encounter Details Date Type Department Care Team Description 05/20/2021 Pt. Non Urgent Medic al Question [facility] Medical [facility] [address] [place] [address] [place] [id number] Pierre Ghotra MD Social History Tobacco [...] on filedocumented in this encounter Care Teams Hotel Maintenance Worker Relationship Specialty Start Date End Date Juliet Torres MD PCP - General Internal Medicine 06/18/21 documented as of this encounter
--- OUTSIDE RECORDS SUMMARY | 2025-07-19 08:26 | XMS_ITS | Encounter Summary ---
Author Organization [facility] Address [address] [place] [address] Care Team Providers Care Locomotive Crane Operator Name Role Phone Sierra Edge MD Primary Care Provider Unavailable Cody Murcia MD Primary Care Provider Juliet Hoffman MD Primary Care Provider Unavailabl e Reason for Visit * Reason Comments E-prescribe Rx Request Encounter Details Date Type Department Care Team Description 02/03/2014 Refill Adult Medicine [address] [address] Karissa Mckeon PA-C E-prescribe Rx Request Social [...] NO Patients current insurance carrier is: Payor: [email or web address] FFS Plan: FFS HMO $0 [place] [id number] Product Type: MEDICAID RISK documented in this encounter Plan of Treatment Not on file documented as of this encounter Visit Diagnoses Not on filedocumented in this encounter Care Teams Locomotive Crane Operator Relationship Specialty Start Date End Date Sierra Edge MD PCP - General Internal Medicine 01/11/1308/12/15 Cody Murcia MD PCP - General Internal Medicine 08/13/15 05/19/21 Juliet Torres MD PCP - General Internal Medicine 06/18/21 documented as of this encounter
--- OUTSIDE RECORDS SUMMARY | 2025-07-19 08:26 | XMS_ITS | Encounter Summary ---
Author Organization [facility] Address [address] [place] [address] Care Team Providers Care Managed Care Coordinator Name Role Phone Sierra Edge MD Primary Care Provider Unavailable Cody Murcia MD Primary Care Provider Juliet Hoffman MD Primary Care Provider Unavailabl e Encounter Details Date Type Department Care Team Description 01/17/2014 Masonry Supervisor Report Medical Records [address] [place] [address] Michi Campos MD Social History Tobacco Use [...] on filedocumented in this encounter Care Teams Managed Care Coordinator Relationship Specialty Start Date End Date Sierra Edge MD PCP - General Internal Medicine 01/11/1308/12/15 Cody Murcia MD PCP - General Internal Medicine 08/13/15 05/19/21 Juliet Torres MD PCP - General Internal Medicine 06/18/21 documented as of this encounter
--- OUTSIDE RECORDS SUMMARY | 2025-07-19 08:26 | XMS_ITS | Encounter Summary ---
Author Organization [facility] Address [address] [place] [address] Care Team Providers Care Vehicle Leasing And Rental Manager Name Role Phone Sierra Edge MD Primary Care Provider Unavailable Cody Murcia MD Primary Care Provider Juliet Hoffman MD Primary Care Provider Unavailabl e Encounter Details Date Type Department Care Team Description 02/05/2014 Screening Tech Report Medical Records [address] [place] [address] Michi Campos MD Social History Tobacco Use [...] on filedocumented in this encounter Care Teams Vehicle Leasing And Rental Manager Relationship Specialty Start Date End Date Sierra Edge MD PCP - General Internal Medicine 01/11/1308/12/15 Cody Murcia MD PCP - General Internal Medicine 08/13/15 05/19/21 Juliet Torres MD PCP - General Internal Medicine 06/18/21 documented as of this encounter
--- OUTSIDE RECORDS SUMMARY | 2025-07-19 08:26 | XMS_ITS | Encounter Summary ---
Author Organization [facility] Address [address] [place] [address] Care Team Providers Care Director Of Operations Name Role Phone Sierra Edge MD Primary Care Provider Unavailable Cody Murcia MD Primary Care Provider Juliet Hoffman MD Primary Care Provider Unavailabl e Encounter Details Date Type Department Care Team Description 05/29/2015 Pt. Non Urgent Medic al Question Adult Medicine - [address] [address] Sierra Edge MD Social History Tobacco Use [...] , her name is Brit Kendall at [facility] her number is [phone]. thank you for your help in both of these matters. documented in this encounter Plan of Treatment Not on file documented as of this encounter Visit Diagnoses Not on filedocumented in this encounter Care Teams Director Of Operations Relationship Specialty Start Date End Date Sierra Edge MD PCP - General Internal Medicine 01/11/1308/12/15 Cody Murcia MD PCP - General Internal Medicine 08/13/15 05/19/21 Juliet Torres MD PCP - General Internal Medicine 06/18/21 documented as of this encounter
--- OUTSIDE RECORDS SUMMARY | 2025-07-19 08:26 | XMS_ITS | Encounter Summary ---
Author Organization [facility] Address [address] [place] [address] Care Team Providers Care Nut Cracker Name Role Phone Sierra Edge MD Primary Care Provider Unavailable Cody Murcia MD Primary Care Provider Juliet Hoffman MD Primary Care Provider Unavailabl e Encounter Details Date Type Department Care Team Description 03/31/2015 Distribution Driver Report Medical Records [address] [place] [address] Michi Campos MD Social History Tobacco Use [...] on filedocumented in this encounter Care Teams Nut Cracker Relationship Specialty Start Date End Date Sierra Edge MD PCP - General Internal Medicine 01/11/1308/12/15 Cody Murcia MD PCP - General Internal Medicine 08/13/15 05/19/21 Juliet Torres MD PCP - General Internal Medicine 06/18/21 documented as of this encounter
--- OUTSIDE RECORDS SUMMARY | 2025-07-19 08:26 | XMS_ITS | Encounter Summary ---
Author Organization [facility] Address [address] [place] [address] Care Team Providers Care Chart Clerk Name Role Phone Sierra Edge MD Primary Care Provider Unavailable Cody Murcia MD Primary Care Provider Juliet Hoffman MD Primary Care Provider Unavailabl e Encounter Details Date Type Department Care Team Description 04/10/2014 Sales Manager Prearranged Funerals Report Medical Records [address] [place] [address] Michi Campos MD Social History Tobacco Use [...] on filedocumented in this encounter Care Teams Chart Clerk Relationship Specialty Start Date End Date Sierra Edge MD PCP - General Internal Medicine 01/11/1308/12/15 Cody Murcia MD PCP - General Internal Medicine 08/13/15 05/19/21 Juliet Torres MD PCP - General Internal Medicine 06/18/21 documented as of this encounter
--- OUTSIDE RECORDS SUMMARY | 2025-07-19 08:26 | XMS_ITS | Encounter Summary ---
Author Organization [facility] Address [address] [place] [address] Care Team Providers Care Green Building Architect Name Role Phone Sierra Edge MD Primary Care Provider Unavailable Cody Murcia MD Primary Care Provider Juliet Hoffman MD Primary Care Provider Unavailabl e Encounter Details Date Type Department Care Team Description 11/12/2013 Pt. Non Urgent Medic al Question Adult Medicine [address] [address] Sierra Edge MD Social History Tobacco Use [...] on filedocumented in this encounter Care Teams Green Building Architect Relationship Specialty Start Date End Date Sierra Edge MD PCP - General Internal Medicine 01/11/1308/12/15 Cody Murcia MD PCP - General Internal Medicine 08/13/15 05/19/21 Juliet Torres MD PCP - General Internal Medicine 06/18/21 documented as of this encounter
--- OUTSIDE RECORDS SUMMARY | 2025-07-19 08:27 | XMS_ITS | Encounter Summary ---
Author Organization [facility] Address [address] [place] [address] Care Team Providers Care Physician/Allergy/Immunology Name Role Phone Sierra Edge MD Primary Care Provider Unavailable Cody Murcia MD Primary Care Provider Juliet Hoffman MD Primary Care Provider Unavailabl e Reason for Visit * Reason Onset Date Comments PT-1 06/13/2015 Encounter Details Date Type Department Care Team Description 06/13/2015 Telephone Adult Medicine - [address] [address] Sierra Edge MD PT-1 Social History Tobacco [...] nop PT-1 form should be completed by [facility] office, there are directions in the smart [...] Rosa Taylor - 06/16/2015 4:52 PM EDT [phone] * Telephone Encounter - Maddie Carbajal M.A. - 06/16/2015 4:38 PM EDT MH # needs to begin with a 1 * Telephone Encounter - Bee Castro - 06/13/2015 12:22 PM EDT Effective 09/09/14 ALL [facility] patients requesting a PT1 form be completed must call this direct line or the 800# on their insurance card. [facility] will no longer be completing these forms, [facility] staff will. Member Services at [facility] will give the patient a dedicated PT1 form telephone #. All other [facility] products proceed as usual. Patients [facility] Pt. demographics and [facility] Ins information verified YES Is this a NEW request or a Renewal? renewal Name of treating facility: [facility] Mailing address: [address] [place] [id number] Is the mailing address accurate? YES. If no, update all screens in Registration Has [facility] Insurance coverage been verified? YES Name (first & last) of treating provider Unknown to BSR Reason the patient is seeing the above provider: unknown to [facility] Address[place]zip for treating [facility] [address] Phone # of treating provider n/a What [...] on filedocumented in this encounter Care Teams Physician/Allergy/Immunology Relationship Specialty Start Date End Date Sierra Edge MD PCP - General Internal Medicine 01/11/1308/12/15 Cody Murcia MD PCP - General Internal Medicine 08/13/15 05/19/21 Juliet Torres MD PCP - General Internal Medicine 06/18/21 documented as of this encounter
--- OUTSIDE RECORDS SUMMARY | 2025-07-19 08:27 | XMS_ITS | Encounter Summary ---
Author Organization [facility] Address [address] [place] [address] Care Team Providers Care Charter Representative Name Role Phone Sierra Edge MD Primary Care Provider Unavailable Cody Murcia MD Primary Care Provider Juliet Hoffman MD Primary Care Provider Unavailabl e Encounter Details Date Type Department Care Team Description 12/24/2013 Pt. Non Urgent Medic al Question Adult Medicine [address] [address] Sierra Edge MD Social History Tobacco Use [...] on filedocumented in this encounter Care Teams Charter Representative Relationship Specialty Start Date End Date Sierra Edge MD PCP - General Internal Medicine 01/11/1308/12/15 Cody Murcia MD PCP - General Internal Medicine 08/13/15 05/19/21 Juliet Torres MD PCP - General Internal Medicine 06/18/21 documented as of this encounter
--- OUTSIDE RECORDS SUMMARY | 2025-07-19 08:28 | XMS_ITS | Encounter Summary ---
Author Organization [facility] [place] [facility] Address [address] [place] [address] Care Team Providers Care Soiled Linen Distributor Name Role Phone Sierra Edge MD Primary Care Provider Unavailable Cody Murcia MD Primary Care Provider Juliet Hoffman MD Primary Care Provider Unavailabl e Encounter Details Date Type Department Care Team Description 06/25/2015 Crushed Stone Grader Report Medical Records [address] [place] [address] Michi Campos MD Social History Tobacco Use [...] on filedocumented in this encounter Care Teams Soiled Linen Distributor Relationship Specialty Start Date End Date Sierra Edge MD PCP - General Internal Medicine 01/11/1308/12/15 Cody Murcia MD PCP - General Internal Medicine 08/13/15 05/19/21 Juliet Torres MD PCP - General Internal Medicine 06/18/21 documented as of this encounter
--- OUTSIDE RECORDS SUMMARY | 2025-07-19 08:28 | XMS_ITS | Encounter Summary ---
Author Organization [facility] Address [address] [place] [address] Care Team Providers Care Varnish Mixer Name Role Phone Sierra Edge MD Primary Care Provider Unavailable Cody Murcia MD Primary Care Provider Juliet Hoffman MD Primary Care Provider Unavailabl e Encounter Details Date Type Department Care Team Description 05/15/2013 Transfer Records Medical Records [address] [place] [address] Abstract, Provider Social History Tobacco Use Types [...] on filedocumented in this encounter Care Teams Varnish Mixer Relationship Specialty Start Date End Date Sierra Edge MD PCP - General Internal Medicine 01/11/1308/12/15 Cody Murcia MD PCP - General Internal Medicine 08/13/15 05/19/21 Juliet Torres MD PCP - General Internal Medicine 06/18/21 documented as of this encounter
--- OUTSIDE RECORDS SUMMARY | 2025-07-19 08:28 | XMS_ITS | Encounter Summary ---
Author Organization [facility] Address [address] [place] [address] Care Team Providers Care Legal Project Manager Name Role Phone Sierra Edge MD Primary Care Provider Unavailable Cody Murcia MD Primary Care Provider Juliet Hoffman MD Primary Care Provider Unavailabl e Encounter Details Date Type Department Care Team Description 05/09/2013 Environmental Programs Specialist Report Medical Records [address] [place] [address] Michi Campos MD Social History Tobacco Use [...] on filedocumented in this encounter Care Teams Legal Project Manager Relationship Specialty Start Date End Date Sierra Edge MD PCP - General Internal Medicine 01/11/1308/12/15 Cody Murcia MD PCP - General Internal Medicine 08/13/15 05/19/21 Juliet Torres MD PCP - General Internal Medicine 06/18/21 documented as of this encounter
--- OUTSIDE RECORDS SUMMARY | 2025-07-19 08:29 | XMS_ITS | Encounter Summary ---
Author Organization [facility] Address [address] [place] [address] Care Team Providers Care Volunteer Services Manager Name Role Phone Sierra Edge MD Primary Care Provider Unavailable Cody Murcia MD Primary Care Provider Juliet Hoffman MD Primary Care Provider Unavailabl e Encounter Details Date Type Department Care Team Description 10/10/2014 Senior Clinical Data Coordinator Report Medical Records [address] [place] [address] Michi Campos MD Social History Tobacco Use [...] on filedocumented in this encounter Care Teams Volunteer Services Manager Relationship Specialty Start Date End Date Sierra Edge MD PCP - General Internal Medicine 01/11/1308/12/15 Cody Murcia MD PCP - General Internal Medicine 08/13/15 05/19/21 Juliet Torres MD PCP - General Internal Medicine 06/18/21 documented as of this encounter
--- OUTSIDE RECORDS SUMMARY | 2025-07-19 08:29 | XMS_ITS | Encounter Summary ---
Author Organization [facility] Address [address] [place] [address] Care Team Providers Care Informatics Nurse Name Role Phone Sierra Edge MD Primary Care Provider Unavailable Cody Murcia MD Primary Care Provider Juliet Hoffman MD Primary Care Provider Unavailabl e Encounter Details Date Type Department Care Team Description 10/04/2014 Release of Information Medical Records [address] [place] [id number] Abstract, Provider Social History Tobacco Use Types [...] on filedocumented in this encounter Care Teams Informatics Nurse Relationship Specialty Start Date End Date Sierra Edge MD PCP - General Internal Medicine 01/11/1308/12/15 Cody Murcia MD PCP - General Internal Medicine 08/13/15 05/19/21 Juliet Torres MD PCP - General Internal Medicine 06/18/21 documented as of this encounter
--- OUTSIDE RECORDS SUMMARY | 2025-07-19 08:29 | XMS_ITS | Encounter Summary ---
Author Organization [facility] Address [address] [place] [address] Care Team Providers Care Depot Manager Name Role Phone Sierra Edge MD Primary Care Provider Unavailable Cody Murcia MD Primary Care Provider Juliet Hoffman MD Primary Care Provider Unavailabl e Encounter Details Date Type Department Care Team Description 01/21/2015 Mercury Cell Cleaner Report Medical Records [address] [place] [address] Michi Campos MD Social History Tobacco Use [...]
--- OUTSIDE RECORDS SUMMARY | 2025-07-19 08:29 | XMS_ITS | Encounter Summary ---
Author Organization [facility] Address [address] [place] [address] Care Team Providers Care Synchronizer Name Role Phone Sierra Edge MD Primary Care Provider Unavailable Cody Murcia MD Primary Care Provider Juliet Hoffman MD Primary Care Provider Unavailabl e Encounter Details Date Type Department Care Team Description 04/26/2013 Winding Lathe Operator Report Medical Records [address] [place] [address] Valerie Riggins NP Social History Tobacco Use [...] on filedocumented in this encounter Care Teams Synchronizer Relationship Specialty Start Date End Date Sierra Edge MD PCP - General Internal Medicine 01/11/1308/12/15 Cody Murcia MD PCP - General Internal Medicine 08/13/15 05/19/21 Juliet Torres MD PCP - General Internal Medicine 06/18/21 documented as of this encounter
--- OUTSIDE RECORDS SUMMARY | 2025-07-19 08:29 | XMS_ITS | Encounter Summary ---
Author Organization [facility] Address [address] [place] [address] Care Team Providers Care Emergency Room Clerk Name Role Phone Sierra Edge MD Primary Care Provider Unavailable Cody Murcia MD Primary Care Provider Juliet Hoffman MD Primary Care Provider Unavailabl e Encounter Details Date Type Department Care Team Description 12/24/2014 Pt. Non Urgent Medic al Question Adult Medicine - [address] [address] Sierra Edge MD Social History Tobacco Use [...] and things of that nature. thank you/ [phone] documented in this encounter Plan of Treatment Not on file documented as of this encounter Visit Diagnoses Not on filedocumented in this encounter Care Teams Emergency Room Clerk Relationship Specialty Start Date End Date Sierra Edge MD PCP - General Internal Medicine 01/11/1308/12/15 Cody Murcia MD PCP - General Internal Medicine 08/13/15 05/19/21 Juliet Torres MD PCP - General Internal Medicine 06/18/21 documented as of this encounter
--- OUTSIDE RECORDS SUMMARY | 2025-07-19 08:29 | XMS_ITS | Encounter Summary ---
Author Organization [facility] Address [address] [place] [address] Care Team Providers Care Model Builder Name Role Phone Sierra Edge MD Primary Care Provider Unavailable Cody Murcia MD Primary Care Provider Juliet Hoffman MD Primary Care Provider Unavailabl e Encounter Details Date Type Department Care Team Description 11/21/2014 Concreter Report Medical Records [address] [place] [id number] Mateo Zeng Social History Tobacco Use Types [...] on filedocumented in this encounter Care Teams Model Builder Relationship Specialty Start Date End Date Sierra Edge MD PCP - General Internal Medicine 01/11/1308/12/15 Cody Murcia MD PCP - General Internal Medicine 08/13/15 05/19/21 Juliet Torres MD PCP - General Internal Medicine 06/18/21 documented as of this encounter
--- OUTSIDE RECORDS SUMMARY | 2025-07-19 08:29 | XMS_ITS | Encounter Summary ---
Author Organization [facility] Address [address] [place] [address] Care Team Providers Care Heavy Lift Rigger Name Role Phone Shruthi Flores MD Primary Care Provider Unavailable Jesika Kim MD Primary Care Provider Sierra Al MD Primary Care Provider Unavailable Cody Murcia MD Primary Care Provider Juliet Hoffman MD Primary Care Provider Unavailabl e Encounter Details Date Type Department Care Team Description 04/16/2011 Release of Information Medical Records [address] [place] [id number] Abstract, Provider Social History Tobacco Use Types [...] on filedocumented in this encounter Care Teams Heavy Lift Rigger Relationship Specialty Start Date End Date Shruthi Flores MD PCP - General 04/19/0601/09 Jesika Kim MD PCP - General Family Practice 01/10/13 01/10/13 Sierra Edge MD PCP - General Internal Medicine 01/11/1308/12/15 Cody Murcia MD PCP - General Internal Medicine 08/13/15 05/19/21 Juliet Torres MD PCP - General Internal Medicine 06/18/21 documented as of this encounter
--- OUTSIDE RECORDS SUMMARY | 2025-07-19 08:29 | XMS_ITS | Encounter Summary ---
Author Organization [facility] Address [address] [place] [address] Care Team Providers Care Front Office Help Name Role Phone Sierra Edge MD Primary Care Provider Unavailable Cody Murcia MD Primary Care Provider Juliet Hoffman MD Primary Care Provider Unavailabl e Encounter Details Date Type Department Care Team Description 07/22/2014 Principal Automation Engineer Report Medical Records [address] [place] [address] Michi Campos MD Social History Tobacco Use [...] filedocumented in this encounter Care Teams Front Office Help Relationship Specialty Start Date End Date Sierra Edge MD PCP - General Internal Medicine 01/11/1308/12/15 Cody Murcia MD PCP - General Internal Medicine 08/13/15 05/19/21 Juliet Torres MD PCP - General Internal Medicine 06/18/21 documented as of this encounter
--- OUTSIDE RECORDS SUMMARY | 2025-07-19 08:29 | XMS_ITS | Clinical Summary ---
Author Organization [facility] Address [address] [address] Phone Care Team Providers Care Online Merchandiser Name Role Phone Juliet Torres MD Primary Care Provider [phone] Social History Tobacco Use Types Packs/Day Years Used Date Smoking Tobacco: Never Assessed Education Answer Date Recorded Are you interested in more education? Not on katt e 01/08/2023 Are you concerned about learning? Not on file 01/08/2023 No 01/08/2023 No 01/08/2023 Digital Access Answer Date Recorded No 02/06/2023 No 02/06/2023 No 02/06/2023 Reliable internet access at home? Not on file 02/06/2023 Device with a working camera? Not on file Comments Unknown Sex and Gender Information Value Date Recorded Sex Assigned at Not on file Legal Sex Female 10:21 AM EDT Gender Identity Not on file Sexual Orientation Not on file Plan of Treatment Health Maintenance Due Date Last Done Comments LIPID PANEL 1970 DEPRESSION SCREENING 1982 SMOKING Hx and SMOKELESS TOBACCO SCREENING 1983 HEPATITIS C SCREENING 1988 HIV ONE-TIME SCREENING (18-65 YEARS) 1988 PAP SMEAR 1991 MAMMOGRAM 2010 COLOGUARD 2015 COLONOSCOPY 2015 COLORECTAL CANCER SCREENING 2015 FIT TEST 2015 FOBT 2015 SIGMOIDOSCOPY 2015 VIRTUAL COLONOSCOPY 2015 Adult Td,Tdap Booster 08/21/2019 08/21/2009 PNEUMOCOCCAL VACCINES (50+ years) (2 of 2 - PCV) 2020 11/22/2013 ZOSTER VACCINES (1 of 2) 2020 INFLUENZA VACCINE (#1) 2025 7, 08/20/2016, 07/10/2013, Additional history exists COVID-19 VACCINE (2024- season) 2025 01/24/2021, 12/25/2020 RSV VACCINE (1 - 1-dose 75+ series) 2045 HEPATITIS A VACCINES Aged Out No long er eligible based on patient's age to complete this topic HIB VACCINES Aged Out No longer eligi ble based on patient's age to complete this topic MENINGOCOCCAL VACCINES (ACWY) Aged Out No longer eligible based on patient's age to complete this topic MENINGOCOCCAL VACCINES (B) Aged Out N o longer eligible based on patient's age to complete this topic Medical Devices Not on file [place] [address] [place] [address] [place] [address] [place] [address] [place] [address] [place] [address] [place] [address] [place] [address] [place] [address] [place] [address] ACO Care Teams Online Merchandiser Relationship Specialty Start Date End Date Juliet Torres MD [facility] [place] [id number] PCP - General Internal Medicine 08/03/21 Additional Source Comments The information contained in this document represents components of the legal health record. It is not the complete legal health record.[facility]
== END 2025-07-19 08:15 | disposition home or self-care (01) ==
LOC: HO.HOSX 08:14
PROVIDERS: Visit Provider Physician Assistant
DX: Z13.89 Encounter for screening for other disorder (principal)

== ENCOUNTER 2025-08-22 08:27 | Outpatient (REF) | payer OTHER, SELFPAY ==
[2025-08-22 18:00] LABS: MANUAL DIFF FLAG NO
[2025-08-22 18:17] LABS: Alanine Aminotransferase 15 U/L (0-31); Albumin Level 4.3 g/dL (3.5-5.0); Alkaline Phosphatase 89 U/L (39-117); Anion Gap 12 (12-20); Aspartate Amino Transferase 22 U/L (5-31); Blood Urea Nitrogen 31 mg/dL (9-16); Calcium 9.4 mg/dL (8.4-10.2); Carbon Dioxide 24 mmol/L (22-29); Chloride 103 mmol/L (96-108); Estimated Glomerular Filt Rate 53; Lipase 24 U/L (8-78); Potassium 4.0 mmol/L (3.3-5.1); Sodium 135 mmol/L (135-145); Total Protein 7.5 g/dL (6.5-8.0)
[2025-08-22 18:26] LABS: Hematocrit 39.0 % (37.0-47.0); Hemoglobin 13.0 g/dl (12.0-16.0); Imm Gran Abs Auto 0.01 X10*3/uL (0.00-0.03); Imm Gran Pct Auto 0.1 % (0.0-0.4); Lymphocytes Absolute Auto 1.8 X10*3/uL (1.2-4.9); Mean Corpuscular HGB Conc 33.3 g/dl (31.0-35.0); Mean Corpuscular Hemoglobin 30.7 pg (27.0-33.0); Mean Corpuscular Volume 92.2 fL (80.0-98.0); NRBC Abs Auto 0.000 X10*3/uL (0.0-0.012); NRBC Pct Auto 0.0 /100WBC (0.0-0.2); Platelet Count 329 X10*3/uL (160-400); Red Blood Count 4.23 X10*6/uL (4.20-5.50); White Blood Count 7.4 X10*3/uL (4.8-10.8)
[2025-08-22 18:42] LABS: Amylase 89 U/L (28-100)
== END 2025-08-22 08:28 | disposition home or self-care (01) ==
LOC: HO.HMGCLDS 08:27
PROVIDERS: PCP Internal Medicine; Visit Provider Internal Medicine
DX: E66.01 Morbid (severe) obesity due to excess calories (principal); Z91.09 Other allergy status, other than to drugs and biological substances; R94.4 Abnormal results of kidney function studies; E78.9 Disorder of lipoprotein metabolism, unspecified; N32.81 Overactive bladder; M79.7 Fibromyalgia; M62.838 Other muscle spasm; F41.1 Generalized anxiety disorder; Z68.41 Body mass index [BMI] 40.0-44.9, adult; Z83.49 Family history of other endocrine, nutritional and metabolic diseases
CPT/HCPCS: 36415; 80053; 82150; 83690; 83721; 84443; 85025

== ENCOUNTER 2025-08-22 08:27 | Outpatient (AMB) | payer OTHER, SELFPAY ==
[2025-08-22 09:34] VITALS: BMI 41.2
--- NOTE | 2025-08-22 09:34 | A.OFFPC_ITS ---
Vital Signs 08/22/25 09:34 Height 5 ft 7 in Weight 263 lb BMI 41.2 Intake Visit Reasons: weight loss/options Allergies codeine (Tylenol-Codeine) Allergy (Severe, Verified 03/27/25 11:39) Vomiting compazine Allergy (Severe, Verified 03/27/25 11:39) Seizure hydromorphone (From DILAUDID) Allergy (Severe, Verified 03/27/25 11:39) VOMITING,DIZZY meperidine (Demerol) Allergy (Severe, Verified 03/27/25 11:39) Rash prednisone Allergy (Severe, Verified 03/27/25 11:39) skin blistering amoxicillin (AMOXICILLIN) Allergy (Intermediate, Verified 03/27/25 11:39) HIVES, THRUSH naproxen Adverse Reaction (Intermediate, Verified 03/27/25 11:39) Family History of Kidney Disease Medication List - Last Reconciled 08/22/25 by Juliet Torres MD bisacodyl (Dulcolax (bisacodyl)) 20 mg (4 x 5 mg) PO ONCE 1 day cane quad cane celecoxib 200 mg PO DAILY cyclobenzaprine 10 mg PO BID 30 days duloxetine 60 mg PO DAILY fluticasone propionate 50 mcg/actuation 1 spray intranasal BID hydrocodone-acetaminophen 5-325 mg 1 tab PO .qhs PRN 30 days loratadine 10 mg PO DAILY 90 days lorazepam 0.5 mg PO DAILY PRN omeprazole 40 mg PO DAILY@0630 polyethylene glycol 3350 (Miralax) 238 grams PO ONCE tolterodine (Detrol) 2 mg PO BID 90 days Ventolin HFA 90 mcg/actuation (albuterol sulfate) 2 puffs inhalation Q6H PRN 90 days NS Tobacco use date assessed: 10/26/24 Dental Screening Dental Screen Date: 10/26/24 HPI HPI Comments History of Present Illness Details History of Present Illness The patient is a 54 year old female presenting with a follow-up visit and to discuss options for weight loss. Obesity: - The patient reports her weight has sta bilized at 263 lbs and she is seeking assistance to jumpstart further weight loss. - She has been following a diet with les s gluten, less dairy, and no sugar since she had colitis. - Her height is 5 feet 7 inches, with a BMI of 41.2. Chronic Kidney Disease: - The patient has a history of compromis ed kidney function. - Labs from March showed a GFR of 53, whi ch was a decline from 57 in September of this year. Chronic Pain: - The patient has a history of fibromyal becka, chronic back pain, and chronic neck pain. - She was last seen by orthopedics last year and by pain management at [facility] for her neck pain in November of this year. - She reports that acupuncture has been excellent for pain management. - She has upcoming appointments with ndhomer canales and neurology next month. Mental Health: - The patient has a history of depressio n and anxiety. - Her anxiety has been much better since she moved, and she is not currently using her anxiety medication. Gastrointestinal Issues: - The patient has a history of chronic G ERD and diverticulitis. - She last saw gastroenterology in December of this year. Medical History: - Obesity, current weight 263 lbs with a BMI of 41.2. - Fibromyalgia. - Chronic back and neck pain. - Compromised kidney function with GFR o f 53 in March, decreased from 57 in September. - Diverticulitis in the past. - Sleep disturbances. - Migraine. - Chronic GERD. - Urinary incontinence. - Colitis. - Depression. - Anxiety, which has improved since her recent move. Medications: - Celebrex, prescribed by orthopedics. - Duloxetine (Cymbalta) 60 mg, prescribe d by neurology for depression. - Omeprazole. - Loratadine. - Detrol. - flonase nasal spray. - Cyclobenzaprine, taken daily as a musc le relaxer. 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 - Diet: Follows a diet with less gluten, less dairy, and no sugar due to colitis. - Weight Management: Patient reports her weight has plateaued at 263 lbs and is seeking options to promote further weight loss. Family History: - Reports a family history of hypothyroi dism in her mother. - Denies a family history of thyroid can cer. Diagnostic Results: - Labs (March): - GFR was 53, declined from 57 in Januar y. - LDL was 146. - Thyroid function was normal. - Vitamin D and B12 were within normal l imits. [facility] Medical History Arm numbness left Neck pain Concussion Numbness and tingling in left arm Diverticulosis Tubular adenoma Osteoarthritis of left knee Chronic GERD Morbid obesity IBS (irritable bowel syndrome) Depression Asthma Anxiety disorder Chronic back pain Neuropathy Cholecystitis Fibromyalgia Arthritis Surgical History Hx of knee surgery History of total left knee replacement History of esophagogastroduodenoscopy (EGD) H/O colonoscopy H/O knee surgery H/O oophorectomy Hx of section Family History Maternal Grandmother Ovarian ca Sister Slow to wake up after anesthesia Other Substance use disorder Social History Household Members: Spouse Housing: House Are you a primary care director rn to a significant other at home: No Do you presently have visiting nurse or other home services: No Alcohol intake: current Alcohol intake frequency: holidays/special occasions only Alcohol type: beer Comment: COUNTS CORRECT Patient Tobacco Use Status: Former Tobacco user Tobacco use type: Cigarette Years Smoked: 15 years e-Cigarette/Vaping Use: Never Used Substance Use Type: Marijuana Advance Directives Date on File: 04/13/23 service: No 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al status: unemployed 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 Joshua Munoz, Claudia Taylor, Kojo Frye and colleagues, with an educational jessica from [employer]. Review of Systems Narrative Review of Systems - General: No fever no chills - Neurological: No headaches no dizziness - Ear nose throat: No sore throat no hearing difficulty no ear pain - Cardiovascular: No syncope, no chest pain, no palpitations - Gastrointestinal: No nausea vomiting or diarrhea Physical exam (Primary Care) BMI result Body Mass Index 41.2 Tobacco/Smoking Status: Tobacco use Status Tobacco use date assessed 10/26/24 08/22/25 09:37 Patient Tobacco Use Status Former Tobacco user 08/22/25 09:37 Tobacco use type Cigarette 08/22/25 09:37 e-Cigarette/Vaping Use Never Used 08/22/25 09:37 Thrive Assessment: Date of Thrive Assessment Date Thrive assessed 09/29/24 08/22/25 09:37 Telehealth Telehealth Telehealth Platform: [employer] Location of provider rendering services: practice address Location of patient: address on file Patient Identification confirmed using: Name, : Yes Telehealth method: video Patient verbally consented to treatment: Yes Patient verbally consented to billing insurance company: Yes Patient informed of any privacy concerns related to visit: Yes Coding Level of Care Code Tele Est Pt Level 4 (02489) Diagnoses Decreased GFR R94.4 Morbid obesity due to excess calories E66.01 Fibromyalgia M79.7 Overactive bladder N32.81 Muscle spasm M62.838 Environmental allergies Z91.09 Lipid disorder E78.9 Family history of hypothyroidism Z83.49 Anxiety, generalized F41.1 Time Spent (min) 30 Comment total time spend in care of this patient Assessment & Plan Assessment & Plan (1) Decreased GFR: Code(s): R94.4 - Abnormal results of kidney function studies Category: Medical (2) Morbid obesity due to excess calories: Code(s): E66.01 - Morbid (severe) obesity due to excess calories Category: Medical (3) Fibromyalgia: Code(s): M79.7 - Fibromyalgia Category: Medical (4) Overactive bladder: Code(s): N32.81 - Overactive bladder Category: Medical (5) Muscle spasm: Code(s): M62.838 - Other muscle spasm Category: Medical (6) Environmental allergies: Code(s): Z91.09 - Other allergy status, other than to drugs and biological substances Category: Medical (7) Lipid disorder: Code(s): E78.9 - Disorder of lipoprotein metabolism, unspecified Category: Medical (8) Family history of hypothyroidism: Code(s): Z83.49 - Family history of other endocrine, nutritional and metabolic diseases Category: Medical (9) Anxiety, generalized: Code(s): F41.1 - Generalized anxiety disorder Category: Medical Plan Problem List - Morbid Obesity - Fibromyalgia - Chronic kidney disease - Gastroesophageal reflux disease (GERD) - Urinary incontinence - Chronic back and neck pain - Depression - History of diverticulitis - Sleep disturbances - Anxiety Plan - Ordered lab work to assess for anemia and check kidney, liver, pancreas, and thyroid function, as well as cholesterol levels, before considering weight loss medication. - Discussed weight loss medication options, including oral phentermine and injectable medications, along with their respective side effects and insurance coverage challenges. - The patient expressed interest in trying oral medication first. - Will address medication options after reviewing the lab results. - If oral medication (a controlled substance) is started, the patient will need to come in for monthly weight checks for refills to monitor for side effects and efficacy. - The patient will be seen for a follow-up visit after lab work is completed to discuss the plan further. - continue other meds Orders: Orders Complete Blood Count Auto Diff Today E66.01 - Morbid (severe) obesity due to excess calories, E78.9 - Disorder of lipoprotein metabolism, unspecified, M62.8 38 - Other muscle spasm, M79.7 - Fibromyalgia, N32.81 - Overactive bladder, Z91.09 - Other allergy status, other than to drugs and biological substances Comprehensive Met. Panel Today E66.01 - Morbid (severe) obesity due to excess calories, E78.9 - Disorder of lipoprotein metabolism, unspecified, M62.838 - Other muscle spasm, M79.7 - Fibromyalgia, N32.81 - Overactive bladder, Z91.09 - Other allergy status, other than to drugs and biological substances TSH reflex Free T4 Today E66.01 - Morbid (severe) obesity due to excess calories, E78.9 - Disorder of lipoprotein metabolism, unspecified, M62.838 - Other muscle spasm, M79.7 - Fibromyalgia, N32.81 - Overactive bladder, Z91.09 - Other allergy status, other than to drugs and biological substances LDL Cholesterol Direct Today E66.01 - Morbid (severe) obesity due to excess calories, E78.9 - Disorder of lipoprotein metabolism, unspecified, M62.838 - Other muscle spasm, M79.7 - Fibromyalgia, N32.81 - Overactive bladder, Z91.09 - Other allergy status, other than to drugs and biological substances Lipase Today E66.01 - Morbid (severe) obesity due to excess calories, E78.9 - Disorder of lipoprotein metabolism, unspecified, M62.838 - Other muscle spasm, M79.7 - Fibromyalgia, N32.81 - Overactive bladder, Z91.09 - Other allergy status, other than to drugs and biological substances Amylase Today E66.01 - Morbid (severe) obesity due to excess calories, E78.9 - Disorder of lipoprotein metabolism, unspecified, M62.838 - Other muscle spasm, M79.7 - Fibromyalgia, N32.81 - Overactive bladder, Z91.09 - Other allergy status, other than to drugs and biological substances
== END 2025-08-22 11:43 | disposition home or self-care (01) ==
LOC: HO.HMCC 08:27
PROVIDERS: PCP Internal Medicine; Visit Provider Internal Medicine
DX: R94.4 Abnormal results of kidney function studies (principal); E66.01 Morbid (severe) obesity due to excess calories; M79.7 Fibromyalgia; N32.81 Overactive bladder; M62.838 Other muscle spasm; Z91.09 Other allergy status, other than to drugs and biological substances; E78.9 Disorder of lipoprotein metabolism, unspecified; Z83.49 Family history of other endocrine, nutritional and metabolic diseases; F41.1 Generalized anxiety disorder

== ENCOUNTER 2025-08-29 08:08 | Outpatient (AMB) | payer OTHER, SELFPAY ==
--- NOTE | 2025-08-29 08:19 | A.OFFPC_ITS ---
Vital Signs 08/29/25 08:21 Height 5 ft 7 in Intake Visit Reasons: follow up Durability Technician Required: No Accompanied by: Self / Same As Patient Allergies codeine (Tylenol-Codeine) Allergy (Severe, Verified 08/29/25 08:21) Vomiting compazine Allergy (Severe, Verified 08/29/25 08:21) Seizure hydromorphone (From DILAUDID) Allergy (Severe, Verified 08/29/25 08:21) VOMITING,DIZZY meperidine (Demerol) Allergy (Severe, Verified 08/29/25 08:21) Rash prednisone Allergy (Severe, Verified 08/29/25 08:21) skin blistering amoxicillin (AMOXICILLIN) Allergy (Intermediate, Verified 08/29/25 08:21) HIVES, THRUSH naproxen Adverse Reaction (Intermediate, Verified 08/29/25 08:21) Family History of Kidney Disease Medication List - Last Reconciled 08/29/25 by Juliet Torres MD bisacodyl (Dulcolax (bisacodyl)) 20 mg (4 x 5 mg) PO ONCE 1 day cane quad cane cyclobenzaprine 10 mg PO BID 30 days duloxetine 60 mg PO DAILY fluticasone propionate 50 mcg/actuation 1 spray intranasal BID hydrocodone-acetaminophen 5-325 mg 1 tab PO .qhs PRN 30 days loratadine 10 mg PO DAILY 90 days lorazepam 0.5 mg PO DAILY PRN omeprazole 40 mg PO DAILY@0630 polyethylene glycol 3350 (Miralax) 238 grams PO ONCE tirzepatide (weight loss) (Zepbound) 2.5 mg (0.5 mL) subcut QWEEK 30 days tolterodine (Detrol) 2 mg PO BID 90 days Ventolin HFA 90 mcg/actuation (albuterol sulfate) 2 puffs inhalation Q6H PRN 90 days NS Tobacco use date assessed: 08/29/25 Dental Screening Dental Screen Date: 08/29/25 Did you have a dental visit in the last 12 months?: Yes Did you have a dental problem in the last 6 months where you did not have access to dental care?: No Was dental information given to patient?: Patient has dentist HPI HPI Comments History of Present Illness Details History of Present Illness The patient is a 54 year old female presenting for a follow-up on her kidney function and medication management. Chronic Kidney Disease: - The patient's kidney function has been a recurring concern, with lab results showing fluctuations. - Her filtration rate was noted to be 49 in 2023, an improvement from a previous value, though it was normal at the beginning of 2023. - Current lab results are stable compare to March but remain abnormal. - She has been taking Celebrex, which wa s recently reduced to one pill daily, but she reports it is not very effective. Weight management: - The patient was being considered for hentermine for weight management. Social History: - Diet: She reports that she only drinks water. [facility] Medical History Arm numbness left Neck pain Concussion Numbness and tingling in left arm Diverticulosis Tubular adenoma Osteoarthritis of left knee Chronic GERD Morbid obesity IBS (irritable bowel syndrome) Depression Asthma Anxiety disorder Chronic back pain Neuropathy Cholecystitis Fibromyalgia Arthritis Surgical History Hx of knee surgery History of total left knee replacement History of esophagogastroduodenoscopy (EGD) H/O colonoscopy H/O knee surgery H/O oophorectomy Hx of section Family History Maternal Grandmother Ovarian ca Sister Slow to wake up after anesthesia Other Substance use disorder Social History Household Members: Spouse Housing: House Are you a primary child care cook to a significant other at home: No Do you presently have visiting nurse or other home services: No Alcohol intake: current Alcohol intake frequency: holidays/special occasions only Alcohol type: beer Comment: COUNTS CORRECT Patient Tobacco Use Status: Former Tobacco user Tobacco use type: Cigarette Years Smoked: 15 years e-Cigarette/Vaping Use: Never Used Substance Use Type: Marijuana Advance Directives Date on File: 04/13/23 service: No 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al status: unemployed 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 Joshua Munoz, Claudia Taylor, Kojo Frye and colleagues, with an educational jessica from [employer]. Review of Systems Narrative Review of Systems - General: No fever no chills - Neurological: No headaches no dizziness - Ear nose throat: No sore throat no hearing difficulty no ear pain - Cardiovascular: No syncope, no chest pain, no palpitations - Gastrointestinal: No nausea vomiting or diarrhea e Physical exam (Primary Care) Tobacco/Smoking Status: Tobacco use Status Tobacco use date assessed 08/29/25 08/29/25 08:22 Patient Tobacco Use Status Former Tobacco user 08/29/25 08:22 Tobacco use type Cigarette 08/29/25 08:22 e-Cigarette/Vaping Use Never Used 08/29/25 08:22 Thrive Assessment: Date of Thrive Assessment Date Thrive assessed 09/29/24 08/29/25 08:22 Narrative Telehealth Telehealth Telehealth Platform: ticketscript Location of provider rendering services: practice address Location of patient: address on file Patient Identification confirmed using: Name, : Yes Telehealth method: video Patient verbally consented to treatment: Yes Patient verbally consented to billing insurance company: Yes Patient informed of any privacy concerns related to visit: Yes Minutes spent on Phone/Video with Pt.: 13 Coding Level of Care Code Tele Est Pt Level 3 (29741) Diagnoses Stage 3a chronic kidney disease N18.31 Chronic kidney disease stage 3 subtype: stage 3a (GFR 45-59) Chronic kidney disease stage: stage 3 (moderate) Assessment & Plan Assessment & Plan (1) CKD (chronic kidney disease): Code(s): N18.9 - Chronic kidney disease, unspecified Category: Medical Qualifiers: Chronic kidney disease stage 3 subtype: stage 3a (GFR 45-59) Chronic kidney disease stage: stage 3 (moderate) Qualified Code(s): N18.31 - Chronic kidney disease, stage 3a Plan Problem List - Chronic kidney disease - Weight management Plan - The patient was advised to discontinue Celebrex as it is an NSAID and not beneficial for her kidneys. - The plan to start phentermine has been deferred due to its potential impact on her compromised kidney function. - An injectable medication beneficial for both weight management and kidney fu nction has been prescribed. - A prior authorization has been submitted to her insurance, citing chronic kidney disease as the rationale. - If the medication is approved, the patient will receive education on self- administration. - If the medication is not approved, a referral will be made to the weight management clinic at [facility]. - The patient is advised to avoid NSAIDs such as ibuprofen, naproxen, and Motrin to prevent further stress on her kidneys. - Recommendations were made to maintain adequate hydration by drinking plain water and avoiding flavored beverages. - Repeat labs to monitor kidney function are ordered to be done every three months, with the next set due in early November. Orders: Orders Basic Metabolic Panel 2 Months N18.9 - Chronic kidney disease, unspecified
== END 2025-08-29 09:02 | disposition home or self-care (01) ==
LOC: HO.HMCC 08:08
PROVIDERS: PCP Internal Medicine; Visit Provider Internal Medicine
DX: N18.31 Chronic kidney disease, stage 3a (principal)